=== PATIENT | male | born 1955 | race Caucasian/White ===

== ENCOUNTER → 2018-07-05 | Emergency (ER) | payer MEDICARE, OTHER ==
[~2018-07-05] MED LIST: D50W 50 ml Abboject IV ONE; Sodium Chloride 0.9% 1000 ML 1,000 ML IV SCH
--- NOTE | 2018-07-05 15:35 | ERPHSYRPT ---
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 pt last seen normally last pm. family checks on him. pt looking around confused but moving all ext. pt cannot answer questions. poor historian. pt can stand and walks slowly. Timing/Duration: today Severity: moderate Character of Deficits: unable to speak Baseline/Normal Cognition: alert but confused Current Cognition: alert but confused Baseline Gait: walks w/o assistance Associated Symptoms: confusion, other (does not follow commands), No nausea, No vomiting - Review of Systems Constitutional: No Symptoms Eyes: No Symptoms Ears, Nose, & Throat: No Symptoms Respiratory: No Symptoms Cardiac: No Symptoms Abdominal/Gastrointestinal: No Symptoms Genitourinary Symptoms: No Symptoms Musculoskeletal: No Symptoms Skin: No Symptoms Neurological: Speech Changes Psychological: No Symptoms Endocrine: No Symptoms Hematologic/Lymphatic: No Symptoms Immunological/Allergic: No Symptoms All Other Systems: Reviewed and Negative - Nursing Vital Signs Nursing Vital Signs: Initial Vital Signs O2 Sat by Pulse Oximetry 97 07/05/18 16:15 Pain Scale Pain Intensity 0 - Wallace Coma Scale Best Eye Response (Ciarra): (4) open spontaneously Best Verbal Response (Wallace): (3) inappropriate words Best Motor Response (Ciarra): (5) localizes to pain Ciarra Total: 12 - Physical Exam General Appearance: no apparent distress, alert, anxiety Eye Exam: bilateral eye: normal inspection, PERRL, EOMI Ears, Nose, Throat Exam: normal ENT inspection, moist mucous membranes Neck Exam: normal inspection, non-tender, supple, full range of motion Respiratory: normal breath sounds, lungs clear, airway intact, No chest tenderness, No respiratory distress, No accessory muscle use, No rhonchi, No wheezing, No stridor Cardiovascular: regular rate/rhythm, normal heart sounds, normal peripheral pulses Gastrointestinal: soft, normal bowel sounds Rectal Exam: not done Back Exam: normal inspection, normal range of motion, No CVA tenderness, No vertebral tenderness Extremity Exam: normal inspection, normal range of motion, pelvis stable Mental 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 Exam: normal hearing, PERRL, tongue midline, No facial asymmetry, No facial weakness Skin Exam: normal color, warm, dry SpO2 Interpretation: normal O2 Delivery: Room Air - Course Nursing assessment & vital signs reviewed: Yes EKG Interpreted by Me: RATE (68), Sinus Rhythm, NORMAL AXIS, 1st degree AV Block , Non-specific ST Changes, Other (no comparison) Ordered Tests: Active Orders 24 hr Category Date Time Status Accucheck STAT Care 07/05/18 15:35 Active Fleet Manager STAT Care 07/05/18 15:35 Active Clean Catch Urine Specimen STAT Care 07/05/18 15:35 Active EKG-ER Only STAT Care 07/05/18 15:35 Active Willams [Catheter-[place] Willams] STAT Care 07/05/18 17:18 Active IV Insertion STAT Care 07/05/18 15:35 Active NPO (ED) STAT Care 07/05/18 15:35 Active Pulse Oximetry (ED) STAT Care 07/05/18 15:35 Active HEAD WITHOUT CONTRAST [CT] Routine Exams 07/05/18 15:59 Taken CBC W DIFF Stat Lab 07/05/18 15:40 Completed CMP Stat Lab 07/05/18 15:40 Completed PROTIME WITH INR Stat Lab 07/05/18 15:40 Completed UA W/RFX UR CULTURE Stat Lab 07/05/18 17:24 Completed Urine Triage Profile Stat Lab 07/05/18 Received Medication Summary Generic Name Dose Route Start Last Admin Trade Name Freq PRN Reason Stop Dose Admin Sodium Chloride 1,000 mls @ 50 mls/hr 07/05/18 15:45 07/05/18 15:50 Sodium Chloride 0.9% 1000 Ml IV 08/04/18 15:44 50 mls/hr .Q20H ELIZABETH Administration Discontinued Medications Generic Name Dose Route Start Last Admin Trade Name Freq PRN Reason Stop Dose Admin Dextrose Confirm 07/05/18 17:13 D50w 50 Ml Abboject Administered 07/05/18 17:14 Dose 50 ml IV .STK-MED ONE Dextrose 25 ml 07/05/18 17:14 07/05/18 17:18 D50w 50 Ml Abboject IV 07/05/18 17:15 25 ml STAT ONE Administration Dextrose 25 ml 07/05/18 17:16 07/05/18 17:18 D50w 50 Ml Abboject IV 07/05/18 17:17 25 ml STAT ONE Administration Lab/Rad Data: Laboratory Result Diagrams 07/05/18 15:40 07/05/18 15:40 Laboratory Results 07/05/18 07/05/18 07/05/18 Range/Units 17:57 17:24 15:40 WBC (4.0-10.5) K/mm3 RBC (4.1-5.6) M/mm3 Hgb (12.5-18.0) gm/dl Hct (42-50) % MCV (78-100) fl MCH (26-32) pg MCHC (32-36) g/dl RDW (11.5-14.0) % Plt Count (150-450) K/mm3 MPV (6-9.5) fl Gran % (36.0-66.0) % Eos # (Auto) (0-0.5) Absolute Lymphs (auto) (1.0-4.6) Absolute Monos (auto) (0.0-1.3) Lymphocytes % (24.0-44.0) % Monocytes % (0.0-12.0) % Eosinophils % (0.00-5.0) % Basophils % (0.0-0.4) % Absolute Granulocytes (1.4-6.9) Basophils # (0-0.4) PT 16.3 H (8.83-12.87) SECONDS INR 1.40 (0.8-3.0) Sodium (137-145) mmol/L Potassium (3.5-5.1) mmol/L Chloride (98-107) mmol/L Carbon Dioxide (22-30) mmol/L Anion Gap (5-15) MEQ/L BUN (9-20) mg/dL Creatinine (0.66-1.25) mg/dL Estimated GFR ML/MIN Glucose (74-106) mg/dL Calcium (8.4-10.2) mg/dL Total Bilirubin (0.2-1.3) mg/dL AST (17-59) U/L ALT (0-50) U/L Alkaline Phosphatase (38-126) U/L Ammonia < 9 L (9-30) umol/L Serum Total Protein (6.3-8.2) g/dL Albumin (3.5-5.0) g/dL Urine Color YELLOW (YELLOW) Urine Appearance CLEAR (CLEAR) Urine pH 5.0 (5-6) Ur Specific [place] 1.008 (1.005-1.025) Urine Protein NEGATIVE (Negative) Urine Ketones NEGATIVE (NEGATIVE) Urine Blood NEGATIVE (0-5) Froylan/ul Urine Nitrite NEGATIVE (NEGATIVE) Urine Bilirubin NEGATIVE (NEGATIVE) Urine Urobilinogen NEGATIVE (0-1) mg/dL Ur Leukocyte Esterase NEGATIVE (NEGATIVE) Urine WBC (Auto) NONE (0-5) /HPF Urine RBC (Auto) NONE (0-2) /HPF U Epithel Cells (Auto) NONE (FEW) /HPF Urine Bacteria (Auto) NONE (NEGATIVE) /HPF Urine Mucus (Auto) SLIGHT (NEGATIVE) /HPF Urine Culture Reflexed NO (NO) Urine Glucose >=500 (NEGATIVE) mg/dL 07/05/18 07/05/18 Range/Units 15:40 15:40 WBC 10.0 (4.0-10.5) K/mm3 RBC 4.67 (4.1-5.6) M/mm3 Hgb 13.9 (12.5-18.0) gm/dl Hct 42.5 (42-50) % MCV 91.0 (78-100) fl MCH 29.8 (26-32) pg MCHC 32.7 (32-36) g/dl RDW 13.1 (11.5-14.0) % Plt Count 144 L (150-450) K/mm3 MPV 12.9 H (6-9.5) fl Gran % 80.6 H (36.0-66.0) % Eos # (Auto) 0.28 (0-0.5) Absolute Lymphs (auto) 0.83 L (1.0-4.6) Absolute Monos (auto) 0.81 (0.0-1.3) Lymphocytes % 8.3 L (24.0-44.0) % Monocytes % 8.1 (0.0-12.0) % Eosinophils % 2.8 (0.00-5.0) % Basophils % 0.2 (0.0-0.4) % Absolute Granulocytes 8.10 H (1.4-6.9) Basophils # 0.02 (0-0.4) PT (8.83-12.87) SECONDS INR (0.8-3.0) Sodium 136 L (137-145) mmol/L Potassium 4.2 (3.5-5.1) mmol/L Chloride 101 (98-107) mmol/L Carbon Dioxide 26 (22-30) mmol/L Anion Gap 13.0 (5-15) MEQ/L BUN 21 H (9-20) mg/dL Creatinine 1.02 (0.66-1.25) mg/dL Estimated GFR > 60.0 ML/MIN Glucose 92 (74-106) mg/dL Calcium 9.3 (8.4-10.2) mg/dL Total Bilirubin 1.00 (0.2-1.3) mg/dL AST 33 (17-59) U/L ALT 28 (0-50) U/L Alkaline Phosphatase 166 H (38-126) U/L Ammonia (9-30) umol/L Serum Total Protein 7.1 (6.3-8.2) g/dL Albumin 3.9 (3.5-5.0) g/dL Urine Color (YELLOW) Urine Appearance (CLEAR) Urine pH (5-6) Ur Specific [place] (1.005-1.025) Urine Protein (Negative) Urine Ketones (NEGATIVE) Urine Blood (0-5) Froylan/ul Urine Nitrite (NEGATIVE) Urine Bilirubin (NEGATIVE) Urine Urobilinogen (0-1) mg/dL Ur Leukocyte Esterase (NEGATIVE) Urine WBC (Auto) (0-5) /HPF Urine RBC (Auto) (0-2) /HPF U Epithel Cells (Auto) (FEW) /HPF Urine Bacteria (Auto) (NEGATIVE) /HPF Urine Mucus (Auto) (NEGATIVE) /HPF Urine Culture Reflexed (NO) Urine Glucose (NEGATIVE) mg/dL - Progress Progress: improved Progress Note: 07/05/18 15:54 pt went stat to ct scanner. upon his arrival, pt more conversant. answering questions and following commands. ct scan of head reveals no acute intracranial process. 07/05/18 17:13 pt more confused again. blood glucose checked now 52 07/05/18 17:43 still confused. repeat blood glucose after 50ml D50 is. I spoke with dr. Fry , who is covering for dr. Kyle, and i reviewed pt hx, condition, lab, ekg and ct head results. he and i agree pt should be evaluated by a neurologist. 07/05/18 18:08 [id number] called [facility]. spoke with dr. Gregg in the ED. he informed me no neurologist on staff. I called [facility] and spoke with transfer center. they are putting a call into dr. Diaz(neurologist). repeat blood glucose 134. 07/05/18 18:25 pt appears to be improving. spoke with dr. paz(hospitalist) at [facility]. i reviewed pt hx, condition, labs, ekg, ct scan results. he accepts pt in transfer Discussed with Dr.: Ang, Other Counseled pt/family regarding: lab results, diagnosis, rad results - Departure Time of Disposition: 18:27 Departure Disposition: Transfer Clinical Impression: Altered mental status Condition: Stable Critical Care Time: Yes Critical Care Time(excluding separately billable procedures): 30-74 minutes Referrals: ROSANNA KYLE MD [Primary Care Provider] -
[2018-07-05 15:53] LABS: BASOPHIL % 0.2 % (0.0-0.4); Basophil (Absolute #) 0.02 (0-0.4); Eosinophil % 2.8 % (0.00-5.0); Eosinophil (Absolute #) 0.28 (0-0.5); Granulocytes % 80.6 % (36.0-66.0); Hematocrit 42.5 % (42-50); Hemoglobin 13.9 gm/dl (12.5-18.0); INR 1.4 (0.8-3.0); Lymphocyte (Absolute #) 0.83 (1.0-4.6); Lymphocytes % 8.3 % (24.0-44.0); Mean Corpuscular Hemoglobin 29.8 pg (26-32); Mean Corpuscular Hgb Concent. 32.7 g/dl (32-36); Mean Platelet Volume 12.9 fl (6-9.5); Monocyte (Absolute #) 0.81 (0.0-1.3); Monocytes % 8.1 % (0.0-12.0); PROTIME 16.3 SECONDS (8.83-12.87); Platelet Count 144 K/mm3 (150-450); Red Blood Count 4.67 M/mm3 (4.1-5.6); Red Cell Distribution Width 13.1 % (11.5-14.0)
[2018-07-05 15:58] LABS: ALBUMIN 3.9 g/dL (3.5-5.0); ALKALINE PHOSPHATASE 166 U/L (38-126); BLOOD UREA NITROGEN 21 mg/dL (9-20); CHLORIDE 101 mmol/L (98-107); Calcium 9.3 mg/dL (8.4-10.2); Carbon Dioxide 26 mmol/L (22-30); Creatinine 1 1.02 mg/dL (0.66-1.25); Glucose 92 mg/dL (74-106); Potassium 4.2 mmol/L (3.5-5.1); SGOT/AST 33 U/L (17-59); SGPT/ALT 28 U/L (0-50); SODIUM 136 mmol/L (137-145); Total Protein 7.1 g/dL (6.3-8.2)
[2018-07-05 17:30] LABS: Appearance CLEAR (CLEAR); Bilirubin NEGATIVE (NEGATIVE); Blood NEGATIVE Ery/ul (0-5); Glucose >=500 mg/dL (NEGATIVE); Ketones NEGATIVE (NEGATIVE); Leukocyte Esterase NEGATIVE (NEGATIVE); Mucus SLIGHT /HPF (NEGATIVE); Nitrite NEGATIVE (NEGATIVE); Protein,Urine Dip NEGATIVE (Negative); Specific Gravity 1.008 (1.005-1.025); Urobilinogen NEGATIVE mg/dL (0-1)
[2018-07-05 18:40] LABS: Amphetamine,Urine NEGATIVE (NEGATIVE); Barbiturate,Urine NEGATIVE (NEGATIVE); Benzodiazepine,Urine NEGATIVE (NEGATIVE); Cocaine,Urine NEGATIVE (NEGATIVE); Methadone,Urine NEGATIVE (NEGATIVE); Opiate,Urine NEGATIVE (NEGATIVE); PCP,Urine NEGATIVE (NEGATIVE); THC,Urine NEGATIVE (NEGATIVE)
[2018-07-05 18:48] VITALS: O2SAT 96
[2018-07-05 19:44] VITALS: BP 133/67; PULSE 65
--- NOTE | 2018-07-05 19:53 | XRAY ---
Indication: Confusion and weakness. Multiple contiguous axial images obtained through the head without contrast. Comparison: March 01, 2014. Age-appropriate global atrophy and mild periventricular degenerative micro-ischemia. Tiny left basal ganglia remote lacunar infarct. No acute intracranial hemorrhage, abnormal extra-axial fluid collection, or mass effect. Fourth ventricle is midline without hydrocephalus. Bony calvarium intact. Mild mucosal thickening of both ethmoid and visualized both maxillary sinuses. Again partial opacification of the inferior left mastoid air cells. Impression: 1. Nonacute senile brain including remote left basal ganglia lacunar infarct. 2. Incidental paranasal sinus disease and partial opacification of left mastoid air cells. Comment: Preliminary interpretation was made by [facility] who does not report incidental paranasal sinus disease and opacification of the left mastoid air cells. CTDI 67.22
== END ==
LOC: ED 15:26
DX: R41.82 Altered mental status, unspecified (principal); R41.0 Disorientation, unspecified
CPT/HCPCS: 36415; 51702; 70450; 80053; 80307; 81001; 82140; 82962; 85025; 85610; 93005; 93041; 96374; 96375; 99285; 99291

== ENCOUNTER 2019-02-02 19:34 | Emergency (ER) | payer MEDICARE, OTHER ==
[2019-02-02 20:18] LABS: Absolute Neutrophil Ct (ANC) 8.58 (1.4-6.9); BASOPHIL % 0.4 % (0.0-0.4); Basophil (Absolute #) 0.04 (0-0.4); Eosinophil % 1.9 % (0.00-5.0); Eosinophil (Absolute #) 0.19 (0-0.5); Hematocrit 41.2 % (42-50); Hemoglobin 13.8 gm/dl (12.5-18.0); Lymphocyte (Absolute #) 0.63 (1.0-4.6); Lymphocytes % 6.1 % (24.0-44.0); Mean Cell Volume 91.6 fl (78-100); Mean Corpuscular Hemoglobin 30.7 pg (26-32); Mean Corpuscular Hgb Concent. 33.5 g/dl (32-36); Mean Platelet Volume 12.5 fl (6-9.5); Monocyte (Absolute #) 0.82 (0.0-1.3); Neutrophil % 83.6 % (36.0-66.0); Platelet Count 145 K/mm3 (150-450); Red Cell Distribution Width 12.6 % (11.5-14.0); White Blood Count 10.3 K/mm3 (4.0-10.5)
[2019-02-02 20:30] LABS: ALBUMIN 4.5 g/dL (3.5-5.0); ALKALINE PHOSPHATASE 138 U/L (38-126); ANION GAP 19.9 MEQ/L (5-15); BLOOD UREA NITROGEN 18 mg/dL (9-20); CHLORIDE 96 mmol/L (98-107); Calcium 10.1 mg/dL (8.4-10.2); Carbon Dioxide 27 mmol/L (22-30); Creatinine 1 1.02 mg/dL (0.66-1.25); Glucose 154 mg/dL (74-106); Potassium 4.3 mmol/L (3.5-5.1); SGOT/AST 23 U/L (17-59); SGPT/ALT 21 U/L (0-50); SODIUM 139 mmol/L (137-145); Total Protein 7.6 g/dL (6.3-8.2)
[2019-02-02 20:43] VITALS: BP 170/104; PULSE 72; O2SAT 97
[2019-02-02 21:40] LABS: Appearance CLEAR (CLEAR); Bilirubin NEGATIVE (NEGATIVE); Blood NEGATIVE Ery/ul (0-5); Glucose >=500 mg/dL (NEGATIVE); Ketones TRACE (NEGATIVE); Leukocyte Esterase NEGATIVE (NEGATIVE); Mucus SLIGHT /HPF (NEGATIVE); Nitrite NEGATIVE (NEGATIVE); Protein,Urine Dip NEGATIVE (Negative); Specific Gravity 1.015 (1.005-1.025); Urobilinogen NEGATIVE mg/dL (0-1); WBC 0-2 /HPF (0-5)
--- NOTE | 2019-02-02 21:51 | ERPHSYRPT ---
- History of Present Illness Time Seen by Provider: 02/02/19 19:50 Source: patient, family, EMS Exam Limitations: no limitations Patient Subjective Stated Complaint: Hypoglycemia Triage Nursing Assessment: Patient brought into ED per EMS and transferred self to bed. Patient A+O X3. Patient's skin pink, warm and dry. Patient complains of hypoglycemia. Patient's daughter called patient to talk to him and he was not making any sense. Patient's daughter called 911. Patient's grandson arrived to home before EMS and patient was not making any sense. EMS arrived blood sugar was 78. 1/2 amp of D50 was given Blood sugar became 151. Patient's blood sugar currently 137. Patient denies pain or discomfort. Physician History: Discussed events leading to ER eval; Pt states took Insulin about 9:30 - had a lot of things to do and "let it go" - too long referring to eating. Sister talked to him by phone and called his daughter - she called patient - he was not making sense - visited him / EMS found BS to be 78 - he was eating. Given Glucose enroute. On exam by me he is back to normal with no complaints. Allergies/Adverse Reactions: No Known Drug Allergies Allergy (Unverified 02/02/19 19:48) Hx Influenza Vaccination/Date Given: Yes Hx Pneumococcal Vaccination/Date Given: No Immunizations Up to Date: Yes - Review of Systems Constitutional: No Symptoms Ears, Nose, & Throat: No Symptoms Respiratory: No Symptoms Cardiac: No Symptoms Neurological: No Symptoms, No Dizziness, No Focal Weakness, No Gait Changes, No Headache Psychological: No Symptoms All Other Systems: Reviewed and Negative - Past Medical History Pertinent Past Medical History: Yes Neurological History: Stroke ENT History: Other Cardiac History: Coronary Artery Disease Respiratory History: No Pertinent History Endocrine Medical History: Diabetes Type II Musculoskeletal History: No Pertinent History GI Medical History: Crohns Disease History: No Pertinent History Psycho-Social History: No Pertinent History Male Reproductive Disorders: No Pertinent History Other Medical History: retinopathy - Past Surgical History Past Surgical History: Yes Neuro Surgical History: No Pertinent History Cardiac: CABG Respiratory: No Pertinent History Gastrointestinal: No Pertinent History Genitourinary: No Pertinent History Musculoskeletal: No Pertinent History Male Surgical History: No Pertinent History - Social History Smoking Status: Current every day smoker How long have you smoked: years Exposure to second hand smoke: Yes Drug Use: none Patient Lives Alone: Yes - Nursing Vital Signs Nursing Vital Signs: Initial Vital Signs Pulse Rate 74 02/02/19 19:37 Respiratory Rate 18 02/02/19 19:37 Blood Pressure 149/75 02/02/19 19:37 O2 Sat by Pulse Oximetry 98 02/02/19 19:37 Pain Scale Pain Intensity 0 - Physical Exam General Appearance: no apparent distress Eye Exam: PERRL/EOMI Ears, Nose, Throat Exam: normal ENT inspection, pharynx normal Neck Exam: normal inspection, non-tender Respiratory Exam: normal breath sounds, lungs clear, airway intact Cardiovascular Exam: regular rate/rhythm, normal heart sounds, normal peripheral pulses Extremity Exam: normal inspection, normal range of motion Neurologic Exam: alert, oriented x 3, cooperative, normal mood/affect Skin Exam: normal color, warm, dry SpO2 Interpretation: normal SpO2: 97 O2 Delivery: Room Air - Course Nursing assessment & vital signs reviewed: Yes Ordered Tests: Active Orders 24 hr Category Date Time Status ACCUCHECK [Accucheck] STAT Care 02/02/19 19:45 Active EKG-ER Only STAT Care 02/02/19 19:45 Active IV Insertion STAT Care 02/02/19 19:45 Active CBC W DIFF Stat Lab 02/02/19 20:16 Completed CMP Stat Lab 02/02/19 20:16 Completed UA W/RFX UR CULTURE Stat Lab 02/02/19 21:30 Completed Lab/Rad Data: Laboratory Result Diagrams 02/02/19 20:16 02/02/19 20:16 Laboratory Results 02/02/19 02/02/19 02/02/19 Range/Units 21:30 20:16 20:16 WBC 10.3 (4.0-10.5) K/mm3 RBC 4.50 (4.1-5.6) M/mm3 Hgb 13.8 (12.5-18.0) gm/dl Hct 41.2 L (42-50) % MCV 91.6 (78-100) fl MCH 30.7 (26-32) pg MCHC 33.5 (32-36) g/dl RDW 12.6 (11.5-14.0) % Plt Count 145 L (150-450) K/mm3 MPV 12.5 H (6-9.5) fl Gran % 83.6 H (36.0-66.0) % Eos # (Auto) 0.19 (0-0.5) Absolute Lymphs (auto) 0.63 L (1.0-4.6) Absolute Monos (auto) 0.82 (0.0-1.3) Lymphocytes % 6.1 L (24.0-44.0) % Monocytes % 8.0 (0.0-12.0) % Eosinophils % 1.9 (0.00-5.0) % Basophils % 0.4 (0.0-0.4) % Absolute Granulocytes 8.58 H (1.4-6.9) Basophils # 0.04 (0-0.4) Sodium 139 (137-145) mmol/L Potassium 4.3 (3.5-5.1) mmol/L Chloride 96 L (98-107) mmol/L Carbon Dioxide 27 (22-30) mmol/L Anion Gap 19.9 H (5-15) MEQ/L BUN 18 (9-20) mg/dL Creatinine 1.02 (0.66-1.25) mg/dL Estimated GFR > 60.0 ML/MIN Glucose 154 H (74-106) mg/dL Calcium 10.1 (8.4-10.2) mg/dL Total Bilirubin 0.70 (0.2-1.3) mg/dL AST 23 (17-59) U/L ALT 21 (0-50) U/L Alkaline Phosphatase 138 H (38-126) U/L Serum Total Protein 7.6 (6.3-8.2) g/dL Albumin 4.5 (3.5-5.0) g/dL Urine Color YELLOW (YELLOW) Urine Appearance CLEAR (CLEAR) Urine pH 5.0 (5-6) Ur Specific [place] 1.015 (1.005-1.025) Urine Protein NEGATIVE (Negative) Urine Ketones TRACE (NEGATIVE) Urine Blood NEGATIVE (0-5) Froylan/ul Urine Nitrite NEGATIVE (NEGATIVE) Urine Bilirubin NEGATIVE (NEGATIVE) Urine Urobilinogen NEGATIVE (0-1) mg/dL Ur Leukocyte Esterase NEGATIVE (NEGATIVE) Urine WBC (Auto) 0-2 (0-5) /HPF Urine RBC (Auto) NONE (0-2) /HPF U Epithel Cells (Auto) NONE (FEW) /HPF Urine Mucus (Auto) SLIGHT (NEGATIVE) /HPF Urine Culture Reflexed NO (NO) Urine Glucose >=500 (NEGATIVE) mg/dL - Progress Progress: improved Progress Note: 02/02/19 21:51 most recent BS reeported 185; patient is eating and wants to go home. Stable - daughter agrees. - Departure Departure Disposition: Home Clinical Impression: Hypoglycemia Condition: Good Critical Care Time: Yes Critical Care Time(excluding separately billable procedures): Critical 30-74 mins (Reiew of labs; clinical picture, hx from patient and daughter/family; following of BS in ER to determine safety of return to home) Referrals: ROSANNA KYLE MD [Primary Care Provider] - Instructions: Low Blood Sugar, Adult (DC), Low Blood Sugar in People With Diabetes Additional Instructions: Resume usual medications; follow blood sugar tomorrow; let primary care know of your ER visit and the events leading to ER visit.
== END 2019-02-02 22:09 | disposition home or self-care (01) ==
LOC: ED 19:34
DX: E11.649 Type 2 diabetes mellitus with hypoglycemia without coma (principal)
CPT/HCPCS: 36000; 36415; 80053; 81001; 82962; 85025; 93005; 99284; 99291

== ENCOUNTER 2019-07-08 21:25 | Emergency (ER) | payer MEDICARE, OTHER ==
--- NOTE | 2019-07-08 21:55 | ERPHSYRPT ---
- History of Present Illness Time Seen by Provider: 07/08/19 21:38 Source: patient, family Patient Subjective Stated Complaint: Patient states " I was at my daughters and was leaving and was trying to put the cat back in the house and fell down 2 concrete steps". Patient states " I have no idea how I fell". Patient states Triage Nursing Assessment: . Physician History: Is a 64-year-old male who presents with a chief complaint of left knee pain. He has secondary complaints of right shoulder pain and right-sided chest wall pain in addition to abrasions to both knees after a fall that took place this afternoon, specifically around 12 PM. He reportedly was on some steps when in a pad in the house when he fell. The patient does not remember exactly how he fell but he denies losing consciousness and from his description it does not sound like he had a syncopal event. Of note, the patient endorsed that he has been off balance and reportedly has had some fluid coming out of his left ear for some time now, a number of years. He denies fever, chills, headache, neck pain, shortness of breath. He is currently on dabigatran and appears to have some swelling and tenderness noted to the medial aspect of the left knee. The patient was able to get up on his own but able to ambulate and weight-bear on the left lower extremity although with some pain noted to his left knee. The daughter was at bedside and reportedly brought him to the emergency department because she is noticed that the patient has had a "tremor. The patient denies using a cane or walker at home. Allergies/Adverse Reactions: No Known Drug Allergies Allergy (Unverified 07/08/19 21:33) Hx Influenza Vaccination/Date Given: Yes Hx Pneumococcal Vaccination/Date Given: No - Review of Systems Constitutional: No Fever, No Chills Musculoskeletal: Fall - Past Medical History Pertinent Past Medical History: Yes Neurological History: Stroke ENT History: Other Cardiac History: Coronary Artery Disease Respiratory History: No Pertinent History Endocrine Medical History: Diabetes Type II Musculoskeletal History: No Pertinent History GI Medical History: Crohns Disease History: No Pertinent History Psycho-Social History: No Pertinent History Male Reproductive Disorders: No Pertinent History Other Medical History: retinopathy - Past Surgical History Past Surgical History: Yes Neuro Surgical History: No Pertinent History Cardiac: CABG Respiratory: No Pertinent History Gastrointestinal: No Pertinent History Genitourinary: No Pertinent History Musculoskeletal: No Pertinent History Male Surgical History: No Pertinent History - Social History Smoking Status: Former smoker How long have you smoked: years Exposure to second hand smoke: Yes Drug Use: none Patient Lives Alone: Yes - Nursing Vital Signs Nursing Vital Signs: Initial Vital Signs Temperature 99.0 F 07/08/19 21:40 Pulse Rate 92 H 07/08/19 21:40 Respiratory Rate 20 07/08/19 21:40 Blood Pressure 152/88 07/08/19 21:40 O2 Sat by Pulse Oximetry 95 07/08/19 21:40 Pain Scale Pain Intensity 6 - Physical Exam General Appearance: no apparent distress, thin Eye Exam: PERRL/EOMI, eyes nml inspection, No EOM palsy/anisocoria Ears, Nose, Throat Exam: normal ENT inspection, TMs normal, pharynx normal, No TM abnormal (L), No pharyngeal erythema, No tonsillar exudate Neck Exam: normal inspection, non-tender, supple, other (No midline spine tenderness, crepitus, or step-offs) Respiratory Exam: normal breath sounds, chest tenderness (Right-sided chest wall ), lungs clear, airway intact, No respiratory distress Cardiovascular Exam: regular rate/rhythm, normal heart sounds, normal peripheral pulses, capillary refill <2 sec, other (Radial and DP 2+ bilaterally) , No murmur, No pulse deficit Gastrointestinal/Abdomen Exam: soft, No tenderness, No distention, No mass, No guarding Rectal Exam: deferred Back Exam: normal inspection, other (No flank ecchymosis ), No vertebral tenderness, No rash Extremity Exam: pelvis stable, swelling, tenderness, other (Tenderness, swelling , and ecchymosis noted to the medial aspect of the L knee. The patient was able to extend the left knee and lift off the the bed. No joint laxity with valgus and varus stressing. Abrasions noted to both knees. No obvious deformity or crepitus noted both knees. The patient was able to weight bear on the L lower extremity although with some mild discomfort noted to the L knee and with no hip pain. The patient appears to have a chronic appearing deformity noted the R clavicle. No significant tenderness noted to the R shoulder and upper arm and clavicle. The R shoulder joint seemed stiff on exam. ), No normal range of motion, No calf tenderness, No deformities Neurologic Exam: alert, oriented x 3, other (Sensation to gross touch intact in feet bilaterally and both hands. Patient noted to have an intermittent full body tremor that may be chills), No motor deficits, No sensory deficit Skin Exam: normal color, warm, dry, No rash, No petechiae Lymphatic Exam: other (Abrasions noted to both knees with no active bleeding) SpO2 Interpretation: normal SpO2: 95 O2 Delivery: Room Air - Course Nursing assessment & vital signs reviewed: Yes EKG Interpreted by Me: RATE, Sinus Rhythm, Right [place] Deviation, Right Bundle Branch Block, Other (Sinus rhythm, Ventricular rate 79 bpm, MI interval 250 ms, QRS duration 135 ms, QT/QTc 396 2 453 msNo evidence of acute myocardial ischemia or injury) - Radiology Exams Shoulder X-ray Interpretation: Interpreted by me, Reviewed by me, Negative (No fracture or dislocation noted to the right shoulder joint, clavicle, and upper arm) Knee X-ray Interpretation: Interpreted by me, Reviewed by me, Negative Chest X-ray Interpretation: Reviewed by me (Moderate bilateral centrilobular emphysematous changes. No pleural effusion. No pneumothorax. Sternotomy wires consistent with previous sternotomy incision any evidence of prior CABG. Mild compression fracture to mid thoracic spine, age-indeterminate. Impression : No definitive acute abnormality. Additional findings as described.) - CT Exams Head CT Interpretation: Negative (CT without contrast: Generalized atrophy and chronic white matter ischemic changes. Normal ventricles. No acute fracture. There is scattered mucosal thickening in the para-sinuses. Visualized mastoid air cells are well aerated. Soft tissues are unremarkable.) Ordered Tests: Active Orders 24 hr Category Date Time Status EKG-ER Only STAT Care 07/08/19 21:52 Active Wound Care STAT Care 07/08/19 21:52 Active CHEST 2 VIEWS (PA AND LAT) Stat Exams 07/08/19 21:50 Completed HEAD WITHOUT CONTRAST [CT] Stat Exams 07/08/19 21:49 Taken KNEE (1 OR 2 VIEW) Stat Exams 07/08/19 21:50 Taken SHOULDER Stat Exams 07/08/19 21:50 Taken Medication Summary Discontinued Medications Generic Name Dose Route Start Last Admin Trade Name Freq PRN Reason Stop Dose Admin Hydrocodone Bitart/Acetaminophen 1 tab 07/08/19 21:52 07/08/19 22:03 [place] 5/325 Mg PO 07/08/19 21:53 1 tab STAT ONE Administration Hydrocodone Bitart/Acetaminophen Confirm 07/08/19 22:01 [place] 5/325 Mg Administered 07/08/19 22:02 Dose 1 tab .ROUTE .STK-MED ONE Bacitracin Zinc 0.9 gm 07/08/19 21:54 07/08/19 22:03 Baciguent Packet TP 07/08/19 21:55 0.9 gm STAT ONE Administration Bacitracin Zinc Confirm 07/08/19 22:01 Baciguent Packet Administered 07/08/19 22:02 Dose 1 gm .ROUTE .STK-MED ONE Tetanus/Diphtheria Toxoids Adsorbed 0.5 ml 07/08/19 21:53 07/08/19 22:00 Tenivac Vial IM 07/08/19 21:54 Not Given .ONCE ONE - Progress Progress: unchanged, improved, re-examined Progress Note: 07/08/19 23:05 I reviewed the patient's EMR it appears he had an EKG in January 2019 that was similar in appearance, specifically with a right bundle branch block 07/09/19 08:50 Non-toxic in appearance. Patient seems to have suffered a mechanical fall. XR and CT reviewed. No significant mastoid effusion noted on this CT and with evidence of mastoiditis on exam and no active drainage noted in the L ear. R shoulder seems stiff and patient reported hx of R clavicle fracture and prior injury to R shoulder joint with residual stiffness to this joint. No acute injuries noted on XR but waiting formal radiology review. CXR reviewed and appears to have evidence of old R rib fractures and with no evidence of PTX, PNA , pulmonary effusion and sternotomy wires appear intact. L Knee XR without obvious fracture and low suspicion for knee dislocation given his mechanism and waiting formal radiology review as well. Patient able to weight bear on L leg and knee and CT deferred given low suspicion for fx at this time. CT without evidence of ICH/traumatic SDH or SAH and with not evidence of skull fracture. Intermittent tremor may be chills but unsure but feel he'll be ok to f/u with PCP for this as OP. The patient was given a short course of [place] to take for pain. An attempt to send him home with a walker was made, but no walker was available to be given. Prescription for walker was hand written. The patient' s daughter was instructed to purchase a walker tomorrow at any medical supply store/drug store and to fill his [place] as well. They were informed that radiology will formally read XR in the morning and the patient will be contacted if any discrepancies are present. Otherwise, recommeneded PCP follow- up by end of this week if able and to inquire about the need for home health and PT. The patient and daughter agreed with and verbally understood the discharge plan 07/09/19 08:58 Counseled pt/family regarding: diagnosis, need for follow-up, rad results - Departure Departure Disposition: Home Clinical Impression: Fall (on) (from) other stairs and steps, initial encounter, Contusion of left knee, Contusion, chest wall, Contusion of right shoulder, Abrasion of both knees , Tremor Condition: Stable Critical Care Time: No Referrals: ROSANNA KYLE MD [Primary Care Provider] - Instructions: Tremor, Skin Abrasions, Wound Care (DC), Contusion (DC), Preventing Falls Prescriptions: Hydrocodone/APAP 5-325 Tab^^^ [[place] 5-325 Tablet^^^] 1 tab PO Q6HPRN PRN #10 tablet MDD 6 PRN Reason: Pain Bacitracin Packet [Baciguent Packet] 0.9 gm TP BID #10 pckt
[2019-07-08] MEDS: TENIVAC VIAL IM ONE (22:00)
[2019-07-08] MEDS ORDERED: BACIGUENT PACKET ONE (22:01)
[2019-07-08] MEDS ORDERED: NORCO 5/325 MG ONE (22:01)
[2019-07-08] MEDS: BACIGUENT PACKET TP ONE (22:03)
[2019-07-08] MEDS: NORCO 5/325 MG PO ONE (22:03)
[2019-07-08 23:36] VITALS: BP 151/91; PULSE 82
--- NOTE | 2019-07-09 08:36 | XRAY ---
Indication: Pain following fall. Comparison: February 18, 2007. PA/lateral chest remains hyperinflated and clear again with a few tiny calcified granulomas. Heart is not enlarged again with CABG surgery. Bony thorax intact again demonstrates mild osteopenia, degenerative changes, and old right clavicle fracture. New T8 superior endplate fracture with less than 25% height loss of uncertain chronicity. Impression: T8 fracture of uncertain chronicity. Otherwise nonacute hyperinflated chest with chronic features. Comment: Preliminary interpretation was made by [facility]. No critical discrepancy.
--- NOTE | 2019-07-09 08:40 | XRAY ---
Indication: Pain following fall. Comparison: None 3 views of the right shoulder demonstrates osteopenia, old distal clavicle fracture, minimal bilateral carotid calcifications, and CABG surgery. No other bony, articular, or soft tissue abnormalities.
--- NOTE | 2019-07-09 08:42 | XRAY ---
Indication: Pain following fall. Comparison: None AP/lateral left knee demonstrates mild osteopenia, minimal medial joint space narrowing, small nonspecific effusion, and scattered vascular calcifications. No other bony, articular, or soft tissue abnormalities.
[2019-07-09 08:47] VITALS: O2SAT 95
--- NOTE | 2019-07-09 08:48 | XRAY ---
Indication: Right head injury following fall. Multiple contiguous axial images obtained through the head without contrast. Comparison: July 05, 2018. Again there is age-appropriate global atrophy, mild periventricular degenerative micro-ischemia bilaterally, and remote left thalamus lacunar infarct. New tiny right basal ganglia remote appearing lacunar infarct. No acute intracranial hemorrhage, abnormal extra-axial fluid collection, or mass effect. Fourth ventricle is midline without hydrocephalus. Bony calvarium intact. There is continued mild mucosal thickening of both ethmoid and both maxillary sinuses without fluid leveling. Stable partial opacification of the inferior left mastoid air cells. Impression: 1. Again nonacute senile brain with incidental remote appearing lacunar infarcts as detailed. 2. Stable incidental paranasal sinus disease and partial opacification of the left mastoid air cells. Comment: Preliminary interpretation was made by [facility]. No critical discrepancy.
== END 2019-07-08 23:35 | disposition home or self-care (01) ==
LOC: ED 21:25
DX: S80.02XA Contusion of left knee, initial encounter (principal); S20.219A Contusion of unspecified front wall of thorax, initial encounter; S40.011A Contusion of right shoulder, initial encounter; S80.212A Abrasion, left knee, initial encounter; S80.211A Abrasion, right knee, initial encounter; W10.9XXA Fall (on) (from) unspecified stairs and steps, initial encounter; Y93.K9 Activity, other involving animal care; Y92.89 Other specified places as the place of occurrence of the external cause; M25.562 Pain in left knee; M25.511 Pain in right shoulder; R07.89 Other chest pain; R25.1 Tremor, unspecified; E11.9 Type 2 diabetes mellitus without complications; I25.10 Atherosclerotic heart disease of native coronary artery without angina pectoris; K50.90 Crohn's disease, unspecified, without complications
CPT/HCPCS: 70450; 71046; 73030; 73560; 93005; 99284; A9270-GY

== ENCOUNTER 2020-10-24 15:38 | Observation (INO) | payer MEDICARE ==
[2020-10-24] MEDS ORDERED: Sodium Chloride 0.9% 1000 ML 1,000 ML IV STA (16:08)
[2020-10-24] MEDS ORDERED: Sodium Chloride 0.9% 1000 ML 1,000 ML ONE (16:09)
--- NOTE | 2020-10-24 16:27 | ERPHSYRPT ---
- History of Present Illness Time Seen by Provider: 10/24/20 15:45 Source: patient, family Exam Limitations: no limitations Patient Subjective Stated Complaint: Patient states he has had dizziness for several weeks. States it is becoming more frequent. States he has been " lightheaded dizzy and his eyes are a little wonky" Triage Nursing Assessment: Patient wheeled into ED with c/o dizziness. States he is having no other s/s associated with dizziness Physician History: 65 years old male with history of coronary artery disease status post CABG, hypertension, hyperlipidemia on Pradaxa presented in the ER with worsening dizziness for the last few weeks. Patient reports he gets dizzy immediately after getting up from a sitting position and sometimes taking a quick turn, lightheaded feeling as if he is going to pass out but did not. It lasted for few seconds to a minute and improves. It used to happen once after few months for almost a year but lately is getting more frequent episodes. Denies any associated palpitations or shortness of breath. Denies any numbness tingling or focal weakness. Does have blurry vision momentarily which improves. Denies any chest pain before or after the episodes. No nausea or vomiting. Reports good oral intake. Denies any urinary symptoms. No recent sick contact. Timing/Duration: week(s), intermittent, worse Severity: moderate Baseline/Normal Cognition: alert oriented x 3 Current Cognition: alert oriented x 3 Allergies/Adverse Reactions: No Known Drug Allergies Allergy (Verified 10/24/20 15:54) Home Medications: Aspirin 81 gm Chew [Baby Aspirin 81 mg Chew] 81 mg PO DAILY 10/24/20 [History] Atorvastatin Calcium 40 mg PO DAILY 10/24/20 [History] Budesonide [Budesonide EC] 3 mg PO TID 10/24/20 [History] Dabigatran Etexilate Mesylate [Pradaxa] 75 mg PO DAILY 10/24/20 [History] Dronedarone HCl [Multaq] 400 mg PO BID 10/24/20 [History] Gabapentin 100 mg PO DAILY 10/24/20 [History] Hydrocodone/Acetaminophen [Hydrocodone-Acetamin 10-325 mg] 1 tab PO BID 10/24/20 [History] Insulin Aspart [Novolog] 10 units SQ TID 10/24/20 [History] Insulin Detemir [Levemir] 10 units SQ DAILY 10/24/20 [History] Linagliptin/Metformin HCl [Jentadueto Xr 2.5 mg-1,000 mg] 2.5 mg PO DAILY 10/24/20 [History] Losartan Potassium 25 mg PO DAILY 10/24/20 [History] PANTOPRAZOLE 40 mg Tablet [Protonix 40MG Tablet] 40 mg PO DAILY 10/24/20 [History] Hx Tetanus, Diphtheria Vaccination/Date Given: No (unknown) Hx Influenza Vaccination/Date Given: Yes Hx Pneumococcal Vaccination/Date Given: No Immunizations Up to Date: No (unknown) Travel Risk - International Travel Have you traveled outside of the country in past 3 weeks: No - Coronavirus Screening Are you exhibiting any of the following symptoms?: No Close contact with a COVID-19 positive Pt in past 14-21 Days: No - Vaccine Status Have you recieved a Covid-19 vaccination: Yes 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: [employer] - Vaccination Dates Date of 2cond Vaccination (if applicable): 07/04/20 - Review of Systems Constitutional: No Symptoms Eyes: No Symptoms Ears, Nose, & Throat: No Symptoms Respiratory: No Symptoms Cardiac: No Symptoms Abdominal/Gastrointestinal: No Symptoms Genitourinary Symptoms: No Symptoms Musculoskeletal: No Symptoms Skin: No Symptoms Neurological: Dizziness Psychological: No Symptoms Endocrine: No Symptoms Hematologic/Lymphatic: No Symptoms Immunological/Allergic: No Symptoms - Past Medical History Pertinent Past Medical History: Yes Neurological History: Stroke ENT History: Other Cardiac History: Coronary Artery Disease Respiratory History: No Pertinent History Endocrine Medical History: Diabetes Type II Musculoskeletal History: No Pertinent History GI Medical History: Crohns Disease History: No Pertinent History Psycho-Social History: No Pertinent History Male Reproductive Disorders: No Pertinent History Other Medical History: retinopathy - Past Surgical History Past Surgical History: Yes Neuro Surgical History: No Pertinent History Cardiac: CABG Respiratory: No Pertinent History Gastrointestinal: No Pertinent History Genitourinary: No Pertinent History Musculoskeletal: No Pertinent History Male Surgical History: No Pertinent History - Social History Smoking Status: Former smoker How long have you smoked: years Exposure to second hand smoke: Yes Drug Use: none Patient Lives Alone: Yes - Nursing Vital Signs Nursing Vital Signs: Initial Vital Signs O2 Sat by Pulse Oximetry 95 10/24/20 16:27 Pain Scale Pain Intensity 0 - [place] Coma Scale Best Eye Response ([place]): (4) open spontaneously Best Verbal Response ([place]): (5) oriented Best Motor Response ([place]): (6) obeys commands [place] Total: 15 - Physical Exam General Appearance: no apparent distress, alert Eye Exam: bilateral eye: normal inspection, PERRL, EOMI Ears, Nose, Throat Exam: normal ENT inspection, TMs normal, pharynx normal Neck Exam: normal inspection, non-tender, supple, full range of motion Respiratory: normal breath sounds, lungs clear Cardiovascular: regular rate/rhythm, normal heart sounds Gastrointestinal: soft, normal bowel sounds, No tenderness Back Exam: normal inspection, normal range of motion Extremity Exam: normal inspection, normal range of motion Mental Status: alert, oriented x 3, 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 Exam: normal hearing, normal speech, PERRL, No facial asymmetry, No facial droop Coordination/Gait: normal finger to nose, normal cerebellar function Motor/Sensory: no motor deficit, no sensory deficit, no pronator drift, negative Babinski's sign DTR: bicep (R): 2+, bicep (L): 2+, knee (R): 2+, knee (L): 2+ Skin Exam: normal color SpO2 Interpretation: normal SpO2: 95 O2 Delivery: Room Air - Course EKG Interpreted by Me: RATE (58), Sinus Mac, NORMAL AXIS, Right Bundle Branch Block, Non-specific ST Changes Ordered Tests: Active Orders 24 hr Category Date Time Status Auger Operator STAT Care 10/24/20 16:13 Active EKG-ER Only STAT Care 10/24/20 16:12 Active IV Insertion STAT Care 10/24/20 16:06 Active Orthostatic Vital Signs STAT Care 10/24/20 16:06 Active POCT Glucose Check STAT Care 10/24/20 16:12 Active CHEST 1 VIEW (PORTABLE) Stat Exams 10/24/20 16:13 Completed HEAD WITHOUT CONTRAST [CT] Stat Exams 10/24/20 16:13 Completed CBC W DIFF Stat Lab 10/24/20 16:00 Completed CMP Stat Lab 10/24/20 16:00 Completed Lactic Acid Stat Lab 10/24/20 16:19 Completed MAGNESIUM Stat Lab 10/24/20 16:00 Completed TROPONIN Q3H Lab 10/24/20 16:00 Completed TROPONIN Q3H Lab 10/24/20 19:15 Ordered TROPONIN Q3H Lab 10/24/20 22:15 Ordered TROPONIN Q3H Lab 10/25/20 01:15 Ordered TROPONIN Q3H Lab 10/25/20 04:15 Ordered UA W/RFX UR CULTURE Stat Lab 10/24/20 17:12 Ordered Medication Summary Discontinued Medications Generic Name Dose Route Start Last Admin Trade Name Daphne PRN Reason Stop Dose Admin Sodium Chloride 1,000 mls @ 999 mls/hr 10/24/20 16:08 10/24/20 16:11 Sodium Chloride 0.9% 1000 Ml IV 10/24/20 17:08 999 mls/hr .Q1H1M STA Administration Sodium Chloride Confirm 10/24/20 16:09 Sodium Chloride 0.9% 1000 Ml Administered 10/24/20 16:10 Dose 1,000 mls @ ud .ROUTE .STK-MED ONE Lab/Rad Data: Laboratory Result Diagrams 10/24/20 16:00 10/24/20 16:00 Laboratory Results 10/24/20 10/24/20 10/24/20 Range/Units 16:19 16:00 16:00 WBC (4.0-10.5) K/mm3 RBC (4.1-5.6) M/mm3 Hgb (12.5-18.0) gm/dl Hct (42-50) % MCV (78-100) fl MCH (26-32) pg MCHC (32-36) g/dl RDW (11.5-14.0) % Plt Count (150-450) K/mm3 MPV (7.5-11.0) fl Gran % (36.0-66.0) % Eos # (Auto) (0-0.5) Absolute Lymphs (auto) (1.0-4.6) Absolute Monos (auto) (0.0-1.3) Lymphocytes % (24.0-44.0) % Monocytes % (0.0-12.0) % Eosinophils % (0.00-5.0) % Basophils % (0.0-0.4) % Absolute Granulocytes (1.4-6.9) Basophils # (0-0.4) Sodium 133 L (137-145) mmol/L Potassium 4.6 (3.5-5.1) mmol/L Chloride 97 L (98-107) mmol/L Carbon Dioxide 28 (22-30) mmol/L Anion Gap 12.4 (5-15) MEQ/L BUN 19 (9-20) mg/dL Creatinine 0.84 (0.66-1.25) mg/dL Estimated GFR > 60.0 ML/MIN Glucose 306 H (74-106) mg/dL Lactic Acid 1.7 (0.4-2.0) Calcium 9.4 (8.4-10.2) mg/dL Magnesium 2.2 (1.6-2.3) mg/dL Total Bilirubin 0.70 (0.2-1.3) mg/dL AST 30 (17-59) U/L ALT 24 (0-50) U/L Alkaline Phosphatase 148 H (38-126) U/L Troponin I < 0.012 (0.000-0.034) ng/mL Serum Total Protein 7.2 (6.3-8.2) g/dL Albumin 4.3 (3.5-5.0) g/dL 10/24/20 Range/Units 16:00 WBC 6.4 (4.0-10.5) K/mm3 RBC 4.64 (4.1-5.6) M/mm3 Hgb 13.7 (12.5-18.0) gm/dl Hct 43.5 (42-50) % MCV 93.8 (78-100) fl MCH 29.5 (26-32) pg MCHC 31.5 L (32-36) g/dl RDW 12.8 (11.5-14.0) % Plt Count 143 L (150-450) K/mm3 MPV 13.8 H (7.5-11.0) fl Gran % 73.8 H (36.0-66.0) % Eos # (Auto) 0.56 H (0-0.5) Absolute Lymphs (auto) 0.64 L (1.0-4.6) Absolute Monos (auto) 0.45 (0.0-1.3) Lymphocytes % 10.0 L (24.0-44.0) % Monocytes % 7.0 (0.0-12.0) % Eosinophils % 8.7 H (0.00-5.0) % Basophils % 0.5 (0.0-0.4) % Absolute Granulocytes 4.74 (1.4-6.9) Basophils # 0.03 (0-0.4) Sodium (137-145) mmol/L Potassium (3.5-5.1) mmol/L Chloride (98-107) mmol/L Carbon Dioxide (22-30) mmol/L Anion Gap (5-15) MEQ/L BUN (9-20) mg/dL Creatinine (0.66-1.25) mg/dL Estimated GFR ML/MIN Glucose (74-106) mg/dL Lactic Acid (0.4-2.0) Calcium (8.4-10.2) mg/dL Magnesium (1.6-2.3) mg/dL Total Bilirubin (0.2-1.3) mg/dL AST (17-59) U/L ALT (0-50) U/L Alkaline Phosphatase (38-126) U/L Troponin I (0.000-0.034) ng/mL Serum Total Protein (6.3-8.2) g/dL Albumin (3.5-5.0) g/dL - Progress Progress: improved, re-examined Progress Note: 10/24/20 17:31 65 years old is evaluated for lightheadedness/dizziness. Nonfocal neuro exam on presentation and throughout stay in the ER. Patient was orthostatic positive with blood pressure dropping from 180s to 110s from lying to standing position. Given fluid bolus, reevaluation feeling better. Normal white count, chemistry profile grossly unremarkable except for elevated glucose 306. I have obtained CT head which showed old lacunar infarct and no new acute findings. Does have sinusitis and left mastoid air cell opacification. Discussed with , recommended starting on Levaquin, gentle hydration and patient would be admitted for observation. Plan discussed with patient and family who understand and agree with it. Discussed with : Shorty Will see patient in: hospital (observation) Counseled pt/family regarding: lab results, diagnosis, rad results - Departure Departure Disposition: Observation Clinical Impression: Orthostatic dizziness Sinusitis Qualifiers: Sinusitis location: unspecified location Chronicity: unspecified Qualified Code(s): J32.9 - Chronic sinusitis, unspecified Condition: Stable Critical Care Time: No Referrals: ROSANNA KYLE MD [Primary Care Provider] -
[2020-10-24 16:30] LABS: Absolute Neutrophil Ct (ANC) 4.74 (1.4-6.9); BASOPHIL % 0.5 % (0.0-0.4); Basophil (Absolute #) 0.03 (0-0.4); Eosinophil % 8.7 % (0.00-5.0); Eosinophil (Absolute #) 0.56 (0-0.5); Hematocrit 43.5 % (42-50); Hemoglobin 13.7 gm/dl (12.5-18.0); Lymphocyte (Absolute #) 0.64 (1.0-4.6); Mean Cell Volume 93.8 fl (78-100); Mean Corpuscular Hemoglobin 29.5 pg (26-32); Mean Corpuscular Hgb Concent. 31.5 g/dl (32-36); Mean Platelet Volume 13.8 fl (7.5-11.0); Monocyte (Absolute #) 0.45 (0.0-1.3); Neutrophil % 73.8 % (36.0-66.0); Platelet Count 143 K/mm3 (150-450); Red Blood Count 4.64 M/mm3 (4.1-5.6); Red Cell Distribution Width 12.8 % (11.5-14.0); White Blood Count 6.4 K/mm3 (4.0-10.5)
[2020-10-24 16:44] LABS: ALBUMIN 4.3 g/dL (3.5-5.0); ALKALINE PHOSPHATASE 148 U/L (38-126); ANION GAP 12.4 MEQ/L (5-15); BLOOD UREA NITROGEN 19 mg/dL (9-20); CHLORIDE 97 mmol/L (98-107); Calcium 9.4 mg/dL (8.4-10.2); Carbon Dioxide 28 mmol/L (22-30); Creatinine 1 0.84 mg/dL (0.66-1.25); EST GLOMERULAR FILTRATION RATE > 60.0 ML/MIN; Glucose 306 mg/dL (74-106); MAGNESIUM 2.2 mg/dL (1.6-2.3); Potassium 4.6 mmol/L (3.5-5.1); SGOT/AST 30 U/L (17-59); SGPT/ALT 24 U/L (0-50); SODIUM 133 mmol/L (137-145); Total Protein 7.2 g/dL (6.3-8.2)
--- NOTE | 2020-10-24 16:57 | XRAY ---
Indication: Dizziness for months. Multiple contiguous axial images obtained through the head without contrast. Comparison: July 08, 2019. There is again age-appropriate global atrophy, mild periventricular degenerative micro-ischemia bilaterally, and remote left thalamus/right basal ganglia lacunar infarcts. No acute intracranial hemorrhage, abnormal extra-axial fluid collection, or mass effect. Fourth ventricle is midline. Bony calvarium intact. There remains mild mucosal thickening of both ethmoid and both maxillary sinuses. Stable partial opacification inferior left mastoid air cells. Impression: 1. Continued nonacute senile brain with incidental remote bilateral lacunar infarcts as detailed. 2. Again incidental paranasal sinus disease and partial opacification left mastoid air cells.
--- NOTE | 2020-10-24 16:59 | XRAY ---
Indication: Dizziness for months. Comparison: July 08, 2019. Portable chest again demonstrates COPD with a few tiny calcified granulomas. No focal infiltrate, consolidation, or large effusion. 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 Bony thorax intact again with osteopenia, degenerative changes, and old right clavicle fracture. Impression: Continued nonacute chest with chronic features.
[2020-10-24] MEDS ORDERED: Levofloxacin 500MG/100ML D5W 500 MG/100 ML BAG IV STA (17:30)
[2020-10-24 17:39] LABS: Appearance CLEAR (CLEAR); Bilirubin NEGATIVE (NEGATIVE); Blood NEGATIVE Ery/ul (0-5); Epithelial Cells RARE /HPF (FEW); Glucose >=500 mg/dL (NEGATIVE); Ketones NEGATIVE (NEGATIVE); Leukocyte Esterase NEGATIVE (NEGATIVE); Nitrite NEGATIVE (NEGATIVE); Protein,Urine Dip NEGATIVE (Negative); RBC 0-2 /HPF (0-2); Specific Gravity 1.022 (1.005-1.025); Urobilinogen NEGATIVE mg/dL (0-1)
[2020-10-24] MEDS ORDERED: Levofloxacin 500MG/100ML D5W 500 MG/100 ML BAG IV ONE (18:15)
[2020-10-24] MEDS ORDERED: HUMALOG SQ PRN (20:26)
[2020-10-24] MEDS ORDERED: DUONEB 0.5-3 MG/3 ml Neb IH PRN (20:26)
[2020-10-24] MEDS ORDERED: TYLENOL 325 MG PO PRN (20:26)
[2020-10-24] MEDS: Neurontin 100 MG PO SCH (21:42)
[2020-10-24] MEDS: HYDROCODONE-ACETAMIN 10-325 MG PO PRN (21:42)
[2020-10-24] MEDS: Sodium Chloride 0.9% 1000 ML 1,000 ML IV SCH (21:43)
[2020-10-24] MEDS ORDERED: ZOCOR 20MG PO SCH (22:00)
[2020-10-24] MEDS ORDERED: Cozaar 50 MG PO SCH (22:00)
[2020-10-24] MEDS ORDERED: Lantus Insulin SQ SCH (22:00)
[2020-10-25 05:14] LABS: Absolute Neutrophil Ct (ANC) 3.48 (1.4-6.9); BASOPHIL % 0.4 % (0.0-0.4); Basophil (Absolute #) 0.02 (0-0.4); Eosinophil % 9.7 % (0.00-5.0); Eosinophil (Absolute #) 0.52 (0-0.5); Hematocrit 40.8 % (42-50); Hemoglobin 12.8 gm/dl (12.5-18.0); Lymphocyte (Absolute #) 0.91 (1.0-4.6); Mean Cell Volume 94.4 fl (78-100); Mean Corpuscular Hemoglobin 29.6 pg (26-32); Mean Corpuscular Hgb Concent. 31.4 g/dl (32-36); Mean Platelet Volume 13.5 fl (7.5-11.0); Monocyte (Absolute #) 0.41 (0.0-1.3); Monocytes % 7.7 % (0.0-12.0); Neutrophil % 65.2 % (36.0-66.0); Platelet Count 126 K/mm3 (150-450); Red Blood Count 4.32 M/mm3 (4.1-5.6); Red Cell Distribution Width 12.9 % (11.5-14.0); White Blood Count 5.3 K/mm3 (4.0-10.5)
[2020-10-25 05:34] LABS: ALBUMIN 3.6 g/dL (3.5-5.0); ALKALINE PHOSPHATASE 122 U/L (38-126); ANION GAP 10.7 MEQ/L (5-15); BLOOD UREA NITROGEN 18 mg/dL (9-20); CHLORIDE 105 mmol/L (98-107); Calcium 8.7 mg/dL (8.4-10.2); Carbon Dioxide 24 mmol/L (22-30); Creatinine 1 0.67 mg/dL (0.66-1.25); EST GLOMERULAR FILTRATION RATE > 60.0 ML/MIN; Glucose 168 mg/dL (74-106); Potassium 3.9 mmol/L (3.5-5.1); SGOT/AST 25 U/L (17-59); SGPT/ALT 21 U/L (0-50); SODIUM 136 mmol/L (137-145); Total Protein 6.3 g/dL (6.3-8.2)
[2020-10-25] MEDS ORDERED: MEDICATION INTERVENTION MC SCH ×2 (07:45)
[2020-10-25] MEDS: HYDROCODONE-ACETAMIN 10-325 MG PO PRN (07:59)
[2020-10-25] MEDS ORDERED: INSULIN LISPRO 18 UNIT SQ SCH (08:00)
[2020-10-25] MEDS ORDERED: HUMALOG SQ SCH ×3 (08:00→17:00)
[2020-10-25] MEDS: Sodium Chloride 0.9% 1000 ML 1,000 ML IV SCH (08:01)
[2020-10-25] MEDS ORDERED: LINAGLIPTIN PO SCH (10:00)
[2020-10-25] MEDS ORDERED: EMPAGLIFLOZIN PO SCH (10:00)
[2020-10-25] MEDS ORDERED: Ventolin Hfa MDI IH SCH (10:00)
[2020-10-25] MEDS ORDERED: PROTONIX 40 MG IV IV SCH (10:00)
[2020-10-25] MEDS ORDERED: BACIGUENT 30 GM TOP SCH (10:00)
[2020-10-25] MEDS ORDERED: Levofloxacin 500MG/100ML D5W 500 MG/100 ML BAG IV SCH (10:00)
[2020-10-25] MEDS ORDERED: PLAVIX 75 MG Tablet PO SCH (10:00)
[2020-10-25] MEDS ORDERED: BACIGUENT PACKET TP SCH (10:00)
[2020-10-25] MEDS ORDERED: BUDESONIDE 9 MG PO SCH (10:00)
[2020-10-25] MEDS ORDERED: Protonix 40MG Tablet PO SCH (10:00)
[2020-10-25] MEDS: Neurontin 100 MG PO SCH ×2 (10:54→14:31)
[2020-10-25] MEDS ORDERED: VENTOLIN COMMON CANISTER IH SCH (11:00)
[2020-10-25] MEDS ORDERED: INSULIN LISPRO 16 UNIT SQ SCH (12:00)
[2020-10-25 16:38] LABS: Hematocrit 38.5 % (42-50); Hemoglobin 12.1 gm/dl (12.5-18.0); Mean Cell Volume 94.6 fl (78-100); Mean Corpuscular Hemoglobin 29.7 pg (26-32); Mean Corpuscular Hgb Concent. 31.4 g/dl (32-36); Mean Platelet Volume 13.2 fl (7.5-11.0); Platelet Count 124 K/mm3 (150-450); Red Blood Count 4.07 M/mm3 (4.1-5.6); Red Cell Distribution Width 12.7 % (11.5-14.0); White Blood Count 5.4 K/mm3 (4.0-10.5)
[2020-10-25] MEDS ORDERED: INSULIN LISPRO 24 UNIT SQ SCH (17:00)
[2020-10-25 17:35] LABS: ALBUMIN 3.7 g/dL (3.5-5.0); ALKALINE PHOSPHATASE 130 U/L (38-126); BLOOD UREA NITROGEN 14 mg/dL (9-20); CHLORIDE 105 mmol/L (98-107); Calcium 8.6 mg/dL (8.4-10.2); Carbon Dioxide 25 mmol/L (22-30); Creatinine 1 0.81 mg/dL (0.66-1.25); EST GLOMERULAR FILTRATION RATE > 60.0 ML/MIN; Glucose 164 mg/dL (74-106); Potassium 3.7 mmol/L (3.5-5.1); SGOT/AST 32 U/L (17-59); SGPT/ALT 21 U/L (0-50); SODIUM 137 mmol/L (137-145); Total Protein 6.3 g/dL (6.3-8.2)
--- NOTE | 2020-10-25 18:51 | PCM.SSS ---
History of Present Illness - Chief Complaint Chief Complaint: ORTHOSTATIC DIZZINESS History of Present Illness: is a 65 year old male.with history of coronary artery disease status post CABG, hypertension, hyperlipidemia on Pradaxa presented in the ER with worsening dizziness for the last few weeks. Patient reports he gets dizzy immediately after getting up from a sitting position and sometimes taking a quick turn, lightheaded feeling as if he is going to pass out but did not. It lasted for few seconds to a minute and improves. It used to happen once after few months for almost a year but lately is getting more frequent episodes. Denies any associated palpitations or shortness of breath. Denies any numbness tingling or focal weakness. Does have blurry vision momentarily which improves. Denies any chest pain before or after the episodes. No nausea or vomiting. Reports good oral intake. Denies any urinary symptoms. No recent sick contact. Timing/Duration: week(s), intermittent, worse Severity: moderate - Review of Systems Constitutional: No Fever, No Chills Eyes: No Symptoms Ears, Nose, & Throat: No Symptoms Respiratory: No Cough, No Short Of Breath Cardiac: No Chest Pain, No Edema, No Syncope Abdominal/Gastrointestinal: No Abdominal Pain, No Nausea, No Vomiting, No Diarrhea Genitourinary Symptoms: No Dysuria Musculoskeletal: No Back Pain, No Neck Pain Skin: No Rash Neurological: No Dizziness, No Focal Weakness, No Sensory Changes Psychological: No Symptoms Endocrine: No Symptoms Hematologic/Lymphatic: No Symptoms Immunological/Allergic: No Symptoms Medications & Allergies Home Medications: Home Medication List Albuterol Sulfate [Albuterol Sulfate Hfa] 2 puff IH QID 10/24/20 [History Confi rmed 10/24/20] Atorvastatin Calcium [Lipitor] 20 mg PO HS 10/24/20 [History Confirmed 10/24/20] Bacitracin Packet [Baciguent Packet] 0.9 gm TP DAILY 10/24/20 [History Confirmed 10/24/20] Budesonide [Budesonide EC] 9 mg PO DAILY 10/24/20 [History Confirmed 10/24/20] Clopidogrel Bisulfate 75 mg [PLAVIX 75 MG Tablet] 75 mg PO DAILY 10/24/20 [History Confirmed 10/24/20] Empagliflozin/Linagliptin [Glyxambi 25 mg-5 mg Tablet] 1 each PO DAILY 10/24/20 [History Confirmed 10/24/20] Gabapentin 100 mg PO TID 10/24/20 [History Confirmed 10/24/20] Hydrocodone/Acetaminophen [Hydrocodone-Acetamin 10-325 mg] 1 tab PO BIDPRN PRN 10/24/20 [History Confirmed 10/24/20] Insulin Detemir [Levemir] 12 units SQ HS 10/24/20 [History Confirmed 10/24/20] Insulin Lispro [Humalog Kwikpen] 16 unit SQ LUNCH 10/24/20 [History Confirmed 10/24/20] Insulin Lispro [Humalog Kwikpen] 18 unit SQ BREAKFAST 10/24/20 [History Confirmed 10/24/20] Insulin Lispro [Humalog Kwikpen] 24 unit SQ DINNER 10/24/20 [History Confirmed 10/24/20] Losartan Potassium 25 mg PO HS 10/24/20 [History Confirmed 10/24/20] PANTOPRAZOLE 40 mg Tablet [Protonix 40MG Tablet] 40 mg PO DAILY 10/24/20 [History Confirmed 10/24/20] Allergies/Adverse Reactions: Allergies Allergy/AdvReac Type Severity Reaction Status Date / Time No Known Drug Allergies Allergy Verified 10/24/20 15:54 - Past Medical History Past Medical History: Yes Neurological History: Stroke ENT History: Other Cardiac History: Coronary Artery Disease Respiratory History: No Pertinent History Endocrine Medical History: Diabetes Type II Musculoskelatal History: Arthritis GI Medical History: Crohns Disease History: No Pertinent History Pyscho-Social History: No Pertinent History Male Reproductive Disorders: Prostate Problems Comment: retinopathy - Past Surgical History Past Surgical History: Yes Neuro Surgical History: No Pertinent History Cardiac History: CABG Respiratory Surgery: No Pertinent History GI Surgical History: No Pertinent History Genitourinary Surgical Hx: No Pertinent History Musculskeletal Surgical Hx: Orthopedic Surgery Male Surgical History: No Pertinent History - Social History Smoking Status: Former smoker How long have you smoked: years Exposure to second hand smoke: Yes Alcohol: Rarely Drug Use: none - Physical Exam Vital Signs: Vital Signs - 24 hr Temp Pulse Resp BP Pulse Ox 10/25/20 16:00 97.3 F 62 16 173/73 95 10/25/20 12:00 17 10/25/20 11:46 98.3 F 64 17 182/72 96 10/25/20 08:00 17 10/25/20 07:32 98.2 F 64 16 155/74 96 10/25/20 04:00 97.8 F 57 L 16 130/66 94 L 10/24/20 23:18 98.2 F 72 17 158/72 94 L 10/24/20 20:34 97.7 F 84 16 175/80 97 10/24/20 19:00 64 18 161/77 96 General Appearance: no apparent distress, alert Neurologic Exam: alert, oriented x 3, cooperative, normal mood/affect, nml cerebellar function, nml station & gait, sensation nml, No motor deficits Eye Exam: PERRL/EOMI, eyes nml inspection Ears, Nose, Throat Exam: normal ENT inspection, TMs normal, pharynx normal, moist mucous membranes Neck Exam: normal inspection, non-tender, supple, full range of motion Respiratory Exam: normal breath sounds, lungs clear, No respiratory distress Cardiovascular Exam: regular rate/rhythm, normal heart sounds, normal peripheral pulses Gastrointestinal/Abdomen Exam: soft, normal bowel sounds, No tenderness, No mass Back Exam: normal inspection, normal range of motion, No CVA tenderness, No vertebral tenderness Extremity Exam: normal inspection, normal range of motion, pelvis stable Skin Exam: normal color, warm, dry, No rash Lymphatic Exam: No adenopathy Results - Labs Lab/Micro Results: Lab Results-Last 24 Hours 10/24/20 10/24/20 10/24/20 Range/Units 18:56 20:42 22:08 WBC (4.0-10.5) K/mm3 RBC (4.1-5.6) M/mm3 Hgb (12.5-18.0) gm/dl Hct (42-50) % MCV (78-100) fl MCH (26-32) pg MCHC (32-36) g/dl RDW (11.5-14.0) % Plt Count (150-450) K/mm3 MPV (7.5-11.0) fl Gran % (36.0-66.0) % Eos # (Auto) (0-0.5) Absolute Lymphs (auto) (1.0-4.6) Absolute Monos (auto) (0.0-1.3) Lymphocytes % (24.0-44.0) % Monocytes % (0.0-12.0) % Eosinophils % (0.00-5.0) % Basophils % (0.0-0.4) % Absolute Granulocytes (1.4-6.9) Basophils # (0-0.4) Sodium (137-145) mmol/L Potassium (3.5-5.1) mmol/L Chloride (98-107) mmol/L Carbon Dioxide (22-30) mmol/L Anion Gap (5-15) MEQ/L BUN (9-20) mg/dL Creatinine (0.66-1.25) mg/dL Estimated GFR ML/MIN Glucose (74-106) mg/dL POC Glucometer 237 H (74 to 106) mg/dL Calcium (8.4-10.2) mg/dL Total Bilirubin (0.2-1.3) mg/dL AST (17-59) U/L ALT (0-50) U/L Alkaline Phosphatase (38-126) U/L Troponin I < 0.012 < 0.012 (0.000-0.034) ng/mL Serum Total Protein (6.3-8.2) g/dL Albumin (3.5-5.0) g/dL TSH 3rd Generation (0.47-4.68) mIU/L 10/25/20 10/25/20 10/25/20 Range/Units 01:15 04:00 04:47 WBC 5.3 (4.0-10.5) K/mm3 RBC 4.32 (4.1-5.6) M/mm3 Hgb 12.8 (12.5-18.0) gm/dl Hct 40.8 L (42-50) % MCV 94.4 (78-100) fl MCH 29.6 (26-32) pg MCHC 31.4 L (32-36) g/dl RDW 12.9 (11.5-14.0) % Plt Count 126 L (150-450) K/mm3 MPV 13.5 H (7.5-11.0) fl Gran % 65.2 (36.0-66.0) % Eos # (Auto) 0.52 H (0-0.5) Absolute Lymphs (auto) 0.91 L (1.0-4.6) Absolute Monos (auto) 0.41 (0.0-1.3) Lymphocytes % 17.0 L (24.0-44.0) % Monocytes % 7.7 (0.0-12.0) % Eosinophils % 9.7 H (0.00-5.0) % Basophils % 0.4 (0.0-0.4) % Absolute Granulocytes 3.48 (1.4-6.9) Basophils # 0.02 (0-0.4) Sodium (137-145) mmol/L Potassium (3.5-5.1) mmol/L Chloride (98-107) mmol/L Carbon Dioxide (22-30) mmol/L Anion Gap (5-15) MEQ/L BUN (9-20) mg/dL Creatinine (0.66-1.25) mg/dL Estimated GFR ML/MIN Glucose (74-106) mg/dL POC Glucometer (74 to 106) mg/dL Calcium (8.4-10.2) mg/dL Total Bilirubin (0.2-1.3) mg/dL AST (17-59) U/L ALT (0-50) U/L Alkaline Phosphatase (38-126) U/L Troponin I 0.013 0.016 (0.000-0.034) ng/mL Serum Total Protein (6.3-8.2) g/dL Albumin (3.5-5.0) g/dL TSH 3rd Generation (0.47-4.68) mIU/L 10/25/20 10/25/20 10/25/20 Range/Units 04:47 06:54 11:32 WBC (4.0-10.5) K/mm3 RBC (4.1-5.6) M/mm3 Hgb (12.5-18.0) gm/dl Hct (42-50) % MCV (78-100) fl MCH (26-32) pg MCHC (32-36) g/dl RDW (11.5-14.0) % Plt Count (150-450) K/mm3 MPV (7.5-11.0) fl Gran % (36.0-66.0) % Eos # (Auto) (0-0.5) Absolute Lymphs (auto) (1.0-4.6) Absolute Monos (auto) (0.0-1.3) Lymphocytes % (24.0-44.0) % Monocytes % (0.0-12.0) % Eosinophils % (0.00-5.0) % Basophils % (0.0-0.4) % Absolute Granulocytes (1.4-6.9) Basophils # (0-0.4) Sodium 136 L (137-145) mmol/L Potassium 3.9 (3.5-5.1) mmol/L Chloride 105 (98-107) mmol/L Carbon Dioxide 24 (22-30) mmol/L Anion Gap 10.7 (5-15) MEQ/L BUN 18 (9-20) mg/dL Creatinine 0.67 (0.66-1.25) mg/dL Estimated GFR > 60.0 ML/MIN Glucose 168 H (74-106) mg/dL POC Glucometer 140 H 91 (74 to 106) mg/dL Calcium 8.7 (8.4-10.2) mg/dL Total Bilirubin 0.40 (0.2-1.3) mg/dL AST 25 (17-59) U/L ALT 21 (0-50) U/L Alkaline Phosphatase 122 (38-126) U/L Troponin I (0.000-0.034) ng/mL Serum Total Protein 6.3 (6.3-8.2) g/dL Albumin 3.6 (3.5-5.0) g/dL TSH 3rd Generation (0.47-4.68) mIU/L 10/25/20 10/25/20 10/25/20 Range/Units 16:32 16:32 17:07 WBC 5.4 (4.0-10.5) K/mm3 RBC 4.07 L (4.1-5.6) M/mm3 Hgb 12.1 L (12.5-18.0) gm/dl Hct 38.5 L (42-50) % MCV 94.6 (78-100) fl MCH 29.7 (26-32) pg MCHC 31.4 L (32-36) g/dl RDW 12.7 (11.5-14.0) % Plt Count 124 L (150-450) K/mm3 MPV 13.2 H (7.5-11.0) fl Gran % (36.0-66.0) % Eos # (Auto) (0-0.5) Absolute Lymphs (auto) (1.0-4.6) Absolute Monos (auto) (0.0-1.3) Lymphocytes % (24.0-44.0) % Monocytes % (0.0-12.0) % Eosinophils % (0.00-5.0) % Basophils % (0.0-0.4) % Absolute Granulocytes (1.4-6.9) Basophils # (0-0.4) Sodium 137 (137-145) mmol/L Potassium 3.7 (3.5-5.1) mmol/L Chloride 105 (98-107) mmol/L Carbon Dioxide 25 (22-30) mmol/L Anion Gap 11.0 (5-15) MEQ/L BUN 14 (9-20) mg/dL Creatinine 0.81 (0.66-1.25) mg/dL Estimated GFR > 60.0 ML/MIN Glucose 164 H (74-106) mg/dL POC Glucometer 207 H (74 to 106) mg/dL Calcium 8.6 (8.4-10.2) mg/dL Total Bilirubin 0.30 (0.2-1.3) mg/dL AST 32 (17-59) U/L ALT 21 (0-50) U/L Alkaline Phosphatase 130 H (38-126) U/L Troponin I (0.000-0.034) ng/mL Serum Total Protein 6.3 (6.3-8.2) g/dL Albumin 3.7 (3.5-5.0) g/dL TSH 3rd Generation 3.200 (0.47-4.68) mIU/L Accuchecks Date 10/25/20 Date 10/25/20 Date 10/25/20 Date 10/24/20 Time 22:00 - Radiology Impressions Radiology Exams & Impressions: Radiology Procedures Category Date Time Status CHEST 1 VIEW (PORTABLE) Stat Exams 10/24/20 16:13 Completed HEAD WITHOUT CONTRAST [CT] Stat Exams 10/24/20 16:13 Completed Assessment/Plan (1) Orthostatic dizziness Current Visit: Yes Status: Acute Code(s): R42 - DIZZINESS AND GIDDINESS (2) Type 2 diabetes mellitus Current Visit: Yes Status: Acute Qualifiers: Diabetes mellitus shelter insulin use: with shelter use Diabetes mellitus complication status: with hyperglycemia Qualified Code(s): E11.65 - Type 2 diabetes mellitus with hyperglycemia; Z79.4 - supervisor intermediates (current) use of insulin (3) CAD (coronary artery disease) Current Visit: Yes Status: Chronic Qualifiers: Coronary Disease-Associated Artery/Lesion type: [place] artery [place] vs. transplanted heart: [place] heart Associated angina: without angina Qualified Code(s): I25.10 - Atherosclerotic heart disease of [place] coronary artery without angina pectoris Code(s): I25.10 - ATHSCL HEART DISEASE OF [place] CORONARY ARTERY W/O [facility] Summary - Hospital Course Hospital Course: Chief Complaint Diagnosis ORTHOSTATIC DIZZINESS Allergies Allergy/AdvReac Type Severity Reaction Status Date / Time No Known Drug Allergies Allergy Verified 10/24/20 15:54 Vital Signs (Last 24 hours) Temp Pulse Resp BP Pulse Ox 10/25/20 16:00 97.3 F 62 16 173/73 95 10/25/20 12:00 17 10/25/20 11:46 98.3 F 64 17 182/72 96 10/25/20 08:00 17 10/25/20 07:32 98.2 F 64 16 155/74 96 10/25/20 04:00 97.8 F 57 L 16 130/66 94 L 10/24/20 23:18 98.2 F 72 17 158/72 94 L 10/24/20 20:34 97.7 F 84 16 175/80 97 10/24/20 19:00 64 18 161/77 96 Home Medications Medication Instructions Recorded Confirmed Last Taken Type Albuterol Sulfate [Albuterol 2 puff IH QID 10/24/20 10/24/20 Unknown History Sulfate Hfa] Atorvastatin Calcium [Lipitor] 20 mg PO HS 10/24/20 10/24/20 10/23/20 History Bacitracin Packet [Baciguent 0.9 gm TP DAILY 10/24/20 10/24/20 10/24/20 History Packet] Budesonide [Budesonide EC] 9 mg PO DAILY 10/24/20 10/24/20 10/23/20 History Clopidogrel Bisulfate 75 mg 75 mg PO DAILY 10/24/20 10/24/20 10/24/20 History [PLAVIX 75 MG Tablet] Empagliflozin/Linagliptin 1 each PO DAILY 10/24/20 10/24/20 10/24/20 History [Glyxambi 25 mg-5 mg Tablet] Gabapentin 100 mg PO TID 10/24/20 10/24/20 10/24/20 History Hydrocodone/Acetaminophen 1 tab PO BIDPRN PRN 10/24/20 10/24/20 10/24/20 History [Hydrocodone-Acetamin 10-325 mg] Insulin Detemir [Levemir] 12 units SQ HS 10/24/20 10/24/20 10/23/20 History Insulin Lispro [Humalog Kwikpen] 16 unit SQ LUNCH 10/24/20 10/24/20 10/24/20 History Insulin Lispro [Humalog Kwikpen] 18 unit SQ BREAKFAST 10/24/20 10/24/20 10/24/20 History Insulin Lispro [Humalog Kwikpen] 24 unit SQ DINNER 10/24/20 10/24/20 10/24/20 History Losartan Potassium 25 mg PO HS 10/24/20 10/24/20 10/24/20 History PANTOPRAZOLE 40 mg Tablet 40 mg PO DAILY 10/24/20 10/24/20 10/24/20 History [Protonix 40MG Tablet] Current Medications Generic Name Dose Route Start Last Admin Trade Name Freq PRN Reason Stop Dose Admin Acetaminophen 650 mg 10/24/20 20:26 Tylenol 325 Mg PO 11/23/20 20:25 Q4H PRN PRN PAIN AND/OR FEVER Hydrocodone Bitart/Acetaminophen 1 tablet 10/24/20 21:31 10/25/20 07:59 Hydrocodone-Acetamin 10-325 Mg PO 10/29/20 21:30 1 tablet BID PRN PRN Administration PAIN Bacitracin Zinc 0 gm 10/25/20 10:00 10/25/20 10:58 Baciguent 30 Gm TOP 11/24/20 09:59 30 gm DAILY ELIZABETH Administration Clopidogrel Bisulfate 75 mg 10/25/20 10:00 10/25/20 10:54 Plavix 75 Mg Tablet PO 11/24/20 09:59 75 mg DAILY ELIZABETH Administration Gabapentin 100 mg 10/24/20 22:00 10/25/20 14:31 Neurontin 100 Mg PO 11/23/20 21:59 100 mg TID ELIZABETH Administration Sodium Chloride 1,000 mls @ 100 mls/hr 10/24/20 20:26 10/25/20 08:01 Sodium Chloride 0.9% 1000 Ml IV 11/23/20 20:25 100 mls/hr .Q10H ELIZABETH Administration Levofloxacin/Dextrose 500 mg in 100 mls @ 100 mls/hr 10/25/20 10:00 10/25/20 10:52 Levofloxacin 500mg/100ml D5w IV 11/24/20 09:59 100 mls/hr Q24H10 ELIZABETH Administration Insulin Glargine 12 unit 10/24/20 22:00 10/24/20 21:43 Lantus Insulin SQ 11/23/20 21:59 12 unit HS ELIZABETH Administration Insulin Human Lispro 0 unit 10/24/20 20:26 Humalog SQ 11/23/20 20:25 UD PRN HYPERGLYCEMIA Insulin Human Lispro 16 unit 10/25/20 12:00 10/25/20 12:48 Humalog SQ 11/24/20 11:59 16 unit LUNCH ELIZABETH Administration Insulin Human Lispro 18 unit 10/25/20 08:00 10/25/20 07:54 Humalog SQ 11/24/20 07:59 18 unit BREAKFAST ELIZABETH Administration Insulin Human Lispro 24 unit 10/25/20 17:00 Humalog SQ 11/24/20 16:59 DINNER ELIZABETH Losartan Potassium 25 mg 10/24/20 22:00 10/24/20 21:42 Cozaar 50 Mg PO 11/23/20 21:59 25 mg HS ELIZABETH Administration Miscellaneous Information 1 each 10/25/20 07:45 Medication Intervention 11/24/20 07:44 .RN TO CHECK WITH PT [facility] Miscellaneous Information 1 each 10/25/20 07:45 Medication Intervention 11/24/20 07:44 .RN TO CHECK WITH PT ELIZABETH Pantoprazole Sodium 40 mg 10/25/20 10:00 10/25/20 10:54 Protonix 40mg Tablet PO 11/24/20 09:59 40 mg DAILY ELIZABETH Administration Simvastatin 20 mg 10/24/20 22:00 10/24/20 21:42 Zocor 20mg PO 11/23/20 21:59 20 mg HS ELIZABETH Administration Discontinued Medications Generic Name Dose Route Start Last Admin Trade Name Freq PRN Reason Stop Dose Admin Albuterol Sulfate 2 puff 10/25/20 11:00 10/25/20 11:00 Ventolin Common Canister 11/24/20 10:59 Not Given QIDRT ELIZABETH Albuterol/Ipratropium 3 ml 10/24/20 20:26 Duoneb 0.5-3 Mg/3 Ml Neb 11/23/20 20:25 Q4HPRN PRN SHORTNESS OF BREATH/WHEEZING Sodium Chloride 1,000 mls @ 999 mls/hr 10/24/20 16:08 10/24/20 19:13 Sodium Chloride 0.9% 1000 Ml IV 10/24/20 17:08 Infused .Q1H1M STA Infusion Sodium Chloride Confirm 10/24/20 16:09 Sodium Chloride 0.9% 1000 Ml Administered 10/24/20 16:10 Dose 1,000 mls @ ud .ROUTE .STK-MED ONE Levofloxacin/Dextrose 500 mg in 100 mls @ 100 mls/hr 10/24/20 17:30 10/24/20 19:13 Levofloxacin 500mg/100ml D5w IV 10/24/20 18:29 Infused STAT STA Infusion Levofloxacin/Dextrose Confirm 10/24/20 18:15 Levofloxacin 500mg/100ml D5w Administered 10/24/20 18:16 Dose 500 mg in 100 mls @ ud IV .STK-MED ONE Pantoprazole Sodium 40 mg 10/25/20 10:00 Protonix 40 Mg Iv IV 11/24/20 09:59 Q24H10 ELIZABETH Intake & Output (Last 24 hours) 10/23/20 10/24/20 10/25/20 10/26/20 11:59 11:59 11:59 11:59 Intake Total 1208 600 Output Total 1375 600 Balance -167 0 Weight 56.8 kg Laboratory Results (Last 24 hours) 10/25/20 10/25/20 10/25/20 17:07 16:32 16:32 WBC 5.4 RBC 4.07 L Hgb 12.1 L Hct 38.5 L MCV 94.6 MCH 29.7 MCHC 31.4 L RDW 12.7 Plt Count 124 L MPV 13.2 H Gran % Eos # (Auto) Absolute Lymphs (auto) Absolute Monos (auto) Lymphocytes % Monocytes % Eosinophils % Basophils % Absolute Granulocytes Basophils # Sodium 137 Potassium 3.7 Chloride 105 Carbon Dioxide 25 Anion Gap 11.0 BUN 14 Creatinine 0.81 Estimated GFR > 60.0 Glucose 164 H POC Glucometer 207 H Calcium 8.6 Total Bilirubin 0.30 AST 32 ALT 21 Alkaline Phosphatase 130 H Troponin I Serum Total Protein 6.3 Albumin 3.7 TSH 3rd Generation 3.200 10/25/20 10/25/20 10/25/20 11:32 06:54 04:47 WBC RBC Hgb Hct MCV MCH MCHC RDW Plt Count MPV Gran % Eos # (Auto) Absolute Lymphs (auto) Absolute Monos (auto) Lymphocytes % Monocytes % Eosinophils % Basophils % Absolute Granulocytes Basophils # Sodium 136 L Potassium 3.9 Chloride 105 Carbon Dioxide 24 Anion Gap 10.7 BUN 18 Creatinine 0.67 Estimated GFR > 60.0 Glucose 168 H POC Glucometer 91 140 H Calcium 8.7 Total Bilirubin 0.40 AST 25 ALT 21 Alkaline Phosphatase 122 Troponin I Serum Total Protein 6.3 Albumin 3.6 TSH 3rd Generation 10/25/20 10/25/20 10/25/20 04:47 04:00 01:15 WBC 5.3 RBC 4.32 Hgb 12.8 Hct 40.8 L MCV 94.4 MCH 29.6 MCHC 31.4 L RDW 12.9 Plt Count 126 L MPV 13.5 H Gran % 65.2 Eos # (Auto) 0.52 H Absolute Lymphs (auto) 0.91 L Absolute Monos (auto) 0.41 Lymphocytes % 17.0 L Monocytes % 7.7 Eosinophils % 9.7 H Basophils % 0.4 Absolute Granulocytes 3.48 Basophils # 0.02 Sodium Potassium Chloride Carbon Dioxide Anion Gap BUN Creatinine Estimated GFR Glucose POC Glucometer Calcium Total Bilirubin AST ALT Alkaline Phosphatase Troponin I 0.016 0.013 Serum Total Protein Albumin TSH 3rd Generation 10/24/20 10/24/20 10/24/20 22:08 20:42 18:56 WBC RBC Hgb Hct MCV MCH MCHC RDW Plt Count MPV Gran % Eos # (Auto) Absolute Lymphs (auto) Absolute Monos (auto) Lymphocytes % Monocytes % Eosinophils % Basophils % Absolute Granulocytes Basophils # Sodium Potassium Chloride Carbon Dioxide Anion Gap BUN Creatinine Estimated GFR Glucose POC Glucometer 237 H Calcium Total Bilirubin AST ALT Alkaline Phosphatase Troponin I < 0.012 < 0.012 Serum Total Protein Albumin TSH 3rd Generation Orders (Last 24 hours) Category Date Time Status Bedrest ROUTINE Activity 10/24/20 20:26 Active Up With Assistance ROUTINE Activity 10/24/20 20:26 Active Code Status Order ROUTINE Care 10/24/20 20:26 Active Fall Protocol Q1H Care 10/24/20 20:26 Active IV Care Q6H Care 10/24/20 20:26 Active Neuro Checks Q4H Care 10/24/20 20:26 Active Orthostatic Vital Signs ONCE Care 10/25/20 19:00 Active POCT Glucose Check ACHS Care 10/24/20 20:[address] in Observation ROUTINE Care 10/24/20 20:26 Active Barry Chavarria, Apply ROUTINE Care 10/24/20 20:26 Active Metal Tube Cutter/Discharge Plan ROUTINE Cons 10/24/20 21:01 Active Nutritional Admission Screen ONCE Diet 10/24/20 21:01 Active CBC Urgent Lab 10/25/20 16:32 Completed CBC W DIFF AM.LAB Lab 10/25/20 04:00 Completed CMP AM.LAB Lab 10/25/20 04:47 Completed CMP Urgent Lab 10/25/20 16:32 Completed POCT GLUCOSE Stat Lab 10/24/20 20:42 Completed POCT GLUCOSE Stat Lab 10/25/20 06:54 Completed POCT GLUCOSE Stat Lab 10/25/20 11:32 Completed POCT GLUCOSE Stat Lab 10/25/20 17:07 Completed TROPONIN Q3H Lab 10/24/20 18:56 Completed TROPONIN Q3H Lab 10/24/20 22:08 Completed TROPONIN Q3H Lab 10/25/20 01:15 Completed TROPONIN Q3H Lab 10/25/20 04:47 Completed TSH, 3RD Generation Urgent Lab 10/25/20 16:32 Completed Acetaminophen 325 mg [Tylenol 325 mg] Med 10/24/20 20:26 Active 650 mg PO Q4H PRN PRN Albuterol Common Canister [Ventolin Common Canister* Med 10/25/20 11:00 Discontinued ] 2 puff IH QIDRT Albuterol/Ipratropium 3ml Neb* [DUONEB 0.5-3 MG/3 ml Med 10/24/20 20:26 Discontinued Neb] 3 ml IH Q4HPRN PRN Bacitracin Zinc [Baciguent 30 gm] Med 10/25/20 10:00 Active 0 gm TOP DAILY Clopidogrel Bisulfate 75 mg [PLAVIX 75 MG Tablet] Med 10/25/20 10:00 Active 75 mg PO DAILY Gabapentin 100 mg [Neurontin 100 MG] Med 10/24/20 22:00 Active 100 mg PO TID Hydrocodone/Acetaminophen [Hydrocodone-Acetamin 10-325 Med 10/24/20 21:31 Active mg] 1 tablet PO BID PRN PRN Insulin Glargine [Lantus Insulin] Med 10/24/20 22:00 Active 12 unit SQ HS Insulin Lispro [Humalog] Med 10/25/20 12:00 Active 16 unit SQ LUNCH Insulin Lispro [Humalog] Med 10/25/20 08:00 Active 18 unit SQ BREAKFAST Insulin Lispro [Humalog] Med 10/25/20 17:00 Active 24 unit SQ DINNER Insulin Lispro [Humalog] Med 10/24/20 20:26 Active See Dose Instructions SQ UD PRN Levofloxacin [Levofloxacin 500MG/100ML D5W] Med 10/25/20 10:00 Active 500 mg in 100 ml IV Q24H10 Levofloxacin [Levofloxacin 500MG/100ML D5W] Med 10/24/20 18:15 Discontinued 500 mg in 100 ml IV UD Losartan Potassium 50 mg [Cozaar 50 MG] Med 10/24/20 22:00 Active 25 mg PO HS Medication Intervention Med 10/25/20 07:45 Active 1 each MC .RN TO CHECK WITH PT Medication Intervention Med 10/25/20 07:45 Active 1 each MC .RN TO CHECK WITH PT NaCl 0.9% 1000 ml [Sodium Chloride 0.9% 1000 ML] 1,000 Med 10/24/20 20:26 Active ml IV 100 mls/hr PANTOPRAZOLE 40 mg Tablet [Protonix 40MG Tablet] Med 10/25/20 10:00 Active 40 mg PO DAILY Pantoprazole 40 mg [Protonix 40 mg IV] Med 10/25/20 10:00 Discontinued 40 mg IV Q24H10 Simvastatin 20Mg [Zocor 20Mg] Med 10/24/20 22:00 Active 20 mg PO HS - Vitals & Intake/Output Vital Signs: Vital Signs Temperature 97.3 F 10/25/20 16:00 Pulse Rate 62 10/25/20 16:00 Respiratory Rate 16 10/25/20 16:00 Blood Pressure 173/73 10/25/20 16:00 O2 Sat by Pulse Oximetry 95 10/25/20 16:00 Intake & Output: Intake & Output 10/23/20 10/24/20 10/25/20 10/26/20 11:59 11:59 11:59 11:59 Intake Total 1208 600 Output Total 1375 600 Balance -167 0 Weight 56.8 kg - Lab Result Diagrams: 10/25/20 16:32 10/25/20 16:32 Lab Results-Last 24 Hrs: Lab Results-Last 24 Hours 10/24/20 10/24/20 10/24/20 Range/Units 18:56 20:42 22:08 WBC (4.0-10.5) K/mm3 RBC (4.1-5.6) M/mm3 Hgb (12.5-18.0) gm/dl Hct (42-50) % MCV (78-100) fl MCH (26-32) pg MCHC (32-36) g/dl RDW (11.5-14.0) % Plt Count (150-450) K/mm3 MPV (7.5-11.0) fl Gran % (36.0-66.0) % Eos # (Auto) (0-0.5) Absolute Lymphs (auto) (1.0-4.6) Absolute Monos (auto) (0.0-1.3) Lymphocytes % (24.0-44.0) % Monocytes % (0.0-12.0) % Eosinophils % (0.00-5.0) % Basophils % (0.0-0.4) % Absolute Granulocytes (1.4-6.9) Basophils # (0-0.4) Sodium (137-145) mmol/L Potassium (3.5-5.1) mmol/L Chloride (98-107) mmol/L Carbon Dioxide (22-30) mmol/L Anion Gap (5-15) MEQ/L BUN (9-20) mg/dL Creatinine (0.66-1.25) mg/dL Estimated GFR ML/MIN Glucose (74-106) mg/dL POC Glucometer 237 H (74 to 106) mg/dL Calcium (8.4-10.2) mg/dL Total Bilirubin (0.2-1.3) mg/dL AST (17-59) U/L ALT (0-50) U/L Alkaline Phosphatase (38-126) U/L Troponin I < 0.012 < 0.012 (0.000-0.034) ng/mL Serum Total Protein (6.3-8.2) g/dL Albumin (3.5-5.0) g/dL TSH 3rd Generation (0.47-4.68) mIU/L 10/25/20 10/25/20 10/25/20 Range/Units 01:15 04:00 04:47 WBC 5.3 (4.0-10.5) K/mm3 RBC 4.32 (4.1-5.6) M/mm3 Hgb 12.8 (12.5-18.0) gm/dl Hct 40.8 L (42-50) % MCV 94.4 (78-100) fl MCH 29.6 (26-32) pg MCHC 31.4 L (32-36) g/dl RDW 12.9 (11.5-14.0) % Plt Count 126 L (150-450) K/mm3 MPV 13.5 H (7.5-11.0) fl Gran % 65.2 (36.0-66.0) % Eos # (Auto) 0.52 H (0-0.5) Absolute Lymphs (auto) 0.91 L (1.0-4.6) Absolute Monos (auto) 0.41 (0.0-1.3) Lymphocytes % 17.0 L (24.0-44.0) % Monocytes % 7.7 (0.0-12.0) % Eosinophils % 9.7 H (0.00-5.0) % Basophils % 0.4 (0.0-0.4) % Absolute Granulocytes 3.48 (1.4-6.9) Basophils # 0.02 (0-0.4) Sodium (137-145) mmol/L Potassium (3.5-5.1) mmol/L Chloride (98-107) mmol/L Carbon Dioxide (22-30) mmol/L Anion Gap (5-15) MEQ/L BUN (9-20) mg/dL Creatinine (0.66-1.25) mg/dL Estimated GFR ML/MIN Glucose (74-106) mg/dL POC Glucometer (74 to 106) mg/dL Calcium (8.4-10.2) mg/dL Total Bilirubin (0.2-1.3) mg/dL AST (17-59) U/L ALT (0-50) U/L Alkaline Phosphatase (38-126) U/L Troponin I 0.013 0.016 (0.000-0.034) ng/mL Serum Total Protein (6.3-8.2) g/dL Albumin (3.5-5.0) g/dL TSH 3rd Generation (0.47-4.68) mIU/L 10/25/20 10/25/20 10/25/20 Range/Units 04:47 06:54 11:32 WBC (4.0-10.5) K/mm3 RBC (4.1-5.6) M/mm3 Hgb (12.5-18.0) gm/dl Hct (42-50) % MCV (78-100) fl MCH (26-32) pg MCHC (32-36) g/dl RDW (11.5-14.0) % Plt Count (150-450) K/mm3 MPV (7.5-11.0) fl Gran % (36.0-66.0) % Eos # (Auto) (0-0.5) Absolute Lymphs (auto) (1.0-4.6) Absolute Monos (auto) (0.0-1.3) Lymphocytes % (24.0-44.0) % Monocytes % (0.0-12.0) % Eosinophils % (0.00-5.0) % Basophils % (0.0-0.4) % Absolute Granulocytes (1.4-6.9) Basophils # (0-0.4) Sodium 136 L (137-145) mmol/L Potassium 3.9 (3.5-5.1) mmol/L Chloride 105 (98-107) mmol/L Carbon Dioxide 24 (22-30) mmol/L Anion Gap 10.7 (5-15) MEQ/L BUN 18 (9-20) mg/dL Creatinine 0.67 (0.66-1.25) mg/dL Estimated GFR > 60.0 ML/MIN Glucose 168 H (74-106) mg/dL POC Glucometer 140 H 91 (74 to 106) mg/dL Calcium 8.7 (8.4-10.2) mg/dL Total Bilirubin 0.40 (0.2-1.3) mg/dL AST 25 (17-59) U/L ALT 21 (0-50) U/L Alkaline Phosphatase 122 (38-126) U/L Troponin I (0.000-0.034) ng/mL Serum Total Protein 6.3 (6.3-8.2) g/dL Albumin 3.6 (3.5-5.0) g/dL TSH 3rd Generation (0.47-4.68) mIU/L 10/25/20 10/25/20 10/25/20 Range/Units 16:32 16:32 17:07 WBC 5.4 (4.0-10.5) K/mm3 RBC 4.07 L (4.1-5.6) M/mm3 Hgb 12.1 L (12.5-18.0) gm/dl Hct 38.5 L (42-50) % MCV 94.6 (78-100) fl MCH 29.7 (26-32) pg MCHC 31.4 L (32-36) g/dl RDW 12.7 (11.5-14.0) % Plt Count 124 L (150-450) K/mm3 MPV 13.2 H (7.5-11.0) fl Gran % (36.0-66.0) % Eos # (Auto) (0-0.5) Absolute Lymphs (auto) (1.0-4.6) Absolute Monos (auto) (0.0-1.3) Lymphocytes % (24.0-44.0) % Monocytes % (0.0-12.0) % Eosinophils % (0.00-5.0) % Basophils % (0.0-0.4) % Absolute Granulocytes (1.4-6.9) Basophils # (0-0.4) Sodium 137 (137-145) mmol/L Potassium 3.7 (3.5-5.1) mmol/L Chloride 105 (98-107) mmol/L Carbon Dioxide 25 (22-30) mmol/L Anion Gap 11.0 (5-15) MEQ/L BUN 14 (9-20) mg/dL Creatinine 0.81 (0.66-1.25) mg/dL Estimated GFR > 60.0 ML/MIN Glucose 164 H (74-106) mg/dL POC Glucometer 207 H (74 to 106) mg/dL Calcium 8.6 (8.4-10.2) mg/dL Total Bilirubin 0.30 (0.2-1.3) mg/dL AST 32 (17-59) U/L ALT 21 (0-50) U/L Alkaline Phosphatase 130 H (38-126) U/L Troponin I (0.000-0.034) ng/mL Serum Total Protein 6.3 (6.3-8.2) g/dL Albumin 3.7 (3.5-5.0) g/dL TSH 3rd Generation 3.200 (0.47-4.68) mIU/L Micro Results-Entire Visit: Accuchecks Date 10/25/20 Date 10/25/20 Date 10/25/20 Date 10/24/20 Time 22:00 - Radiology Exams Ordered Rad Exams-Entire Visit: Radiology Procedures Category Date Time Status CHEST 1 VIEW (PORTABLE) Stat Exams 10/24/20 16:13 Completed HEAD WITHOUT CONTRAST [CT] Stat Exams 10/24/20 16:13 Completed - Discharge Discharge Date: 10/25/20 Disposition: Home, Self-Care Condition: Stable Prescriptions: No Action Budesonide [Budesonide EC] 9 mg PO DAILY Losartan Potassium 25 mg PO HS Hydrocodone/Acetaminophen [Hydrocodone-Acetamin 10-325 mg] 1 tab PO BIDPRN PRN PRN Reason: Pain PANTOPRAZOLE 40 mg Tablet [Protonix 40MG Tablet] 40 mg PO DAILY Insulin Detemir [Levemir] 12 units SQ HS Gabapentin 100 mg PO TID Insulin Lispro [Humalog Kwikpen] 16 unit SQ LUNCH Insulin Lispro [Humalog Kwikpen] 18 unit SQ BREAKFAST Bacitracin Packet [Baciguent Packet] 0.9 gm TP DAILY Atorvastatin Calcium [Lipitor] 20 mg PO HS Clopidogrel Bisulfate 75 mg [PLAVIX 75 MG Tablet] 75 mg PO DAILY Empagliflozin/Linagliptin [Glyxambi 25 mg-5 mg Tablet] 1 each PO DAILY Albuterol Sulfate [Albuterol Sulfate Hfa] 2 puff IH QID Insulin Lispro [Humalog Kwikpen] 24 unit SQ DINNER Follow up with: ROSANNA KYLE MD [Primary Care Provider] - 7 Days
[2020-10-25 19:57] VITALS: O2SAT 97
[2020-10-25 19:58] VITALS: BP 149/67; PULSE 63
== END 2020-10-25 20:20 | disposition home or self-care (01) ==
LOC: ED 15:38 → MED SURG 20:22
PROVIDERS: ADMIT General Practice; ATTEND General Practice
DX: R42 Dizziness and giddiness (principal); I10 Essential (primary) hypertension; E11.65 Type 2 diabetes mellitus with hyperglycemia; E78.5 Hyperlipidemia, unspecified; I25.10 Atherosclerotic heart disease of native coronary artery without angina pectoris; Z95.1 Presence of aortocoronary bypass graft; Z79.899 Other long term (current) drug therapy; Z79.01 Long term (current) use of anticoagulants; Z79.4 Long term (current) use of insulin; Z20.828 Contact with and (suspected) exposure to other viral communicable diseases
CPT/HCPCS: 36000; 36415; 70450; 71045; 80053; 81001; 82947; 83605; 83735; 84443; 84484; 85025; 85027; 93005; 93041; 93268; 96360; 96365; 99285; G0378; U0003; J1817; J1956; A9270-GY

== ENCOUNTER 2021-09-16 17:20 | Observation (INO) | payer MEDICARE ==
[2021-09-16] MEDS ORDERED: D50W 50 ml Abboject IV ONE (17:38)
[2021-09-16] MEDS ORDERED: Sodium Chloride 0.9% 1000 ML 1,000 ML ONE (17:38)
[2021-09-16] MEDS ORDERED: D50W 50ML Vial IV ONE (17:45)
[2021-09-16] MEDS: Sodium Chloride 0.9% 1000 ML 1,000 ML IV SCH (17:47)
[2021-09-16 17:52] LABS: Basophil (Absolute #) 0.06 (0-0.4); Eosinophil % 5.9 % (0.00-5.0); Eosinophil (Absolute #) 0.44 (0-0.5); Hemoglobin 12.5 gm/dl (12.5-18.0); Lymphocyte (Absolute #) 0.96 (1.0-4.6); Lymphocytes % 12.8 % (24.0-44.0); Mean Cell Volume 94.1 fl (78-100); Mean Corpuscular Hemoglobin 30.9 pg (26-32); Mean Corpuscular Hgb Concent. 32.9 g/dl (32-36); Mean Platelet Volume 12.3 fl (7.5-11.0); Monocyte (Absolute #) 0.62 (0.0-1.3); Monocytes % 8.3 % (0.0-12.0); Neutrophil % 72.2 % (36.0-66.0); Platelet Count 190 K/mm3 (150-450); Red Blood Count 4.04 M/mm3 (4.1-5.6); White Blood Count 7.5 K/mm3 (4.0-10.5)
[2021-09-16 17:59] LABS: INR 1.21 (0.8-3.0); PROTIME 14.3 SECONDS (9.4-12.5)
[2021-09-16 18:02] LABS: PTT 47.6 SECONDS (25.1-36.5)
[2021-09-16] MEDS: DEXTROSE 10% 250 ML 250 ML IV SCH (18:02)
[2021-09-16 18:18] LABS: ALBUMIN 3.8 g/dL (3.5-5.0); ALKALINE PHOSPHATASE 148 U/L (38-126); ANION GAP 12.2 MEQ/L (5-15); BLOOD UREA NITROGEN 20 mg/dL (9-20); CHLORIDE 100 mmol/L (98-107); Calcium 9.2 mg/dL (8.4-10.2); Carbon Dioxide 27 mmol/L (22-30); Creatinine 1 1.04 mg/dL (0.66-1.25); EST GLOMERULAR FILTRATION RATE > 60.0 ML/MIN; Glucose 55 mg/dL (74-106); SGOT/AST 24 U/L (17-59); SGPT/ALT 18 U/L (0-50); SODIUM 135 mmol/L (137-145); Total Protein 6.4 g/dL (6.3-8.2)
--- NOTE | 2021-09-16 18:21 | ERPHSYRPT ---
- History of Present Illness Time Seen by Provider: 09/16/21 17:26 Source: patient, family Exam Limitations: clinical condition Patient Subjective Stated Complaint: low bs Triage Nursing Assessment: pt here for altered mental status. pt daughter states that the pt was at a wedding and that the pt started acting "different", he became wobbly and she checked his BS and it was 53 and she gave him sprite and peanut butter crackers and a juice pouch and BS came up now to 93. however pt remained altered, pt is unable to complete sentences and is delayed in response to questions. pt PERRLA, no arm drift, facial drooping noted. pt is alert but is not oriented. pt speaking in word salad pattern. Physician History: 66 years old male with history of insulin-dependent diabetes mellitus, hypertension, hyperlipidemia, previous history of CVA without any residual weakness, coronary artery disease status post CABG presented in the ER with almost 1-1/2-hour ago when family noticed that their wedding libertarian that patient was not acting himself. They checked his blood sugar it was in upper 40s/low 50s. He was given peanut butter and blood sugar improved to 94 and on presentation to ER again it dropped down to 53. Patient per report was mumbling and was confused and he is given half ampule of D50 and blood sugar improved to 168 and patient is more awake alert and feeling better. Denies any chest pain palpitations or shortness of breath. Complaining of generalized weakness and no focal weakness. Not moving all 4 extremities. Timing/Duration: today, sudden Character of Deficits: impaired speech Deficits: no difficulties Baseline/Normal Cognition: alert oriented x 3 Current Cognition: alert oriented x 3 Baseline Gait: walks w/o assistance Associated Symptoms: fatigue, weakness, slurred speech Allergies/Adverse Reactions: No Known Drug Allergies Allergy (Verified 09/16/21 20:15) Home Medications: Albuterol Sulfate [Albuterol Sulfate Hfa] 2 puff IH QID 10/24/20 [History] Budesonide [Budesonide Dr] 3 mg PO DAILY 10/24/20 [History] Clopidogrel Bisulfate 75 mg [PLAVIX 75 MG Tablet] 75 mg PO DAILY 10/24/20 [History] Hydrocodone/Acetaminophen [Hydrocodone-Acetamin 10-325 mg] 10 tab PO BIDPRN PRN 10/24/20 [History] Insulin Detemir [Levemir] 11 units SQ HS 10/24/20 [History] Losartan Potassium 25 mg PO DAILY 10/24/20 [History] PANTOPRAZOLE 40 mg Tablet [Protonix 40MG Tablet] 40 mg PO DAILY 10/24/20 [History] Dabigatran Etexilate Mesylate [Pradaxa] 75 mg PO DAILY 09/16/21 [History] Dronedarone Hydrochloride 400* [Multaq 400 MG] 200 mg PO BID 09/16/21 [His tory] Insulin Aspart (Niacinamide) [Fiasp 100 Unit/ml Vial] 18 unit SQ BREAKFAST 09/16/21 [History] Insulin Aspart (Niacinamide) [Fiasp 100 Unit/ml Vial] 18 units SQ DAILY 09/16/21 [History] Insulin Aspart (Niacinamide) [Fiasp 100 Unit/ml Vial] 21 units SQ EVENING MEAL 09/16/21 [History] Hx Tetanus, Diphtheria Vaccination/Date Given: No (unknown) Hx Influenza Vaccination/Date Given: Yes Hx Pneumococcal Vaccination/Date Given: No Immunizations Up to Date: Yes Travel Risk - International Travel Have you traveled outside of the country in past 3 weeks: No - Coronavirus Screening Are you exhibiting any of the following symptoms?: No Close contact with a COVID-19 positive Pt in past 14-21 Days: No - Vaccine Status Have you recieved a Covid-19 vaccination: Yes Screw Remover: Yamli - Vaccination Dates Date of 2cond Vaccination (if applicable): 2019 Comment: plus boosters - Review of Systems Constitutional: Fatigue, Weakness Eyes: No Symptoms Ears, Nose, & Throat: No Symptoms Respiratory: No Symptoms Cardiac: No Symptoms Abdominal/Gastrointestinal: No Symptoms Genitourinary Symptoms: No Symptoms Musculoskeletal: No Symptoms Skin: No Symptoms Neurological: Lethargy Psychological: No Symptoms Endocrine: No Symptoms Hematologic/Lymphatic: No Symptoms Immunological/Allergic: No Symptoms - Past Medical History Pertinent Past Medical History: Yes Neurological History: Stroke ENT History: Other Cardiac History: Coronary Artery Disease Respiratory History: No Pertinent History Endocrine Medical History: Diabetes Type II Musculoskeletal History: Arthritis GI Medical History: Crohns Disease History: No Pertinent History Psycho-Social History: No Pertinent History Male Reproductive Disorders: Prostate Problems Other Medical History: retinopathy - Past Surgical History Past Surgical History: Yes Neuro Surgical History: No Pertinent History Cardiac: CABG Respiratory: No Pertinent History Gastrointestinal: No Pertinent History Genitourinary: No Pertinent History Musculoskeletal: Orthopedic Surgery Male Surgical History: No Pertinent History - Social History Smoking Status: Current every day smoker How long have you smoked: years Exposure to second hand smoke: Yes Drug Use: none Patient Lives Alone: Yes - Nursing Vital Signs Nursing Vital Signs: Initial Vital Signs Temperature 96.7 F 09/16/21 17:23 Pulse Rate 64 09/16/21 17:23 Respiratory Rate 18 09/16/21 17:23 Blood Pressure 120/62 09/16/21 17:23 O2 Sat by Pulse Oximetry 97 09/16/21 17:23 Pain Scale Pain Intensity 0 - Clif[place] Coma Scale Best Eye Response (Clifton): (4) open spontaneously Best Verbal Response (Clifton): (5) oriented Best Motor Response (Ciarra): (6) obeys commands Ciarra Total: 15 - Physical Exam General Appearance: no apparent distress, alert Eye Exam: bilateral eye: normal inspection, PERRL, EOMI Ears, Nose, Throat Exam: normal ENT inspection, TMs normal, pharynx normal, moist mucous membranes Neck Exam: normal inspection, non-tender, supple, full range of motion, No meningismus Respiratory: normal breath sounds, lungs clear Cardiovascular: regular rate/rhythm, normal heart sounds Gastrointestinal: soft, normal bowel sounds, No tenderness Back Exam: normal inspection, normal range of motion Extremity Exam: normal inspection, normal range of motion Mental Status: alert, oriented x 3, 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 Exam: normal hearing, normal speech, PERRL Coordination/Gait: normal finger to nose Motor/Sensory: no motor deficit, no sensory deficit, no pronator drift, negative Babinski's sign DTR: bicep (R): 2+, bicep (L): 2+, knee (R): 2+, knee (L): 2+ Skin Exam: normal color SpO2 Interpretation: normal SpO2: 97 O2 Delivery: Room Air - Course EKG Interpreted by Me: RATE (62), Sinus Rhythm, NORMAL AXIS, NORMAL INTERVALS, Right Bundle Branch Block, Non-specific ST Changes Ordered Tests: Active Orders 24 hr Category Date Time Status Bedrest ROUTINE Activity 09/16/21 20:02 Active Up With Assistance ROUTINE Activity 09/16/21 20:02 Active Code Status Order ROUTINE Care 09/16/21 20:02 Active EKG-ER Only STAT Care 09/16/21 17:34 Completed Fall Protocol Q1H Care 09/16/21 20:02 Active IV Care Q6H Care 09/16/21 20:02 Active IV Insertion STAT Care 09/16/21 17:34 Completed NPO (ED) STAT Care 09/16/21 17:34 Completed Neuro Checks Q1H Care 09/16/21 20:02 Active POCT Glucose Check ACHS Care 09/16/21 20:02 Active POCT Glucose Check STAT Care 09/16/21 17:48 Completed Barry Chavarria, Edwige ROUTINE Care 09/16/21 20:02 Active Weight,Daily 0600 Care 09/16/21 20:02 Active Consistent Carbohydrate Diet 1800 Calorie Diet 09/16/21 Breakfast Active CHEST 1 VIEW (PORTABLE) Stat Exams 09/16/21 17:34 Completed HEAD WITHOUT CONTRAST [CT] Stat Exams 09/16/21 17:21 Completed BLOOD CULTURE Stat Lab 09/16/21 18:31 Received BNP [NT PRO BNP] Stat Lab 09/16/21 18:31 Completed CBC W DIFF AM.LAB Lab 09/17/21 04:00 Ordered CBC W DIFF Stat Lab 09/16/21 17:49 Completed CMP AM.LAB Lab 09/17/21 04:00 Ordered CMP Stat Lab 09/16/21 17:49 Completed LIPASE Stat Lab 09/16/21 18:31 Completed Lactic Acid Stat Lab 09/16/21 18:20 Completed MAG [MAGNESIUM] Stat Lab 09/16/21 18:31 Completed POCT GLUCOSE Stat Lab 09/16/21 17:37 Completed POCT GLUCOSE Stat Lab 09/16/21 17:43 Completed POCT GLUCOSE Stat Lab 09/16/21 17:58 Completed POCT GLUCOSE Stat Lab 09/16/21 19:17 Completed PROTIME WITH INR Stat Lab 09/16/21 17:49 Completed PTT Stat Lab 09/16/21 17:49 Completed TROPONIN Q3H Lab 09/16/21 17:49 Completed TROPONIN Q3H Lab 09/16/21 21:26 Completed TROPONIN Q3H Lab 09/16/21 23:45 Ordered TROPONIN Q3H Lab 09/17/21 02:45 Ordered UA W/RFX CULTURE Stat Lab 09/16/21 Ordered Transfer Order Routine Transfer 09/16/21 Completed Medication Summary Generic Name Dose Route Start Last Admin Trade Name Freq PRN Reason Stop Dose Admin Albuterol/Ipratropium 3 ml 09/16/21 20:02 Ipratropium/Albuterol Sulfate 3 Ml Ampul.Neb IH 10/16/21 20:01 Q4HPRN PRN SHORTNESS OF BREATH/WHEEZING Enoxaparin Sodium 40 mg 09/17/21 10:00 Enoxaparin Sodium 40 Mg/0.4 Ml Syringe SQ 10/17/21 09:59 DAILY ELIZABETH Sodium Chloride 1,000 mls @ 100 mls/hr 09/16/21 17:45 09/16/21 17:47 Sodium Chloride 0.9% 1000 Ml IV 10/16/21 17:44 100 mls/hr .Q10H ELIZABETH Administration Dextrose 250 mls @ 30 mls/hr 09/16/21 18:00 09/16/21 19:25 Dextrose 10% 250 Ml IV 10/16/21 17:59 15 mls/hr .Q8H20M ELIZABETH Infusion Insulin Human Lispro 0 unit 09/16/21 20:02 Insulin Lispro 1 Unit SQ 10/16/21 20:01 UD PRN HYPERGLYCEMIA Pantoprazole Sodium 40 mg 09/17/21 10:00 Pantoprazole 40 Mg Vial IV 10/17/21 09:59 Q24H10 ELIZABETH Discontinued Medications Generic Name Dose Route Start Last Admin Trade Name Daphne PRN Reason Stop Dose Admin Dextrose Confirm 09/16/21 17:38 Dextrose 50%-Water 50 Ml Abboject Administered 09/16/21 17:39 Dose 50 ml IV .STK-MED ONE Dextrose 25 ml 09/16/21 17:45 09/16/21 17:40 Dextrose 50%-Water 50 Ml Vial IV 09/16/21 17:46 25 ml STAT ONE Administration Sodium Chloride Confirm 09/16/21 17:38 Sodium Chloride 0.9% 1000 Ml Administered 09/16/21 17:39 Dose 1,000 mls @ ud .ROUTE .STK-MED ONE Lab/Rad Data: Laboratory Result Diagrams 09/16/21 17:49 09/16/21 17:49 Laboratory Results 09/16/21 09/16/21 09/16/21 Range/Units 19:17 19:16 18:31 WBC (4.0-10.5) K/mm3 RBC (4.1-5.6) M/mm3 Hgb (12.5-18.0) gm/dl Hct (42-50) % MCV (78-100) fl MCH (26-32) pg MCHC (32-36) g/dl RDW (11.5-14.0) % Plt Count (150-450) K/mm3 MPV (7.5-11.0) fl Gran % (36.0-66.0) % Eos # (Auto) (0-0.5) Absolute Lymphs (auto) (1.0-4.6) Absolute Monos (auto) (0.0-1.3) Lymphocytes % (24.0-44.0) % Monocytes % (0.0-12.0) % Eosinophils % (0.00-5.0) % Basophils % (0.0-0.4) % Absolute Granulocytes (1.4-6.9) Basophils # (0-0.4) PT (9.4-12.5) SECONDS INR (0.8-3.0) APTT (25.1-36.5) SECONDS Sodium (137-145) mmol/L Potassium (3.5-5.1) mmol/L Chloride (98-107) mmol/L Carbon Dioxide (22-30) mmol/L Anion Gap (5-15) MEQ/L BUN (9-20) mg/dL Creatinine (0.66-1.25) mg/dL Estimated GFR ML/MIN Glucose (74-106) mg/dL POC Glucometer 183 H (74 to 106) mg/dL Lactic Acid (0.4-2.0) Calcium (8.4-10.2) mg/dL Magnesium 2.3 (1.6-2.3) mg/dL Total Bilirubin (0.2-1.3) mg/dL AST (17-59) U/L ALT (0-50) U/L Alkaline Phosphatase (38-126) U/L Troponin I (0.000-0.034) ng/mL NT-Pro-B Natriuret Pep 202 (0-900) pg/mL Serum Total Protein (6.3-8.2) g/dL Albumin (3.5-5.0) g/dL Lipase (23-300) U/L Influenza Type A Ag NEGATIVE (NEGATIVE) Influenza Type B Ag NEGATIVE (NEGATIVE) RSV (PCR) NEGATIVE (Negative) SARS-CoV-2 (PCR) NEGATIVE (NEGATIVE) 09/16/21 09/16/21 09/16/21 Range/Units 18:31 18:20 17:58 WBC (4.0-10.5) K/mm3 RBC (4.1-5.6) M/mm3 Hgb (12.5-18.0) gm/dl Hct (42-50) % MCV (78-100) fl MCH (26-32) pg MCHC (32-36) g/dl RDW (11.5-14.0) % Plt Count (150-450) K/mm3 MPV (7.5-11.0) fl Gran % (36.0-66.0) % Eos # (Auto) (0-0.5) Absolute Lymphs (auto) (1.0-4.6) Absolute Monos (auto) (0.0-1.3) Lymphocytes % (24.0-44.0) % Monocytes % (0.0-12.0) % Eosinophils % (0.00-5.0) % Basophils % (0.0-0.4) % Absolute Granulocytes (1.4-6.9) Basophils # (0-0.4) PT (9.4-12.5) SECONDS INR (0.8-3.0) APTT (25.1-36.5) SECONDS Sodium (137-145) mmol/L Potassium (3.5-5.1) mmol/L Chloride (98-107) mmol/L Carbon Dioxide (22-30) mmol/L Anion Gap (5-15) MEQ/L BUN (9-20) mg/dL Creatinine (0.66-1.25) mg/dL Estimated GFR ML/MIN Glucose (74-106) mg/dL POC Glucometer 122 H (74 to 106) mg/dL Lactic Acid 1.6 (0.4-2.0) Calcium (8.4-10.2) mg/dL Magnesium (1.6-2.3) mg/dL Total Bilirubin (0.2-1.3) mg/dL AST (17-59) U/L ALT (0-50) U/L Alkaline Phosphatase (38-126) U/L Troponin I (0.000-0.034) ng/mL NT-Pro-B Natriuret Pep (0-900) pg/mL Serum Total Protein (6.3-8.2) g/dL Albumin (3.5-5.0) g/dL Lipase 16 L (23-300) U/L Influenza Type A Ag (NEGATIVE) Influenza Type B Ag (NEGATIVE) RSV (PCR) (Negative) SARS-CoV-2 (PCR) (NEGATIVE) 09/16/21 09/16/21 09/16/21 Range/Units 17:49 17:49 17:49 WBC (4.0-10.5) K/mm3 RBC (4.1-5.6) M/mm3 Hgb (12.5-18.0) gm/dl Hct (42-50) % MCV (78-100) fl MCH (26-32) pg MCHC (32-36) g/dl RDW (11.5-14.0) % Plt Count (150-450) K/mm3 MPV (7.5-11.0) fl Gran % (36.0-66.0) % Eos # (Auto) (0-0.5) Absolute Lymphs (auto) (1.0-4.6) Absolute Monos (auto) (0.0-1.3) Lymphocytes % (24.0-44.0) % Monocytes % (0.0-12.0) % Eosinophils % (0.00-5.0) % Basophils % (0.0-0.4) % Absolute Granulocytes (1.4-6.9) Basophils # (0-0.4) PT 14.3 H (9.4-12.5) SECONDS INR 1.21 (0.8-3.0) APTT 47.6 H (25.1-36.5) SECONDS Sodium 135 L (137-145) mmol/L Potassium 4.0 (3.5-5.1) mmol/L Chloride 100 (98-107) mmol/L Carbon Dioxide 27 (22-30) mmol/L Anion Gap 12.2 (5-15) MEQ/L BUN 20 (9-20) mg/dL Creatinine 1.04 (0.66-1.25) mg/dL Estimated GFR > 60.0 ML/MIN Glucose 55 L (74-106) mg/dL POC Glucometer (74 to 106) mg/dL Lactic Acid (0.4-2.0) Calcium 9.2 (8.4-10.2) mg/dL Magnesium (1.6-2.3) mg/dL Total Bilirubin 0.70 (0.2-1.3) mg/dL AST 24 (17-59) U/L ALT 18 (0-50) U/L Alkaline Phosphatase 148 H (38-126) U/L Troponin I < 0.012 (0.000-0.034) ng/mL NT-Pro-B Natriuret Pep (0-900) pg/mL Serum Total Protein 6.4 (6.3-8.2) g/dL Albumin 3.8 (3.5-5.0) g/dL Lipase (23-300) U/L Influenza Type A Ag (NEGATIVE) Influenza Type B Ag (NEGATIVE) RSV (PCR) (Negative) SARS-CoV-2 (PCR) (NEGATIVE) 09/16/21 09/16/21 09/16/21 Range/Units 17:49 17:43 17:37 WBC 7.5 (4.0-10.5) K/mm3 RBC 4.04 L (4.1-5.6) M/mm3 Hgb 12.5 (12.5-18.0) gm/dl Hct 38.0 L (42-50) % MCV 94.1 (78-100) fl MCH 30.9 (26-32) pg MCHC 32.9 (32-36) g/dl RDW 13.0 (11.5-14.0) % Plt Count 190 (150-450) K/mm3 MPV 12.3 H (7.5-11.0) fl Gran % 72.2 H (36.0-66.0) % Eos # (Auto) 0.44 (0-0.5) Absolute Lymphs (auto) 0.96 L (1.0-4.6) Absolute Monos (auto) 0.62 (0.0-1.3) Lymphocytes % 12.8 L (24.0-44.0) % Monocytes % 8.3 (0.0-12.0) % Eosinophils % 5.9 H (0.00-5.0) % Basophils % 0.8 (0.0-0.4) % Absolute Granulocytes 5.40 (1.4-6.9) Basophils # 0.06 (0-0.4) PT (9.4-12.5) SECONDS INR (0.8-3.0) APTT (25.1-36.5) SECONDS Sodium (137-145) mmol/L Potassium (3.5-5.1) mmol/L Chloride (98-107) mmol/L Carbon Dioxide (22-30) mmol/L Anion Gap (5-15) MEQ/L BUN (9-20) mg/dL Creatinine (0.66-1.25) mg/dL Estimated GFR ML/MIN Glucose (74-106) mg/dL POC Glucometer 168 H 53 L (74 to 106) mg/dL Lactic Acid (0.4-2.0) Calcium (8.4-10.2) mg/dL Magnesium (1.6-2.3) mg/dL Total Bilirubin (0.2-1.3) mg/dL AST (17-59) U/L ALT (0-50) U/L Alkaline Phosphatase (38-126) U/L Troponin I (0.000-0.034) ng/mL NT-Pro-B Natriuret Pep (0-900) pg/mL Serum Total Protein (6.3-8.2) g/dL Albumin (3.5-5.0) g/dL Lipase (23-300) U/L Influenza Type A Ag (NEGATIVE) Influenza Type B Ag (NEGATIVE) RSV (PCR) (Negative) SARS-CoV-2 (PCR) (NEGATIVE) - Progress Progress: improved, re-examined Progress Note: 09/16/21 19:20 Patient was confused and hypoglycemic on presentation and blood sugar dropped again to 53. He is given half ampule of D50 and recheck is 168 and dropped again quickly to 120s. Started on daily 10 at a rate of 30 mL/h. CT head negative for any acute findings. Patient is improved and feeling much better. No obvious focal neurodeficit on reevaluation as well. Per family patient is at his baseline now. Work-up is grossly negative. I believe his altered mental status is secondary to hypoglycemia and is not secondary to neurologic event. Discussed with Dr. Fletcher and patient is admitted. Discussed with .: Yaya Will see patient in: hospital (observation) Counseled pt/family regarding: lab results, diagnosis, need for follow-up, rad results - Departure Departure Disposition: Observation Clinical Impression: Altered mental status, Hypoglycemia Condition: Stable Critical Care Time: Yes Critical Care Time(excluding separately billable procedures): Critical 30-74 mins
[2021-09-16 18:57] LABS: MAGNESIUM 2.3 mg/dL (1.6-2.3)
[2021-09-16 19:53] LABS: INFLUENZA A NEGATIVE (NEGATIVE); INFLUENZA B NEGATIVE (NEGATIVE); RESPIRATORY SYNCTIAL VIRUS NEGATIVE (Negative); SARS-CoV-2 Xpert Express NEGATIVE (NEGATIVE)
[2021-09-16] MEDS ORDERED: HUMALOG SQ PRN (20:02)
[2021-09-16] MEDS ORDERED: DUONEB 0.5-3 MG/3 ml Neb IH PRN (20:02)
--- NOTE | 2021-09-16 21:10 | XRAY ---
Indication: Acute mental status change. Stroke. Multiple contiguous axial images obtained through the head without contrast. Comparison: October 24, 2020 Again age-appropriate global atrophy, mild periventricular degenerative micro-ischemia, and remote lacunar infarcts left thalamus/right basal ganglia. No acute intracranial hemorrhage, abnormal extra-axial fluid collection, or mass effect. Fourth ventricle is midline. Bony calvarium intact. Mild mucosal thickening both maxillary sinuses, left greater than right. Mastoid air cells are clear. Impression: Continued nonacute senile brain with incidental remote lacunar infarcts and paranasal sinuses disease. Comment: Preliminary interpretation made by C. No critical discrepancy.
--- NOTE | 2021-09-16 21:12 | XRAY ---
Indication: Acute mental status change. Stroke. Comparison: October 24, 2020. Portable chest less inflated again demonstrating COPD with a few tiny calcified granulomas. Heart not enlarged again with CABG. Bony thorax intact with osteopenia, degenerative changes, and old right clavicle fracture. No new/acute findings.
[2021-09-17] MEDS: Sodium Chloride 0.9% 1000 ML 1,000 ML IV SCH (02:43)
[2021-09-17 02:49] LABS: Hyaline Casts 0-2 /LPF (0-2); Sperm PRESENT /HPF (NEGATIVE)
[2021-09-17 02:50] LABS: Appearance CLEAR (CLEAR); Bilirubin NEGATIVE (NEGATIVE); Dipstick done @ ? MAIN LAB; Glucose 250 mg/dL (NEGATIVE); Ketones NEGATIVE (NEGATIVE); Nitrite NEGATIVE (NEGATIVE); Ph 5.5 (5-6); Protein,Urine Dip NEGATIVE (Negative); RBC TRACE-INTACT Ery/ul (0-5); Specific Gravity 1.015 (1.005-1.025); Urobilinogen 0.2 mg/dL (0-1)
[2021-09-17 02:51] LABS: Bacteria NONE SEEN /HPF (NEGATIVE); Urine Cultured Indicated? NO
[2021-09-17] MEDS: DEXTROSE 10% 250 ML 250 ML IV SCH (05:45)
[2021-09-17 06:20] LABS: Absolute Neutrophil Ct (ANC) 4.17 (1.4-6.9); Basophil (Absolute #) 0.03 (0-0.4); Eosinophil % 7.5 % (0.00-5.0); Eosinophil (Absolute #) 0.44 (0-0.5); Hematocrit 42.2 % (42-50); Hemoglobin 13.7 gm/dl (12.5-18.0); Lymphocyte (Absolute #) 0.79 (1.0-4.6); Lymphocytes % 13.5 % (24.0-44.0); Mean Cell Volume 94.4 fl (78-100); Mean Corpuscular Hemoglobin 30.6 pg (26-32); Mean Corpuscular Hgb Concent. 32.5 g/dl (32-36); Monocyte (Absolute #) 0.44 (0.0-1.3); Monocytes % 7.5 % (0.0-12.0); Platelet Count 179 K/mm3 (150-450); Red Blood Count 4.47 M/mm3 (4.1-5.6); Red Cell Distribution Width 13.1 % (11.5-14.0); White Blood Count 5.9 K/mm3 (4.0-10.5)
[2021-09-17 06:25] LABS: ALKALINE PHOSPHATASE 171 U/L (38-126); BLOOD UREA NITROGEN 14 mg/dL (9-20); CHLORIDE 103 mmol/L (98-107); Calcium 9.1 mg/dL (8.4-10.2); Carbon Dioxide 24 mmol/L (22-30); Creatinine 1 0.91 mg/dL (0.66-1.25); EST GLOMERULAR FILTRATION RATE > 60.0 ML/MIN; Glucose 283 mg/dL (74-106); Potassium 4.6 mmol/L (3.5-5.1); SGOT/AST 24 U/L (17-59); SGPT/ALT 18 U/L (0-50); SODIUM 135 mmol/L (137-145); Total Protein 7.2 g/dL (6.3-8.2)
[2021-09-17 07:55] VITALS: O2SAT 93
[2021-09-17] MEDS ORDERED: HYDROCODONE-ACETAMIN 10-325 MG PO PRN (09:24)
--- NOTE | 2021-09-17 09:40 | PCM.SSS ---
History of Present Illness - Chief Complaint Chief Complaint: altered mkental status History of Present Illness: is a 66 year old male pt of Dr. Kyle with hx Crohn's dz, IDDM, HTN, hyperlipidemia, hx cva w/o residual effects, CAD (s/p CABG remotely) who was admitted through ER with hypoglycemia yesterday. He was at his granddaughter's wedding and started acting oddly. He doesn't remembr this. His BS initially was 53, then he ate and it was 93 but he was still altered. Had word salad in ER. after 1/2 amp D50, BS to 168 and he was better, but quickly dropped to the 120s. Had general (nonfocal) weakness. Started on D10 at 30mL/hr and admitted for observation. - Review of Systems Abdominal/Gastrointestinal: Abdominal Pain (chronic), Diarrhea (chronic), Constipation (chronic) All Other Systems: Reviewed and Negative Medications & Allergies Home Medications: Home Medication List Albuterol Sulfate [Albuterol Sulfate Hfa] 2 puff IH QID 10/24/20 [History Confirmed 09/16/21] Budesonide [Budesonide Dr] 3 mg PO DAILY 10/24/20 [History Confirmed 09/17/21] Clopidogrel Bisulfate 75 mg [PLAVIX 75 MG Tablet] 75 mg PO DAILY 10/24/20 [History Confirmed 09/16/21] Hydrocodone/Acetaminophen [Hydrocodone-Acetamin 10-325 mg] 10 tab PO BIDPRN PRN 10/24/20 [History Confirmed 09/16/21] Insulin Detemir [Levemir] 11 units SQ HS 10/24/20 [History Confirmed 09/16/21] Losartan Potassium 25 mg PO DAILY 10/24/20 [History Confirmed 09/16/21] PANTOPRAZOLE 40 mg Tablet [Protonix 40MG Tablet] 40 mg PO DAILY 10/24/20 [History Confirmed 09/16/21] Dabigatran Etexilate Mesylate [Pradaxa] 75 mg PO DAILY 09/16/21 [History Confirmed 09/16/21] Dronedarone Hydrochloride 400* [Multaq 400 MG] 200 mg PO BID 09/16/21 [History Confirmed 09/16/21] Insulin Aspart (Niacinamide) [Fiasp 100 Unit/ml Vial] 18 unit SQ BREAKFAST 09/16/21 [History Confirmed 09/16/21] Insulin Aspart (Niacinamide) [Fiasp 100 Unit/ml Vial] 18 units SQ DAILY 09/16/21 [History Confirmed 09/16/21] Insulin Aspart (Niacinamide) [Fiasp 100 Unit/ml Vial] 21 units SQ EVENING MEAL 09/16/21 [History Confirmed 09/16/21] Allergies/Adverse Reactions: Allergies Allergy/AdvReac Type Severity Reaction Status Date / Time No Known Drug Allergies Allergy Verified 09/16/21 20:15 - Past Medical History Past Medical History: Yes Neurological History: Stroke ENT History: Other Cardiac History: Coronary Artery Disease Respiratory History: No Pertinent History Endocrine Medical History: Diabetes Type II Musculoskelatal History: Arthritis GI Medical History: Crohns Disease History: No Pertinent History Pyscho-Social History: No Pertinent History Male Reproductive Disorders: Prostate Problems Comment: retinopathy no residual on stroke. - Past Surgical History Past Surgical History: Yes Neuro Surgical History: No Pertinent History Cardiac History: CABG Respiratory Surgery: No Pertinent History GI Surgical History: No Pertinent History Genitourinary Surgical Hx: No Pertinent History Musculskeletal Surgical Hx: Orthopedic Surgery Male Surgical History: No Pertinent History - Social History Smoking Status: Current every day smoker How long have you smoked: years Exposure to second hand smoke: Yes Alcohol: Rarely Drug Use: none - Physical Exam Vital Signs: Vital Signs - 24 hr Temp Pulse Resp BP Pulse Ox 09/17/21 07:54 98 F 61 18 151/67 93 L 09/17/21 05:10 20 94 L 09/17/21 04:00 99.5 F 72 20 149/67 90 L 09/16/21 23:58 99.8 F 66 20 148/65 90 L 09/16/21 22:07 97 09/16/21 21:23 72 16 94 L 09/16/21 20:27 97.7 F 63 20 160/72 97 09/16/21 20:03 76 17 147/72 97 09/16/21 19:00 72 16 149/88 98 09/16/21 18:20 64 16 159/72 99 09/16/21 17:23 96.7 F 64 18 120/62 97 General Appearance: no apparent distress, alert Neurologic Exam: alert, oriented x 3, cooperative, normal mood/affect Eye Exam: eyes nml inspection Ears, Nose, Throat Exam: moist mucous membranes Neck Exam: normal inspection, non-tender, No lymphadenopathy, No thyromegaly Respiratory Exam: normal breath sounds, lungs clear, No crackles/rales, No rhonc hi, No wheezing Cardiovascular Exam: regular rate/rhythm, normal heart sounds, No murmur Gastrointestinal/Abdomen Exam: soft, normal bowel sounds, No tenderness, No distention, No mass, No guarding, No rebound Back Exam: normal inspection, No CVA tenderness, No rash Extremity Exam: normal inspection, No pedal edema, No swelling, No tenderness Skin Exam: normal color, warm, dry, No rash Results - Labs Lab/Micro Results: Lab Results-Last 24 Hours 09/16/21 09/16/21 09/16/21 Range/Units 02:26 17:37 17:43 WBC (4.0-10.5) K/mm3 RBC (4.1-5.6) M/mm3 Hgb (12.5-18.0) gm/dl Hct (42-50) % MCV (78-100) fl MCH (26-32) pg MCHC (32-36) g/dl RDW (11.5-14.0) % Plt Count (150-450) K/mm3 MPV (7.5-11.0) fl Gran % (36.0-66.0) % Eos # (Auto) (0-0.5) Absolute Lymphs (auto) (1.0-4.6) Absolute Monos (auto) (0.0-1.3) Lymphocytes % (24.0-44.0) % Monocytes % (0.0-12.0) % Eosinophils % (0.00-5.0) % Basophils % (0.0-0.4) % Absolute Granulocytes (1.4-6.9) Basophils # (0-0.4) PT (9.4-12.5) SECONDS INR (0.8-3.0) APTT (25.1-36.5) SECONDS Sodium (137-145) mmol/L Potassium (3.5-5.1) mmol/L Chloride (98-107) mmol/L Carbon Dioxide (22-30) mmol/L Anion Gap (5-15) MEQ/L BUN (9-20) mg/dL Creatinine (0.66-1.25) mg/dL Estimated GFR ML/MIN Glucose (74-106) mg/dL POC Glucometer 53 L 168 H (74 to 106) mg/dL Lactic Acid (0.4-2.0) Calcium (8.4-10.2) mg/dL Magnesium (1.6-2.3) mg/dL Total Bilirubin (0.2-1.3) mg/dL AST (17-59) U/L ALT (0-50) U/L Alkaline Phosphatase (38-126) U/L Troponin I (0.000-0.034) ng/mL NT-Pro-B Natriuret Pep (0-900) pg/mL Serum Total Protein (6.3-8.2) g/dL Albumin (3.5-5.0) g/dL Lipase (23-300) U/L Urinalys Dipstick Clnc MAIN LAB Urine Color YELLOW (YELLOW) Urine Appearance CLEAR (CLEAR) Urine pH 5.5 (5-6) Ur Specific [place] 1.015 (1.005-1.025) POC Urine Protein Conf NEGATIVE (Negative) Urine Ketones NEGATIVE (NEGATIVE) Urine Nitrite NEGATIVE (NEGATIVE) Urine Bilirubin NEGATIVE (NEGATIVE) Urine Urobilinogen 0.2 (0-1) mg/dL Urine Leukocytes NEGATIVE (NEGATIVE) Urine WBC (Auto) NONE (0-5) /HPF Urine RBC (Auto) NONE (0-2) /HPF U Hyaline Cast (Auto) 0-2 (0-2) /LPF U Epithel Cells (Auto) NONE (FEW) /HPF Urine Bacteria (Auto) NONE SEEN (NEGATIVE) /HPF Urine RBC TRACE-INTACT (0-5) Froylan/ul Urine Sperm (Auto) PRESENT (NEGATIVE) /HPF Ur Culture Indicated? NO Urine Glucose 250 (NEGATIVE) mg/dL Influenza Type A Ag (NEGATIVE) Influenza Type B Ag (NEGATIVE) RSV (PCR) (Negative) SARS-CoV-2 (PCR) (NEGATIVE) 09/16/21 09/16/21 09/16/21 Range/Units 17:49 17:49 17:49 WBC 7.5 (4.0-10.5) K/mm3 RBC 4.04 L (4.1-5.6) M/mm3 Hgb 12.5 (12.5-18.0) gm/dl Hct 38.0 L (42-50) % MCV 94.1 (78-100) fl MCH 30.9 (26-32) pg MCHC 32.9 (32-36) g/dl RDW 13.0 (11.5-14.0) % Plt Count 190 (150-450) K/mm3 MPV 12.3 H (7.5-11.0) fl Gran % 72.2 H (36.0-66.0) % Eos # (Auto) 0.44 (0-0.5) Absolute Lymphs (auto) 0.96 L (1.0-4.6) Absolute Monos (auto) 0.62 (0.0-1.3) Lymphocytes % 12.8 L (24.0-44.0) % Monocytes % 8.3 (0.0-12.0) % Eosinophils % 5.9 H (0.00-5.0) % Basophils % 0.8 (0.0-0.4) % Absolute Granulocytes 5.40 (1.4-6.9) Basophils # 0.06 (0-0.4) PT 14.3 H (9.4-12.5) SECONDS INR 1.21 (0.8-3.0) APTT 47.6 H (25.1-36.5) SECONDS Sodium 135 L (137-145) mmol/L Potassium 4.0 (3.5-5.1) mmol/L Chloride 100 (98-107) mmol/L Carbon Dioxide 27 (22-30) mmol/L Anion Gap 12.2 (5-15) MEQ/L BUN 20 (9-20) mg/dL Creatinine 1.04 (0.66-1.25) mg/dL Estimated GFR > 60.0 ML/MIN Glucose 55 L (74-106) mg/dL POC Glucometer (74 to 106) mg/dL Lactic Acid (0.4-2.0) Calcium 9.2 (8.4-10.2) mg/dL Magnesium (1.6-2.3) mg/dL Total Bilirubin 0.70 (0.2-1.3) mg/dL AST 24 (17-59) U/L ALT 18 (0-50) U/L Alkaline Phosphatase 148 H (38-126) U/L Troponin I (0.000-0.034) ng/mL NT-Pro-B Natriuret Pep (0-900) pg/mL Serum Total Protein 6.4 (6.3-8.2) g/dL Albumin 3.8 (3.5-5.0) g/dL Lipase (23-300) U/L Urinalys Dipstick Clnc Urine Color (YELLOW) Urine Appearance (CLEAR) Urine pH (5-6) Ur Specific [place] (1.005-1.025) POC Urine Protein Conf (Negative) Urine Ketones (NEGATIVE) Urine Nitrite (NEGATIVE) Urine Bilirubin (NEGATIVE) Urine Urobilinogen (0-1) mg/dL Urine Leukocytes (NEGATIVE) Urine WBC (Auto) (0-5) /HPF Urine RBC (Auto) (0-2) /HPF U Hyaline Cast (Auto) (0-2) /LPF U Epithel Cells (Auto) (FEW) /HPF Urine Bacteria (Auto) (NEGATIVE) /HPF Urine RBC (0-5) Froylan/ul Urine Sperm (Auto) (NEGATIVE) /HPF Ur Culture Indicated? Urine Glucose (NEGATIVE) mg/dL Influenza Type A Ag (NEGATIVE) Influenza Type B Ag (NEGATIVE) RSV (PCR) (Negative) SARS-CoV-2 (PCR) (NEGATIVE) 09/16/21 09/16/21 09/16/21 Range/Units 17:49 17:58 18:20 WBC (4.0-10.5) K/mm3 RBC (4.1-5.6) M/mm3 Hgb (12.5-18.0) gm/dl Hct (42-50) % MCV (78-100) fl MCH (26-32) pg MCHC (32-36) g/dl RDW (11.5-14.0) % Plt Count (150-450) K/mm3 MPV (7.5-11.0) fl Gran % (36.0-66.0) % Eos # (Auto) (0-0.5) Absolute Lymphs (auto) (1.0-4.6) Absolute Monos (auto) (0.0-1.3) Lymphocytes % (24.0-44.0) % Monocytes % (0.0-12.0) % Eosinophils % (0.00-5.0) % Basophils % (0.0-0.4) % Absolute Granulocytes (1.4-6.9) Basophils # (0-0.4) PT (9.4-12.5) SECONDS INR (0.8-3.0) APTT (25.1-36.5) SECONDS Sodium (137-145) mmol/L Potassium (3.5-5.1) mmol/L Chloride (98-107) mmol/L Carbon Dioxide (22-30) mmol/L Anion Gap (5-15) MEQ/L BUN (9-20) mg/dL Creatinine (0.66-1.25) mg/dL Estimated GFR ML/MIN Glucose (74-106) mg/dL POC Glucometer 122 H (74 to 106) mg/dL Lactic Acid 1.6 (0.4-2.0) Calcium (8.4-10.2) mg/dL Magnesium (1.6-2.3) mg/dL Total Bilirubin (0.2-1.3) mg/dL AST (17-59) U/L ALT (0-50) U/L Alkaline Phosphatase (38-126) U/L Troponin I < 0.012 (0.000-0.034) ng/mL NT-Pro-B Natriuret Pep (0-900) pg/mL Serum Total Protein (6.3-8.2) g/dL Albumin (3.5-5.0) g/dL Lipase (23-300) U/L Urinalys Dipstick Clnc Urine Color (YELLOW) Urine Appearance (CLEAR) Urine pH (5-6) Ur Specific [place] (1.005-1.025) POC Urine Protein Conf (Negative) Urine Ketones (NEGATIVE) Urine Nitrite (NEGATIVE) Urine Bilirubin (NEGATIVE) Urine Urobilinogen (0-1) mg/dL Urine Leukocytes (NEGATIVE) Urine WBC (Auto) (0-5) /HPF Urine RBC (Auto) (0-2) /HPF U Hyaline Cast (Auto) (0-2) /LPF U Epithel Cells (Auto) (FEW) /HPF Urine Bacteria (Auto) (NEGATIVE) /HPF Urine RBC (0-5) Froylan/ul Urine Sperm (Auto) (NEGATIVE) /HPF Ur Culture Indicated? Urine Glucose (NEGATIVE) mg/dL Influenza Type A Ag (NEGATIVE) Influenza Type B Ag (NEGATIVE) RSV (PCR) (Negative) SARS-CoV-2 (PCR) (NEGATIVE) 09/16/21 09/16/21 09/16/21 Range/Units 18:31 18:31 19:16 WBC (4.0-10.5) K/mm3 RBC (4.1-5.6) M/mm3 Hgb (12.5-18.0) gm/dl Hct (42-50) % MCV (78-100) fl MCH (26-32) pg MCHC (32-36) g/dl RDW (11.5-14.0) % Plt Count (150-450) K/mm3 MPV (7.5-11.0) fl Gran % (36.0-66.0) % Eos # (Auto) (0-0.5) Absolute Lymphs (auto) (1.0-4.6) Absolute Monos (auto) (0.0-1.3) Lymphocytes % (24.0-44.0) % Monocytes % (0.0-12.0) % Eosinophils % (0.00-5.0) % Basophils % (0.0-0.4) % Absolute Granulocytes (1.4-6.9) Basophils # (0-0.4) PT (9.4-12.5) SECONDS INR (0.8-3.0) APTT (25.1-36.5) SECONDS Sodium (137-145) mmol/L Potassium (3.5-5.1) mmol/L Chloride (98-107) mmol/L Carbon Dioxide (22-30) mmol/L Anion Gap (5-15) MEQ/L BUN (9-20) mg/dL Creatinine (0.66-1.25) mg/dL Estimated GFR ML/MIN Glucose (74-106) mg/dL POC Glucometer (74 to 106) mg/dL Lactic Acid (0.4-2.0) Calcium (8.4-10.2) mg/dL Magnesium 2.3 (1.6-2.3) mg/dL Total Bilirubin (0.2-1.3) mg/dL AST (17-59) U/L ALT (0-50) U/L Alkaline Phosphatase (38-126) U/L Troponin I (0.000-0.034) ng/mL NT-Pro-B Natriuret Pep 202 (0-900) pg/mL Serum Total Protein (6.3-8.2) g/dL Albumin (3.5-5.0) g/dL Lipase 16 L (23-300) U/L Urinalys Dipstick Clnc Urine Color (YELLOW) Urine Appearance (CLEAR) Urine pH (5-6) Ur Specific [place] (1.005-1.025) POC Urine Protein Conf (Negative) Urine Ketones (NEGATIVE) Urine Nitrite (NEGATIVE) Urine Bilirubin (NEGATIVE) Urine Urobilinogen (0-1) mg/dL Urine Leukocytes (NEGATIVE) Urine WBC (Auto) (0-5) /HPF Urine RBC (Auto) (0-2) /HPF U Hyaline Cast (Auto) (0-2) /LPF U Epithel Cells (Auto) (FEW) /HPF Urine Bacteria (Auto) (NEGATIVE) /HPF Urine RBC (0-5) Froylan/ul Urine Sperm (Auto) (NEGATIVE) /HPF Ur Culture Indicated? Urine Glucose (NEGATIVE) mg/dL Influenza Type A Ag NEGATIVE (NEGATIVE) Influenza Type B Ag NEGATIVE (NEGATIVE) RSV (PCR) NEGATIVE (Negative) SARS-CoV-2 (PCR) NEGATIVE (NEGATIVE) 09/16/21 09/16/21 09/16/21 Range/Units 19:17 21:16 21:26 WBC (4.0-10.5) K/mm3 RBC (4.1-5.6) M/mm3 Hgb (12.5-18.0) gm/dl Hct (42-50) % MCV (78-100) fl MCH (26-32) pg MCHC (32-36) g/dl RDW (11.5-14.0) % Plt Count (150-450) K/mm3 MPV (7.5-11.0) fl Gran % (36.0-66.0) % Eos # (Auto) (0-0.5) Absolute Lymphs (auto) (1.0-4.6) Absolute Monos (auto) (0.0-1.3) Lymphocytes % (24.0-44.0) % Monocytes % (0.0-12.0) % Eosinophils % (0.00-5.0) % Basophils % (0.0-0.4) % Absolute Granulocytes (1.4-6.9) Basophils # (0-0.4) PT (9.4-12.5) SECONDS INR (0.8-3.0) APTT (25.1-36.5) SECONDS Sodium (137-145) mmol/L Potassium (3.5-5.1) mmol/L Chloride (98-107) mmol/L Carbon Dioxide (22-30) mmol/L Anion Gap (5-15) MEQ/L BUN (9-20) mg/dL Creatinine (0.66-1.25) mg/dL Estimated GFR ML/MIN Glucose (74-106) mg/dL POC Glucometer 183 H 201 H (74 to 106) mg/dL Lactic Acid (0.4-2.0) Calcium (8.4-10.2) mg/dL Magnesium (1.6-2.3) mg/dL Total Bilirubin (0.2-1.3) mg/dL AST (17-59) U/L ALT (0-50) U/L Alkaline Phosphatase (38-126) U/L Troponin I < 0.012 (0.000-0.034) ng/mL NT-Pro-B Natriuret Pep (0-900) pg/mL Serum Total Protein (6.3-8.2) g/dL Albumin (3.5-5.0) g/dL Lipase (23-300) U/L Urinalys Dipstick Clnc Urine Color (YELLOW) Urine Appearance (CLEAR) Urine pH (5-6) Ur Specific [place] (1.005-1.025) POC Urine Protein Conf (Negative) Urine Ketones (NEGATIVE) Urine Nitrite (NEGATIVE) Urine Bilirubin (NEGATIVE) Urine Urobilinogen (0-1) mg/dL Urine Leukocytes (NEGATIVE) Urine WBC (Auto) (0-5) /HPF Urine RBC (Auto) (0-2) /HPF U Hyaline Cast (Auto) (0-2) /LPF U Epithel Cells (Auto) (FEW) /HPF Urine Bacteria (Auto) (NEGATIVE) /HPF Urine RBC (0-5) Froylan/ul Urine Sperm (Auto) (NEGATIVE) /HPF Ur Culture Indicated? Urine Glucose (NEGATIVE) mg/dL Influenza Type A Ag (NEGATIVE) Influenza Type B Ag (NEGATIVE) RSV (PCR) (Negative) SARS-CoV-2 (PCR) (NEGATIVE) 05/14/22 05/15/22 05/15/22 Range/Units 23:49 03:02 05:37 WBC (4.0-10.5) K/mm3 RBC (4.1-5.6) M/mm3 Hgb (12.5-18.0) gm/dl Hct (42-50) % MCV (78-100) fl MCH (26-32) pg MCHC (32-36) g/dl RDW (11.5-14.0) % Plt Count (150-450) K/mm3 MPV (7.5-11.0) fl Gran % (36.0-66.0) % Eos # (Auto) (0-0.5) Absolute Lymphs (auto) (1.0-4.6) Absolute Monos (auto) (0.0-1.3) Lymphocytes % (24.0-44.0) % Monocytes % (0.0-12.0) % Eosinophils % (0.00-5.0) % Basophils % (0.0-0.4) % Absolute Granulocytes (1.4-6.9) Basophils # (0-0.4) PT (9.4-12.5) SECONDS INR (0.8-3.0) APTT (25.1-36.5) SECONDS Sodium (137-145) mmol/L Potassium (3.5-5.1) mmol/L Chloride (98-107) mmol/L Carbon Dioxide (22-30) mmol/L Anion Gap (5-15) MEQ/L BUN (9-20) mg/dL Creatinine (0.66-1.25) mg/dL Estimated GFR ML/MIN Glucose (74-106) mg/dL POC Glucometer 257 H (74 to 106) mg/dL Lactic Acid (0.4-2.0) Calcium (8.4-10.2) mg/dL Magnesium (1.6-2.3) mg/dL Total Bilirubin (0.2-1.3) mg/dL AST (17-59) U/L ALT (0-50) U/L Alkaline Phosphatase (38-126) U/L Troponin I < 0.012 < 0.012 (0.000-0.034) ng/mL NT-Pro-B Natriuret Pep (0-900) pg/mL Serum Total Protein (6.3-8.2) g/dL Albumin (3.5-5.0) g/dL Lipase (23-300) U/L Urinalys Dipstick Clnc Urine Color (YELLOW) Urine Appearance (CLEAR) Urine pH (5-6) Ur Specific [place] (1.005-1.025) POC Urine Protein Conf (Negative) Urine Ketones (NEGATIVE) Urine Nitrite (NEGATIVE) Urine Bilirubin (NEGATIVE) Urine Urobilinogen (0-1) mg/dL Urine Leukocytes (NEGATIVE) Urine WBC (Auto) (0-5) /HPF Urine RBC (Auto) (0-2) /HPF U Hyaline Cast (Auto) (0-2) /LPF U Epithel Cells (Auto) (FEW) /HPF Urine Bacteria (Auto) (NEGATIVE) /HPF Urine RBC (0-5) Froylan/ul Urine Sperm (Auto) (NEGATIVE) /HPF Ur Culture Indicated? Urine Glucose (NEGATIVE) mg/dL Influenza Type A Ag (NEGATIVE) Influenza Type B Ag (NEGATIVE) RSV (PCR) (Negative) SARS-CoV-2 (PCR) (NEGATIVE) 09/17/21 09/17/21 09/17/21 Range/Units 05:37 05:37 07:30 WBC 5.9 (4.0-10.5) K/mm3 RBC 4.47 (4.1-5.6) M/mm3 Hgb 13.7 (12.5-18.0) gm/dl Hct 42.2 (42-50) % MCV 94.4 (78-100) fl MCH 30.6 (26-32) pg MCHC 32.5 (32-36) g/dl RDW 13.1 (11.5-14.0) % Plt Count 179 (150-450) K/mm3 MPV 13.0 H (7.5-11.0) fl Gran % 71.0 H (36.0-66.0) % Eos # (Auto) 0.44 (0-0.5) Absolute Lymphs (auto) 0.79 L (1.0-4.6) Absolute Monos (auto) 0.44 (0.0-1.3) Lymphocytes % 13.5 L (24.0-44.0) % Monocytes % 7.5 (0.0-12.0) % Eosinophils % 7.5 H (0.00-5.0) % Basophils % 0.5 (0.0-0.4) % Absolute Granulocytes 4.17 (1.4-6.9) Basophils # 0.03 (0-0.4) PT (9.4-12.5) SECONDS INR (0.8-3.0) APTT (25.1-36.5) SECONDS Sodium 135 L (137-145) mmol/L Potassium 4.6 (3.5-5.1) mmol/L Chloride 103 (98-107) mmol/L Carbon Dioxide 24 (22-30) mmol/L Anion Gap 13.0 (5-15) MEQ/L BUN 14 (9-20) mg/dL Creatinine 0.91 (0.66-1.25) mg/dL Estimated GFR > 60.0 ML/MIN Glucose 283 H (74-106) mg/dL POC Glucometer 248 H (74 to 106) mg/dL Lactic Acid (0.4-2.0) Calcium 9.1 (8.4-10.2) mg/dL Magnesium (1.6-2.3) mg/dL Total Bilirubin 0.50 (0.2-1.3) mg/dL AST 24 (17-59) U/L ALT 18 (0-50) U/L Alkaline Phosphatase 171 H (38-126) U/L Troponin I (0.000-0.034) ng/mL NT-Pro-B Natriuret Pep (0-900) pg/mL Serum Total Protein 7.2 (6.3-8.2) g/dL Albumin 4.0 (3.5-5.0) g/dL Lipase (23-300) U/L Urinalys Dipstick Clnc Urine Color (YELLOW) Urine Appearance (CLEAR) Urine pH (5-6) Ur Specific [place] (1.005-1.025) POC Urine Protein Conf (Negative) Urine Ketones (NEGATIVE) Urine Nitrite (NEGATIVE) Urine Bilirubin (NEGATIVE) Urine Urobilinogen (0-1) mg/dL Urine Leukocytes (NEGATIVE) Urine WBC (Auto) (0-5) /HPF Urine RBC (Auto) (0-2) /HPF U Hyaline Cast (Auto) (0-2) /LPF U Epithel Cells (Auto) (FEW) /HPF Urine Bacteria (Auto) (NEGATIVE) /HPF Urine RBC (0-5) Froylan/ul Urine Sperm (Auto) (NEGATIVE) /HPF Ur Culture Indicated? Urine Glucose (NEGATIVE) mg/dL Influenza Type A Ag (NEGATIVE) Influenza Type B Ag (NEGATIVE) RSV (PCR) (Negative) SARS-CoV-2 (PCR) (NEGATIVE) 09/17/21 Range/Units 08:28 WBC (4.0-10.5) K/mm3 RBC (4.1-5.6) M/mm3 Hgb (12.5-18.0) gm/dl Hct (42-50) % MCV (78-100) fl MCH (26-32) pg MCHC (32-36) g/dl RDW (11.5-14.0) % Plt Count (150-450) K/mm3 MPV (7.5-11.0) fl Gran % (36.0-66.0) % Eos # (Auto) (0-0.5) Absolute Lymphs (auto) (1.0-4.6) Absolute Monos (auto) (0.0-1.3) Lymphocytes % (24.0-44.0) % Monocytes % (0.0-12.0) % Eosinophils % (0.00-5.0) % Basophils % (0.0-0.4) % Absolute Granulocytes (1.4-6.9) Basophils # (0-0.4) PT (9.4-12.5) SECONDS INR (0.8-3.0) APTT (25.1-36.5) SECONDS Sodium (137-145) mmol/L Potassium (3.5-5.1) mmol/L Chloride (98-107) mmol/L Carbon Dioxide (22-30) mmol/L Anion Gap (5-15) MEQ/L BUN (9-20) mg/dL Creatinine (0.66-1.25) mg/dL Estimated GFR ML/MIN Glucose (74-106) mg/dL POC Glucometer 272 H (74 to 106) mg/dL Lactic Acid (0.4-2.0) Calcium (8.4-10.2) mg/dL Magnesium (1.6-2.3) mg/dL Total Bilirubin (0.2-1.3) mg/dL AST (17-59) U/L ALT (0-50) U/L Alkaline Phosphatase (38-126) U/L Troponin I (0.000-0.034) ng/mL NT-Pro-B Natriuret Pep (0-900) pg/mL Serum Total Protein (6.3-8.2) g/dL Albumin (3.5-5.0) g/dL Lipase (23-300) U/L Urinalys Dipstick Clnc Urine Color (YELLOW) Urine Appearance (CLEAR) Urine pH (5-6) Ur Specific [place] (1.005-1.025) POC Urine Protein Conf (Negative) Urine Ketones (NEGATIVE) Urine Nitrite (NEGATIVE) Urine Bilirubin (NEGATIVE) Urine Urobilinogen (0-1) mg/dL Urine Leukocytes (NEGATIVE) Urine WBC (Auto) (0-5) /HPF Urine RBC (Auto) (0-2) /HPF U Hyaline Cast (Auto) (0-2) /LPF U Epithel Cells (Auto) (FEW) /HPF Urine Bacteria (Auto) (NEGATIVE) /HPF Urine RBC (0-5) Froylan/ul Urine Sperm (Auto) (NEGATIVE) /HPF Ur Culture Indicated? Urine Glucose (NEGATIVE) mg/dL Influenza Type A Ag (NEGATIVE) Influenza Type B Ag (NEGATIVE) RSV (PCR) (Negative) SARS-CoV-2 (PCR) (NEGATIVE) Accuchecks Date 09/17/21 Date 09/17/21 Date 09/16/21 Date 09/16/21 Date 09/16/21 Time 08:28 Time 07:30 Time 19:17 Time 18:00 Time 17:46 - Radiology Impressions Radiology Exams & Impressions: Radiology Procedures Category Date Time Status CHEST 1 VIEW (PORTABLE) Stat Exams 09/16/21 17:34 Completed HEAD WITHOUT CONTRAST [CT] Stat Exams 09/16/21 17:21 Completed - Other Procedures and Tests Respiratory Therapy 09/16/21 21:23 Respiratory Therapy Assessment DAILY Assessment/Plan (1) Hypoglycemia Current Visit: Yes Status: Resolved Assessment & Plan: He may have taken long acting insulin in the place of short acting by mistake - pt can't remember. Will keep him in hospital x 24h after the episode started. His BS are currently fine, in the 200s. Code(s): E16.2 - HYPOGLYCEMIA, UNSPECIFIED (2) Altered mental status Current Visit: Yes Status: Resolved Qualifiers: Altered mental status type: disorientation Qualified Code(s): R41.0 - Disorientation, unspecified Assessment & Plan: Likely due to low blood sugars. Labs including troponins, CT head all non- acute. Code(s): R41.82 - ALTERED MENTAL STATUS, UNSPECIFIED (3) IDDM (insulin dependent diabetes mellitus) Current Visit: Yes Status: Chronic Code(s): [id number] - Hospital Summary - Hospital Course Hospital Course: Pt wiht IDDM admitted with AMS and hypoglycemia, possiblyl after taking his insulin incorrectly, pt can't remember. This morning he is alert and oriented, feeling good. Will keep him x24h after the episode started in the event he took too much long acting insulin. Was on D10 until 6:30 am but doing well since. F/u with Dr. Kyle. - Vitals & Intake/Output Vital Signs: Vital Signs Temperature 98 F 09/17/21 07:54 Pulse Rate 61 09/17/21 07:54 Respiratory Rate 18 09/17/21 07:54 Blood Pressure 151/67 09/17/21 07:54 O2 Sat by Pulse Oximetry 93 L 09/17/21 07:54 Intake & Output: Intake & Output 09/14/21 09/15/21 09/16/21 09/17/21 11:59 11:59 11:59 11:59 Intake Total 1592 Output Total 850 Balance 742 Weight 58.8 kg - Lab Result Diagrams: 09/17/21 05:37 09/17/21 05:37 Lab Results-Last 24 Hrs: Lab Results-Last 24 Hours 09/16/21 09/16/21 09/16/21 Range/Units 02:26 17:37 17:43 WBC (4.0-10.5) K/mm3 RBC (4.1-5.6) M/mm3 Hgb (12.5-18.0) gm/dl Hct (42-50) % MCV (78-100) fl MCH (26-32) pg MCHC (32-36) g/dl RDW (11.5-14.0) % Plt Count (150-450) K/mm3 MPV (7.5-11.0) fl Gran % (36.0-66.0) % Eos # (Auto) (0-0.5) Absolute Lymphs (auto) (1.0-4.6) Absolute Monos (auto) (0.0-1.3) Lymphocytes % (24.0-44.0) % Monocytes % (0.0-12.0) % Eosinophils % (0.00-5.0) % Basophils % (0.0-0.4) % Absolute Granulocytes (1.4-6.9) Basophils # (0-0.4) PT (9.4-12.5) SECONDS INR (0.8-3.0) APTT (25.1-36.5) SECONDS Sodium (137-145) mmol/L Potassium (3.5-5.1) mmol/L Chloride (98-107) mmol/L Carbon Dioxide (22-30) mmol/L Anion Gap (5-15) MEQ/L BUN (9-20) mg/dL Creatinine (0.66-1.25) mg/dL Estimated GFR ML/MIN Glucose (74-106) mg/dL POC Glucometer 53 L 168 H (74 to 106) mg/dL Lactic Acid (0.4-2.0) Calcium (8.4-10.2) mg/dL Magnesium (1.6-2.3) mg/dL Total Bilirubin (0.2-1.3) mg/dL AST (17-59) U/L ALT (0-50) U/L Alkaline Phosphatase (38-126) U/L Troponin I (0.000-0.034) ng/mL NT-Pro-B Natriuret Pep (0-900) pg/mL Serum Total Protein (6.3-8.2) g/dL Albumin (3.5-5.0) g/dL Lipase (23-300) U/L Urinalys Dipstick Clnc MAIN LAB Urine Color YELLOW (YELLOW) Urine Appearance CLEAR (CLEAR) Urine pH 5.5 (5-6) Ur Specific [place] 1.015 (1.005-1.025) POC Urine Protein Conf NEGATIVE (Negative) Urine Ketones NEGATIVE (NEGATIVE) Urine Nitrite NEGATIVE (NEGATIVE) Urine Bilirubin NEGATIVE (NEGATIVE) Urine Urobilinogen 0.2 (0-1) mg/dL Urine Leukocytes NEGATIVE (NEGATIVE) Urine WBC (Auto) NONE (0-5) /HPF Urine RBC (Auto) NONE (0-2) /HPF U Hyaline Cast (Auto) 0-2 (0-2) /LPF U Epithel Cells (Auto) NONE (FEW) /HPF Urine Bacteria (Auto) NONE SEEN (NEGATIVE) /HPF Urine RBC TRACE-INTACT (0-5) Froylan/ul Urine Sperm (Auto) PRESENT (NEGATIVE) /HPF Ur Culture Indicated? NO Urine Glucose 250 (NEGATIVE) mg/dL Influenza Type A Ag (NEGATIVE) Influenza Type B Ag (NEGATIVE) RSV (PCR) (Negative) SARS-CoV-2 (PCR) (NEGATIVE) 09/16/21 09/16/21 09/16/21 Range/Units 17:49 17:49 17:49 WBC 7.5 (4.0-10.5) K/mm3 RBC 4.04 L (4.1-5.6) M/mm3 Hgb 12.5 (12.5-18.0) gm/dl Hct 38.0 L (42-50) % MCV 94.1 (78-100) fl MCH 30.9 (26-32) pg MCHC 32.9 (32-36) g/dl RDW 13.0 (11.5-14.0) % Plt Count 190 (150-450) K/mm3 MPV 12.3 H (7.5-11.0) fl Gran % 72.2 H (36.0-66.0) % Eos # (Auto) 0.44 (0-0.5) Absolute Lymphs (auto) 0.96 L (1.0-4.6) Absolute Monos (auto) 0.62 (0.0-1.3) Lymphocytes % 12.8 L (24.0-44.0) % Monocytes % 8.3 (0.0-12.0) % Eosinophils % 5.9 H (0.00-5.0) % Basophils % 0.8 (0.0-0.4) % Absolute Granulocytes 5.40 (1.4-6.9) Basophils # 0.06 (0-0.4) PT 14.3 H (9.4-12.5) SECONDS INR 1.21 (0.8-3.0) APTT 47.6 H (25.1-36.5) SECONDS Sodium 135 L (137-145) mmol/L Potassium 4.0 (3.5-5.1) mmol/L Chloride 100 (98-107) mmol/L Carbon Dioxide 27 (22-30) mmol/L Anion Gap 12.2 (5-15) MEQ/L BUN 20 (9-20) mg/dL Creatinine 1.04 (0.66-1.25) mg/dL Estimated GFR > 60.0 ML/MIN Glucose 55 L (74-106) mg/dL POC Glucometer (74 to 106) mg/dL Lactic Acid (0.4-2.0) Calcium 9.2 (8.4-10.2) mg/dL Magnesium (1.6-2.3) mg/dL Total Bilirubin 0.70 (0.2-1.3) mg/dL AST 24 (17-59) U/L ALT 18 (0-50) U/L Alkaline Phosphatase 148 H (38-126) U/L Troponin I (0.000-0.034) ng/mL NT-Pro-B Natriuret Pep (0-900) pg/mL Serum Total Protein 6.4 (6.3-8.2) g/dL Albumin 3.8 (3.5-5.0) g/dL Lipase (23-300) U/L Urinalys Dipstick Clnc Urine Color (YELLOW) Urine Appearance (CLEAR) Urine pH (5-6) Ur Specific [place] (1.005-1.025) POC Urine Protein Conf (Negative) Urine Ketones (NEGATIVE) Urine Nitrite (NEGATIVE) Urine Bilirubin (NEGATIVE) Urine Urobilinogen (0-1) mg/dL Urine Leukocytes (NEGATIVE) Urine WBC (Auto) (0-5) /HPF Urine RBC (Auto) (0-2) /HPF U Hyaline Cast (Auto) (0-2) /LPF U Epithel Cells (Auto) (FEW) /HPF Urine Bacteria (Auto) (NEGATIVE) /HPF Urine RBC (0-5) Froylan/ul Urine Sperm (Auto) (NEGATIVE) /HPF Ur Culture Indicated? Urine Glucose (NEGATIVE) mg/dL Influenza Type A Ag (NEGATIVE) Influenza Type B Ag (NEGATIVE) RSV (PCR) (Negative) SARS-CoV-2 (PCR) (NEGATIVE) 09/16/21 09/16/21 09/16/21 Range/Units 17:49 17:58 18:20 WBC (4.0-10.5) K/mm3 RBC (4.1-5.6) M/mm3 Hgb (12.5-18.0) gm/dl Hct (42-50) % MCV (78-100) fl MCH (26-32) pg MCHC (32-36) g/dl RDW (11.5-14.0) % Plt Count (150-450) K/mm3 MPV (7.5-11.0) fl Gran % (36.0-66.0) % Eos # (Auto) (0-0.5) Absolute Lymphs (auto) (1.0-4.6) Absolute Monos (auto) (0.0-1.3) Lymphocytes % (24.0-44.0) % Monocytes % (0.0-12.0) % Eosinophils % (0.00-5.0) % Basophils % (0.0-0.4) % Absolute Granulocytes (1.4-6.9) Basophils # (0-0.4) PT (9.4-12.5) SECONDS INR (0.8-3.0) APTT (25.1-36.5) SECONDS Sodium (137-145) mmol/L Potassium (3.5-5.1) mmol/L Chloride (98-107) mmol/L Carbon Dioxide (22-30) mmol/L Anion Gap (5-15) MEQ/L BUN (9-20) mg/dL Creatinine (0.66-1.25) mg/dL Estimated GFR ML/MIN Glucose (74-106) mg/dL POC Glucometer 122 H (74 to 106) mg/dL Lactic Acid 1.6 (0.4-2.0) Calcium (8.4-10.2) mg/dL Magnesium (1.6-2.3) mg/dL Total Bilirubin (0.2-1.3) mg/dL AST (17-59) U/L ALT (0-50) U/L Alkaline Phosphatase (38-126) U/L Troponin I < 0.012 (0.000-0.034) ng/mL NT-Pro-B Natriuret Pep (0-900) pg/mL Serum Total Protein (6.3-8.2) g/dL Albumin (3.5-5.0) g/dL Lipase (23-300) U/L Urinalys Dipstick Clnc Urine Color (YELLOW) Urine Appearance (CLEAR) Urine pH (5-6) Ur Specific [place] (1.005-1.025) POC Urine Protein Conf (Negative) Urine Ketones (NEGATIVE) Urine Nitrite (NEGATIVE) Urine Bilirubin (NEGATIVE) Urine Urobilinogen (0-1) mg/dL Urine Leukocytes (NEGATIVE) Urine WBC (Auto) (0-5) /HPF Urine RBC (Auto) (0-2) /HPF U Hyaline Cast (Auto) (0-2) /LPF U Epithel Cells (Auto) (FEW) /HPF Urine Bacteria (Auto) (NEGATIVE) /HPF Urine RBC (0-5) Froylan/ul Urine Sperm (Auto) (NEGATIVE) /HPF Ur Culture Indicated? Urine Glucose (NEGATIVE) mg/dL Influenza Type A Ag (NEGATIVE) Influenza Type B Ag (NEGATIVE) RSV (PCR) (Negative) SARS-CoV-2 (PCR) (NEGATIVE) 09/16/21 09/16/21 09/16/21 Range/Units 18:31 18:31 19:16 WBC (4.0-10.5) K/mm3 RBC (4.1-5.6) M/mm3 Hgb (12.5-18.0) gm/dl Hct (42-50) % MCV (78-100) fl MCH (26-32) pg MCHC (32-36) g/dl RDW (11.5-14.0) % Plt Count (150-450) K/mm3 MPV (7.5-11.0) fl Gran % (36.0-66.0) % Eos # (Auto) (0-0.5) Absolute Lymphs (auto) (1.0-4.6) Absolute Monos (auto) (0.0-1.3) Lymphocytes % (24.0-44.0) % Monocytes % (0.0-12.0) % Eosinophils % (0.00-5.0) % Basophils % (0.0-0.4) % Absolute Granulocytes (1.4-6.9) Basophils # (0-0.4) PT (9.4-12.5) SECONDS INR (0.8-3.0) APTT (25.1-36.5) SECONDS Sodium (137-145) mmol/L Potassium (3.5-5.1) mmol/L Chloride (98-107) mmol/L Carbon Dioxide (22-30) mmol/L Anion Gap (5-15) MEQ/L BUN (9-20) mg/dL Creatinine (0.66-1.25) mg/dL Estimated GFR ML/MIN Glucose (74-106) mg/dL POC Glucometer (74 to 106) mg/dL Lactic Acid (0.4-2.0) Calcium (8.4-10.2) mg/dL Magnesium 2.3 (1.6-2.3) mg/dL Total Bilirubin (0.2-1.3) mg/dL AST (17-59) U/L ALT (0-50) U/L Alkaline Phosphatase (38-126) U/L Troponin I (0.000-0.034) ng/mL NT-Pro-B Natriuret Pep 202 (0-900) pg/mL Serum Total Protein (6.3-8.2) g/dL Albumin (3.5-5.0) g/dL Lipase 16 L (23-300) U/L Urinalys Dipstick Clnc Urine Color (YELLOW) Urine Appearance (CLEAR) Urine pH (5-6) Ur Specific [place] (1.005-1.025) POC Urine Protein Conf (Negative) Urine Ketones (NEGATIVE) Urine Nitrite (NEGATIVE) Urine Bilirubin (NEGATIVE) Urine Urobilinogen (0-1) mg/dL Urine Leukocytes (NEGATIVE) Urine WBC (Auto) (0-5) /HPF Urine RBC (Auto) (0-2) /HPF U Hyaline Cast (Auto) (0-2) /LPF U Epithel Cells (Auto) (FEW) /HPF Urine Bacteria (Auto) (NEGATIVE) /HPF Urine RBC (0-5) Froylan/ul Urine Sperm (Auto) (NEGATIVE) /HPF Ur Culture Indicated? Urine Glucose (NEGATIVE) mg/dL Influenza Type A Ag NEGATIVE (NEGATIVE) Influenza Type B Ag NEGATIVE (NEGATIVE) RSV (PCR) NEGATIVE (Negative) SARS-CoV-2 (PCR) NEGATIVE (NEGATIVE) 09/16/21 09/16/21 09/16/21 Range/Units 19:17 21:16 21:26 WBC (4.0-10.5) K/mm3 RBC (4.1-5.6) M/mm3 Hgb (12.5-18.0) gm/dl Hct (42-50) % MCV (78-100) fl MCH (26-32) pg MCHC (32-36) g/dl RDW (11.5-14.0) % Plt Count (150-450) K/mm3 MPV (7.5-11.0) fl Gran % (36.0-66.0) % Eos # (Auto) (0-0.5) Absolute Lymphs (auto) (1.0-4.6) Absolute Monos (auto) (0.0-1.3) Lymphocytes % (24.0-44.0) % Monocytes % (0.0-12.0) % Eosinophils % (0.00-5.0) % Basophils % (0.0-0.4) % Absolute Granulocytes (1.4-6.9) Basophils # (0-0.4) PT (9.4-12.5) SECONDS INR (0.8-3.0) APTT (25.1-36.5) SECONDS Sodium (137-145) mmol/L Potassium (3.5-5.1) mmol/L Chloride (98-107) mmol/L Carbon Dioxide (22-30) mmol/L Anion Gap (5-15) MEQ/L BUN (9-20) mg/dL Creatinine (0.66-1.25) mg/dL Estimated GFR ML/MIN Glucose (74-106) mg/dL POC Glucometer 183 H 201 H (74 to 106) mg/dL Lactic Acid (0.4-2.0) Calcium (8.4-10.2) mg/dL Magnesium (1.6-2.3) mg/dL Total Bilirubin (0.2-1.3) mg/dL AST (17-59) U/L ALT (0-50) U/L Alkaline Phosphatase (38-126) U/L Troponin I < 0.012 (0.000-0.034) ng/mL NT-Pro-B Natriuret Pep (0-900) pg/mL Serum Total Protein (6.3-8.2) g/dL Albumin (3.5-5.0) g/dL Lipase (23-300) U/L Urinalys Dipstick Clnc Urine Color (YELLOW) Urine Appearance (CLEAR) Urine pH (5-6) Ur Specific [place] (1.005-1.025) POC Urine Protein Conf (Negative) Urine Ketones (NEGATIVE) Urine Nitrite (NEGATIVE) Urine Bilirubin (NEGATIVE) Urine Urobilinogen (0-1) mg/dL Urine Leukocytes (NEGATIVE) Urine WBC (Auto) (0-5) /HPF Urine RBC (Auto) (0-2) /HPF U Hyaline Cast (Auto) (0-2) /LPF U Epithel Cells (Auto) (FEW) /HPF Urine Bacteria (Auto) (NEGATIVE) /HPF Urine RBC (0-5) Froylan/ul Urine Sperm (Auto) (NEGATIVE) /HPF Ur Culture Indicated? Urine Glucose (NEGATIVE) mg/dL Influenza Type A Ag (NEGATIVE) Influenza Type B Ag (NEGATIVE) RSV (PCR) (Negative) SARS-CoV-2 (PCR) (NEGATIVE) 09/16/21 09/17/21 09/17/21 Range/Units 23:49 03:02 05:37 WBC (4.0-10.5) K/mm3 RBC (4.1-5.6) M/mm3 Hgb (12.5-18.0) gm/dl Hct (42-50) % MCV (78-100) fl MCH (26-32) pg MCHC (32-36) g/dl RDW (11.5-14.0) % Plt Count (150-450) K/mm3 MPV (7.5-11.0) fl Gran % (36.0-66.0) % Eos # (Auto) (0-0.5) Absolute Lymphs (auto) (1.0-4.6) Absolute Monos (auto) (0.0-1.3) Lymphocytes % (24.0-44.0) % Monocytes % (0.0-12.0) % Eosinophils % (0.00-5.0) % Basophils % (0.0-0.4) % Absolute Granulocytes (1.4-6.9) Basophils # (0-0.4) PT (9.4-12.5) SECONDS INR (0.8-3.0) APTT (25.1-36.5) SECONDS Sodium (137-145) mmol/L Potassium (3.5-5.1) mmol/L Chloride (98-107) mmol/L Carbon Dioxide (22-30) mmol/L Anion Gap (5-15) MEQ/L BUN (9-20) mg/dL Creatinine (0.66-1.25) mg/dL Estimated GFR ML/MIN Glucose (74-106) mg/dL POC Glucometer 257 H (74 to 106) mg/dL Lactic Acid (0.4-2.0) Calcium (8.4-10.2) mg/dL Magnesium (1.6-2.3) mg/dL Total Bilirubin (0.2-1.3) mg/dL AST (17-59) U/L ALT (0-50) U/L Alkaline Phosphatase (38-126) U/L Troponin I < 0.012 < 0.012 (0.000-0.034) ng/mL NT-Pro-B Natriuret Pep (0-900) pg/mL Serum Total Protein (6.3-8.2) g/dL Albumin (3.5-5.0) g/dL Lipase (23-300) U/L Urinalys Dipstick Clnc Urine Color (YELLOW) Urine Appearance (CLEAR) Urine pH (5-6) Ur Specific [place] (1.005-1.025) POC Urine Protein Conf (Negative) Urine Ketones (NEGATIVE) Urine Nitrite (NEGATIVE) Urine Bilirubin (NEGATIVE) Urine Urobilinogen (0-1) mg/dL Urine Leukocytes (NEGATIVE) Urine WBC (Auto) (0-5) /HPF Urine RBC (Auto) (0-2) /HPF U Hyaline Cast (Auto) (0-2) /LPF U Epithel Cells (Auto) (FEW) /HPF Urine Bacteria (Auto) (NEGATIVE) /HPF Urine RBC (0-5) Froylan/ul Urine Sperm (Auto) (NEGATIVE) /HPF Ur Culture Indicated? Urine Glucose (NEGATIVE) mg/dL Influenza Type A Ag (NEGATIVE) Influenza Type B Ag (NEGATIVE) RSV (PCR) (Negative) SARS-CoV-2 (PCR) (NEGATIVE) 09/17/21 09/17/21 09/17/21 Range/Units 05:37 05:37 07:30 WBC 5.9 (4.0-10.5) K/mm3 RBC 4.47 (4.1-5.6) M/mm3 Hgb 13.7 (12.5-18.0) gm/dl Hct 42.2 (42-50) % MCV 94.4 (78-100) fl MCH 30.6 (26-32) pg MCHC 32.5 (32-36) g/dl RDW 13.1 (11.5-14.0) % Plt Count 179 (150-450) K/mm3 MPV 13.0 H (7.5-11.0) fl Gran % 71.0 H (36.0-66.0) % Eos # (Auto) 0.44 (0-0.5) Absolute Lymphs (auto) 0.79 L (1.0-4.6) Absolute Monos (auto) 0.44 (0.0-1.3) Lymphocytes % 13.5 L (24.0-44.0) % Monocytes % 7.5 (0.0-12.0) % Eosinophils % 7.5 H (0.00-5.0) % Basophils % 0.5 (0.0-0.4) % Absolute Granulocytes 4.17 (1.4-6.9) Basophils # 0.03 (0-0.4) PT (9.4-12.5) SECONDS INR (0.8-3.0) APTT (25.1-36.5) SECONDS Sodium 135 L (137-145) mmol/L Potassium 4.6 (3.5-5.1) mmol/L Chloride 103 (98-107) mmol/L Carbon Dioxide 24 (22-30) mmol/L Anion Gap 13.0 (5-15) MEQ/L BUN 14 (9-20) mg/dL Creatinine 0.91 (0.66-1.25) mg/dL Estimated GFR > 60.0 ML/MIN Glucose 283 H (74-106) mg/dL POC Glucometer 248 H (74 to 106) mg/dL Lactic Acid (0.4-2.0) Calcium 9.1 (8.4-10.2) mg/dL Magnesium (1.6-2.3) mg/dL Total Bilirubin 0.50 (0.2-1.3) mg/dL AST 24 (17-59) U/L ALT 18 (0-50) U/L Alkaline Phosphatase 171 H (38-126) U/L Troponin I (0.000-0.034) ng/mL NT-Pro-B Natriuret Pep (0-900) pg/mL Serum Total Protein 7.2 (6.3-8.2) g/dL Albumin 4.0 (3.5-5.0) g/dL Lipase (23-300) U/L Urinalys Dipstick Clnc Urine Color (YELLOW) Urine Appearance (CLEAR) Urine pH (5-6) Ur Specific [place] (1.005-1.025) POC Urine Protein Conf (Negative) Urine Ketones (NEGATIVE) Urine Nitrite (NEGATIVE) Urine Bilirubin (NEGATIVE) Urine Urobilinogen (0-1) mg/dL Urine Leukocytes (NEGATIVE) Urine WBC (Auto) (0-5) /HPF Urine RBC (Auto) (0-2) /HPF U Hyaline Cast (Auto) (0-2) /LPF U Epithel Cells (Auto) (FEW) /HPF Urine Bacteria (Auto) (NEGATIVE) /HPF Urine RBC (0-5) Froylan/ul Urine Sperm (Auto) (NEGATIVE) /HPF Ur Culture Indicated? Urine Glucose (NEGATIVE) mg/dL Influenza Type A Ag (NEGATIVE) Influenza Type B Ag (NEGATIVE) RSV (PCR) (Negative) SARS-CoV-2 (PCR) (NEGATIVE) 09/17/21 Range/Units 08:28 WBC (4.0-10.5) K/mm3 RBC (4.1-5.6) M/mm3 Hgb (12.5-18.0) gm/dl Hct (42-50) % MCV (78-100) fl MCH (26-32) pg MCHC (32-36) g/dl RDW (11.5-14.0) % Plt Count (150-450) K/mm3 MPV (7.5-11.0) fl Gran % (36.0-66.0) % Eos # (Auto) (0-0.5) Absolute Lymphs (auto) (1.0-4.6) Absolute Monos (auto) (0.0-1.3) Lymphocytes % (24.0-44.0) % Monocytes % (0.0-12.0) % Eosinophils % (0.00-5.0) % Basophils % (0.0-0.4) % Absolute Granulocytes (1.4-6.9) Basophils # (0-0.4) PT (9.4-12.5) SECONDS INR (0.8-3.0) APTT (25.1-36.5) SECONDS Sodium (137-145) mmol/L Potassium (3.5-5.1) mmol/L Chloride (98-107) mmol/L Carbon Dioxide (22-30) mmol/L Anion Gap (5-15) MEQ/L BUN (9-20) mg/dL Creatinine (0.66-1.25) mg/dL Estimated GFR ML/MIN Glucose (74-106) mg/dL POC Glucometer 272 H (74 to 106) mg/dL Lactic Acid (0.4-2.0) Calcium (8.4-10.2) mg/dL Magnesium (1.6-2.3) mg/dL Total Bilirubin (0.2-1.3) mg/dL AST (17-59) U/L ALT (0-50) U/L Alkaline Phosphatase (38-126) U/L Troponin I (0.000-0.034) ng/mL NT-Pro-B Natriuret Pep (0-900) pg/mL Serum Total Protein (6.3-8.2) g/dL Albumin (3.5-5.0) g/dL Lipase (23-300) U/L Urinalys Dipstick Clnc Urine Color (YELLOW) Urine Appearance (CLEAR) Urine pH (5-6) Ur Specific [place] (1.005-1.025) POC Urine Protein Conf (Negative) Urine Ketones (NEGATIVE) Urine Nitrite (NEGATIVE) Urine Bilirubin (NEGATIVE) Urine Urobilinogen (0-1) mg/dL Urine Leukocytes (NEGATIVE) Urine WBC (Auto) (0-5) /HPF Urine RBC (Auto) (0-2) /HPF U Hyaline Cast (Auto) (0-2) /LPF U Epithel Cells (Auto) (FEW) /HPF Urine Bacteria (Auto) (NEGATIVE) /HPF Urine RBC (0-5) Froylan/ul Urine Sperm (Auto) (NEGATIVE) /HPF Ur Culture Indicated? Urine Glucose (NEGATIVE) mg/dL Influenza Type A Ag (NEGATIVE) Influenza Type B Ag (NEGATIVE) RSV (PCR) (Negative) SARS-CoV-2 (PCR) (NEGATIVE) Micro Results-Entire Visit: Accuchecks Date 09/17/21 Date 09/17/21 Date 09/16/21 Date 09/16/21 Date 09/16/21 Time 08:28 Time 07:30 Time 19:17 Time 18:00 Time 17:46 - Radiology Exams Ordered Rad Exams-Entire Visit: Radiology Procedures Category Date Time Status CHEST 1 VIEW (PORTABLE) Stat Exams 09/16/21 17:34 Completed HEAD WITHOUT CONTRAST [CT] Stat Exams 09/16/21 17:21 Completed - Procedures and Test Procedures and Tests throughout Hospitalization: Therapy Orders & Screens 09/16/21 21:23 Respiratory Therapy Assessment DAILY Comment: Diagnosis: altered mkental status - Discharge Disposition: Home, Self-Care Condition: Good Prescriptions: Continue Budesonide [Budesonide Dr] 3 mg PO DAILY Losartan Potassium 25 mg PO DAILY Hydrocodone/Acetaminophen [Hydrocodone-Acetamin 10-325 mg] 10 tab PO BIDPRN PRN PRN Reason: Pain PANTOPRAZOLE 40 mg Tablet [Protonix 40MG Tablet] 40 mg PO DAILY Insulin Detemir [Levemir] 11 units SQ HS Clopidogrel Bisulfate 75 mg [PLAVIX 75 MG Tablet] 75 mg PO DAILY Albuterol Sulfate [Albuterol Sulfate Hfa] 2 puff IH QID Insulin Aspart (Niacinamide) [Fiasp 100 Unit/ml Vial] 18 unit SQ BREAKFAST Dabigatran Etexilate Mesylate [Pradaxa] 75 mg PO DAILY Dronedarone Hydrochloride 400* [Multaq 400 MG] 200 mg PO BID Insulin Aspart (Niacinamide) [Fiasp 100 Unit/ml Vial] 18 units SQ DAILY Insulin Aspart (Niacinamide) [Fiasp 100 Unit/ml Vial] 21 units SQ EVENING MEAL Follow up with: ROSANNA KYLE MD [Primary Care Provider] -
[2021-09-17] MEDS ORDERED: NON-FORMULARY ITEM (Insulin Aspart (Niacinamide) [Fiasp 100 Unit/Ml Vial] 100 UNIT/ML Vial SQ SCH ×2 (10:00→18:00)
[2021-09-17] MEDS ORDERED: PRADAXA 75 MG PO SCH (10:00)
[2021-09-17] MEDS ORDERED: ENOXAPARIN SODIUM SQ SCH (10:00)
[2021-09-17] MEDS ORDERED: PROTONIX 40 MG IV IV SCH (10:00)
[2021-09-17] MEDS ORDERED: MEDICATION INTERVENTION MC SCH (10:00)
[2021-09-17] MEDS ORDERED: NON-FORMULARY ITEM (Budesonide [Budesonide Dr] 3 MG Capdr...Er) PO SCH (10:00)
[2021-09-17] MEDS ORDERED: Protonix 40MG Tablet PO SCH (10:00)
[2021-09-17] MEDS ORDERED: NON-FORMULARY ITEM (Losartan Potassium [Losartan Potassium] 25 MG Tablet) PO SCH (10:00)
[2021-09-17] MEDS ORDERED: PLAVIX Tablet PO SCH (10:00)
[2021-09-17] MEDS ORDERED: Cozaar 50 MG PO SCH (10:00)
[2021-09-17] MEDS ORDERED: Ventolin Hfa MDI IH SCH (10:00)
[2021-09-17] MEDS ORDERED: Multaq 400 MG PO SCH (10:00)
[2021-09-17] MEDS ORDERED: PATIENT OWN MEDICATION SQ PRN (10:41)
[2021-09-17] MEDS ORDERED: VENTOLIN COMMON CANISTER IH SCH (11:00)
[2021-09-17 11:13] VITALS: BP 152/72; PULSE 51
[2021-09-17] MEDS ORDERED: PATIENT OWN MEDICATION SQ SCH ×2 (12:00→18:00)
[2021-09-17] MEDS ORDERED: PATIENT OWN MEDICATION SQ ONE (12:00)
[2021-09-18] MEDS ORDERED: PATIENT OWN MEDICATION SQ SCH (08:00)
[2021-09-18] MEDS ORDERED: NON-FORMULARY ITEM (Insulin Aspart (Niacinamide) [Fiasp 100 Unit/Ml Vial] 100 UNIT/ML Vial SQ SCH (08:00)
== END 2021-09-17 15:25 | disposition home or self-care (01) ==
LOC: ED 17:20 → MED SURG 20:01
PROVIDERS: ADMIT Family Medicine; ATTEND General Practice
DX: E16.2 Hypoglycemia, unspecified (principal); R41.82 Altered mental status, unspecified; E11.9 Type 2 diabetes mellitus without complications; I25.10 Atherosclerotic heart disease of native coronary artery without angina pectoris; I10 Essential (primary) hypertension; E78.5 Hyperlipidemia, unspecified; Z79.899 Other long term (current) drug therapy; Z20.828 Contact with and (suspected) exposure to other viral communicable diseases; Z72.0 Tobacco use
CPT/HCPCS: 0241U; 36000; 36415; 70450; 71045; 80053; 81015; 82947; 83605; 83690; 83735; 83880; 84484; 85025; 85610; 85730; 87040; 93005; 96374; 99284; 99291; G0378; A9270-GY

== ENCOUNTER 2022-01-01 13:01 | Observation (INO) | payer MEDICARE ==
[2022-01-01] MEDS ORDERED: PROTONIX 40 MG IV IV ONE ×2 (13:05→13:12)
[2022-01-01] MEDS ORDERED: Sodium Chloride 0.9% 1000 ML 1,000 ML IV STA (13:05)
[2022-01-01] MEDS ORDERED: Zofran 4 MG/2 ML VIAL IV ONE (13:05)
[2022-01-01] MEDS ORDERED: Sodium Chloride 0.9% 1000 ML 1,000 ML ONE (13:12)
[2022-01-01] MEDS ORDERED: Zofran 4 MG/2 ML VIAL ONE (13:12)
[2022-01-01 13:27] LABS: Basophil (Absolute #) 0.07 x10^3/uL (0-0.4); Eosinophil (Absolute #) 0.19 x10^3/uL (0-0.5); Hematocrit 40.1 % (42-50); Hemoglobin 12.6 g/dL (12.5-18.0); Lymphocyte (Absolute #) 0.55 x10^3/uL (1.0-4.6); Lymphocytes % 8.8 % (24.0-44.0); Mean Cell Volume 97.1 fL (78-100); Mean Corpuscular Hemoglobin 30.5 pg (26-32); Mean Corpuscular Hgb Concent. 31.4 g/dL (32-36); Mean Platelet Volume 12.8 fL (7.5-11.0); Monocyte (Absolute #) 0.44 x10^3/uL (0.0-1.3); Neutrophil % 79.9 % (36.0-66.0); Platelet Count 128 x10^3/uL (150-450); Red Blood Count 4.13 x10^6/uL (4.1-5.6); Red Cell Distribution Width 12.8 % (11.5-14.0); White Blood Count 6.3 x10^3/uL (4.0-10.5)
[2022-01-01 13:53] LABS: ALBUMIN 4.1 g/dL (3.5-5.0); ALKALINE PHOSPHATASE 142 U/L (38-126); AMYLASE 52 U/L (30-110); ANION GAP 10.8 MEQ/L (5-15); BLOOD UREA NITROGEN 16 mg/dL (9-20); CHLORIDE 101 mmol/L (98-107); Calcium 9.1 mg/dL (8.4-10.2); Carbon Dioxide 28 mmol/L (22-30); EST GLOMERULAR FILTRATION RATE > 60.0 ML/MIN; Glucose 102 mg/dL (74-106); LIPASE 15 U/L (23-300); Potassium 4.1 mmol/L (3.5-5.1); SGOT/AST 26 U/L (17-59); SGPT/ALT 21 U/L (0-50); SODIUM 135 mmol/L (137-145); Total Protein 6.9 g/dL (6.3-8.2)
--- NOTE | 2022-01-01 14:42 | ERPHSYRPT ---
- History of Present Illness Time Seen by Provider: 01/01/22 13:15 Historian: patient Exam Limitations: no limitations Patient Subjective Stated Complaint: PT states "I do not feel well. I have belly pain and am having a crohn's flair up." Triage Nursing Assessment: PT presented alert and oriented X 3, skin pwd Pt able to speak in clear full sentences. PT has slow speech but clear. Physician History: This is a 66-year-old white male patient who is a insulin-dependent diabetic and has a history of hypertension as well as Crohn's disease and presents with 1 day history of generalized cramping abdominal pain and vomiting this morning. He also states that he has had some numbness in the right upper and right lower extremities yesterday. He currently has no shortness of breath and no chest pain. He does have a history of hyperlipidemia as well as coronary artery disease. He has a history of CVA without residual symptoms. Timing/Duration: yesterday Activities at Onset: none Quality: cramping Abdominal Pain Onset Location: generalized abdomen Pain Radiation: no radiation Severity of Pain-Max: moderate Severity of Pain-Current: mild (To moderate) Modifying Factors: Improves With: vomiting Associated Symptoms: denies symptoms, nausea, vomiting, weakness Previous symptoms: same symptoms as today, no recent treatment Allergies/Adverse Reactions: No Known Drug Allergies Allergy (Verified 09/16/21 20:15) Home Medications: Albuterol Sulfate [Albuterol Sulfate Hfa] 2 puff IH QID 10/24/20 [History] Budesonide [Budesonide Dr] 3 mg PO DAILY 10/24/20 [History] Clopidogrel Bisulfate [PLAVIX Tablet] 75 mg PO DAILY 10/24/20 [History] Hydrocodone/Acetaminophen [Hydrocodone-Acetamin 10-325 mg] 10 tab PO BIDPRN PRN 10/24/20 [History] Insulin Detemir [Levemir] 11 units SQ HS 10/24/20 [History] PANTOPRAZOLE 40 mg Tablet [Protonix 40MG Tablet] 40 mg PO DAILY 10/24/20 [History] Dabigatran Etexilate Mesylate [Pradaxa] 75 mg PO DAILY 09/16/21 [History] Dronedarone Hydrochloride 400* [Multaq 400 MG] 200 mg PO BID 09/16/21 [History] Insulin Aspart (Niacinamide) [Fiasp 100 Unit/ml Vial] 18 unit SQ BREAKFAST 09/16/21 [History] Insulin Aspart (Niacinamide) [Fiasp 100 Unit/ml Vial] 18 units SQ DAILY 09/16/21 [History] Insulin Aspart (Niacinamide) [Fiasp 100 Unit/ml Vial] 21 units SQ EVENING MEAL 09/16/21 [History] Hx Tetanus, Diphtheria Vaccination/Date Given: No (unknown) Hx Influenza Vaccination/Date Given: Yes Hx Pneumococcal Vaccination/Date Given: No Immunizations Up to Date: Yes Travel Risk - International Travel Have you traveled outside of the country in past 3 weeks: No - Coronavirus Screening Are you exhibiting any of the following symptoms?: Yes Symptoms: Vomiting/Diarrhea Close contact with a COVID-19 positive Pt in past 14-21 Days: No - Vaccine Status Have you recieved a Covid-19 vaccination: Yes 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 - Vaccination Dates Date of 2cond Vaccination (if applicable): 2019 Comment: plus boosters - Review of Systems Constitutional: No Symptoms Eyes: No Symptoms, Foreign Body Sensation Respiratory: No Symptoms Cardiac: No Symptoms Abdominal/Gastrointestinal: Abdominal Pain, Nausea, Vomiting, Diarrhea, No Constipation Genitourinary Symptoms: No Symptoms Musculoskeletal: No Symptoms Skin: No Symptoms Neurological: No Symptoms Psychological: No Symptoms Endocrine: No Symptoms Hematologic/Lymphatic: No Symptoms Immunological/Allergic: No Symptoms All Other Systems: Reviewed and Negative - Past Medical History Pertinent Past Medical History: Yes Neurological History: Stroke ENT History: Other Cardiac History: Coronary Artery Disease Respiratory History: No Pertinent History Endocrine Medical History: Diabetes Type II Musculoskeletal History: Arthritis GI Medical History: Crohns Disease History: No Pertinent History Psycho-Social History: No Pertinent History Male Reproductive Disorders: Prostate Problems Other Medical History: retinopathy no residual on stroke. - Past Surgical History Past Surgical History: Yes Neuro Surgical History: No Pertinent History Cardiac: CABG Respiratory: No Pertinent History Gastrointestinal: No Pertinent History Genitourinary: No Pertinent History Musculoskeletal: Orthopedic Surgery Male Surgical History: No Pertinent History Other Surgical History: 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. intestinal resection. appi - Social History Smoking Status: Former smoker How long have you smoked: years Exposure to second hand smoke: Yes Drug Use: none Patient Lives Alone: Yes - Nursing Vital Signs Nursing Vital Signs: Initial Vital Signs Temperature 98.6 F 01/01/22 13:02 Pulse Rate 60 01/01/22 13:02 Respiratory Rate 18 01/01/22 13:02 Blood Pressure 134/64 01/01/22 13:02 O2 Sat by Pulse Oximetry 98 01/01/22 13:02 Pain Scale Pain Intensity 4 - Physical Exam General Appearance: no apparent distress, alert, anxiety Eye Exam: PERRL/EOMI, eyes nml inspection Ears, Nose, Throat Exam: normal ENT inspection, moist mucous membranes Neck Exam: normal inspection, non-tender, supple, full range of motion Respiratory Exam: normal breath sounds, lungs clear, airway intact, No chest tenderness, No respiratory distress Cardiovascular Exam: regular rate/rhythm, normal heart sounds, normal peripheral pulses Gastrointestinal/Abdomen Exam: soft, normal bowel sounds, tenderness (Generalized diffuse), guarding, No rebound Rectal Exam: not done Back Exam: normal inspection, normal range of motion, No CVA tenderness, No vertebral tenderness Extremity Exam: normal inspection, normal range of motion, pelvis stable Neurologic Exam: alert, oriented x 3, cooperative, apartment manager II-XII nml as tested, normal mood/affect, nml cerebellar function, nml station & gait, sensation nml Skin Exam: normal color, warm, dry Lymphatic Exam: No adenopathy SpO2 Interpretation: normal SpO2: 98 O2 Delivery: Room Air - Course Nursing assessment & vital signs reviewed: Yes Ordered Tests: Active Orders 24 hr Category Date Time Status IV Insertion STAT Care 01/01/22 13:05 Active cath [Cath for Residual-In & Out] STAT Care 01/01/22 16:56 Active ABDOMEN AND PELVIS W/0 CONTRAS [CT] Stat Exams 01/01/22 14:30 Completed HEAD WITHOUT CONTRAST [CT] Stat Exams 01/01/22 14:30 Completed AMYLASE Stat Lab 01/01/22 13:25 Completed CBC W DIFF Stat Lab 01/01/22 13:25 Completed CMP Stat Lab 01/01/22 13:25 Completed LIPASE Stat Lab 01/01/22 13:25 Completed Lactic Acid Stat Lab 01/01/22 13:30 Completed UA W/RFX CULTURE Stat Lab 01/01/22 15:49 Completed Medication Summary Discontinued Medications Generic Name Dose Route Start Last Admin Trade Name Freq PRN Reason Stop Dose Admin Sodium Chloride 1,000 mls @ 999 mls/hr 01/01/22 13:05 01/01/22 14:16 Sodium Chloride 0.9% 1000 Ml IV 01/01/22 14:05 Infused .Q1H1M STA Infusion Sodium Chloride Confirm 01/01/22 13:12 Sodium Chloride 0.9% 1000 Ml Administered 01/01/22 13:13 Dose 1,000 mls @ ud .ROUTE .STK-MED ONE Ondansetron HCl 4 mg 01/01/22 13:05 01/01/22 13:15 Ondansetron Hcl 4 Mg/2 Ml Vial IV 01/01/22 13:06 4 mg STAT ONE Administration Ondansetron HCl Confirm 01/01/22 13:12 Ondansetron Hcl 4 Mg/2 Ml Vial Administered 01/01/22 13:13 Dose 4 mg .ROUTE .STK-MED ONE Pantoprazole Sodium 40 mg 01/01/22 13:05 01/01/22 13:15 Pantoprazole 40 Mg Vial IV 01/01/22 13:06 40 mg STAT ONE Administration Pantoprazole Sodium Confirm 01/01/22 13:12 Pantoprazole 40 Mg Vial Administered 01/01/22 13:13 Dose 40 mg IV .STK-MED ONE Lab/Rad Data: Laboratory Result Diagrams 01/01/22 13:25 01/01/22 13:25 Laboratory Results 01/01/22 01/01/22 01/01/22 Range/Units 15:49 13:30 13:25 WBC (4.0-10.5) x10^3/uL RBC (4.1-5.6) x10^6/uL Hgb (12.5-18.0) g/dL Hct (42-50) % MCV (78-100) fL MCH (26-32) pg MCHC (32-36) g/dL RDW (11.5-14.0) % Plt Count (150-450) x10^3/uL MPV (7.5-11.0) fL Gran % (36.0-66.0) % Immature Gran % (Auto) (0.00-0.4) % Nucleat RBC Rel Count (0.00-0.1) % Eos # (Auto) (0-0.5) x10^3/uL Immature Gran # (Auto) (0.00-0.03) x10^3u/L Absolute Lymphs (auto) (1.0-4.6) x10^3/uL Absolute Monos (auto) (0.0-1.3) x10^3/uL Absolute Nucleated RBC (0.00-0.01) x10^3u/L Lymphocytes % (24.0-44.0) % Monocytes % (0.0-12.0) % Eosinophils % (0.00-5.0) % Basophils % (0.0-0.4) % Absolute Granulocytes (1.4-6.9) x10^3/uL Basophils # (0-0.4) x10^3/uL Sodium 135 L (137-145) mmol/L Potassium 4.1 (3.5-5.1) mmol/L Chloride 101 (98-107) mmol/L Carbon Dioxide 28 (22-30) mmol/L Anion Gap 10.8 (5-15) MEQ/L BUN 16 (9-20) mg/dL Creatinine 0.80 (0.66-1.25) mg/dL Estimated GFR > 60.0 ML/MIN Glucose 102 (74-106) mg/dL Lactic Acid 1.2 (0.4-2.0) Calcium 9.1 (8.4-10.2) mg/dL Total Bilirubin 0.60 (0.2-1.3) mg/dL AST 26 (17-59) U/L ALT 21 (0-50) U/L Alkaline Phosphatase 142 H (38-126) U/L Serum Total Protein 6.9 (6.3-8.2) g/dL Albumin 4.1 (3.5-5.0) g/dL Amylase 52 (30-110) U/L Lipase 15 L (23-300) U/L Urinalys Dipstick Clnc MAIN LAB Urine Color YELLOW (YELLOW) Urine Appearance CLEAR (CLEAR) Urine pH 6.0 (5-6) Ur Specific [place] 1.015 (1.005-1.025) POC Urine Protein Conf NEGATIVE (Negative) Urine Ketones NEGATIVE (NEGATIVE) Urine Nitrite NEGATIVE (NEGATIVE) Urine Bilirubin NEGATIVE (NEGATIVE) Urine Urobilinogen 0.2 (0-1) mg/dL Urine Leukocytes NEGATIVE (NEGATIVE) Urine WBC (Auto) NONE (0-5) /HPF Urine RBC (Auto) NONE (0-2) /HPF U Epithel Cells (Auto) NONE (FEW) /HPF Urine Bacteria (Auto) NONE (NEGATIVE) /HPF Urine RBC NEGATIVE (0-5) Froylan/ul Urine Mucus (Auto) SLIGHT (NEGATIVE) /HPF Ur Culture Indicated? NO Urine Glucose NEGATIVE (NEGATIVE) mg/dL Slides for Path Review 01/01/22 Range/Units 13:25 WBC 6.3 (4.0-10.5) x10^3/uL RBC 4.13 (4.1-5.6) x10^6/uL Hgb 12.6 (12.5-18.0) g/dL Hct 40.1 L (42-50) % MCV 97.1 (78-100) fL MCH 30.5 (26-32) pg MCHC 31.4 L (32-36) g/dL RDW 12.8 (11.5-14.0) % Plt Count 128 L (150-450) x10^3/uL MPV 12.8 H (7.5-11.0) fL Gran % 79.9 H (36.0-66.0) % Immature Gran % (Auto) 0.2 (0.00-0.4) % Nucleat RBC Rel Count 0.0 (0.00-0.1) % Eos # (Auto) 0.19 (0-0.5) x10^3/uL Immature Gran # (Auto) 0.01 (0.00-0.03) x10^3u/L Absolute Lymphs (auto) 0.55 L (1.0-4.6) x10^3/uL Absolute Monos (auto) 0.44 (0.0-1.3) x10^3/uL Absolute Nucleated RBC 0.00 (0.00-0.01) x10^3u/L Lymphocytes % 8.8 L (24.0-44.0) % Monocytes % 7.0 (0.0-12.0) % Eosinophils % 3.0 (0.00-5.0) % Basophils % 1.1 (0.0-0.4) % Absolute Granulocytes 5.00 (1.4-6.9) x10^3/uL Basophils # 0.07 (0-0.4) x10^3/uL Sodium (137-145) mmol/L Potassium (3.5-5.1) mmol/L Chloride (98-107) mmol/L Carbon Dioxide (22-30) mmol/L Anion Gap (5-15) MEQ/L BUN (9-20) mg/dL Creatinine (0.66-1.25) mg/dL Estimated GFR ML/MIN Glucose (74-106) mg/dL Lactic Acid (0.4-2.0) Calcium (8.4-10.2) mg/dL Total Bilirubin (0.2-1.3) mg/dL AST (17-59) U/L ALT (0-50) U/L Alkaline Phosphatase (38-126) U/L Serum Total Protein (6.3-8.2) g/dL Albumin (3.5-5.0) g/dL Amylase (30-110) U/L Lipase (23-300) U/L Urinalys Dipstick Clnc Urine Color (YELLOW) Urine Appearance (CLEAR) Urine pH (5-6) Ur Specific [place] (1.005-1.025) POC Urine Protein Conf (Negative) Urine Ketones (NEGATIVE) Urine Nitrite (NEGATIVE) Urine Bilirubin (NEGATIVE) Urine Urobilinogen (0-1) mg/dL Urine Leukocytes (NEGATIVE) Urine WBC (Auto) (0-5) /HPF Urine RBC (Auto) (0-2) /HPF U Epithel Cells (Auto) (FEW) /HPF Urine Bacteria (Auto) (NEGATIVE) /HPF Urine RBC (0-5) Froylan/ul Urine Mucus (Auto) (NEGATIVE) /HPF Ur Culture Indicated? Urine Glucose (NEGATIVE) mg/dL Slides for Path Review YES - Progress Progress: pain not gone completely, re-examined Progress Note: 01/01/22 16:20 CAT scan of the head without contrast shows a nonacute senile brain with a remote lacunar infarct. There is no acute intracranial abnormality. CAT scan of the abdomen pelvis without contrast shows mild rectal fecal impaction. There is markedly distended urinary bladder otherwise there are chronic findings noted. 01/01/22 17:04 Medical decision making: The original plan was to discharge the patient to home because of work-up appears negative. However, the patient's daughter felt that he had another "spell" that is described as going limp. I did not see that while he was here and at the time we were going to discharge when I was reviewing the work-up results with him and his son, he he was neurologically intact. However, the daughter called and then was a little upset because she was concerned that she would not know what to do other than bring him back into the hospital if he had another spell. I called Dr. Kyle and we decided to place him in observation with neurochecks. Discussed with : Shorty Counseled pt/family regarding: lab results, diagnosis, need for follow-up, rad results - Departure Departure Disposition: Observation Clinical Impression: Vomiting, TIA (transient ischemic attack), Bladder distention Condition: Stable Critical Care Time: No Referrals: ROSANNA KYLE MD [Primary Care Provider] - Follow up/PCP as directed
--- NOTE | 2022-01-01 15:14 | XRAY ---
Indication: Weakness and loss of balance. History of Crohn's disease. Multiple contiguous axial images obtained through the head without contrast. Comparison: September 16, 2021 Again age-appropriate global atrophy, mild periventricular degenerative micro-ischemia, and remote lacunar infarcts left thalamus/right basal ganglia. No acute intracranial hemorrhage, abnormal extra-axial fluid collection, or mass effect. Fourth ventricle is midline without hydrocephalus. Bony calvarium intact. Again mild mucosal thickening both maxillary and lesser degree both ethmoid sinuses. Mastoid air cells are clear. Impression: Continued nonacute senile brain with incidental remote lacunar infarcts and paranasal sinus disease.
--- NOTE | 2022-01-01 15:19 | XRAY ---
Indication: Weakness and loss of balance. History Crohn's disease. Multiple contiguous axial images obtained through the abdomen and pelvis without contrast. Comparison: April 25, 2015 Lung bases again demonstrates pulmonary emphysema with scattered fibrosis/scarring and left base calcified granulomas. Heart not enlarged. Stomach distended with food/fluid. Noncontrasted stomach and bowel loops nonobstructed. Appendectomy reported. There is now mild diffuse scattered colonic fecal debris including mild rectal impaction. Urinary bladder is now markedly distended concerning for outlet obstruction versus neurogenic bladder. New 1 right renal and 2 left renal nonobstructing punctate calculi. No free fluid/air. Gallbladder contracted without gallstones. Remaining liver, pancreas, spleen, adrenal glands, kidneys, ureters, and bladder are unremarkable for noncontrast exam. There remains heavy scattered aortoiliac calcifications without AAA. Osseous structures intact again with osteopenia and progressive worsening mild/moderate degenerative changes throughout the spine. Also new remote-appearing superior T11/inferior L1 endplate fractures with approximately 25% height loss. No ventral or inguinal hernias. Impression: 1. New mild fecal stasis with mild rectal impaction. 2. New markedly distended urinary bladder. Rule out outlet obstruction versus neurogenic bladder. 3. New nonobstructing bilateral renal micro-calculi. 4. Chronic findings including pulmonary emphysema, pulmonary fibrosis/scarring, arteriosclerotic disease, chronic bony findings, and old granulomatous disease.
[2022-01-01 15:53] LABS: Slide Review 1 YES
[2022-01-01 16:12] LABS: Mucus SLIGHT /HPF (NEGATIVE)
[2022-01-01 16:13] LABS: Appearance CLEAR (CLEAR); Bilirubin NEGATIVE (NEGATIVE); Dipstick done @ ? MAIN LAB; Glucose NEGATIVE (NEGATIVE); Ketones NEGATIVE (NEGATIVE); Nitrite NEGATIVE (NEGATIVE); Protein,Urine Dip NEGATIVE (Negative); RBC NEGATIVE Ery/ul (0-5); Specific Gravity 1.015 (1.005-1.025); Urobilinogen 0.2 mg/dL (0-1)
[2022-01-01 16:57] LABS: Urine Cultured Indicated? NO
[2022-01-01 18:39] LABS: INFLUENZA A NEGATIVE (NEGATIVE); INFLUENZA B NEGATIVE (NEGATIVE); RESPIRATORY SYNCTIAL VIRUS NEGATIVE (Negative); SARS-CoV-2 Xpert Express NEGATIVE (NEGATIVE)
[2022-01-01] MEDS ORDERED: TYLENOL 325 MG PO PRN (18:49)
[2022-01-01] MEDS ORDERED: PROVENTIL 2.5 MG/3 ML NEB IH PRN (19:11)
[2022-01-01] MEDS: Sodium Chloride 0.9% 1000 ML 1,000 ML IV SCH (19:25)
--- NOTE | 2022-01-01 19:49 | PCM.HP ---
History of Present Illness - Chief Complaint Chief Complaint: Vomiting History of Present Illness: is a 66 year old male patient who is a insulin-dependent diabetic and has a history of hypertension as well as Crohn's disease and presents with 1 day history of generalized cramping abdominal pain and vomiting this morning. He also states that he has had some numbness in the right upper and right lower extremities yesterday. He currently has no shortness of breath and no chest pain. He does have a history of hyperlipidemia as well as coronary artery disease. He has a history of CVA without residual symptoms. Timing/Duration: yesterday Activities at Onset: none Quality: cramping Abdominal Pain Onset Location: generalized abdomen Pain Radiation: no radiation Severity of Pain-Max: moderate Severity of Pain-Current: mild (To moderate) Modifying Factors: Improves With: vomiting Associated Symptoms: denies symptoms, nausea, vomiting, weakness Previous symptoms: same symptoms as today, no recent treatment - Review of Systems Constitutional: No Fever, No Chills Eyes: No Symptoms Ears, Nose, & Throat: No Symptoms Respiratory: No Cough, No Short Of Breath Cardiac: No Chest Pain, No Edema, No Syncope Abdominal/Gastrointestinal: Abdominal Pain, Nausea, Vomiting, Diarrhea Genitourinary Symptoms: No Dysuria Musculoskeletal: No Back Pain, No Neck Pain Skin: No Rash Neurological: No Dizziness, No Focal Weakness, No Sensory Changes Psychological: No Symptoms Endocrine: No Symptoms Hematologic/Lymphatic: No Symptoms Immunological/Allergic: No Symptoms Medications & Allergies Home Medications: Home Medication List Albuterol Sulfate [Albuterol Sulfate Hfa] 2 puff IH QID 10/24/20 [History Confirmed 01/01/22] Budesonide [Budesonide Dr] 3 mg PO DAILY 10/24/20 [History Confirmed 01/01/22] Clopidogrel Bisulfate [PLAVIX Tablet] 75 mg PO DAILY 10/24/20 [History Confirmed 01/01/22] Hydrocodone/Acetaminophen [Hydrocodone-Acetamin 10-325 mg] 10 tab PO BIDPRN PRN 10/24/20 [History Confirmed 01/01/22] Insulin Detemir [Levemir] 11 units SQ HS 10/24/20 [History Confirmed 01/01/22] PANTOPRAZOLE 40 mg Tablet [Protonix 40MG Tablet] 40 mg PO DAILY 10/24/20 [History Confirmed 01/01/22] Dabigatran Etexilate Mesylate [Pradaxa] 75 mg PO DAILY 09/16/21 [History Confirmed 01/01/22] Dronedarone Hydrochloride 400* [Multaq 400 MG] 200 mg PO BID 09/16/21 [History Confirmed 01/01/22] Insulin Aspart (Niacinamide) [Fiasp 100 Unit/ml Vial] 18 unit SQ BREAKFAST 09/16/21 [History Confirmed 01/01/22] Insulin Aspart (Niacinamide) [Fiasp 100 Unit/ml Vial] 18 units SQ DAILY 09/16/21 [History Confirmed 01/01/22] Insulin Aspart (Niacinamide) [Fiasp 100 Unit/ml Vial] 21 units SQ EVENING MEAL 09/16/21 [History Confirmed 01/01/22] Allergies/Adverse Reactions: Allergies Allergy/AdvReac Type Severity Reaction Status Date / Time No Known Drug Allergies Allergy Verified 09/16/21 20:15 - Past Medical History Past Medical History: Yes Neurological History: Stroke ENT History: Other Cardiac History: Coronary Artery Disease Respiratory History: No Pertinent History Endocrine Medical History: Diabetes Type II Musculoskelatal History: Arthritis GI Medical History: Crohns Disease History: No Pertinent History Pyscho-Social History: No Pertinent History Male Reproductive Disorders: Prostate Problems Comment: retinopathy no residual on stroke. - Past Surgical History Past Surgical History: Yes Neuro Surgical History: No Pertinent History Cardiac History: CABG Respiratory Surgery: No Pertinent History GI Surgical History: No Pertinent History Genitourinary Surgical Hx: No Pertinent History Musculskeletal Surgical Hx: Orthopedic Surgery Male Surgical History: No Pertinent History Other Surgical History: 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. intestinal resection. appi - Social History Smoking Status: Former smoker How long have you smoked: years Exposure to second hand smoke: Yes Alcohol: Rarely Drug Use: none - Physical Exam Vital Signs: Vital Signs - 24 hr Temp Pulse Resp BP Pulse Ox 01/01/22 19:34 98 01/01/22 19:05 89 18 98 01/01/22 17:10 98 01/01/22 17:00 170/80 01/01/22 16:28 98.5 F 65 18 148/72 96 01/01/22 14:15 98.6 F 62 20 154/70 98 01/01/22 13:02 98.6 F 60 18 134/64 98 General Appearance: no apparent distress, alert Neurologic Exam: alert, oriented x 3, cooperative, normal mood/affect, nml cerebellar function, nml station & gait, sensation nml, No motor deficits Eye Exam: PERRL/EOMI, eyes nml inspection Ears, Nose, Throat Exam: normal ENT inspection, TMs normal, pharynx normal, moist mucous membranes Neck Exam: normal inspection, non-tender, supple, full range of motion Respiratory Exam: normal breath sounds, lungs clear, No respiratory distress Cardiovascular Exam: regular rate/rhythm, normal heart sounds, normal peripheral pulses Gastrointestinal/Abdomen Exam: soft, normal bowel sounds, No tenderness, No mass Back Exam: normal inspection, normal range of motion, No CVA tenderness, No vertebral tenderness Extremity Exam: normal inspection, normal range of motion, pelvis stable Skin Exam: normal color, warm, dry, No rash Lymphatic Exam: No adenopathy Results - Labs Lab/Micro Results: Lab Results-Last 24 Hours 01/01/22 01/01/22 01/01/22 Range/Units 13:25 13:25 13:30 WBC 6.3 (4.0-10.5) x10^3/uL RBC 4.13 (4.1-5.6) x10^6/uL Hgb 12.6 (12.5-18.0) g/dL Hct 40.1 L (42-50) % MCV 97.1 (78-100) fL MCH 30.5 (26-32) pg MCHC 31.4 L (32-36) g/dL RDW 12.8 (11.5-14.0) % Plt Count 128 L (150-450) x10^3/uL MPV 12.8 H (7.5-11.0) fL Gran % 79.9 H (36.0-66.0) % Immature Gran % (Auto) 0.2 (0.00-0.4) % Nucleat RBC Rel Count 0.0 (0.00-0.1) % Eos # (Auto) 0.19 (0-0.5) x10^3/uL Immature Gran # (Auto) 0.01 (0.00-0.03) x10^3u/L Absolute Lymphs (auto) 0.55 L (1.0-4.6) x10^3/uL Absolute Monos (auto) 0.44 (0.0-1.3) x10^3/uL Absolute Nucleated RBC 0.00 (0.00-0.01) x10^3u/L Lymphocytes % 8.8 L (24.0-44.0) % Monocytes % 7.0 (0.0-12.0) % Eosinophils % 3.0 (0.00-5.0) % Basophils % 1.1 (0.0-0.4) % Absolute Granulocytes 5.00 (1.4-6.9) x10^3/uL Basophils # 0.07 (0-0.4) x10^3/uL Sodium 135 L (137-145) mmol/L Potassium 4.1 (3.5-5.1) mmol/L Chloride 101 (98-107) mmol/L Carbon Dioxide 28 (22-30) mmol/L Anion Gap 10.8 (5-15) MEQ/L BUN 16 (9-20) mg/dL Creatinine 0.80 (0.66-1.25) mg/dL Estimated GFR > 60.0 ML/MIN Glucose 102 (74-106) mg/dL Lactic Acid 1.2 (0.4-2.0) Calcium 9.1 (8.4-10.2) mg/dL Total Bilirubin 0.60 (0.2-1.3) mg/dL AST 26 (17-59) U/L ALT 21 (0-50) U/L Alkaline Phosphatase 142 H (38-126) U/L Serum Total Protein 6.9 (6.3-8.2) g/dL Albumin 4.1 (3.5-5.0) g/dL Amylase 52 (30-110) U/L Lipase 15 L (23-300) U/L Urinalys Dipstick Clnc Urine Color (YELLOW) Urine Appearance (CLEAR) Urine pH (5-6) Ur Specific Orange (1.005-1.025) POC Urine Protein Conf (Negative) Urine Ketones (NEGATIVE) Urine Nitrite (NEGATIVE) Urine Bilirubin (NEGATIVE) Urine Urobilinogen (0-1) mg/dL Urine Leukocytes (NEGATIVE) Urine WBC (Auto) (0-5) /HPF Urine RBC (Auto) (0-2) /HPF U Epithel Cells (Auto) (FEW) /HPF Urine Bacteria (Auto) (NEGATIVE) /HPF Urine RBC (0-5) Froylan/ul Urine Mucus (Auto) (NEGATIVE) /HPF Ur Culture Indicated? Urine Glucose (NEGATIVE) mg/dL Influenza Type A Ag (NEGATIVE) Influenza Type B Ag (NEGATIVE) RSV (PCR) (Negative) SARS-CoV-2 (PCR) (NEGATIVE) Slides for Path Review YES 01/01/22 01/01/22 Range/Units 15:49 17:30 WBC (4.0-10.5) x10^3/uL RBC (4.1-5.6) x10^6/uL Hgb (12.5-18.0) g/dL Hct (42-50) % MCV (78-100) fL MCH (26-32) pg MCHC (32-36) g/dL RDW (11.5-14.0) % Plt Count (150-450) x10^3/uL MPV (7.5-11.0) fL Gran % (36.0-66.0) % Immature Gran % (Auto) (0.00-0.4) % Nucleat RBC Rel Count (0.00-0.1) % Eos # (Auto) (0-0.5) x10^3/uL Immature Gran # (Auto) (0.00-0.03) x10^3u/L Absolute Lymphs (auto) (1.0-4.6) x10^3/uL Absolute Monos (auto) (0.0-1.3) x10^3/uL Absolute Nucleated RBC (0.00-0.01) x10^3u/L Lymphocytes % (24.0-44.0) % Monocytes % (0.0-12.0) % Eosinophils % (0.00-5.0) % Basophils % (0.0-0.4) % Absolute Granulocytes (1.4-6.9) x10^3/uL Basophils # (0-0.4) x10^3/uL Sodium (137-145) mmol/L Potassium (3.5-5.1) mmol/L Chloride (98-107) mmol/L Carbon Dioxide (22-30) mmol/L Anion Gap (5-15) MEQ/L BUN (9-20) mg/dL Creatinine (0.66-1.25) mg/dL Estimated GFR ML/MIN Glucose (74-106) mg/dL Lactic Acid (0.4-2.0) Calcium (8.4-10.2) mg/dL Total Bilirubin (0.2-1.3) mg/dL AST (17-59) U/L ALT (0-50) U/L Alkaline Phosphatase (38-126) U/L Serum Total Protein (6.3-8.2) g/dL Albumin (3.5-5.0) g/dL Amylase (30-110) U/L Lipase (23-300) U/L Urinalys Dipstick Clnc MAIN LAB Urine Color YELLOW (YELLOW) Urine Appearance CLEAR (CLEAR) Urine pH 6.0 (5-6) Ur Specific Orange 1.015 (1.005-1.025) POC Urine Protein Conf NEGATIVE (Negative) Urine Ketones NEGATIVE (NEGATIVE) Urine Nitrite NEGATIVE (NEGATIVE) Urine Bilirubin NEGATIVE (NEGATIVE) Urine Urobilinogen 0.2 (0-1) mg/dL Urine Leukocytes NEGATIVE (NEGATIVE) Urine WBC (Auto) NONE (0-5) /HPF Urine RBC (Auto) NONE (0-2) /HPF U Epithel Cells (Auto) NONE (FEW) /HPF Urine Bacteria (Auto) NONE (NEGATIVE) /HPF Urine RBC NEGATIVE (0-5) Froylan/ul Urine Mucus (Auto) SLIGHT (NEGATIVE) /HPF Ur Culture Indicated? NO Urine Glucose NEGATIVE (NEGATIVE) mg/dL Influenza Type A Ag NEGATIVE (NEGATIVE) Influenza Type B Ag NEGATIVE (NEGATIVE) RSV (PCR) NEGATIVE (Negative) SARS-CoV-2 (PCR) NEGATIVE (NEGATIVE) Slides for Path Review - Radiology Impressions Radiology Exams & Impressions: Radiology Procedures Category Date Time Status ABDOMEN AND PELVIS W/0 CONTRAS [CT] Stat Exams 01/01/22 14:30 Completed HEAD WITHOUT CONTRAST [CT] Stat Exams 01/01/22 14:30 Completed - Other Procedures and Tests Respiratory Therapy 01/01/22 19:11 Respiratory Therapy Assessment DAILY Assessment/Plan (1) Nausea vomiting and diarrhea Current Visit: Yes Status: Acute Assessment & Plan: Chief Complaint Diagnosis Vomiting Allergies Allergy/AdvReac Type Severity Reaction Status Date / Time No Known Drug Allergies Allergy Verified 09/16/21 20:15 Vital Signs (Last 24 hours) Temp Pulse Resp BP Pulse Ox 01/01/22 19:34 98 08/29/22 19:05 89 18 98 01/01/22 17:10 98 01/01/22 17:00 170/80 01/01/22 16:28 98.5 F 65 18 148/72 96 01/01/22 14:15 98.6 F 62 20 154/70 98 01/01/22 13:02 98.6 F 60 18 134/64 98 Current Medications Generic Name Dose Route Start Last Admin Trade Name Daphne PRN Reason Stop Dose Admin Acetaminophen 650 mg 01/01/22 18:49 Acetaminophen 325 Mg Tablet PO 01/31/22 18:48 Q4H PRN PRN PAIN, FEVER, HEADACHE Albuterol Sulfate 2.5 mg 01/01/22 19:11 Albuterol Sulfate 2.5 Mg/3 Ml Neb IH 01/31/22 19:10 Q4H PRN PRN SHORTNESS OF BREATH/WHEEZING Sodium Chloride 1,000 mls @ 75 mls/hr 01/01/22 18:49 01/01/22 19:25 Sodium Chloride 0.9% 1000 Ml IV 01/31/22 18:48 75 mls/hr .[id number] ELIZABETH Administration Insulin Human Regular 0 unit 01/01/22 18:49 Insulin Regular, Human 1 Unit SQ 01/31/22 18:48 UD PRN HYPERGLYCEMIA Ondansetron HCl 4 mg 01/01/22 18:49 Ondansetron Hcl 4 Mg/2 Ml Vial IV 01/31/22 18:48 Q6H PRN PRN NAUSEA/VOMITING Discontinued Medications Generic Name Dose Route Start Last Admin Trade Name Daphne PRN Reason Stop Dose Admin Sodium Chloride 1,000 mls @ 999 mls/hr 01/01/22 13:05 01/01/22 14:16 Sodium Chloride 0.9% 1000 Ml IV 01/01/22 14:05 Infused .Q1H1M STA Infusion Sodium Chloride Confirm 01/01/22 13:12 Sodium Chloride 0.9% 1000 Ml Administered 01/01/22 13:13 Dose 1,000 mls @ ud .ROUTE .STK-MED ONE Ondansetron HCl 4 mg 01/01/22 13:05 01/01/22 13:15 Ondansetron Hcl 4 Mg/2 Ml Vial IV 01/01/22 13:06 4 mg STAT ONE Administration Ondansetron HCl Confirm 01/01/22 13:12 Ondansetron Hcl 4 Mg/2 Ml Vial Administered 01/01/22 13:13 Dose 4 mg .ROUTE .STK-MED ONE Pantoprazole Sodium 40 mg 01/01/22 13:05 01/01/22 13:15 Pantoprazole 40 Mg Vial IV 01/01/22 13:06 40 mg STAT ONE Administration Pantoprazole Sodium Confirm 01/01/22 13:12 Pantoprazole 40 Mg Vial Administered 01/01/22 13:13 Dose 40 mg IV .STK-MED ONE Intake & Output (Last 24 hours) 12/30/21 12/31/21 01/01/22 01/02/22 11:59 11:59 11:59 11:59 Output Total 600 Balance -600 Weight 60.5 kg Laboratory Results (Last 24 hours) 01/01/22 01/01/22 01/01/22 17:30 15:49 13:30 WBC RBC Hgb Hct MCV MCH MCHC RDW Plt Count MPV Gran % Immature Gran % (Auto) Nucleat RBC Rel Count Eos # (Auto) Immature Gran # (Auto) Absolute Lymphs (auto) Absolute Monos (auto) Absolute Nucleated RBC Lymphocytes % Monocytes % Eosinophils % Basophils % Absolute Granulocytes Basophils # Sodium Potassium Chloride Carbon Dioxide Anion Gap BUN Creatinine Estimated GFR Glucose Lactic Acid 1.2 Calcium Total Bilirubin AST ALT Alkaline Phosphatase Serum Total Protein Albumin Amylase Lipase Urinalys Dipstick Clnc MAIN LAB Urine Color YELLOW Urine Appearance CLEAR Urine pH 6.0 Ur Specific Orange 1.015 POC Urine Protein Conf NEGATIVE Urine Ketones NEGATIVE Urine Nitrite NEGATIVE Urine Bilirubin NEGATIVE Urine Urobilinogen 0.2 Urine Leukocytes NEGATIVE Urine WBC (Auto) NONE Urine RBC (Auto) NONE U Epithel Cells (Auto) NONE Urine Bacteria (Auto) NONE Urine RBC NEGATIVE Urine Mucus (Auto) SLIGHT Ur Culture Indicated? NO Urine Glucose NEGATIVE Influenza Type A Ag NEGATIVE Influenza Type B Ag NEGATIVE RSV (PCR) NEGATIVE SARS-CoV-2 (PCR) NEGATIVE Slides for Path Review 01/01/22 01/01/22 13:25 13:25 WBC 6.3 RBC 4.13 Hgb 12.6 Hct 40.1 L MCV 97.1 MCH 30.5 MCHC 31.4 L RDW 12.8 Plt Count 128 L MPV 12.8 H Gran % 79.9 H Immature Gran % (Auto) 0.2 Nucleat RBC Rel Count 0.0 Eos # (Auto) 0.19 Immature Gran # (Auto) 0.01 Absolute Lymphs (auto) 0.55 L Absolute Monos (auto) 0.44 Absolute Nucleated RBC 0.00 Lymphocytes % 8.8 L Monocytes % 7.0 Eosinophils % 3.0 Basophils % 1.1 Absolute Granulocytes 5.00 Basophils # 0.07 Sodium 135 L Potassium 4.1 Chloride 101 Carbon Dioxide 28 Anion Gap 10.8 BUN 16 Creatinine 0.80 Estimated GFR > 60.0 Glucose 102 Lactic Acid Calcium 9.1 Total Bilirubin 0.60 AST 26 ALT 21 Alkaline Phosphatase 142 H Serum Total Protein 6.9 Albumin 4.1 Amylase 52 Lipase 15 L Urinalys Dipstick Clnc Urine Color Urine Appearance Urine pH Ur Specific Orange POC Urine Protein Conf Urine Ketones Urine Nitrite Urine Bilirubin Urine Urobilinogen Urine Leukocytes Urine WBC (Auto) Urine RBC (Auto) U Epithel Cells (Auto) Urine Bacteria (Auto) Urine RBC Urine Mucus (Auto) Ur Culture Indicated? Urine Glucose Influenza Type A Ag Influenza Type B Ag RSV (PCR) SARS-CoV-2 (PCR) Slides for Path Review YES Orders (Last 24 hours) Category Date Time Status Bedrest TOLERATED Activity 01/01/22 18:49 Active Elevate HOB TOLERATED Care 01/01/22 18:49 Active IV Insertion STAT Care 01/01/22 13:05 Completed Neuro Checks STAT Care 01/01/22 18:[address] in Observation ROUTINE Care 01/01/22 18:49 Active Telemetry Q6H Care 01/01/22 18:49 Active Weight,Daily 0600 Care 01/01/22 18:49 Active cath [Cath for Residual-In & Out] STAT Care 01/01/22 16:56 Completed Consistent Carbohydrate Diet 2000 Calorie Diet 01/01/22 Dinner Active ABDOMEN AND PELVIS W/0 CONTRAS [CT] Stat Exams 01/01/22 14:30 Completed HEAD WITHOUT CONTRAST [CT] Stat Exams 01/01/22 14:30 Completed AMYLASE Stat Lab 01/01/22 13:25 Completed CBC W DIFF AM.LAB Lab 01/02/22 04:00 Ordered CBC W DIFF Stat Lab 01/01/22 13:25 Completed CMP AM.LAB Lab 01/02/22 04:00 Ordered CMP Stat Lab 01/01/22 13:25 Completed COVID/FLU/RSV Panel Stat Lab 01/01/22 17:30 Completed LIPASE Stat Lab 01/01/22 13:25 Completed Lactic Acid Stat Lab 01/01/22 13:30 Completed UA W/RFX CULTURE Stat Lab 01/01/22 15:49 Completed Acetaminophen 325 mg [Tylenol 325 mg] Med 01/01/22 18:49 Ordered 650 mg PO Q4H PRN PRN Albuterol 2.5 mg/3 ml Neb [Proventil 2.5 mg/3 ml Neb Med 01/01/22 19:11 Ordered ] 2.5 mg IH Q4H PRN PRN Insulin Regular, Human [Humulin R] Med 01/01/22 18:49 Ordered See Dose Instructions SQ UD PRN NaCl 0.9% 1000 ml [Sodium Chloride 0.9% 1000 ML] 1,000 Med 01/01/22 13:12 Discontinued ml .ROUTE UD NaCl 0.9% 1000 ml [Sodium Chloride 0.9% 1000 ML] 1,000 Med 01/01/22 18:49 Ordered ml IV 75 mls/hr NaCl 0.9% 1000 ml [Sodium Chloride 0.9% 1000 ML] 1,000 Med 01/01/22 13:05 Discontinued ml IV 999 mls/hr Ondansetron HCl 4 mg/2 ml [Zofran 4 MG/2 ML VIAL] Med 01/01/22 13:12 Discontinued 4 mg .ROUTE .STK-MED ONE Ondansetron HCl 4 mg/2 ml [Zofran 4 MG/2 ML VIAL] Med 01/01/22 18:49 Ordered 4 mg IV Q6H PRN PRN Ondansetron HCl 4 mg/2 ml [Zofran 4 MG/2 ML VIAL] Med 01/01/22 13:05 Discontinued 4 mg IV STAT ONE Pantoprazole 40 mg [Protonix 40 mg IV] Med 01/01/22 13:12 Discontinued 40 mg IV .STK-MED ONE Pantoprazole 40 mg [Protonix 40 mg IV] Med 01/01/22 13:05 Discontinued 40 mg IV STAT ONE Pulse Oximetry ROUTINE RT 01/01/22 18:49 Active Respiratory Therapy Assessment DAILY RT 01/01/22 19:11 Active Transfer Order Routine Transfer 01/01/22 Completed Code(s): R11.2 - NAUSEA WITH VOMITING, UNSPECIFIED; R19.7 - DIARRHEA, UNSPECIFIED (2) Abdominal pain Current Visit: Yes Status: Acute Qualifiers: Abdominal location: generalized Qualified Code(s): R10.84 - Generalized abdominal pain Code(s): R10.9 - UNSPECIFIED ABDOMINAL PAIN (3) IDDM (insulin dependent diabetes mellitus) Current Visit: Yes Status: Chronic Code(s): [id number] -
[2022-01-01] MEDS: HUMULIN R SQ PRN (21:30)
[2022-01-02] MEDS: Zofran 4 MG/2 ML VIAL IV PRN ×3 (03:26→19:33)
[2022-01-02 05:00] LABS: Absolute Neutrophil Ct (ANC) 3.61 x10^3/uL (1.4-6.9); Basophil (Absolute #) 0.06 x10^3/uL (0-0.4); Eosinophil % 5.4 % (0.00-5.0); Eosinophil (Absolute #) 0.28 x10^3/uL (0-0.5); Hematocrit 36.5 % (42-50); Hemoglobin 11.8 g/dL (12.5-18.0); Lymphocyte (Absolute #) 0.84 x10^3/uL (1.0-4.6); Lymphocytes % 16.1 % (24.0-44.0); Mean Cell Volume 93.6 fL (78-100); Mean Corpuscular Hemoglobin 30.3 pg (26-32); Mean Corpuscular Hgb Concent. 32.3 g/dL (32-36); Mean Platelet Volume 12.6 fL (7.5-11.0); Monocyte (Absolute #) 0.41 x10^3/uL (0.0-1.3); Monocytes % 7.9 % (0.0-12.0); Neutrophil % 69.1 % (36.0-66.0); Platelet Count 130 x10^3/uL (150-450); Red Cell Distribution Width 12.9 % (11.5-14.0); White Blood Count 5.2 x10^3/uL (4.0-10.5)
[2022-01-02 05:25] LABS: ALBUMIN 3.6 g/dL (3.5-5.0); ALKALINE PHOSPHATASE 127 U/L (38-126); ANION GAP 6.8 MEQ/L (5-15); BLOOD UREA NITROGEN 12 mg/dL (9-20); CHLORIDE 103 mmol/L (98-107); Calcium 8.8 mg/dL (8.4-10.2); Carbon Dioxide 29 mmol/L (22-30); Creatinine 1 0.71 mg/dL (0.66-1.25); EST GLOMERULAR FILTRATION RATE > 60.0 ML/MIN; Glucose 191 mg/dL (74-106); Potassium 3.8 mmol/L (3.5-5.1); SGOT/AST 23 U/L (17-59); SGPT/ALT 18 U/L (0-50); SODIUM 135 mmol/L (137-145); Total Protein 6.3 g/dL (6.3-8.2)
[2022-01-02] MEDS: Sodium Chloride 0.9% 1000 ML 1,000 ML IV SCH ×2 (06:17→19:23)
[2022-01-02] MEDS ORDERED: VENTOLIN COMMON CANISTER IH SCH (11:00)
[2022-01-02] MEDS ORDERED: HYDROCODONE-ACETAMIN 10-325 MG PO PRN (11:11)
[2022-01-02] MEDS ORDERED: MEDICATION INTERVENTION MC SCH (11:30)
[2022-01-02] MEDS ORDERED: NON-FORMULARY ITEM (Insulin Aspart (Niacinamide) [Fiasp 100 Unit/Ml Vial] 100 UNIT/ML Vial SQ SCH ×2 (12:00→18:00)
[2022-01-02] MEDS: Flomax 0.4 MG PO SCH (12:21)
[2022-01-02] MEDS: Multaq 400 MG PO SCH ×2 (12:21→18:23)
[2022-01-02] MEDS: Protonix 40MG Tablet PO SCH (12:21)
[2022-01-02] MEDS: PLAVIX Tablet PO SCH (12:21)
[2022-01-02] MEDS: PRADAXA 75 MG PO SCH (12:21)
[2022-01-02] MEDS: Vitamin B-12 500 MCG PO SCH (12:21)
[2022-01-02] MEDS: Cozaar 50 MG PO SCH (12:22)
[2022-01-02] MEDS: HUMALOG SQ SCH (12:23)
[2022-01-02] MEDS ORDERED: HUMALOG SQ SCH (18:00)
--- NOTE | 2022-01-02 18:29 | PCM.NOTE ---
Date and Time: 01/02/221825 Subjective Assessment: doing ok - Review of Systems Constitutional: No Fever, No Chills Eyes: No Symptoms Ears, Nose, & Throat: No Symptoms Respiratory: No Cough, No Short Of Breath Cardiac: No Chest Pain, No Edema, No Syncope Abdominal/Gastrointestinal: No Abdominal Pain, No Nausea, No Vomiting, No Diarrhea Genitourinary Symptoms: No Dysuria Musculoskeletal: No Back Pain, No Neck Pain Skin: No Rash Neurological: No Dizziness, No Focal Weakness, No Sensory Changes Psychological: No Symptoms Endocrine: No Symptoms Hematologic/Lymphatic: No Symptoms Immunological/Allergic: No Symptoms Objective Exam General Appearance: no apparent distress, alert Neurologic Exam: alert, oriented x 3, cooperative, normal mood/affect, nml cerebellar function, sensation nml, No motor deficits Skin Exam: normal color, warm, dry Eye Exam: PERRL, EOMI, eyes nml inspection Ears, Nose, Throat Exam: normal ENT inspection, pharynx normal, moist mucous membranes Neck Exam: normal inspection, non-tender, supple, full range of motion Respiratory Exam: normal breath sounds, lungs clear, No respiratory distress Cardiovascular Exam: regular rate/rhythm, normal heart sounds Gastrointestinal/Abdomen Exam: soft, No tenderness, No mass Extremity Exam: normal inspection, normal range of motion Back Exam: normal inspection, normal range of motion, No CVA tenderness, No vertebral tenderness Male Genitalia Exam: deferred Rectal Exam: deferred OBJECTIVE DATA Vital Signs: Vital Signs - 24 hr Temp Pulse Resp BP Pulse Ox 01/02/22 15:41 97.9 F 63 16 184/86 96 01/02/22 11:46 98.0 F 62 16 189/84 97 01/02/22 07:33 98.0 F 70 16 141/69 95 01/02/22 07:12 70 16 95 01/02/22 04:00 98.1 F 61 15 189/78 95 01/01/22 23:30 99.1 F 70 16 175/79 95 01/01/22 20:00 97.2 F 84 16 161/72 98 01/01/22 19:34 97.2 F 84 16 161/72 98 01/01/22 19:05 89 18 98 Pain Assessment - Last Documented Pain Intensity 0 Intake and Output: Intake & Output 12/31/21 01/01/22 01/02/22 01/03/22 11:59 11:59 11:59 11:59 Intake Total 760 720 Output Total 0360 601 Balance -1989 119 Weight 57.8 kg Lab Results: Lab Results-Last 24 Hours 01/01/22 01/01/22 01/02/22 Range/Units 17:30 21:14 04:20 WBC 5.2 (4.0-10.5) x10^3/uL RBC 3.90 L (4.1-5.6) x10^6/uL Hgb 11.8 L (12.5-18.0) g/dL Hct 36.5 L (42-50) % MCV 93.6 (78-100) fL MCH 30.3 (26-32) pg MCHC 32.3 (32-36) g/dL RDW 12.9 (11.5-14.0) % Plt Count 130 L (150-450) x10^3/uL MPV 12.6 H (7.5-11.0) fL Gran % 69.1 H (36.0-66.0) % Immature Gran % (Auto) 0.4 (0.00-0.4) % Nucleat RBC Rel Count 0.0 (0.00-0.1) % Eos # (Auto) 0.28 (0-0.5) x10^3/uL Immature Gran # (Auto) 0.02 (0.00-0.03) x10^3u/L Absolute Lymphs (auto) 0.84 L (1.0-4.6) x10^3/uL Absolute Monos (auto) 0.41 (0.0-1.3) x10^3/uL Absolute Nucleated RBC 0.00 (0.00-0.01) x10^3u/L Lymphocytes % 16.1 L (24.0-44.0) % Monocytes % 7.9 (0.0-12.0) % Eosinophils % 5.4 H (0.00-5.0) % Basophils % 1.1 (0.0-0.4) % Absolute Granulocytes 3.61 (1.4-6.9) x10^3/uL Basophils # 0.06 (0-0.4) x10^3/uL Sodium (137-145) mmol/L Potassium (3.5-5.1) mmol/L Chloride (98-107) mmol/L Carbon Dioxide (22-30) mmol/L Anion Gap (5-15) MEQ/L BUN (9-20) mg/dL Creatinine (0.66-1.25) mg/dL Estimated GFR ML/MIN Glucose (74-106) mg/dL POC Glucometer 291 H (74 to 106) mg/dL Calcium (8.4-10.2) mg/dL Total Bilirubin (0.2-1.3) mg/dL AST (17-59) U/L ALT (0-50) U/L Alkaline Phosphatase (38-126) U/L Serum Total Protein (6.3-8.2) g/dL Albumin (3.5-5.0) g/dL Influenza Type A Ag NEGATIVE (NEGATIVE) Influenza Type B Ag NEGATIVE (NEGATIVE) RSV (PCR) NEGATIVE (Negative) SARS-CoV-2 (PCR) NEGATIVE (NEGATIVE) 01/02/22 01/02/22 01/02/22 Range/Units 04:20 11:40 16:21 WBC (4.0-10.5) x10^3/uL RBC (4.1-5.6) x10^6/uL Hgb (12.5-18.0) g/dL Hct (42-50) % MCV (78-100) fL MCH (26-32) pg MCHC (32-36) g/dL RDW (11.5-14.0) % Plt Count (150-450) x10^3/uL MPV (7.5-11.0) fL Gran % (36.0-66.0) % Immature Gran % (Auto) (0.00-0.4) % Nucleat RBC Rel Count (0.00-0.1) % Eos # (Auto) (0-0.5) x10^3/uL Immature Gran # (Auto) (0.00-0.03) x10^3u/L Absolute Lymphs (auto) (1.0-4.6) x10^3/uL Absolute Monos (auto) (0.0-1.3) x10^3/uL Absolute Nucleated RBC (0.00-0.01) x10^3u/L Lymphocytes % (24.0-44.0) % Monocytes % (0.0-12.0) % Eosinophils % (0.00-5.0) % Basophils % (0.0-0.4) % Absolute Granulocytes (1.4-6.9) x10^3/uL Basophils # (0-0.4) x10^3/uL Sodium 135 L (137-145) mmol/L Potassium 3.8 (3.5-5.1) mmol/L Chloride 103 (98-107) mmol/L Carbon Dioxide 29 (22-30) mmol/L Anion Gap 6.8 (5-15) MEQ/L BUN 12 (9-20) mg/dL Creatinine 0.71 (0.66-1.25) mg/dL Estimated GFR > 60.0 ML/MIN Glucose 191 H (74-106) mg/dL POC Glucometer 346 H 169 H (74 to 106) mg/dL Calcium 8.8 (8.4-10.2) mg/dL Total Bilirubin 0.50 (0.2-1.3) mg/dL AST 23 (17-59) U/L ALT 18 (0-50) U/L Alkaline Phosphatase 127 H (38-126) U/L Serum Total Protein 6.3 (6.3-8.2) g/dL Albumin 3.6 (3.5-5.0) g/dL Influenza Type A Ag (NEGATIVE) Influenza Type B Ag (NEGATIVE) RSV (PCR) (Negative) SARS-CoV-2 (PCR) (NEGATIVE) Radiology Exams: Radiology Procedures Category Date Time Status ABDOMEN AND PELVIS W/0 CONTRAS [CT] Stat Exams 01/01/22 14:30 Completed HEAD WITHOUT CONTRAST [CT] Stat Exams 01/01/22 14:30 Completed Multi-Disciplinary Progress Notes: Multi-Disciplinary Progress Notes 01/02/22 13:37 Case Management Note by Danna Marquez OUT OF NETWORK- REFERRAL FAXED TO [facility] Initialized on 01/02/22 13:37 - END OF NOTE 01/02/22 13:06 Case Management Note by Danna Marquez S/W PATIENT AFTER HE WORKED WITH PHYSICAL THERAPY- HE WOULD LIKE TO GO TO REHAB AT TIME OF DC. HIS #1 CHOICE IS [facility], FOLLOWED BY [facility]. REFERRAL FAXED TO [facility] AT THIS TIME Initialized on 08/30/22 13:06 - END OF NOTE Assessment/Plan (1) Nausea vomiting and diarrhea Current Visit: Yes Status: Resolved Code(s): R11.2 - NAUSEA WITH VOMITING, UNSPECIFIED; R19.7 - DIARRHEA, UNSPECIFIED (2) Abdominal pain Current Visit: Yes Status: Resolved Qualifiers: Abdominal location: generalized Qualified Code(s): R10.84 - Generalized abdominal pain Code(s): R10.9 - UNSPECIFIED ABDOMINAL PAIN (3) IDDM (insulin dependent diabetes mellitus) Current Visit: Yes Status: Chronic Code(s): [id number] - (4) Crohn's disease in remission Current Visit: Yes Status: Acute Code(s): K50.90 - CROHN'S DISEASE, UNSPECIFIED, WITHOUT COMPLICATIONS (5) Chronic intestinal ischemic syndrome Current Visit: Yes Status: Chronic Code(s): K55.1 - CHRONIC VASCULAR DISORDERS OF INTESTINE (6) CAD (coronary artery disease) Current Visit: Yes Status: Chronic Qualifiers: Coronary Disease-Associated Artery/Lesion type: [place] artery [place] vs. transplanted heart: [place] heart Associated angina: without angina Qualified Code(s): I25.10 - Atherosclerotic heart disease of [place] coronary artery without angina pectoris Code(s): I25.10 - ATHSCL HEART DISEASE OF [place] CORONARY ARTERY W/O ANG PCTRS
[2022-01-02] MEDS ORDERED: NON-FORMULARY ITEM (Insulin Detemir [Levemir] 100 UNIT/ML Vial) SQ SCH (22:00)
[2022-01-02] MEDS ORDERED: Lantus Insulin SQ SCH (22:00)
[2022-01-02] MEDS ORDERED: Zocor 10MG PO SCH (22:00)
[2022-01-02] MEDS ORDERED: NON-FORMULARY ITEM (Atorvastatin Calcium [Atorvastatin Calcium] 20 MG Tablet) PO SCH (22:00)
[2022-01-02] MEDS: HUMULIN R SQ PRN (22:04)
[2022-01-03] MEDS: Zofran 4 MG/2 ML VIAL IV PRN ×2 (06:48→16:23)
[2022-01-03] MEDS: Sodium Chloride 0.9% 1000 ML 1,000 ML IV SCH (07:37)
[2022-01-03] MEDS ORDERED: HUMALOG SQ SCH (08:00)
[2022-01-03] MEDS ORDERED: NON-FORMULARY ITEM (Insulin Aspart (Niacinamide) [Fiasp 100 Unit/Ml Vial] 100 UNIT/ML Vial SQ SCH (08:00)
--- NOTE | 2022-01-03 08:04 | PCM.NOTE ---
Date and Time: 01/03/2204 Subjective Assessment: doing ok - Review of Systems Constitutional: No Fever, No Chills Eyes: No Symptoms Ears, Nose, & Throat: No Symptoms Respiratory: No Cough, No Short Of Breath Cardiac: No Chest Pain, No Edema, No Syncope Abdominal/Gastrointestinal: No Abdominal Pain, No Nausea, No Vomiting, No Diarrhea Genitourinary Symptoms: No Dysuria Musculoskeletal: No Back Pain, No Neck Pain Skin: No Rash Neurological: No Dizziness, No Focal Weakness, No Sensory Changes Psychological: No Symptoms Endocrine: No Symptoms Hematologic/Lymphatic: No Symptoms Immunological/Allergic: No Symptoms Objective Exam General Appearance: no apparent distress, alert Neurologic Exam: alert, oriented x 3, cooperative, normal mood/affect, nml cerebellar function, sensation nml, No motor deficits Skin Exam: normal color, warm, dry Eye Exam: PERRL, EOMI, eyes nml inspection Ears, Nose, Throat Exam: normal ENT inspection, pharynx normal, moist mucous membranes Neck Exam: normal inspection, non-tender, supple, full range of motion Respiratory Exam: normal breath sounds, lungs clear, No respiratory distress Cardiovascular Exam: regular rate/rhythm, normal heart sounds Gastrointestinal/Abdomen Exam: soft, No tenderness, No mass Extremity Exam: normal inspection, normal range of motion Back Exam: normal inspection, normal range of motion, No CVA tenderness, No vertebral tenderness Male Genitalia Exam: deferred Rectal Exam: deferred OBJECTIVE DATA Vital Signs: Vital Signs - 24 hr Temp Pulse Resp BP Pulse Ox 01/03/22 07:27 97.0 F 60 16 187/85 95 01/03/22 07:08 60 16 95 01/03/22 04:00 98.0 F 68 18 150/70 96 01/02/22 23:35 97.9 F 51 L 18 140/63 94 L 01/02/22 20:00 97.5 F 59 L 17 187/80 95 01/02/22 18:47 62 16 96 01/02/22 15:41 97.9 F 63 16 184/86 96 01/02/22 11:46 98.0 F 62 16 189/84 97 Pain Assessment - Last Documented Pain Intensity 0 Pain Scale Used 0-10 Pain Scale Intake and Output: Intake & Output 12/31/21 01/01/22 01/02/22 01/03/22 11:59 11:59 11:59 11:59 Intake Total 760 3341 Output Total 2750 1501 Balance -1989 1839 Weight 57.8 kg Lab Results: Lab Results-Last 24 Hours 01/02/22 01/02/22 01/02/22 Range/Units 11:40 16:21 21:34 POC Glucometer 346 H 169 H 173 H (74 to 106) mg/dL 01/03/22 Range/Units 07:10 POC Glucometer 178 H (74 to 106) mg/dL Radiology Exams: Radiology Procedures Category Date Time Status ABDOMEN AND PELVIS W/0 CONTRAS [CT] Stat Exams 01/01/22 14:30 Completed HEAD WITHOUT CONTRAST [CT] Stat Exams 01/01/22 14:[address]/HEAD WITHOUT CONTRAST Indication: Weakness and loss of balance. History of Crohn's disease. Multiple contiguous axial images obtained through the head without contrast. Comparison: September 16, 2021 Again age-appropriate global atrophy, mild periventricular degenerative micro-ischemia, and remote lacunar infarcts left thalamus/right basal ganglia. No acute intracranial hemorrhage, abnormal extra-axial fluid collection, or mass effect. Fourth ventricle is midline without hydrocephalus. Bony calvarium intact. Again mild mucosal thickening both maxillary and lesser degree both ethmoid sinuses. Mastoid air cells are clear. Impression: Continued nonacute senile brain with incidental remote lacunar infarcts and paranasal sinus disease. CT/ABDOMEN AND PELVIS W/0 CONTRAS Indication: Weakness and loss of balance. History Crohn's disease. Multiple contiguous axial images obtained through the abdomen and pelvis without contrast. Comparison: April 25, 2015 Lung bases again demonstrates pulmonary emphysema with scattered fibrosis/scarring and left base calcified granulomas. Heart not enlarged. Stomach distended with food/fluid. Noncontrasted stomach and bowel loops nonobstructed. Appendectomy reported. There is now mild diffuse scattered colonic fecal debris including mild rectal impaction. Urinary bladder is now markedly distended concerning for outlet obstruction versus neurogenic bladder. New 1 right renal and 2 left renal nonobstructing punctate calculi. No free fluid/air. Gallbladder contracted without gallstones. Remaining liver, pancreas, spleen, adrenal glands, kidneys, ureters, and bladder are unremarkable for noncontrast exam. There remains heavy scattered aortoiliac calcifications without AAA. Osseous structures intact again with osteopenia and progressive worsening mild/moderate degenerative changes throughout the spine. Also new remote-appearing superior T11/inferior L1 endplate fractures with approximately 25% height loss. No ventral or inguinal hernias. Impression: 1. New mild fecal stasis with mild rectal impaction. 2. New markedly distended urinary bladder. Rule out outlet obstruction versus neurogenic bladder. 3. New nonobstructing bilateral renal micro-calculi. 4. Chronic findings including pulmonary emphysema, pulmonary fibrosis/scarring, arteriosclerotic disease, chronic bony findings, and old granulomatous disease. Multi-Disciplinary Progress Notes: Multi-Disciplinary Progress Notes 01/02/22 13:37 Case Management Note by Danna Marquez OUT OF NETWORK- REFERRAL FAXED TO [facility] Initialized on 01/02/22 13:37 - END OF NOTE 01/02/22 13:06 Case Management Note by Danna Marquez S/W PATIENT AFTER HE WORKED WITH PHYSICAL THERAPY- HE WOULD LIKE TO GO TO REHAB AT TIME OF DC. HIS #1 CHOICE IS [facility], FOLLOWED BY [facility]. REFERRAL FAXED TO [facility] AT THIS TIME Initialized on 01/02/22 13:06 - END OF NOTE Assessment/Plan (1) Nausea vomiting and diarrhea Status: Resolved Code(s): R11.2 - NAUSEA WITH VOMITING, UNSPECIFIED; R19.7 - DIARRHEA, UNSPECIFIED (2) Abdominal pain Status: Resolved Qualifiers: Abdominal location: generalized Qualified Code(s): R10.84 - Generalized abdominal pain Code(s): R10.9 - UNSPECIFIED ABDOMINAL PAIN (3) IDDM (insulin dependent diabetes mellitus) Status: Chronic Code(s): [id number] - (4) Crohn's disease in remission Status: Acute Code(s): K50.90 - CROHN'S DISEASE, UNSPECIFIED, WITHOUT COMPLICATIONS (5) Chronic intestinal ischemic syndrome Status: Chronic Code(s): K55.1 - CHRONIC VASCULAR DISORDERS OF INTESTINE (6) CAD (coronary artery disease) Status: Chronic Qualifiers: Coronary Disease-Associated Artery/Lesion type: [place] artery [place] vs. transplanted heart: [place] heart Associated angina: without angina Qualified Code(s): I25.10 - Atherosclerotic heart disease of [place] coronary artery without angina pectoris Code(s): I25.10 - ATHSCL HEART DISEASE OF [place] CORONARY ARTERY W/O ANG PCTRS
[2022-01-03] MEDS: HUMULIN R SQ PRN (08:26)
[2022-01-03] MEDS: Multaq 400 MG PO SCH (08:27)
[2022-01-03] MEDS: PRADAXA 75 MG PO SCH (08:27)
[2022-01-03] MEDS: Cozaar 50 MG PO SCH (08:27)
[2022-01-03] MEDS: PLAVIX Tablet PO SCH ×2 (08:27→08:28)
[2022-01-03] MEDS: Vitamin B-12 500 MCG PO SCH (08:28)
[2022-01-03] MEDS: Protonix 40MG Tablet PO SCH (08:28)
[2022-01-03] MEDS: Flomax 0.4 MG PO SCH (08:28)
[2022-01-03] MEDS ORDERED: NON-FORMULARY ITEM (Cyanocobalamin (Vitamin B-12) [Vitamin B-12] 1,000 MCG Capsule) PO SCH (10:00)
[2022-01-03] MEDS ORDERED: NON-FORMULARY ITEM (Budesonide [Budesonide Dr] 3 MG Capdr...Er) PO SCH (10:00)
[2022-01-03] MEDS ORDERED: NON-FORMULARY ITEM (Losartan Potassium [Cozaar] 25 MG Tablet) PO SCH (10:00)
[2022-01-03] MEDS: HUMALOG SQ SCH (12:30)
[2022-01-03 16:24] VITALS: BP 166/77; PULSE 66; O2SAT 97
[2022-01-03 18:12] LABS: Absolute Neutrophil Ct (ANC) 5.91 x10^3/uL (1.4-6.9); Basophil (Absolute #) 0.05 x10^3/uL (0-0.4); Eosinophil % 1.8 % (0.00-5.0); Eosinophil (Absolute #) 0.13 x10^3/uL (0-0.5); Hemoglobin 13.3 g/dL (12.5-18.0); Lymphocyte (Absolute #) 0.53 x10^3/uL (1.0-4.6); Lymphocytes % 7.5 % (24.0-44.0); Mean Cell Volume 93.2 fL (78-100); Mean Corpuscular Hemoglobin 30.2 pg (26-32); Mean Corpuscular Hgb Concent. 32.4 g/dL (32-36); Mean Platelet Volume 12.6 fL (7.5-11.0); Monocyte (Absolute #) 0.38 x10^3/uL (0.0-1.3); Monocytes % 5.4 % (0.0-12.0); Neutrophil % 84.2 % (36.0-66.0); Platelet Count 156 x10^3/uL (150-450); Red Cell Distribution Width 12.4 % (11.5-14.0)
[2022-01-03 18:38] LABS: ALBUMIN 4.4 g/dL (3.5-5.0); ALKALINE PHOSPHATASE 156 U/L (38-126); ANION GAP 12.6 MEQ/L (5-15); BLOOD UREA NITROGEN 11 mg/dL (9-20); CHLORIDE 98 mmol/L (98-107); Calcium 9.2 mg/dL (8.4-10.2); Carbon Dioxide 26 mmol/L (22-30); Creatinine 1 0.63 mg/dL (0.66-1.25); EST GLOMERULAR FILTRATION RATE > 60.0 ML/MIN; Glucose 252 mg/dL (74-106); Potassium 4.1 mmol/L (3.5-5.1); SGOT/AST 29 U/L (17-59); SGPT/ALT 22 U/L (0-50); SODIUM 132 mmol/L (137-145); Total Protein 7.3 g/dL (6.3-8.2)
[2022-01-03 21:47] LABS: Slide Review 1 YES
--- NOTE | 2022-01-04 20:28 | PCM.DS ---
Discharge Summary Date of Admission: 01/01/22 18:35 Admitting Physician: ROSANNA KYLE Primary Care Provider: ROSANNA KYLE Allergies Allergies No Known Drug Allergies Allergy (Verified 09/16/21 20:15) Hospital Summary - Hospital Course Hospital Course: Chief Complaint Diagnosis Vomiting Allergies Allergy/AdvReac Type Severity Reaction Status Date / Time No Known Drug Allergies Allergy Verified 09/16/21 20:15 Home Medications Medication Instructions Recorded Confirmed Last Taken Type Atorvastatin Calcium 20 mg PO QHS 01/01/22 01/02/22 01/01/22 08:00 History Tamsulosin HCl 0.4 mg [Flomax 0.4 mg PO DAILY 01/01/22 01/01/22 01/01/22 08:00 History 0.4 MG] Cyanocobalamin (Vitamin B-12) 1,000 mcg PO DAILY 01/02/22 01/02/22 Unknown History [Vitamin B-12] Losartan Potassium [Cozaar] 12.5 mg PO DAILY 01/02/22 01/02/22 Unknown History Ondansetron ODT 4 MG [Zofran 4 mg PO Q6H PRN PRN 5 Days #20 01/03/22 Unknown Rx Odt 4 mg] tablet Current Medications Discontinued Medications Generic Name Dose Route Start Last Admin Trade Name Freq PRN Reason Stop Dose Admin Acetaminophen 650 mg 01/01/22 18:49 Acetaminophen 325 Mg Tablet PO 01/31/22 18:48 Q4H PRN PRN PAIN, FEVER, HEADACHE Hydrocodone Bitart/Acetaminophen 1 tablet 01/02/22 11:11 01/02/22 19:32 Hydrocodone/Acetamin 10-325 Mg Tablet PO 01/07/22 11:10 1 tablet BIDPRN PRN Administration PAIN Albuterol Sulfate 2.5 mg 01/01/22 19:11 Albuterol Sulfate 2.5 Mg/3 Ml Neb 01/31/22 19:10 Q4H PRN PRN SHORTNESS OF BREATH/WHEEZING Albuterol Sulfate 2 puff 01/02/22 11:00 Albuterol Common Canister Inhaler 02/01/22 10:59 QIDRT ELIZABETH Clopidogrel Bisulfate 75 mg 01/02/22 12:00 01/03/22 08:28 Clopidogrel Bisulfate 75 Mg Tablet PO 02/01/22 11:59 75 mg DAILY ELIZABETH Administration Cyanocobalamin 1,000 mcg 01/02/22 12:00 01/03/22 08:28 Cyanocobalamin 500 Mcg Tablet PO 02/01/22 11:59 1,000 mcg DAILY ELIZABETH Administration Dabigatran 75 mg 01/02/22 12:00 01/03/22 08:27 Dabigatran Etexilate Mesylate 75 Mg Capsule PO 02/01/22 11:59 75 mg DAILY ELIZABETH Administration Dronedarone 200 mg 01/02/22 12:00 01/03/22 08:27 Dronedarone Hydrochloride 400 Mg Tablet PO 02/01/22 11:59 200 mg BIDWM ELIZABETH Administration Sodium Chloride 1,000 mls @ 999 mls/hr 01/01/22 13:05 01/01/22 14:16 Sodium Chloride 0.9% 1000 Ml IV 01/01/22 14:05 Infused .Q1H1M STA Infusion Sodium Chloride Confirm 01/01/22 13:12 Sodium Chloride 0.9% 1000 Ml Administered 01/01/22 13:13 Dose 1,000 mls @ ud .ROUTE .STK-MED ONE Sodium Chloride 1,000 mls @ 75 mls/hr 01/01/22 18:49 01/03/22 07:37 Sodium Chloride 0.9% 1000 Ml IV 01/31/22 18:48 75 mls/hr .[id number] ELIZABETH Administration Insulin Glargine 11 unit 01/02/22 22:00 01/02/22 22:03 Insulin Glargine 1 Unit SQ 02/01/22 21:59 11 unit HS ELIZABETH Administration Insulin Human Lispro 16 unit 01/02/22 12:00 01/03/22 12:30 Insulin Lispro 1 Unit SQ 02/01/22 11:59 Not Given LUNCH ELIZABETH Insulin Human Lispro 21 unit 01/02/22 18:00 01/02/22 18:24 Insulin Lispro 1 Unit SQ 02/01/22 17:59 21 unit EVENING MEAL ELIZABETH Administration Insulin Human Lispro 18 unit 01/03/22 08:00 01/03/22 08:26 Insulin Lispro 1 Unit SQ 02/02/22 07:59 Not Given BREAKFAST [facility] Insulin Human Regular 0 unit 01/01/22 18:49 01/02/22 22:04 Insulin Regular, Human 1 Unit SQ 01/31/22 18:48 3 unit UD PRN Administration HYPERGLYCEMIA Losartan Potassium 12.5 mg 01/02/22 12:00 01/03/22 08:27 Losartan Potassium 50 Mg Tablet PO 02/01/22 11:59 12.5 mg DAILY ELIZ[facility]ETH Administration Miscellaneous Information 1 each 01/02/22 11:30 Medication Intervention 1 Each Each 02/01/22 11:29 .RN TO CHECK [facility]ABETH Ondansetron HCl 4 mg 01/01/22 13:05 01/01/22 13:15 Ondansetron Hcl 4 Mg/2 Ml Vial IV 01/01/22 13:06 4 mg STAT ONE Administration Ondansetron HCl Confirm 01/01/22 13:12 Ondansetron Hcl 4 Mg/2 Ml Vial Administered 01/01/22 13:13 Dose 4 mg .ROUTE .STK-MED ONE Ondansetron HCl 4 mg 01/01/22 18:49 01/03/22 16:23 Ondansetron Hcl 4 Mg/2 Ml Vial IV 01/31/22 18:48 4 mg Q6H PRN PRN Administration NAUSEA/VOMITING Pantoprazole Sodium 40 mg 01/01/22 13:05 01/01/22 13:15 Pantoprazole 40 Mg Vial IV 01/01/22 13:06 40 mg STAT ONE Administration Pantoprazole Sodium Confirm 01/01/22 13:12 Pantoprazole 40 Mg Vial Administered 01/01/22 13:13 Dose 40 mg IV .STK-MED ONE Pantoprazole Sodium 40 mg 01/02/22 12:00 01/03/22 08:28 Protonix (Pantoprazole) 40 Mg Tablet PO 02/01/22 11:59 40 mg DAILY ELIZABETH Administration Simvastatin 10 mg 01/02/22 22:00 01/02/22 22:04 Simvastatin 10 Mg Tablet PO 02/01/22 21:59 10 mg QHS ELIZ[facility]ETH Administration Tamsulosin HCl 0.4 mg 01/02/22 12:00 01/03/22 08:28 Tamsulosin Hcl 0.4 Mg Cap PO 02/01/22 11:59 0.4 mg DAILY ELIZABETH Administration Intake & Output (Last 24 hours) 01/02/22 01/03/22 01/04/22 01/05/22 11:59 11:59 11:59 11:59 Intake Total 760 3341 240 Output Total 2750 1501 Balance -1989 1840 240 Weight 57.8 kg Laboratory Results (Last 24 hours) 01/03/22 18:00 Slides for Path Review YES Patient Care Notes (Last 24 hours) 01/04/22 14:34 PT Outpatient POC Note by Sowmya(L#[id number])Grace I have reviewed this plan of care and certify that skilled therapy services identified above are required to meet the patient's needs. Initialized on 01/04/22 14:34 - END OF NOTE Patient and family were advised for Rehabilitation due to profound weakness, But daughter stats that he will have 24 hours care at home and insidted that she wants him to come home. Patient is still very weak and unable to get out by his own. Later on at time of discharge daughter noticed that patient is very weak and wanted to keep her in hospital. As patient weakness is due to his chronic multiple illnesses I advised daughter he may benefit more from rehab then hospital stay. She asked nurse to draw blood for ammonia level. Patient is not showing any active hepatic failure signs any NH# level will not suggest anything about patient profound weakness. - Vitals & Intake/Output Vital Signs: Vital Signs Temperature 98.2 F 01/03/22 16:00 Pulse Rate 66 01/03/22 16:00 Respiratory Rate 16 01/03/22 16:00 Blood Pressure 166/77 01/03/22 16:00 O2 Sat by Pulse Oximetry 97 01/03/22 16:00 Intake & Output: Intake & Output 01/02/22 01/03/22 01/04/22 01/05/22 11:59 11:59 11:59 11:59 Intake Total 760 3341 240 Output Total 2750 1501 Balance -19890 240 Weight 57.8 kg - Lab Result Diagrams: 01/03/22 18:00 01/03/22 18:02 Lab Results-Last 24 Hrs: Lab Results-Last 24 Hours 01/03/22 Range/Units 18:00 Slides for Path Review YES - Procedures and Test Procedures and Tests throughout Hospitalization: Therapy Orders & Screens 01/01/22 19:11 Respiratory Therapy Assessment DAILY Comment: Diagnosis: Vomiting 01/01/22 19:54 RT Screen per Nursing Assess ONCE Comment: Protocol Order Physician Instructions: Greater than 3 points order RT Admission Screen Reason For Exam: Triggered on Admission Diagnosis: Vomiting Diagnosis: Vomiting Pneumonia: No Home O2: No Asthma: No CHF: Yes Home CPAP/BIPAP: No Home Nebs/MDI: Yes Total Points: 8 01/02/22 09:33 PT Eval & Treat (MD Order) ONCE Reason for Eval:: WEAKNESS, DIZZINESS Diagnosis: Vomiting Discharge Exam General Appearance: no apparent distress, mild distress, alert, lethargy Neurologic Exam: alert, other (weakness), No motor deficits Eye Exam: PERRL, EOMI, eyes nml inspection Ears, Nose, Throat Exam: normal ENT inspection, pharynx normal, moist mucous membranes Neck Exam: normal inspection, non-tender, supple, full range of motion Respiratory Exam: normal breath sounds, lungs clear, No respiratory distress Cardiovascular Exam: irregular Gastrointestinal/Abdomen Exam: soft, No tenderness, No mass Male Genitalia Exam: deferred Rectal Exam: deferred Back Exam: normal inspection, No CVA tenderness, No vertebral tenderness Extremity Exam: normal inspection Skin Exam: normal color, warm, dry Final Diagnosis/Problem List - Final Discharge Diagnosis/Problem (1) TIA (transient ischemic attack) Status: Suspected Priority: High Code(s): G45.9 - TRANSIENT CEREBRAL ISCHEMIC ATTACK, UNSPECIFIED (2) Nausea vomiting and diarrhea Status: Resolved Code(s): R11.2 - NAUSEA WITH VOMITING, UNSPECIFIED; R19.7 - DIARRHEA, UNSPECIFIED (3) Abdominal pain Status: Resolved Code(s): R10.9 - UNSPECIFIED ABDOMINAL PAIN (4) IDDM (insulin dependent diabetes mellitus) Status: Chronic Code(s): [id number] - (5) Crohn's disease in remission Status: Acute Code(s): K50.90 - CROHN'S DISEASE, UNSPECIFIED, WITHOUT COMPLICATIONS (6) Chronic intestinal ischemic syndrome Status: Chronic Code(s): K55.1 - CHRONIC VASCULAR DISORDERS OF INTESTINE (7) CAD (coronary artery disease) Status: Chronic Code(s): I25.10 - ATHSCL HEART DISEASE OF [place] CORONARY ARTERY W/O ANG PCTRS (8) Physical debility Status: Chronic Assessment & Plan: 4-6 weeks of physical rehab advised but patient daughter refused and wants to take him home. Code(s): R53.81 - OTHER MALAISE (9) H/O TIA (transient ischemic attack) and stroke Status: Chronic Code(s): Z86.73 - PRSNL HX OF TIA (TIA), AND CEREB INFRC W/O RESID DEFICITS - Discharge Discharge Date: 01/03/22 Disposition: Home, Self-Care Condition: Stable Prescriptions: New Ondansetron ODT 4 MG [Zofran Odt 4 mg] 4 mg PO Q6H PRN PRN 5 Days #20 tablet PRN Reason: Nausea Continue Budesonide [Budesonide Dr] 3 mg PO DAILY Hydrocodone/Acetaminophen [Hydrocodone-Acetamin 10-325 mg] 10 tab PO BIDPRN PRN PRN Reason: Pain PANTOPRAZOLE 40 mg Tablet [Protonix 40MG Tablet] 40 mg PO DAILY Insulin Detemir [Levemir] 11 units SQ HS Clopidogrel Bisulfate [PLAVIX Tablet] 75 mg PO DAILY Albuterol Sulfate [Albuterol Sulfate Hfa] 2 puff IH QID Insulin Aspart (Niacinamide) [Fiasp 100 Unit/ml Vial] 18 unit SQ BREAKFAST Dabigatran Etexilate Mesylate [Pradaxa] 75 mg PO DAILY Dronedarone Hydrochloride 400* [Multaq 400 MG] 200 mg PO BID Insulin Aspart (Niacinamide) [Fiasp 100 Unit/ml Vial] 16 units SQ LUNCH Insulin Aspart (Niacinamide) [Fiasp 100 Unit/ml Vial] 21 units SQ EVENING MEAL Tamsulosin HCl 0.4 mg [Flomax 0.4 MG] 0.4 mg PO DAILY Atorvastatin Calcium 20 mg PO QHS Losartan Potassium [Cozaar] 12.5 mg PO DAILY Cyanocobalamin (Vitamin B-12) [Vitamin B-12] 1,000 mcg PO DAILY Instructions: Transient Ischemic Attack (DC), Nausea and Vomiting, Adult (DC) Additional Instructions: [facility] THEY WILL CONTACT YOU TO ARRANGE A VISIT. THEIR PHONE NUMBER IS [phone]. A SHOWER CHAIR WAS ORDERED THRU [facility]- THEY WILL CONTACT YOU TO DISCUSS THAT COST THEN WILL DELIVER IT IF NEEDED. THEIR PHONE NUMBER IS [phone] Follow up with: ROSANNA KYLE MD [Primary Care Provider] - 01/11/22 3:15 pm ([place] Office) Forms: Discharge Instructions
== END 2022-01-03 18:04 | disposition home health service (06) ==
LOC: ED 13:01 → MED SURG 18:35
PROVIDERS: ADMIT General Practice; ATTEND General Practice
DX: K50.90 Crohn's disease, unspecified, without complications (principal); K55.1 Chronic vascular disorders of intestine; I25.10 Atherosclerotic heart disease of native coronary artery without angina pectoris; E11.9 Type 2 diabetes mellitus without complications; Z79.899 Other long term (current) drug therapy; Z20.828 Contact with and (suspected) exposure to other viral communicable diseases
CPT/HCPCS: 0241U; 36000; 36415; 51701; 70450; 74176; 80053; 81015; 82140; 82150; 82947; 83605; 83690; 85025; 94760; 96374; 96375; 97110; 97161; 99285; 93268; J1815; J1817; J2405; A9270-GY; G0378

== ENCOUNTER 2022-02-16 15:46 | Emergency (ER) | payer MEDICARE ==
[2022-02-16] MEDS ORDERED: Sodium Chloride 0.9% 1000 ML 1,000 ML IV STA ×2 (16:46→18:00)
[2022-02-16] MEDS ORDERED: Sodium Chloride 0.9% 1000 ML 1,000 ML ONE ×2 (16:49→18:01)
--- NOTE | 2022-02-16 16:52 | ERPHSYRPT ---
- History of Present Illness Source: patient, other (Daughter) Exam Limitations: other (Very poor historian) Patient Subjective Stated Complaint: Patient was in cardiac therapy and they were checking his B/P and noted hypotension. B/P 68/43 while sitting in cardiac therapy. Patient states he is weak today. Triage Nursing Assessment: Patient alert and oriented. No SOB noted. Skin tone normal, warm, dry. Physician History: 67 yo wm w h/o UT/hyperlipidemia/Occipital CVA w balance problems/COPD/UT/Stents/CABG/1 ppd tobacco use until 2 months ago presents w decreased BP today. Pt went to cardiac rehab and was found to have systolic BP in the 60's. BP 96 systolic in ER. Pt denies new focal weakness/fever/chest pain/coryza/abdominal pain/N/V/D/Melena/hematochezia/dysuria/hematuria. Pt does have a chronic cough which might be a little worse. Timing/Duration: today Severity: mild Modifying Factors: Improves With: nothing Associated Symptoms: denies symptoms Allergies/Adverse Reactions: No Known Drug Allergies Allergy (Verified 02/16/22 16:05) Home Medications: Albuterol Sulfate [Albuterol Sulfate Hfa] 2 puff IH QID 10/24/20 [History] Budesonide [Budesonide Dr] 3 mg PO DAILY 10/24/20 [History] Hydrocodone/Acetaminophen [Hydrocodone-Acetamin 10-325 mg] 10 tab PO BIDPRN PRN 10/24/20 [History] Insulin Detemir [Levemir] 11 units SQ HS 10/24/20 [History] PANTOPRAZOLE 40 mg Tablet [Protonix 40MG Tablet] 40 mg PO DAILY 10/24/20 [History] Dronedarone Hydrochloride 400* [Multaq 400 MG] 200 mg PO BID 09/16/21 [History] Insulin Aspart (Niacinamide) [Fiasp 100 Unit/ml Vial] 16 units SQ LUNCH 09/16/21 [History] Insulin Aspart (Niacinamide) [Fiasp 100 Unit/ml Vial] 18 unit SQ BREAKFAST 09/16/21 [History] Insulin Aspart (Niacinamide) [Fiasp 100 Unit/ml Vial] 21 units SQ EVENING MEAL 09/16/21 [History] Atorvastatin Calcium 20 mg PO QHS 01/01/22 [History] Tamsulosin HCl 0.4 mg [Flomax 0.4 MG] 0.4 mg PO DAILY 01/01/22 [History] Cyanocobalamin (Vitamin B-12) [Vitamin B-12] 1,000 mcg PO DAILY 01/02/22 [History] Dronedarone Hydrochloride 400* [Multaq 400 MG] 1 tab PO BID 02/16/22 [History] Insulin Aspart (Niacinamide) [Fiasp 100 Unit/ml Vial] 02/16/22 [History] Hx Tetanus, Diphtheria Vaccination/Date Given: Yes Hx Influenza Vaccination/Date Given: Yes Hx Pneumococcal Vaccination/Date Given: No Immunizations Up to Date: Yes Travel Risk - International Travel Have you traveled outside of the country in past 3 weeks: No - Coronavirus Screening Are you exhibiting any of the following symptoms?: No Close contact with a COVID-19 positive Pt in past 14-21 Days: No - Vaccine Status Have you recieved a Covid-19 vaccination: Yes 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: [employer] - Vaccination Dates Date of 2cond Vaccination (if applicable): 2019 Comment: plus boosters - Review of Systems Constitutional: No Symptoms, Lethargy, Malaise, Weakness Eyes: No Symptoms Ears, Nose, & Throat: No Symptoms Respiratory: No Symptoms Cardiac: No Symptoms Abdominal/Gastrointestinal: No Symptoms Genitourinary Symptoms: No Symptoms Musculoskeletal: No Symptoms Skin: No Symptoms Neurological: No Symptoms Psychological: No Symptoms Endocrine: No Symptoms Hematologic/Lymphatic: No Symptoms Immunological/Allergic: No Symptoms - Past Medical History Pertinent Past Medical History: Yes Neurological History: Stroke ENT History: Other Cardiac History: Coronary Artery Disease Respiratory History: No Pertinent History Endocrine Medical History: Diabetes Type II Musculoskeletal History: Arthritis GI Medical History: Crohns Disease History: No Pertinent History Psycho-Social History: No Pertinent History Male Reproductive Disorders: Prostate Problems Other Medical History: retinopathy no residual on stroke, hypotension, - Past Surgical History Past Surgical History: Yes Neuro Surgical History: No Pertinent History Cardiac: CABG, Cardiac Catheterization, Cardiac Stent, Other Respiratory: No Pertinent History Gastrointestinal: Appendectomy, Other Genitourinary: No Pertinent History Musculoskeletal: Orthopedic Surgery Male Surgical History: No Pertinent History Other Surgical History: 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, intestinal resection, triple bypass - Social History Smoking Status: Former smoker How long have you smoked: years Exposure to second hand smoke: Yes Drug Use: none Patient Lives Alone: No (daughter) Significant Family History: no pertinent family hx - Nursing Vital Signs Nursing Vital Signs: Initial Vital Signs Temperature 98.2 F 02/16/22 16:14 Pulse Rate 71 02/16/22 16:14 Respiratory Rate 19 02/16/22 16:14 Blood Pressure 96/52 02/16/22 16:14 O2 Sat by Pulse Oximetry 100 02/16/22 16:14 Pain Scale Pain Intensity 0 Borderline BP - Physical Exam General Appearance: no apparent distress Eye Exam: PERRL/EOMI, eyes nml inspection Ears, Nose, Throat Exam: normal ENT inspection, TMs normal, pharynx normal, moist mucous membranes Neck Exam: normal inspection, non-tender, supple, full range of motion, No meningismus, No mass, No Brudzinski, No Kernig's, No carotid bruit Respiratory Exam: normal breath sounds, lungs clear, airway intact, No respiratory distress Cardiovascular Exam: regular rate/rhythm, murmur (2/6 AIDAN), capillary refill <2 sec Gastrointestinal/Abdomen Exam: soft, normal bowel sounds, No tenderness Back Exam: normal inspection, normal range of motion, No CVA tenderness, No vertebral tenderness Extremity Exam: normal inspection, normal range of motion, pelvis stable Neurologic Exam: alert, oriented x 3, cooperative, 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, normal mood/affect, sensation nml Skin Exam: normal color, warm, dry, No rash Lymphatic Exam: adenopathy SpO2 Interpretation: normal SpO2: 100 O2 Delivery: Room Air - Course Nursing assessment & vital signs reviewed: Yes EKG Interpreted by Me: RATE (NSR/Rate69/Prolonged QT-QTc/RBBB/No acute ST segment changes) - Radiology Exams Chest X-ray Interpretation: Interpreted by me (Post-surgical chest/Nothing acute) Ordered Tests: Active Orders 24 hr Category Date Time Status EKG-ER Only STAT Care 02/16/22 16:44 Active IV Insertion STAT Care 02/16/22 16:48 Active CHEST 1 VIEW (PORTABLE) Stat Exams 02/16/22 16:43 Taken CBC W DIFF Stat Lab 02/16/22 16:50 Completed CMP Stat Lab 02/16/22 16:50 Completed Lactic Acid Stat Lab 02/16/22 16:43 Completed MAGNESIUM Stat Lab 02/16/22 16:50 Completed NT PRO BNP Stat Lab 02/16/22 16:50 Completed PROTIME WITH INR Stat Lab 02/16/22 16:50 Completed PTT Stat Lab 02/16/22 16:50 Completed TROPONIN Q4H Lab 02/16/22 16:50 Completed TROPONIN Q4H Lab 02/16/22 19:35 Completed TROPONIN Q4H Lab 02/17/22 00:45 Ordered UA W/RFX CULTURE Stat Lab 02/16/22 18:43 Completed Medication Summary Discontinued Medications Generic Name Dose Route Start Last Admin Trade Name Daphne PRN Reason Stop Dose Admin Hydrocodone Bitart/Acetaminophen 1 tab 02/16/22 20:35 02/16/22 20:37 Hydrocodone/Apap 5/325 Mg Tablet PO 02/16/22 20:36 1 tab STAT ONE Administration Hydrocodone Bitart/Acetaminophen Confirm 02/16/22 20:36 Hydrocodone/Apap 5/325 Mg Tablet Administered 02/16/22 20:37 Dose 1 tab .ROUTE .STK-MED ONE Sodium Chloride 1,000 mls @ 999 mls/hr 02/16/22 16:46 02/16/22 17:50 Sodium Chloride 0.9% 1000 Ml IV 02/16/22 17:46 Infused .Q1H1M STA Infusion Sodium Chloride Confirm 02/16/22 16:49 Sodium Chloride 0.9% 1000 Ml Administered 02/16/22 16:50 Dose 1,000 mls @ ud .ROUTE .STK-MED ONE Sodium Chloride 1,000 mls @ 999 mls/hr 02/16/22 18:00 02/16/22 19:02 Sodium Chloride 0.9% 1000 Ml IV 02/16/22 19:00 Infused .Q1H1M STA Infusion Sodium Chloride Confirm 02/16/22 18:01 Sodium Chloride 0.9% 1000 Ml Administered 02/16/22 18:02 Dose 1,000 mls @ ud .ROUTE .STK-MED ONE Lab/Rad Data: Laboratory Result Diagrams 02/16/22 16:50 02/16/22 16:50 Laboratory Results 02/16/22 02/16/22 02/16/22 Range/Units 19:35 18:43 16:55 WBC (4.0-10.5) x10^3/uL RBC (4.1-5.6) x10^6/uL Hgb (12.5-18.0) g/dL Hct (42-50) % MCV (78-100) fL MCH (26-32) pg MCHC (32-36) g/dL RDW (11.5-14.0) % Plt Count (150-450) x10^3/uL MPV (7.5-11.0) fL Gran % (36.0-66.0) % Immature Gran % (Auto) (0.00-0.4) % Nucleat RBC Rel Count (0.00-0.1) % Eos # (Auto) (0-0.5) x10^3/uL Immature Gran # (Auto) (0.00-0.03) x10^3u/L Absolute Lymphs (auto) (1.0-4.6) x10^3/uL Absolute Monos (auto) (0.0-1.3) x10^3/uL Absolute Nucleated RBC (0.00-0.01) x10^3u/L Lymphocytes % (24.0-44.0) % Monocytes % (0.0-12.0) % Eosinophils % (0.00-5.0) % Basophils % (0.0-0.4) % Absolute Granulocytes (1.4-6.9) x10^3/uL Basophils # (0-0.4) x10^3/uL PT (9.4-12.5) SECONDS INR (0.8-3.0) APTT (25.1-36.5) SECONDS Sodium (137-145) mmol/L Potassium (3.5-5.1) mmol/L Chloride (98-107) mmol/L Carbon Dioxide (22-30) mmol/L Anion Gap (5-15) MEQ/L BUN (9-20) mg/dL Creatinine (0.66-1.25) mg/dL Estimated GFR ML/MIN Glucose (74-106) mg/dL Lactic Acid (0.4-2.0) Calcium (8.4-10.2) mg/dL Magnesium (1.6-2.3) mg/dL Total Bilirubin (0.2-1.3) mg/dL AST (17-59) U/L ALT (0-50) U/L Alkaline Phosphatase (38-126) U/L Troponin I < 0.012 (0.000-0.034) ng/mL NT-Pro-B Natriuret Pep (0-900) pg/mL Serum Total Protein (6.3-8.2) g/dL Albumin (3.5-5.0) g/dL Urinalys Dipstick Clnc MAIN LAB Urine Color YELLOW (YELLOW) Urine Appearance CLEAR (CLEAR) Urine pH 6.0 (5-6) Ur Specific [place] 1.010 (1.005-1.025) POC Urine Protein Conf NEGATIVE (Negative) Urine Ketones NEGATIVE (NEGATIVE) Urine Nitrite NEGATIVE (NEGATIVE) Urine Bilirubin NEGATIVE (NEGATIVE) Urine Urobilinogen 0.2 (0-1) mg/dL Urine Leukocytes NEGATIVE (NEGATIVE) Urine WBC (Auto) NONE (0-5) /HPF Urine RBC (Auto) 0-2 (0-2) /HPF U Hyaline Cast (Auto) 0-2 (0-2) /LPF U Epithel Cells (Auto) NONE (FEW) /HPF Urine Bacteria (Auto) NONE (NEGATIVE) /HPF Urine RBC NEGATIVE (0-5) Froylan/ul Amorphous Crystals FEW (NEGATIVE) /HPF Ur Culture Indicated? NO Urine Glucose 250 (NEGATIVE) mg/dL Influenza Type A Ag NEGATIVE (NEGATIVE) Influenza Type B Ag NEGATIVE (NEGATIVE) RSV (PCR) NEGATIVE (Negative) SARS-CoV-2 (PCR) NEGATIVE (NEGATIVE) 02/16/22 02/16/22 02/16/22 Range/Units 16:50 16:50 16:50 WBC (4.0-10.5) x10^3/uL RBC (4.1-5.6) x10^6/uL Hgb (12.5-18.0) g/dL Hct (42-50) % MCV (78-100) fL MCH (26-32) pg MCHC (32-36) g/dL RDW (11.5-14.0) % Plt Count (150-450) x10^3/uL MPV (7.5-11.0) fL Gran % (36.0-66.0) % Immature Gran % (Auto) (0.00-0.4) % Nucleat RBC Rel Count (0.00-0.1) % Eos # (Auto) (0-0.5) x10^3/uL Immature Gran # (Auto) (0.00-0.03) x10^3u/L Absolute Lymphs (auto) (1.0-4.6) x10^3/uL Absolute Monos (auto) (0.0-1.3) x10^3/uL Absolute Nucleated RBC (0.00-0.01) x10^3u/L Lymphocytes % (24.0-44.0) % Monocytes % (0.0-12.0) % Eosinophils % (0.00-5.0) % Basophils % (0.0-0.4) % Absolute Granulocytes (1.4-6.9) x10^3/uL Basophils # (0-0.4) x10^3/uL PT 20.9 H (9.4-12.5) SECONDS INR 2.11 (0.8-3.0) APTT 66.6 H (25.1-36.5) SECONDS Sodium 133 L (137-145) mmol/L Potassium 4.0 (3.5-5.1) mmol/L Chloride 97 L (98-107) mmol/L Carbon Dioxide 28 (22-30) mmol/L Anion Gap 11.7 (5-15) MEQ/L BUN 19 (9-20) mg/dL Creatinine 1.38 H (0.66-1.25) mg/dL Estimated GFR 54.3 ML/MIN Glucose 198 H (74-106) mg/dL Lactic Acid (0.4-2.0) Calcium 8.8 (8.4-10.2) mg/dL Magnesium 1.9 (1.6-2.3) mg/dL Total Bilirubin 1.00 (0.2-1.3) mg/dL AST 38 (17-59) U/L ALT 49 (0-50) U/L Alkaline Phosphatase 147 H (38-126) U/L Troponin I < 0.012 (0.000-0.034) ng/mL NT-Pro-B Natriuret Pep 358 (0-900) pg/mL Serum Total Protein 7.2 (6.3-8.2) g/dL Albumin 4.2 (3.5-5.0) g/dL Urinalys Dipstick Clnc Urine Color (YELLOW) Urine Appearance (CLEAR) Urine pH (5-6) Ur Specific [place] (1.005-1.025) POC Urine Protein Conf (Negative) Urine Ketones (NEGATIVE) Urine Nitrite (NEGATIVE) Urine Bilirubin (NEGATIVE) Urine Urobilinogen (0-1) mg/dL Urine Leukocytes (NEGATIVE) Urine WBC (Auto) (0-5) /HPF Urine RBC (Auto) (0-2) /HPF U Hyaline Cast (Auto) (0-2) /LPF U Epithel Cells (Auto) (FEW) /HPF Urine Bacteria (Auto) (NEGATIVE) /HPF Urine RBC (0-5) Froylan/ul Amorphous Crystals (NEGATIVE) /HPF Ur Culture Indicated? Urine Glucose (NEGATIVE) mg/dL Influenza Type A Ag (NEGATIVE) Influenza Type B Ag (NEGATIVE) RSV (PCR) (Negative) SARS-CoV-2 (PCR) (NEGATIVE) 02/16/22 02/16/22 Range/Units 16:50 16:43 WBC 10.8 H (4.0-10.5) x10^3/uL RBC 3.74 L (4.1-5.6) x10^6/uL Hgb 11.4 L (12.5-18.0) g/dL Hct 36.1 L (42-50) % MCV 96.5 (78-100) fL MCH 30.5 (26-32) pg MCHC 31.6 L (32-36) g/dL RDW 13.3 (11.5-14.0) % Plt Count 150 (150-450) x10^3/uL MPV 12.4 H (7.5-11.0) fL Gran % 87.0 H (36.0-66.0) % Immature Gran % (Auto) 0.8 H (0.00-0.4) % Nucleat RBC Rel Count 0.0 (0.00-0.1) % Eos # (Auto) 0.16 (0-0.5) x10^3/uL Immature Gran # (Auto) 0.09 H (0.00-0.03) x10^3u/L Absolute Lymphs (auto) 0.48 L (1.0-4.6) x10^3/uL Absolute Monos (auto) 0.62 (0.0-1.3) x10^3/uL Absolute Nucleated RBC 0.00 (0.00-0.01) x10^3u/L Lymphocytes % 4.4 L (24.0-44.0) % Monocytes % 5.7 (0.0-12.0) % Eosinophils % 1.5 (0.00-5.0) % Basophils % 0.6 (0.0-0.4) % Absolute Granulocytes 9.42 H (1.4-6.9) x10^3/uL Basophils # 0.07 (0-0.4) x10^3/uL PT (9.4-12.5) SECONDS INR (0.8-3.0) APTT (25.1-36.5) SECONDS Sodium (137-145) mmol/L Potassium (3.5-5.1) mmol/L Chloride (98-107) mmol/L Carbon Dioxide (22-30) mmol/L Anion Gap (5-15) MEQ/L BUN (9-20) mg/dL Creatinine (0.66-1.25) mg/dL Estimated GFR ML/MIN Glucose (74-106) mg/dL Lactic Acid 1.9 (0.4-2.0) Calcium (8.4-10.2) mg/dL Magnesium (1.6-2.3) mg/dL Total Bilirubin (0.2-1.3) mg/dL AST (17-59) U/L ALT (0-50) U/L Alkaline Phosphatase (38-126) U/L Troponin I (0.000-0.034) ng/mL NT-Pro-B Natriuret Pep (0-900) pg/mL Serum Total Protein (6.3-8.2) g/dL Albumin (3.5-5.0) g/dL Urinalys Dipstick Clnc Urine Color (YELLOW) Urine Appearance (CLEAR) Urine pH (5-6) Ur Specific [place] (1.005-1.025) POC Urine Protein Conf (Negative) Urine Ketones (NEGATIVE) Urine Nitrite (NEGATIVE) Urine Bilirubin (NEGATIVE) Urine Urobilinogen (0-1) mg/dL Urine Leukocytes (NEGATIVE) Urine WBC (Auto) (0-5) /HPF Urine RBC (Auto) (0-2) /HPF U Hyaline Cast (Auto) (0-2) /LPF U Epithel Cells (Auto) (FEW) /HPF Urine Bacteria (Auto) (NEGATIVE) /HPF Urine RBC (0-5) Froylan/ul Amorphous Crystals (NEGATIVE) /HPF Ur Culture Indicated? Urine Glucose (NEGATIVE) mg/dL Influenza Type A Ag (NEGATIVE) Influenza Type B Ag (NEGATIVE) RSV (PCR) (Negative) SARS-CoV-2 (PCR) (NEGATIVE) - Progress Progress: improved Progress Note: 02/16/22 19:48 2L NS bolus w systolic BP rising to >100 Pt states feeling much better No BP lower than 96 in ER No fever/focal weakness/chest pain/dyspnea in ER 02/16/22 20:35 Norco5 po x1 for back pain 02/16/22 20:49 BP elvated toward end of visit but decreasing Counseled pt/family regarding: lab results, diagnosis, rad results - Departure Departure Disposition: Home Clinical Impression: Hypotension Condition: Stable Critical Care Time: No Referrals: ROSANNA KYLE MD [Primary Care Provider] - Follow up/PCP as directed Instructions: Low Blood Pressure (DC) Additional Instructions: Follow up with your family MD Return to ER for persistent systolic blood pressure less than 90, focal weakness, shortness of breath, or chest pain
[2022-02-16 16:58] LABS: Absolute Neutrophil Ct (ANC) 9.42 x10^3/uL (1.4-6.9); Basophil (Absolute #) 0.07 x10^3/uL (0-0.4); Eosinophil % 1.5 % (0.00-5.0); Eosinophil (Absolute #) 0.16 x10^3/uL (0-0.5); Hematocrit 36.1 % (42-50); Hemoglobin 11.4 g/dL (12.5-18.0); Lymphocyte (Absolute #) 0.48 x10^3/uL (1.0-4.6); Lymphocytes % 4.4 % (24.0-44.0); Mean Cell Volume 96.5 fL (78-100); Mean Corpuscular Hemoglobin 30.5 pg (26-32); Mean Corpuscular Hgb Concent. 31.6 g/dL (32-36); Mean Platelet Volume 12.4 fL (7.5-11.0); Monocyte (Absolute #) 0.62 x10^3/uL (0.0-1.3); Monocytes % 5.7 % (0.0-12.0); Platelet Count 150 x10^3/uL (150-450); Red Blood Count 3.74 x10^6/uL (4.1-5.6); Red Cell Distribution Width 13.3 % (11.5-14.0); White Blood Count 10.8 x10^3/uL (4.0-10.5)
[2022-02-16 17:20] LABS: INR 2.11 (0.8-3.0); PROTIME 20.9 SECONDS (9.4-12.5); PTT 66.6 SECONDS (25.1-36.5)
[2022-02-16 17:27] LABS: ALBUMIN 4.2 g/dL (3.5-5.0); ANION GAP 11.7 MEQ/L (5-15); Calcium 8.8 mg/dL (8.4-10.2); Creatinine 1 1.38 mg/dL (0.66-1.25); EST GLOMERULAR FILTRATION RATE 54.3 ML/MIN; MAGNESIUM 1.9 mg/dL (1.6-2.3); Total Protein 7.2 g/dL (6.3-8.2)
[2022-02-16 17:34] LABS: INFLUENZA A NEGATIVE (NEGATIVE); INFLUENZA B NEGATIVE (NEGATIVE); RESPIRATORY SYNCTIAL VIRUS NEGATIVE (Negative); SARS-CoV-2 Xpert Express NEGATIVE (NEGATIVE)
[2022-02-16 19:03] LABS: Amourphous Crystal FEW /HPF (NEGATIVE); Hyaline Casts 0-2 /LPF (0-2); RBC 0-2 /HPF (0-2)
[2022-02-16 19:06] LABS: Appearance CLEAR (CLEAR); Glucose 250 mg/dL (NEGATIVE)
[2022-02-16 19:07] LABS: Bilirubin NEGATIVE (NEGATIVE); Dipstick done @ ? MAIN LAB; Ketones NEGATIVE (NEGATIVE); Nitrite NEGATIVE (NEGATIVE); Protein,Urine Dip NEGATIVE (Negative); RBC NEGATIVE Ery/ul (0-5); Urine Cultured Indicated? NO; Urobilinogen 0.2 mg/dL (0-1)
[2022-02-16 20:31] VITALS: O2SAT 100
[2022-02-16] MEDS ORDERED: NORCO 5/325 MG PO ONE (20:35)
[2022-02-16] MEDS ORDERED: NORCO 5/325 MG ONE (20:36)
[2022-02-16 20:55] VITALS: BP 149/85; PULSE 64
--- NOTE | 2022-02-16 23:13 | XRAY ---
Indication: Low blood pressure. Comparison: September 16, 2021 Portable chest unchanged again demonstrating COPD and a few tiny calcified granulomas. Heart not enlarged again with CABG. Bony thorax intact again with osteopenia, degenerative changes, and old right clavicle fracture. No new/acute findings.
== END 2022-02-16 20:51 | disposition home or self-care (01) ==
LOC: ED 15:46
DX: I95.9 Hypotension, unspecified (principal); I25.10 Atherosclerotic heart disease of native coronary artery without angina pectoris; E11.9 Type 2 diabetes mellitus without complications; I25.2 Old myocardial infarction; R53.1 Weakness; Z95.5 Presence of coronary angioplasty implant and graft; Z79.899 Other long term (current) drug therapy; Z20.828 Contact with and (suspected) exposure to other viral communicable diseases
CPT/HCPCS: 0241U; 36000; 36415; 71045; 80053; 81015; 83605; 83735; 83880; 84484; 85025; 85610; 85730; 93005; 99284; A9270-GY

== ENCOUNTER 2022-07-04 15:05 | Emergency (ER) | payer MEDICARE ==
[2022-07-04] MEDS ORDERED: Sodium Chloride 0.9% 1000 ML 1,000 ML IV STA (15:28)
[2022-07-04] MEDS ORDERED: Sodium Chloride 0.9% 1000 ML 1,000 ML ONE (15:31)
[2022-07-04 15:40] LABS: Absolute Neutrophil Ct (ANC) 6.79 x10^3/uL (1.4-6.9); BASOPHIL % 0.5 % (0.0-0.4); Basophil (Absolute #) 0.04 x10^3/uL (0-0.4); Eosinophil % 1.4 % (0.00-5.0); Eosinophil (Absolute #) 0.11 x10^3/uL (0-0.5); Hematocrit 34.5 % (42-50); Hemoglobin 11.3 g/dL (12.5-18.0); IMMATURE GRAN # 0.09 x10^3u/L (0.00-0.03); IMMATURE GRAN % 1.1 % (0.00-0.4); Lymphocyte (Absolute #) 0.59 x10^3/uL (1.0-4.6); Lymphocytes % 7.3 % (24.0-44.0); Mean Cell Volume 93.2 fL (78-100); Mean Corpuscular Hemoglobin 30.5 pg (26-32); Mean Corpuscular Hgb Concent. 32.8 g/dL (32-36); Mean Platelet Volume 11.9 fL (7.5-11.0); Monocyte (Absolute #) 0.46 x10^3/uL (0.0-1.3); Monocytes % 5.7 % (0.0-12.0); Platelet Count 205 x10^3/uL (150-450); Red Cell Distribution Width 13.5 % (11.5-14.0); White Blood Count 8.1 x10^3/uL (4.0-10.5)
--- NOTE | 2022-07-04 15:51 | ERPHSYRPT ---
- History of Present Illness Time Seen by Provider: 07/04/22 15:06 Source: patient Exam Limitations: no limitations Patient Subjective Stated Complaint: Hypotension Triage Nursing Assessment: Patient brought into ED per w/c and transferred to bed with assist of 1. Patient A+O X 3. Patient's skin pink, warm and dry. Patient complains of hypotension for the past few days. Patient complains of increased weakness. Patient denies pain or discomfort. Physician History: Patient is here with increased weakness over the past few days. No falls or trauma. Patient states that they have a history of chronic hypertension. Cesar veras is on blood pressure raising medication for this. No other fever or chills. Only symptoms is dizziness and weakness. No focal neurological deficits. No numbness, wheezing, chest pain, shortness of breath. Patient is alert and oriented. Patient is at baseline per the adult daughter. Allergies/Adverse Reactions: No Known Drug Allergies Allergy (Verified 07/04/22 15:14) Home Medications: Albuterol Sulfate [Albuterol Sulfate Hfa] 2 puff IH QID 10/24/20 [History] Budesonide [Budesonide Dr] 3 mg PO DAILY 10/24/20 [History] Hydrocodone/Acetaminophen [Hydrocodone-Acetamin 10-325 mg] 10 tab PO BIDPRN PRN 10/24/20 [History] Insulin Detemir [Levemir] 11 units SQ HS 10/24/20 [History] PANTOPRAZOLE 40 mg Tablet [Protonix 40MG Tablet] 40 mg PO DAILY 10/24/20 [History] Dronedarone Hydrochloride 400* [Multaq 400 MG] 200 mg PO BID 09/16/21 [History] Insulin Aspart (Niacinamide) [Fiasp 100 Unit/ml Vial] 16 units SQ LUNCH 09/16/21 [History] Insulin Aspart (Niacinamide) [Fiasp 100 Unit/ml Vial] 18 unit SQ BREAKFAST 09/16/21 [History] Insulin Aspart (Niacinamide) [Fiasp 100 Unit/ml Vial] 21 units SQ EVENING MEAL 09/16/21 [History] Atorvastatin Calcium 20 mg PO QHS 01/01/22 [History] Tamsulosin HCl 0.4 mg [Flomax 0.4 MG] 0.4 mg PO DAILY 01/01/22 [History] Cyanocobalamin (Vitamin B-12) [Vitamin B-12] 1,000 mcg PO DAILY 01/02/22 [History] Dronedarone Hydrochloride 400* [Multaq 400 MG] 1 tab PO BID 02/16/22 [His tory] Insulin Aspart (Niacinamide) [Fiasp 100 Unit/ml Vial] 02/16/22 [History] Hx Tetanus, Diphtheria Vaccination/Date Given: Yes Hx Influenza Vaccination/Date Given: Yes Hx Pneumococcal Vaccination/Date Given: No Immunizations Up to Date: Yes Travel Risk - International Travel Have you traveled outside of the country in past 3 weeks: No - Coronavirus Screening Are you exhibiting any of the following symptoms?: No Close contact with a COVID-19 positive Pt in past 14-21 Days: No - Vaccine Status Have you recieved a Covid-19 vaccination: Yes [employer]: [employer] - Vaccination Dates Date of 2cond Vaccination (if applicable): 2019 Comment: plus boosters - Review of Systems Constitutional: Other (Potential and dizziness), No Fever, No Chills Eyes: No Symptoms Ears, Nose, & Throat: No Symptoms Respiratory: No Cough, No Dyspnea Cardiac: No Chest Pain, No Edema, No Syncope Abdominal/Gastrointestinal: No Abdominal Pain, No Nausea, No Vomiting, No Diarrhea Genitourinary Symptoms: No Dysuria Musculoskeletal: No Back Pain, No Neck Pain Skin: No Rash Neurological: No Dizziness, No Focal Weakness, No Sensory Changes Psychological: No Symptoms Endocrine: No Symptoms All Other Systems: Reviewed and Negative - Past Medical History Pertinent Past Medical History: Yes Neurological History: Stroke ENT History: Other Cardiac History: Coronary Artery Disease Respiratory History: No Pertinent History Endocrine Medical History: Diabetes Type II Musculoskeletal History: Arthritis GI Medical History: Crohns Disease History: No Pertinent History Psycho-Social History: No Pertinent History Male Reproductive Disorders: Prostate Problems Other Medical History: retinopathy no residual on stroke, hypotension, - Past Surgical History Past Surgical History: Yes Neuro Surgical History: No Pertinent History Cardiac: CABG, Cardiac Catheterization, Cardiac Stent, Other Respiratory: No Pertinent History Gastrointestinal: Appendectomy, Other Genitourinary: No Pertinent History Musculoskeletal: Orthopedic Surgery Male Surgical History: No Pertinent History Other Surgical History: 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, intestinal resection, triple bypass - Social History Smoking Status: Former smoker How long have you smoked: years Exposure to second hand smoke: Yes Drug Use: none Patient Lives Alone: No (daughter) Significant Family History: no pertinent family hx - Nursing Vital Signs Nursing Vital Signs: Initial Vital Signs Temperature 98.2 F 07/04/22 15:15 Pulse Rate 68 07/04/22 15:15 Respiratory Rate 20 07/04/22 15:15 Blood Pressure 96/52 07/04/22 15:15 O2 Sat by Pulse Oximetry 96 07/04/22 15:15 Pain Scale Pain Intensity 0 - Physical Exam General Appearance: no apparent distress, alert Eye Exam: PERRL/EOMI, eyes nml inspection Ears, Nose, Throat Exam: normal ENT inspection, TMs normal, pharynx normal, moist mucous membranes Neck Exam: normal inspection, non-tender, supple, full range of motion Respiratory Exam: normal breath sounds, lungs clear, No respiratory distress Cardiovascular Exam: regular rate/rhythm, normal heart sounds, normal peripheral pulses Gastrointestinal/Abdomen Exam: soft, normal bowel sounds, No tenderness, No mass Back Exam: normal inspection, normal range of motion, No CVA tenderness, No vertebral tenderness Extremity Exam: normal inspection, normal range of motion, pelvis stable Neurologic Exam: alert, oriented x 3, cooperative, normal mood/affect, nml cerebellar function, nml station & gait, sensation nml, No motor deficits Skin Exam: normal color, warm, dry, No rash Lymphatic Exam: No adenopathy SpO2: 96 - Course Nursing assessment & vital signs reviewed: Yes EKG Interpreted by Me: Sinus Rhythm Ordered Tests: Active Orders 24 hr Category Date Time Status EKG-ER Only STAT Care 07/04/22 15:28 Active IV Insertion STAT Care 07/04/22 15:28 Active CHEST 1 VIEW (PORTABLE) Stat Exams 07/04/22 15:29 Completed CBC W DIFF Stat Lab 07/04/22 04:20 Completed CMP Stat Lab 07/04/22 04:20 Completed LIPASE Stat Lab 07/04/22 04:20 Completed TROPONIN Q4H Lab 07/04/22 04:20 Completed TROPONIN Q4H Lab 07/04/22 19:30 Ordered TROPONIN Q4H Lab 07/04/22 23:30 Ordered UA W/RFX UR CULTURE Stat Lab 07/04/22 16:50 Ordered Medication Summary Discontinued Medications Generic Name Dose Route Start Last Admin Trade Name Freq PRN Reason Stop Dose Admin Sodium Chloride 1,000 mls @ 999 mls/hr 07/04/22 15:28 07/04/22 16:48 Sodium Chloride 0.9% 1000 Ml IV 07/04/22 16:28 Infused .Q1H1M STA Infusion Sodium Chloride Confirm 07/04/22 15:31 Sodium Chloride 0.9% 1000 Ml Administered 07/04/22 15:32 Dose 1,000 mls @ ud .ROUTE .K-MED ONE Lab/Rad Data: Laboratory Result Diagrams 07/04/22 04:20 07/04/22 04:20 Laboratory Results 07/04/22 07/04/22 07/04/22 Range/Units 04:20 04:20 04:20 WBC 8.1 (4.0-10.5) x10^3/uL RBC 3.70 L (4.1-5.6) x10^6/uL Hgb 11.3 L (12.5-18.0) g/dL Hct 34.5 L (42-50) % MCV 93.2 (78-100) fL MCH 30.5 (26-32) pg MCHC 32.8 (32-36) g/dL RDW 13.5 (11.5-14.0) % Plt Count 205 (150-450) x10^3/uL MPV 11.9 H (7.5-11.0) fL Gran % 84.0 H (36.0-66.0) % Immature Gran % (Auto) 1.1 H (0.00-0.4) % Nucleat RBC Rel Count 0.0 (0.00-0.1) % Eos # (Auto) 0.11 (0-0.5) x10^3/uL Immature Gran # (Auto) 0.09 H (0.00-0.03) x10^3u/L Absolute Lymphs (auto) 0.59 L (1.0-4.6) x10^3/uL Absolute Monos (auto) 0.46 (0.0-1.3) x10^3/uL Absolute Nucleated RBC 0.00 (0.00-0.01) x10^3u/L Lymphocytes % 7.3 L (24.0-44.0) % Monocytes % 5.7 (0.0-12.0) % Eosinophils % 1.4 (0.00-5.0) % Basophils % 0.5 (0.0-0.4) % Absolute Granulocytes 6.79 (1.4-6.9) x10^3/uL Basophils # 0.04 (0-0.4) x10^3/uL Sodium 132 L (137-145) mmol/L Potassium 3.7 (3.5-5.1) mmol/L Chloride 96 L (98-107) mmol/L Carbon Dioxide 26 (22-30) mmol/L Anion Gap 14.6 (5-15) MEQ/L BUN 26 H (9-20) mg/dL Creatinine 1.24 (0.66-1.25) mg/dL Estimated GFR > 60.0 ML/MIN Glucose 135 H (74-106) mg/dL Calcium 9.0 (8.4-10.2) mg/dL Total Bilirubin 0.60 (0.2-1.3) mg/dL AST 24 (17-59) U/L ALT 29 (0-50) U/L Alkaline Phosphatase 113 (38-126) U/L Troponin I < 0.012 (0.000-0.034) ng/mL Serum Total Protein 6.3 (6.3-8.2) g/dL Albumin 3.7 (3.5-5.0) g/dL Lipase 23 (23-300) U/L - Progress Progress: improved Progress Note: 07/04/22 15:50 differential diagnosis includes: PNA, STEMI, NSTEMI, other infection, musculoskeletal pain, pneumothorax - We'll obtain basic labs, fluids, EKG, troponin, chest x-ray - I feel comfortable with one time negative troponin given symptoms have improved and started greater then 6 hours ago. - EKG shows no ST changes - my read. See full read below. - O2 saturations consistently greater than 95%. - CXR shows no pneumonia, pneumothorax - my read - no other obvious lab abnormalities 07/04/22 16:51 Blood pressure improved with fluids. Patient stable without difficulty ambulating. No longer dizzy. No signs of severe infection. No pneumonia, white blood cell count normal. Normal electrolytes. Plan for discharge home at this point time. Patient will need to return here sooner for new or changing symptoms. I did discuss all this with the family. Feel comfortable being discharged home. Counseled pt/family regarding: lab results, diagnosis, need for follow-up, rad results - Departure Departure Disposition: Home Clinical Impression: Chronic hypotension Condition: Stable Critical Care Time: No Referrals: JOSE ALBERTO GRAJEDA [Primary Care Provider] - Follow up/PCP as directed Instructions: Low Blood Pressure (DC)
[2022-07-04 16:05] LABS: ALBUMIN 3.7 g/dL (3.5-5.0); ALKALINE PHOSPHATASE 113 U/L (38-126); ANION GAP 14.6 MEQ/L (5-15); BLOOD UREA NITROGEN 26 mg/dL (9-20); CHLORIDE 96 mmol/L (98-107); Carbon Dioxide 26 mmol/L (22-30); Creatinine 1 1.24 mg/dL (0.66-1.25); EST GLOMERULAR FILTRATION RATE > 60.0 ML/MIN; Glucose 135 mg/dL (74-106); LIPASE 23 U/L (23-300); Potassium 3.7 mmol/L (3.5-5.1); SGOT/AST 24 U/L (17-59); SGPT/ALT 29 U/L (0-50); SODIUM 132 mmol/L (137-145); Total Protein 6.3 g/dL (6.3-8.2)
--- NOTE | 2022-07-04 16:33 | XRAY ---
Indication: Cough. Pneumonia. Comparison: February 16, 2022 Portable chest again demonstrates COPD and a few left lung calcified granulomas. No focal infiltrate, consolidation, or large effusion. Heart not enlarged again with CABG. Bony thorax intact again with osteopenia, degenerative changes, and old right clavicle fracture. Impression: Continued nonacute chest with chronic features.
[2022-07-04 16:55] VITALS: BP 129/63; PULSE 61; O2SAT 98
[2022-07-04 17:39] LABS: Slide Review 1 YES
== END 2022-07-04 17:17 | disposition home or self-care (01) ==
LOC: ED 15:05
DX: I95.89 Other hypotension (principal); R53.1 Weakness; R42 Dizziness and giddiness; E11.9 Type 2 diabetes mellitus without complications; Z79.4 Long term (current) use of insulin; Z79.899 Other long term (current) drug therapy
CPT/HCPCS: 36000; 36415; 71045; 80053; 83690; 84484; 85025; 93005; 96360; 99284

== ENCOUNTER 2022-08-05 20:21 | Emergency (ER) | payer MEDICARE ==
[2022-08-05] MEDS ORDERED: Sodium Chloride 0.9% 1000 ML 1,000 ML IV STA (20:53)
--- NOTE | 2022-08-05 20:53 | ERPHSYRPT ---
- History of Present Illness Time Seen by Provider: 08/05/22 20:53 Source: patient, family Exam Limitations: no limitations Patient Subjective Stated Complaint: pt states he has been increasingly weak over last 3-4 days. daughter told ems that he had some falls at home. pt states he slid from bed a few times. denies any falls with injury. Triage Nursing Assessment: pt alert and oriented, speech slow, pt states his normal after stroke. answers questions approp. pt arrive per ambulance and transfers to [facility] with assist of 3. pupils reactive. pt moves all extremities. Physician History: Patient BIBA for a 2-3 day hx of increased weakness. He lives at home w/ family. Daughter reports 2 episodes where he became so weak that he slid to the ground, no head injury, no LOC. He denies f/c/n/v, abd pain, cp, palpitations, sob, dysria, speech difficulty or focal weakness. Daughter reports decreased urination over the past few days as well. Timing/Duration: day(s) (3) Severity: mild Associated Symptoms: weakness, No nausea, No vomiting, No abdominal pain, No shortness of breath, No cough, No chest pain, No fever Allergies/Adverse Reactions: No Known Drug Allergies Allergy (Verified 08/05/22 20:49) Home Medications: Albuterol Sulfate [Albuterol Sulfate Hfa] 2 puff IH QID 10/24/20 [History] Budesonide [Budesonide Dr] 3 mg PO DAILY 10/24/20 [History] Hydrocodone/Acetaminophen [Hydrocodone-Acetamin 10-325 mg] 10 tab PO BIDPRN PRN 10/24/20 [History] Insulin Detemir [Levemir] 11 units SQ HS 10/24/20 [History] PANTOPRAZOLE 40 mg Tablet [Protonix 40MG Tablet] 40 mg PO DAILY 10/24/20 [History] Dronedarone Hydrochloride 400* [Multaq 400 MG] 200 mg PO BID 09/16/21 [His tory] Insulin Aspart (Niacinamide) [Fiasp 100 Unit/ml Vial] 16 units SQ LUNCH 09/16/21 [History] Insulin Aspart (Niacinamide) [Fiasp 100 Unit/ml Vial] 18 unit SQ BREAKFAST 09/16/21 [History] Insulin Aspart (Niacinamide) [Fiasp 100 Unit/ml Vial] 21 units SQ EVENING MEAL 09/16/21 [History] Atorvastatin Calcium 20 mg PO QHS 01/01/22 [History] Tamsulosin HCl 0.4 mg [Flomax 0.4 MG] 0.4 mg PO DAILY 01/01/22 [History] Cyanocobalamin (Vitamin B-12) [Vitamin B-12] 1,000 mcg PO DAILY 01/02/22 [Histo ry] Dronedarone Hydrochloride 400* [Multaq 400 MG] 1 tab PO BID 02/16/22 [History] Insulin Aspart (Niacinamide) [Fiasp 100 Unit/ml Vial] 02/16/22 [History] Hx Tetanus, Diphtheria Vaccination/Date Given: Yes Hx Influenza Vaccination/Date Given: Yes Hx Pneumococcal Vaccination/Date Given: Yes Immunizations Up to Date: Yes Travel Risk - International Travel Have you traveled outside of the country in past 3 weeks: No - Coronavirus Screening Are you exhibiting any of the following symptoms?: No Close contact with a COVID-19 positive Pt in past 14-21 Days: No - Vaccine Status Have you recieved a Covid-19 vaccination: 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: [employer] - Vaccination Dates Date of 2cond Vaccination (if applicable): 2019 - Review of Systems Constitutional: Weakness, No Fever, No Chills Eyes: No Symptoms Ears, Nose, & Throat: No Symptoms Respiratory: No Symptoms Cardiac: No Symptoms Abdominal/Gastrointestinal: No Symptoms Genitourinary Symptoms: No Symptoms Musculoskeletal: No Symptoms Skin: No Symptoms Neurological: No Focal Weakness, No Gait Changes, No Headache, No Paralysis, No Parasthesia, No Speech Changes Psychological: No Symptoms Endocrine: No Symptoms Hematologic/Lymphatic: No Symptoms Immunological/Allergic: No Symptoms All Other Systems: Reviewed and Negative - Past Medical History Pertinent Past Medical History: Yes Neurological History: Stroke ENT History: Other Cardiac History: Coronary Artery Disease Respiratory History: No Pertinent History Endocrine Medical History: Diabetes Type II Musculoskeletal History: Arthritis GI Medical History: Crohns Disease History: No Pertinent History Psycho-Social History: No Pertinent History Male Reproductive Disorders: Prostate Problems Other Medical History: retinopathy, hypotension, 2nd cva in march 2022 - Past Surgical History Past Surgical History: Yes Neuro Surgical History: No Pertinent History Cardiac: CABG, Cardiac Catheterization, Cardiac Stent, Other Respiratory: No Pertinent History Gastrointestinal: Appendectomy, Other Genitourinary: No Pertinent History Musculoskeletal: Orthopedic Surgery Male Surgical History: No Pertinent History Other Surgical History: 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, intestinal resection, triple bypass - Social History Smoking Status: Former smoker How long have you smoked: years Exposure to second hand smoke: Yes Drug Use: none Patient Lives Alone: No (daughter) Significant Family History: no pertinent family hx - Nursing Vital Signs Nursing Vital Signs: Initial Vital Signs Temperature 98.0 F 08/05/22 20:26 Pulse Rate 75 08/05/22 20:26 Respiratory Rate 16 08/05/22 20:26 Blood Pressure 127/66 08/05/22 20:26 O2 Sat by Pulse Oximetry 96 08/05/22 20:26 Pain Scale Pain Intensity 3 - Physical Exam General Appearance: no apparent distress, thin Eye Exam: PERRL/EOMI, eyes nml inspection Ears, Nose, Throat Exam: normal ENT inspection Neck Exam: normal inspection, non-tender, supple, full range of motion Respiratory Exam: normal breath sounds, lungs clear, airway intact, No respiratory distress Cardiovascular Exam: regular rate/rhythm, normal heart sounds, capillary refill <2 sec, No edema Gastrointestinal/Abdomen Exam: soft, normal bowel sounds, No tenderness, No distention, No mass, No guarding, No rebound Back Exam: other (abrasion left back), No CVA tenderness Extremity Exam: normal inspection, normal range of motion, No joint swelling, No swelling, No tenderness Neurologic Exam: alert, oriented x 3, cooperative, judge II-XII nml as tested, normal mood/affect, nml cerebellar function, sensation nml Skin Exam: normal color, warm, dry SpO2 Interpretation: normal SpO2: 96 O2 Delivery: Room Air - Course Nursing assessment & vital signs reviewed: Yes EKG Interpreted by Me: RATE (63), Sinus Rhythm, NORMAL AXIS, Right Bundle Branch Block, Non-specific ST Changes, Other ([place] 294) Ordered Tests: Active Orders 24 hr Category Date Time Status EKG-ER Only STAT Care 08/05/22 20:53 Active IV Insertion STAT Care 08/05/22 20:53 Active CBC W DIFF Stat Lab 08/05/22 20:59 Completed CK-Creatinine Phosphokinase Stat Lab 08/05/22 20:59 Completed CMP Stat Lab 08/05/22 20:59 Completed CULTURE,URINE Stat Lab 08/06/22 00:13 Ordered LIPASE Stat Lab 08/05/22 20:59 Completed Lactic Acid Stat Lab 08/05/22 21:00 Completed Lactic Acid Stat Lab 08/05/22 23:07 Completed MAGNESIUM Stat Lab 08/05/22 20:59 Completed NT PRO BNPII Stat Lab 08/05/22 20:59 Completed TROPONIN Q4H Lab 08/05/22 20:59 Completed TROPONIN Q4H Lab 08/06/22 01:00 Ordered TROPONIN Q4H Lab 08/06/22 05:00 Ordered UA W/RFX UR CULTURE Stat Lab 08/05/22 21:52 Received Medication Summary Discontinued Medications Generic Name Dose Route Start Last Admin Trade Name Freq PRN Reason Stop Dose Admin Sodium Chloride 1,000 mls @ 999 mls/hr 08/05/22 20:53 08/05/22 21:06 Sodium Chloride 0.9% 1000 Ml IV 08/05/22 21:53 999 mls/hr .Q1H1M STA Administration Sodium Chloride Confirm 08/05/22 21:03 Sodium Chloride 0.9% 1000 Ml Administered 08/05/22 21:04 Dose 1,000 mls @ ud .ROUTE .STK-MED ONE Lab/Rad Data: Laboratory Result Diagrams 08/05/22 20:59 08/05/22 20:59 Laboratory Results 08/05/22 08/05/22 08/05/22 Range/Units 23:07 21:52 21:00 WBC (4.0-10.5) x10^3/uL RBC (4.1-5.6) x10^6/uL Hgb (12.5-18.0) g/dL Hct (42-50) % MCV (78-100) fL MCH (26-32) pg MCHC (32-36) g/dL RDW (11.5-14.0) % Plt Count (150-450) x10^3/uL MPV (7.5-11.0) fL Gran % (36.0-66.0) % Immature Gran % (Auto) (0.00-0.4) % Nucleat RBC Rel Count (0.00-0.1) % Eos # (Auto) (0-0.5) x10^3/uL Immature Gran # (Auto) (0.00-0.03) x10^3u/L Absolute Lymphs (auto) (1.0-4.6) x10^3/uL Absolute Monos (auto) (0.0-1.3) x10^3/uL Absolute Nucleated RBC (0.00-0.01) x10^3u/L Lymphocytes % (24.0-44.0) % Monocytes % (0.0-12.0) % Eosinophils % (0.00-5.0) % Basophils % (0.0-0.4) % Absolute Granulocytes (1.4-6.9) x10^3/uL Basophils # (0-0.4) x10^3/uL Sodium (137-145) mmol/L Potassium (3.5-5.1) mmol/L Chloride (98-107) mmol/L Carbon Dioxide (22-30) mmol/L Anion Gap (5-15) MEQ/L BUN (9-20) mg/dL Creatinine (0.66-1.25) mg/dL Estimated GFR ML/MIN Glucose (74-106) mg/dL Lactic Acid 1.1 3.3 H (0.4-2.0) Calcium (8.4-10.2) mg/dL Magnesium (1.6-2.3) mg/dL Total Bilirubin (0.2-1.3) mg/dL AST (17-59) U/L ALT (0-50) U/L Alkaline Phosphatase (38-126) U/L Creatine Kinase (55-170) U/L Troponin I (0.000-0.034) ng/mL NT-Pro-B Natriuret Pep (<300) pg/mL Serum Total Protein (6.3-8.2) g/dL Albumin (3.5-5.0) g/dL Lipase (23-300) U/L Urine Color Yellow (Yellow) Urine Appearance Clear (Clear) Urine pH 5.5 (4.6-8.0) Ur Specific [place] 1.015 (1.005-1.030) Urine Protein Negative (Negative) Urine Glucose (UA) 500 A (Negative) mg/dL Urine Ketones Negative (Negative) Urine Blood Negative (Negative) Urine Nitrite Negative (Negative) Urine Bilirubin Negative (Negative) Urine Urobilinogen 0.2 (0.2) mg/dL Ur Leukocyte Esterase Negative (Negative) U Hyaline Cast (Auto) NONE SEEN (0-2) /LPF Urine Microscopic RBC 0-2 (0-5) /HPF Urine Microscopic WBC 0-2 (0-5) /HPF Ur Epithelial Cells None Seen (None Seen) /HPF Urine Bacteria None Seen (None Seen) /HPF Urine Culture Reflexed ORDERED SEPARATELY (NO) 08/05/22 08/05/22 08/05/22 Range/Units 20:59 20:59 20:59 WBC 10.2 (4.0-10.5) x10^3/uL RBC 4.07 L (4.1-5.6) x10^6/uL Hgb 12.8 (12.5-18.0) g/dL Hct 38.6 L (42-50) % MCV 94.8 (78-100) fL MCH 31.4 (26-32) pg MCHC 33.2 (32-36) g/dL RDW 12.6 (11.5-14.0) % Plt Count 179 (150-450) x10^3/uL MPV 12.5 H (7.5-11.0) fL Gran % 87.6 H (36.0-66.0) % Immature Gran % (Auto) 0.6 H (0.00-0.4) % Nucleat RBC Rel Count 0.0 (0.00-0.1) % Eos # (Auto) 0.11 (0-0.5) x10^3/uL Immature Gran # (Auto) 0.06 H (0.00-0.03) x10^3u/L Absolute Lymphs (auto) 0.54 L (1.0-4.6) x10^3/uL Absolute Monos (auto) 0.49 (0.0-1.3) x10^3/uL Absolute Nucleated RBC 0.00 (0.00-0.01) x10^3u/L Lymphocytes % 5.3 L (24.0-44.0) % Monocytes % 4.8 (0.0-12.0) % Eosinophils % 1.1 (0.00-5.0) % Basophils % 0.6 (0.0-0.4) % Absolute Granulocytes 8.96 H (1.4-6.9) x10^3/uL Basophils # 0.06 (0-0.4) x10^3/uL Sodium 133 L (137-145) mmol/L Potassium 4.2 (3.5-5.1) mmol/L Chloride 94 L (98-107) mmol/L Carbon Dioxide 28 (22-30) mmol/L Anion Gap 15.3 H (5-15) MEQ/L BUN 22 H (9-20) mg/dL Creatinine 1.15 (0.66-1.25) mg/dL Estimated GFR > 60.0 ML/MIN Glucose 188 H (74-106) mg/dL Lactic Acid (0.4-2.0) Calcium 9.6 (8.4-10.2) mg/dL Magnesium 1.8 (1.6-2.3) mg/dL Total Bilirubin 1.00 (0.2-1.3) mg/dL AST 42 (17-59) U/L ALT 44 (0-50) U/L Alkaline Phosphatase 162 H (38-126) U/L Creatine Kinase 250 H (55-170) U/L Troponin I < 0.012 (0.000-0.034) ng/mL NT-Pro-B Natriuret Pep 588 (<300) pg/mL Serum Total Protein 7.3 (6.3-8.2) g/dL Albumin 4.3 (3.5-5.0) g/dL Lipase 21 L (23-300) U/L Urine Color (Yellow) Urine Appearance (Clear) Urine pH (4.6-8.0) Ur Specific Champion (1.005-1.030) Urine Protein (Negative) Urine Glucose (UA) (Negative) mg/dL Urine Ketones (Negative) Urine Blood (Negative) Urine Nitrite (Negative) Urine Bilirubin (Negative) Urine Urobilinogen (0.2) mg/dL Ur Leukocyte Esterase (Negative) U Hyaline Cast (Auto) (0-2) /LPF Urine Microscopic RBC (0-5) /HPF Urine Microscopic WBC (0-5) /HPF Ur Epithelial Cells (None Seen) /HPF Urine Bacteria (None Seen) /HPF Urine Culture Reflexed (NO) - Progress Progress: improved Progress Note: 08/06/22 00 Notable lab results Na 133, BUN 22, Cr 1.15, Glu 188, Mg 1.8 Lactate 3.3, down to 1.1 after 2L NS Troponin neg, EKG unremarkable CK 250 BNP 588, no PE findings of fluid overload UA pending Patient had to be straight cathed and 600cc was removed, will increase Flomax to 0.8mg QD and encourage patient to f/u w/ Urology. Counseled pt/family regarding: lab results, diagnosis, need for follow-up, rad results Medical Desision Making - Diagnostic Testing Diagnostic test were ordered, analyzed, and reviewed by me: Yes Radiological Interpretation: Interpreted by me - Risk of complications The pt has a mod risk of morbidity or mortality based on: Need for prescription drug management - Departure Clinical Impression: Weakness, Dehydration, Urinary hesitancy Condition: Good Critical Care Time: No Referrals: JOSE ALBERTO GRAJEDA [Primary Care Provider] - Follow up/PCP as directed JEFF RAYA DO [NON-STAFF PHY W/O PRIVILEGES] - Follow up/PCP as directed Instructions: Benign Prostatic Hyperplasia (Enlarged Prostate) (DC), Generalized Weakness (DC) Prescriptions: Tamsulosin HCl 0.4 mg [Flomax 0.4 MG] 0.8 mg PO DAILY #30 cap
[2022-08-05 21:03] LABS: Absolute Neutrophil Ct (ANC) 8.96 x10^3/uL (1.4-6.9); BASOPHIL % 0.6 % (0.0-0.4); Basophil (Absolute #) 0.06 x10^3/uL (0-0.4); Eosinophil % 1.1 % (0.00-5.0); Eosinophil (Absolute #) 0.11 x10^3/uL (0-0.5); Hematocrit 38.6 % (42-50); Hemoglobin 12.8 g/dL (12.5-18.0); IMMATURE GRAN # 0.06 x10^3u/L (0.00-0.03); IMMATURE GRAN % 0.6 % (0.00-0.4); Lymphocyte (Absolute #) 0.54 x10^3/uL (1.0-4.6); Lymphocytes % 5.3 % (24.0-44.0); Mean Cell Volume 94.8 fL (78-100); Mean Corpuscular Hemoglobin 31.4 pg (26-32); Mean Corpuscular Hgb Concent. 33.2 g/dL (32-36); Mean Platelet Volume 12.5 fL (7.5-11.0); Monocyte (Absolute #) 0.49 x10^3/uL (0.0-1.3); Monocytes % 4.8 % (0.0-12.0); Neutrophil % 87.6 % (36.0-66.0); Platelet Count 179 x10^3/uL (150-450); Red Blood Count 4.07 x10^6/uL (4.1-5.6); Red Cell Distribution Width 12.6 % (11.5-14.0); White Blood Count 10.2 x10^3/uL (4.0-10.5)
[2022-08-05] MEDS ORDERED: Sodium Chloride 0.9% 1000 ML 1,000 ML ONE (21:03)
[2022-08-05 21:12] LABS: ALBUMIN 4.3 g/dL (3.5-5.0); ALKALINE PHOSPHATASE 162 U/L (38-126); ANION GAP 15.3 MEQ/L (5-15); BLOOD UREA NITROGEN 22 mg/dL (9-20); CHLORIDE 94 mmol/L (98-107); Calcium 9.6 mg/dL (8.4-10.2); Carbon Dioxide 28 mmol/L (22-30); Creatinine 1 1.15 mg/dL (0.66-1.25); EST GLOMERULAR FILTRATION RATE > 60.0 ML/MIN; Glucose 188 mg/dL (74-106); LIPASE 21 U/L (23-300); MAGNESIUM 1.8 mg/dL (1.6-2.3); Potassium 4.2 mmol/L (3.5-5.1); SGOT/AST 42 U/L (17-59); SGPT/ALT 44 U/L (0-50); SODIUM 133 mmol/L (137-145); Total Protein 7.3 g/dL (6.3-8.2)
[2022-08-05 21:25] LABS: CK-Creatinine Phosphokinase 250 U/L (55-170); NT PRO BNPII 588 pg/mL (<300); TROPONIN < 0.012 ng/mL (0.000-0.034)
[2022-08-06 00:21] VITALS: BP 175/102; PULSE 63
[2022-08-06 00:30] VITALS: O2SAT 96
[2022-08-06 00:36] LABS: Bacteria None Seen /HPF (None Seen); Bilirubin Negative (Negative); Blood Negative (Negative); Epithelial Cells None Seen /HPF (None Seen); Glucose, Urine 500 mg/dL (Negative); Hyaline Casts NONE SEEN /LPF (0-2); Ketones Negative (Negative); Leukocyte Esterase Negative (Negative); Nitrite Negative (Negative); Ph 5.5 (4.6-8.0); Protein,Urine Dip Negative (Negative); RBC 0-2 /HPF (0-5); Specific Gravity 1.015 (1.005-1.030); Urobilinogen 0.2 mg/dL (0.2); WBC 0-2 /HPF (0-5)
[2022-08-06 00:37] LABS: ADD URINE CULTURE? ORDERED SEPARATELY (NO); Appearance Clear (Clear)
== END 2022-08-06 01:15 | disposition home or self-care (01) ==
LOC: ED 20:21
DX: R53.1 Weakness (principal); E86.0 Dehydration; R39.11 Hesitancy of micturition; E11.9 Type 2 diabetes mellitus without complications; Z79.4 Long term (current) use of insulin; Z79.899 Other long term (current) drug therapy; Z86.73 Personal history of transient ischemic attack (TIA), and cerebral infarction without residual deficits
CPT/HCPCS: 36000; 36415; 80053; 81001; 82550; 83605; 83690; 83735; 83880; 84484; 85025; 87086; 93005; 96360; 99284

== ENCOUNTER 2022-09-26 16:36 | Emergency (ER) | payer MEDICARE ==
[2022-09-26] MEDS ORDERED: Sodium Chloride 0.9% 1000 ML 1,000 ML IV STA ×2 (16:43→17:50)
[2022-09-26] MEDS ORDERED: Sodium Chloride 0.9% 1000 ML 1,000 ML ONE ×2 (16:58→17:52)
--- NOTE | 2022-09-26 16:58 | XRAY ---
Indication: Lethargy and dizziness. Comparison: July 04, 2022 Portable chest unchanged again demonstrating COPD, a few tiny calcified granulomas, and CABG surgery. Bony thorax intact again with osteopenia, degenerative changes, and old right clavicle fracture. No new/acute findings.
--- NOTE | 2022-09-26 17:06 | ERPHSYRPT ---
- History of Present Illness Source: patient Exam Limitations: other (Poor historian) Patient Subjective Stated Complaint: pt here for weakness for about an hour now, he thinks he is not drinking enough. Triage Nursing Assessment: pt alert, resp easy, skin w/d/p. able to get from wc to bed, no edema noted, abd flat, Physician History: 67 yo WM w multiple medical problems complains of hypotension and lethargy before ER arrival. Pt denies fever/N/V/D/chest pain/abdominal pain/focal weakness/cough/coryza/dyspnea/dysuria/hematuria/headache. Timing/Duration: other (1 hours before arrival) Modifying Factors: Improves With: nothing Associated Symptoms: denies symptoms, weakness Allergies/Adverse Reactions: No Known Drug Allergies Allergy (Verified 09/26/22 16:45) Home Medications: Albuterol Sulfate [Albuterol Sulfate Hfa] 2 puff IH QID 10/24/20 [History] Budesonide [Budesonide Dr] 3 mg PO DAILY 10/24/20 [History] Hydrocodone/Acetaminophen [Hydrocodone-Acetamin 10-325 mg] 10 tab PO BIDPRN PRN 10/24/20 [History] Insulin Detemir [Levemir] 11 units SQ HS 10/24/20 [History] PANTOPRAZOLE 40 mg Tablet [Protonix 40MG Tablet] 40 mg PO DAILY 10/24/20 [History] Dronedarone Hydrochloride 400* [Multaq 400 MG] 200 mg PO BID 09/16/21 [History] Insulin Aspart (Niacinamide) [Fiasp 100 Unit/ml Vial] 16 units SQ LUNCH 09/16/21 [History] Insulin Aspart (Niacinamide) [Fiasp 100 Unit/ml Vial] 18 unit SQ BREAKFAST 09/16/21 [History] Insulin Aspart (Niacinamide) [Fiasp 100 Unit/ml Vial] 21 units SQ EVENING MEAL 09/16/21 [History] Atorvastatin Calcium 20 mg PO QHS 01/01/22 [History] Tamsulosin HCl 0.4 mg [Flomax 0.4 MG] 0.4 mg PO DAILY 01/01/22 [History] Cyanocobalamin (Vitamin B-12) [Vitamin B-12] 1,000 mcg PO DAILY 01/02/22 [History] Dronedarone Hydrochloride 400* [Multaq 400 MG] 1 tab PO BID 02/16/22 [History] Insulin Aspart (Niacinamide) [Fiasp 100 Unit/ml Vial] 02/16/22 [History] Hx Tetanus, Diphtheria Vaccination/Date Given: Yes Hx Influenza Vaccination/Date Given: Yes Hx Pneumococcal Vaccination/Date Given: Yes Immunizations Up to Date: Yes Travel Risk - International Travel Have you traveled outside of the country in past 3 weeks: No - Coronavirus Screening Are you exhibiting any of the following symptoms?: No Close contact with a COVID-19 positive Pt in past 14-21 Days: No - Vaccine Status Have you recieved a Covid-19 vaccination: Yes 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: [employer] - Vaccination Dates Date of 2cond Vaccination (if applicable): 2019 - Review of Systems Constitutional: No Symptoms, Fatigue, Lethargy, Malaise Eyes: No Symptoms Ears, Nose, & Throat: No Symptoms Respiratory: No Symptoms Cardiac: No Symptoms Abdominal/Gastrointestinal: No Symptoms Genitourinary Symptoms: No Symptoms Musculoskeletal: No Symptoms Skin: No Symptoms Neurological: No Symptoms Psychological: No Symptoms Endocrine: No Symptoms Hematologic/Lymphatic: No Symptoms Immunological/Allergic: No Symptoms - Past Medical History Pertinent Past Medical History: Yes Neurological History: Peripheral Neuropathy, Stroke, TIA ENT History: Other Cardiac History: Coronary Artery Disease, Myocardial Infarction ([place]) Respiratory History: No Pertinent History Endocrine Medical History: Diabetes Type II Musculoskeletal History: Arthritis GI Medical History: Crohns Disease History: No Pertinent History Psycho-Social History: No Pertinent History Male Reproductive Disorders: Prostate Problems Other Medical History: CABG X 3 (2008), CROHNS DISEASE, 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 - Past Surgical History Past Surgical History: Yes Neuro Surgical History: No Pertinent History Cardiac: CABG, Cardiac Catheterization, Cardiac Stent, Other Respiratory: No Pertinent History Gastrointestinal: Appendectomy, Other Genitourinary: No Pertinent History Musculoskeletal: Orthopedic Surgery Male Surgical History: No Pertinent History Other Surgical History: 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, intestinal resection, triple bypass - Social History Smoking Status: Former smoker How long have you smoked: years Exposure to second hand smoke: Yes Drug Use: none Patient Lives Alone: No (daughter) Significant Family History: no pertinent family hx - Nursing Vital Signs Nursing Vital Signs: Initial Vital Signs Temperature 98.2 F 09/26/22 16:50 Pulse Rate 72 09/26/22 16:50 Respiratory Rate 16 09/26/22 16:50 Blood Pressure 111/61 09/26/22 16:50 O2 Sat by Pulse Oximetry 98 09/26/22 16:50 Pain Scale Pain Intensity 0 WNL - Physical Exam General Appearance: no apparent distress, cachetic Eye Exam: PERRL/EOMI, eyes nml inspection Ears, Nose, Throat Exam: normal ENT inspection, TMs normal, pharynx normal, moist mucous membranes Neck Exam: normal inspection, non-tender, supple, full range of motion, No meningismus, No mass, No Brudzinski, No Kernig's, No carotid bruit Respiratory Exam: normal breath sounds, lungs clear, airway intact, No respiratory distress Cardiovascular Exam: regular rate/rhythm, normal heart sounds, normal peripheral pulses, murmur, capillary refill <2 sec Gastrointestinal/Abdomen Exam: soft, normal bowel sounds, No tenderness Back Exam: normal inspection, normal range of motion, No CVA tenderness Extremity Exam: normal inspection, normal range of motion Neurologic Exam: alert, oriented x 3, cooperative, conductor freight II-XII nml as tested, sensation nml, No motor deficits, No sensory deficit Lymphatic Exam: No adenopathy SpO2 Interpretation: normal SpO2: 98 O2 Delivery: Room Air - Course Nursing assessment & vital signs reviewed: Yes EKG Interpreted by Me: RATE (NSR/rate 72/Prolonged QTc/RBBB/non-specific ST changes) - Radiology Exams Chest X-ray Interpretation: Reviewed by me, Discussed w/ radiologist (CXR NAD) Ordered Tests: Active Orders 24 hr Category Date Time Status EKG-ER Only STAT Care 09/26/22 16:43 Active IV Insertion STAT Care 09/26/22 16:43 Active cath [Cath for Specimen-Straight] STAT Care 09/26/22 18:23 Active CHEST 1 VIEW (PORTABLE) Stat Exams 09/26/22 16:44 Completed CBC W DIFF Stat Lab 09/26/22 16:55 Completed CMP Stat Lab 09/26/22 16:55 Completed CULTURE,URINE Stat Lab 09/26/22 18:24 Received Lactic Acid Stat Lab 09/26/22 17:00 Completed NT PRO BNPII Stat Lab 09/26/22 16:55 Completed PROTIME WITH INR Stat Lab 09/26/22 16:55 Completed PTT Stat Lab 09/26/22 16:55 Completed TROPONIN Q4H Lab 09/26/22 16:55 Completed TROPONIN Q4H Lab 09/26/22 18:40 Received TROPONIN Q4H Lab 09/27/22 00:45 Ordered UA W/RFX UR CULTURE Stat Lab 09/26/22 18:22 Completed Medication Summary Discontinued Medications Generic Name Dose Route Start Last Admin Trade Name Daphne PRN Reason Stop Dose Admin Sodium Chloride 1,000 mls @ 999 mls/hr 09/26/22 16:43 09/26/22 18:01 Sodium Chloride 0.9% 1000 Ml IV 09/26/22 17:43 Infused .Q1H1M STA Infusion Sodium Chloride Confirm 09/26/22 16:58 Sodium Chloride 0.9% 1000 Ml Administered 09/26/22 16:59 Dose 1,000 mls @ ud .ROUTE .STK-MED ONE Sodium Chloride 1,000 mls @ 999 mls/hr 09/26/22 17:50 09/26/22 17:54 Sodium Chloride 0.9% 1000 Ml IV 09/26/22 18:50 999 mls/hr .Q1H1M STA Administration Sodium Chloride Confirm 09/26/22 17:52 Sodium Chloride 0.9% 1000 Ml Administered 09/26/22 17:53 Dose 1,000 mls @ ud .ROUTE .STK-MED ONE Lab/Rad Data: Laboratory Result Diagrams 09/26/22 16:55 09/26/22 16:55 Laboratory Results 09/26/22 09/26/22 09/26/22 Range/Units 18:22 17:00 17:00 WBC (4.0-10.5) x10^3/uL RBC (4.1-5.6) x10^6/uL Hgb (12.5-18.0) g/dL Hct (42-50) % MCV (78-100) fL MCH (26-32) pg MCHC (32-36) g/dL RDW (11.5-14.0) % Plt Count (150-450) x10^3/uL MPV (7.5-11.0) fL Gran % (36.0-66.0) % Immature Gran % (Auto) (0.00-0.4) % Nucleat RBC Rel Count (0.00-0.1) % Eos # (Auto) (0-0.5) x10^3/uL Immature Gran # (Auto) (0.00-0.03) x10^3u/L Absolute Lymphs (auto) (1.0-4.6) x10^3/uL Absolute Monos (auto) (0.0-1.3) x10^3/uL Absolute Nucleated RBC (0.00-0.01) x10^3u/L Lymphocytes % (24.0-44.0) % Monocytes % (0.0-12.0) % Eosinophils % (0.00-5.0) % Basophils % (0.0-0.4) % Absolute Granulocytes (1.4-6.9) x10^3/uL Basophils # (0-0.4) x10^3/uL PT (9.4-12.5) SECONDS INR (0.8-3.0) APTT (25.1-36.5) SECONDS Sodium (137-145) mmol/L Potassium (3.5-5.1) mmol/L Chloride (98-107) mmol/L Carbon Dioxide (22-30) mmol/L Anion Gap (5-15) MEQ/L BUN (9-20) mg/dL Creatinine (0.66-1.25) mg/dL Estimated GFR ML/MIN Glucose (74-106) mg/dL Lactic Acid 2.0 (0.4-2.0) Calcium (8.4-10.2) mg/dL Total Bilirubin (0.2-1.3) mg/dL AST (17-59) U/L ALT (0-50) U/L Alkaline Phosphatase (38-126) U/L Troponin I (0.000-0.034) ng/mL NT-Pro-B Natriuret Pep (<300) pg/mL Serum Total Protein (6.3-8.2) g/dL Albumin (3.5-5.0) g/dL Urine Color Yellow (Yellow) Urine Appearance Clear (Clear) Urine pH 5.5 (4.6-8.0) Ur Specific [place] 1.010 (1.005-1.030) Urine Protein Negative (Negative) Urine Glucose (UA) Negative (Negative) mg/dL Urine Ketones Negative (Negative) Urine Blood Negative (Negative) Urine Nitrite Negative (Negative) Urine Bilirubin Negative (Negative) Urine Urobilinogen 0.2 (0.2) mg/dL Ur Leukocyte Esterase Negative (Negative) U Hyaline Cast (Auto) NONE SEEN (0-2) /LPF Urine Microscopic RBC 0-2 (0-5) /HPF Urine Microscopic WBC 0-2 (0-5) /HPF Ur Epithelial Cells None Seen (None Seen) /HPF Urine Bacteria None Seen (None Seen) /HPF Urine Culture Reflexed ORDERED SEPARATELY (NO) Influenza Type A Ag NEGATIVE (NEGATIVE) Influenza Type B Ag NEGATIVE (NEGATIVE) RSV (PCR) NEGATIVE (NEGATIVE) SARS-CoV-2 (PCR) NEGATIVE (NEGATIVE) 09/26/22 09/26/22 09/26/22 Range/Units 16:55 16:55 16:55 WBC (4.0-10.5) x10^3/uL RBC (4.1-5.6) x10^6/uL Hgb (12.5-18.0) g/dL Hct (42-50) % MCV (78-100) fL MCH (26-32) pg MCHC (32-36) g/dL RDW (11.5-14.0) % Plt Count (150-450) x10^3/uL MPV (7.5-11.0) fL Gran % (36.0-66.0) % Immature Gran % (Auto) (0.00-0.4) % Nucleat RBC Rel Count (0.00-0.1) % Eos # (Auto) (0-0.5) x10^3/uL Immature Gran # (Auto) (0.00-0.03) x10^3u/L Absolute Lymphs (auto) (1.0-4.6) x10^3/uL Absolute Monos (auto) (0.0-1.3) x10^3/uL Absolute Nucleated RBC (0.00-0.01) x10^3u/L Lymphocytes % (24.0-44.0) % Monocytes % (0.0-12.0) % Eosinophils % (0.00-5.0) % Basophils % (0.0-0.4) % Absolute Granulocytes (1.4-6.9) x10^3/uL Basophils # (0-0.4) x10^3/uL PT 11.4 (9.4-12.5) SECONDS INR 1.05 (0.8-3.0) APTT 27.5 (25.1-36.5) SECONDS Sodium 135 L (137-145) mmol/L Potassium 3.7 (3.5-5.1) mmol/L Chloride 98 (98-107) mmol/L Carbon Dioxide 28 (22-30) mmol/L Anion Gap 12.9 (5-15) MEQ/L BUN 28 H (9-20) mg/dL Creatinine 1.60 H (0.66-1.25) mg/dL Estimated GFR 45.8 ML/MIN Glucose 73 L (74-106) mg/dL Lactic Acid (0.4-2.0) Calcium 8.9 (8.4-10.2) mg/dL Total Bilirubin 0.50 (0.2-1.3) mg/dL AST 29 (17-59) U/L ALT 30 (0-50) U/L Alkaline Phosphatase 118 (38-126) U/L Troponin I < 0.012 (0.000-0.034) ng/mL NT-Pro-B Natriuret Pep 363 (<300) pg/mL Serum Total Protein 7.0 (6.3-8.2) g/dL Albumin 3.9 (3.5-5.0) g/dL Urine Color (Yellow) Urine Appearance (Clear) Urine pH (4.6-8.0) Ur Specific [place] (1.005-1.030) Urine Protein (Negative) Urine Glucose (UA) (Negative) mg/dL Urine Ketones (Negative) Urine Blood (Negative) Urine Nitrite (Negative) Urine Bilirubin (Negative) Urine Urobilinogen (0.2) mg/dL Ur Leukocyte Esterase (Negative) U Hyaline Cast (Auto) (0-2) /LPF Urine Microscopic RBC (0-5) /HPF Urine Microscopic WBC (0-5) /HPF Ur Epithelial Cells (None Seen) /HPF Urine Bacteria (None Seen) /HPF Urine Culture Reflexed (NO) Influenza Type A Ag (NEGATIVE) Influenza Type B Ag (NEGATIVE) RSV (PCR) (NEGATIVE) SARS-CoV-2 (PCR) (NEGATIVE) 09/26/22 Range/Units 16:55 WBC 8.2 (4.0-10.5) x10^3/uL RBC 3.67 L (4.1-5.6) x10^6/uL Hgb 11.2 L (12.5-18.0) g/dL Hct 34.8 L (42-50) % MCV 94.8 (78-100) fL MCH 30.5 (26-32) pg MCHC 32.2 (32-36) g/dL RDW 12.3 (11.5-14.0) % Plt Count 186 (150-450) x10^3/uL MPV 11.6 H (7.5-11.0) fL Gran % 80.1 H (36.0-66.0) % Immature Gran % (Auto) 0.7 H (0.00-0.4) % Nucleat RBC Rel Count 0.0 (0.00-0.1) % Eos # (Auto) 0.15 (0-0.5) x10^3/uL Immature Gran # (Auto) 0.06 H (0.00-0.03) x10^3u/L Absolute Lymphs (auto) 0.78 L (1.0-4.6) x10^3/uL Absolute Monos (auto) 0.59 (0.0-1.3) x10^3/uL Absolute Nucleated RBC 0.00 (0.00-0.01) x10^3u/L Lymphocytes % 9.5 L (24.0-44.0) % Monocytes % 7.2 (0.0-12.0) % Eosinophils % 1.8 (0.00-5.0) % Basophils % 0.7 (0.0-0.4) % Absolute Granulocytes 6.58 (1.4-6.9) x10^3/uL Basophils # 0.06 (0-0.4) x10^3/uL PT (9.4-12.5) SECONDS INR (0.8-3.0) APTT (25.1-36.5) SECONDS Sodium (137-145) mmol/L Potassium (3.5-5.1) mmol/L Chloride (98-107) mmol/L Carbon Dioxide (22-30) mmol/L Anion Gap (5-15) MEQ/L BUN (9-20) mg/dL Creatinine (0.66-1.25) mg/dL Estimated GFR ML/MIN Glucose (74-106) mg/dL Lactic Acid (0.4-2.0) Calcium (8.4-10.2) mg/dL Total Bilirubin (0.2-1.3) mg/dL AST (17-59) U/L ALT (0-50) U/L Alkaline Phosphatase (38-126) U/L Troponin I (0.000-0.034) ng/mL NT-Pro-B Natriuret Pep (<300) pg/mL Serum Total Protein (6.3-8.2) g/dL Albumin (3.5-5.0) g/dL Urine Color (Yellow) Urine Appearance (Clear) Urine pH (4.6-8.0) Ur Specific [place] (1.005-1.030) Urine Protein (Negative) Urine Glucose (UA) (Negative) mg/dL Urine Ketones (Negative) Urine Blood (Negative) Urine Nitrite (Negative) Urine Bilirubin (Negative) Urine Urobilinogen (0.2) mg/dL Ur Leukocyte Esterase (Negative) U Hyaline Cast (Auto) (0-2) /LPF Urine Microscopic RBC (0-5) /HPF Urine Microscopic WBC (0-5) /HPF Ur Epithelial Cells (None Seen) /HPF Urine Bacteria (None Seen) /HPF Urine Culture Reflexed (NO) Influenza Type A Ag (NEGATIVE) Influenza Type B Ag (NEGATIVE) RSV (PCR) (NEGATIVE) SARS-CoV-2 (PCR) (NEGATIVE) - Progress Progress Note: 09/26/22 18:56 Nursing note and vital signs reviewed No food or housing insecurities noted Additional history per daughter All lab results reviewed and share w pt CXR result reviewed and shared w pt Counseled pt/family regarding: lab results, diagnosis, rad results Medical Desision Making - Independent Historian Additional History obtained from: Child - Diagnostic Testing Radiological Interpretation: Reviewed by me, Discussed w/ radiologist - Risk of complications Low Risk: Low risk of morbidity from additional dx testing or treatment - Departure Departure Disposition: Home Clinical Impression: Lethargy, Dehydration, mild Condition: Stable Critical Care Time: No Referrals: JOSE ALBERTO GRAJEDA [Primary Care Provider] - Follow up/PCP as directed Instructions: Dehydration, Adult (DC), Generalized Weakness (DC) Additional Instructions: Follow up with your family MD Return to ER as needed
[2022-09-26 17:17] LABS: Absolute Neutrophil Ct (ANC) 6.58 x10^3/uL (1.4-6.9); BASOPHIL % 0.7 % (0.0-0.4); Basophil (Absolute #) 0.06 x10^3/uL (0-0.4); Eosinophil % 1.8 % (0.00-5.0); Eosinophil (Absolute #) 0.15 x10^3/uL (0-0.5); Hematocrit 34.8 % (42-50); Hemoglobin 11.2 g/dL (12.5-18.0); IMMATURE GRAN # 0.06 x10^3u/L (0.00-0.03); IMMATURE GRAN % 0.7 % (0.00-0.4); Lymphocyte (Absolute #) 0.78 x10^3/uL (1.0-4.6); Lymphocytes % 9.5 % (24.0-44.0); Mean Cell Volume 94.8 fL (78-100); Mean Corpuscular Hemoglobin 30.5 pg (26-32); Mean Corpuscular Hgb Concent. 32.2 g/dL (32-36); Mean Platelet Volume 11.6 fL (7.5-11.0); Monocyte (Absolute #) 0.59 x10^3/uL (0.0-1.3); Monocytes % 7.2 % (0.0-12.0); Neutrophil % 80.1 % (36.0-66.0); Platelet Count 186 x10^3/uL (150-450); Red Blood Count 3.67 x10^6/uL (4.1-5.6); Red Cell Distribution Width 12.3 % (11.5-14.0); White Blood Count 8.2 x10^3/uL (4.0-10.5)
[2022-09-26 17:32] LABS: INR 1.05 (0.8-3.0); PROTIME 11.4 SECONDS (9.4-12.5); PTT 27.5 SECONDS (25.1-36.5)
[2022-09-26 17:41] LABS: ALBUMIN 3.9 g/dL (3.5-5.0); ANION GAP 12.9 MEQ/L (5-15); BILIRUBIN,TOTAL 0.5 mg/dL (0.2-1.3); Calcium 8.9 mg/dL (8.4-10.2); Creatinine 1 1.6 mg/dL (0.66-1.25); EST GLOMERULAR FILTRATION RATE 45.8 ML/MIN; Potassium 3.7 mmol/L (3.5-5.1)
[2022-09-26 17:47] LABS: INFLUENZA A NEGATIVE (NEGATIVE); INFLUENZA B NEGATIVE (NEGATIVE); RESPIRATORY SYNCTIAL VIRUS NEGATIVE (NEGATIVE); SARS-CoV-2 Xpert Express NEGATIVE (NEGATIVE)
[2022-09-26 18:53] LABS: ADD URINE CULTURE? ORDERED SEPARATELY (NO); Appearance Clear (Clear); Bacteria None Seen /HPF (None Seen); Bilirubin Negative (Negative); Blood Negative (Negative); Epithelial Cells None Seen /HPF (None Seen); Glucose, Urine Negative (Negative); Hyaline Casts NONE SEEN /LPF (0-2); Ketones Negative (Negative); Leukocyte Esterase Negative (Negative); Nitrite Negative (Negative); Ph 5.5 (4.6-8.0); Protein,Urine Dip Negative (Negative); RBC 0-2 /HPF (0-5); Urobilinogen 0.2 mg/dL (0.2); WBC 0-2 /HPF (0-5)
[2022-09-26 19:36] VITALS: BP 162/87; PULSE 64; O2SAT 96
== END 2022-09-26 19:38 | disposition home or self-care (01) ==
LOC: ED 16:36
DX: R53.83 Other fatigue (principal); E86.0 Dehydration; E11.42 Type 2 diabetes mellitus with diabetic polyneuropathy; Z79.4 Long term (current) use of insulin; Z79.899 Other long term (current) drug therapy; Z86.73 Personal history of transient ischemic attack (TIA), and cerebral infarction without residual deficits; I25.2 Old myocardial infarction
CPT/HCPCS: 0241U; 36000; 36415; 71045; 80053; 81001; 82947; 83605; 83880; 84484; 85025; 85610; 85730; 87086; 93005; 96360; 96361; 99284; P9612

== ENCOUNTER 2022-10-12 14:56 | Inpatient (IN) | payer MEDICARE ==
--- NOTE | 2022-10-12 15:01 | ERPHSYRPT ---
- History of Present Illness Time Seen by Provider: 10/12/22 15:01 Source: patient, EMS, old records Exam Limitations: no limitations Physician History: This is a 67-year-old white male patient of Dr. Grajeda who has been seen in our emergency department in the past because of low blood pressure, weakness and lethargy issues. Patient was brought to the emergency department by ambulance service today. Independent history and additional information was obtained from the paramedics and the daughter. Patient was seen most recently on 09/26/2022 in our emergency department. Apparently, he was discharged home from [facility] for similar symptoms 2 days ago. Patient has a history of coronary artery disease and has had a CABG in 2008. It was a three-vessel repair. He also has a history of cardiac stents. Patient has a history of a CVA, TIA, peripheral neuropathy, diabetes, arthritis and Crohn's disease. Patient currently denies chest pain. He denies shortness of breath. Within the last few weeks patient fell and did have some fractured ribs present. He does not have cough. He has no significant abdominal pain. He has had no vomiting or diarrhea symptoms. Timing/Duration: today Severity: mild (To moderate) Associated Symptoms: malaise, weakness Allergies/Adverse Reactions: No Known Drug Allergies Allergy (Verified 10/12/22 15:19) Home Medications: Albuterol Sulfate [Albuterol Sulfate Hfa] 2 puff IH QID 10/24/20 [History] Budesonide [Budesonide Dr] 3 mg PO DAILY 10/24/20 [History] Insulin Detemir [Levemir] 9 units SQ HS 10/24/20 [History] PANTOPRAZOLE 40 mg Tablet [Protonix 40MG Tablet] 40 mg PO DAILY 10/24/20 [History] Dronedarone Hydrochloride 400* [Multaq 400 MG] 200 mg PO BID 09/16/21 [Hi story] Insulin Aspart (Niacinamide) [Fiasp 100 Unit/ml Vial] 8 unit SQ BREAKFAST 09/16/21 [History] Insulin Aspart (Niacinamide) [Fiasp 100 Unit/ml Vial] 8 units SQ EVENING MEAL 09/16/21 [History] Insulin Aspart (Niacinamide) [Fiasp 100 Unit/ml Vial] 8 units SQ LUNCH 09/16/21 [History] Atorvastatin Calcium 40 mg PO QHS 01/01/22 [History] Tamsulosin HCl 0.4 mg [Flomax 0.4 MG] 0.4 mg PO DAILY 01/01/22 [History] Cyanocobalamin (Vitamin B-12) [Vitamin B-12] 1,000 mcg PO DAILY 01/02/22 [History] Alpha Lipoic Acid 300 mg PO BID 10/12/22 [History] Apixaban [Eliquis] 1 tab PO BID 10/12/22 [History] Cholecalciferol (Vitamin D3) [Vitamin D3] 1 tab PO WEEKLY 10/12/22 [History] Midodrine HCl [Proamatine] 1 tab PO TID 10/12/22 [History] [place]-3 Fatty Acids [[place]-3] 1 tab PO DAILY 10/12/22 [History] Psyllium Packet [Metamucil PACKET] 1 packet PO DAILY 10/12/22 [History] Hx Tetanus, Diphtheria Vaccination/Date Given: Yes Hx Influenza Vaccination/Date Given: Yes Hx Pneumococcal Vaccination/Date Given: Yes Travel Risk - International Travel Have you traveled outside of the country in past 3 weeks: No - Coronavirus Screening Are you exhibiting any of the following symptoms?: No Close contact with a COVID-19 positive Pt in past 14-21 Days: No - Vaccine Status Have you recieved a Covid-19 vaccination: Yes [employer] - Vaccination Dates Date of 2cond Vaccination (if applicable): 2019 - Review of Systems Constitutional: Weakness Eyes: No Symptoms Ears, Nose, & Throat: No Symptoms Respiratory: No Symptoms Cardiac: No Symptoms Abdominal/Gastrointestinal: No Symptoms Genitourinary Symptoms: No Symptoms Musculoskeletal: No Symptoms Skin: No Symptoms Neurological: No Symptoms Psychological: No Symptoms Endocrine: No Symptoms Hematologic/Lymphatic: No Symptoms Immunological/Allergic: No Symptoms All Other Systems: Reviewed and Negative - Past Medical History Pertinent Past Medical History: Yes Neurological History: Peripheral Neuropathy, Stroke, TIA ENT History: Other Cardiac History: Coronary Artery Disease, Myocardial Infarction ([place]) Respiratory History: No Pertinent History Endocrine Medical History: Diabetes Type II Musculoskeletal History: Arthritis GI Medical History: Crohns Disease History: No Pertinent History Psycho-Social History: No Pertinent History Male Reproductive Disorders: Prostate Problems Other Medical History: CABG X 3 (2008), CROHNS DISEASE, 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 - Past Surgical History Past Surgical History: Yes Neuro Surgical History: No Pertinent History Cardiac: CABG, Cardiac Catheterization, Cardiac Stent, Other Respiratory: No Pertinent History Gastrointestinal: Appendectomy, Other Genitourinary: No Pertinent History Musculoskeletal: Orthopedic Surgery Male Surgical History: No Pertinent History Other Surgical History: 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, intestinal resection, triple bypass - Social History Smoking Status: Former smoker How long have you smoked: years Exposure to second hand smoke: Yes Drug Use: none Patient Lives Alone: No (daughter) Significant Family History: no pertinent family hx - Nursing Vital Signs Nursing Vital Signs: Initial Vital Signs Temperature 98.1 F 10/12/22 15:20 Pulse Rate 74 10/12/22 15:20 Respiratory Rate 18 10/12/22 15:20 Blood Pressure 118/58 10/12/22 15:20 O2 Sat by Pulse Oximetry 95 10/12/22 15:20 Pain Scale Pain Intensity 0 - Physical Exam General Appearance: no apparent distress, alert, thin Eye Exam: PERRL/EOMI, eyes nml inspection Ears, Nose, Throat Exam: normal ENT inspection, dry mucous membranes Neck Exam: normal inspection, non-tender, supple, full range of motion Respiratory Exam: normal breath sounds, lungs clear, airway intact, No chest tenderness, No respiratory distress Cardiovascular Exam: regular rate/rhythm, normal heart sounds, normal peripheral pulses Gastrointestinal/Abdomen Exam: soft, normal bowel sounds, No tenderness Rectal Exam: not done Back Exam: normal inspection, normal range of motion, No CVA tenderness, No vertebral tenderness Extremity Exam: normal inspection, normal range of motion, pelvis stable Neurologic Exam: alert, oriented x 3, cooperative, 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 There is no evidence of any acute ischemic changes on today's twelve-lead EKG. There is no change on today's twelve-lead EKG when compared to the twelve-lead EKG that was performed here in this emergency department on 09/26/2022.) Ordered Tests: Active Orders 24 hr Category Date Time Status EKG-ER Only STAT Care 10/12/22 15:16 Active IV Insertion STAT Care 10/12/22 15:16 Active ABDOMEN AND PELVIS W/0 CONTRAS [CT] Stat Exams 10/12/22 18:01 Completed CHEST 1 VIEW (PORTABLE) Stat Exams 10/12/22 16:33 Completed HEAD WITHOUT CONTRAST [CT] Stat Exams 10/12/22 18:05 Completed CBC W DIFF Stat Lab 10/12/22 15:20 Completed CMP Stat Lab 10/12/22 15:20 Completed Lactic Acid Stat Lab 10/12/22 15:16 Completed Lactic Acid Stat Lab 10/12/22 17:42 Received MONO SCREEN Stat Lab 10/12/22 15:20 Completed TROPONIN Q4H Lab 10/12/22 15:20 Completed TROPONIN Q4H Lab 10/12/22 19:30 Ordered TROPONIN Q4H Lab 10/12/22 23:30 Ordered UA W/RFX UR CULTURE Stat Lab 10/12/22 15:45 Completed Transfer Order Routine Transfer 10/12/22 Ordered Medication Summary Discontinued Medications Generic Name Dose Route Start Last Admin Trade Name Freq PRN Reason Stop Dose Admin Sodium Chloride 1,000 mls @ 999 mls/hr 10/12/22 15:16 10/12/22 16:52 Sodium Chloride 0.9% 1000 Ml IV 10/12/22 16:16 Infused .Q1H1M STA Infusion Sodium Chloride Confirm 10/12/22 15:48 Sodium Chloride 0.9% 1000 Ml Administered 10/12/22 15:49 Dose 1,000 mls @ ud .ROUTE .STK-MED ONE Sodium Chloride 1,000 mls @ 999 mls/hr 10/12/22 16:31 10/12/22 18:05 Sodium Chloride 0.9% 1000 Ml IV 10/12/22 17:31 Infused .Q1H1M STA Infusion Sodium Chloride Confirm 10/12/22 16:53 Sodium Chloride 0.9% 1000 Ml Administered 10/12/22 16:54 Dose 1,000 mls @ ud .ROUTE .STK-MED ONE Levofloxacin/Dextrose 500 mg in 100 mls @ 100 mls/hr 10/12/22 17:39 10/12/22 18:58 Levofloxacin 500mg/100ml D5w IV 10/12/22 18:38 Infused STAT STA Infusion Levofloxacin/Dextrose Confirm 10/12/22 17:47 Levofloxacin 500mg/100ml D5w Administered 10/12/22 17:48 Dose 500 mg in 100 mls @ ud IV .[facility] Lab/Rad Data: Laboratory Result Diagrams 10/12/22 15:20 10/12/22 15:20 Laboratory Results 10/12/22 10/12/22 10/12/22 Range/Units 15:45 15:20 15:20 WBC (4.0-10.5) x10^3/uL RBC (4.1-5.6) x10^6/uL Hgb (12.5-18.0) g/dL Hct (42-50) % MCV (78-100) fL MCH (26-32) pg MCHC (32-36) g/dL RDW (11.5-14.0) % Plt Count (150-450) x10^3/uL MPV (7.5-11.0) fL Gran % (36.0-66.0) % Immature Gran % (Auto) (0.00-0.4) % Nucleat RBC Rel Count (0.00-0.1) % Eos # (Auto) (0-0.5) x10^3/uL Immature Gran # (Auto) (0.00-0.03) x10^3u/L Absolute Lymphs (auto) (1.0-4.6) x10^3/uL Absolute Monos (auto) (0.0-1.3) x10^3/uL Absolute Nucleated RBC (0.00-0.01) x10^3u/L Lymphocytes % (24.0-44.0) % Monocytes % (0.0-12.0) % Eosinophils % (0.00-5.0) % Basophils % (0.0-0.4) % Absolute Granulocytes (1.4-6.9) x10^3/uL Basophils # (0-0.4) x10^3/uL Sodium (137-145) mmol/L Potassium (3.5-5.1) mmol/L Chloride (98-107) mmol/L Carbon Dioxide (22-30) mmol/L Anion Gap (5-15) MEQ/L BUN (9-20) mg/dL Creatinine (0.66-1.25) mg/dL Estimated GFR ML/MIN Glucose (74-106) mg/dL Lactic Acid (0.4-2.0) Calcium (8.4-10.2) mg/dL Total Bilirubin (0.2-1.3) mg/dL AST (17-59) U/L ALT (0-50) U/L Alkaline Phosphatase (38-126) U/L Troponin I (0.000-0.034) ng/mL Serum Total Protein (6.3-8.2) g/dL Albumin (3.5-5.0) g/dL Urine Color Dark Yellow (Yellow) Urine Appearance Clear (Clear) Urine pH 6.5 (4.6-8.0) Ur Specific [place] 1.010 (1.005-1.030) Urine Protein Negative (Negative) Urine Glucose (UA) Negative (Negative) mg/dL Urine Ketones Negative (Negative) Urine Blood Negative (Negative) Urine Nitrite Negative (Negative) Urine Bilirubin Negative (Negative) Urine Urobilinogen 1.0 A (0.2) mg/dL Ur Leukocyte Esterase Negative (Negative) U Hyaline Cast (Auto) None Seen (0-2) /LPF Urine Microscopic RBC 0-2 (0-5) /HPF Urine Microscopic WBC 0-2 (0-5) /HPF Ur Epithelial Cells Rare (None Seen) /HPF Urine Bacteria Rare A (None Seen) /HPF Urine Culture Reflexed NO (NO) Monoscreen NEGATIVE (NEGATIVE) Influenza Type A Ag NEGATIVE (NEGATIVE) Influenza Type B Ag NEGATIVE (NEGATIVE) RSV (PCR) NEGATIVE (NEGATIVE) SARS-CoV-2 (PCR) NEGATIVE (NEGATIVE) Slides for Path Review 10/12/22 10/12/22 10/12/22 Range/Units 15:20 15:20 15:20 WBC 9.7 (4.0-10.5) x10^3/uL RBC 3.39 L (4.1-5.6) x10^6/uL Hgb 10.2 L (12.5-18.0) g/dL Hct 31.6 L (42-50) % MCV 93.2 (78-100) fL MCH 30.1 (26-32) pg MCHC 32.3 (32-36) g/dL RDW 13.3 (11.5-14.0) % Plt Count 333 (150-450) x10^3/uL MPV 10.3 (7.5-11.0) fL Gran % 88.6 H (36.0-66.0) % Immature Gran % (Auto) 2.4 H (0.00-0.4) % Nucleat RBC Rel Count 0.0 (0.00-0.1) % Eos # (Auto) 0.07 (0-0.5) x10^3/uL Immature Gran # (Auto) 0.23 H (0.00-0.03) x10^3u/L Absolute Lymphs (auto) 0.37 L (1.0-4.6) x10^3/uL Absolute Monos (auto) 0.40 (0.0-1.3) x10^3/uL Absolute Nucleated RBC 0.00 (0.00-0.01) x10^3u/L Lymphocytes % 3.8 L (24.0-44.0) % Monocytes % 4.1 (0.0-12.0) % Eosinophils % 0.7 (0.00-5.0) % Basophils % 0.4 (0.0-0.4) % Absolute Granulocytes 8.59 H (1.4-6.9) x10^3/uL Basophils # 0.04 (0-0.4) x10^3/uL Sodium 132 L (137-145) mmol/L Potassium 3.9 (3.5-5.1) mmol/L Chloride 98 (98-107) mmol/L Carbon Dioxide 28 (22-30) mmol/L Anion Gap 10.6 (5-15) MEQ/L BUN 15 (9-20) mg/dL Creatinine 0.70 (0.66-1.25) mg/dL Estimated GFR > 60.0 ML/MIN Glucose 124 H (74-106) mg/dL Lactic Acid (0.4-2.0) Calcium 8.5 (8.4-10.2) mg/dL Total Bilirubin 1.70 H (0.2-1.3) mg/dL AST 239 H (17-59) U/L ALT 263 H (0-50) U/L Alkaline Phosphatase 978 H (38-126) U/L Troponin I < 0.012 (0.000-0.034) ng/mL Serum Total Protein 6.3 (6.3-8.2) g/dL Albumin 3.0 L (3.5-5.0) g/dL Urine Color (Yellow) Urine Appearance (Clear) Urine pH (4.6-8.0) Ur Specific [place] (1.005-1.030) Urine Protein (Negative) Urine Glucose (UA) (Negative) mg/dL Urine Ketones (Negative) Urine Blood (Negative) Urine Nitrite (Negative) Urine Bilirubin (Negative) Urine Urobilinogen (0.2) mg/dL Ur Leukocyte Esterase (Negative) U Hyaline Cast (Auto) (0-2) /LPF Urine Microscopic RBC (0-5) /HPF Urine Microscopic WBC (0-5) /HPF Ur Epithelial Cells (None Seen) /HPF Urine Bacteria (None Seen) /HPF Urine Culture Reflexed (NO) Monoscreen (NEGATIVE) Influenza Type A Ag (NEGATIVE) Influenza Type B Ag (NEGATIVE) RSV (PCR) (NEGATIVE) SARS-CoV-2 (PCR) (NEGATIVE) Slides for Path Review YES 10/12/22 Range/Units 15:16 WBC (4.0-10.5) x10^3/uL RBC (4.1-5.6) x10^6/uL Hgb (12.5-18.0) g/dL Hct (42-50) % MCV (78-100) fL MCH (26-32) pg MCHC (32-36) g/dL RDW (11.5-14.0) % Plt Count (150-450) x10^3/uL MPV (7.5-11.0) fL Gran % (36.0-66.0) % Immature Gran % (Auto) (0.00-0.4) % Nucleat RBC Rel Count (0.00-0.1) % Eos # (Auto) (0-0.5) x10^3/uL Immature Gran # (Auto) (0.00-0.03) x10^3u/L Absolute Lymphs (auto) (1.0-4.6) x10^3/uL Absolute Monos (auto) (0.0-1.3) x10^3/uL Absolute Nucleated RBC (0.00-0.01) x10^3u/L Lymphocytes % (24.0-44.0) % Monocytes % (0.0-12.0) % Eosinophils % (0.00-5.0) % Basophils % (0.0-0.4) % Absolute Granulocytes (1.4-6.9) x10^3/uL Basophils # (0-0.4) x10^3/uL Sodium (137-145) mmol/L Potassium (3.5-5.1) mmol/L Chloride (98-107) mmol/L Carbon Dioxide (22-30) mmol/L Anion Gap (5-15) MEQ/L BUN (9-20) mg/dL Creatinine (0.66-1.25) mg/dL Estimated GFR ML/MIN Glucose (74-106) mg/dL Lactic Acid 2.3 H (0.4-2.0) Calcium (8.4-10.2) mg/dL Total Bilirubin (0.2-1.3) mg/dL AST (17-59) U/L ALT (0-50) U/L Alkaline Phosphatase (38-126) U/L Troponin I (0.000-0.034) ng/mL Serum Total Protein (6.3-8.2) g/dL Albumin (3.5-5.0) g/dL Urine Color (Yellow) Urine Appearance (Clear) Urine pH (4.6-8.0) Ur Specific [place] (1.005-1.030) Urine Protein (Negative) Urine Glucose (UA) (Negative) mg/dL Urine Ketones (Negative) Urine Blood (Negative) Urine Nitrite (Negative) Urine Bilirubin (Negative) Urine Urobilinogen (0.2) mg/dL Ur Leukocyte Esterase (Negative) U Hyaline Cast (Auto) (0-2) /LPF Urine Microscopic RBC (0-5) /HPF Urine Microscopic WBC (0-5) /HPF Ur Epithelial Cells (None Seen) /HPF Urine Bacteria (None Seen) /HPF Urine Culture Reflexed (NO) Monoscreen (NEGATIVE) Influenza Type A Ag (NEGATIVE) Influenza Type B Ag (NEGATIVE) RSV (PCR) (NEGATIVE) SARS-CoV-2 (PCR) (NEGATIVE) Slides for Path Review - Progress Progress: improved, re-examined Progress Note: 10/12/22 18:02 This patient's medical issue is 1 of high complexity. The level of complexity and the work-up performed is based on review of the patient's past medical history, review of the patient's medication list, review of the patient's drug allergy list, history of present illness and physical findings on examination. The work-up includes chest x-ray, CBC, twelve-lead EKG, troponin, lactic acid, CMP. Patient has bilateral pneumonia's and a review of the remainder of the work-up shows increased liver enzymes which is new for him. I did speak with Dr. Phan, the telehospitalist and I reviewed the above patient history and work-up results. We discussed performing a CAT scan of the abdomen pelvis and I will order this before patient is admitted into the hospital. Patient was given a dose of Levaquin intravenous antibiotic. The nurse just informed me, after I spoke with the telehospitalist, that the daughter feels that maybe the patient has facial drooping and I will add a CT scan of the head as well. 10/12/22 19:12 CAT scan of the head without contrast was interpreted by the radiologist and the impression was reviewed by me. Is a nonacute senile brain with multifocal remote lacunar infarcts. There is incidental paranasal sinus disease. CAT scan of the abdomen pelvis shows new mildly distended gallbladder with pericholecystic fluid. There is no evidence of gallstones and no evidence of ductal or biliary dilation or distention 10/12/22 19:[address] Alvarez who is now the telehospitalist and reported the findings of the CT scan of the head without contrast and the CT scan of the abdomen. I reviewed the patient's work-up. Dr. Phan also spoke with Dr. Alvarez about this patient. Dr. Alvarez states that as long as we obtain a general surgical consultation for this patient he is okay to admit the patient here. We have put a call into general surgeon on-call. Dr. Alvarez also wants to place the patient on Zosyn and azithromycin while in the hospital. 10/12/22 19:48 10/12/22 19:[address] Dashawn Rodriguez, the general surgeon on-call. I reviewed the patient history and the laboratory results including his old laboratory results and the findings on the CT scan. He stated that he would be available for consultation. We will admit this patient in the hospital and obtain a consultation. Discussed with Dr.: Other (Dashawn Rodriguez) Counseled pt/family regarding: lab results, diagnosis, rad results Medical Desision Making - Discussion of managment Care discussed with:: specialist (Originally was discussed with Dr. Phan. He wanted the CAT scan of the abdomen pelvis performed before excepting for admission. I placed a call into Dr. Dean spoke with him we will place the patient inpatient as long as we have a general surgery consultation) Reviewed:: Test results, Need for additional workup Agreed on:: Treatment plan, decision to admit Will see patient: in hospital - Diagnostic Testing Diagnostic test were ordered, analyzed, and reviewed by me: Yes Radiological Interpretation: Reviewed by me, Teleradiologist Report - Risk of complications The pt has a high risk of morbidity or mortality based on: Decision regarding hospitilization or escalation of hosp level of care - Departure Departure Disposition: In-patient Admission Clinical Impression: Elevated liver enzymes, Cholecystitis, Bilateral pneumonia Condition: Fair Critical Care Time: No Referrals: JOSE ALBERTO GRAJEDA [Primary Care Provider] - Follow up/PCP as directed
[2022-10-12] MEDS ORDERED: Sodium Chloride 0.9% 1000 ML 1,000 ML IV STA ×2 (15:16→16:31)
[2022-10-12] MEDS ORDERED: Sodium Chloride 0.9% 1000 ML 1,000 ML ONE ×2 (15:48→16:53)
[2022-10-12 16:01] LABS: Absolute Neutrophil Ct (ANC) 8.59 x10^3/uL (1.4-6.9); BASOPHIL % 0.4 % (0.0-0.4); Basophil (Absolute #) 0.04 x10^3/uL (0-0.4); Eosinophil % 0.7 % (0.00-5.0); Eosinophil (Absolute #) 0.07 x10^3/uL (0-0.5); Hematocrit 31.6 % (42-50); Hemoglobin 10.2 g/dL (12.5-18.0); IMMATURE GRAN # 0.23 x10^3u/L (0.00-0.03); IMMATURE GRAN % 2.4 % (0.00-0.4); Lymphocyte (Absolute #) 0.37 x10^3/uL (1.0-4.6); Lymphocytes % 3.8 % (24.0-44.0); Mean Cell Volume 93.2 fL (78-100); Mean Corpuscular Hemoglobin 30.1 pg (26-32); Mean Corpuscular Hgb Concent. 32.3 g/dL (32-36); Mean Platelet Volume 10.3 fL (7.5-11.0); Monocytes % 4.1 % (0.0-12.0); Neutrophil % 88.6 % (36.0-66.0); Platelet Count 333 x10^3/uL (150-450); Red Blood Count 3.39 x10^6/uL (4.1-5.6); Red Cell Distribution Width 13.3 % (11.5-14.0); White Blood Count 9.7 x10^3/uL (4.0-10.5)
[2022-10-12 16:28] LABS: ALKALINE PHOSPHATASE 978 U/L (38-126); ANION GAP 10.6 MEQ/L (5-15); BLOOD UREA NITROGEN 15 mg/dL (9-20); CHLORIDE 98 mmol/L (98-107); Calcium 8.5 mg/dL (8.4-10.2); Carbon Dioxide 28 mmol/L (22-30); EST GLOMERULAR FILTRATION RATE > 60.0 ML/MIN; Glucose 124 mg/dL (74-106); Potassium 3.9 mmol/L (3.5-5.1); SGOT/AST 239 U/L (17-59); SGPT/ALT 263 U/L (0-50); SODIUM 132 mmol/L (137-145); Total Protein 6.3 g/dL (6.3-8.2)
[2022-10-12 16:35] LABS: ADD URINE CULTURE? NO (NO); Appearance Clear (Clear); Bacteria Rare /HPF (None Seen); Bilirubin Negative (Negative); Blood Negative (Negative); Epithelial Cells Rare /HPF (None Seen); Glucose, Urine Negative (Negative); Hyaline Casts None Seen /LPF (0-2); Ketones Negative (Negative); Leukocyte Esterase Negative (Negative); Nitrite Negative (Negative); Ph 6.5 (4.6-8.0); Protein,Urine Dip Negative (Negative); RBC 0-2 /HPF (0-5); WBC 0-2 /HPF (0-5)
[2022-10-12 16:45] LABS: INFLUENZA A NEGATIVE (NEGATIVE); INFLUENZA B NEGATIVE (NEGATIVE); RESPIRATORY SYNCTIAL VIRUS NEGATIVE (NEGATIVE); SARS-CoV-2 Xpert Express NEGATIVE (NEGATIVE)
--- NOTE | 2022-10-12 16:51 | XRAY ---
Indication: Chest wall pain. Comparison: September 26, 2022 Portable chest demonstrates new bilateral infrahilar interstitial alveolar opacities without consolidation/effusion. Stable COPD and a few tiny calcified granulomas. Heart not enlarged again with CABG.
[2022-10-12 17:07] LABS: Slide Review 1 YES
[2022-10-12] MEDS ORDERED: Levofloxacin 500MG/100ML D5W 500 MG/100 ML BAG IV STA (17:39)
[2022-10-12] MEDS ORDERED: Levofloxacin 500MG/100ML D5W 500 MG/100 ML BAG IV ONE (17:47)
--- NOTE | 2022-10-12 18:41 | XRAY ---
Indication: Facial drooping. Multiple contiguous axial images obtained through the head without contrast. Comparison: January 01, 2022 Again age-appropriate global atrophy, moderate periventricular degenerative micro-ischemia, and remote lacunar infarcts left thalamus/right basal ganglia/right mid mares radiata. No acute intracranial hemorrhage, abnormal extra-axial fluid collection, or mass effect. Fourth ventricle is midline without hydrocephalus. Bony calvarium intact. Again mild mucosal thickening left maxillary and lesser degree both ethmoid sinuses without fluid leveling. Mastoid air cells are clear. Impression: Continued nonacute senile brain with multifocal remote lacunar infarcts. Again incidental paranasal sinus disease.
--- NOTE | 2022-10-12 18:47 | XRAY ---
Indication: Abdomen pain. Elevated liver enzymes. Multiple contiguous axial images obtained through the abdomen and pelvis without contrast. Comparison: January 01, 2022 Study is slightly degraded by respiration artifact throughout. Lung bases again demonstrates pulmonary emphysema and small left base calcified granuloma. New moderate bilateral lower lobe consolidating airspace disease posteriorly without effusion. Heart not enlarged. Noncontrasted stomach and bowel loops nonobstructed. Again appendectomy. Mild distended gallbladder with tiny pericholecystic fluid. No obvious gallstones or biliary distention. There remains a few nonobstructing bilateral renal punctate calculi. Again moderately distended urinary bladder concerning for outlet obstruction versus neurogenic bladder. No free air. Remaining liver, gallbladder, pancreas, spleen, adrenal glands, kidneys, ureters, and bladder are unremarkable for noncontrast exam. Again heavy scattered arteriosclerotic calcifications without AAA. Osseous structures intact again with osteopenia, mild/moderate multilevel degenerative changes throughout spine, and remote T11/L1 endplate fractures. New remote-appearing T12 superior endplate fracture with approximately 25% height loss. Impression: 1. Respiration artifact. 2. New bilateral lower lobe consolidating airspace disease. Rule out aspiration pneumonia. 3. New mildly distended gallbladder with pericholecystic fluid better evaluated with sonogram if clinically warranted. 4. Again distended urinary bladder. Rule out outlet obstruction versus neurogenic bladder. 5. Again chronic findings including pulmonary emphysema, nonobstructing bilateral renal micro-calculi, arteriosclerotic disease, and chronic bony findings.
[2022-10-12] MEDS ORDERED: Zofran 4 MG/2 ML VIAL IV PRN (20:14)
[2022-10-12] MEDS ORDERED: HUMULIN R SQ PRN (20:14)
[2022-10-12] MEDS ORDERED: ZOCOR 20MG ONE (21:14)
[2022-10-12] MEDS ORDERED: LIPITOR 40MG PO SCH (22:00)
[2022-10-12] MEDS ORDERED: VENTOLIN COMMON CANISTER IH PRN (23:00)
--- NOTE | 2022-10-12 23:09 | PCM.HP ---
History of Present Illness - Chief Complaint Date: 10/12/22 History of Present Illness: Mr. Kruger is a 67 year-old male with DM2, HTN, HLD, CAD s/p CABG, prior CVA, Crohn's Disease, and on eliquis for unclear reasons who presents with weakness and lethargy. He was recently discharged from an OSH after an admission for a fall with subsequent broken ribs. Upon arrival to [facility], laboratory data revealed hyponatremia, anemia, and elevated LFTs, while imaging revealed airspace disease in the lungs and possible cholecystitis on the abdominal images. On my examination, he is resting comfortably complaining of chest pain from his broken ribs. He is a poor historian, thus a proper ROS is unattainable. - Review of Systems Constitutional: Other (UNABLE TO OBTAIN) Medications & Allergies Home Medications: Home Medication List Albuterol Sulfate [Albuterol Sulfate Hfa] 2 puff IH QID 10/24/20 [History Confirmed 10/12/22] Budesonide [Budesonide Dr] 3 mg PO DAILY 10/24/20 [History Confirmed 10/12/22] Insulin Detemir [Levemir] 9 units SQ HS 10/24/20 [History Confirmed 10/12/22] PANTOPRAZOLE 40 mg Tablet [Protonix 40MG Tablet] 40 mg PO DAILY 10/24/20 [History Confirmed 10/12/22] Dronedarone Hydrochloride 400* [Multaq 400 MG] 200 mg PO BID 09/16/21 [History Confirmed 02/16/22] Insulin Aspart (Niacinamide) [Fiasp 100 Unit/ml Vial] 8 unit SQ BREAKFAST 09/16/21 [History Confirmed 10/12/22] Insulin Aspart (Niacinamide) [Fiasp 100 Unit/ml Vial] 8 units SQ EVENING MEAL 09/16/21 [History Confirmed 10/12/22] Insulin Aspart (Niacinamide) [Fiasp 100 Unit/ml Vial] 8 units SQ LUNCH 09/16/21 [History Confirmed 10/12/22] Atorvastatin Calcium 40 mg PO QHS 01/01/22 [History Confirmed 10/12/22] Tamsulosin HCl 0.4 mg [Flomax 0.4 MG] 0.4 mg PO DAILY 01/01/22 [History Confirmed 10/12/22] Cyanocobalamin (Vitamin B-12) [Vitamin B-12] 1,000 mcg PO DAILY 01/02/22 [History Confirmed 10/12/22] Alpha Lipoic Acid 300 mg PO BID 10/12/22 [History Confirmed 10/12/22] Apixaban [Eliquis] 1 tab PO BID 10/12/22 [History Confirmed 10/12/22] Cholecalciferol (Vitamin D3) [Vitamin D3] 1 tab PO WEEKLY 10/12/22 [History Confirmed 10/12/22] Midodrine HCl [Proamatine] 1 tab PO TID 10/12/22 [History Confirmed 10/12/22] [place]-3 Fatty Acids [Greenwich-3] 1 tab PO DAILY 10/12/22 [History Confirmed 10/12/22] Psyllium Packet [Metamucil PACKET] 1 packet PO DAILY 10/12/22 [History Confirmed 10/12/22] Allergies/Adverse Reactions: Allergies Allergy/AdvReac Type Severity Reaction Status Date / Time No Known Drug Allergies Allergy Verified 10/12/22 15:19 - Past Medical History Past Medical History: Yes Neurological History: Peripheral Neuropathy, Stroke, TIA ENT History: Other Cardiac History: Coronary Artery Disease, Myocardial Infarction ([place]) Respiratory History: No Pertinent History Endocrine Medical History: Diabetes Type II Musculoskelatal History: Arthritis GI Medical History: Crohns Disease History: No Pertinent History Pyscho-Social History: No Pertinent History Male Reproductive Disorders: Prostate Problems Comment: CABG X 3 (2008), CROHNS DISEASE, 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 - Past Surgical History Past Surgical History: Yes Neuro Surgical History: No Pertinent History Cardiac History: CABG, Cardiac Catheterization, Cardiac Stent, Other Respiratory Surgery: No Pertinent History GI Surgical History: Appendectomy, Other Genitourinary Surgical Hx: No Pertinent History Musculskeletal Surgical Hx: Orthopedic Surgery Male Surgical History: No Pertinent History Other Surgical History: 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, intestinal resection, triple bypass - Social History Smoking Status: Former smoker How long have you smoked: years Exposure to second hand smoke: Yes Alcohol: Rarely Drug Use: none Significant Family History: no pertinent family hx - Physical Exam Vital Signs: Vital Signs - 24 hr Temp Pulse Resp BP BP Pulse Ox 10/12/22 21:10 61 18 97 10/12/22 20:14 97 10/12/22 20:00 59 L 20 154/68 97 10/12/22 18:15 149/67 10/12/22 18:01 66 19 131/56 96 10/12/22 17:45 72 18 137/68 97 10/12/22 17:30 68 17 138/75 97 10/12/22 17:15 70 19 139/74 98 10/12/22 17:00 72 20 138/65 97 10/12/22 16:45 72 20 144/71 97 10/12/22 16:30 73 22 133/63 98 10/12/22 16:15 70 18 141/66 97 10/12/22 16:10 73 21 138/62 97 10/12/22 16:07 73 22 116/62 98 10/12/22 16:00 73 21 116/62 98 10/12/22 15:20 98.1 F 74 18 118/58 95 General Appearance: no apparent distress Neurologic Exam: alert, abnormal metal inspector II-XII Ears, Nose, Throat Exam: normal ENT inspection Neck Exam: normal inspection Respiratory Exam: normal breath sounds Cardiovascular Exam: normal heart sounds Gastrointestinal/Abdomen Exam: soft, normal bowel sounds Back Exam: normal inspection Extremity Exam: normal inspection Skin Exam: normal color Results - Labs Lab/Micro Results: Lab Results-Last 24 Hours 10/12/22 10/12/22 10/12/22 Range/Units 15:16 15:20 15:20 WBC 9.7 (4.0-10.5) x10^3/uL RBC 3.39 L (4.1-5.6) x10^6/uL Hgb 10.2 L (12.5-18.0) g/dL Hct 31.6 L (42-50) % MCV 93.2 (78-100) fL MCH 30.1 (26-32) pg MCHC 32.3 (32-36) g/dL RDW 13.3 (11.5-14.0) % Plt Count 333 (150-450) x10^3/uL MPV 10.3 (7.5-11.0) fL Gran % 88.6 H (36.0-66.0) % Immature Gran % (Auto) 2.4 H (0.00-0.4) % Nucleat RBC Rel Count 0.0 (0.00-0.1) % Eos # (Auto) 0.07 (0-0.5) x10^3/uL Immature Gran # (Auto) 0.23 H (0.00-0.03) x10^3u/L Absolute Lymphs (auto) 0.37 L (1.0-4.6) x10^3/uL Absolute Monos (auto) 0.40 (0.0-1.3) x10^3/uL Absolute Nucleated RBC 0.00 (0.00-0.01) x10^3u/L Lymphocytes % 3.8 L (24.0-44.0) % Monocytes % 4.1 (0.0-12.0) % Eosinophils % 0.7 (0.00-5.0) % Basophils % 0.4 (0.0-0.4) % Absolute Granulocytes 8.59 H (1.4-6.9) x10^3/uL Basophils # 0.04 (0-0.4) x10^3/uL Sodium 132 L (137-145) mmol/L Potassium 3.9 (3.5-5.1) mmol/L Chloride 98 (98-107) mmol/L Carbon Dioxide 28 (22-30) mmol/L Anion Gap 10.6 (5-15) MEQ/L BUN 15 (9-20) mg/dL Creatinine 0.70 (0.66-1.25) mg/dL Estimated GFR > 60.0 ML/MIN Glucose 124 H (74-106) mg/dL POC Glucometer (74 to 106) mg/dL Lactic Acid 2.3 H (0.4-2.0) Calcium 8.5 (8.4-10.2) mg/dL Total Bilirubin 1.70 H (0.2-1.3) mg/dL AST 239 H (17-59) U/L ALT 263 H (0-50) U/L Alkaline Phosphatase 978 H (38-126) U/L Troponin I (0.000-0.034) ng/mL Serum Total Protein 6.3 (6.3-8.2) g/dL Albumin 3.0 L (3.5-5.0) g/dL Urine Color (Yellow) Urine Appearance (Clear) Urine pH (4.6-8.0) Ur Specific [place] (1.005-1.030) Urine Protein (Negative) Urine Glucose (UA) (Negative) mg/dL Urine Ketones (Negative) Urine Blood (Negative) Urine Nitrite (Negative) Urine Bilirubin (Negative) Urine Urobilinogen (0.2) mg/dL Ur Leukocyte Esterase (Negative) U Hyaline Cast (Auto) (0-2) /LPF Urine Microscopic RBC (0-5) /HPF Urine Microscopic WBC (0-5) /HPF Ur Epithelial Cells (None Seen) /HPF Urine Bacteria (None Seen) /HPF Urine Culture Reflexed (NO) Monoscreen (NEGATIVE) Influenza Type A Ag (NEGATIVE) Influenza Type B Ag (NEGATIVE) RSV (PCR) (NEGATIVE) SARS-CoV-2 (PCR) (NEGATIVE) Slides for Path Review YES 10/12/22 10/12/22 10/12/22 Range/Units 15:20 15:20 15:20 WBC (4.0-10.5) x10^3/uL RBC (4.1-5.6) x10^6/uL Hgb (12.5-18.0) g/dL Hct (42-50) % MCV (78-100) fL MCH (26-32) pg MCHC (32-36) g/dL RDW (11.5-14.0) % Plt Count (150-450) x10^3/uL MPV (7.5-11.0) fL Gran % (36.0-66.0) % Immature Gran % (Auto) (0.00-0.4) % Nucleat RBC Rel Count (0.00-0.1) % Eos # (Auto) (0-0.5) x10^3/uL Immature Gran # (Auto) (0.00-0.03) x10^3u/L Absolute Lymphs (auto) (1.0-4.6) x10^3/uL Absolute Monos (auto) (0.0-1.3) x10^3/uL Absolute Nucleated RBC (0.00-0.01) x10^3u/L Lymphocytes % (24.0-44.0) % Monocytes % (0.0-12.0) % Eosinophils % (0.00-5.0) % Basophils % (0.0-0.4) % Absolute Granulocytes (1.4-6.9) x10^3/uL Basophils # (0-0.4) x10^3/uL Sodium (137-145) mmol/L Potassium (3.5-5.1) mmol/L Chloride (98-107) mmol/L Carbon Dioxide (22-30) mmol/L Anion Gap (5-15) MEQ/L BUN (9-20) mg/dL Creatinine (0.66-1.25) mg/dL Estimated GFR ML/MIN Glucose (74-106) mg/dL POC Glucometer (74 to 106) mg/dL Lactic Acid (0.4-2.0) Calcium (8.4-10.2) mg/dL Total Bilirubin (0.2-1.3) mg/dL AST (17-59) U/L ALT (0-50) U/L Alkaline Phosphatase (38-126) U/L Troponin I < 0.012 (0.000-0.034) ng/mL Serum Total Protein (6.3-8.2) g/dL Albumin (3.5-5.0) g/dL Urine Color (Yellow) Urine Appearance (Clear) Urine pH (4.6-8.0) Ur Specific [place] (1.005-1.030) Urine Protein (Negative) Urine Glucose (UA) (Negative) mg/dL Urine Ketones (Negative) Urine Blood (Negative) Urine Nitrite (Negative) Urine Bilirubin (Negative) Urine Urobilinogen (0.2) mg/dL Ur Leukocyte Esterase (Negative) U Hyaline Cast (Auto) (0-2) /LPF Urine Microscopic RBC (0-5) /HPF Urine Microscopic WBC (0-5) /HPF Ur Epithelial Cells (None Seen) /HPF Urine Bacteria (None Seen) /HPF Urine Culture Reflexed (NO) Monoscreen NEGATIVE (NEGATIVE) Influenza Type A Ag NEGATIVE (NEGATIVE) Influenza Type B Ag NEGATIVE (NEGATIVE) RSV (PCR) NEGATIVE (NEGATIVE) SARS-CoV-2 (PCR) NEGATIVE (NEGATIVE) Slides for Path Review 10/12/22 10/12/22 10/12/22 Range/Units 15:45 17:42 20:07 WBC (4.0-10.5) x10^3/uL RBC (4.1-5.6) x10^6/uL Hgb (12.5-18.0) g/dL Hct (42-50) % MCV (78-100) fL MCH (26-32) pg MCHC (32-36) g/dL RDW (11.5-14.0) % Plt Count (150-450) x10^3/uL MPV (7.5-11.0) fL Gran % (36.0-66.0) % Immature Gran % (Auto) (0.00-0.4) % Nucleat RBC Rel Count (0.00-0.1) % Eos # (Auto) (0-0.5) x10^3/uL Immature Gran # (Auto) (0.00-0.03) x10^3u/L Absolute Lymphs (auto) (1.0-4.6) x10^3/uL Absolute Monos (auto) (0.0-1.3) x10^3/uL Absolute Nucleated RBC (0.00-0.01) x10^3u/L Lymphocytes % (24.0-44.0) % Monocytes % (0.0-12.0) % Eosinophils % (0.00-5.0) % Basophils % (0.0-0.4) % Absolute Granulocytes (1.4-6.9) x10^3/uL Basophils # (0-0.4) x10^3/uL Sodium (137-145) mmol/L Potassium (3.5-5.1) mmol/L Chloride (98-107) mmol/L Carbon Dioxide (22-30) mmol/L Anion Gap (5-15) MEQ/L BUN (9-20) mg/dL Creatinine (0.66-1.25) mg/dL Estimated GFR ML/MIN Glucose (74-106) mg/dL POC Glucometer (74 to 106) mg/dL Lactic Acid 0.9 (0.4-2.0) Calcium (8.4-10.2) mg/dL Total Bilirubin (0.2-1.3) mg/dL AST (17-59) U/L ALT (0-50) U/L Alkaline Phosphatase (38-126) U/L Troponin I < 0.012 (0.000-0.034) ng/mL Serum Total Protein (6.3-8.2) g/dL Albumin (3.5-5.0) g/dL Urine Color Dark Yellow (Yellow) Urine Appearance Clear (Clear) Urine pH 6.5 (4.6-8.0) Ur Specific [place] 1.010 (1.005-1.030) Urine Protein Negative (Negative) Urine Glucose (UA) Negative (Negative) mg/dL Urine Ketones Negative (Negative) Urine Blood Negative (Negative) Urine Nitrite Negative (Negative) Urine Bilirubin Negative (Negative) Urine Urobilinogen 1.0 A (0.2) mg/dL Ur Leukocyte Esterase Negative (Negative) U Hyaline Cast (Auto) None Seen (0-2) /LPF Urine Microscopic RBC 0-2 (0-5) /HPF Urine Microscopic WBC 0-2 (0-5) /HPF Ur Epithelial Cells Rare (None Seen) /HPF Urine Bacteria Rare A (None Seen) /HPF Urine Culture Reflexed NO (NO) Monoscreen (NEGATIVE) Influenza Type A Ag (NEGATIVE) Influenza Type B Ag (NEGATIVE) RSV (PCR) (NEGATIVE) SARS-CoV-2 (PCR) (NEGATIVE) Slides for Path Review 10/12/22 Range/Units 20:52 WBC (4.0-10.5) x10^3/uL RBC (4.1-5.6) x10^6/uL Hgb (12.5-18.0) g/dL Hct (42-50) % MCV (78-100) fL MCH (26-32) pg MCHC (32-36) g/dL RDW (11.5-14.0) % Plt Count (150-450) x10^3/uL MPV (7.5-11.0) fL Gran % (36.0-66.0) % Immature Gran % (Auto) (0.00-0.4) % Nucleat RBC Rel Count (0.00-0.1) % Eos # (Auto) (0-0.5) x10^3/uL Immature Gran # (Auto) (0.00-0.03) x10^3u/L Absolute Lymphs (auto) (1.0-4.6) x10^3/uL Absolute Monos (auto) (0.0-1.3) x10^3/uL Absolute Nucleated RBC (0.00-0.01) x10^3u/L Lymphocytes % (24.0-44.0) % Monocytes % (0.0-12.0) % Eosinophils % (0.00-5.0) % Basophils % (0.0-0.4) % Absolute Granulocytes (1.4-6.9) x10^3/uL Basophils # (0-0.4) x10^3/uL Sodium (137-145) mmol/L Potassium (3.5-5.1) mmol/L Chloride (98-107) mmol/L Carbon Dioxide (22-30) mmol/L Anion Gap (5-15) MEQ/L BUN (9-20) mg/dL Creatinine (0.66-1.25) mg/dL Estimated GFR ML/MIN Glucose (74-106) mg/dL POC Glucometer 148 H (74 to 106) mg/dL Lactic Acid (0.4-2.0) Calcium (8.4-10.2) mg/dL Total Bilirubin (0.2-1.3) mg/dL AST (17-59) U/L ALT (0-50) U/L Alkaline Phosphatase (38-126) U/L Troponin I (0.000-0.034) ng/mL Serum Total Protein (6.3-8.2) g/dL Albumin (3.5-5.0) g/dL Urine Color (Yellow) Urine Appearance (Clear) Urine pH (4.6-8.0) Ur Specific [place] (1.005-1.030) Urine Protein (Negative) Urine Glucose (UA) (Negative) mg/dL Urine Ketones (Negative) Urine Blood (Negative) Urine Nitrite (Negative) Urine Bilirubin (Negative) Urine Urobilinogen (0.2) mg/dL Ur Leukocyte Esterase (Negative) U Hyaline Cast (Auto) (0-2) /LPF Urine Microscopic RBC (0-5) /HPF Urine Microscopic WBC (0-5) /HPF Ur Epithelial Cells (None Seen) /HPF Urine Bacteria (None Seen) /HPF Urine Culture Reflexed (NO) Monoscreen (NEGATIVE) Influenza Type A Ag (NEGATIVE) Influenza Type B Ag (NEGATIVE) RSV (PCR) (NEGATIVE) SARS-CoV-2 (PCR) (NEGATIVE) Slides for Path Review - Radiology Impressions Radiology Exams & Impressions: Radiology Procedures Category Date Time Status ABDOMEN AND PELVIS W/0 CONTRAS [CT] Stat Exams 10/12/22 18:01 Completed CHEST 1 VIEW (PORTABLE) Stat Exams 10/12/22 16:33 Completed HEAD WITHOUT CONTRAST [CT] Stat Exams 10/12/22 18:05 Completed - Other Procedures and Tests Respiratory Therapy 10/12/22 20:14 EKG REPEAT IN AM 10/12/22 21:48 Respiratory Therapy Assessment DAILY Assessment/Plan (1) Cholecystitis Current Visit: Yes Status: Acute Assessment & Plan: ASSESSMENT 1. Pneumonia 2. Possible Acute Cholecystitis 3. Hyponatremia 4. Elevated Liver Enzymes 5. Hypertension 6. Hyperlipidemia 7. Type II Diabetes Mellitus 8. Coronary Artery Disease s/p CABG 9. Failure to Thrive PLAN 1. Azithromycin and zosyn to cover PNA and biliary tree 2. Surgery consult; may need HIDA - abdominal exam not correlating with imaging 3. Gentle fluids 4. ISS; NPO except meds in case he is a surgical candidate - hold insulin regimen 5. Hold eliquis - unclear why he is on it 6. Monitor LFTs 7. Ibuprofen for pain 8. Will need SW consult for placement SCDs/PPI The entirety of this encounter was done via telemedicine Omar Alvarez MD Pulmonary and Critical Care Medicine Code(s): K81.9 - CHOLECYSTITIS, UNSPECIFIED Telemedicine Encounter - Telemedicine Encounter Telemedicine Encounter: The entirety of this encounter was performed via Telemedicine"
[2022-10-12] MEDS ORDERED: MOTRIN 600 MG PO PRN (23:12)
[2022-10-12] MEDS ORDERED: MOTRIN 400 MG ONE (23:21)
[2022-10-12] MEDS ORDERED: Sodium Chloride 0.9% 100 ML ONE (23:23)
[2022-10-12] MEDS ORDERED: PIPERACILLIN/TAZOBACTAM IV ONE (23:24)
[2022-10-12] MEDS ORDERED: Sodium Chloride 100ML MINI-BAG PLUS 100 ML IV ONE (23:25)
[2022-10-12] MEDS: Sodium Chloride 0.9% 1000 ML 1,000 ML IV SCH (23:55)
[2022-10-12] MEDS: PIPERACILLIN/TAZOBACTAM 3.375 GM in Sodium Chloride 100ML MINI-BAG PLUS 100 ML IV SCH (23:55)
[2022-10-13] MEDS: APRESOLINE 20 MG/ML INJ IV PRN (04:07)
[2022-10-13] MEDS ORDERED: Sodium Chloride 100ML MINI-BAG PLUS 100 ML IV ONE (05:26)
[2022-10-13] MEDS ORDERED: PIPERACILLIN/TAZOBACTAM IV ONE (05:26)
[2022-10-13] MEDS: PIPERACILLIN/TAZOBACTAM 3.375 GM in Sodium Chloride 100ML MINI-BAG PLUS 100 ML IV SCH ×3 (05:29→17:12)
[2022-10-13 05:57] LABS: BASOPHIL % 1.1 % (0.0-0.4); Basophil (Absolute #) 0.09 x10^3/uL (0-0.4); Eosinophil % 1.5 % (0.00-5.0); Eosinophil (Absolute #) 0.12 x10^3/uL (0-0.5); Hemoglobin 10.5 g/dL (12.5-18.0); IMMATURE GRAN % 3.8 % (0.00-0.4); Lymphocyte (Absolute #) 0.72 x10^3/uL (1.0-4.6); Mean Cell Volume 95.7 fL (78-100); Mean Corpuscular Hemoglobin 30.4 pg (26-32); Mean Corpuscular Hgb Concent. 31.8 g/dL (32-36); Mean Platelet Volume 10.6 fL (7.5-11.0); Monocyte (Absolute #) 0.45 x10^3/uL (0.0-1.3); Monocytes % 5.6 % (0.0-12.0); Platelet Count 345 x10^3/uL (150-450); Red Blood Count 3.45 x10^6/uL (4.1-5.6); Red Cell Distribution Width 13.7 % (11.5-14.0)
[2022-10-13 06:14] LABS: ALBUMIN 2.9 g/dL (3.5-5.0); ALKALINE PHOSPHATASE 933 U/L (38-126); ANION GAP 11.5 MEQ/L (5-15); BLOOD UREA NITROGEN 13 mg/dL (9-20); CHLORIDE 98 mmol/L (98-107); Calcium 8.2 mg/dL (8.4-10.2); Carbon Dioxide 26 mmol/L (22-30); Creatinine 1 0.56 mg/dL (0.66-1.25); EST GLOMERULAR FILTRATION RATE > 60.0 ML/MIN; Glucose 265 mg/dL (74-106); NT PRO BNPII 791 pg/mL (<300); Potassium 3.8 mmol/L (3.5-5.1); SGOT/AST 129 U/L (17-59); SGPT/ALT 213 U/L (0-50); SODIUM 131 mmol/L (137-145)
[2022-10-13 06:47] LABS: AMYLASE < 30 U/L (30-110); LIPASE 16 U/L (23-300)
[2022-10-13] MEDS ORDERED: MOTRIN 400 MG PO PRN (07:21)
[2022-10-13] MEDS: Protonix 40MG Tablet PO SCH (09:58)
[2022-10-13] MEDS: Zithromax 500 MG/ 250 ML NaCl Premix 500 MG/250 ML IVPB IV SCH (09:58)
[2022-10-13] MEDS: Flomax 0.4 MG PO SCH (09:58)
[2022-10-13] MEDS: TYLENOL 325 MG PO PRN ×2 (10:02→14:23)
[2022-10-13] MEDS: PROAMATINE PO SCH ×3 (11:31→21:13)
[2022-10-13] MEDS: HUMALOG SQ PRN (11:54)
[2022-10-13] MEDS: NORCO 5/325 MG PO PRN (18:05)
--- NOTE | 2022-10-13 20:18 | XRAY ---
Indication: Right upper quadrant pain. Two-dimensional right upper quadrant abdominal sonogram performed. Comparison: None Visualized liver and pancreas appear homogeneous in echogenicity. No organomegaly or free fluid. Gallbladder partially contracted, reasonably explaining prominent wall thickening up to 2.4 mm. Minimal gallbladder sludge. No gallstones or pericholecystic fluid. Common bile duct measures 3.2 mm. No intrahepatic biliary distention. Right kidney measures 10.7 cm in length and sonographically unremarkable. Impression: Partially contracted gallbladder with sludge. Negative for cholelithiasis, acute cholecystitis, or biliary distention. Comment: Preliminary report was given.
--- NOTE | 2022-10-13 20:20 | PCM.CONS ---
History of Present Illness - Reason for Consult Chief Complaint: pna Requesting Provider: KATIE MASON Consulting Provider: MAEGAN COOK MD hx per chart review, d/w RN and ED. pt is a very poor historian. is able to say he ended up in hospital after a fal l. this was at [facility] where apparently he was treated for rib fx. presents with weakness. cxr/ct with likely pna. gallbladder with distended on the ct scan and mildly elevated transaminases so surg was consulted. US pending from today with some sludge. pt denies ruq pain. does say he has pain and points to his lower chestwall/upper abdomen. History of Present Illness: is a 67 year old male. Medications & Allergies Home Medications: Home Medication List Albuterol Sulfate [Albuterol Sulfate Hfa] 2 puff IH QID 10/24/20 [History Confirmed 10/12/22] Budesonide [Budesonide Dr] 3 mg PO DAILY 10/24/20 [History Confirmed 10/12/22] Insulin Detemir [Levemir] 9 units SQ HS 10/24/20 [History Confirmed 10/12/22] PANTOPRAZOLE 40 mg Tablet [Protonix 40MG Tablet] 40 mg PO DAILY 10/24/20 [History Confirmed 10/12/22] Dronedarone Hydrochloride 400* [Multaq 400 MG] 200 mg PO BID 09/16/21 [History Confirmed 02/16/22] Insulin Aspart (Niacinamide) [Fiasp 100 Unit/ml Vial] 8 unit SQ BREAKFAST 09/16/21 [History Confirmed 10/12/22] Insulin Aspart (Niacinamide) [Fiasp 100 Unit/ml Vial] 8 units SQ EVENING MEAL [History Confirmed 10/12/22] Insulin Aspart (Niacinamide) [Fiasp 100 Unit/ml Vial] 8 units SQ LUNCH 09/16/21 [History Confirmed 10/12/22] Atorvastatin Calcium 40 mg PO QHS 01/01/22 [History Confirmed 10/12/22] Tamsulosin HCl 0.4 mg [Flomax 0.4 MG] 0.4 mg PO DAILY 01/01/22 [History Confirmed 10/12/22] Cyanocobalamin (Vitamin B-12) [Vitamin B-12] 1,000 mcg PO DAILY 01/02/22 [History Confirmed 10/12/22] Alpha Lipoic Acid 300 mg PO BID 10/12/22 [History Confirmed 10/12/22] Apixaban [Eliquis] 1 tab PO BID 10/12/22 [History Confirmed 10/12/22] Cholecalciferol (Vitamin D3) [Vitamin D3] 1 tab PO WEEKLY 10/12/22 [History Confirmed 10/12/22] Midodrine HCl [Proamatine] 1 tab PO TID 10/12/22 [History Confirmed 10/12/22] Hayward-3 Fatty Acids [Hayward-3] 1 tab PO DAILY 10/12/22 [History Confirmed 10/12/22] Psyllium Packet [Metamucil PACKET] 1 packet PO DAILY 10/12/22 [History Confirmed 10/12/22] Allergies/Adverse Reactions: Allergies Allergy/AdvReac Type Severity Reaction Status Date / Time No Known Drug Allergies Allergy Verified 10/12/22 15:19 - Past Medical History Past Medical History: Yes Neurological History: Peripheral Neuropathy, Stroke, TIA ENT History: Other Cardiac History: Coronary Artery Disease, Myocardial Infarction ([place]) Respiratory History: No Pertinent History Endocrine Medical History: Diabetes Type II Musculoskelatal History: Arthritis GI Medical History: Crohns Disease History: No Pertinent History Pyscho-Social History: No Pertinent History Male Reproductive Disorders: Prostate Problems Comment: CABG X 3 (2008), CROHNS DISEASE, 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 - Past Surgical History Past Surgical History: Yes Neuro Surgical History: No Pertinent History Cardiac History: CABG, Cardiac Catheterization, Cardiac Stent, Other Respiratory Surgery: No Pertinent History GI Surgical History: Appendectomy, Other Genitourinary Surgical Hx: No Pertinent History Musculskeletal Surgical Hx: Orthopedic Surgery Male Surgical History: No Pertinent History Other Surgical History: 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, intestinal resection, triple bypass - Social History Smoking Status: Former smoker How long have you smoked: years Exposure to second hand smoke: Yes Alcohol: Rarely Drug Use: none Significant Family History: no pertinent family hx - Physical Exam Vital Signs: Vital Signs - 24 hr Temp Pulse Resp BP Pulse Ox 10/13/22 18:20 70 16 94 L 10/13/22 16:26 98.4 F 70 18 153/68 93 L 10/13/22 13:00 97.7 F 71 17 154/70 95 10/13/22 09:00 97.5 F 87 18 95/65 92 L 10/13/22 07:27 76 16 92 L 10/13/22 05:56 80 151/69 10/13/22 05:54 97.9 F 71 17 189/86 95 10/13/22 03:59 97.9 F 71 17 189/86 95 10/13/22 00:15 98.5 F 68 16 173/79 94 L 10/13/22 00:00 98.1 F 61 18 154/68 97 10/12/22 21:10 61 18 97 Additional Findings: 10/13/22 20:16 nad no scleral icterus thin nonlabord repss reg rate right chest mild ttp abd nd, soft, nttp no hernandez. no r/g. no edema left gemur nail scar. moving all extrem warm dry. gcs 14 v4. Results - Labs Lab/Micro Results: Lab Results-Last 24 Hours 10/12/22 10/12/22 10/12/22 Range/Units 20:07 20:52 23:56 WBC (4.0-10.5) x10^3/uL RBC (4.1-5.6) x10^6/uL Hgb (12.5-18.0) g/dL Hct (42-50) % MCV (78-100) fL MCH (26-32) pg MCHC (32-36) g/dL RDW (11.5-14.0) % Plt Count (150-450) x10^3/uL MPV (7.5-11.0) fL Gran % (36.0-66.0) % Immature Gran % (Auto) (0.00-0.4) % Nucleat RBC Rel Count (0.00-0.1) % Eos # (Auto) (0-0.5) x10^3/uL Immature Gran # (Auto) (0.00-0.03) x10^3u/L Absolute Lymphs (auto) (1.0-4.6) x10^3/uL Absolute Monos (auto) (0.0-1.3) x10^3/uL Absolute Nucleated RBC (0.00-0.01) x10^3u/L Lymphocytes % (24.0-44.0) % Monocytes % (0.0-12.0) % Eosinophils % (0.00-5.0) % Basophils % (0.0-0.4) % Absolute Granulocytes (1.4-6.9) x10^3/uL Basophils # (0-0.4) x10^3/uL Sodium (137-145) mmol/L Potassium (3.5-5.1) mmol/L Chloride (98-107) mmol/L Carbon Dioxide (22-30) mmol/L Anion Gap (5-15) MEQ/L BUN (9-20) mg/dL Creatinine (0.66-1.25) mg/dL Estimated GFR ML/MIN Glucose (74-106) mg/dL POC Glucometer 148 H (74 to 106) mg/dL Calcium (8.4-10.2) mg/dL Total Bilirubin (0.2-1.3) mg/dL AST (17-59) U/L ALT (0-50) U/L Alkaline Phosphatase (38-126) U/L Troponin I < 0.012 < 0.012 (0.000-0.034) ng/mL NT-Pro-B Natriuret Pep (<300) pg/mL Serum Total Protein (6.3-8.2) g/dL Albumin (3.5-5.0) g/dL Amylase (30-110) U/L Lipase (23-300) U/L 10/13/22 10/13/22 10/13/22 Range/Units 05:29 05:30 05:30 WBC 8.0 (4.0-10.5) x10^3/uL RBC 3.45 L (4.1-5.6) x10^6/uL Hgb 10.5 L (12.5-18.0) g/dL Hct 33.0 L (42-50) % MCV 95.7 (78-100) fL MCH 30.4 (26-32) pg MCHC 31.8 L (32-36) g/dL RDW 13.7 (11.5-14.0) % Plt Count 345 (150-450) x10^3/uL MPV 10.6 (7.5-11.0) fL Gran % 79.0 H (36.0-66.0) % Immature Gran % (Auto) 3.8 H (0.00-0.4) % Nucleat RBC Rel Count 0.0 (0.00-0.1) % Eos # (Auto) 0.12 (0-0.5) x10^3/uL Immature Gran # (Auto) 0.30 H (0.00-0.03) x10^3u/L Absolute Lymphs (auto) 0.72 L (1.0-4.6) x10^3/uL Absolute Monos (auto) 0.45 (0.0-1.3) x10^3/uL Absolute Nucleated RBC 0.00 (0.00-0.01) x10^3u/L Lymphocytes % 9.0 L (24.0-44.0) % Monocytes % 5.6 (0.0-12.0) % Eosinophils % 1.5 (0.00-5.0) % Basophils % 1.1 (0.0-0.4) % Absolute Granulocytes 6.30 (1.4-6.9) x10^3/uL Basophils # 0.09 (0-0.4) x10^3/uL Sodium 131 L (137-145) mmol/L Potassium 3.8 (3.5-5.1) mmol/L Chloride 98 (98-107) mmol/L Carbon Dioxide 26 (22-30) mmol/L Anion Gap 11.5 (5-15) MEQ/L BUN 13 (9-20) mg/dL Creatinine 0.56 L (0.66-1.25) mg/dL Estimated GFR > 60.0 ML/MIN Glucose 265 H (74-106) mg/dL POC Glucometer 256 H (74 to 106) mg/dL Calcium 8.2 L (8.4-10.2) mg/dL Total Bilirubin 1.40 H (0.2-1.3) mg/dL AST 129 H (17-59) U/L ALT 213 H (0-50) U/L Alkaline Phosphatase 933 H (38-126) U/L Troponin I (0.000-0.034) ng/mL NT-Pro-B Natriuret Pep 791 (<300) pg/mL Serum Total Protein 6.0 L (6.3-8.2) g/dL Albumin 2.9 L (3.5-5.0) g/dL Amylase (30-110) U/L Lipase (23-300) U/L 10/13/22 10/13/22 10/13/22 Range/Units 05:30 06:59 11:37 WBC (4.0-10.5) x10^3/uL RBC (4.1-5.6) x10^6/uL Hgb (12.5-18.0) g/dL Hct (42-50) % MCV (78-100) fL MCH (26-32) pg MCHC (32-36) g/dL RDW (11.5-14.0) % Plt Count (150-450) x10^3/uL MPV (7.5-11.0) fL Gran % (36.0-66.0) % Immature Gran % (Auto) (0.00-0.4) % Nucleat RBC Rel Count (0.00-0.1) % Eos # (Auto) (0-0.5) x10^3/uL Immature Gran # (Auto) (0.00-0.03) x10^3u/L Absolute Lymphs (auto) (1.0-4.6) x10^3/uL Absolute Monos (auto) (0.0-1.3) x10^3/uL Absolute Nucleated RBC (0.00-0.01) x10^3u/L Lymphocytes % (24.0-44.0) % Monocytes % (0.0-12.0) % Eosinophils % (0.00-5.0) % Basophils % (0.0-0.4) % Absolute Granulocytes (1.4-6.9) x10^3/uL Basophils # (0-0.4) x10^3/uL Sodium (137-145) mmol/L Potassium (3.5-5.1) mmol/L Chloride (98-107) mmol/L Carbon Dioxide (22-30) mmol/L Anion Gap (5-15) MEQ/L BUN (9-20) mg/dL Creatinine (0.66-1.25) mg/dL Estimated GFR ML/MIN Glucose (74-106) mg/dL POC Glucometer 254 H 247 H (74 to 106) mg/dL Calcium (8.4-10.2) mg/dL Total Bilirubin (0.2-1.3) mg/dL AST (17-59) U/L ALT (0-50) U/L Alkaline Phosphatase (38-126) U/L Troponin I (0.000-0.034) ng/mL NT-Pro-B Natriuret Pep (<300) pg/mL Serum Total Protein (6.3-8.2) g/dL Albumin (3.5-5.0) g/dL Amylase < 30 L (30-110) U/L Lipase 16 L (23-300) U/L 10/13/22 10/13/22 Range/Units 16:13 20:00 WBC (4.0-10.5) x10^3/uL RBC (4.1-5.6) x10^6/uL Hgb (12.5-18.0) g/dL Hct (42-50) % MCV (78-100) fL MCH (26-32) pg MCHC (32-36) g/dL RDW (11.5-14.0) % Plt Count (150-450) x10^3/uL MPV (7.5-11.0) fL Gran % (36.0-66.0) % Immature Gran % (Auto) (0.00-0.4) % Nucleat RBC Rel Count (0.00-0.1) % Eos # (Auto) (0-0.5) x10^3/uL Immature Gran # (Auto) (0.00-0.03) x10^3u/L Absolute Lymphs (auto) (1.0-4.6) x10^3/uL Absolute Monos (auto) (0.0-1.3) x10^3/uL Absolute Nucleated RBC (0.00-0.01) x10^3u/L Lymphocytes % (24.0-44.0) % Monocytes % (0.0-12.0) % Eosinophils % (0.00-5.0) % Basophils % (0.0-0.4) % Absolute Granulocytes (1.4-6.9) x10^3/uL Basophils # (0-0.4) x10^3/uL Sodium (137-145) mmol/L Potassium (3.5-5.1) mmol/L Chloride (98-107) mmol/L Carbon Dioxide (22-30) mmol/L Anion Gap (5-15) MEQ/L BUN (9-20) mg/dL Creatinine (0.66-1.25) mg/dL Estimated GFR ML/MIN Glucose (74-106) mg/dL POC Glucometer 238 H 220 H (74 to 106) mg/dL Calcium (8.4-10.2) mg/dL Total Bilirubin (0.2-1.3) mg/dL AST (17-59) U/L ALT (0-50) U/L Alkaline Phosphatase (38-126) U/L Troponin I (0.000-0.034) ng/mL NT-Pro-B Natriuret Pep (<300) pg/mL Serum Total Protein (6.3-8.2) g/dL Albumin (3.5-5.0) g/dL Amylase (30-110) U/L Lipase (23-300) U/L - Radiology Impressions Radiology Exams & Impressions: Radiology Procedures Category Date Time Status ABDOMEN AND PELVIS W/0 CONTRAS [CT] Stat Exams 10/12/22 18:01 Completed ABDOMINAL-LIMITED [US] Stat Exams 10/13/22 16:04 Taken CHEST 1 VIEW (PORTABLE) Stat Exams 10/12/22 16:33 Completed HEAD WITHOUT CONTRAST [CT] Stat Exams 10/12/22 18:05 Completed - Other Procedures and Tests Respiratory Therapy 10/12/22 21:48 Respiratory Therapy Assessment DAILY Assessment/Plan (1) Elevated liver enzymes Current Visit: Yes Status: Acute Assessment & Plan: 67yo male mainly presents due to pna with recent rib fractures. he doesn't really have any specific upper abdominal pain that lines up with cholecystitis. the transaminases are somewhat elevated. bilirubin ok. US prelim results with maybe sludge. wall 2mm, no perichole fluid. no hernandez sign. cbd normal. -i would not do anything about his gallbladder at this point. we could reasses if he were to develop symptoms from it. even at that point we would probably consider hida scan as i would not operate on this gentleman for mildly symptomatic cholecystitis. i would probably only operate for acute hida scan confirmed cholecystitis. all imaging reviewed. there does appear to be right rib fx on the upper aspect of the abdominal ct. Code(s): R74.8 - ABNORMAL LEVELS OF OTHER SERUM ENZYMES
[2022-10-13] MEDS: Sodium Chloride 0.9% 1000 ML 1,000 ML IV SCH (21:13)
[2022-10-13] MEDS: ZOCOR 20MG PO SCH (21:14)
[2022-10-14] MEDS: PIPERACILLIN/TAZOBACTAM 3.375 GM in Sodium Chloride 100ML MINI-BAG PLUS 100 ML IV SCH ×4 (00:38→17:33)
[2022-10-14] MEDS: APRESOLINE 20 MG/ML INJ IV PRN (03:48)
[2022-10-14] MEDS: VENTOLIN COMMON CANISTER IH SCH ×2 (07:48→07:49)
[2022-10-14 08:09] LABS: HBsAg Screen Negative (Negative); HCV Ab Non Reactive (Non Reactive); Hep A Ab, IgM Negative (Negative); Hep B Core Ab, IgM Negative (Negative)
[2022-10-14] MEDS: HUMALOG SQ PRN ×4 (08:45→20:34)
[2022-10-14] MEDS: NORCO 5/325 MG PO PRN ×4 (08:45→23:27)
[2022-10-14] MEDS: Zithromax 500 MG/ 250 ML NaCl Premix 500 MG/250 ML IVPB IV SCH (08:45)
[2022-10-14] MEDS: Flomax 0.4 MG PO SCH (08:45)
[2022-10-14] MEDS: Protonix 40MG Tablet PO SCH (08:46)
[2022-10-14] MEDS: PROAMATINE PO SCH ×3 (08:46→20:31)
[2022-10-14 10:55] LABS: Absolute Neutrophil Ct (ANC) 7.26 x10^3/uL (1.4-6.9); BASOPHIL % 0.9 % (0.0-0.4); Basophil (Absolute #) 0.08 x10^3/uL (0-0.4); Eosinophil % 1.7 % (0.00-5.0); Eosinophil (Absolute #) 0.15 x10^3/uL (0-0.5); Hematocrit 30.3 % (42-50); Hemoglobin 9.9 g/dL (12.5-18.0); IMMATURE GRAN # 0.15 x10^3u/L (0.00-0.03); IMMATURE GRAN % 1.7 % (0.00-0.4); Lymphocyte (Absolute #) 0.51 x10^3/uL (1.0-4.6); Lymphocytes % 5.9 % (24.0-44.0); Mean Cell Volume 94.1 fL (78-100); Mean Corpuscular Hemoglobin 30.7 pg (26-32); Mean Corpuscular Hgb Concent. 32.7 g/dL (32-36); Mean Platelet Volume 10.6 fL (7.5-11.0); Monocyte (Absolute #) 0.43 x10^3/uL (0.0-1.3); Neutrophil % 84.8 % (36.0-66.0); Platelet Count 324 x10^3/uL (150-450); Red Blood Count 3.22 x10^6/uL (4.1-5.6); Red Cell Distribution Width 13.5 % (11.5-14.0); White Blood Count 8.6 x10^3/uL (4.0-10.5)
[2022-10-14 11:27] LABS: ALBUMIN 2.7 g/dL (3.5-5.0); ALKALINE PHOSPHATASE 774 U/L (38-126); BLOOD UREA NITROGEN 11 mg/dL (9-20); CHLORIDE 95 mmol/L (98-107); Calcium 8.2 mg/dL (8.4-10.2); Carbon Dioxide 30 mmol/L (22-30); Creatinine 1 0.53 mg/dL (0.66-1.25); EST GLOMERULAR FILTRATION RATE > 60.0 ML/MIN; Glucose 385 mg/dL (74-106); Potassium 3.7 mmol/L (3.5-5.1); SGOT/AST 50 U/L (17-59); SGPT/ALT 125 U/L (0-50); SODIUM 131 mmol/L (137-145); Total Protein 5.7 g/dL (6.3-8.2)
[2022-10-14 13:42] LABS: Slide Review 1 YES
[2022-10-14] MEDS ORDERED: Mucinex 600MG ER Tabs PO PRN (20:06)
[2022-10-14] MEDS: ZOCOR 20MG PO SCH (20:34)
[2022-10-15] MEDS: PIPERACILLIN/TAZOBACTAM 3.375 GM in Sodium Chloride 100ML MINI-BAG PLUS 100 ML IV SCH ×4 (00:32→18:03)
[2022-10-15 05:05] LABS: ALBUMIN 2.9 g/dL (3.5-5.0); ALKALINE PHOSPHATASE 715 U/L (38-126); ANION GAP 9.5 MEQ/L (5-15); BLOOD UREA NITROGEN 9 mg/dL (9-20); CHLORIDE 98 mmol/L (98-107); Calcium 8.6 mg/dL (8.4-10.2); Carbon Dioxide 31 mmol/L (22-30); Creatinine 1 0.56 mg/dL (0.66-1.25); EST GLOMERULAR FILTRATION RATE > 60.0 ML/MIN; Glucose 162 mg/dL (74-106); Potassium 3.6 mmol/L (3.5-5.1); SGOT/AST 42 U/L (17-59); SGPT/ALT 111 U/L (0-50); SODIUM 136 mmol/L (137-145); Total Protein 6.1 g/dL (6.3-8.2)
[2022-10-15 05:13] LABS: Absolute Neutrophil Ct (ANC) 7.01 x10^3/uL (1.4-6.9); BASOPHIL % 1.2 % (0.0-0.4); Basophil (Absolute #) 0.11 x10^3/uL (0-0.4); Eosinophil % 3.1 % (0.00-5.0); Eosinophil (Absolute #) 0.27 x10^3/uL (0-0.5); Hematocrit 31.8 % (42-50); IMMATURE GRAN # 0.17 x10^3u/L (0.00-0.03); IMMATURE GRAN % 1.9 % (0.00-0.4); Lymphocyte (Absolute #) 0.77 x10^3/uL (1.0-4.6); Lymphocytes % 8.7 % (24.0-44.0); Mean Cell Volume 94.4 fL (78-100); Mean Corpuscular Hemoglobin 29.7 pg (26-32); Mean Corpuscular Hgb Concent. 31.4 g/dL (32-36); Mean Platelet Volume 10.9 fL (7.5-11.0); Monocytes % 5.7 % (0.0-12.0); Neutrophil % 79.4 % (36.0-66.0); Platelet Count 363 x10^3/uL (150-450); Red Blood Count 3.37 x10^6/uL (4.1-5.6); Red Cell Distribution Width 13.8 % (11.5-14.0); White Blood Count 8.8 x10^3/uL (4.0-10.5)
[2022-10-15] MEDS ORDERED: Mucinex 600MG ER Tabs PO PRN (07:00)
--- NOTE | 2022-10-15 08:40 | XRAY ---
Indication: Follow-up pneumonia. Comparison: October 12, 2022 Portable chest again demonstrates bilateral infrahilar interstitial alveolar opacities, worsened on the left. No large effusion. Stable COPD and tiny calcified granulomas. Heart not enlarged again with CABG.
[2022-10-15] MEDS: Protonix 40MG Tablet PO SCH (09:10)
[2022-10-15] MEDS: Zithromax 500 MG/ 250 ML NaCl Premix 500 MG/250 ML IVPB IV SCH (09:10)
[2022-10-15] MEDS: PROAMATINE PO SCH ×3 (09:10→18:05)
[2022-10-15] MEDS: Flomax 0.4 MG PO SCH (09:11)
[2022-10-15] MEDS: HUMALOG SQ PRN ×4 (09:11→22:01)
[2022-10-15] MEDS: NORCO 5/325 MG PO PRN (09:12)
[2022-10-15] MEDS ORDERED: Cyclobenzaprine 10 MG PO PRN (11:27)
[2022-10-15] MEDS: PERCOCET TABLET 5/325MG PO PRN ×2 (12:51→19:20)
--- NOTE | 2022-10-15 14:33 | XRAY ---
Indication: Pain. Comparison: None 2 view right ribs demonstrates minimally displaced anterolateral 8-10 rib fractures without pneumothorax/hemothorax. Elsewhere osteopenia, CABG surgery, and scattered arteriosclerotic calcifications. No other bony, articular, or soft tissue abnormalities.
--- NOTE | 2022-10-15 19:50 | PCM.NOTE ---
Date and Time: 10/15/221948 Subjective Assessment: c/o pain right side points to right lateral rib cage ,states Hx fall OBJECTIVE DATA Vital Signs: Vital Signs - 24 hr Temp Pulse Resp BP Pulse Ox 10/15/22 19:22 97.3 F 70 16 100/49 91 L 10/15/22 19:21 63 16 95 10/15/22 16:00 97.5 F 61 17 143/66 94 L 10/15/22 11:36 97.8 F 67 18 171/74 93 L 10/15/22 07:27 64 18 94 L 10/15/22 07:22 97.5 F 63 18 175/75 92 L 10/15/22 04:00 97.5 F 61 18 180/77 97 10/14/22 23:53 97.7 F 67 20 154/69 92 L 10/14/22 19:58 98.2 F 61 20 145/68 92 L Pain Assessment - Last Documented Pain Intensity 7 Pain Scale Used 0-10 Pain Scale Intake and Output: Intake & Output 10/13/22 10/14/22 10/15/22 10/16/22 11:59 11:59 11:59 11:59 Intake Total 251 1823 1830 240 Output Total 800 2970 8680 048 Balance -025 -088 -2469 -329 Weight 55.5 kg 55.2 kg 52.7 kg Lab Results: Lab Results-Last 24 Hours 10/14/22 10/15/22 10/15/22 Range/Units 20:12 04:22 04:22 WBC 8.8 (4.0-10.5) x10^3/uL RBC 3.37 L (4.1-5.6) x10^6/uL Hgb 10.0 L (12.5-18.0) g/dL Hct 31.8 L (42-50) % MCV 94.4 (78-100) fL MCH 29.7 (26-32) pg MCHC 31.4 L (32-36) g/dL RDW 13.8 (11.5-14.0) % Plt Count 363 (150-450) x10^3/uL MPV 10.9 (7.5-11.0) fL Gran % 79.4 H (36.0-66.0) % Immature Gran % (Auto) 1.9 H (0.00-0.4) % Nucleat RBC Rel Count 0.0 (0.00-0.1) % Eos # (Auto) 0.27 (0-0.5) x10^3/uL Immature Gran # (Auto) 0.17 H (0.00-0.03) x10^3u/L Absolute Lymphs (auto) 0.77 L (1.0-4.6) x10^3/uL Absolute Monos (auto) 0.50 (0.0-1.3) x10^3/uL Absolute Nucleated RBC 0.00 (0.00-0.01) x10^3u/L Lymphocytes % 8.7 L (24.0-44.0) % Monocytes % 5.7 (0.0-12.0) % Eosinophils % 3.1 (0.00-5.0) % Basophils % 1.2 (0.0-0.4) % Absolute Granulocytes 7.01 H (1.4-6.9) x10^3/uL Basophils # 0.11 (0-0.4) x10^3/uL Sodium 136 L (137-145) mmol/L Potassium 3.6 (3.5-5.1) mmol/L Chloride 98 (98-107) mmol/L Carbon Dioxide 31 H (22-30) mmol/L Anion Gap 9.5 (5-15) MEQ/L BUN 9 (9-20) mg/dL Creatinine 0.56 L (0.66-1.25) mg/dL Estimated GFR > 60.0 ML/MIN Glucose 162 H (74-106) mg/dL POC Glucometer 282 H (74 to 106) mg/dL Calcium 8.6 (8.4-10.2) mg/dL Total Bilirubin 1.20 (0.2-1.3) mg/dL AST 42 (17-59) U/L ALT 111 H (0-50) U/L Alkaline Phosphatase 715 H (38-126) U/L Serum Total Protein 6.1 L (6.3-8.2) g/dL Albumin 2.9 L (3.5-5.0) g/dL 10/15/22 10/15/22 10/15/22 Range/Units 07:08 11:25 16:19 WBC (4.0-10.5) x10^3/uL RBC (4.1-5.6) x10^6/uL Hgb (12.5-18.0) g/dL Hct (42-50) % MCV (78-100) fL MCH (26-32) pg MCHC (32-36) g/dL RDW (11.5-14.0) % Plt Count (150-450) x10^3/uL MPV (7.5-11.0) fL Gran % (36.0-66.0) % Immature Gran % (Auto) (0.00-0.4) % Nucleat RBC Rel Count (0.00-0.1) % Eos # (Auto) (0-0.5) x10^3/uL Immature Gran # (Auto) (0.00-0.03) x10^3u/L Absolute Lymphs (auto) (1.0-4.6) x10^3/uL Absolute Monos (auto) (0.0-1.3) x10^3/uL Absolute Nucleated RBC (0.00-0.01) x10^3u/L Lymphocytes % (24.0-44.0) % Monocytes % (0.0-12.0) % Eosinophils % (0.00-5.0) % Basophils % (0.0-0.4) % Absolute Granulocytes (1.4-6.9) x10^3/uL Basophils # (0-0.4) x10^3/uL Sodium (137-145) mmol/L Potassium (3.5-5.1) mmol/L Chloride (98-107) mmol/L Carbon Dioxide (22-30) mmol/L Anion Gap (5-15) MEQ/L BUN (9-20) mg/dL Creatinine (0.66-1.25) mg/dL Estimated GFR ML/MIN Glucose (74-106) mg/dL POC Glucometer 222 H 283 H 231 H (74 to 106) mg/dL Calcium (8.4-10.2) mg/dL Total Bilirubin (0.2-1.3) mg/dL AST (17-59) U/L ALT (0-50) U/L Alkaline Phosphatase (38-126) U/L Serum Total Protein (6.3-8.2) g/dL Albumin (3.5-5.0) g/dL Radiology Exams: Radiology Procedures Category Date Time Status CHEST 1 VIEW (PORTABLE) Routine Exams 10/15/22 08:00 Completed RIBS UNILATERAL Routine Exams 10/15/22 11:25 Completed Multi-Disciplinary Progress Notes: Multi-Disciplinary Progress Notes 10/15/22 16:01 OT Plan of Care Note by Jinny Luong OT Eval OT Inpatient Eval and POC Start: 10/15/22 13:25 Freq: ONCE Status: Complete Protocol: Created 10/15/22 13:26 AW (Rec: 10/15/22 13:26 AW [id number]) Document 10/15/22 15:50 KA (Rec: 10/15/22 15:59 KA [id number]) OT Evaluation Subjective RAKAN REPORTS THAT HE HAS HAD "A TOUGH GO" THE PAST SEVERAL WEEKS, RECENTLY IN [facility] S/P FALL WITH PNEUMONIA. HE REPORTS INCREASED FATIGUE TODAY DUE TO NOT SLEEPING WELL LAST NIGHT AND SITTING UP IN THE CHAIR. Pertinent Past Medical History DM2, HTN, HLD, CAD, S/P CABG, CVA, CROHN'S DISEASE, RIGHT SIDE BROKEN RIBS, HIP FRACTURE Prior Level of Function LIVED AT DAUGHTER'S HOME WITH 24/7 CARE (PRIVATE CAREGIVERS DURING THE DAY) REQUIRING INTERMITTENT MIN ASSIST WITH ADLS, SBA DURING FUNCTIONAL TRANSFERS, AND FREQUENT FALLS AND INFECTIONS. Equipment at Home Prior to Admission Walker,Commode,Shower Chair Home Setup [id number]-[id number] Date 10/15/22 Feeding Impaired Comment SET UP ASSIST DUE TO UE FATIGUE AND ATAXIC MOVEMENT WITH LEFT HAND. Grooming Impaired Comment MIN ASSIST Bathing Impaired Comment MAX ASSIST Dressing Impaired Comment UB: MIN ASSIST LB: MAX ASSIST Toileting Impaired Comment PARMAR CATHETER PRESENT MIN ASSIST IADLS (If indicated) Homemaking,etc Impaired Bed Mobility Impaired Comment SUPINE<>SIT: SET UP ASSIST SIT<>SUPINE: MIN ASSIST Toilet Transfers Impaired Comment MIN ASSIST Shower Transfers Impaired Functional Transfers Impaired Comment MIN ASSIST FOR SIT<>STAND Range of Motion WFL Comment WFL COMPARED TO BASELINE BUT SIGNIFICANT WEAKNESS PRESENT Coordination MIN ASSIST DUE TO INCREASED ATAXIC MOVEMENT WITH LEFT HAND DURING ADLS. Functional Strength 4-/5 FOR BUE STRENGTH Functional Endurance POOR (-) LEFT LATERAL LEAN AND SIGNIFICANT KYPHOTIC POSTURE WHILE SITTING ON EDGE OF BED FOR APPROXIMATELY 5 MINUTES. Cognition ALERT AND ORIENTED TO NAME, DATE, AND LOCATION; DELAYED COGNITIVIE PROCESSING REQUIRING MORE VERBAL CUES FOR CHOICES. Pain 5/10 IN RIGHT MIDDLE RIB REGION Objective Data/Standardized Assessment(s 0/6 ON SAX[place] INDEX OF ) INDEPENDENCE (PATIENT IS VERY DEPENDENT FOR ADLS). OT Plan Of Care Date of Evaluation 10/15/22 Treatment Diagnosis WEAKNESS Precaution/Orders as written EVAL AND TREAT Teaching Recipient Patient Patient is Aware of Diagnosis and Yes Prognosis Patient is receptive to Plan of Care and Yes contributory towards OT goals Functional Problem List RAKAN DEMONSTRATES SIGNIFICANT WEAKNESS, DECREASED ACTIVITY TOLERANCE, LEFT LATERAL LEAN WHILE SITTING, POOR ACTIVITY TOLEARNCE, AND INCREASED ATAXIC MOVEMENT IN LEFT UE DURING ADLS LIMITING INDEPENDENCE FOR SAFE RETURN HOME. Therapuetic Interventions ADLS, THERAPEUTIC ACTIVITY, THERAPEUTIC EXERCISE, TRANSFERS Functional Goals of Treatment 1. PATIENT WILL COMPLETE FUNCTIONAL TRANSFERS WITH CGA. 2. PATIENT WILL ENGAGE IN LIGHT ADLS IN SEATED POSITION WITH APPROPRIATE POSTURE AND SET UP ASSIST. Frequency/Duration 5X/WEEK Rehabilitation Potential for Goals/ Good Barriers to Progress Discharge Recommendations/Plan OT RECOMMENDS FURTHER SKILLED THERAPY PRIOR TO RETURN HOME, SUCH SNF DUE TO CURRENT LIMITATIONS. Initialized on 10/15/22 16:01 - END OF NOTE
[2022-10-15] MEDS: ZOCOR 20MG PO SCH (22:01)
[2022-10-16] MEDS: PIPERACILLIN/TAZOBACTAM 3.375 GM in Sodium Chloride 100ML MINI-BAG PLUS 100 ML IV SCH ×4 (00:40→17:36)
[2022-10-16] MEDS: APRESOLINE 20 MG/ML INJ IV PRN (04:48)
[2022-10-16 05:04] LABS: Absolute Neutrophil Ct (ANC) 5.85 x10^3/uL (1.4-6.9); Basophil (Absolute #) 0.15 x10^3/uL (0-0.4); Eosinophil % 2.9 % (0.00-5.0); Eosinophil (Absolute #) 0.22 x10^3/uL (0-0.5); Hemoglobin 10.1 g/dL (12.5-18.0); IMMATURE GRAN # 0.11 x10^3u/L (0.00-0.03); IMMATURE GRAN % 1.5 % (0.00-0.4); Lymphocyte (Absolute #) 0.77 x10^3/uL (1.0-4.6); Lymphocytes % 10.2 % (24.0-44.0); Mean Cell Volume 93.9 fL (78-100); Mean Corpuscular Hemoglobin 30.6 pg (26-32); Mean Corpuscular Hgb Concent. 32.6 g/dL (32-36); Mean Platelet Volume 10.8 fL (7.5-11.0); Monocyte (Absolute #) 0.46 x10^3/uL (0.0-1.3); Monocytes % 6.1 % (0.0-12.0); Neutrophil % 77.3 % (36.0-66.0); Platelet Count 339 x10^3/uL (150-450); Red Cell Distribution Width 14.1 % (11.5-14.0); White Blood Count 7.6 x10^3/uL (4.0-10.5)
[2022-10-16 05:28] LABS: ALBUMIN 2.8 g/dL (3.5-5.0); ALKALINE PHOSPHATASE 690 U/L (38-126); ANION GAP 8.4 MEQ/L (5-15); BLOOD UREA NITROGEN 10 mg/dL (9-20); CHLORIDE 95 mmol/L (98-107); Calcium 8.6 mg/dL (8.4-10.2); Carbon Dioxide 33 mmol/L (22-30); Creatinine 1 0.56 mg/dL (0.66-1.25); EST GLOMERULAR FILTRATION RATE > 60.0 ML/MIN; Glucose 279 mg/dL (74-106); Potassium 3.9 mmol/L (3.5-5.1); SGOT/AST 36 U/L (17-59); SGPT/ALT 80 U/L (0-50); SODIUM 132 mmol/L (137-145); Total Protein 5.9 g/dL (6.3-8.2)
[2022-10-16] MEDS: PERCOCET TABLET 5/325MG PO PRN ×3 (07:57→20:00)
[2022-10-16] MEDS: PROAMATINE PO SCH ×3 (08:03→17:36)
[2022-10-16] MEDS: Zithromax 500 MG/ 250 ML NaCl Premix 500 MG/250 ML IVPB IV SCH (10:55)
[2022-10-16] MEDS: Flomax 0.4 MG PO SCH (10:55)
[2022-10-16] MEDS: Protonix 40MG Tablet PO SCH (10:55)
[2022-10-16] MEDS: HUMALOG SQ PRN ×3 (12:24→22:46)
[2022-10-16] MEDS: FEOSOL 325 MG PO SCH (14:09)
[2022-10-16] MEDS: ZOCOR 20MG PO SCH (20:00)
[2022-10-17] MEDS: PIPERACILLIN/TAZOBACTAM 3.375 GM in Sodium Chloride 100ML MINI-BAG PLUS 100 ML IV SCH ×5 (00:29→23:37)
[2022-10-17] MEDS: APRESOLINE 20 MG/ML INJ IV PRN ×2 (04:33→16:33)
[2022-10-17] MEDS: PERCOCET TABLET 5/325MG PO PRN (04:37)
[2022-10-17] MEDS: HUMALOG SQ PRN ×3 (08:06→21:00)
[2022-10-17] MEDS: PROAMATINE PO SCH ×3 (08:06→17:17)
[2022-10-17] MEDS ORDERED: OXYCODONE-ACETAMINOPHEN 10-325 PO PRN (09:02)
[2022-10-17] MEDS: FEOSOL 325 MG PO SCH (09:41)
[2022-10-17] MEDS: Flomax 0.4 MG PO SCH (09:41)
[2022-10-17] MEDS: Zithromax 500 MG/ 250 ML NaCl Premix 500 MG/250 ML IVPB IV SCH (09:41)
[2022-10-17] MEDS: Protonix 40MG Tablet PO SCH (09:41)
[2022-10-17] MEDS: Lantus Insulin SQ SCH ×2 (09:48→21:00)
[2022-10-17 13:12] LABS: Hematocrit 35.4 % (42-50); Hemoglobin 11.1 g/dL (12.5-18.0); Mean Cell Volume 95.7 fL (78-100); Mean Corpuscular Hgb Concent. 31.4 g/dL (32-36); Mean Platelet Volume 10.7 fL (7.5-11.0); Platelet Count 371 x10^3/uL (150-450); Red Cell Distribution Width 14.4 % (11.5-14.0); White Blood Count 7.9 x10^3/uL (4.0-10.5)
[2022-10-17 13:31] LABS: ALBUMIN 3.1 g/dL (3.5-5.0); ALKALINE PHOSPHATASE 654 U/L (38-126); ANION GAP 13.2 MEQ/L (5-15); BLOOD UREA NITROGEN 10 mg/dL (9-20); CHLORIDE 96 mmol/L (98-107); Calcium 8.5 mg/dL (8.4-10.2); Carbon Dioxide 28 mmol/L (22-30); Creatinine 1 0.65 mg/dL (0.66-1.25); EST GLOMERULAR FILTRATION RATE > 60.0 ML/MIN; Glucose 282 mg/dL (74-106); Potassium 3.8 mmol/L (3.5-5.1); SGOT/AST 29 U/L (17-59); SGPT/ALT 63 U/L (0-50); SODIUM 134 mmol/L (137-145); Total Protein 6.3 g/dL (6.3-8.2)
[2022-10-17 14:51] LABS: A-aADO2 23; ABG POTASSIUM 3.9 (3.5-5.1); ARTERIAL BLOOD GAS BASE EXCESS 7.7 (-2.0-2.0); ARTERIAL BLOOD GAS FIO2 21 %; ARTERIAL BLOOD GAS PCO2 43 mmHg (35-45); ARTERIAL BLOOD GAS PO2 73 mmHg (75-100); ARTERIAL BLOOD GAS pH 7.48 (7.35-7.45); CARBOXYHEMOGLOBIN 0.8 % THgb (0.0-6.9); HGB O2 SAT 95.1 g/dF (94-100); Methhemoglobin 0.1 % (1.4-1.5); paO2 pAO1 0.76
[2022-10-17 14:52] LABS: ABG SITE RIGHT BRACHIAL; ALLEN TEST OK? YES
[2022-10-17 15:46] LABS: Appearance Clear (Clear); Bacteria None Seen /HPF (None Seen); Bilirubin Negative (Negative); Blood Negative (Negative); Epithelial Cells None Seen /HPF (None Seen); Glucose, Urine 500 mg/dL (Negative); Hyaline Casts NONE SEEN /LPF (0-2); Ketones 40 (Negative); Leukocyte Esterase Negative (Negative); Nitrite Negative (Negative); Ph 7.5 (4.6-8.0); Protein,Urine Dip Trace (Negative); RBC 0-2 /HPF (0-5); Specific Gravity 1.015 (1.005-1.030); WBC 0-2 /HPF (0-5)
[2022-10-17 15:48] LABS: ADD URINE CULTURE? NO (NO)
--- NOTE | 2022-10-17 17:13 | XRAY ---
Indication: Increased lethargy. Multiple contiguous axial images obtained through the head without contrast. Comparison: October 12, 2022 Stable age-appropriate global atrophy, moderate periventricular degenerative micro-ischemia, and remote lacunar infarcts left basal ganglia/right basilar ganglia/right mid mares radiata. Again no acute intracranial hemorrhage, abnormal extra-axial fluid collection, or mass effect. Fourth ventricle is midline without hydrocephalus. Bony calvarium intact. Again mild mucosal thickening left maxillary sinus. Mastoid air cells are clear. Impression: No change compared to CT 5 days ago. Continued nonacute senile brain with multifocal remote lacunar infarcts and incidental paranasal sinus disease. Consider MRI if there remains further clinical concern.
[2022-10-17] MEDS: ZOCOR 20MG PO SCH (21:01)
[2022-10-17] MEDS ORDERED: Docusate Sodium 100 MG PO SCH (22:00)
[2022-10-18 04:43] VITALS: O2SAT 95
[2022-10-18] MEDS: PIPERACILLIN/TAZOBACTAM 3.375 GM in Sodium Chloride 100ML MINI-BAG PLUS 100 ML IV SCH (05:00)
[2022-10-18 06:49] VITALS: BP 170/76
[2022-10-18 07:39] VITALS: PULSE 76
--- NOTE | 2022-10-18 08:33 | XRAY ---
Indication: Follow-up rib fracture. Comparison: October 15, 2022 Portable chest again demonstrates COPD. Again minimal bilateral infrahilar interstitial alveolar opacities less than before. Remaining heart and lungs unremarkable again with CABG. Bony thorax intact again with osteopenia and mild degenerative changes. No new/acute findings.
[2022-10-18] MEDS: Lantus Insulin SQ SCH (10:03)
[2022-10-18] MEDS: FEOSOL 325 MG PO SCH (10:04)
[2022-10-18] MEDS: Flomax 0.4 MG PO SCH (10:04)
[2022-10-18] MEDS: Protonix 40MG Tablet PO SCH (10:04)
[2022-10-18] MEDS: Zithromax 500 MG/ 250 ML NaCl Premix 500 MG/250 ML IVPB IV SCH (10:05)
[2022-10-18] MEDS: PROAMATINE PO SCH (10:17)
--- NOTE | 2022-10-18 14:16 | PCM.DS ---
Discharge Summary Date of Admission: 10/12/22 20:09 Date of Discharge: 10/18/2022 Admitting Physician: YOUNG OSCAR MD Consults: Consults on Case 10/12/22 20:14 Consult Surgery ROUTINE Primary Care Provider: JOSE ALBERTO GRAJEDA Allergies Allergies No Known Drug Allergies Allergy (Verified 10/12/22 15:19) Hospital Summary - Hospital Course Hospital Course: Mr. Kruger is a 67 year-old gentleman with DM2, HTN, HLD, CAD s/p CAGG, prior CVA, Crohn's Disease, and on eliquis who presented on 10/17 with weakness and lethargy. Upon arrival to [facility] laboratory data revealed anemia, hyponatremia, and elevated liver enzymes, while imaging revealed air space disease (viral panel negative) in the lungs an possible acute cholecystitis - RUQ US did not confirm acute cholecystitis. He was started in intravenous zosyn and azithromycin, and during the course of his stay he started feel better while laboratory data improved. He will be discharged to follow-up with his primary care doctor. - Vitals & Intake/Output Vital Signs: Vital Signs Temperature 98.2 F 10/18/22 04:00 Pulse Rate 76 10/18/22 07:36 Respiratory Rate 16 10/18/22 07:36 Blood Pressure 170/76 10/18/22 06:48 O2 Sat by Pulse Oximetry 95 10/18/22 07:36 Intake & Output: Intake & Output 10/16/22 10/17/22 10/18/22 10/19/22 11:59 11:59 11:59 11:59 Intake Total 940 1200 1572 Output Total 450 2450 1300 Balance 490 -1250 272 Weight 52.9 kg 55.7 kg - Lab Result Diagrams: 10/17/22 13:14 10/17/22 13:14 Lab Results-Last 24 Hrs: Lab Results-Last 24 Hours 10/17/22 10/17/22 10/17/22 Range/Units 14:48 15:37 16:31 Puncture Site RIGHT BRACHIAL pCO2 43 (35-45) mmHg pO2 73 L (75-100) mmHg Base Excess 7.7 H (-2.0-2.0) O2 Saturation 95.1 (94-100) g/dF ABG pH 7.48 H (7.35-7.45) ABG HCO3 32.0 H* (22-28) ABG O2 Sat (Measured) 96.0 (95-100) % Andrew Test YES A-a Gradient 23 a/A Ratio 0.76 Hemoglobin 11.0 Carboxyhemoglobin 0.8 (0.0-6.9) % THgb Methemoglobin 0.1 L (1.4-1.5) % Potassium 3.9 (3.5-5.1) Temperature 37.0 C POC O2 Flow Rate 21 % POC Glucometer 278 H (74 to 106) mg/dL Urine Color Yellow (Yellow) Urine Appearance Clear (Clear) Urine pH 7.5 (4.6-8.0) Ur Specific [place] 1.015 (1.005-1.030) Urine Protein Trace A (Negative) Urine Glucose (UA) 500 A (Negative) mg/dL Urine Ketones 40 A (Negative) Urine Blood Negative (Negative) Urine Nitrite Negative (Negative) Urine Bilirubin Negative (Negative) Urine Urobilinogen 1.0 A (0.2) mg/dL Ur Leukocyte Esterase Negative (Negative) U Hyaline Cast (Auto) NONE SEEN (0-2) /LPF Urine Microscopic RBC 0-2 (0-5) /HPF Urine Microscopic WBC 0-2 (0-5) /HPF Ur Epithelial Cells None Seen (None Seen) /HPF Urine Bacteria None Seen (None Seen) /HPF Urine Culture Reflexed NO (NO) 10/17/22 10/18/22 Range/Units 20:36 07:19 Puncture Site pCO2 (35-45) mmHg pO2 (75-100) mmHg Base Excess (-2.0-2.0) O2 Saturation (94-100) g/dF ABG pH (7.35-7.45) ABG HCO3 (22-28) ABG O2 Sat (Measured) (95-100) % Andrew Test A-a Gradient a/A Ratio Hemoglobin Carboxyhemoglobin (0.0-6.9) % THgb Methemoglobin (1.4-1.5) % Potassium (3.5-5.1) Temperature C POC O2 Flow Rate % POC Glucometer 375 H 221 H (74 to 106) mg/dL Urine Color (Yellow) Urine Appearance (Clear) Urine pH (4.6-8.0) Ur Specific [place] (1.005-1.030) Urine Protein (Negative) Urine Glucose (UA) (Negative) mg/dL Urine Ketones (Negative) Urine Blood (Negative) Urine Nitrite (Negative) Urine Bilirubin (Negative) Urine Urobilinogen (0.2) mg/dL Ur Leukocyte Esterase (Negative) U Hyaline Cast (Auto) (0-2) /LPF Urine Microscopic RBC (0-5) /HPF Urine Microscopic WBC (0-5) /HPF Ur Epithelial Cells (None Seen) /HPF Urine Bacteria (None Seen) /HPF Urine Culture Reflexed (NO) Micro Results-Entire Visit: Microbiology 10/14/22 11:10 Urine Culture - Final Urine, Indwelling Catheter NO GROWTH Accuchecks Date 10/18/22 Date 10/17/22 Time 07:22 Time 17:04 - Radiology Exams Ordered Rad Exams-Entire Visit: Radiology Procedures Category Date Time Status CHEST 1 VIEW (PORTABLE) Routine Exams 10/18/22 04:00 Completed HEAD WITHOUT CONTRAST [CT] Stat Exams 10/17/22 16:57 Completed - Procedures and Test Procedures and Tests throughout Hospitalization: Therapy Orders & Screens 10/12/22 20:14 EKG REPEAT IN AM Comment: 10/12/22 21:48 Respiratory Therapy Assessment DAILY Comment: 10/14/22 19:23 Incentive Spirometry TID Comment: Diagnosis: pna 10/15/22 13:25 PT Eval & Treat (MD Order) ONCE Reason for Eval:: weakness Diagnosis: pna OT Eval and Treat (MD Order) ONCE Comment: Physician Instructions: Reason For Exam: weakness 10/15/22 16:37 ST Eval & Treat (MD Order) .as ordered Comment: Physician Instructions: Reason For Exam: Evaluate: Yes Treat: Yes Reason for Eval: possible aspiration Diagnosis: pna Discharge Exam General Appearance: no apparent distress Neurologic Exam: alert, oriented x 3 Eye Exam: PERRL, EOMI Ears, Nose, Throat Exam: moist mucous membranes Neck Exam: normal inspection Respiratory Exam: normal breath sounds Cardiovascular Exam: regular rate/rhythm Gastrointestinal/Abdomen Exam: soft, normal bowel sounds Male Genitalia Exam: deferred Rectal Exam: deferred Back Exam: normal inspection Extremity Exam: normal inspection Skin Exam: normal color Final Diagnosis/Problem List - Final Discharge Diagnosis/Problem (1) Cholecystitis Current Visit: Yes Status: Acute Code(s): K81.9 - CHOLECYSTITIS, UNSPECIFIED - Discharge Disposition: Skilled Care @ [facility] Condition: Fair Prescriptions: Continue Budesonide [Budesonide Dr] 3 mg PO DAILY PANTOPRAZOLE 40 mg Tablet [Protonix 40MG Tablet] 40 mg PO DAILY Insulin Detemir [Levemir] 9 units SQ HS Albuterol Sulfate [Albuterol Sulfate Hfa] 2 puff IH QID Insulin Aspart (Niacinamide) [Fiasp 100 Unit/ml Vial] 8 unit SQ BREAKFAST Dronedarone Hydrochloride 400* [Multaq 400 MG] 200 mg PO BID Insulin Aspart (Niacinamide) [Fiasp 100 Unit/ml Vial] 8 units SQ LUNCH Insulin Aspart (Niacinamide) [Fiasp 100 Unit/ml Vial] 8 units SQ EVENING MEAL Tamsulosin HCl 0.4 mg [Flomax 0.4 MG] 0.4 mg PO DAILY Atorvastatin Calcium 40 mg PO QHS Cyanocobalamin (Vitamin B-12) [Vitamin B-12] 1,000 mcg PO DAILY Apixaban [Eliquis] 1 tab PO BID Psyllium Packet [Metamucil PACKET] 1 packet PO DAILY Midodrine HCl [Proamatine] 1 tab PO TID [place]-3 Fatty Acids [[place]-3] 1 tab PO DAILY Cholecalciferol (Vitamin D3) [Vitamin D3] 1 tab PO WEEKLY Alpha Lipoic Acid 300 mg PO BID Additional Instructions: THE [facility] ORDERS: SEE ATTACHED MED LIST FOR CURRENT MED ORDERS PT/OT/ST EVAL AND TREAT REGULAR DIET ACCU CHECK AC/HS Follow up with: JOSE ALBERTO GRAJEDA [Primary Care Provider] - Forms: Transfer Record [employer]
== END 2022-10-18 11:20 | DRG 445 ==
LOC: ED 14:56 → MED SURG 20:09
PROVIDERS: ADMIT Internal Medicine Critical Care Medicine; ATTEND Family Medicine
DX: K81.9 Cholecystitis, unspecified (principal); E87.1 Hypo-osmolality and hyponatremia; K50.90 Crohn's disease, unspecified, without complications; E11.9 Type 2 diabetes mellitus without complications; I10 Essential (primary) hypertension; E78.5 Hyperlipidemia, unspecified; I25.10 Atherosclerotic heart disease of native coronary artery without angina pectoris; S22.39XS Fracture of one rib, unspecified side, sequela; W19.XXXD Unspecified fall, subsequent encounter; R74.8 Abnormal levels of other serum enzymes; Z95.1 Presence of aortocoronary bypass graft; Z79.01 Long term (current) use of anticoagulants; Z79.899 Other long term (current) drug therapy; Z86.73 Personal history of transient ischemic attack (TIA), and cerebral infarction without residual deficits; Z87.891 Personal history of nicotine dependence
CPT/HCPCS: 0241U; 36000; 36415; 36600; 70450; 71045; 71100; 74176; 76705; 80053; 80074; 81001; 82140; 82150; 82375; 82803; 82947; 83605; 83690; 83880; 84484; 85025; 85027; 86308; 87086; 93005; 94760; 96360; 96361; 96365; 97110; 97161; 97165; 97530; 99285; Q3014; J0360; J0456; J1817; J1956; A9270-GY

== ENCOUNTER 2022-12-01 16:10 | Emergency (ER) | payer MEDICARE ==
--- NOTE | 2022-12-01 16:23 | ERPHSYRPT ---
- History of Present Illness Time Seen by Provider: 12/01/22 16:23 Source: patient, family (Independent history obtained from the family, old medical records and paramedics), EMS, old records Exam Limitations: no limitations Physician History: This is a 67-year-old white male patient of Dr. Cameron who was brought into the emergency department via ambulance/paramedics. I obtained independent information from the patient, the patient's daughter, old inpatient medical records and paramedics. The patient, per daughter report, had an excellent day yesterday having gone to physical therapy and was very active. Today, she states that he has been more fatigued and weak today. When you asked the patient the patient states that he feels pretty good. He denies chest pain. He denies shortness of breath. He has no abdominal pain. Patient has a history of recurrent pneumonias and recurrent urinary tract infections. He has known rib fractures from relatively recent fall. He has a history of type 2 diabetes, hypertension, coronary artery disease/CABG on Eliquis, CVA/TIAs, Crohn's disease, peripheral neuropathy and chronic orthostatic hypotension on midodrine. Patient was admitted here into [facility] on 10/12/2022 because of same complaint and symptoms. He was discharged from the hospital on 10/18/2022. I reviewed those records. Timing/Duration: today Severity: mild Associated Symptoms: cough, weakness (Per patient daughter but patient does not complain of weakness per his report), No nausea, No vomiting, No abdominal pain, No shortness of breath, No chest pain, No syncope Allergies/Adverse Reactions: No Known Drug Allergies Allergy (Verified 12/01/22 16:17) Home Medications: Albuterol Sulfate [Albuterol Sulfate Hfa] 2 puff IH QID 10/24/20 [History] Budesonide [Budesonide Dr] 3 mg PO DAILY 10/24/20 [History] Insulin Detemir [Levemir] 9 units SQ DAILY 10/24/20 [History] Dronedarone Hydrochloride 400* [Multaq 400 MG] 200 mg PO BID 09/16/21 [History] Insulin Aspart (Niacinamide) [Fiasp 100 Unit/ml Vial] 8 unit SQ BREAKFAST 09/16/21 [History] Insulin Aspart (Niacinamide) [Fiasp 100 Unit/ml Vial] 8 units SQ EVENING MEAL 09/16/21 [History] Insulin Aspart (Niacinamide) [Fiasp 100 Unit/ml Vial] 8 units SQ LUNCH 09/16/21 [History] Atorvastatin Calcium 40 mg PO QHS 01/01/22 [History] Tamsulosin HCl 0.4 mg [Flomax 0.4 MG] 2 cap PO HS 01/01/22 [History] Cyanocobalamin (Vitamin B-12) [Vitamin B-12] 1,000 mcg PO DAILY 01/02/22 [History] Alpha Lipoic Acid 300 mg PO DAILY 10/12/22 [History] Apixaban [Eliquis] 1 tab PO BID 10/12/22 [History] Cholecalciferol (Vitamin D3) [Vitamin D3] 1 tab PO WEEKLY 10/12/22 [History] Midodrine HCl [Proamatine] 1 tab PO TID 10/12/22 [History] [place]-3 Fatty Acids [[place]-3] 1 tab PO DAILY 10/12/22 [History] Psyllium Packet [Metamucil PACKET] 1 packet PO DAILY 10/12/22 [History] Aspirin EC 81 mg [Ecotrin 81 mg] 1 tab PO DAILY 12/01/22 [History] Ferrous Sulfate 325 mg [Feosol 325 mg] 1 tab PO DAILY 12/01/22 [History] Magnesium Oxide 400 mg [Mag-Ox 400] 1 tab PO DAILY 12/01/22 [History] Omeprazole 1 cap PO DAILY 12/01/22 [History] Hx Tetanus, Diphtheria Vaccination/Date Given: Yes Hx Influenza Vaccination/Date Given: Yes Hx Pneumococcal Vaccination/Date Given: Yes Travel Risk - International Travel Have you traveled outside of the country in past 3 weeks: No - Coronavirus Screening Are you exhibiting any of the following symptoms?: No Close contact with a COVID-19 positive Pt in past 14-21 Days: No - Vaccine Status Have you recieved a Covid-19 vaccination: Yes Set Up Person: [employer] - Vaccination Dates Date of 2cond Vaccination (if applicable): 2019 - Review of Systems Constitutional: Weakness Eyes: No Symptoms Ears, Nose, & Throat: No Symptoms Respiratory: Cough, No Dyspnea Cardiac: No Symptoms, No Chest Pain Abdominal/Gastrointestinal: No Symptoms Genitourinary Symptoms: No Symptoms Musculoskeletal: No Symptoms Skin: No Symptoms Neurological: No Symptoms Psychological: No Symptoms Endocrine: No Symptoms Hematologic/Lymphatic: No Symptoms Immunological/Allergic: No Symptoms All Other Systems: Reviewed and Negative - Past Medical History Pertinent Past Medical History: Yes Neurological History: Stroke ENT History: Other Cardiac History: Coronary Artery Disease, Myocardial Infarction ([place]) Respiratory History: No Pertinent History Endocrine Medical History: Diabetes Type II Musculoskeletal History: Arthritis GI Medical History: Crohns Disease History: No Pertinent History Psycho-Social History: No Pertinent History Male Reproductive Disorders: Prostate Problems Other Medical History: PMHX: ANEMIA, ATAXIA, A-FIB, ATROPHY OF PANCREAS, CAD, CEREBELLAR STROKE, CEREBRAL INFARCT, CHRONIC GERD, 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, DM, CHROHN'S DISEASE, HX OF FALLS, HTN, LUNG NODULES, MALNOURISHED, ORTHOSTATIC HYPOTENSION, SENSORY NEUROPATHY, TIA, VASCULAR INSUFFICIENCY OF EXTREMITIY,. SX PMHX: L HIP NAILING 03/07/2022, CABG, - Past Surgical History Past Surgical History: Yes Neuro Surgical History: No Pertinent History Cardiac: CABG, Cardiac Catheterization, Cardiac Stent, Other Respiratory: No Pertinent History Gastrointestinal: Appendectomy, Other Genitourinary: No Pertinent History Musculoskeletal: Orthopedic Surgery Male Surgical History: No Pertinent History Other Surgical History: 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, intestinal resection, triple bypass - Social History Smoking Status: Former smoker How long have you smoked: years Exposure to second hand smoke: Yes Drug Use: none Patient Lives Alone: No (daughter) Significant Family History: no pertinent family hx - Nursing Vital Signs Nursing Vital Signs: Initial Vital Signs Temperature 97.5 F 12/01/22 16:18 Pulse Rate 63 12/01/22 16:18 Respiratory Rate 21 12/01/22 16:18 Blood Pressure 123/61 12/01/22 16:18 O2 Sat by Pulse Oximetry 98 12/01/22 16:18 Pain Scale Pain Intensity 0 - Physical Exam General Appearance: no apparent distress, alert, thin Eye Exam: PERRL/EOMI, eyes nml inspection Ears, Nose, Throat Exam: normal ENT inspection, moist mucous membranes Neck Exam: normal inspection, non-tender, supple, full range of motion Respiratory Exam: normal breath sounds, lungs clear, airway intact, No chest tenderness, No respiratory distress Cardiovascular Exam: regular rate/rhythm, normal heart sounds, normal peripheral pulses Gastrointestinal/Abdomen Exam: soft, normal bowel sounds, No tenderness Rectal Exam: not done Extremity Exam: normal inspection, normal range of motion, pelvis stable Neurologic Exam: alert, oriented x 3, cooperative, grinder gear II-XII nml as tested, normal mood/affect, sensation nml Skin Exam: normal color, warm, dry Lymphatic Exam: No adenopathy SpO2 Interpretation: normal O2 Delivery: Room Air - Course Nursing assessment & vital signs reviewed: Yes Ordered Tests: Active Orders 24 hr Category Date Time Status EKG-ER Only STAT Care 12/01/22 16:46 Active IV Insertion STAT Care 12/01/22 16:45 Active cath [Cath for Specimen-Straight] STAT Care 12/01/22 16:48 Active CHEST 1 VIEW (PORTABLE) Stat Exams 12/01/22 16:46 Taken CBC W DIFF Stat Lab 12/01/22 16:22 Completed CMP Stat Lab 12/01/22 16:22 Completed CULTURE,URINE Stat Lab 12/01/22 16:49 Received TROPONIN Q4H Lab 12/01/22 16:22 Completed TROPONIN Q4H Lab 12/01/22 20:45 Ordered TROPONIN Q4H Lab 12/02/22 00:45 Ordered UA W/RFX UR CULTURE Stat Lab 12/01/22 16:49 Completed Medication Summary Generic Name Dose Route Start Last Admin Trade Name Freq PRN Reason Stop Dose Admin Sodium Chloride 1,000 mls @ 500 mls/hr 12/01/22 16:45 12/01/22 16:59 Sodium Chloride 0.9% 1000 Ml IV 12/31/22 16:44 500 mls/hr .Q2H ELIZABETH Administration Lab/Rad Data: Laboratory Result Diagrams 12/01/22 16:22 12/01/22 16:22 Laboratory Results 12/01/22 12/01/22 12/01/22 Range/Units 16:49 16:22 16:22 WBC 8.7 (4.0-10.5) x10^3/uL RBC 3.30 L (4.1-5.6) x10^6/uL Hgb 10.0 L (12.5-18.0) g/dL Hct 32.4 L (42-50) % MCV 98.2 (78-100) fL MCH 30.3 (26-32) pg MCHC 30.9 L (32-36) g/dL RDW 14.0 (11.5-14.0) % Plt Count 137 L (150-450) x10^3/uL MPV 13.0 H (7.5-11.0) fL Gran % 82.0 H (36.0-66.0) % Immature Gran % (Auto) 0.5 H (0.00-0.4) % Nucleat RBC Rel Count 0.0 (0.00-0.1) % Eos # (Auto) 0.22 (0-0.5) x10^3/uL Immature Gran # (Auto) 0.04 H (0.00-0.03) x10^3u/L Absolute Lymphs (auto) 0.68 L (1.0-4.6) x10^3/uL Absolute Monos (auto) 0.56 (0.0-1.3) x10^3/uL Absolute Nucleated RBC 0.00 (0.00-0.01) x10^3u/L Lymphocytes % 7.8 L (24.0-44.0) % Monocytes % 6.5 (0.0-12.0) % Eosinophils % 2.5 (0.00-5.0) % Basophils % 0.7 (0.0-0.4) % Absolute Granulocytes 7.12 H (1.4-6.9) x10^3/uL Basophils # 0.06 (0-0.4) x10^3/uL Sodium 136 L (137-145) mmol/L Potassium 3.7 (3.5-5.1) mmol/L Chloride 103 (98-107) mmol/L Carbon Dioxide 29 (22-30) mmol/L Anion Gap 8.6 (5-15) MEQ/L BUN 24 H (9-20) mg/dL Creatinine 0.89 (0.66-1.25) mg/dL Estimated GFR > 60.0 ML/MIN Glucose 84 (74-106) mg/dL Calcium 8.3 L (8.4-10.2) mg/dL Total Bilirubin 0.50 (0.2-1.3) mg/dL AST 36 (17-59) U/L ALT 41 (0-50) U/L Alkaline Phosphatase 117 (38-126) U/L Troponin I < 0.012 (0.000-0.034) ng/mL Serum Total Protein 5.6 L (6.3-8.2) g/dL Albumin 3.0 L (3.5-5.0) g/dL Urine Color Yellow (Yellow) Urine Appearance Clear (Clear) Urine pH 5.5 (4.6-8.0) Ur Specific [place] 1.015 (1.005-1.030) Urine Protein Negative (Negative) Urine Glucose (UA) 250 A (Negative) mg/dL Urine Ketones Negative (Negative) Urine Blood NHT (Negative) Urine Nitrite Negative (Negative) Urine Bilirubin Negative (Negative) Urine Urobilinogen 1.0 A (0.2) mg/dL Ur Leukocyte Esterase Negative (Negative) U Hyaline Cast (Auto) NONE SEEN (0-2) /LPF Urine Microscopic RBC 6-10 A (0-5) /HPF Urine Microscopic WBC 0-2 (0-5) /HPF Ur Epithelial Cells None Seen (None Seen) /HPF Urine Bacteria None Seen (None Seen) /HPF Urine Culture Reflexed NO (NO) - Progress Progress: improved, re-examined Progress Note: 12/01/22 18:58 This patient's medical issue is 1 of moderate complexity. Level complexity in the work-up performed is based on review of the patient's past medical history, review of the patient's medication list, review of the patient's drug allergy list, history of present illness, physical findings on examination. The work-up in this patient includes placement of an intravenous line, infusion of 1 L normal saline solution, troponin level, urinalysis, CBC and CMP. We also performed a chest x-ray. I reviewed the chest x-ray and interpreted myself. There is no evidence of any acute cardiopulmonary process. There is no significant difference on today's chest x-ray when compared to that chest x-ray that was performed on 10/18/2022. The patient does not have an acute, emergent medical issue today. Admittedly, the patient's daughter, who cares for him chronically, feels he looks a lot better after infusion of the fluid. Patient states that he feels much better after the infusion of normal saline solution. We will discharge him to home with instructions for him to follow-up with his primary care provider on 12/03/2022 for further evaluation management. Counseled pt/family regarding: lab results, diagnosis, need for follow-up, rad results Medical Desision Making - Independent Historian Additional History obtained from: Child - Diagnostic Testing Diagnostic test were ordered, analyzed, and reviewed by me: Yes - Risk of complications Low Risk: Low risk of morbidity from additional dx testing or treatment - Departure Departure Disposition: Home Clinical Impression: Weakness Condition: Stable Critical Care Time: No Referrals: JOSE ALBERTO CAMERON [Primary Care Provider] - Follow up/PCP as directed Additional Instructions: Drink plenty of fluids. Take your medication as prescribed. Return to the emergency department if symptoms worsen. Call your primary care provider on 12/03/2022 to make arrangements for further evaluation and management.
[2022-12-01 16:29] VITALS: TEMP 97.5
[2022-12-01] MEDS ORDERED: Sodium Chloride 0.9% 1000 ML 1,000 ML IV SCH (16:45)
[2022-12-01] MEDS ORDERED: Sodium Chloride 0.9% 1000 ML 1,000 ML ONE (16:58)
[2022-12-01 17:07] LABS: Absolute Neutrophil Ct (ANC) 7.12 x10^3/uL (1.4-6.9); BASOPHIL % 0.7 % (0.0-0.4); Basophil (Absolute #) 0.06 x10^3/uL (0-0.4); Eosinophil % 2.5 % (0.00-5.0); Eosinophil (Absolute #) 0.22 x10^3/uL (0-0.5); Hematocrit 32.4 % (42-50); IMMATURE GRAN # 0.04 x10^3u/L (0.00-0.03); IMMATURE GRAN % 0.5 % (0.00-0.4); Lymphocyte (Absolute #) 0.68 x10^3/uL (1.0-4.6); Lymphocytes % 7.8 % (24.0-44.0); Mean Cell Volume 98.2 fL (78-100); Mean Corpuscular Hemoglobin 30.3 pg (26-32); Mean Corpuscular Hgb Concent. 30.9 g/dL (32-36); Monocyte (Absolute #) 0.56 x10^3/uL (0.0-1.3); Monocytes % 6.5 % (0.0-12.0); Platelet Count 137 x10^3/uL (150-450); White Blood Count 8.7 x10^3/uL (4.0-10.5)
[2022-12-01 17:25] LABS: ALKALINE PHOSPHATASE 117 U/L (38-126); ANION GAP 8.6 MEQ/L (5-15); BLOOD UREA NITROGEN 24 mg/dL (9-20); CHLORIDE 103 mmol/L (98-107); Calcium 8.3 mg/dL (8.4-10.2); Carbon Dioxide 29 mmol/L (22-30); Creatinine 1 0.89 mg/dL (0.66-1.25); EST GLOMERULAR FILTRATION RATE > 60.0 ML/MIN; Glucose 84 mg/dL (74-106); Potassium 3.7 mmol/L (3.5-5.1); SGOT/AST 36 U/L (17-59); SGPT/ALT 41 U/L (0-50); SODIUM 136 mmol/L (137-145); TROPONIN < 0.012 ng/mL (0.000-0.034); Total Protein 5.6 g/dL (6.3-8.2)
[2022-12-01 18:29] LABS: Appearance Clear (Clear); Bacteria None Seen /HPF (None Seen); Bilirubin Negative (Negative); Blood NHT (Negative); Epithelial Cells None Seen /HPF (None Seen); Glucose, Urine 250 mg/dL (Negative); Hyaline Casts NONE SEEN /LPF (0-2); Ketones Negative (Negative); Leukocyte Esterase Negative (Negative); Nitrite Negative (Negative); Ph 5.5 (4.6-8.0); Protein,Urine Dip Negative (Negative); Specific Gravity 1.015 (1.005-1.030); WBC 0-2 /HPF (0-5)
[2022-12-01 18:36] LABS: ADD URINE CULTURE? NO (NO)
[2022-12-01 19:15] VITALS: BP 139/53; PULSE 59; RESP 16; O2SAT 99
--- NOTE | 2022-12-01 23:20 | XRAY ---
Indication: Weakness and cough. Comparison: October 18, 2022 Portable chest demonstrates clearing previous bilateral infrahilar interstitial alveolar opacities with mild residual on the right. Remaining lungs clear again with COPD and left base calcified granuloma. Heart not enlarged again with CABG. No new cardiopulmonary abnormalities.
== END 2022-12-01 19:16 | disposition home or self-care (01) ==
LOC: ED 16:10
DX: R53.1 Weakness (principal); R53.83 Other fatigue; E11.42 Type 2 diabetes mellitus with diabetic polyneuropathy; I10 Essential (primary) hypertension; Z79.4 Long term (current) use of insulin; Z79.01 Long term (current) use of anticoagulants; Z79.899 Other long term (current) drug therapy
CPT/HCPCS: 36000; 36415; 71045; 80053; 81001; 84484; 85025; 87086; 93005; 96360; 96361; 99284; P9612

== ENCOUNTER 2022-12-09 16:16 | Emergency (ER) | payer MEDICARE ==
--- NOTE | 2022-12-09 16:40 | ERPHSYRPT ---
- History of Present Illness Time Seen by Provider: 12/09/22 16:40 Source: patient, family Exam Limitations: no limitations Physician History: This is a 67-year-old white male patient of Dr. Cameron who was brought into the emergency department by his daughter who provided us with independent medical history. Patient has a history of prostate issues as well as recurrent urinary tract infections. He has been having some urinary retention over the last day or 2. Patient's daughter wants to be sure that we culture the urine because many times the initial urinalysis is negative for infection and then subsequent culture shows Enterococcus growth. She is checking the list of medications/antibiotics that has helped him when he does have a urinary tract infection. Patient has a history of type 2 diabetes, hypertension, coronary disease on Eliquis, prostate issues, CVA/TIAs, peripheral neuropathy, chronic orthostatic hypotension, hyperlipidemia and gastroesophageal reflux disease. Patient states "I feel pretty good". He does not have abdominal pain. He den ies chest pain and he denies shortness of breath. Timing/Duration: day(s) (1 to 2 days) Activites at Onset: none Quality: cramping, pressure Pain Radiation: none Severity of Pain-Max: mild (Suprapubic pressure) Severity of Pain-Current: mild (Suprapubic pressure) Modifying Factors: Improves With: nothing Associated Symptoms: other (Urine is dribbling out) Prior abdominal problems: none Sexual intercourse history: non-contributory Allergies/Adverse Reactions: No Known Drug Allergies Allergy (Verified 12/09/22 16:44) Home Medications: Albuterol Sulfate [Albuterol Sulfate Hfa] 2 puff IH QID 10/24/20 [History] Budesonide [Budesonide Dr] 3 mg PO DAILY 10/24/20 [History] Insulin Detemir [Levemir] 9 units SQ DAILY 10/24/20 [History] Dronedarone Hydrochloride 400* [Multaq 400 MG] 200 mg PO BID 09/16/21 [History] Insulin Aspart (Niacinamide) [Fiasp 100 Unit/ml Vial] 8 unit SQ BREAKFAST 09/16/21 [History] Insulin Aspart (Niacinamide) [Fiasp 100 Unit/ml Vial] 8 units SQ EVENING MEAL 09/16/21 [History] Insulin Aspart (Niacinamide) [Fiasp 100 Unit/ml Vial] 8 units SQ LUNCH 09/16/21 [History] Atorvastatin Calcium 40 mg PO QHS 01/01/22 [History] Tamsulosin HCl 0.4 mg [Flomax 0.4 MG] 2 cap PO HS 01/01/22 [History] Cyanocobalamin (Vitamin B-12) [Vitamin B-12] 1,000 mcg PO DAILY 01/02/22 [History] Alpha Lipoic Acid 300 mg PO DAILY 10/12/22 [History] Apixaban [Eliquis] 1 tab PO BID 10/12/22 [History] Cholecalciferol (Vitamin D3) [Vitamin D3] 1 tab PO WEEKLY 10/12/22 [History] Midodrine HCl [Proamatine] 1 tab PO TID 10/12/22 [History] [place]-3 Fatty Acids [[place]-3] 1 tab PO DAILY 10/12/22 [History] Psyllium Packet [Metamucil PACKET] 1 packet PO DAILY 10/12/22 [History] Aspirin EC 81 mg [Ecotrin 81 mg] 1 tab PO DAILY 12/01/22 [History] Ferrous Sulfate 325 mg [Feosol 325 mg] 1 tab PO DAILY 12/01/22 [History] Magnesium Oxide 400 mg [Mag-Ox 400] 1 tab PO DAILY 12/01/22 [History] Omeprazole 1 cap PO DAILY 12/01/22 [History] Hx Tetanus, Diphtheria Vaccination/Date Given: Yes Hx Influenza Vaccination/Date Given: Yes Hx Pneumococcal Vaccination/Date Given: Yes Travel Risk - International Travel Have you traveled outside of the country in past 3 weeks: No - Coronavirus Screening Are you exhibiting any of the following symptoms?: No Close contact with a COVID-19 positive Pt in past 14-21 Days: No - Vaccine Status Have you recieved a Covid-19 vaccination: Yes [employer]: [employer] - Vaccination Dates Date of 2cond Vaccination (if applicable): 2019 - Past Medical History Pertinent Past Medical History: Yes Neurological History: Stroke ENT History: Other Cardiac History: Coronary Artery Disease, Myocardial Infarction (ID) Respiratory History: No Pertinent History Endocrine Medical History: Diabetes Type II Musculoskeletal History: Arthritis GI Medical History: Crohns Disease History: No Pertinent History Psycho-Social History: No Pertinent History Male Reproductive Disorders: Prostate Problems Other Medical History: PMHX: ANEMIA, ATAXIA, A-FIB, ATROPHY OF PANCREAS, CAD, CEREBELLAR STROKE, CEREBRAL INFARCT, CHRONIC GERD, 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, DM, CHROHN'S DISEASE, HX OF FALLS, HTN, LUNG NODULES, MALNOURISHED, ORTHOSTATIC HYPOTENSION, SENSORY NEUROPATHY, TIA, VASCULAR INSUFFICIENCY OF EXTREMITIY,. SX PMHX: L HIP NAILING 03/07/2022, CABG, - Past Surgical History Past Surgical History: Yes Neuro Surgical History: No Pertinent History Cardiac: CABG, Cardiac Catheterization, Cardiac Stent, Other Respiratory: No Pertinent History Gastrointestinal: Appendectomy, Other Genitourinary: No Pertinent History Musculoskeletal: Orthopedic Surgery Male Surgical History: No Pertinent History Other Surgical History: 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, intestinal resection, triple bypass - Social History Smoking Status: Former smoker How long have you smoked: years Exposure to second hand smoke: Yes Drug Use: none Patient Lives Alone: No (daughter) Significant Family History: no pertinent family hx - Review of Systems Constitutional: No Symptoms Eyes: No Symptoms Ears, Nose, & Throat: No Symptoms Respiratory: No Symptoms Cardiac: No Symptoms Abdominal/Gastrointestinal: No Symptoms Genitourinary Symptoms: Urinary Retention, Other ("Dribbling" out of urine intermittently) Musculoskeletal: No Symptoms Skin: No Symptoms Neurological: No Symptoms Psychological: No Symptoms Endocrine: No Symptoms Hematologic/Lymphatic: No Symptoms Immunological/Allergic: No Symptoms All Other Systems: Reviewed and Negative - Nursing Vital Signs Nursing Vital Signs: Initial Vital Signs Pulse Rate 70 12/09/22 17:00 Respiratory Rate 18 12/09/22 17:00 Blood Pressure 106/60 12/09/22 17:00 O2 Sat by Pulse Oximetry 96 12/09/22 17:00 Pain Scale Pain Intensity 2 - Physical Exam General Appearance: no apparent distress, alert Eye Exam: PERRL/EOMI, eyes nml inspection Ears, Nose, Throat Exam: normal ENT inspection, moist mucous membranes Neck Exam: normal inspection, non-tender, supple, full range of motion Respiratory Exam: airway intact, No chest tenderness, No respiratory distress Gastrointestinal/Abdomen Exam: soft, normal bowel sounds, other (Suprapubic pressure) Rectal Exam: not done Back Exam: normal inspection, normal range of motion, No CVA tenderness, No vertebral tenderness Extremity Exam: normal inspection, normal range of motion, pelvis stable Neurologic Exam: alert, oriented x 3, cooperative, senior resident care director II-XII nml as tested, normal mood/affect, nml cerebellar function, nml station & gait, sensation nml Skin Exam: normal color, warm, dry Lymphatic Exam: No adenopathy SpO2 Interpretation: normal O2 Delivery: Room Air - Course Nursing assessment & vital signs reviewed: Yes Ordered Tests: Active Orders 24 hr Category Date Time Status Catheter-[place] Willams STAT Care 12/09/22 16:40 Active CULTURE,URINE Stat Lab 12/09/22 17:14 Received UA W/RFX UR CULTURE Stat Lab 12/09/22 17:14 Completed Medication Summary Generic Name Dose Route Start Last Admin Trade Name Italoq PRN Reason Stop Dose Admin Amoxicillin 500 mg 12/09/22 17:50 Amoxicillin Trihydrate 500 Mg Capsule PO 12/09/22 17:51 STAT ONE Levofloxacin 500 mg 12/09/22 17:50 Levofloxacin 500 Mg Tablet PO 12/09/22 17:51 STAT ONE Lab/Rad Data: Laboratory Results 12/09/22 Range/Units 17:14 Urine Color Yellow (Yellow) Urine Appearance Turbid A (Clear) Urine pH 6.5 (4.6-8.0) Ur Specific [place] 1.010 (1.005-1.030) Urine Protein Trace A (Negative) Urine Glucose (UA) 250 A (Negative) mg/dL Urine Ketones Negative (Negative) Urine Blood Small A (Negative) Urine Nitrite Positive A (Negative) Urine Bilirubin Negative (Negative) Urine Urobilinogen 1.0 A (0.2) mg/dL Ur Leukocyte Esterase Large A (Negative) U Hyaline Cast (Auto) 3-5 A (0-2) /LPF Urine Microscopic RBC 0-2 (0-5) /HPF Urine Microscopic WBC >100 A (0-5) /HPF Ur Epithelial Cells None Seen (None Seen) /HPF Urine Bacteria Moderate A (None Seen) /HPF Urine Culture Reflexed ORDERED SEPARATELY (NO) - Progress Progress: unchanged Progress Note: 12/09/22 17:57 This patient's medical issue is 1 of low complexity. What the patient, the patient's daughter and I agreed to was to place a Willams catheter and to keep that in place. He will be discharged to home with the Willams catheter in place and given instructions. He has urinary retention. The urinalysis was performed as the work-up. No other studies were necessary. Per patient's daughter, if the nitrite is positive patient typically grows Enterococcus and is placed on amoxicillin. I feel uncomfortable just putting him on the amoxicillin so I also provided Levaquin p.o. to today and then I did send a prescription for amoxicillin and Levaquin remotely to the patient's pharmacy. Patient's daughter will follow-up with the primary care provider to determine what the culture and sensitivity reveals Counseled pt/family regarding: lab results, diagnosis, need for follow-up Medical Desision Making - Independent Historian Additional History obtained from: Child (Daughter) - Social Determinants of Health Limited access to: transportation - Diagnostic Testing Diagnostic test were ordered, analyzed, and reviewed by me: Yes - Risk of complications The pt has a mod risk of morbidity or mortality based on: Need for prescription drug management - Departure Departure Disposition: Home Clinical Impression: UTI (urinary tract infection), Urinary retention Condition: Stable Critical Care Time: No Referrals: JOSE ALBERTO CAMERON [Primary Care Provider] - Follow up/PCP as directed Additional Instructions: Plenty of fluids. Take antibiotics as prescribed. Follow-up with Dr. Cameron in approximately 48 hours to find out the culture growth. Prescriptions: Amoxicillin 500 mg Cap [Amoxil 500 mg] 500 mg PO TID #30 cap Levofloxacin [Levaquin 500 MG Tablet] 500 mg PO DAILY #7 tablet
[2022-12-09 17:23] LABS: ADD URINE CULTURE? ORDERED SEPARATELY (NO); Appearance Turbid (Clear); Bacteria Moderate /HPF (None Seen); Bilirubin Negative (Negative); Blood Small (Negative); Epithelial Cells None Seen /HPF (None Seen); Glucose, Urine 250 mg/dL (Negative); Ketones Negative (Negative); Leukocyte Esterase Large (Negative); Nitrite Positive (Negative); Ph 6.5 (4.6-8.0); Protein,Urine Dip Trace (Negative); RBC 0-2 /HPF (0-5); WBC >100 /HPF (0-5)
[2022-12-09 17:45] VITALS: PULSE 65; RESP 18
[2022-12-09] MEDS ORDERED: Levofloxacin 500 MG Tablet PO ONE (17:50)
[2022-12-09] MEDS ORDERED: AMOXIL 500 MG PO ONE (17:50)
[2022-12-09] MEDS ORDERED: AMOXIL 500 MG ONE (18:04)
[2022-12-09] MEDS ORDERED: Levofloxacin 500 MG Tablet ONE (18:04)
[2022-12-09 18:07] VITALS: BP 131/75; O2SAT 97
== END 2022-12-09 18:20 | disposition home or self-care (01) ==
LOC: ED 16:16
DX: N39.0 Urinary tract infection, site not specified (principal); R33.9 Retention of urine, unspecified; E11.42 Type 2 diabetes mellitus with diabetic polyneuropathy; I10 Essential (primary) hypertension; E78.5 Hyperlipidemia, unspecified; Z79.01 Long term (current) use of anticoagulants; Z79.4 Long term (current) use of insulin; Z79.899 Other long term (current) drug therapy
CPT/HCPCS: 51702; 81001; 87086; 99283; A9270-GY

== ENCOUNTER 2022-12-19 14:58 | Emergency (ER) | payer MEDICARE ==
--- NOTE | 2022-12-19 15:03 | ERPHSYRPT ---
- History of Present Illness Time Seen by Provider: 12/19/22 15:02 Source: patient, family, old records Exam Limitations: clinical condition Physician History: This is a 67-year-old frail white male patient of Dr. Cameron has multiple medical problems. The multiple medical problems include diabetes, coronary disease on Eliquis, CVAs, TIAs, peripheral neuropathy, chronic orthostatic hypotension (midodrine) hyperlipidemia and gastroesophageal reflux disease. Yesterday, per family member who provided independent medical history, stated that he had a good day and his blood pressure seem to be fine but his blood sugar increased unexpectedly. Today, the patient's blood pressure was very low and he was at physical therapy and was a bit confused. Patient had a Willams catheter in place until yesterday where it was removed and he has been urinating fine. Patient has no complaints of pain at this time. Patient chronically has prostate issues as well as recurrent UTIs (often grows out Enterococcus). I spoke with the patient's daughter who is the primary care provider for him. She is pleased with the patient's response to our management. The patient does have mild hyperglycemia today but it was improved over the earlier level. His current systolic blood pressure is 127. Patient states, in the presence of the patient's daughter, that he is feeling much better. He has no chest pain. He has no shortness of breath. We will discharge him to home with instructions for him to follow-up with his primary care provider by phone, 12/20/2022, to make an appointment for further evaluation management. Timing/Duration: yesterday, worse Severity: mild (Moderate) Associated Symptoms: malaise, weakness, No shortness of breath, No chest pain Allergies/Adverse Reactions: No Known Drug Allergies Allergy (Verified 12/19/22 15:00) Home Medications: Albuterol Sulfate [Albuterol Sulfate Hfa] 2 puff IH QID 10/24/20 [History] Budesonide [Budesonide Dr] 3 mg PO DAILY 10/24/20 [History] Insulin Detemir [Levemir] 9 units SQ DAILY 10/24/20 [History] Dronedarone Hydrochloride 400* [Multaq 400 MG] 200 mg PO BID 09/16/21 [History] Insulin Aspart (Niacinamide) [Fiasp 100 Unit/ml Vial] 8 unit SQ BREAKFAST 09/16/21 [History] Insulin Aspart (Niacinamide) [Fiasp 100 Unit/ml Vial] 8 units SQ EVENING MEAL 09/16/21 [History] Insulin Aspart (Niacinamide) [Fiasp 100 Unit/ml Vial] 8 units SQ LUNCH 09/16/21 [History] Atorvastatin Calcium 40 mg PO QHS 01/01/22 [History] Tamsulosin HCl 0.4 mg [Flomax 0.4 MG] 2 cap PO HS 01/01/22 [History] Cyanocobalamin (Vitamin B-12) [Vitamin B-12] 1,000 mcg PO DAILY 01/02/22 [History] Alpha Lipoic Acid 300 mg PO DAILY 10/12/22 [History] Apixaban [Eliquis] 1 tab PO BID 10/12/22 [History] Cholecalciferol (Vitamin D3) [Vitamin D3] 1 tab PO WEEKLY 10/12/22 [History] Midodrine HCl [Proamatine] 1 tab PO TID 10/12/22 [History] [place]-3 Fatty Acids [[place]-3] 1 tab PO DAILY 10/12/22 [History] Psyllium Packet [Metamucil PACKET] 1 packet PO DAILY 10/12/22 [History] Aspirin EC 81 mg [Ecotrin 81 mg] 1 tab PO DAILY 12/01/22 [History] Ferrous Sulfate 325 mg [Feosol 325 mg] 1 tab PO DAILY 12/01/22 [History] Magnesium Oxide 400 mg [Mag-Ox 400] 1 tab PO DAILY 12/01/22 [History] Omeprazole 1 cap PO DAILY 12/01/22 [History] Doxycycline Hyclate 100 mg [Vibramycin 100 MG] 1 tab PO BID 12/19/22 [History] Hx Tetanus, Diphtheria Vaccination/Date Given: Yes Hx Influenza Vaccination/Date Given: Yes Hx Pneumococcal Vaccination/Date Given: Yes Travel Risk - International Travel Have you traveled outside of the country in past 3 weeks: No - Coronavirus Screening Are you exhibiting any of the following symptoms?: No Close contact with a COVID-19 positive Pt in past 14-21 Days: No - Vaccine Status Have you recieved a Covid-19 vaccination: Yes [employer]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[employer]: [employer] - Vaccination Dates Date of 2cond Vaccination (if applicable): 2019 - Review of Systems Constitutional: Weakness Eyes: No Symptoms Ears, Nose, & Throat: No Symptoms Respiratory: No Symptoms Cardiac: No Symptoms Abdominal/Gastrointestinal: No Symptoms Genitourinary Symptoms: No Symptoms Musculoskeletal: No Symptoms Skin: No Symptoms Neurological: Lethargy (Mild) Psychological: No Symptoms Endocrine: No Symptoms Hematologic/Lymphatic: No Symptoms Immunological/Allergic: No Symptoms All Other Systems: Reviewed and Negative - Past Medical History Pertinent Past Medical History: Yes Neurological History: Stroke ENT History: Other Cardiac History: Coronary Artery Disease, Myocardial Infarction ([place]) Respiratory History: No Pertinent History Endocrine Medical History: Diabetes Type II Musculoskeletal History: Arthritis GI Medical History: Crohns Disease History: No Pertinent History Psycho-Social History: No Pertinent History Male Reproductive Disorders: Prostate Problems Other Medical History: PMHX: ANEMIA, ATAXIA, A-FIB, ATROPHY OF PANCREAS, CAD, CEREBELLAR STROKE, CEREBRAL INFARCT, CHRONIC GERD, 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, DM, CHROHN'S DISEASE, HX OF FALLS, HTN, LUNG NODULES, MALNOURISHED, ORTHOSTATIC HYPOTENSION, SENSORY NEUROPATHY, TIA, VASCULAR INSUFF ICIENCY OF EXTREMITIY,. SX PMHX: L HIP NAILING 03/07/2022, CABG, - Past Surgical History Past Surgical History: Yes Neuro Surgical History: No Pertinent History Cardiac: CABG, Cardiac Catheterization, Cardiac Stent, Other Respiratory: No Pertinent History Gastrointestinal: Appendectomy, Other Genitourinary: No Pertinent History Musculoskeletal: Orthopedic Surgery Male Surgical History: No Pertinent History Other Surgical History: 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, intestinal resection, triple bypass - Social History Smoking Status: Former smoker How long have you smoked: years Exposure to second hand smoke: Yes Drug Use: none Patient Lives Alone: No (daughter) Significant Family History: no pertinent family hx - Nursing Vital Signs Nursing Vital Signs: Initial Vital Signs Temperature 97.9 F 12/19/22 15:01 Pulse Rate 70 12/19/22 15:01 Respiratory Rate 17 12/19/22 15:01 Blood Pressure 117/68 12/19/22 15:01 O2 Sat by Pulse Oximetry 96 12/19/22 15:01 Pain Scale Pain Intensity 0 - Physical Exam General Appearance: no apparent distress, alert, cachetic Eye Exam: PERRL/EOMI, eyes nml inspection Ears, Nose, Throat Exam: normal ENT inspection, moist mucous membranes Neck Exam: normal inspection, non-tender, supple, full range of motion Respiratory Exam: normal breath sounds, lungs clear, airway intact, No chest tenderness, No respiratory distress Cardiovascular Exam: regular rate/rhythm, normal heart sounds, normal peripheral pulses Gastrointestinal/Abdomen Exam: soft, normal bowel sounds, No tenderness Rectal Exam: not done Back Exam: normal inspection, normal range of motion, No CVA tenderness, No vertebral tenderness Extremity Exam: normal inspection, normal range of motion, pelvis stable Neurologic Exam: alert, oriented x 3, cooperative, hybrid corn breeder II-XII nml as tested, normal mood/affect, sensation nml Skin Exam: normal color, warm, dry Lymphatic Exam: No adenopathy SpO2 Interpretation: normal O2 Delivery: Room Air - Course Nursing assessment & vital signs reviewed: Yes EKG Interpreted by Me: RATE (72), Sinus Rhythm, NORMAL AXIS, Right Bundle Branch Block, NORMAL ST-T, Other (Atrial premature complexes and prolonged CT interval. This twelve-lead EKG is no different when compared to the twelve-lead EKG that was performed on 12/01/2022. There are no acute ischemic changes on to day's twelve-lead EKG) Ordered Tests: Active Orders 24 hr Category Date Time Status Academic Affairs Director STAT Care 12/19/22 15:11 Active EKG-ER Only STAT Care 12/19/22 15:10 Active IV Insertion STAT Care 12/19/22 15:10 Active Pulse Oximetry (ED) STAT Care 12/19/22 15:10 Active cath [Cath for Specimen-Straight] STAT Care 12/19/22 15:26 Active HEAD WITHOUT CONTRAST [CT] Stat Exams 12/19/22 15:12 Completed BLOOD CULTURE Stat Lab 12/19/22 15:50 Received CBC W DIFF Stat Lab 12/19/22 15:10 Completed CMP Stat Lab 12/19/22 15:10 Completed CULTURE,URINE Stat Lab 12/19/22 15:27 Ordered MAGNESIUM Stat Lab 12/19/22 15:10 Completed NT PRO BNPII Stat Lab 12/19/22 15:10 Completed POCT GLUCOSE Stat Lab 12/19/22 15:10 Completed TROPONIN Q4H Lab 12/19/22 15:10 Completed TROPONIN Q4H Lab 12/19/22 19:15 Ordered TROPONIN Q4H Lab 12/19/22 23:15 Ordered UA W/RFX UR CULTURE Stat Lab 12/19/22 15:27 Completed Medication Summary Generic Name Dose Route Start Last Admin Trade Name Daphne PRN Reason Stop Dose Admin Sodium Chloride 1,000 mls @ 100 mls/hr 12/19/22 15:15 12/19/22 17:18 Sodium Chloride 0.9% 1000 Ml IV 01/18/23 15:14 999 mls/hr .Q10H [facility] Infusion Lab/Rad Data: Laboratory Result Diagrams 12/19/22 15:10 12/19/22 15:10 Laboratory Results 12/19/22 12/19/22 12/19/22 Range/Units 15:50 15:27 15:10 WBC (4.0-10.5) x10^3/uL RBC (4.1-5.6) x10^6/uL Hgb (12.5-18.0) g/dL Hct (42-50) % MCV (78-100) fL MCH (26-32) pg MCHC (32-36) g/dL RDW (11.5-14.0) % Plt Count (150-450) x10^3/uL MPV (7.5-11.0) fL Gran % (36.0-66.0) % Immature Gran % (Auto) (0.00-0.4) % Nucleat RBC Rel Count (0.00-0.1) % Eos # (Auto) (0-0.5) x10^3/uL Immature Gran # (Auto) (0.00-0.03) x10^3u/L Absolute Lymphs (auto) (1.0-4.6) x10^3/uL Absolute Monos (auto) (0.0-1.3) x10^3/uL Absolute Nucleated RBC (0.00-0.01) x10^3u/L Lymphocytes % (24.0-44.0) % Monocytes % (0.0-12.0) % Eosinophils % (0.00-5.0) % Basophils % (0.0-0.4) % Absolute Granulocytes (1.4-6.9) x10^3/uL Basophils # (0-0.4) x10^3/uL Sodium (137-145) mmol/L Potassium (3.5-5.1) mmol/L Chloride (98-107) mmol/L Carbon Dioxide (22-30) mmol/L Anion Gap (5-15) MEQ/L BUN (9-20) mg/dL Creatinine (0.66-1.25) mg/dL Estimated GFR ML/MIN Glucose (74-106) mg/dL POC Glucometer (74 to 106) mg/dL Calcium (8.4-10.2) mg/dL Magnesium (1.6-2.3) mg/dL Total Bilirubin (0.2-1.3) mg/dL AST (17-59) U/L ALT (0-50) U/L Alkaline Phosphatase (38-126) U/L Ammonia < 9 L (9-30) umol/L Troponin I < 0.012 (0.000-0.034) ng/mL NT-Pro-B Natriuret Pep (<300) pg/mL Serum Total Protein (6.3-8.2) g/dL Albumin (3.5-5.0) g/dL Urine Color Yellow (Yellow) Urine Appearance Clear (Clear) Urine pH 5.5 (4.6-8.0) Ur Specific Eure 1.010 (1.005-1.030) Urine Protein Negative (Negative) Urine Glucose (UA) 100 A (Negative) mg/dL Urine Ketones Negative (Negative) Urine Blood Negative (Negative) Urine Nitrite Negative (Negative) Urine Bilirubin Negative (Negative) Urine Urobilinogen 0.2 (0.2) mg/dL Ur Leukocyte Esterase Negative (Negative) U Hyaline Cast (Auto) NONE SEEN (0-2) /LPF Urine Microscopic RBC 0-2 (0-5) /HPF Urine Microscopic WBC 0-2 (0-5) /HPF Ur Epithelial Cells None Seen (None Seen) /HPF Urine Bacteria None Seen (None Seen) /HPF Urine Culture Reflexed NO (NO) 12/19/22 12/19/22 12/19/22 Range/Units 15:10 15:10 15:10 WBC 9.1 (4.0-10.5) x10^3/uL RBC 3.81 L (4.1-5.6) x10^6/uL Hgb 11.6 L (12.5-18.0) g/dL Hct 36.2 L (42-50) % MCV 95.0 (78-100) fL MCH 30.4 (26-32) pg MCHC 32.0 (32-36) g/dL RDW 13.9 (11.5-14.0) % Plt Count 174 (150-450) x10^3/uL MPV 12.8 H (7.5-11.0) fL Gran % 75.6 H (36.0-66.0) % Immature Gran % (Auto) 1.2 H (0.00-0.4) % Nucleat RBC Rel Count 0.0 (0.00-0.1) % Eos # (Auto) 0.19 (0-0.5) x10^3/uL Immature Gran # (Auto) 0.11 H (0.00-0.03) x10^3u/L Absolute Lymphs (auto) 1.16 (1.0-4.6) x10^3/uL Absolute Monos (auto) 0.66 (0.0-1.3) x10^3/uL Absolute Nucleated RBC 0.00 (0.00-0.01) x10^3u/L Lymphocytes % 12.8 L (24.0-44.0) % Monocytes % 7.3 (0.0-12.0) % Eosinophils % 2.1 (0.00-5.0) % Basophils % 1.0 (0.0-0.4) % Absolute Granulocytes 6.84 (1.4-6.9) x10^3/uL Basophils # 0.09 (0-0.4) x10^3/uL Sodium 133 L (137-145) mmol/L Potassium 4.0 (3.5-5.1) mmol/L Chloride 97 L (98-107) mmol/L Carbon Dioxide 28 (22-30) mmol/L Anion Gap 11.8 (5-15) MEQ/L BUN 31 H (9-20) mg/dL Creatinine 1.23 (0.66-1.25) mg/dL Estimated GFR > 60.0 ML/MIN Glucose 263 H (74-106) mg/dL POC Glucometer 259 H (74 to 106) mg/dL Calcium 9.0 (8.4-10.2) mg/dL Magnesium 1.6 (1.6-2.3) mg/dL Total Bilirubin 0.50 (0.2-1.3) mg/dL AST 34 (17-59) U/L ALT 39 (0-50) U/L Alkaline Phosphatase 128 H (38-126) U/L Ammonia (9-30) umol/L Troponin I (0.000-0.034) ng/mL NT-Pro-B Natriuret Pep 748 (<300) pg/mL Serum Total Protein 6.2 L (6.3-8.2) g/dL Albumin 3.5 (3.5-5.0) g/dL Urine Color (Yellow) Urine Appearance (Clear) Urine pH (4.6-8.0) Ur Specific Eure (1.005-1.030) Urine Protein (Negative) Urine Glucose (UA) (Negative) mg/dL Urine Ketones (Negative) Urine Blood (Negative) Urine Nitrite (Negative) Urine Bilirubin (Negative) Urine Urobilinogen (0.2) mg/dL Ur Leukocyte Esterase (Negative) U Hyaline Cast (Auto) (0-2) /LPF Urine Microscopic RBC (0-5) /HPF Urine Microscopic WBC (0-5) /HPF Ur Epithelial Cells (None Seen) /HPF Urine Bacteria (None Seen) /HPF Urine Culture Reflexed (NO) - Progress Progress: improved, re-examined Progress Note: 12/19/22 17:17 This patient's medical issue is 1 of moderate complexity. Level complexity and the work-up performed is based on review of the patient's past medical history, review of the patient's medication list, review the patient's drug allergy list, history of present illness and physical findings on examination. The work-up in this patient includes ammonia level, urinalysis, CBC, CMP, twelve-lead EKG, troponin level, and CT scan of the head. I have reviewed the results of all of the studies. The CT scan of the head without contrast was interpreted by the radiologist and the findings show a nonacute senile brain with multifocal remote lacunar infarcts and incidental paranasal sinus disease. We will bolus this patient a liter of fluid and then discuss the work-up results with the patient and his family. I do not appreciate any acute, emergent medical issue at this time. 12/19/22 17:19 Counseled pt/family regarding: lab results, diagnosis, need for follow-up, rad results Medical Desision Making - Independent Historian Additional History obtained from: Child (Daughter), Divider Operator (Home health) - External Record(s) Reviewed Records reviewed as a part of evaluation & management: Inpatient - Diagnostic Testing Diagnostic test were ordered, analyzed, and reviewed by me: Yes Radiological Interpretation: Reviewed by me, Teleradiologist Report - Risk of complications Low Risk: Low risk of morbidity from additional dx testing or treatment - Departure Departure Disposition: Home Clinical Impression: Hypotension, Dehydration, mild, Hyperglycemia Condition: Stable Critical Care Time: No Referrals: JOSE ALBERTO CAMERON [Primary Care Provider] - Follow up/PCP as directed Additional Instructions: Take your medications as prescribed. Follow-up with your primary care provider tomorrow, 12/20/2022, by phone to make an appointment for further evaluation management.
[2022-12-19] MEDS ORDERED: Sodium Chloride 0.9% 1000 ML 1,000 ML ONE (15:14)
[2022-12-19] MEDS ORDERED: Sodium Chloride 0.9% 1000 ML 1,000 ML IV SCH (15:15)
[2022-12-19 15:23] VITALS: TEMP 97.9
[2022-12-19 15:24] LABS: Absolute Neutrophil Ct (ANC) 6.84 x10^3/uL (1.4-6.9); Basophil (Absolute #) 0.09 x10^3/uL (0-0.4); Eosinophil % 2.1 % (0.00-5.0); Eosinophil (Absolute #) 0.19 x10^3/uL (0-0.5); Hematocrit 36.2 % (42-50); Hemoglobin 11.6 g/dL (12.5-18.0); IMMATURE GRAN # 0.11 x10^3u/L (0.00-0.03); IMMATURE GRAN % 1.2 % (0.00-0.4); Lymphocyte (Absolute #) 1.16 x10^3/uL (1.0-4.6); Lymphocytes % 12.8 % (24.0-44.0); Mean Corpuscular Hemoglobin 30.4 pg (26-32); Mean Platelet Volume 12.8 fL (7.5-11.0); Monocyte (Absolute #) 0.66 x10^3/uL (0.0-1.3); Monocytes % 7.3 % (0.0-12.0); Neutrophil % 75.6 % (36.0-66.0); Platelet Count 174 x10^3/uL (150-450); Red Blood Count 3.81 x10^6/uL (4.1-5.6); Red Cell Distribution Width 13.9 % (11.5-14.0); White Blood Count 9.1 x10^3/uL (4.0-10.5)
[2022-12-19 15:38] LABS: Appearance Clear (Clear); Bacteria None Seen /HPF (None Seen); Bilirubin Negative (Negative); Blood Negative (Negative); Epithelial Cells None Seen /HPF (None Seen); Glucose, Urine 100 mg/dL (Negative); Hyaline Casts NONE SEEN /LPF (0-2); Ketones Negative (Negative); Leukocyte Esterase Negative (Negative); Nitrite Negative (Negative); Ph 5.5 (4.6-8.0); Protein,Urine Dip Negative (Negative); RBC 0-2 /HPF (0-5); Urobilinogen 0.2 mg/dL (0.2); WBC 0-2 /HPF (0-5)
[2022-12-19 15:39] LABS: ADD URINE CULTURE? NO (NO)
[2022-12-19 15:54] LABS: ALBUMIN 3.5 g/dL (3.5-5.0); ALKALINE PHOSPHATASE 128 U/L (38-126); ANION GAP 11.8 MEQ/L (5-15); BLOOD UREA NITROGEN 31 mg/dL (9-20); CHLORIDE 97 mmol/L (98-107); Carbon Dioxide 28 mmol/L (22-30); Creatinine 1 1.23 mg/dL (0.66-1.25); EST GLOMERULAR FILTRATION RATE > 60.0 ML/MIN; Glucose 263 mg/dL (74-106); MAGNESIUM 1.6 mg/dL (1.6-2.3); NT PRO BNPII 748 pg/mL (<300); SGOT/AST 34 U/L (17-59); SGPT/ALT 39 U/L (0-50); SODIUM 133 mmol/L (137-145); Total Protein 6.2 g/dL (6.3-8.2)
--- NOTE | 2022-12-19 16:29 | XRAY ---
Indication: Confusion. Altered mental status. Multiple contiguous axial images obtained head without contrast. Comparison: October 17, 2022 Again age-appropriate global atrophy, moderate periventricular degenerative micro-ischemia bilaterally, and remote lacunar infarcts left basal ganglia/right basal ganglia/right mid mares radiata/brainstem. No acute intracranial hemorrhage, abnormal extra-axial fluid collection, or mass effect. Fourth ventricle is midline without hydrocephalus. Bony calvarium intact. Stable mild mucosal thickening left maxillary sinus. Mastoid air cells are clear. Impression: Continued nonacute senile brain with again multifocal remote lacunar infarcts and incidental paranasal sinus disease.
[2022-12-19 17:00] VITALS: O2SAT 99
[2022-12-19 18:11] VITALS: BP 148/84; PULSE 66; RESP 20
== END 2022-12-19 18:20 | disposition home or self-care (01) ==
LOC: ED 14:58
DX: I95.9 Hypotension, unspecified (principal); E86.0 Dehydration; E11.65 Type 2 diabetes mellitus with hyperglycemia; E11.42 Type 2 diabetes mellitus with diabetic polyneuropathy; E78.5 Hyperlipidemia, unspecified; Z79.01 Long term (current) use of anticoagulants; Z79.4 Long term (current) use of insulin; Z79.899 Other long term (current) drug therapy
CPT/HCPCS: 36000; 36415; 70450; 80053; 81001; 82140; 82947; 83735; 83880; 84484; 85025; 87040; 87086; 93005; 93041; 94760; 99284; P9612

== ENCOUNTER 2022-12-28 11:13 | Emergency (ER) | payer MEDICARE ==
[2022-12-28 11:36] VITALS: TEMP 97.7
[2022-12-28 11:37] LABS: Absolute Neutrophil Ct (ANC) 4.42 x10^3/uL (1.4-6.9); BASOPHIL % 0.9 % (0.0-0.4); Basophil (Absolute #) 0.05 x10^3/uL (0-0.4); Eosinophil % 2.1 % (0.00-5.0); Eosinophil (Absolute #) 0.12 x10^3/uL (0-0.5); Hematocrit 32.3 % (42-50); Hemoglobin 10.4 g/dL (12.5-18.0); IMMATURE GRAN # 0.04 x10^3u/L (0.00-0.03); IMMATURE GRAN % 0.7 % (0.00-0.4); Lymphocyte (Absolute #) 0.73 x10^3/uL (1.0-4.6); Lymphocytes % 12.7 % (24.0-44.0); Mean Cell Volume 94.2 fL (78-100); Mean Corpuscular Hemoglobin 30.3 pg (26-32); Mean Corpuscular Hgb Concent. 32.2 g/dL (32-36); Mean Platelet Volume 12.8 fL (7.5-11.0); Monocyte (Absolute #) 0.41 x10^3/uL (0.0-1.3); Monocytes % 7.1 % (0.0-12.0); Neutrophil % 76.5 % (36.0-66.0); Platelet Count 137 x10^3/uL (150-450); Red Blood Count 3.43 x10^6/uL (4.1-5.6); White Blood Count 5.8 x10^3/uL (4.0-10.5)
[2022-12-28 11:53] LABS: PROTIME 10.9 SECONDS (9.4-12.5); PTT 26.8 SECONDS (25.1-36.5)
[2022-12-28 12:03] LABS: ALBUMIN 3.4 g/dL (3.5-5.0); ALKALINE PHOSPHATASE 127 U/L (38-126); ANION GAP 10.4 MEQ/L (5-15); BLOOD UREA NITROGEN 19 mg/dL (9-20); CHLORIDE 96 mmol/L (98-107); Calcium 8.6 mg/dL (8.4-10.2); Carbon Dioxide 28 mmol/L (22-30); Creatinine 1 0.69 mg/dL (0.66-1.25); EST GLOMERULAR FILTRATION RATE > 60.0 ML/MIN; Glucose 315 mg/dL (74-106); NT PRO BNPII 520 pg/mL (<300); Potassium 4.2 mmol/L (3.5-5.1); SGOT/AST 33 U/L (17-59); SGPT/ALT 37 U/L (0-50); SODIUM 130 mmol/L (137-145); TROPONIN < 0.012 ng/mL (0.000-0.034); Total Protein 5.9 g/dL (6.3-8.2)
--- NOTE | 2022-12-28 12:21 | ERPHSYRPT ---
- History of Present Illness Source: patient, other (Caregiver) Patient Subjective Stated Complaint: C/O cough that started around Saturday. States SOB today. Triage Nursing Assessment: Patient brought back to ER in a W/C. No cough and no SOB noted at this time. He is alert and oriented. Pale, Bruising noted to BUE. Patient able to transfer from w/c to bed with assist of 1 staff. Lungs clear. Patient does c/o some chest pain when taking deep breaths for nurse. 1+ pitting edema to RLE and 2+ pitting edema to LLE. Physician History: 67 yo WM w cough c 5 days. He denies coryza/ST/dyspnea/fever/chest pain/N/V/D/melena/hematochezia. Pt smoked 1ppd until 2 yrs ago. Timing/Duration: other (5 days) Cough Quality/Degree: dry cough Possible Cause: occasional episodes Modifying Factors: Improves With: coughing Associated Symptoms: denies symptoms, cough Allergies/Adverse Reactions: No Known Drug Allergies Allergy (Verified 12/28/22 11:16) Home Medications: Albuterol Sulfate [Albuterol Sulfate Hfa] 2 puff IH QID 10/24/20 [History] Budesonide [Budesonide Dr] 3 mg PO DAILY 10/24/20 [History] Insulin Detemir [Levemir] 9 units SQ DAILY 10/24/20 [History] Dronedarone Hydrochloride 400* [Multaq 400 MG] 200 mg PO BID 09/16/21 [History] Insulin Aspart (Niacinamide) [Fiasp 100 Unit/ml Vial] 8 unit SQ BREAKFAST 09/16/21 [History] Insulin Aspart (Niacinamide) [Fiasp 100 Unit/ml Vial] 8 units SQ EVENING MEAL 09/16/21 [History] Insulin Aspart (Niacinamide) [Fiasp 100 Unit/ml Vial] 8 units SQ LUNCH 09/16/21 [History] Atorvastatin Calcium 40 mg PO QHS 01/01/22 [History] Tamsulosin HCl 0.4 mg [Flomax 0.4 MG] 2 cap PO HS 01/01/22 [History] Cyanocobalamin (Vitamin B-12) [Vitamin B-12] 1,000 mcg PO DAILY 01/02/22 [History] Alpha Lipoic Acid 300 mg PO DAILY 10/12/22 [History] Apixaban [Eliquis] 1 tab PO BID 10/12/22 [History] Cholecalciferol (Vitamin D3) [Vitamin D3] 1 tab PO WEEKLY 10/12/22 [History] Midodrine HCl [Proamatine] 1 tab PO TID 10/12/22 [History] Ottosen-3 Fatty Acids [Ottosen-3] 1 tab PO DAILY 10/12/22 [History] Psyllium Packet [Metamucil PACKET] 1 packet PO DAILY 10/12/22 [History] Aspirin EC 81 mg [Ecotrin 81 mg] 1 tab PO DAILY 12/01/22 [History] Ferrous Sulfate 325 mg [Feosol 325 mg] 1 tab PO DAILY 12/01/22 [History] Magnesium Oxide 400 mg [Mag-Ox 400] 1 tab PO DAILY 12/01/22 [History] Omeprazole 1 cap PO DAILY 12/01/22 [History] Finasteride 5 mg [Proscar 5 MG] 1 tab PO DAILY 12/28/22 [History] Nitrofurantoin Macro 100 mg [Macrobid 100MG Capsule] 1 cap PO BID 12/28/22 [History] Hx Tetanus, Diphtheria Vaccination/Date Given: Yes Hx Influenza Vaccination/Date Given: Yes Hx Pneumococcal Vaccination/Date Given: Yes Immunizations Up to Date: Yes Travel Risk - International Travel Have you traveled outside of the country in past 3 weeks: No - Coronavirus Screening Are you exhibiting any of the following symptoms?: Yes Symptoms: Cough: New Onset, Shortness of Breath Close contact with a COVID-19 positive Pt in past 14-21 Days: No - Vaccine Status Have you recieved a Covid-19 vaccination: Yes Dope Worker: CYBRA - Vaccination Dates Date of 2cond Vaccination (if applicable): 2019 - Review of Systems Constitutional: No Symptoms Eyes: No Symptoms Ears, Nose, & Throat: No Symptoms Respiratory: No Symptoms, Cough Cardiac: No Symptoms Abdominal/Gastrointestinal: No Symptoms Genitourinary Symptoms: No Symptoms Musculoskeletal: No Symptoms Skin: No Symptoms Neurological: No Symptoms Psychological: No Symptoms Endocrine: No Symptoms Hematologic/Lymphatic: No Symptoms Immunological/Allergic: No Symptoms - Past Medical History Pertinent Past Medical History: Yes Neurological History: Stroke, TIA ENT History: Other Cardiac History: Coronary Artery Disease, Hypertension, Myocardial Infarction ([place]) Respiratory History: No Pertinent History Endocrine Medical History: Diabetes Type II Musculoskeletal History: Arthritis, Fractures GI Medical History: Crohns Disease, GERD History: No Pertinent History Psycho-Social History: No Pertinent History Male Reproductive Disorders: Prostate Problems Other Medical History: ANEMIA, ATAXIA, A-FIB, ATROPHY OF PANCREAS, 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, LUNG NODULES, MALNOURISHED, ORTHOSTATIC HYPOTENSION, SENSORY NEUROPATHY, VASCULAR INSUFFICIENCY OF EXTREMITIY - Past Surgical History Past Surgical History: Yes Neuro Surgical History: No Pertinent History Cardiac: CABG, Cardiac Catheterization, Cardiac Stent, Other Respiratory: No Pertinent History Gastrointestinal: Appendectomy, Other Genitourinary: No Pertinent History Musculoskeletal: Orthopedic Surgery Male Surgical History: No Pertinent History Other Surgical History: 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, intestinal resection, triple bypass - Social History Smoking Status: Former smoker How long have you smoked: years Exposure to second hand smoke: Yes Drug Use: none Patient Lives Alone: No (daughter) Significant Family History: no pertinent family hx - Nursing Vital Signs Nursing Vital Signs: Initial Vital Signs Temperature 97.7 F 12/28/22 11:14 Pulse Rate 63 12/28/22 11:14 Respiratory Rate 17 12/28/22 11:14 Blood Pressure 154/77 12/28/22 11:14 O2 Sat by Pulse Oximetry 95 12/28/22 11:14 Pain Scale Pain Intensity 0 - Physical Exam General Appearance: no apparent distress (Frail/Chronically ill appearing) Eye Exam: PERRL/EOMI, eyes nml inspection Ears, Nose, Throat Exam: normal ENT inspection, TMs normal, pharynx normal, moist mucous membranes Neck Exam: normal inspection, non-tender, supple, full range of motion, No meningismus, No mass, No Brudzinski, No Kernig's, No carotid bruit Respiratory Exam: normal breath sounds, lungs clear, airway intact, No chest tenderness, No respiratory distress Cardiovascular Exam: regular rate/rhythm, normal heart sounds, normal peripheral pulses, capillary refill <2 sec, No murmur Gastrointestinal/Abdomen Exam: soft, normal bowel sounds, No tenderness Back Exam: normal inspection, normal range of motion, No CVA tenderness, No vertebral tenderness Extremity Exam: normal inspection, normal range of motion Neurologic Exam: alert, cooperative, 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 II-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 nml as tested, sensation nml, No motor deficits Skin Exam: normal color, warm, dry Lymphatic Exam: No adenopathy SpO2 Interpretation: normal SpO2: 95 O2 Delivery: Room Air - Course Nursing assessment & vital signs reviewed: Yes EKG Interpreted by Me: RATE (NSR/Rate 66/Prolonged QTc/PVC/1st degree AV block/RBBB/No acute ST segment changes) - CT Exams Chest CT Interpretation: Discussed w/radiologist (CT chest wo contrast/COPD/R lung nodule/Atelectasis/No infiltrate) Ordered Tests: Active Orders 24 hr Category Date Time Status Classics Professor STAT Care 12/28/22 11:34 Completed EKG-ER Only STAT Care 12/28/22 11:30 Completed IV Insertion STAT Care 12/28/22 11:28 Completed CHEST WITHOUT CONTRAST [CT] Stat Exams 12/28/22 11:32 Completed CBC W DIFF Stat Lab 12/28/22 11:25 Completed CMP Stat Lab 12/28/22 11:25 Completed NT PRO BNPII Stat Lab 12/28/22 11:25 Completed PROTIME WITH INR Stat Lab 12/28/22 11:25 Completed PTT Stat Lab 12/28/22 11:25 Completed TROPONIN Q4H Lab 12/28/22 11:25 Completed TROPONIN Q4H Lab 12/28/22 11:25 Completed Lab/Rad Data: Laboratory Result Diagrams 12/28/22 11:25 12/28/22 11:25 Laboratory Results 12/28/22 12/28/22 12/28/22 Range/Units 11:45 11:25 11:25 WBC (4.0-10.5) x10^3/uL RBC (4.1-5.6) x10^6/uL Hgb (12.5-18.0) g/dL Hct (42-50) % MCV (78-100) fL MCH (26-32) pg MCHC (32-36) g/dL RDW (11.5-14.0) % Plt Count (150-450) x10^3/uL MPV (7.5-11.0) fL Gran % (36.0-66.0) % Immature Gran % (Auto) (0.00-0.4) % Nucleat RBC Rel Count (0.00-0.1) % Eos # (Auto) (0-0.5) x10^3/uL Immature Gran # (Auto) (0.00-0.03) x10^3u/L Absolute Lymphs (auto) (1.0-4.6) x10^3/uL Absolute Monos (auto) (0.0-1.3) x10^3/uL Absolute Nucleated RBC (0.00-0.01) x10^3u/L Lymphocytes % (24.0-44.0) % Monocytes % (0.0-12.0) % Eosinophils % (0.00-5.0) % Basophils % (0.0-0.4) % Absolute Granulocytes (1.4-6.9) x10^3/uL Basophils # (0-0.4) x10^3/uL PT 10.9 (9.4-12.5) SECONDS INR 1.00 (0.8-3.0) APTT 26.8 (25.1-36.5) SECONDS Sodium (137-145) mmol/L Potassium (3.5-5.1) mmol/L Chloride (98-107) mmol/L Carbon Dioxide (22-30) mmol/L Anion Gap (5-15) MEQ/L BUN (9-20) mg/dL Creatinine (0.66-1.25) mg/dL Estimated GFR ML/MIN Glucose (74-106) mg/dL Calcium (8.4-10.2) mg/dL Total Bilirubin (0.2-1.3) mg/dL AST (17-59) U/L ALT (0-50) U/L Alkaline Phosphatase (38-126) U/L Troponin I < 0.012 (0.000-0.034) ng/mL NT-Pro-B Natriuret Pep (<300) pg/mL Serum Total Protein (6.3-8.2) g/dL Albumin (3.5-5.0) g/dL Influenza Type A Ag NEGATIVE (NEGATIVE) Influenza Type B Ag NEGATIVE (NEGATIVE) RSV (PCR) NEGATIVE (NEGATIVE) SARS-CoV-2 (PCR) NEGATIVE (NEGATIVE) 12/28/22 12/28/22 Range/Units 11:25 11:25 WBC 5.8 (4.0-10.5) x10^3/uL RBC 3.43 L (4.1-5.6) x10^6/uL Hgb 10.4 L (12.5-18.0) g/dL Hct 32.3 L (42-50) % MCV 94.2 (78-100) fL MCH 30.3 (26-32) pg MCHC 32.2 (32-36) g/dL RDW 14.0 (11.5-14.0) % Plt Count 137 L (150-450) x10^3/uL MPV 12.8 H (7.5-11.0) fL Gran % 76.5 H (36.0-66.0) % Immature Gran % (Auto) 0.7 H (0.00-0.4) % Nucleat RBC Rel Count 0.0 (0.00-0.1) % Eos # (Auto) 0.12 (0-0.5) x10^3/uL Immature Gran # (Auto) 0.04 H (0.00-0.03) x10^3u/L Absolute Lymphs (auto) 0.73 L (1.0-4.6) x10^3/uL Absolute Monos (auto) 0.41 (0.0-1.3) x10^3/uL Absolute Nucleated RBC 0.00 (0.00-0.01) x10^3u/L Lymphocytes % 12.7 L (24.0-44.0) % Monocytes % 7.1 (0.0-12.0) % Eosinophils % 2.1 (0.00-5.0) % Basophils % 0.9 (0.0-0.4) % Absolute Granulocytes 4.42 (1.4-6.9) x10^3/uL Basophils # 0.05 (0-0.4) x10^3/uL PT (9.4-12.5) SECONDS INR (0.8-3.0) APTT (25.1-36.5) SECONDS Sodium 130 L (137-145) mmol/L Potassium 4.2 (3.5-5.1) mmol/L Chloride 96 L (98-107) mmol/L Carbon Dioxide 28 (22-30) mmol/L Anion Gap 10.4 (5-15) MEQ/L BUN 19 (9-20) mg/dL Creatinine 0.69 (0.66-1.25) mg/dL Estimated GFR > 60.0 ML/MIN Glucose 315 H (74-106) mg/dL Calcium 8.6 (8.4-10.2) mg/dL Total Bilirubin 0.50 (0.2-1.3) mg/dL AST 33 (17-59) U/L ALT 37 (0-50) U/L Alkaline Phosphatase 127 H (38-126) U/L Troponin I < 0.012 (0.000-0.034) ng/mL NT-Pro-B Natriuret Pep 520 (<300) pg/mL Serum Total Protein 5.9 L (6.3-8.2) g/dL Albumin 3.4 L (3.5-5.0) g/dL Influenza Type A Ag (NEGATIVE) Influenza Type B Ag (NEGATIVE) RSV (PCR) (NEGATIVE) SARS-CoV-2 (PCR) (NEGATIVE) - Progress Air Movement: fair Progress Note: 12/28/22 15:40 Nursing note and vital signs reviewed No food or housing insecurities noted Additional history per family day care worker All lab results reviewed and shared w pt/caregiver CT chest result reviewed and shared w pt/caregiver Pt stable throughout stay w good sats Counseled pt/family regarding: lab results, diagnosis, need for follow-up, rad results Medical Desision Making - Independent Historian Additional History obtained from: Environmental Health Nurse - Diagnostic Testing Radiological Interpretation: Reviewed by me, Discussed w/ radiologist - Risk of complications The pt has a mod risk of morbidity or mortality based on: Need for prescription drug management - Departure Departure Disposition: Home Clinical Impression: URI (upper respiratory infection) Condition: Stable Critical Care Time: No Referrals: JOSE ALBERTO GRAJEDA [Primary Care Provider] - Follow up/PCP as directed Instructions: Cough, Adult (DC) Additional Instructions: Start Doxycycline twice a day for 7 days Follow up with your family MD on Saturday Return to ER for worsening cough, shortness of breath, or temperature greater than 100.5 Prescriptions: Doxycycline Monohydrate 100 mg PO BID 7 Days #14 cap
[2022-12-28 12:36] LABS: INFLUENZA A NEGATIVE (NEGATIVE); INFLUENZA B NEGATIVE (NEGATIVE); RESPIRATORY SYNCTIAL VIRUS NEGATIVE (NEGATIVE); SARS-CoV-2 Xpert Express NEGATIVE (NEGATIVE)
--- NOTE | 2022-12-28 12:51 | XRAY ---
Indication: Chest pain and cough. Multiple contiguous axial images obtained through the chest without contrast. Comparison: April 25, 2015 Progressive worsening diffuse paraseptal emphysema. Again a few bilateral calcified granulomas. New mild bibasilar subsegmental atelectasis/scarring. Right posterior gutter demonstrates new 1.1 x 1.5 cm noncalcified nodule contiguous with atelectasis/scarring. No infiltrates, effusion, or pneumothorax. Heart not enlarged again with CABG surgery and scattered coronary calcifications. Aorta again mildly arteriosclerotic without aneurysm. New tiny right hilar/subcarinal calcified nodes. No pathologic mediastinal lymphadenopathy. Bony thorax again demonstrates osteopenia and sternotomy wires. Stable remote endplate fracture superior segment T8. Remote T11-L1 endplate fractures with 25-50% height loss. Limited upper abdomen now demonstrates a few bilateral renal punctate calculi not included on previous exam. Impression: 1. Worsening diffuse pulmonary emphysema. New bibasilar atelectasis/scarring and new small indeterminate right posterior gutter noncalcified nodule. 2. Incidental chronic bony findings, bilateral renal micro-calculi, and old granulomatous disease. 3. No acute cardiopulmonary abnormalities on this noncontrast exam.
[2022-12-28 13:05] VITALS: BP 151/69; PULSE 67; RESP 13
[2022-12-28 13:10] VITALS: O2SAT 95
== END 2022-12-28 13:34 | disposition home or self-care (01) ==
LOC: ED 11:13
DX: J06.9 Acute upper respiratory infection, unspecified (principal); R05.1 Acute cough; I10 Essential (primary) hypertension; E11.9 Type 2 diabetes mellitus without complications; Z79.4 Long term (current) use of insulin; Z79.01 Long term (current) use of anticoagulants; Z79.899 Other long term (current) drug therapy
CPT/HCPCS: 0241U; 36000; 36415; 71250; 80053; 83880; 84484; 85025; 85610; 85730; 93005; 93041; 99284

== ENCOUNTER 2023-02-09 20:11 | Observation (INO) | payer MEDICARE ==
--- NOTE | 2023-02-09 20:33 | ERPHSYRPT ---
- History of Present Illness Time Seen by Provider: 02/09/23 20:30 Source: patient, EMS Exam Limitations: no limitations Patient Subjective Stated Complaint: EMS states pt was just released from a hospital. 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 EMS states daughter wants pt placed in rehab for weakness. Patient was admitted at [facility] for 5 days for urinary tract infection and afterwards she was just discharged yesterday. Patient has multiple hospital admission in the last 1 year with his multiple medical problem include diabetes cerebrovascular disease hypertension history of alcohol abuse osteoarthritis history of colitis. Associated Symptoms: denies symptoms Allergies/Adverse Reactions: acetaminophen [From Percocet] Adverse Reaction (Verified 02/09/23 20:12) confusion hydromorphone [From Dilaudid] Adverse Reaction (Verified 02/09/23 20:12) confusion morphine Adverse Reaction (Verified 02/09/23 20:12) confusion oxycodone [From Percocet] Adverse Reaction (Verified 02/09/23 20:12) confusion Home Medications: Albuterol Sulfate [Albuterol Sulfate Hfa] 2 puff IH QID 10/24/20 [History] Budesonide [Budesonide Dr] 9 mg PO DAILY 10/24/20 [History] Insulin Detemir [Levemir] 9 units SQ BID 10/24/20 [History] Dronedarone Hydrochloride 400* [Multaq 400 MG] 200 mg PO BID 09/16/21 [History] Atorvastatin Calcium 40 mg PO QHS 01/01/22 [History] Tamsulosin HCl 0.4 mg [Flomax 0.4 MG] 0.8 mg PO HS 01/01/22 [History] Alpha Lipoic Acid 300 mg PO BID 10/12/22 [History] Apixaban [Eliquis] 5 mg PO BID 10/12/22 [History] Cholecalciferol (Vitamin D3) [Vitamin D3] 1 each PO WEEKLY 10/12/22 [History] Midodrine HCl [Proamatine] 10 mg PO TID 10/12/22 [History] [place]-3 Fatty Acids [[place]-3] 1 cap PO DAILY 10/12/22 [History] Psyllium Packet [Metamucil PACKET] 1 packet PO DAILY 10/12/22 [History] Aspirin EC 81 mg [Ecotrin 81 mg] 81 mg PO DAILY 12/01/22 [History] Ferrous Sulfate 325 mg [Feosol 325 mg] 1 tab PO DAILY 12/01/22 [History] Magnesium Oxide 400 mg [Mag-Ox 400] 400 mg PO DAILY 12/01/22 [History] Finasteride 5 mg [Proscar 5 MG] 5 mg PO DAILY 12/28/22 [History] Lisinopril 10 mg [Zestril 10 MG] 10 mg PO DAILY 02/09/23 [History] PANTOPRAZOLE 40 mg Tablet [Protonix 40MG Tablet] 40 mg PO DAILY 02/09/23 [History] Insulin Aspart (Niacinamide) [Fiasp 100 Unit/ml Flextouch] 1 unit SQ UD PRN 02/10/23 [History] Hx Tetanus, Diphtheria Vaccination/Date Given: Yes Hx Influenza Vaccination/Date Given: Yes Hx Pneumococcal Vaccination/Date Given: Yes Travel Risk - International Travel Have you traveled outside of the country in past 3 weeks: No - Coronavirus Screening Are you exhibiting any of the following symptoms?: No Close contact with a COVID-19 positive Pt in past 14-21 Days: No - Vaccine Status Have you recieved a Covid-19 vaccination: Yes 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 - Vaccination Dates Date of 2cond Vaccination (if applicable): 2019 - Review of Systems Constitutional: Weakness, No Fever, No Chills Eyes: No Symptoms Ears, Nose, & Throat: No Symptoms Respiratory: No Cough, No Dyspnea Cardiac: No Chest Pain, No Edema, No Syncope Abdominal/Gastrointestinal: No Abdominal Pain, No Nausea, No Vomiting, No Diarrhea Genitourinary Symptoms: No Dysuria Musculoskeletal: No Back Pain, No Neck Pain Skin: No Rash Neurological: No Dizziness, No Focal Weakness, No Sensory Changes Psychological: No Symptoms Endocrine: No Symptoms All Other Systems: Reviewed and Negative - Past Medical History Pertinent Past Medical History: Yes Neurological History: Stroke, TIA ENT History: Other Cardiac History: Coronary Artery Disease, Hypertension, Myocardial Infarction ([place]) Respiratory History: No Pertinent History Endocrine Medical History: Diabetes Type II Musculoskeletal History: Arthritis, Fractures GI Medical History: Crohns Disease, GERD History: No Pertinent History Psycho-Social History: No Pertinent History Male Reproductive Disorders: Prostate Problems Other Medical History: ANEMIA, ATAXIA, A-FIB, ATROPHY OF PANCREAS, 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, LUNG NODULES, MALNOURISHED, ORTHOSTATIC HYPOTENSION, SENSORY NEUROPATHY, VASCULAR INSUFFICIENCY OF EXTREMITIY - Past Surgical History Past Surgical History: Yes Neuro Surgical History: No Pertinent History Cardiac: CABG, Cardiac Catheterization, Cardiac Stent, Other Respiratory: No Pertinent History Gastrointestinal: Appendectomy, Other Genitourinary: No Pertinent History Musculoskeletal: Orthopedic Surgery Male Surgical History: No Pertinent History Other Surgical History: 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, intestinal resection, triple bypass - Social History Smoking Status: Former smoker How long have you smoked: years Exposure to second hand smoke: Yes Drug Use: none Patient Lives Alone: No (daughter) Significant Family History: no pertinent family hx - Nursing Vital Signs Nursing Vital Signs: Initial Vital Signs Temperature 98 F 02/09/23 20:12 Pulse Rate 75 02/09/23 20:12 Respiratory Rate 18 02/09/23 20:12 Blood Pressure 158/72 02/09/23 20:12 O2 Sat by Pulse Oximetry 96 02/09/23 20:12 Pain Scale Pain Intensity 0 - Physical Exam General Appearance: no apparent distress, alert Eye Exam: PERRL/EOMI, eyes nml inspection Ears, Nose, Throat Exam: normal ENT inspection, TMs normal, pharynx normal, moist mucous membranes Neck Exam: normal inspection, non-tender, supple, full range of motion Respiratory Exam: normal breath sounds, lungs clear, No respiratory distress Cardiovascular Exam: regular rate/rhythm, normal heart sounds, normal peripheral pulses Gastrointestinal/Abdomen Exam: soft, normal bowel sounds, No tenderness, No mass Back Exam: normal inspection, normal range of motion, No CVA tenderness, No vertebral tenderness Extremity Exam: normal inspection, normal range of motion, pelvis stable Neurologic Exam: alert, oriented x 3, cooperative, normal mood/affect, nml cerebellar function, nml station & gait, sensation nml, No motor deficits Skin Exam: normal color, warm, dry, No rash Lymphatic Exam: No adenopathy SpO2: 96 - Course Nursing assessment & vital signs reviewed: Yes Ordered Tests: Medication Summary Discontinued Medications Generic Name Dose Route Start Last Admin Trade Name Freq PRN Reason Stop Dose Admin Acetaminophen 650 mg 02/10/23 17:22 02/10/23 17:26 Acetaminophen 325 Mg Tablet PO 03/12/23 17:21 650 mg Q4H PRN PRN Administration PAIN AND/OR FEVER Albuterol Sulfate 2 puff 02/10/23 10:00 Albuterol Common Canister Inhaler IH 03/12/23 09:59 QID ELIZABETH Apixaban 5 mg 02/10/23 10:00 02/12/23 11:01 Apixaban 2.5 Mg Tablet PO 03/12/23 09:59 5 mg BID ELIZABETH Administration Aspirin 81 mg 02/10/23 10:00 02/12/23 11:01 Aspirin 81 Mg Tablet.Ec PO 03/12/23 09:59 81 mg DAILY ELIZABETH Administration Atorvastatin Calcium 40 mg 02/10/23 22:00 02/11/23 21:48 Atorvastatin Calcium 40 Mg Tablet PO 03/12/23 21:59 Not Given QHS ELIZABETH Cyanocobalamin 1,000 mcg 02/10/23 10:00 02/10/23 10:45 Cyanocobalamin 500 Mcg Tablet PO 03/12/23 09:59 Not Given DAILY ELIZABETH Dronedarone 200 mg 02/10/23 10:00 02/12/23 09:12 Dronedarone Hydrochloride 400 Mg Tablet PO 03/12/23 09:59 Not Given BID ELIZABETH Ergocalciferol 50,000 unit 02/11/23 10:00 02/11/23 10:48 Ergocalciferol (Vitamin D2) 50,000 Unit Capsule PO 03/13/23 09:59 50,000 unit Mo ELIZABETH Administration Ferrous Sulfate 325 mg 02/10/23 10:00 02/12/23 09:12 Ferrous Sulfate 325 Mg Tablet PO 03/12/23 09:59 Not Given DAILY ELIZABETH Finasteride 5 mg 02/10/23 10:00 02/12/23 09:12 Finasteride 5 Mg Tablet PO 03/12/23 09:59 Not Given DAILY ELIZABETH Fish Oil 1,000 mg 02/10/23 10:00 02/12/23 09:12 [place]-3 Fatty Acids/Fish Oil 1000 Mg Capsule PO 03/12/23 09:59 Not Given DAILY [facility] Hydralazine HCl 20 mg 02/12/23 07:43 Hydralazine Hcl 20 Mg/Ml Vial IV 03/14/23 07:42 Q4H PRN PRN HYPERTENSION Dextrose/Sodium Chloride 1,000 mls @ 60 mls/hr 02/11/23 22:00 02/11/23 21:41 Dextrose 5%-Ns Iv Solution 1000 Ml IV 03/13/23 21:59 60 mls/hr .[id number] ELIZABETH Administration Insulin Glargine 9 unit 02/10/23 10:00 02/10/23 10:10 Insulin Glargine 1 Unit SQ 03/12/23 09:59 Not Given DAILY [facility] Insulin Glargine 9 unit 02/10/23 22:00 02/12/23 11:02 Insulin Glargine 1 Unit SQ 03/12/23 21:59 9 unit BID ELIZABETH Administration Insulin Human Lispro 8 unit 02/10/23 08:00 02/12/23 09:13 Insulin Lispro 1 Unit SQ 03/12/23 07:59 Not Given BREAKFAST [facility] Insulin Human Lispro 8 unit 02/10/23 18:00 02/11/23 18:02 Insulin Lispro 1 Unit SQ 03/12/23 17:59 8 unit EVENING MEAL [facility] Administration Insulin Human Lispro 8 unit 02/10/23 12:00 02/12/23 13:36 Insulin Lispro 1 Unit SQ 03/12/23 11:59 8 unit LUNCH ELIZABETH Administration Lisinopril 10 mg 02/10/23 10:00 02/12/23 09:12 Lisinopril 10 Mg Tablet PO 03/12/23 09:59 Not Given DAILY [facility] Magnesium Oxide 400 mg 02/10/23 10:00 02/12/23 09:12 Magnesium Oxide 400 Mg Tablet PO 03/12/23 09:59 Not Given DAILY [facility] Melatonin 3 mg 02/09/23 22:28 Melatonin 3 Mg Tablet PO 03/11/23 22:27 HS PRN PRN INSOMNIA Midodrine 10 mg 02/10/23 10:00 02/12/23 09:12 Midodrine Hcl 5 Mg Tablet PO 03/12/23 09:59 Not Given TID ELIZABETH Miscellaneous Information 0 each 02/10/23 07:45 Medication Intervention 1 Each Each 03/12/23 07:44 .RN TO CHECK WITH PT [facility] Non-Formulary Medication 1 tab 02/10/23 10:00 [place]-3 Fatty Acids [[place]-3] PO 03/12/23 09:59 DAILY ELIZABETH Pantoprazole Sodium 40 mg 02/10/23 10:00 02/12/23 09:12 Protonix (Pantoprazole) 40 Mg Tablet PO 03/12/23 09:59 Not Given DAILY ELIZABETH Psyllium Hydrophilic Mucilloid 1 pkt 02/10/23 10:00 02/12/23 09:12 Psyllium 1 Pkt Packet PO 03/12/23 09:59 Not Given DAILY ELIZABETH Tamsulosin HCl 0.8 mg 02/10/23 22:00 02/11/23 21:48 Tamsulosin Hcl 0.4 Mg Cap PO 03/12/23 21:59 Not Given HS ELIZABETH Trimethoprim/Sulfamethoxazole 1 tab 02/10/23 10:00 02/12/23 09:13 Smz/Tmp Ds Tablet 1 Tablet PO 02/13/23 22:01 Not Given BID [facility] Lab/Rad Data: Laboratory Result Diagrams 02/09/23 21:15 02/09/23 21:15 Laboratory Results 02/09/23 02/09/23 02/09/23 Range/Units 21:15 21:15 21:15 WBC 7.9 (4.0-10.5) x10^3/uL RBC 3.56 L (4.1-5.6) x10^6/uL Hgb 10.7 L (12.5-18.0) g/dL Hct 32.5 L (42-50) % MCV 91.3 (78-100) fL MCH 30.1 (26-32) pg MCHC 32.9 (32-36) g/dL RDW 12.6 (11.5-14.0) % Plt Count 166 (150-450) x10^3/uL MPV 10.7 (7.5-11.0) fL Gran % 81.8 H (36.0-66.0) % Immature Gran % (Auto) 1.9 H (0.00-0.4) % Nucleat RBC Rel Count 0.0 (0.00-0.1) % Eos # (Auto) 0.10 (0-0.5) x10^3/uL Immature Gran # (Auto) 0.15 H (0.00-0.03) x10^3u/L Absolute Lymphs (auto) 0.66 L (1.0-4.6) x10^3/uL Absolute Monos (auto) 0.49 (0.0-1.3) x10^3/uL Absolute Nucleated RBC 0.00 (0.00-0.01) x10^3u/L Lymphocytes % 8.3 L (24.0-44.0) % Monocytes % 6.2 (0.0-12.0) % Eosinophils % 1.3 (0.00-5.0) % Basophils % 0.5 (0.0-0.4) % Absolute Granulocytes 6.50 (1.4-6.9) x10^3/uL Basophils # 0.04 (0-0.4) x10^3/uL Sodium 134 L (137-145) mmol/L Potassium 3.7 (3.5-5.1) mmol/L Chloride 98 (98-107) mmol/L Carbon Dioxide 31 H (22-30) mmol/L Anion Gap 8.2 (5-15) MEQ/L BUN 14 (9-20) mg/dL Creatinine 0.64 L (0.66-1.25) mg/dL Estimated GFR > 60.0 ML/MIN Glucose 202 H (74-106) mg/dL Calcium 8.6 (8.4-10.2) mg/dL Total Bilirubin 0.60 (0.2-1.3) mg/dL AST 29 (17-59) U/L ALT 33 (0-50) U/L Alkaline Phosphatase 160 H (38-126) U/L Serum Total Protein 6.0 L (6.3-8.2) g/dL Albumin 3.3 L (3.5-5.0) g/dL Urine Color Yellow (Yellow) Urine Appearance Clear (Clear) Urine pH 7.0 (4.6-8.0) Ur Specific [place] <=1.005 (1.005-1.030) Urine Protein Negative (Negative) Urine Glucose (UA) 250 A (Negative) mg/dL Urine Ketones Negative (Negative) Urine Blood Small A (Negative) Urine Nitrite Negative (Negative) Urine Bilirubin Negative (Negative) Urine Urobilinogen 0.2 (0.2) mg/dL Ur Leukocyte Esterase Negative (Negative) U Hyaline Cast (Auto) NONE SEEN (0-2) /LPF Urine Microscopic RBC 6-10 A (0-5) /HPF Urine Microscopic WBC 3-5 (0-5) /HPF Ur Epithelial Cells None Seen (None Seen) /HPF Urine Bacteria None Seen (None Seen) /HPF Urine Culture Reflexed ORDERED SEPARATELY (NO) - Progress Progress: unchanged - Departure Departure Disposition: Observation Clinical Impression: Physical debility, Weakness, IDDM (insulin dependent diabetes mellitus) Condition: Fair Critical Care Time: Yes Critical Care Time(excluding separately billable procedures): Critical 30-74 mins
[2023-02-09 21:18] LABS: BASOPHIL % 0.5 % (0.0-0.4); Basophil (Absolute #) 0.04 x10^3/uL (0-0.4); Eosinophil % 1.3 % (0.00-5.0); Hematocrit 32.5 % (42-50); Hemoglobin 10.7 g/dL (12.5-18.0); IMMATURE GRAN # 0.15 x10^3u/L (0.00-0.03); IMMATURE GRAN % 1.9 % (0.00-0.4); Lymphocyte (Absolute #) 0.66 x10^3/uL (1.0-4.6); Lymphocytes % 8.3 % (24.0-44.0); Mean Cell Volume 91.3 fL (78-100); Mean Corpuscular Hemoglobin 30.1 pg (26-32); Mean Corpuscular Hgb Concent. 32.9 g/dL (32-36); Mean Platelet Volume 10.7 fL (7.5-11.0); Monocyte (Absolute #) 0.49 x10^3/uL (0.0-1.3); Monocytes % 6.2 % (0.0-12.0); Neutrophil % 81.8 % (36.0-66.0); Platelet Count 166 x10^3/uL (150-450); Red Blood Count 3.56 x10^6/uL (4.1-5.6); Red Cell Distribution Width 12.6 % (11.5-14.0); White Blood Count 7.9 x10^3/uL (4.0-10.5)
[2023-02-09 21:26] LABS: Appearance Clear (Clear); Bacteria None Seen /HPF (None Seen); Bilirubin Negative (Negative); Blood Small (Negative); Epithelial Cells None Seen /HPF (None Seen); Glucose, Urine 250 mg/dL (Negative); Hyaline Casts NONE SEEN /LPF (0-2); Ketones Negative (Negative); Leukocyte Esterase Negative (Negative); Nitrite Negative (Negative); Protein,Urine Dip Negative (Negative); Specific Gravity <=1.005 (1.005-1.030); Urobilinogen 0.2 mg/dL (0.2)
[2023-02-09 21:29] LABS: ADD URINE CULTURE? ORDERED SEPARATELY (NO)
[2023-02-09 21:31] LABS: ALBUMIN 3.3 g/dL (3.5-5.0); ALKALINE PHOSPHATASE 160 U/L (38-126); ANION GAP 8.2 MEQ/L (5-15); BLOOD UREA NITROGEN 14 mg/dL (9-20); CHLORIDE 98 mmol/L (98-107); Calcium 8.6 mg/dL (8.4-10.2); Carbon Dioxide 31 mmol/L (22-30); Creatinine 1 0.64 mg/dL (0.66-1.25); EST GLOMERULAR FILTRATION RATE > 60.0 ML/MIN; Glucose 202 mg/dL (74-106); Potassium 3.7 mmol/L (3.5-5.1); SGOT/AST 29 U/L (17-59); SGPT/ALT 33 U/L (0-50); SODIUM 134 mmol/L (137-145)
[2023-02-09] MEDS ORDERED: MELATONIN PO PRN (22:28)
[2023-02-09] MEDS ORDERED: NON-FORMULARY ITEM (Cholecalciferol (Vitamin D3) [Vitamin D3] 1,250 MCG Capsule) PO SCH (23:30)
--- NOTE | 2023-02-09 23:33 | PCM.HP ---
History of Present Illness - Chief Complaint Chief Complaint: weakness, debility, History of Present Illness: is a 67 year old male. He is being admitted for placement to rehab. He was recently admitted for a UTI at [facility] and discharged home with his daughter, though at that time a rehab was recommended. The patient and daughter now changed their mind and wish to pursue rehab, and the option is to have this done on Saturday. The rehab is for continued deconditioning due to several medical issues including recent admissions. Has a medical history of alcohol abuse, OA, Type 2 diabetes. - Review of Systems Constitutional: Weakness Eyes: No Symptoms Ears, Nose, & Throat: No Symptoms Respiratory: No Cough, No Short Of Breath Cardiac: No Chest Pain, No Edema, No Syncope Abdominal/Gastrointestinal: No Abdominal Pain, No Nausea, No Vomiting, No Diarrhea Genitourinary Symptoms: No Dysuria Musculoskeletal: No Back Pain, No Neck Pain Skin: No Rash Neurological: No Dizziness, No Focal Weakness, No Sensory Changes Psychological: No Symptoms Endocrine: No Symptoms Hematologic/Lymphatic: No Symptoms Immunological/Allergic: No Symptoms Medications & Allergies Home Medications: Home Medication List Albuterol Sulfate [Albuterol Sulfate Hfa] 2 puff IH QID 10/24/20 [History Confirmed 02/09/23] Budesonide [Budesonide Dr] 3 mg PO DAILY 10/24/20 [History Confirmed 02/09/23] Insulin Detemir [Levemir] 9 units SQ DAILY 10/24/20 [History Confirmed 02/09/23] Dronedarone Hydrochloride 400* [Multaq 400 MG] 200 mg PO BID 09/16/21 [History Confirmed 02/09/23] Insulin Aspart (Niacinamide) [Fiasp 100 Unit/ml Vial] 8 unit SQ BREAKFAST 09/16/21 [History Confirmed 02/09/23] Insulin Aspart (Niacinamide) [Fiasp 100 Unit/ml Vial] 8 units SQ EVENING MEAL 09/16/21 [History Confirmed 02/09/23] Insulin Aspart (Niacinamide) [Fiasp 100 Unit/ml Vial] 8 units SQ LUNCH 09/16/21 [History Confirmed 02/09/23] Atorvastatin Calcium 40 mg PO QHS 01/01/22 [History Confirmed 02/09/23] Tamsulosin HCl 0.4 mg [Flomax 0.4 MG] 2 cap PO HS 01/01/22 [History Confirmed 02/09/23] Cyanocobalamin (Vitamin B-12) [Vitamin B-12] 1,000 mcg PO DAILY 01/02/22 [History Confirmed 02/09/23] Alpha Lipoic Acid 300 mg PO DAILY 10/12/22 [History Confirmed 02/09/23] Apixaban [Eliquis] 1 tab PO BID 10/12/22 [History Confirmed 02/09/23] Cholecalciferol (Vitamin D3) [Vitamin D3] 1 tab PO WEEKLY 10/12/22 [History Confirmed 02/09/23] Midodrine HCl [Proamatine] 2 tab PO TID 10/12/22 [History Confirmed 02/09/23] [place]-3 Fatty Acids [[place]-3] 1 tab PO DAILY 10/12/22 [History Confirmed 02/09/23] Psyllium Packet [Metamucil PACKET] 1 packet PO DAILY 10/12/22 [History Confirmed 02/09/23] Aspirin EC 81 mg [Ecotrin 81 mg] 1 tab PO DAILY 12/01/22 [History Confirmed 02/09/23] Ferrous Sulfate 325 mg [Feosol 325 mg] 1 tab PO DAILY 12/01/22 [History Confirmed 02/09/23] Magnesium Oxide 400 mg [Mag-Ox 400] 1 tab PO DAILY 12/01/22 [History Confirmed 02/09/23] Finasteride 5 mg [Proscar 5 MG] 1 tab PO DAILY 12/28/22 [History Confirmed 02/09/23] Lisinopril 10 mg [Zestril 10 MG] 10 mg PO DAILY 02/09/23 [History Confirmed 02/09/23] PANTOPRAZOLE 40 mg Tablet [Protonix 40MG Tablet] 40 mg PO DAILY 02/09/23 [History Confirmed 02/09/23] Sulfamethoxazole/Trimethoprim [Sulfamethoxazole-Tmp Ds Tablet] 1 each PO BID 02/09/23 [History Confirmed 02/09/23] Allergies/Adverse Reactions: Allergies Allergy/AdvReac Type Severity Reaction Status Date / Time acetaminophen [From Percocet] AdvReac Verified 02/09/23 20:12 hydromorphone [From Dilaudid] AdvReac Verified 02/09/23 20:12 morphine AdvReac Verified 02/09/23 20:12 oxycodone [From Percocet] AdvReac Verified 02/09/23 20:12 - Past Medical History Past Medical History: Yes Neurological History: Stroke, TIA ENT History: Other Cardiac History: Coronary Artery Disease, Hypertension, Myocardial Infarction ([place]) Respiratory History: No Pertinent History Endocrine Medical History: Diabetes Type II Musculoskelatal History: Arthritis, Fractures GI Medical History: Crohns Disease, GERD History: No Pertinent History Pyscho-Social History: No Pertinent History Male Reproductive Disorders: Prostate Problems Comment: ANEMIA, ATAXIA, A-FIB, ATROPHY OF PANCREAS, 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, LUNG NODULES, MALNOURISHED, ORTHOSTATIC HYPOTENSION, SENSORY NEUROPATHY, VASCULAR INSUFFICIENCY OF EXTREMITIY - Past Surgical History Past Surgical History: Yes Neuro Surgical History: No Pertinent History Cardiac History: CABG, Cardiac Catheterization, Cardiac Stent, Other Respiratory Surgery: No Pertinent History GI Surgical History: Appendectomy, Other Genitourinary Surgical Hx: No Pertinent History Musculskeletal Surgical Hx: Orthopedic Surgery Male Surgical History: No Pertinent History Other Surgical History: 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, intestinal resection, triple bypass - Social History Smoking Status: Former smoker How long have you smoked: years Exposure to second hand smoke: Yes Alcohol: None Drug Use: none Significant Family History: no pertinent family hx - Physical Exam Vital Signs: Vital Signs - 24 hr Temp Pulse Resp BP BP Pulse Ox 02/09/23 22:55 98.8 F 88 16 169/78 91 L 02/09/23 22:00 69 13 130/86 97 02/09/23 21:24 68 19 150/79 98 02/09/23 21:00 71 19 150/79 98 02/09/23 20:32 96 02/09/23 20:16 70 17 158/72 97 02/09/23 20:12 98 F 75 18 158/72 96 General Appearance: no apparent distress, alert Neurologic Exam: alert, oriented x 3, cooperative, normal mood/affect, nml cerebellar function, nml station & gait, sensation nml, No motor deficits Eye Exam: PERRL/EOMI, eyes nml inspection Ears, Nose, Throat Exam: normal ENT inspection, TMs normal, pharynx normal, moist mucous membranes Neck Exam: normal inspection, non-tender, supple, full range of motion Respiratory Exam: normal breath sounds, lungs clear, No respiratory distress Cardiovascular Exam: regular rate/rhythm, normal heart sounds, normal peripheral pulses Gastrointestinal/Abdomen Exam: soft, normal bowel sounds, No tenderness, No mass Back Exam: normal inspection, normal range of motion, No CVA tenderness, No vertebral tenderness Extremity Exam: normal inspection, normal range of motion, pelvis stable Skin Exam: normal color, warm, dry, No rash Lymphatic Exam: No adenopathy Results - Labs Lab/Micro Results: Lab Results-Last 24 Hours 02/09/23 02/09/23 02/09/23 Range/Units 21:15 21:15 21:15 WBC 7.9 (4.0-10.5) x10^3/uL RBC 3.56 L (4.1-5.6) x10^6/uL Hgb 10.7 L (12.5-18.0) g/dL Hct 32.5 L (42-50) % MCV 91.3 (78-100) fL MCH 30.1 (26-32) pg MCHC 32.9 (32-36) g/dL RDW 12.6 (11.5-14.0) % Plt Count 166 (150-450) x10^3/uL MPV 10.7 (7.5-11.0) fL Gran % 81.8 H (36.0-66.0) % Immature Gran % (Auto) 1.9 H (0.00-0.4) % Nucleat RBC Rel Count 0.0 (0.00-0.1) % Eos # (Auto) 0.10 (0-0.5) x10^3/uL Immature Gran # (Auto) 0.15 H (0.00-0.03) x10^3u/L Absolute Lymphs (auto) 0.66 L (1.0-4.6) x10^3/uL Absolute Monos (auto) 0.49 (0.0-1.3) x10^3/uL Absolute Nucleated RBC 0.00 (0.00-0.01) x10^3u/L Lymphocytes % 8.3 L (24.0-44.0) % Monocytes % 6.2 (0.0-12.0) % Eosinophils % 1.3 (0.00-5.0) % Basophils % 0.5 (0.0-0.4) % Absolute Granulocytes 6.50 (1.4-6.9) x10^3/uL Basophils # 0.04 (0-0.4) x10^3/uL Sodium 134 L (137-145) mmol/L Potassium 3.7 (3.5-5.1) mmol/L Chloride 98 (98-107) mmol/L Carbon Dioxide 31 H (22-30) mmol/L Anion Gap 8.2 (5-15) MEQ/L BUN 14 (9-20) mg/dL Creatinine 0.64 L (0.66-1.25) mg/dL Estimated GFR > 60.0 ML/MIN Glucose 202 H (74-106) mg/dL Calcium 8.6 (8.4-10.2) mg/dL Total Bilirubin 0.60 (0.2-1.3) mg/dL AST 29 (17-59) U/L ALT 33 (0-50) U/L Alkaline Phosphatase 160 H (38-126) U/L Serum Total Protein 6.0 L (6.3-8.2) g/dL Albumin 3.3 L (3.5-5.0) g/dL Urine Color Yellow (Yellow) Urine Appearance Clear (Clear) Urine pH 7.0 (4.6-8.0) Ur Specific [place] <=1.005 (1.005-1.030) Urine Protein Negative (Negative) Urine Glucose (UA) 250 A (Negative) mg/dL Urine Ketones Negative (Negative) Urine Blood Small A (Negative) Urine Nitrite Negative (Negative) Urine Bilirubin Negative (Negative) Urine Urobilinogen 0.2 (0.2) mg/dL Ur Leukocyte Esterase Negative (Negative) U Hyaline Cast (Auto) NONE SEEN (0-2) /LPF Urine Microscopic RBC 6-10 A (0-5) /HPF Urine Microscopic WBC 3-5 (0-5) /HPF Ur Epithelial Cells None Seen (None Seen) /HPF Urine Bacteria None Seen (None Seen) /HPF Urine Culture Reflexed ORDERED SEPARATELY (NO) Assessment/Plan (1) Physical debility Current Visit: No Status: Chronic Assessment & Plan: Plan for rehab admission on Saturday Continue home meds Code(s): R53.81 - OTHER MALAISE Telemedicine Encounter - Telemedicine Encounter Telemedicine Encounter: The entirety of this encounter was performed via Telemedicine"
--- NOTE | 2023-02-10 07:18 | PCM.NOTE ---
Date and Time: 02/10/23712 Subjective Assessment: is a 67 year old male with a pmhx of DM, CVA, ETOH abuse, OA, colitis, CABG, cardiac stents, [place], Crohns, anemia, and afib. Patient was brought in by daughter wishing to pursue rehab due to deconditioning r/t several medical issues and multiple hospital admissions. Most recent hospitalization was a [facility] where he was treated for a UTI, at that time placement was suggest and they had declined. They have since changed their minds and patient is being admitted for placement to rehab. Hospital records from most recent stay at [facility] have been reviewed. Patient was discharged 02/09/23 with rcs for close follow up with urology as well as PCP. Urology had suggested QID straight cath which the family was unable to maintain at home so patient now has a chronic F/C. Bactrim was initiated on discharge and prescribed for 4 days duration from 02/09/23, we will continue this here. He was also started on lisinopril during that admission. Patient is poor historian during interview. He states he is here for an operation and not sure of where he is. He denies any specific complaints, mainly states he is weak. Denies fever,cough, sob, cp, abdominal pain, JEFFERSON, dizziness, N/V/D. - Review of Systems Constitutional: Fatigue, Weakness Eyes: No Symptoms Ears, Nose, & Throat: No Symptoms Respiratory: Cough Cardiac: No Symptoms Abdominal/Gastrointestinal: No Symptoms Genitourinary Symptoms: No Symptoms Musculoskeletal: No Symptoms Neurological: No Symptoms Psychological: No Symptoms Endocrine: No Symptoms Hematologic/Lymphatic: No Symptoms Immunological/Allergic: No Symptoms Objective Exam General Appearance: no apparent distress Neurologic Exam: alert, confusion Skin Exam: pale Wound Assessment: Skin/Wound Assessment Wound/Incision Assessment Start: 02/09/23 23:02 Text: Status: Active Freq: Q6H Protocol: Document 02/10/23 05:02 AB (Rec: 02/10/23 05:45 AB [id number]) Wound Photo Photo Taken No Eye Exam: PERRL Ears, Nose, Throat Exam: normal ENT inspection, dry mucous membranes Neck Exam: normal inspection Respiratory Exam: diminished breath sounds Cardiovascular Exam: regular rate/rhythm, normal heart sounds Gastrointestinal/Abdomen Exam: soft, normal bowel sounds Extremity Exam: normal inspection Back Exam: normal inspection OBJECTIVE DATA Vital Signs: Vital Signs - 24 hr Temp Pulse Resp BP BP Pulse Ox 02/10/23 04:00 97.8 F 59 L 18 149/68 95 02/10/23 00:15 91 L 02/09/23 22:55 98.8 F 88 16 169/78 91 L 02/09/23 22:00 69 13 130/86 97 02/09/23 21:24 68 19 150/79 98 02/09/23 21:00 71 19 150/79 98 02/09/23 20:32 96 02/09/23 20:16 70 17 158/72 97 02/09/23 20:12 98 F 75 18 158/72 96 Pain Assessment - Last Documented Pain Intensity 0 Intake and Output: Intake & Output 02/07/23 02/08/23 02/09/23 02/10/23 11:59 11:59 11:59 11:59 Intake Total 100 Output Total 550 Balance -450 Weight 51.2 kg Lab Results: Lab Results-Last 24 Hours 02/09/23 02/09/23 02/09/23 Range/Units 21:15 21:15 21:15 WBC 7.9 (4.0-10.5) x10^3/uL RBC 3.56 L (4.1-5.6) x10^6/uL Hgb 10.7 L (12.5-18.0) g/dL Hct 32.5 L (42-50) % MCV 91.3 (78-100) fL MCH 30.1 (26-32) pg MCHC 32.9 (32-36) g/dL RDW 12.6 (11.5-14.0) % Plt Count 166 (150-450) x10^3/uL MPV 10.7 (7.5-11.0) fL Gran % 81.8 H (36.0-66.0) % Immature Gran % (Auto) 1.9 H (0.00-0.4) % Nucleat RBC Rel Count 0.0 (0.00-0.1) % Eos # (Auto) 0.10 (0-0.5) x10^3/uL Immature Gran # (Auto) 0.15 H (0.00-0.03) x10^3u/L Absolute Lymphs (auto) 0.66 L (1.0-4.6) x10^3/uL Absolute Monos (auto) 0.49 (0.0-1.3) x10^3/uL Absolute Nucleated RBC 0.00 (0.00-0.01) x10^3u/L Lymphocytes % 8.3 L (24.0-44.0) % Monocytes % 6.2 (0.0-12.0) % Eosinophils % 1.3 (0.00-5.0) % Basophils % 0.5 (0.0-0.4) % Absolute Granulocytes 6.50 (1.4-6.9) x10^3/uL Basophils # 0.04 (0-0.4) x10^3/uL Sodium 134 L (137-145) mmol/L Potassium 3.7 (3.5-5.1) mmol/L Chloride 98 (98-107) mmol/L Carbon Dioxide 31 H (22-30) mmol/L Anion Gap 8.2 (5-15) MEQ/L BUN 14 (9-20) mg/dL Creatinine 0.64 L (0.66-1.25) mg/dL Estimated GFR > 60.0 ML/MIN Glucose 202 H (74-106) mg/dL POC Glucometer (74 to 106) mg/dL Calcium 8.6 (8.4-10.2) mg/dL Total Bilirubin 0.60 (0.2-1.3) mg/dL AST 29 (17-59) U/L ALT 33 (0-50) U/L Alkaline Phosphatase 160 H (38-126) U/L Serum Total Protein 6.0 L (6.3-8.2) g/dL Albumin 3.3 L (3.5-5.0) g/dL Urine Color Yellow (Yellow) Urine Appearance Clear (Clear) Urine pH 7.0 (4.6-8.0) Ur Specific [place] <=1.005 (1.005-1.030) Urine Protein Negative (Negative) Urine Glucose (UA) 250 A (Negative) mg/dL Urine Ketones Negative (Negative) Urine Blood Small A (Negative) Urine Nitrite Negative (Negative) Urine Bilirubin Negative (Negative) Urine Urobilinogen 0.2 (0.2) mg/dL Ur Leukocyte Esterase Negative (Negative) U Hyaline Cast (Auto) NONE SEEN (0-2) /LPF Urine Microscopic RBC 6-10 A (0-5) /HPF Urine Microscopic WBC 3-5 (0-5) /HPF Ur Epithelial Cells None Seen (None Seen) /HPF Urine Bacteria None Seen (None Seen) /HPF Urine Culture Reflexed ORDERED SEPARATELY (NO) 02/10/23 Range/Units 04:10 WBC (4.0-10.5) x10^3/uL RBC (4.1-5.6) x10^6/uL Hgb (12.5-18.0) g/dL Hct (42-50) % MCV (78-100) fL MCH (26-32) pg MCHC (32-36) g/dL RDW (11.5-14.0) % Plt Count (150-450) x10^3/uL MPV (7.5-11.0) fL Gran % (36.0-66.0) % Immature Gran % (Auto) (0.00-0.4) % Nucleat RBC Rel Count (0.00-0.1) % Eos # (Auto) (0-0.5) x10^3/uL Immature Gran # (Auto) (0.00-0.03) x10^3u/L Absolute Lymphs (auto) (1.0-4.6) x10^3/uL Absolute Monos (auto) (0.0-1.3) x10^3/uL Absolute Nucleated RBC (0.00-0.01) x10^3u/L Lymphocytes % (24.0-44.0) % Monocytes % (0.0-12.0) % Eosinophils % (0.00-5.0) % Basophils % (0.0-0.4) % Absolute Granulocytes (1.4-6.9) x10^3/uL Basophils # (0-0.4) x10^3/uL Sodium (137-145) mmol/L Potassium (3.5-5.1) mmol/L Chloride (98-107) mmol/L Carbon Dioxide (22-30) mmol/L Anion Gap (5-15) MEQ/L BUN (9-20) mg/dL Creatinine (0.66-1.25) mg/dL Estimated GFR ML/MIN Glucose (74-106) mg/dL POC Glucometer 238 H (74 to 106) mg/dL Calcium (8.4-10.2) mg/dL Total Bilirubin (0.2-1.3) mg/dL AST (17-59) U/L ALT (0-50) U/L Alkaline Phosphatase (38-126) U/L Serum Total Protein (6.3-8.2) g/dL Albumin (3.5-5.0) g/dL Urine Color (Yellow) Urine Appearance (Clear) Urine pH (4.6-8.0) Ur Specific [place] (1.005-1.030) Urine Protein (Negative) Urine Glucose (UA) (Negative) mg/dL Urine Ketones (Negative) Urine Blood (Negative) Urine Nitrite (Negative) Urine Bilirubin (Negative) Urine Urobilinogen (0.2) mg/dL Ur Leukocyte Esterase (Negative) U Hyaline Cast (Auto) (0-2) /LPF Urine Microscopic RBC (0-5) /HPF Urine Microscopic WBC (0-5) /HPF Ur Epithelial Cells (None Seen) /HPF Urine Bacteria (None Seen) /HPF Urine Culture Reflexed (NO) Assessment/Plan (1) UTI (urinary tract infection) Current Visit: Yes Status: Acute Assessment & Plan: -Will continue Bacterim x 4 days, urine culture pending from yesterday Code(s): N39.0 - URINARY TRACT INFECTION, SITE NOT SPECIFIED (2) Physical deconditioning Current Visit: Yes Status: Acute Assessment & Plan: -Patient appears malnourished, will order nutritional consult, add ensure -PT/OT -CM/Social consult for rehab placement Code(s): R53.81 - OTHER MALAISE (3) History of alcohol abuse Current Visit: Yes Status: Acute Assessment & Plan: -noted Code(s): F10.11 - ALCOHOL ABUSE, IN REMISSION (4) Crohn's disease in remission Current Visit: No Status: Chronic Assessment & Plan: -noted Code(s): K50.90 - CROHN'S DISEASE, UNSPECIFIED, WITHOUT COMPLICATIONS (5) TIA (transient ischemic attack) Current Visit: No Status: Chronic Assessment & Plan: -noted, will continue home meds Code(s): G45.9 - TRANSIENT CEREBRAL ISCHEMIC ATTACK, UNSPECIFIED (6) Tremor Current Visit: No Status: Chronic Assessment & Plan: -resume home meds Code(s): R25.1 - TREMOR, UNSPECIFIED (7) Type 2 diabetes mellitus Current Visit: No Status: Chronic Qualifiers: Diabetes mellitus care home insulin use: with care home use Diabetes mellit complication status: with hyperglycemia Qualified Code(s): E11.65 - Type 2 diabetes mellitus with hyperglycemia; Z79.4 - residential (current) use of insulin Assessment & Plan: A1c at 8.29 -ADA diet -Continue glargine/lispro Telemedicine Encounter - Telemedicine Encounter Telemedicine Encounter: The entirety of this encounter was performed via Telemedicine"
[2023-02-10] MEDS ORDERED: MEDICATION INTERVENTION MC SCH (07:45)
[2023-02-10] MEDS ORDERED: NON-FORMULARY ITEM (Insulin Aspart (Niacinamide) [Fiasp 100 Unit/Ml Vial] 100 UNIT/ML Vial SQ SCH ×3 (08:00→18:00)
[2023-02-10 08:02] LABS: Hematocrit 35.1 % (42-50); Hemoglobin 11.3 g/dL (12.5-18.0); Mean Cell Volume 94.1 fL (78-100); Mean Corpuscular Hemoglobin 30.3 pg (26-32); Mean Corpuscular Hgb Concent. 32.2 g/dL (32-36); Mean Platelet Volume 11.9 fL (7.5-11.0); Platelet Count 145 x10^3/uL (150-450); Red Blood Count 3.73 x10^6/uL (4.1-5.6); Red Cell Distribution Width 12.7 % (11.5-14.0); White Blood Count 6.7 x10^3/uL (4.0-10.5)
[2023-02-10 08:15] LABS: ALBUMIN 3.3 g/dL (3.5-5.0); ALKALINE PHOSPHATASE 162 U/L (38-126); ANION GAP 8.5 MEQ/L (5-15); BLOOD UREA NITROGEN 12 mg/dL (9-20); CHLORIDE 100 mmol/L (98-107); Calcium 8.8 mg/dL (8.4-10.2); Carbon Dioxide 30 mmol/L (22-30); Creatinine 1 0.55 mg/dL (0.66-1.25); EST GLOMERULAR FILTRATION RATE > 60.0 ML/MIN; Glucose 178 mg/dL (74-106); Potassium 3.9 mmol/L (3.5-5.1); SGOT/AST 25 U/L (17-59); SGPT/ALT 31 U/L (0-50); SODIUM 135 mmol/L (137-145)
[2023-02-10] MEDS ORDERED: OMEGA PO SCH (10:00)
[2023-02-10] MEDS ORDERED: NON-FORMULARY ITEM (Cyanocobalamin (Vitamin B-12) [Vitamin B-12] 1,000 MCG Capsule) PO SCH (10:00)
[2023-02-10] MEDS ORDERED: FATTY ACIDS PO SCH (10:00)
[2023-02-10] MEDS ORDERED: NON-FORMULARY ITEM (Insulin Detemir [Levemir] 100 UNIT/ML Vial) SQ SCH (10:00)
[2023-02-10] MEDS ORDERED: Vitamin B-12 500 MCG PO SCH (10:00)
[2023-02-10] MEDS ORDERED: NON-FORMULARY ITEM (Budesonide [Budesonide Dr] 3 MG Capdr...Er) PO SCH (10:00)
[2023-02-10] MEDS ORDERED: NON-FORMULARY ITEM (Apixaban [Eliquis] 5 MG Tablet) PO SCH (10:00)
[2023-02-10] MEDS ORDERED: SULFAMETHOXAZOLE PO SCH (10:00)
[2023-02-10] MEDS ORDERED: ALPHA LIPOIC ACID 300 MG PO SCH (10:00)
[2023-02-10] MEDS ORDERED: NON-FORMULARY ITEM (Psyllium Packet*** [Metamucil Packet***] 1 PKT Packet) PO SCH (10:00)
[2023-02-10] MEDS ORDERED: Lantus Insulin SQ SCH (10:00)
[2023-02-10] MEDS ORDERED: VENTOLIN COMMON CANISTER IH SCH (10:00)
[2023-02-10] MEDS ORDERED: TRIMETHOPRIM PO SCH (10:00)
[2023-02-10] MEDS: ELIQUIS 2.5 MG TABLET PO SCH ×2 (10:11→21:40)
[2023-02-10] MEDS: FISH OIL 1,000 MG CAPSULE PO SCH (10:11)
[2023-02-10] MEDS: ECOTRIN 81 MG PO SCH (10:11)
[2023-02-10] MEDS: Protonix 40MG Tablet PO SCH (10:12)
[2023-02-10] MEDS: Multaq 400 MG PO SCH ×2 (10:12→21:41)
[2023-02-10] MEDS: BACTRIM DS TABLET PO SCH ×2 (10:12→21:40)
[2023-02-10] MEDS: FEOSOL 325 MG PO SCH (10:12)
[2023-02-10] MEDS: Zestril 10 MG PO SCH (10:12)
[2023-02-10] MEDS: MAG-OX 400 PO SCH (10:12)
[2023-02-10] MEDS: HUMALOG SQ SCH ×3 (10:13→17:26)
[2023-02-10] MEDS: PROAMATINE PO SCH ×3 (10:13→21:53)
[2023-02-10] MEDS: Metamucil PACKET PO SCH (10:22)
[2023-02-10] MEDS: Proscar 5 MG PO SCH (10:22)
[2023-02-10] MEDS ORDERED: TYLENOL 325 MG PO PRN (17:22)
[2023-02-10] MEDS: Flomax 0.4 MG PO SCH (21:40)
[2023-02-10] MEDS: LIPITOR 40MG PO SCH (21:40)
[2023-02-10] MEDS: Lantus Insulin SQ SCH (21:52)
[2023-02-10] MEDS ORDERED: NON-FORMULARY ITEM (Atorvastatin Calcium [Atorvastatin Calcium] 20 MG Tablet) PO SCH (22:00)
[2023-02-11 04:14] LABS: Hematocrit 33.6 % (42-50); Hemoglobin 10.8 g/dL (12.5-18.0); Mean Cell Volume 94.4 fL (78-100); Mean Corpuscular Hemoglobin 30.3 pg (26-32); Mean Corpuscular Hgb Concent. 32.1 g/dL (32-36); Mean Platelet Volume 11.7 fL (7.5-11.0); Platelet Count 150 x10^3/uL (150-450); Red Blood Count 3.56 x10^6/uL (4.1-5.6); White Blood Count 7.2 x10^3/uL (4.0-10.5)
[2023-02-11 04:29] LABS: ALBUMIN 3.1 g/dL (3.5-5.0); ALKALINE PHOSPHATASE 152 U/L (38-126); ANION GAP 9.4 MEQ/L (5-15); BLOOD UREA NITROGEN 15 mg/dL (9-20); CHLORIDE 103 mmol/L (98-107); Calcium 8.7 mg/dL (8.4-10.2); Carbon Dioxide 28 mmol/L (22-30); Creatinine 1 0.65 mg/dL (0.66-1.25); EST GLOMERULAR FILTRATION RATE > 60.0 ML/MIN; Glucose 137 mg/dL (74-106); Potassium 3.8 mmol/L (3.5-5.1); SGOT/AST 23 U/L (17-59); SGPT/ALT 27 U/L (0-50); SODIUM 137 mmol/L (137-145); Total Protein 5.7 g/dL (6.3-8.2)
[2023-02-11] MEDS: HUMALOG SQ SCH ×3 (07:34→18:02)
[2023-02-11] MEDS ORDERED: VITAMIN D2 PO SCH (10:00)
[2023-02-11] MEDS: MAG-OX 400 PO SCH (10:43)
[2023-02-11] MEDS: ECOTRIN 81 MG PO SCH (10:43)
[2023-02-11] MEDS: Multaq 400 MG PO SCH ×2 (10:43→21:49)
[2023-02-11] MEDS: Protonix 40MG Tablet PO SCH (10:43)
[2023-02-11] MEDS: FEOSOL 325 MG PO SCH (10:45)
[2023-02-11] MEDS: BACTRIM DS TABLET PO SCH ×2 (10:45→21:48)
[2023-02-11] MEDS: ELIQUIS 2.5 MG TABLET PO SCH ×2 (10:45→21:48)
[2023-02-11] MEDS: FISH OIL 1,000 MG CAPSULE PO SCH (10:46)
[2023-02-11] MEDS: Zestril 10 MG PO SCH (10:47)
[2023-02-11] MEDS: Proscar 5 MG PO SCH (10:48)
[2023-02-11] MEDS: PROAMATINE PO SCH ×3 (10:48→21:49)
[2023-02-11] MEDS: Metamucil PACKET PO SCH (11:02)
[2023-02-11] MEDS: Lantus Insulin SQ SCH ×2 (11:02→21:40)
--- NOTE | 2023-02-11 11:05 | PCM.NOTE ---
Date and Time: 02/11/23 1059 Subjective Assessment: is a 67 year old male with a pmhx of DM, CVA, ETOH abuse, OA, colitis, CABG, cardiac stents, [place], Crohns, anemia, and afib. Patient was brought in by daughter wishing to pursue rehab due to deconditioning r/t several medical issues and multiple hospital admissions. Most recent hospitalization was a [facility] where he was treated for a UTI, at that time placement was suggested and family had declined. They have since changed their minds and patient is being admitted for placement to rehab. Hospital records from most recent stay at [facility] have been reviewed. Patient was discharged 02/09/23 with rcs for close follow up with urology as well as PCP. Urology had suggested QID straight cath which the family was unable to maintain at home so patient now has a chronic F/C. Bactrim was initiated on discharge and prescribed for 4 days duration from 02/09/23, we will continue this here. He was also started on lisinopril during that admission. Patient is poor historian. He is aware he is weak and is even needing help to eat. Urine culture is negative. Pt states he is coughing. PEr pt and daughter he was on nectar thickened liquids and his PCP did not want him to continue this as he may become dehydrated from not wanting to drink as much. Did not witness any coughing with eating food this morning. Will reevaluate today with ST and barium swallow eval. Case management working on placement. He denies any other concerns at this time. - Review of Systems Constitutional: Weakness, No Fever, No Chills Eyes: No Symptoms Ears, Nose, & Throat: No Symptoms Respiratory: Cough, No Short Of Breath Cardiac: No Chest Pain, No Edema, No Syncope Abdominal/Gastrointestinal: No Abdominal Pain, No Nausea, No Vomiting, No Diar rabia Genitourinary Symptoms: No Dysuria Musculoskeletal: No Back Pain, No Neck Pain Skin: No Rash Neurological: No Dizziness, No Focal Weakness, No Sensory Changes Psychological: No Symptoms Endocrine: No Symptoms Hematologic/Lymphatic: No Symptoms Immunological/Allergic: No Symptoms Objective Exam General Appearance: no apparent distress, alert, cachetic Neurologic Exam: alert, oriented x 3, cooperative, normal mood/affect, nml cerebellar function, sensation nml, No motor deficits Skin Exam: normal color, warm, dry Eye Exam: PERRL, EOMI, eyes nml inspection Ears, Nose, Throat Exam: normal ENT inspection, pharynx normal, moist mucous membranes Neck Exam: normal inspection, non-tender, supple, full range of motion Respiratory Exam: normal breath sounds, lungs clear, No respiratory distress Cardiovascular Exam: regular rate/rhythm, normal heart sounds Gastrointestinal/Abdomen Exam: soft, No tenderness, No mass Extremity Exam: normal inspection, normal range of motion Back Exam: normal inspection, normal range of motion, No CVA tenderness, No vertebral tenderness Male Genitalia Exam: deferred Rectal Exam: deferred OBJECTIVE DATA Vital Signs: Vital Signs - 24 hr Temp Pulse Resp BP Pulse Ox 02/11/23 10:22 97.8 F 68 17 115/66 90 L 02/11/23 06:54 97.7 F 62 17 143/65 93 L 02/11/23 04:00 97.7 F 65 16 125/67 90 L 02/10/23 23:33 97.7 F 62 18 123/60 93 L 02/10/23 19:43 98.9 F 64 18 113/57 92 L 02/10/23 16:00 98.0 F 89 18 125/65 92 L 02/10/23 12:00 97.3 F 73 17 113/60 94 L Pain Assessment - Last Documented Pain Intensity 0 Intake and Output: Intake & Output 02/08/23 02/09/23 02/10/23 02/11/23 11:59 11:59 11:59 11:59 Intake Total 160 1160 Output Total 550 750 Balance -390 410 Weight 51.2 kg 49.9 kg Lab Results: Lab Results-Last 24 Hours 02/10/23 02/10/23 02/10/23 Range/Units 12:07 16:35 21:39 WBC (4.0-10.5) x10^3/uL RBC (4.1-5.6) x10^6/uL Hgb (12.5-18.0) g/dL Hct (42-50) % MCV (78-100) fL MCH (26-32) pg MCHC (32-36) g/dL RDW (11.5-14.0) % Plt Count (150-450) x10^3/uL MPV (7.5-11.0) fL Sodium (137-145) mmol/L Potassium (3.5-5.1) mmol/L Chloride (98-107) mmol/L Carbon Dioxide (22-30) mmol/L Anion Gap (5-15) MEQ/L BUN (9-20) mg/dL Creatinine (0.66-1.25) mg/dL Estimated GFR ML/MIN Glucose (74-106) mg/dL POC Glucometer 179 H 268 H 116 H (74 to 106) mg/dL Calcium (8.4-10.2) mg/dL Total Bilirubin (0.2-1.3) mg/dL AST (17-59) U/L ALT (0-50) U/L Alkaline Phosphatase (38-126) U/L Serum Total Protein (6.3-8.2) g/dL Albumin (3.5-5.0) g/dL 02/11/23 02/11/23 02/11/23 Range/Units 04:07 04:07 06:50 WBC 7.2 (4.0-10.5) x10^3/uL RBC 3.56 L (4.1-5.6) x10^6/uL Hgb 10.8 L (12.5-18.0) g/dL Hct 33.6 L (42-50) % MCV 94.4 (78-100) fL MCH 30.3 (26-32) pg MCHC 32.1 (32-36) g/dL RDW 13.0 (11.5-14.0) % Plt Count 150 (150-450) x10^3/uL MPV 11.7 H (7.5-11.0) fL Sodium 137 (137-145) mmol/L Potassium 3.8 (3.5-5.1) mmol/L Chloride 103 (98-107) mmol/L Carbon Dioxide 28 (22-30) mmol/L Anion Gap 9.4 (5-15) MEQ/L BUN 15 (9-20) mg/dL Creatinine 0.65 L (0.66-1.25) mg/dL Estimated GFR > 60.0 ML/MIN Glucose 137 H (74-106) mg/dL POC Glucometer 202 H (74 to 106) mg/dL Calcium 8.7 (8.4-10.2) mg/dL Total Bilirubin 0.60 (0.2-1.3) mg/dL AST 23 (17-59) U/L ALT 27 (0-50) U/L Alkaline Phosphatase 152 H (38-126) U/L Serum Total Protein 5.7 L (6.3-8.2) g/dL Albumin 3.1 L (3.5-5.0) g/dL Multi-Disciplinary Progress Notes: Multi-Disciplinary Progress Notes 02/11/23 10:15 Case Management Note by Renate Haines S/W PATIENT AND HE IS REQUESTING PLACEMENT FOR SHORT TERM REHAB STAY. FIRST CHOICE IS [facility] AND 2ND IS [facility]. OBTAINING PT/OT EVAL. SPOKE WITH [facility] AND WILL BE SENDING REFERRAL SOON PT/OT REFERRAL IS COMPLETE. THEY ARE AWARE THAT PATIENT RECENTLY DISCHARGED FOR[facility]. Initialized on 02/11/23 10:15 - END OF NOTE Assessment/Plan (1) UTI (urinary tract infection) Current Visit: Yes Status: Acute Assessment & Plan: -Will continue Bactrim x 4 days, - urine culture negative this visit- continue bactrim - Willams in place Code(s): N39.0 - URINARY TRACT INFECTION, SITE NOT SPECIFIED (2) Cough Current Visit: Yes Status: Acute Assessment & Plan: - modified barium swallow - ST evaluation - Lungs sounds clear - Previous evals per ST pt was on nectar thick liquids. - Daughter does not feel he does not need to be on thickend liquids any longer. Code(s): R05.9 - COUGH, UNSPECIFIED (3) History of alcohol abuse Current Visit: Yes Status: Acute Assessment & Plan: - noted Code(s): F10.11 - ALCOHOL ABUSE, IN REMISSION (4) Malnutrition of mild degree Current Visit: Yes Status: Acute Assessment & Plan: - 2:2 hx of ETOH abuse, physical deconditioning - Nutritional consult Code(s): E44.1 - MILD PROTEIN-CALORIE MALNUTRITION (5) Physical deconditioning Current Visit: Yes Status: Acute Assessment & Plan: -Patient appears malnourished, will order nutritional consult, add ensure -PT/OT -CM/Social consult for rehab placement Code(s): R53.81 - OTHER MALAISE (6) Crohn's disease in remission Current Visit: No Status: Chronic Assessment & Plan: -noted Code(s): K50.90 - CROHN'S DISEASE, UNSPECIFIED, WITHOUT COMPLICATIONS (7) H/O TIA (transient ischemic attack) and stroke Current Visit: No Status: Chronic Assessment & Plan: -noted, will continue home meds Code(s): Z86.73 - PRSNL HX OF TIA (TIA), AND CEREB INFRC W/O RESID DEFICITS (8) Tremor Current Visit: No Status: Chronic Assessment & Plan: -resume home meds Code(s): R25.1 - TREMOR, UNSPECIFIED (9) Type 2 diabetes mellitus Current Visit: No Status: Chronic Qualifiers: Diabetes mellitus terminal press operator insulin use: with terminal press operator use Diabetes mellitus complication status: with hyperglycemia Qualified Code(s): E11.65 - Type 2 diabetes mellitus with hyperglycemia; Z79.4 - oil heaterman (current) use of insulin Assessment & Plan: A1c at 8.29 - Uncontrolled -ADA diet -Continue glargine/lispro VTE: Eliquis PPI: Pantoprazole Code status: Full D/C plan 1-2 days- when placement ready Next of kin: Grace Kaplan [phone]
--- NOTE | 2023-02-11 13:42 | XRAY ---
Indication: Coughing when drinking. Modified barium swallow study was performed by the Department of speech therapy with fluoroscopic assistance provided. Patient ingested multiple consistencies of liquids. Full report and recommendations will be reported separately. 57 seconds fluoroscopy used.
[2023-02-11] MEDS: Flomax 0.4 MG PO SCH (21:48)
[2023-02-11] MEDS: LIPITOR 40MG PO SCH (21:48)
[2023-02-11] MEDS ORDERED: Dextrose 5%-NS IV Solution 1000 ML 1,000 ML IV SCH (22:00)
[2023-02-12 04:53] LABS: Hematocrit 32.5 % (42-50); Hemoglobin 10.6 g/dL (12.5-18.0); Mean Cell Volume 92.6 fL (78-100); Mean Corpuscular Hemoglobin 30.2 pg (26-32); Mean Corpuscular Hgb Concent. 32.6 g/dL (32-36); Mean Platelet Volume 11.9 fL (7.5-11.0); Platelet Count 158 x10^3/uL (150-450); Red Blood Count 3.51 x10^6/uL (4.1-5.6); White Blood Count 6.9 x10^3/uL (4.0-10.5)
[2023-02-12 05:11] LABS: ALKALINE PHOSPHATASE 150 U/L (38-126); ANION GAP 7.6 MEQ/L (5-15); BLOOD UREA NITROGEN 12 mg/dL (9-20); CHLORIDE 103 mmol/L (98-107); Calcium 8.5 mg/dL (8.4-10.2); Carbon Dioxide 29 mmol/L (22-30); Creatinine 1 0.62 mg/dL (0.66-1.25); EST GLOMERULAR FILTRATION RATE > 60.0 ML/MIN; Glucose 193 mg/dL (74-106); Potassium 3.8 mmol/L (3.5-5.1); SGOT/AST 21 U/L (17-59); SGPT/ALT 24 U/L (0-50); SODIUM 135 mmol/L (137-145); Total Protein 5.5 g/dL (6.3-8.2)
[2023-02-12 05:13] VITALS: O2SAT 96
[2023-02-12] MEDS ORDERED: APRESOLINE 20 MG/ML INJ IV PRN (07:43)
[2023-02-12 07:53] VITALS: PULSE 65; RESP 17
[2023-02-12] MEDS: MAG-OX 400 PO SCH (09:12)
[2023-02-12] MEDS: Protonix 40MG Tablet PO SCH (09:12)
[2023-02-12] MEDS: PROAMATINE PO SCH (09:12)
[2023-02-12] MEDS: Multaq 400 MG PO SCH (09:12)
[2023-02-12] MEDS: Metamucil PACKET PO SCH (09:12)
[2023-02-12] MEDS: Proscar 5 MG PO SCH (09:12)
[2023-02-12] MEDS: FISH OIL 1,000 MG CAPSULE PO SCH (09:12)
[2023-02-12] MEDS: FEOSOL 325 MG PO SCH (09:12)
[2023-02-12] MEDS: Zestril 10 MG PO SCH (09:12)
[2023-02-12] MEDS: HUMALOG SQ SCH ×2 (09:13→13:36)
[2023-02-12] MEDS: BACTRIM DS TABLET PO SCH (09:13)
--- NOTE | 2023-02-12 10:08 | PCM.DS ---
Discharge Summary Date of Admission: 02/09/23 22:25 Date of Discharge: 02/12/23 Admitting Physician: CHRISTINA JOSE MD Consults: Consults on Case 02/11/23 11:19 Nutritional Consult ROUTINE Primary Care Provider: JOSE ALBERTO GRAJEDA Allergies Allergies acetaminophen [From Percocet] Adverse Reaction (Verified 02/09/23 20:12) confusion hydromorphone [From Dilaudid] Adverse Reaction (Verified 02/09/23 20:12) confusion morphine Adverse Reaction (Verified 02/09/23 20:12) confusion oxycodone [From Percocet] Adverse Reaction (Verified 02/09/23 20:12) confusion Hospital Summary - Hospital Course Hospital Course: is a 67 year old male with a pmhx of DM, CVA, ETOH abuse, OA, colitis, CABG, cardiac stents, NM, Crohns, anemia, and afib. Patient was brought in by daughter wishing to pursue rehab due to deconditioning r/t several medical issues and multiple hospital admissions. Most recent hospitalization was a [facility] where he was treated for a UTI, at that time placement was suggested and family had declined. They have since changed their minds and patient is being admitted for placement to rehab. Hospital records from most recent stay at [facility] have been reviewed. Patient was discharged 02/09/23 with rcs for close follow up with urology as well as PCP. Urology had suggested QID straight cath which the family was unable to maintain at home so patient now has a chronic F/C. Bactrim was initiated on discharge and prescribed for 4 days duration from 02/09/23, we will continue this here. He was also started on lisinopril during that admission. Patient is poor historian. He is aware he is weak and is even needing help to eat. Urine culture is negative. Pt states he is coughing. Per pt and daughter he was on nectar thickened liquids and his PCP did not want him to continue this as he may become dehydrated from not wanting to drink as much. Did not witness any coughing with eating food this morning. Barium swallow eval completed and pt is aspirating with all foods and liquids. Discussed with pt and family. After explaining findings with son yesterday he brought in friend yary and jiane knowing pt was npo. Discussed options such as peg tube and daughter refused as she does not want pt off blood thinner. Daughter explained it was up to pt as to what he wants to do and he has decided he wants to eat regular food. He explained, " If I tomorrow then I do, I just want to eat regular food." Pt and family made aware of risk including pneumonia and from aspiration. Pt has been accepted at [facility]. Pt denies any further concerns at this time. - Vitals & Intake/Output Vital Signs: Vital Signs Temperature 97.1 F 02/12/23 07:53 Pulse Rate 65 02/12/23 07:53 Respiratory Rate 17 02/12/23 07:53 Blood Pressure 190/81 02/12/23 07:53 O2 Sat by Pulse Oximetry 96 02/12/23 07:53 Intake & Output: Intake & Output 02/09/23 02/10/23 02/11/23 02/12/23 11:59 11:59 11:59 11:59 Intake Total 160 1160 433 Output Total 550 750 400 Balance -390 410 33 Weight 51.2 kg 49.9 kg - Lab Result Diagrams: 02/12/23 04:24 02/12/23 04:24 Lab Results-Last 24 Hrs: Lab Results-Last 24 Hours 02/11/23 02/11/23 02/11/23 Range/Units 11:25 16:14 17:54 WBC (4.0-10.5) x10^3/uL RBC (4.1-5.6) x10^6/uL Hgb (12.5-18.0) g/dL Hct (42-50) % MCV (78-100) fL MCH (26-32) pg MCHC (32-36) g/dL RDW (11.5-14.0) % Plt Count (150-450) x10^3/uL MPV (7.5-11.0) fL Sodium (137-145) mmol/L Potassium (3.5-5.1) mmol/L Chloride (98-107) mmol/L Carbon Dioxide (22-30) mmol/L Anion Gap (5-15) MEQ/L BUN (9-20) mg/dL Creatinine (0.66-1.25) mg/dL Estimated GFR ML/MIN Glucose (74-106) mg/dL POC Glucometer 242 H 299 H 307 H (74 to 106) mg/dL Calcium (8.4-10.2) mg/dL Total Bilirubin (0.2-1.3) mg/dL AST (17-59) U/L ALT (0-50) U/L Alkaline Phosphatase (38-126) U/L Serum Total Protein (6.3-8.2) g/dL Albumin (3.5-5.0) g/dL 02/11/23 02/12/23 02/12/23 Range/Units 21:10 04:24 04:24 WBC 6.9 (4.0-10.5) x10^3/uL RBC 3.51 L (4.1-5.6) x10^6/uL Hgb 10.6 L (12.5-18.0) g/dL Hct 32.5 L (42-50) % MCV 92.6 (78-100) fL MCH 30.2 (26-32) pg MCHC 32.6 (32-36) g/dL RDW 13.0 (11.5-14.0) % Plt Count 158 (150-450) x10^3/uL MPV 11.9 H (7.5-11.0) fL Sodium 135 L (137-145) mmol/L Potassium 3.8 (3.5-5.1) mmol/L Chloride 103 (98-107) mmol/L Carbon Dioxide 29 (22-30) mmol/L Anion Gap 7.6 (5-15) MEQ/L BUN 12 (9-20) mg/dL Creatinine 0.62 L (0.66-1.25) mg/dL Estimated GFR > 60.0 ML/MIN Glucose 193 H (74-106) mg/dL POC Glucometer 205 H (74 to 106) mg/dL Calcium 8.5 (8.4-10.2) mg/dL Total Bilirubin 0.50 (0.2-1.3) mg/dL AST 21 (17-59) U/L ALT 24 (0-50) U/L Alkaline Phosphatase 150 H (38-126) U/L Serum Total Protein 5.5 L (6.3-8.2) g/dL Albumin 3.0 L (3.5-5.0) g/dL 10/10/23 Range/Units 07:48 WBC (4.0-10.5) x10^3/uL RBC (4.1-5.6) x10^6/uL Hgb (12.5-18.0) g/dL Hct (42-50) % MCV (78-100) fL MCH (26-32) pg MCHC (32-36) g/dL RDW (11.5-14.0) % Plt Count (150-450) x10^3/uL MPV (7.5-11.0) fL Sodium (137-145) mmol/L Potassium (3.5-5.1) mmol/L Chloride (98-107) mmol/L Carbon Dioxide (22-30) mmol/L Anion Gap (5-15) MEQ/L BUN (9-20) mg/dL Creatinine (0.66-1.25) mg/dL Estimated GFR ML/MIN Glucose (74-106) mg/dL POC Glucometer 200 H (74 to 106) mg/dL Calcium (8.4-10.2) mg/dL Total Bilirubin (0.2-1.3) mg/dL AST (17-59) U/L ALT (0-50) U/L Alkaline Phosphatase (38-126) U/L Serum Total Protein (6.3-8.2) g/dL Albumin (3.5-5.0) g/dL Micro Results-Entire Visit: Microbiology 02/09/23 21:15 Urine Culture - Final Catherized NO GROWTH Accuchecks Date 02/12/23 Date 02/11/23 Date 02/11/23 Date 02/11/23 Time 07:52 Time 16:19 Time 11:46 - Radiology Exams Ordered Rad Exams-Entire Visit: Radiology Procedures Category Date Time Status MODIFIED BARIUM SWALLOW EXAM Routine Exams 02/11/23 11:04 Completed - Procedures and Test Procedures and Tests throughout Hospitalization: Therapy Orders & Screens 02/09/23 23:02 OT Screen per Nursing Assess ONCE Comment: Protocol Order Physician Instructions: Greater than 3 points order OT Admission Screening Reason For Exam: Triggered on Admission Diagnosis: weakness, debility, Open Wound/Cellutlitis/Pressure Ulcers: Yes Acute Fx/ORIF/Change in wt bearing status: No Severe MUSCULOSKELETAL pain: No ADL Dysfunction: Yes Acute CVA w/Hemiparesis/Hemiplegia: No Decreased Functional Mobility/Strength: Yes Sprain/Strain: No Acute Post-op Mobility Dysfunction: No Total Points: 9 PT Screen per Nursing Assess ONCE Comment: Protocol Order Physician Instructions: Greater than 3 points order PT Admission Screenin Reason For Exam: Triggered on Admission Diagnosis: weakness, debility, Open Wound/Cellutlitis/Pressure Ulcers: Yes Acute Fx/ORIF/Change in wt bearing status: No Severe MUSCULOSKELETAL pain: No ADL Dysfunction: Yes Acute CVA w/Hemiparesis/Hemiplegia: No Decreased Functional Mobility/Strength: Yes Sprain/Strain: No Acute Post-op Mobility Dysfunction: No Total Points: 9 02/10/23 00:15 Respiratory Therapy Assessment DAILY Comment: Diagnosis: weakness, debility, 02/11/23 08:00 Speech Therapy Eval & Treat [ST Eval & Treat (MD Order)] .as ordered Comment: Physician Instructions: Reason For Exam: Evaluate: Yes Treat: Yes Reason for Eval: coughing with oral intake Diagnosis: weakness, debility, 02/11/23 09:04 PT Eval & Treat ( Order) ONCE Reason for Eval:: WEAKNESS- DEBILITY Diagnosis: weakness, debility, 02/11/23 09:28 OT Eval and Treat (MD Order) ONCE Comment: Physician Instructions: Reason For Exam: WEAKNESS Evaluate: Yes Treat: Yes Diagnosis: weakness, debility, Discharge Exam General Appearance: no apparent distress, alert, cachetic Neurologic Exam: alert, oriented x 3, cooperative, normal mood/affect, nml cerebellar function, sensation nml, No motor deficits Eye Exam: PERRL, EOMI, eyes nml inspection Ears, Nose, Throat Exam: normal ENT inspection, pharynx normal, moist mucous membranes Neck Exam: normal inspection, non-tender, supple, full range of motion Respiratory Exam: normal breath sounds, lungs clear, No respiratory distress Cardiovascular Exam: regular rate/rhythm, normal heart sounds Gastrointestinal/Abdomen Exam: soft, No tenderness, No mass Male Genitalia Exam: deferred Rectal Exam: deferred Back Exam: normal inspection, normal range of motion, No CVA tenderness, No vertebral tenderness Extremity Exam: normal inspection, normal range of motion Skin Exam: normal color, warm, dry, other (multiple brusies in various stages of healing of BL arms) Final Diagnosis/Problem List - Final Discharge Diagnosis/Problem (1) UTI (urinary tract infection) Current Visit: Yes Status: Acute Code(s): N39.0 - URINARY TRACT INFECTION, SITE NOT SPECIFIED (2) Cough Current Visit: Yes Status: Acute Code(s): R05.9 - COUGH, UNSPECIFIED (3) History of alcohol abuse Current Visit: Yes Status: Acute Code(s): F10.11 - ALCOHOL ABUSE, IN REMISSION (4) Malnutrition of mild degree Current Visit: Yes Status: Acute Code(s): E44.1 - MILD PROTEIN-CALORIE MALNUTRITION (5) Physical deconditioning Current Visit: Yes Status: Acute Code(s): R53.81 - OTHER MALAISE (6) Crohn's disease in remission Current Visit: No Status: Chronic Code(s): K50.90 - CROHN'S DISEASE, UNSPECIFIED, WITHOUT COMPLICATIONS (7) H/O TIA (transient ischemic attack) and stroke Current Visit: No Status: Chronic Code(s): Z86.73 - PRSNL HX OF TIA (TIA), AND CEREB INFRC W/O RESID DEFICITS (8) Tremor Current Visit: No Status: Chronic Code(s): R25.1 - TREMOR, UNSPECIFIED (9) Type 2 diabetes mellitus Current Visit: No Status: Chronic Assessment & Plan: (1) UTI (urinary tract infection) Current Visit: Yes Status: Acute Assessment & Plan: -Will continue Bactrim x 4 days, - urine culture negative this visit- continue bactrim - Willams in place Code(s): N39.0 - URINARY TRACT INFECTION, SITE NOT SPECIFIED (2) Cough Current Visit: Yes Status: Acute Assessment & Plan: - modified barium swallow - ST evaluation - Lungs sounds clear - Previous evals per ST pt was on nectar thick liquids. - Daughter does not feel he does not need to be on thickend liquids any longer. Code(s): R05.9 - COUGH, UNSPECIFIED (3) History of alcohol abuse Current Visit: Yes Status: Acute Assessment & Plan: - noted Code(s): F10.11 - ALCOHOL ABUSE, IN REMISSION (4) Malnutrition of mild degree Current Visit: Yes Status: Acute Assessment & Plan: - 2:2 hx of ETOH abuse, physical deconditioning - Nutritional consult Code(s): E44.1 - MILD PROTEIN-CALORIE MALNUTRITION (5) Physical deconditioning Current Visit: Yes Status: Acute Assessment & Plan: -Patient appears malnourished, will order nutritional consult, add ensure -PT/OT -CM/Social consult for rehab placement Code(s): R53.81 - OTHER MALAISE (6) Crohn's disease in remission Current Visit: No Status: Chronic Assessment & Plan: -noted Code(s): K50.90 - CROHN'S DISEASE, UNSPECIFIED, WITHOUT COMPLICATIONS (7) H/O TIA (transient ischemic attack) and stroke Current Visit: No Status: Chronic Assessment & Plan: -noted, will continue home meds Code(s): Z86.73 - PRSNL HX OF TIA (TIA), AND CEREB INFRC W/O RESID DEFICITS (8) Tremor Current Visit: No Status: Chronic Assessment & Plan: -resume home meds Code(s): R25.1 - TREMOR, UNSPECIFIED (9) Type 2 diabetes mellitus Current Visit: No Status: Chronic Qualifiers: 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4 MG] 0.8 mg PO HS Atorvastatin Calcium 40 mg PO QHS Apixaban [Eliquis] 5 mg PO BID Psyllium Packet [Metamucil PACKET] 1 packet PO DAILY Midodrine HCl [Proamatine] 10 mg PO TID Mineral-3 Fatty Acids [Mineral-3] 1 cap PO DAILY Cholecalciferol (Vitamin D3) [Vitamin D3] 1 each PO WEEKLY Alpha Lipoic Acid 300 mg PO BID Magnesium Oxide 400 mg [Mag-Ox 400] 400 mg PO DAILY Ferrous Sulfate 325 mg [Feosol 325 mg] 1 tab PO DAILY Aspirin EC 81 mg [Ecotrin 81 mg] 81 mg PO DAILY Finasteride 5 mg [Proscar 5 MG] 5 mg PO DAILY Lisinopril 10 mg [Zestril 10 MG] 10 mg PO DAILY PANTOPRAZOLE 40 mg Tablet [Protonix 40MG Tablet] 40 mg PO DAILY Insulin Aspart (Niacinamide) [Fiasp 100 Unit/ml Flextouch] 1 unit SQ UD PRN PRN Reason: dm Sulfamethoxazole/Trimethoprim [Sulfamethoxazole-Tmp Ds Tablet] 1 each PO BID #0 Follow up with: JOSE ALBERTO GRAJEDA [Primary Care Provider] -
[2023-02-12] MEDS: ELIQUIS 2.5 MG TABLET PO SCH (11:01)
[2023-02-12] MEDS: ECOTRIN 81 MG PO SCH (11:01)
[2023-02-12] MEDS: Lantus Insulin SQ SCH (11:02)
[2023-02-12 11:49] VITALS: BP 154/69; TEMP 97.2
== END 2023-02-12 14:18 ==
LOC: ED 20:11 → MED SURG 22:25
PROVIDERS: ADMIT Student in an Organized Health Care Education/Training Program; ATTEND Student in an Organized Health Care Education/Training Program
DX: N39.0 Urinary tract infection, site not specified (principal); R05.9 Cough, unspecified; F10.11 Alcohol abuse, in remission; E44.1 Mild protein-calorie malnutrition; R53.81 Other malaise; K50.90 Crohn's disease, unspecified, without complications; Z86.73 Personal history of transient ischemic attack (TIA), and cerebral infarction without residual deficits; R25.1 Tremor, unspecified; E11.9 Type 2 diabetes mellitus without complications; I48.91 Unspecified atrial fibrillation; I25.10 Atherosclerotic heart disease of native coronary artery without angina pectoris; I10 Essential (primary) hypertension; I25.2 Old myocardial infarction; D64.9 Anemia, unspecified; Z79.4 Long term (current) use of insulin; Z79.01 Long term (current) use of anticoagulants; Z79.899 Other long term (current) drug therapy; Z20.828 Contact with and (suspected) exposure to other viral communicable diseases; Z95.1 Presence of aortocoronary bypass graft
CPT/HCPCS: 36415; 51702; 74230; 80053; 81001; 82947; 83036; 85025; 85027; 87086; 92611; 94760; 97110; 97163; 97165; 99284; Q3014; G0378; J1817; A9270-GY

== ENCOUNTER 2023-02-23 17:50 | Observation (INO) | payer MEDICARE ==
[2023-02-23] MEDS ORDERED: Sodium Chloride 0.9% 1000 ML 1,000 ML IV STA (17:55)
[2023-02-23] MEDS ORDERED: D50W 50 ml Abboject IV ONE ×2 (17:57→18:02)
[2023-02-23] MEDS ORDERED: BACIGUENT PACKET ONE (18:25)
[2023-02-23 18:35] LABS: Absolute Neutrophil Ct (ANC) 7.78 x10^3/uL (1.4-6.9); BASOPHIL % 0.8 % (0.0-0.4); Basophil (Absolute #) 0.08 x10^3/uL (0-0.4); Eosinophil % 4.3 % (0.00-5.0); Eosinophil (Absolute #) 0.42 x10^3/uL (0-0.5); Hematocrit 35.7 % (42-50); Hemoglobin 11.4 g/dL (12.5-18.0); IMMATURE GRAN # 0.08 x10^3u/L (0.00-0.03); IMMATURE GRAN % 0.8 % (0.00-0.4); Lymphocyte (Absolute #) 0.83 x10^3/uL (1.0-4.6); Lymphocytes % 8.5 % (24.0-44.0); Mean Cell Volume 95.2 fL (78-100); Mean Corpuscular Hemoglobin 30.4 pg (26-32); Mean Corpuscular Hgb Concent. 31.9 g/dL (32-36); Monocyte (Absolute #) 0.58 x10^3/uL (0.0-1.3); Monocytes % 5.9 % (0.0-12.0); Neutrophil % 79.7 % (36.0-66.0); Platelet Count 262 x10^3/uL (150-450); Red Blood Count 3.75 x10^6/uL (4.1-5.6); White Blood Count 9.8 x10^3/uL (4.0-10.5)
--- NOTE | 2023-02-23 18:36 | ERPHSYRPT ---
- History of Present Illness Source: family, EMS Exam Limitations: clinical condition Timing/Duration: today Associated Symptoms: weakness Hx Tetanus, Diphtheria Vaccination/Date Given: Yes Hx Influenza Vaccination/Date Given: Yes Hx Pneumococcal Vaccination/Date Given: Yes <ROSANNA KYLE - Last Filed: 02/23/23 18:37> <Simone Roe - Last Filed: 02/23/23 22:36> - History of Present Illness Time Seen by Provider: 02/23/23 18:34 Physician History: Patient is 68-year-old male with significant past medical history of insulin- dependent diabetes mellitus coronary artery disease history of cerebrovascular stroke history of alcohol abuse and alcohol liver disease history of chronic kidney disease due to diabetes and recurrent urinary tract infection was recently at [facility] from where patient was discharged home with home health service but afterward patient was admitted at [facility] [place] for further rehab. Patient was doing okay suddenly patient felt weak and at [facility] his sugar was found to be around 50. Patient had a fall yesterday. According to patient's daughter patient has a multiple episode of hypoglycemia whenever he has a urinary tract infection. (ROSANNA KYLE) I took over care for pt at 19:00 after discussing pt case w/ Dr Kyle. pt stable, condition improving, glucose stable. (Simone Roe) Allergies/Adverse Reactions: acetaminophen [From Percocet] Adverse Reaction (Verified 02/09/23 20:12) confusion hydromorphone [From Dilaudid] Adverse Reaction (Verified 02/09/23 20:12) confusion morphine Adverse Reaction (Verified 02/09/23 20:12) confusion oxycodone [From Percocet] Adverse Reaction (Verified 02/09/23 20:12) confusion Home Medications: Albuterol Sulfate [Albuterol Sulfate Hfa] 2 puff IH QID 10/24/20 [History] Budesonide [Budesonide Dr] 9 mg PO DAILY 10/24/20 [History] Insulin Detemir [Levemir] 24 units SQ DAILY 10/24/20 [History] Dronedarone Hydrochloride 400* [Multaq 400 MG] 200 mg PO BID 09/16/21 [History] Atorvastatin Calcium 40 mg PO QHS 01/01/22 [History] Tamsulosin HCl 0.4 mg [Flomax 0.4 MG] 0.8 mg PO HS 01/01/22 [History] Alpha Lipoic Acid 300 mg PO BID 10/12/22 [History] Apixaban [Eliquis] 5 mg PO BID 10/12/22 [History] Cholecalciferol (Vitamin D3) [Vitamin D3] 1 each PO WEEKLY 10/12/22 [History] Midodrine HCl [Proamatine] 10 mg PO TID 10/12/22 [History] Dugspur-3 Fatty Acids [Dugspur-3] 1 cap PO DAILY 10/12/22 [History] Psyllium Packet [Metamucil PACKET] 1 packet PO DAILY 10/12/22 [History] Aspirin EC 81 mg [Ecotrin 81 mg] 81 mg PO DAILY 12/01/22 [History] Ferrous Sulfate 325 mg [Feosol 325 mg] 1 tab PO DAILY 12/01/22 [History] Magnesium Oxide 400 mg [Mag-Ox 400] 400 mg PO DAILY 12/01/22 [History] Finasteride 5 mg [Proscar 5 MG] 5 mg PO DAILY 12/28/22 [History] PANTOPRAZOLE 40 mg Tablet [Protonix 40MG Tablet] 40 mg PO DAILY 02/09/23 [History] Insulin Aspart (Niacinamide) [Fiasp 100 Unit/ml Flextouch] 1 unit SQ UD PRN 12/26 [History] Acetaminophen 325 mg [Tylenol 325 mg] 2 tab PO Q4H PRN 02/23/23 [History] Tramadol HCl 50 mg [Ultram 50 mg] 50 mg PO Q6H PRN 02/23/23 [History] Travel Risk - Vaccine Status Have you recieved a Covid-19 vaccination: Yes [employer]: [employer] - Vaccination Dates Date of 2cond Vaccination (if applicable): 2019 <ROSANNA KYLE - Last Filed: 02/23/23 18:37> - Review of Systems Constitutional: Weakness, No Fever, No Chills Eyes: No Symptoms Ears, Nose, & Throat: No Symptoms Respiratory: No Cough, No Dyspnea Cardiac: No Chest Pain, No Edema, No Syncope Abdominal/Gastrointestinal: No Abdominal Pain, No Nausea, No Vomiting, No Diarrhea Genitourinary Symptoms: No Dysuria Musculoskeletal: Fall, No Back Pain, No Neck Pain Skin: No Rash Neurological: No Dizziness, No Focal Weakness, No Sensory Changes Psychological: No Symptoms Endocrine: No Symptoms All Other Systems: Reviewed and Negative <ANABELLA - Last Filed: 02/23/23 18:37> - Past Medical History Pertinent Past Medical History: Yes Neurological History: Stroke, TIA ENT History: Other Cardiac History: Coronary Artery Disease, Hypertension, Myocardial Infarction ([place]) Respiratory History: No Pertinent History Endocrine Medical History: Diabetes Type II Musculoskeletal History: Arthritis, Fractures GI Medical History: Crohns Disease, GERD History: No Pertinent History Psycho-Social History: No Pertinent History Male Reproductive Disorders: Prostate Problems Other Medical History: ANEMIA, ATAXIA, A-FIB, ATROPHY OF PANCREAS, 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, LUNG NODULES, MALNOURISHED, ORTHOSTATIC HYPOTENSION, SENSORY NEUROPATHY, VASCULAR INSUFFICIENCY OF EXTREMITIY - Past Surgical History Past Surgical History: Yes Neuro Surgical History: No Pertinent History Cardiac: CABG, Cardiac Catheterization, Cardiac Stent, Other Respiratory: No Pertinent History Gastrointestinal: Appendectomy, Other Genitourinary: No Pertinent History Musculoskeletal: Orthopedic Surgery Male Surgical History: No Pertinent History Other Surgical History: 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, intestinal resection, triple bypass - Social History Smoking Status: Former smoker How long have you smoked: years Exposure to second hand smoke: Yes Drug Use: none Patient Lives Alone: No (daughter) Significant Family History: no pertinent family hx <ANABELLA - Last Filed: 02/23/23 18:37> - Physical Exam General Appearance: no apparent distress, alert Eye Exam: PERRL/EOMI, eyes nml inspection Ears, Nose, Throat Exam: normal ENT inspection, TMs normal, pharynx normal, moist mucous membranes Neck Exam: normal inspection, non-tender, supple, full range of motion Respiratory Exam: normal breath sounds, lungs clear, No respiratory distress Cardiovascular Exam: regular rate/rhythm, capillary refill >3 sec Gastrointestinal/Abdomen Exam: soft, normal bowel sounds, No tenderness, No mass Back Exam: normal inspection, normal range of motion, No CVA tenderness, No vertebral tenderness Extremity Exam: normal inspection, normal range of motion, pelvis stable, lacerations (on left forearm) Neurologic Exam: alert, oriented x 3, cooperative, normal mood/affect, nml cerebellar function, nml station & gait, sensation nml, No motor deficits Skin Exam: normal color, warm, dry, No rash Lymphatic Exam: No adenopathy SpO2 Interpretation: normal O2 Delivery: Room Air <ANABELLA,ROSANNA - Last Filed: 02/23/23 18:37> - Nursing Vital Signs Nursing Vital Signs: Initial Vital Signs Temperature 98 F 02/23/23 17:51 Pain Scale Pain Intensity 0 - Course Nursing assessment & vital signs reviewed: Yes EKG Interpreted by Me: Sinus Rhythm <ANABELLA, - Last Filed: 02/23/23 18:37> - CT Exams Head CT Interpretation: Tele-radiologist Report, No/Intracranial Hemorrhag, Old Stroke, Other <Simone Roe - Last Filed: 02/23/23 22:36> Ordered Tests: Active Orders 24 hr Category Date Time Status IV Insertion STAT Care 02/23/23 18:39 Active HEAD WITHOUT CONTRAST [CT] Stat Exams 02/23/23 20:33 Completed CBC W DIFF Stat Lab 02/23/23 18:10 Completed CMP Stat Lab 02/23/23 18:10 Completed CULTURE,URINE Stat Lab 02/23/23 21:25 Received POCT GLUCOSE Stat Lab 02/23/23 17:56 Completed POCT GLUCOSE Stat Lab 02/23/23 18:36 Completed POCT GLUCOSE Stat Lab 02/23/23 20:03 Completed POCT GLUCOSE Stat Lab 02/23/23 21:46 Completed UA W/RFX UR CULTURE Stat Lab 02/23/23 21:25 Completed Transfer Order Routine Transfer 02/23/23 Ordered Medication Summary Generic Name Dose Route Start Last Admin Trade Name Freq PRN Reason Stop Dose Admin Dextrose/Sodium Chloride 1,000 mls @ 100 mls/hr 02/23/23 22:00 02/23/23 21:51 Dextrose 5%-Ns Iv Solution 1000 Ml IV 03/25/23 21:59 100 mls/hr .Q10H ELIZABETH Administration Discontinued Medications Generic Name Dose Route Start Last Admin Trade Name Freq PRN Reason Stop Dose Admin Bacitracin Zinc Confirm 02/23/23 18:25 Bacitracin Packet 1 Each Pckt Administered 02/23/23 18:26 Dose 1 each .ROUTE .STK-MED ONE Bacitracin Zinc 0.9 each 02/23/23 19:01 02/23/23 19:02 Bacitracin Packet 1 Each Pckt TP 02/23/23 19:02 0.9 each STAT ONE Administration Dextrose 50 ml 02/23/23 17:57 02/23/23 18:02 Dextrose 50%-Water 50 Ml Abboject IV 02/23/23 17:58 50 ml STAT ONE Administration Dextrose Confirm 02/23/23 18:02 Dextrose 50%-Water 50 Ml Abboject Administered 02/23/23 18:03 Dose 50 ml IV .STK-MED ONE Sodium Chloride 1,000 mls @ 999 mls/hr 02/23/23 17:55 02/23/23 19:53 Sodium Chloride 0.9% 1000 Ml IV 02/23/23 18:55 Infused .Q1H1M STA Infusion Sodium Chloride Confirm 02/23/23 18:41 Sodium Chloride 0.9% 1000 Ml Administered 02/23/23 18:42 Dose 1,000 mls @ ud .ROUTE .STK-MED ONE Lab/Rad Data: Laboratory Result Diagrams 02/23/23 18:10 02/23/23 18:10 Laboratory Results 02/23/23 02/23/23 02/23/23 Range/Units 21:46 21:25 20:03 WBC (4.0-10.5) x10^3/uL RBC (4.1-5.6) x10^6/uL Hgb (12.5-18.0) g/dL Hct (42-50) % MCV (78-100) fL MCH (26-32) pg MCHC (32-36) g/dL RDW (11.5-14.0) % Plt Count (150-450) x10^3/uL MPV (7.5-11.0) fL Gran % (36.0-66.0) % Immature Gran % (Auto) (0.00-0.4) % Nucleat RBC Rel Count (0.00-0.1) % Eos # (Auto) (0-0.5) x10^3/uL Immature Gran # (Auto) (0.00-0.03) x10^3u/L Absolute Lymphs (auto) (1.0-4.6) x10^3/uL Absolute Monos (auto) (0.0-1.3) x10^3/uL Absolute Nucleated RBC (0.00-0.01) x10^3u/L Lymphocytes % (24.0-44.0) % Monocytes % (0.0-12.0) % Eosinophils % (0.00-5.0) % Basophils % (0.0-0.4) % Absolute Granulocytes (1.4-6.9) x10^3/uL Basophils # (0-0.4) x10^3/uL Sodium (137-145) mmol/L Potassium (3.5-5.1) mmol/L Chloride (98-107) mmol/L Carbon Dioxide (22-30) mmol/L Anion Gap (5-15) MEQ/L BUN (9-20) mg/dL Creatinine (0.66-1.25) mg/dL Estimated GFR ML/MIN Glucose (74-106) mg/dL POC Glucometer 62 L 130 H (74 to 106) mg/dL Calcium (8.4-10.2) mg/dL Total Bilirubin (0.2-1.3) mg/dL AST (17-59) U/L ALT (0-50) U/L Alkaline Phosphatase (38-126) U/L Serum Total Protein (6.3-8.2) g/dL Albumin (3.5-5.0) g/dL Urine Color Yellow (Yellow) Urine Appearance Clear (Clear) Urine pH 7.5 (4.6-8.0) Ur Specific [place] 1.015 (1.005-1.030) Urine Protein 30 (Negative) Urine Glucose (UA) Negative (Negative) mg/dL Urine Ketones Negative (Negative) Urine Blood NHT (Negative) Urine Nitrite Negative (Negative) Urine Bilirubin Negative (Negative) Urine Urobilinogen 1.0 A (0.2) mg/dL Ur Leukocyte Esterase Trace A (Negative) U Hyaline Cast (Auto) NONE SEEN (0-2) /LPF Urine Microscopic RBC 3-5 (0-5) /HPF Urine Microscopic WBC 3-5 (0-5) /HPF Ur Epithelial Cells Rare (None Seen) /HPF Urine Bacteria Rare A (None Seen) /HPF Urine Culture Reflexed YES (NO) 02/23/23 02/23/23 02/23/23 Range/Units 18:36 18:10 18:10 WBC 9.8 (4.0-10.5) x10^3/uL RBC 3.75 L (4.1-5.6) x10^6/uL Hgb 11.4 L (12.5-18.0) g/dL Hct 35.7 L (42-50) % MCV 95.2 (78-100) fL MCH 30.4 (26-32) pg MCHC 31.9 L (32-36) g/dL RDW 13.0 (11.5-14.0) % Plt Count 262 (150-450) x10^3/uL MPV 12.0 H (7.5-11.0) fL Gran % 79.7 H (36.0-66.0) % Immature Gran % (Auto) 0.8 H (0.00-0.4) % Nucleat RBC Rel Count 0.0 (0.00-0.1) % Eos # (Auto) 0.42 (0-0.5) x10^3/uL Immature Gran # (Auto) 0.08 H (0.00-0.03) x10^3u/L Absolute Lymphs (auto) 0.83 L (1.0-4.6) x10^3/uL Absolute Monos (auto) 0.58 (0.0-1.3) x10^3/uL Absolute Nucleated RBC 0.00 (0.00-0.01) x10^3u/L Lymphocytes % 8.5 L (24.0-44.0) % Monocytes % 5.9 (0.0-12.0) % Eosinophils % 4.3 (0.00-5.0) % Basophils % 0.8 (0.0-0.4) % Absolute Granulocytes 7.78 H (1.4-6.9) x10^3/uL Basophils # 0.08 (0-0.4) x10^3/uL Sodium 136 L (137-145) mmol/L Potassium 4.4 (3.5-5.1) mmol/L Chloride 100 (98-107) mmol/L Carbon Dioxide 29 (22-30) mmol/L Anion Gap 12.1 (5-15) MEQ/L BUN 24 H (9-20) mg/dL Creatinine 0.81 (0.66-1.25) mg/dL Estimated GFR > 60.0 ML/MIN Glucose 35 L* (74-106) mg/dL POC Glucometer 135 H (74 to 106) mg/dL Calcium 9.5 (8.4-10.2) mg/dL Total Bilirubin 0.60 (0.2-1.3) mg/dL AST 35 (17-59) U/L ALT 31 (0-50) U/L Alkaline Phosphatase 162 H (38-126) U/L Serum Total Protein 7.1 (6.3-8.2) g/dL Albumin 4.2 (3.5-5.0) g/dL Urine Color (Yellow) Urine Appearance (Clear) Urine pH (4.6-8.0) Ur Specific [place] (1.005-1.030) Urine Protein (Negative) Urine Glucose (UA) (Negative) mg/dL Urine Ketones (Negative) Urine Blood (Negative) Urine Nitrite (Negative) Urine Bilirubin (Negative) Urine Urobilinogen (0.2) mg/dL Ur Leukocyte Esterase (Negative) U Hyaline Cast (Auto) (0-2) /LPF Urine Microscopic RBC (0-5) /HPF Urine Microscopic WBC (0-5) /HPF Ur Epithelial Cells (None Seen) /HPF Urine Bacteria (None Seen) /HPF Urine Culture Reflexed (NO) 02/23/23 Range/Units 17:56 WBC (4.0-10.5) x10^3/uL RBC (4.1-5.6) x10^6/uL Hgb (12.5-18.0) g/dL Hct (42-50) % MCV (78-100) fL MCH (26-32) pg MCHC (32-36) g/dL RDW (11.5-14.0) % Plt Count (150-450) x10^3/uL MPV (7.5-11.0) fL Gran % (36.0-66.0) % Immature Gran % (Auto) (0.00-0.4) % Nucleat RBC Rel Count (0.00-0.1) % Eos # (Auto) (0-0.5) x10^3/uL Immature Gran # (Auto) (0.00-0.03) x10^3u/L Absolute Lymphs (auto) (1.0-4.6) x10^3/uL Absolute Monos (auto) (0.0-1.3) x10^3/uL Absolute Nucleated RBC (0.00-0.01) x10^3u/L Lymphocytes % (24.0-44.0) % Monocytes % (0.0-12.0) % Eosinophils % (0.00-5.0) % Basophils % (0.0-0.4) % Absolute Granulocytes (1.4-6.9) x10^3/uL Basophils # (0-0.4) x10^3/uL Sodium (137-145) mmol/L Potassium (3.5-5.1) mmol/L Chloride (98-107) mmol/L Carbon Dioxide (22-30) mmol/L Anion Gap (5-15) MEQ/L BUN (9-20) mg/dL Creatinine (0.66-1.25) mg/dL Estimated GFR ML/MIN Glucose (74-106) mg/dL POC Glucometer 55 L (74 to 106) mg/dL Calcium (8.4-10.2) mg/dL Total Bilirubin (0.2-1.3) mg/dL AST (17-59) U/L ALT (0-50) U/L Alkaline Phosphatase (38-126) U/L Serum Total Protein (6.3-8.2) g/dL Albumin (3.5-5.0) g/dL Urine Color (Yellow) Urine Appearance (Clear) Urine pH (4.6-8.0) Ur Specific [place] (1.005-1.030) Urine Protein (Negative) Urine Glucose (UA) (Negative) mg/dL Urine Ketones (Negative) Urine Blood (Negative) Urine Nitrite (Negative) Urine Bilirubin (Negative) Urine Urobilinogen (0.2) mg/dL Ur Leukocyte Esterase (Negative) U Hyaline Cast (Auto) (0-2) /LPF Urine Microscopic RBC (0-5) /HPF Urine Microscopic WBC (0-5) /HPF Ur Epithelial Cells (None Seen) /HPF Urine Bacteria (None Seen) /HPF Urine Culture Reflexed (NO) - Progress Progress: unchanged Discussed with : Radha Will see patient in: hospital (observation) Counseled pt/family regarding: lab results, diagnosis, rad results <Simone Roe - Last Filed: 02/23/23 22:36> - Progress Progress Note: 02/23/23 19:54 Blood glucose improving, pt received 1 amp d50 - glucose increased to 135. 02/23/23 22:16 Blood glucose decreased down to 65. Started pt on d5NS @ 100ml/h. Decision made to admit for observation for persistent hypoglycemia and AMS. I discussed pt case w/ Dr Kendall who agreed to admit. head CT showed 1. Continued nonacute senile brain atrophic changes with renoted multifocal remote lacunar infarcts and incidental paranasal sinus disease. 2. If clinically suspicious, MRI with diffusion-weighted imaging is recommended for further evaluation. UA negative (Simone Roe) Medical Desision Making - Independent Historian Additional History obtained from: Child (daughter) - External Record(s) Reviewed Records reviewed as a part of evaluation & management: Inpatient - Discussion of managment Care discussed with:: hospitalist (Dr Kendall) Reviewed:: Test results Agreed on:: place in obs Will see patient: in hospital - Diagnostic Testing Diagnostic test were ordered, analyzed, and reviewed by me: Yes Radiological Interpretation: Reviewed by me, Teleradiologist Report - Risk of complications The pt has a mod risk of morbidity or mortality based on: Need for prescription drug management (needs close monitoring of blood glucose) <Simone Roe - Last Filed: 02/23/23 22:36> <ROSANNA KYLE - Last Filed: 02/23/23 18:37> - Departure Departure Disposition: Observation Critical Care Time: No <Simone Roe - Last Filed: 02/23/23 22:36> - Departure Clinical Impression: Hypoglycemia associated with diabetes Altered mental status Qualifiers: Altered mental status type: unspecified Qualified Code(s): R41.82 - Altered mental status, unspecified Condition: Stable
[2023-02-23] MEDS ORDERED: Sodium Chloride 0.9% 1000 ML 1,000 ML ONE (18:41)
[2023-02-23 18:48] LABS: ALBUMIN 4.2 g/dL (3.5-5.0); ALKALINE PHOSPHATASE 162 U/L (38-126); ANION GAP 12.1 MEQ/L (5-15); BLOOD UREA NITROGEN 24 mg/dL (9-20); CHLORIDE 100 mmol/L (98-107); Calcium 9.5 mg/dL (8.4-10.2); Carbon Dioxide 29 mmol/L (22-30); Creatinine 1 0.81 mg/dL (0.66-1.25); EST GLOMERULAR FILTRATION RATE > 60.0 ML/MIN; Potassium 4.4 mmol/L (3.5-5.1); SGOT/AST 35 U/L (17-59); SGPT/ALT 31 U/L (0-50); SODIUM 136 mmol/L (137-145); Total Protein 7.1 g/dL (6.3-8.2)
[2023-02-23 18:55] LABS: Glucose 35 mg/dL (74-106)
[2023-02-23] MEDS ORDERED: BACIGUENT PACKET TP ONE (19:01)
[2023-02-23 21:49] LABS: Appearance Clear (Clear); Bilirubin Negative (Negative); Blood NHT (Negative); Glucose, Urine Negative (Negative); Hyaline Casts NONE SEEN /LPF (0-2); Ketones Negative (Negative); Leukocyte Esterase Trace (Negative); Nitrite Negative (Negative); Ph 7.5 (4.6-8.0); Protein,Urine Dip 30 (Negative); Specific Gravity 1.015 (1.005-1.030)
[2023-02-23 21:50] LABS: ADD URINE CULTURE? YES (NO); Bacteria Rare /HPF (None Seen); Epithelial Cells Rare /HPF (None Seen)
--- NOTE | 2023-02-23 21:50 | XRAY ---
CLINICAL HISTORY:altered mental status COMPARISON:12/19/2022. TECHNIQUE:An axial non-contrast CT scan of the brain was performed from the skull base to the high parietal region. FINDINGS: Redemonstration of age-appropriate global atrophy, moderate periventricular degenerative micro-ischemia bilaterally, and remote lacunar infarcts left basal ganglia/right basal ganglia/right mid mares radiata/brainstem. No acute intracranial hemorrhage, abnormal extra-axial fluid collection, or mass effect. The fourth ventricle is midline without hydrocephalus. The bony calvarium is intact. Stable mild mucosal thickening in the left maxillary sinus. Mastoid air cells are clear. IMPRESSION: 1. Continued nonacute senile brain atrophic changes with renoted multifocal remote lacunar infarcts and incidental paranasal sinus disease. 2. If clinically suspicious, MRI with diffusion-weighted imaging is recommended for further evaluation. Electronically Signed by: Brad Mccurdy MD. (02/23/2023 20:49:47 CAD DETAILER)
[2023-02-23] MEDS ORDERED: Dextrose 5%-NS IV Solution 1000 ML 1,000 ML IV SCH (22:00)
[2023-02-23] MEDS ORDERED: HUMALOG SQ PRN (23:06)
[2023-02-23] MEDS ORDERED: TYLENOL 325 MG PO PRN (23:06)
[2023-02-23] MEDS ORDERED: Zofran 4 MG/2 ML VIAL IV PRN (23:06)
[2023-02-23] MEDS ORDERED: ULTRAM 50 MG PO PRN (23:10)
[2023-02-23] MEDS ORDERED: NON-FORMULARY ITEM (Cholecalciferol (Vitamin D3) [Vitamin D3] 1,250 MCG Capsule) PO SCH (23:15)
--- NOTE | 2023-02-23 23:18 | PCM.HP ---
History of Present Illness - Chief Complaint Chief Complaint: hypoglycemia History of Present Illness: Mr. SOTO is a 68 year old male with hx of Afib, orthostatic hypotension, DMII, CAD, CVA here with AMS and low BS - 30s. He has recurrent UTIs and was here last week for complicated UTI, MO'ed to nursing facility but came back today with AMS and low BS. Daughter says he is much more altered than he normally is. Has not been eating well. No fever, chills, dysuria, hematuria, flank pain, nausea, vomiting, diarrhea. No SOB nor chest pain Admitted for refractory hypoglycemia. I am seeing pt in his room via telemedicine. He is confused, sluggish, and last BS was 68. - Review of Systems All Other Systems: Unable due to condition (AMS) Medications & Allergies Home Medications: Home Medication List Albuterol Sulfate [Albuterol Sulfate Hfa] 2 puff IH QID 10/24/20 [History Confirmed 02/23/23] Budesonide [Budesonide Dr] 9 mg PO DAILY 10/24/20 [History Confirmed 02/23/23] Insulin Detemir [Levemir] 24 units SQ DAILY 10/24/20 [History Confirmed 02/23/23] Dronedarone Hydrochloride 400* [Multaq 400 MG] 200 mg PO BID 09/16/21 [History Confirmed 02/23/23] Atorvastatin Calcium 40 mg PO QHS 01/01/22 [History Confirmed 02/23/23] Tamsulosin HCl 0.4 mg [Flomax 0.4 MG] 0.8 mg PO HS 01/01/22 [History Confirmed 02/23/23] Alpha Lipoic Acid 300 mg PO BID 10/12/22 [History Confirmed 02/23/23] Apixaban [Eliquis] 5 mg PO BID 10/12/22 [History Confirmed 02/23/23] Cholecalciferol (Vitamin D3) [Vitamin D3] 1 each PO WEEKLY 10/12/22 [History Confirmed 02/23/23] Midodrine HCl [Proamatine] 10 mg PO TID 10/12/22 [History Confirmed 02/23/23] [place]-3 Fatty Acids [[place]-3] 1 cap PO DAILY 10/12/22 [History Confirmed 02/23/23] Psyllium Packet [Metamucil PACKET] 1 packet PO DAILY 10/12/22 [History Confirmed 02/23/23] Aspirin EC 81 mg [Ecotrin 81 mg] 81 mg PO DAILY 12/01/22 [History Confirmed 02/23/23] Ferrous Sulfate 325 mg [Feosol 325 mg] 1 tab PO DAILY 12/01/22 [History Confirmed 02/23/23] Magnesium Oxide 400 mg [Mag-Ox 400] 400 mg PO DAILY 12/01/22 [History Confirmed 02/23/23] Finasteride 5 mg [Proscar 5 MG] 5 mg PO DAILY 12/28/22 [History Confirmed 02/23/23] PANTOPRAZOLE 40 mg Tablet [Protonix 40MG Tablet] 40 mg PO DAILY 02/09/23 [History Confirmed 02/23/23] Insulin Aspart (Niacinamide) [Fiasp 100 Unit/ml Flextouch] 1 unit SQ UD PRN 02/10/23 [History Confirmed 02/23/23] Acetaminophen 325 mg [Tylenol 325 mg] 2 tab PO Q4H PRN 02/23/23 [History Confirmed 02/23/23] Tramadol HCl 50 mg [Ultram 50 mg] 50 mg PO Q6H PRN 02/23/23 [History Confirmed 02/23/23] Allergies/Adverse Reactions: Allergies Allergy/AdvReac Type Severity Reaction Status Date / Time acetaminophen [From Percocet] AdvReac Verified 02/09/23 20:12 hydromorphone [From Dilaudid] AdvReac Verified 02/09/23 20:12 morphine AdvReac Verified 02/09/23 20:12 oxycodone [From Percocet] AdvReac Verified 02/09/23 20:12 - Past Medical History Past Medical History: Yes Neurological History: Stroke, TIA ENT History: Other Cardiac History: Coronary Artery Disease, Hypertension, Myocardial Infarction ([place]) Respiratory History: No Pertinent History Endocrine Medical History: Diabetes Type II Musculoskelatal History: Arthritis, Fractures GI Medical History: Crohns Disease, GERD History: No Pertinent History Pyscho-Social History: No Pertinent History Male Reproductive Disorders: Prostate Problems Comment: ANEMIA, ATAXIA, A-FIB, ATROPHY OF PANCREAS, 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, LUNG NODULES, MALNOURISHED, ORTHOSTATIC HYPOTENSION, SENSORY NEUROPATHY, VASCULAR INSUFFICIENCY OF EXTREMITIY - Past Surgical History Past Surgical History: Yes Neuro Surgical History: No Pertinent History Cardiac History: CABG, Cardiac Catheterization, Cardiac Stent, Other Respiratory Surgery: No Pertinent History GI Surgical History: Appendectomy, Other Genitourinary Surgical Hx: No Pertinent History Musculskeletal Surgical Hx: Orthopedic Surgery Male Surgical History: No Pertinent History Other Surgical History: 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, intestinal resection, triple bypass - Social History Smoking Status: Former smoker How long have you smoked: years Exposure to second hand smoke: Yes Alcohol: None Drug Use: none Significant Family History: no pertinent family hx - Physical Exam Vital Signs: Vital Signs - 24 hr Temp Pulse Resp BP BP Pulse Ox 02/23/23 22:00 82 18 182/78 96 02/23/23 21:31 80 18 164/65 96 02/23/23 21:00 76 166/80 96 02/23/23 20:30 159/74 02/23/23 20:00 84 142/71 97 02/23/23 19:30 91 H 123/60 95 02/23/23 19:00 124/64 97 02/23/23 18:31 82 21 144/64 98 02/23/23 18:18 86 20 126/72 98 02/23/23 17:51 98 F General Appearance: no apparent distress Neurologic Exam: disoriented Ears, Nose, Throat Exam: normal ENT inspection Neck Exam: normal inspection, non-tender, supple, full range of motion Respiratory Exam: normal breath sounds, chest tenderness, lungs clear Cardiovascular Exam: normal heart sounds, normal peripheral pulses, irregular Gastrointestinal/Abdomen Exam: soft, normal bowel sounds Rectal Exam: deferred Back Exam: normal inspection Skin Exam: normal color, warm, dry Results - Labs Lab/Micro Results: Lab Results-Last 24 Hours 02/23/23 02/23/23 02/23/23 Range/Units 17:56 18:10 18:10 WBC 9.8 (4.0-10.5) x10^3/uL RBC 3.75 L (4.1-5.6) x10^6/uL Hgb 11.4 L (12.5-18.0) g/dL Hct 35.7 L (42-50) % MCV 95.2 (78-100) fL MCH 30.4 (26-32) pg MCHC 31.9 L (32-36) g/dL RDW 13.0 (11.5-14.0) % Plt Count 262 (150-450) x10^3/uL MPV 12.0 H (7.5-11.0) fL Gran % 79.7 H (36.0-66.0) % Immature Gran % (Auto) 0.8 H (0.00-0.4) % Nucleat RBC Rel Count 0.0 (0.00-0.1) % Eos # (Auto) 0.42 (0-0.5) x10^3/uL Immature Gran # (Auto) 0.08 H (0.00-0.03) x10^3u/L Absolute Lymphs (auto) 0.83 L (1.0-4.6) x10^3/uL Absolute Monos (auto) 0.58 (0.0-1.3) x10^3/uL Absolute Nucleated RBC 0.00 (0.00-0.01) x10^3u/L Lymphocytes % 8.5 L (24.0-44.0) % Monocytes % 5.9 (0.0-12.0) % Eosinophils % 4.3 (0.00-5.0) % Basophils % 0.8 (0.0-0.4) % Absolute Granulocytes 7.78 H (1.4-6.9) x10^3/uL Basophils # 0.08 (0-0.4) x10^3/uL Sodium 136 L (137-145) mmol/L Potassium 4.4 (3.5-5.1) mmol/L Chloride 100 (98-107) mmol/L Carbon Dioxide 29 (22-30) mmol/L Anion Gap 12.1 (5-15) MEQ/L BUN 24 H (9-20) mg/dL Creatinine 0.81 (0.66-1.25) mg/dL Estimated GFR > 60.0 ML/MIN Glucose 35 L* (74-106) mg/dL POC Glucometer 55 L (74 to 106) mg/dL Calcium 9.5 (8.4-10.2) mg/dL Total Bilirubin 0.60 (0.2-1.3) mg/dL AST 35 (17-59) U/L ALT 31 (0-50) U/L Alkaline Phosphatase 162 H (38-126) U/L Serum Total Protein 7.1 (6.3-8.2) g/dL Albumin 4.2 (3.5-5.0) g/dL Urine Color (Yellow) Urine Appearance (Clear) Urine pH (4.6-8.0) Ur Specific [place] (1.005-1.030) Urine Protein (Negative) Urine Glucose (UA) (Negative) mg/dL Urine Ketones (Negative) Urine Blood (Negative) Urine Nitrite (Negative) Urine Bilirubin (Negative) Urine Urobilinogen (0.2) mg/dL Ur Leukocyte Esterase (Negative) U Hyaline Cast (Auto) (0-2) /LPF Urine Microscopic RBC (0-5) /HPF Urine Microscopic WBC (0-5) /HPF Ur Epithelial Cells (None Seen) /HPF Urine Bacteria (None Seen) /HPF Urine Culture Reflexed (NO) 02/23/23 02/23/23 02/23/23 Range/Units 18:36 20:03 21:25 WBC (4.0-10.5) x10^3/uL RBC (4.1-5.6) x10^6/uL Hgb (12.5-18.0) g/dL Hct (42-50) % MCV (78-100) fL MCH (26-32) pg MCHC (32-36) g/dL RDW (11.5-14.0) % Plt Count (150-450) x10^3/uL MPV (7.5-11.0) fL Gran % (36.0-66.0) % Immature Gran % (Auto) (0.00-0.4) % Nucleat RBC Rel Count (0.00-0.1) % Eos # (Auto) (0-0.5) x10^3/uL Immature Gran # (Auto) (0.00-0.03) x10^3u/L Absolute Lymphs (auto) (1.0-4.6) x10^3/uL Absolute Monos (auto) (0.0-1.3) x10^3/uL Absolute Nucleated RBC (0.00-0.01) x10^3u/L Lymphocytes % (24.0-44.0) % Monocytes % (0.0-12.0) % Eosinophils % (0.00-5.0) % Basophils % (0.0-0.4) % Absolute Granulocytes (1.4-6.9) x10^3/uL Basophils # (0-0.4) x10^3/uL Sodium (137-145) mmol/L Potassium (3.5-5.1) mmol/L Chloride (98-107) mmol/L Carbon Dioxide (22-30) mmol/L Anion Gap (5-15) MEQ/L BUN (9-20) mg/dL Creatinine (0.66-1.25) mg/dL Estimated GFR ML/MIN Glucose (74-106) mg/dL POC Glucometer 135 H 130 H (74 to 106) mg/dL Calcium (8.4-10.2) mg/dL Total Bilirubin (0.2-1.3) mg/dL AST (17-59) U/L ALT (0-50) U/L Alkaline Phosphatase (38-126) U/L Serum Total Protein (6.3-8.2) g/dL Albumin (3.5-5.0) g/dL Urine Color Yellow (Yellow) Urine Appearance Clear (Clear) Urine pH 7.5 (4.6-8.0) Ur Specific [place] 1.015 (1.005-1.030) Urine Protein 30 (Negative) Urine Glucose (UA) Negative (Negative) mg/dL Urine Ketones Negative (Negative) Urine Blood NHT (Negative) Urine Nitrite Negative (Negative) Urine Bilirubin Negative (Negative) Urine Urobilinogen 1.0 A (0.2) mg/dL Ur Leukocyte Esterase Trace A (Negative) U Hyaline Cast (Auto) NONE SEEN (0-2) /LPF Urine Microscopic RBC 3-5 (0-5) /HPF Urine Microscopic WBC 3-5 (0-5) /HPF Ur Epithelial Cells Rare (None Seen) /HPF Urine Bacteria Rare A (None Seen) /HPF Urine Culture Reflexed YES (NO) 02/23/23 Range/Units 21:46 WBC (4.0-10.5) x10^3/uL RBC (4.1-5.6) x10^6/uL Hgb (12.5-18.0) g/dL Hct (42-50) % MCV (78-100) fL MCH (26-32) pg MCHC (32-36) g/dL RDW (11.5-14.0) % Plt Count (150-450) x10^3/uL MPV (7.5-11.0) fL Gran % (36.0-66.0) % Immature Gran % (Auto) (0.00-0.4) % Nucleat RBC Rel Count (0.00-0.1) % Eos # (Auto) (0-0.5) x10^3/uL Immature Gran # (Auto) (0.00-0.03) x10^3u/L Absolute Lymphs (auto) (1.0-4.6) x10^3/uL Absolute Monos (auto) (0.0-1.3) x10^3/uL Absolute Nucleated RBC (0.00-0.01) x10^3u/L Lymphocytes % (24.0-44.0) % Monocytes % (0.0-12.0) % Eosinophils % (0.00-5.0) % Basophils % (0.0-0.4) % Absolute Granulocytes (1.4-6.9) x10^3/uL Basophils # (0-0.4) x10^3/uL Sodium (137-145) mmol/L Potassium (3.5-5.1) mmol/L Chloride (98-107) mmol/L Carbon Dioxide (22-30) mmol/L Anion Gap (5-15) MEQ/L BUN (9-20) mg/dL Creatinine (0.66-1.25) mg/dL Estimated GFR ML/MIN Glucose (74-106) mg/dL POC Glucometer 62 L (74 to 106) mg/dL Calcium (8.4-10.2) mg/dL Total Bilirubin (0.2-1.3) mg/dL AST (17-59) U/L ALT (0-50) U/L Alkaline Phosphatase (38-126) U/L Serum Total Protein (6.3-8.2) g/dL Albumin (3.5-5.0) g/dL Urine Color (Yellow) Urine Appearance (Clear) Urine pH (4.6-8.0) Ur Specific [place] (1.005-1.030) Urine Protein (Negative) Urine Glucose (UA) (Negative) mg/dL Urine Ketones (Negative) Urine Blood (Negative) Urine Nitrite (Negative) Urine Bilirubin (Negative) Urine Urobilinogen (0.2) mg/dL Ur Leukocyte Esterase (Negative) U Hyaline Cast (Auto) (0-2) /LPF Urine Microscopic RBC (0-5) /HPF Urine Microscopic WBC (0-5) /HPF Ur Epithelial Cells (None Seen) /HPF Urine Bacteria (None Seen) /HPF Urine Culture Reflexed (NO) Accuchecks Date 02/23/23 Date 02/23/23 Date 02/23/23 Date 02/23/23 Time 21:46 Time 20:03 Time 18:37 Time 17:57 - Radiology Impressions Radiology Exams & Impressions: Radiology Procedures Category Date Time Status HEAD WITHOUT CONTRAST [CT] Stat Exams 02/23/23 20:33 Completed Assessment/Plan (1) Hypoglycemia associated with diabetes Current Visit: Yes Status: Acute Assessment & Plan: He is confused, came from [place] from his last hospital stay for failure to thrive and UTIs. Has not been eating well. BS 30s on admission. On D5WNS now at 100ml/hr, last BS check was 68. He is awake, but very slow in response and confused (I am unsure what his baseline is like, but reportedly daughter told ER physician he is much better than he is now). Continue supportive measures. CT head unremarkable. UA was also unremarkable Code(s): E11.649 - TYPE 2 DIABETES MELLITUS WITH HYPOGLYCEMIA WITHOUT COMA (2) Altered mental status Current Visit: Yes Status: Acute Qualifiers: Altered mental status type: unspecified Qualified Code(s): R41.82 - Altered mental status, unspecified Assessment & Plan: Metabolic encephalopathy due to hypoglycemia: On D5W + NS at 100ml/hr. Monitor BS. CT head and UA unremarkable. Rest of blood work fairly benign. He is waking up some, but remains confused on my exam - he thinks he is at the rehab, his response is very slow, and he falls asleep easily Code(s): R41.82 - ALTERED MENTAL STATUS, UNSPECIFIED (3) Failure to thrive Current Visit: Yes Status: Acute Assessment & Plan: Apparently this is an on-going issue. This was his diagnosis on his last admission (a week ago). It appears to be the case now as well, not able to take of himself, not eating enough to maintain adequate sugar level. Nursing facility seems to be the best option for him at this point. Family support will be crucial as well. Code(s): HZF9073 - (4) Chronic hypotension Current Visit: No Status: Acute Assessment & Plan: He is on midodrine 10mg TID. Monitor BP and react accordingly Code(s): I95.89 - OTHER HYPOTENSION (5) Anemia Current Visit: Yes Status: Acute Assessment & Plan: Hgb 11.4, he is on oral iron. Continue same and monitor Code(s): D64.9 - ANEMIA, UNSPECIFIED (6) Chronic a-fib Current Visit: Yes Status: Acute Assessment & Plan: HR is controlled. On Amiodarone and Eliquis 5mg BID Code(s): I48.20 - CHRONIC ATRIAL FIBRILLATION, UNSPECIFIED Telemedicine Encounter - Telemedicine Encounter Telemedicine Encounter: The entirety of this encounter was performed via Telemedicine" The pt cannot give me verbal consent to have this telemedicine visit due to confusion
--- NOTE | 2023-02-24 05:26 | PCM.NOTE ---
Date and Time: 02/24/23521 Subjective Assessment: Mr. SOTO is a 68 year old male with hx of Afib, orthostatic hypotension, DMII, CAD, CVA here with AMS and low BS - 30s. He has recurrent UTIs and was here last week for complicated UTI, DC'ed to nursing facility but came back today with AMS and low BS. Patient admitted for hypoglycemia and AMS Objective Exam Wound Assessment: Skin/Wound Assessment Wound/Incision Assessment Start: 02/24/23 00:48 Text: Status: Active Freq: Q6H Protocol: Document 02/24/23 02:00 AB (Rec: 02/24/23 02:57 AB [id number]) Wound/Incision Assessment Left Toe Wound Assessment Shift Assessment Wound Type Scab Drainage Amount None General Appearance Open to air,Clean/Dry Surrounding Tissue Bright Red Primary Dressing BELINDA Comment Top of second toe Right Elbow Wound Assessment Shift Assessment Wound Type scabs Wound Stage Non Pressure Wound Drainage Amount None General Appearance Well Approximated,Open to air, Clean/Dry Surrounding Tissue Dark Red,Purple Primary Dressing BELINDA Comment Multiple scabs on R elbow Left Lower Arm Wound Assessment Shift Assessment Wound Type Skin Tear Wound Stage Non Pressure Wound Dressing Status Changed Drainage Amount Minimal Drainage Description Sanguineous General Appearance Bleeding,Unapproximated Wound Bed Greatest Portion Shiny Wound Bed Lesser Portion Red (Granulation),Shiny Surrounding Tissue Purple Topical Solution/Irrigant Saline Irrigant Primary Dressing Non-Adherent Gauze Pads Secondary Dressing Gauze Roll/Wrap Right Hand Wound Assessment Shift Assessment Wound Type Scab Drainage Amount None Drainage Odor None/Absent General Appearance Open to air,Clean/Dry Surrounding Tissue [place] Primary Dressing BELINDA Comment R knuckle on third finger Right Lower Other Wound Assessment Shift Assessment Wound Type Scab Wound Stage Non Pressure Wound Drainage Amount None General Appearance Open to air,Clean/Dry Surrounding Tissue [place] Primary Dressing [facility] [employer] Left Posterior Hand Wound Assessment Shift Assessment Wound Type scabs Wound Stage Non Pressure Wound Drainage Amount None Drainage Odor None/Absent General Appearance Well Approximated,Open to air, Clean/Dry Surrounding Tissue Purple Primary Dressing BELINDA Wound Photo Photo Taken Yes OBJECTIVE DATA Vital Signs: Vital Signs - 24 hr Temp Pulse Resp BP BP Pulse Ox 02/24/23 00:00 97.5 F 84 18 180/87 94 L 02/23/23 23:30 84 18 94 L 02/23/23 22:30 97.5 F 78 16 180/87 96 02/23/23 22:00 82 18 182/78 96 02/23/23 21:31 80 18 164/65 96 02/23/23 21:00 76 166/80 96 02/23/23 20:30 159/74 02/23/23 20:00 84 142/71 97 02/23/23 19:30 91 H 123/60 95 02/23/23 19:00 124/64 97 02/23/23 18:31 82 21 144/64 98 02/23/23 18:18 86 20 126/72 98 02/23/23 17:51 98 F Pain Assessment - Last Documented Pain Intensity 0 Intake and Output: Intake & Output 02/21/23 02/22/23 02/23/23 02/24/23 11:59 11:59 11:59 11:59 Output Total 650 Balance -650 Weight 51.7 kg Lab Results: Lab Results-Last 24 Hours 02/23/23 02/23/23 02/23/23 Range/Units 17:56 18:10 18:10 WBC 9.8 (4.0-10.5) x10^3/uL RBC 3.75 L (4.1-5.6) x10^6/uL Hgb 11.4 L (12.5-18.0) g/dL Hct 35.7 L (42-50) % MCV 95.2 (78-100) fL MCH 30.4 (26-32) pg MCHC 31.9 L (32-36) g/dL RDW 13.0 (11.5-14.0) % Plt Count 262 (150-450) x10^3/uL MPV 12.0 H (7.5-11.0) fL Gran % 79.7 H (36.0-66.0) % Immature Gran % (Auto) 0.8 H (0.00-0.4) % Nucleat RBC Rel Count 0.0 (0.00-0.1) % Eos # (Auto) 0.42 (0-0.5) x10^3/uL Immature Gran # (Auto) 0.08 H (0.00-0.03) x10^3u/L Absolute Lymphs (auto) 0.83 L (1.0-4.6) x10^3/uL Absolute Monos (auto) 0.58 (0.0-1.3) x10^3/uL Absolute Nucleated RBC 0.00 (0.00-0.01) x10^3u/L Lymphocytes % 8.5 L (24.0-44.0) % Monocytes % 5.9 (0.0-12.0) % Eosinophils % 4.3 (0.00-5.0) % Basophils % 0.8 (0.0-0.4) % Absolute Granulocytes 7.78 H (1.4-6.9) x10^3/uL Basophils # 0.08 (0-0.4) x10^3/uL Sodium 136 L (137-145) mmol/L Potassium 4.4 (3.5-5.1) mmol/L Chloride 100 (98-107) mmol/L Carbon Dioxide 29 (22-30) mmol/L Anion Gap 12.1 (5-15) MEQ/L BUN 24 H (9-20) mg/dL Creatinine 0.81 (0.66-1.25) mg/dL Estimated GFR > 60.0 ML/MIN Glucose 35 L* (74-106) mg/dL POC Glucometer 55 L (74 to 106) mg/dL Calcium 9.5 (8.4-10.2) mg/dL Total Bilirubin 0.60 (0.2-1.3) mg/dL AST 35 (17-59) U/L ALT 31 (0-50) U/L Alkaline Phosphatase 162 H (38-126) U/L Serum Total Protein 7.1 (6.3-8.2) g/dL Albumin 4.2 (3.5-5.0) g/dL Urine Color (Yellow) Urine Appearance (Clear) Urine pH (4.6-8.0) Ur Specific [place] (1.005-1.030) Urine Protein (Negative) Urine Glucose (UA) (Negative) mg/dL Urine Ketones (Negative) Urine Blood (Negative) Urine Nitrite (Negative) Urine Bilirubin (Negative) Urine Urobilinogen (0.2) mg/dL Ur Leukocyte Esterase (Negative) U Hyaline Cast (Auto) (0-2) /LPF Urine Microscopic RBC (0-5) /HPF Urine Microscopic WBC (0-5) /HPF Ur Epithelial Cells (None Seen) /HPF Urine Bacteria (None Seen) /HPF Urine Culture Reflexed (NO) 02/23/23 02/23/23 02/23/23 Range/Units 18:36 20:03 21:25 WBC (4.0-10.5) x10^3/uL RBC (4.1-5.6) x10^6/uL Hgb (12.5-18.0) g/dL Hct (42-50) % MCV (78-100) fL MCH (26-32) pg MCHC (32-36) g/dL RDW (11.5-14.0) % Plt Count (150-450) x10^3/uL MPV (7.5-11.0) fL Gran % (36.0-66.0) % Immature Gran % (Auto) (0.00-0.4) % Nucleat RBC Rel Count (0.00-0.1) % Eos # (Auto) (0-0.5) x10^3/uL Immature Gran # (Auto) (0.00-0.03) x10^3u/L Absolute Lymphs (auto) (1.0-4.6) x10^3/uL Absolute Monos (auto) (0.0-1.3) x10^3/uL Absolute Nucleated RBC (0.00-0.01) x10^3u/L Lymphocytes % (24.0-44.0) % Monocytes % (0.0-12.0) % Eosinophils % (0.00-5.0) % Basophils % (0.0-0.4) % Absolute Granulocytes (1.4-6.9) x10^3/uL Basophils # (0-0.4) x10^3/uL Sodium (137-145) mmol/L Potassium (3.5-5.1) mmol/L Chloride (98-107) mmol/L Carbon Dioxide (22-30) mmol/L Anion Gap (5-15) MEQ/L BUN (9-20) mg/dL Creatinine (0.66-1.25) mg/dL Estimated GFR ML/MIN Glucose (74-106) mg/dL POC Glucometer 135 H 130 H (74 to 106) mg/dL Calcium (8.4-10.2) mg/dL Total Bilirubin (0.2-1.3) mg/dL AST (17-59) U/L ALT (0-50) U/L Alkaline Phosphatase (38-126) U/L Serum Total Protein (6.3-8.2) g/dL Albumin (3.5-5.0) g/dL Urine Color Yellow (Yellow) Urine Appearance Clear (Clear) Urine pH 7.5 (4.6-8.0) Ur Specific [place] 1.015 (1.005-1.030) Urine Protein 30 (Negative) Urine Glucose (UA) Negative (Negative) mg/dL Urine Ketones Negative (Negative) Urine Blood NHT (Negative) Urine Nitrite Negative (Negative) Urine Bilirubin Negative (Negative) Urine Urobilinogen 1.0 A (0.2) mg/dL Ur Leukocyte Esterase Trace A (Negative) U Hyaline Cast (Auto) NONE SEEN (0-2) /LPF Urine Microscopic RBC 3-5 (0-5) /HPF Urine Microscopic WBC 3-5 (0-5) /HPF Ur Epithelial Cells Rare (None Seen) /HPF Urine Bacteria Rare A (None Seen) /HPF Urine Culture Reflexed YES (NO) 02/23/23 02/23/23 02/24/23 Range/Units 21:46 23:13 04:05 WBC (4.0-10.5) x10^3/uL RBC (4.1-5.6) x10^6/uL Hgb (12.5-18.0) g/dL Hct (42-50) % MCV (78-100) fL MCH (26-32) pg MCHC (32-36) g/dL RDW (11.5-14.0) % Plt Count (150-450) x10^3/uL MPV (7.5-11.0) fL Gran % (36.0-66.0) % Immature Gran % (Auto) (0.00-0.4) % Nucleat RBC Rel Count (0.00-0.1) % Eos # (Auto) (0-0.5) x10^3/uL Immature Gran # (Auto) (0.00-0.03) x10^3u/L Absolute Lymphs (auto) (1.0-4.6) x10^3/uL Absolute Monos (auto) (0.0-1.3) x10^3/uL Absolute Nucleated RBC (0.00-0.01) x10^3u/L Lymphocytes % (24.0-44.0) % Monocytes % (0.0-12.0) % Eosinophils % (0.00-5.0) % Basophils % (0.0-0.4) % Absolute Granulocytes (1.4-6.9) x10^3/uL Basophils # (0-0.4) x10^3/uL Sodium (137-145) mmol/L Potassium (3.5-5.1) mmol/L Chloride (98-107) mmol/L Carbon Dioxide (22-30) mmol/L Anion Gap (5-15) MEQ/L BUN (9-20) mg/dL Creatinine (0.66-1.25) mg/dL Estimated GFR ML/MIN Glucose (74-106) mg/dL POC Glucometer 62 L 68 L 149 H (74 to 106) mg/dL Calcium (8.4-10.2) mg/dL Total Bilirubin (0.2-1.3) mg/dL AST (17-59) U/L ALT (0-50) U/L Alkaline Phosphatase (38-126) U/L Serum Total Protein (6.3-8.2) g/dL Albumin (3.5-5.0) g/dL Urine Color (Yellow) Urine Appearance (Clear) Urine pH (4.6-8.0) Ur Specific [place] (1.005-1.030) Urine Protein (Negative) Urine Glucose (UA) (Negative) mg/dL Urine Ketones (Negative) Urine Blood (Negative) Urine Nitrite (Negative) Urine Bilirubin (Negative) Urine Urobilinogen (0.2) mg/dL Ur Leukocyte Esterase (Negative) U Hyaline Cast (Auto) (0-2) /LPF Urine Microscopic RBC (0-5) /HPF Urine Microscopic WBC (0-5) /HPF Ur Epithelial Cells (None Seen) /HPF Urine Bacteria (None Seen) /HPF Urine Culture Reflexed (NO) Radiology Exams: Radiology Procedures Category Date Time Status HEAD WITHOUT CONTRAST [CT] Stat Exams 02/23/23 20:33 Completed Assessment/Plan (1) Hypoglycemia associated with diabetes Current Visit: Yes Status: Acute Assessment & Plan: He is confused, came from [place] from his last hospital stay for failure to thrive and UTIs. Has not been eating well. BS 30s on admission. On D5WNS now at 100ml/hr, last BS check was 68. He is awake, but very slow in response and confused (I am unsure what his baseline is like, but reportedly daughter told ER physician he is much better than he is now). Continue supportive measures. CT head unremarkable. UA was also unremarkable Code(s): E11.649 - TYPE 2 DIABETES MELLITUS WITH HYPOGLYCEMIA WITHOUT COMA (2) Altered mental status Current Visit: Yes Status: Acute Qualifiers: Altered mental status type: unspecified Qualified Code(s): R41.82 - Altered mental status, unspecified Assessment & Plan: Metabolic encephalopathy due to hypoglycemia: On D5W + NS at 100ml/hr. Monitor BS. CT head and UA unremarkable. Rest of blood work fairly benign. He is waking up some, but remains confused on my exam - he thinks he is at the rehab, his response is very slow, and he falls asleep easily Code(s): R41.82 - ALTERED MENTAL STATUS, UNSPECIFIED (3) Anemia Current Visit: Yes Status: Acute Assessment & Plan: Hgb 11.4, he is on oral iron. Continue same and monitor Code(s): D64.9 - ANEMIA, UNSPECIFIED (4) Chronic a-fib Current Visit: Yes Status: Acute Assessment & Plan: HR is controlled. On Amiodarone and Eliquis 5mg BID Code(s): I48.20 - CHRONIC ATRIAL FIBRILLATION, UNSPECIFIED (5) Failure to thrive Current Visit: Yes Status: Acute Assessment & Plan: Apparently this is an on-going issue. This was his diagnosis on his last admission (a week ago). It appears to be the case now as well, not able to take of himself, not eating enough to maintain adequate sugar level. Nursing facility seems to be the best option for him at this point. Family support will be crucial as well. Code(s): [id number] -
[2023-02-24 05:43] LABS: Hematocrit 29.5 % (42-50); Hemoglobin 9.6 g/dL (12.5-18.0); Mean Cell Volume 92.8 fL (78-100); Mean Corpuscular Hemoglobin 30.2 pg (26-32); Mean Corpuscular Hgb Concent. 32.5 g/dL (32-36); Mean Platelet Volume 11.8 fL (7.5-11.0); Platelet Count 199 x10^3/uL (150-450); Red Blood Count 3.18 x10^6/uL (4.1-5.6); Red Cell Distribution Width 13.1 % (11.5-14.0); White Blood Count 6.8 x10^3/uL (4.0-10.5)
[2023-02-24 06:17] LABS: ANION GAP 7.2 MEQ/L (5-15); BLOOD UREA NITROGEN 13 mg/dL (9-20); CHLORIDE 105 mmol/L (98-107); Calcium 8.5 mg/dL (8.4-10.2); Carbon Dioxide 26 mmol/L (22-30); Creatinine 1 0.52 mg/dL (0.66-1.25); EST GLOMERULAR FILTRATION RATE > 60.0 ML/MIN; Glucose 183 mg/dL (74-106); PREALBUMIN 16.35 mg/dL (17.6-36.0); Potassium 4.3 mmol/L (3.5-5.1); SODIUM 134 mmol/L (137-145)
[2023-02-24] MEDS: VENTOLIN COMMON CANISTER IH SCH ×2 (07:40→10:30)
[2023-02-24] MEDS ORDERED: MEDICATION INTERVENTION MC SCH ×3 (07:45)
[2023-02-24] MEDS ORDERED: MAG-OX 400 PO SCH (10:00)
[2023-02-24] MEDS ORDERED: Multaq 400 MG PO SCH (10:00)
[2023-02-24] MEDS ORDERED: NON-FORMULARY ITEM (Budesonide [Budesonide Dr] 3 MG Capdr...Er) PO SCH (10:00)
[2023-02-24] MEDS ORDERED: ELIQUIS 2.5 MG TABLET PO SCH (10:00)
[2023-02-24] MEDS ORDERED: ECOTRIN 81 MG PO SCH (10:00)
[2023-02-24] MEDS ORDERED: Proscar 5 MG PO SCH (10:00)
[2023-02-24] MEDS ORDERED: Protonix 40MG Tablet PO SCH (10:00)
[2023-02-24] MEDS ORDERED: FATTY ACIDS PO SCH (10:00)
[2023-02-24] MEDS ORDERED: ALPHA LIPOIC ACID 300 MG PO SCH (10:00)
[2023-02-24] MEDS ORDERED: NON-FORMULARY ITEM (Apixaban [Eliquis] 5 MG Tablet) PO SCH (10:00)
[2023-02-24] MEDS ORDERED: ENOXAPARIN SODIUM SQ SCH (10:00)
[2023-02-24] MEDS ORDERED: FEOSOL 325 MG PO SCH (10:00)
[2023-02-24] MEDS ORDERED: FISH OIL 1,000 MG CAPSULE PO SCH (10:00)
[2023-02-24] MEDS ORDERED: PROAMATINE PO SCH (10:00)
[2023-02-24] MEDS ORDERED: OMEGA PO SCH (10:00)
--- NOTE | 2023-02-24 10:28 | PCM.DS ---
Discharge Summary Date of Admission: 02/23/23 22:30 Date of Discharge: 02/24/23 Admitting Physician: SIRENA BRINK DO Primary Care Provider: JOSE ALBERTO GRAJEDA Allergies Allergies acetaminophen [From Percocet] Adverse Reaction (Verified 02/09/23 20:12) confusion hydromorphone [From Dilaudid] Adverse Reaction (Verified 02/09/23 20:12) confusion morphine Adverse Reaction (Verified 02/09/23 20:12) confusion oxycodone [From Percocet] Adverse Reaction (Verified 02/09/23 20:12) confusion Hospital Summary - Hospital Course Hospital Course: Mr. SOTO is a 68 year old male with hx of Afib, orthostatic hypotension, DMII, CAD, CVA here with AMS and low BS - 30s. He has recurrent UTIs and was here last week for complicated UTI, DC'ed to nursing facility but came back today with AMS and low BS. CT head negative for acute findings. Patient admitted for hypoglycemia and AMS. I believe the increase of AMS was due to his low blood sugar. During hospital course hypoglycemia corrected. Mentation at baseline. Patient will discharge back to nursing facility. Discharge Note New Diagnosis: Hypoglycemia New Medications: Levemier dose decrease Follow Up: PCP Latest Assessment & Plan (1) Hypoglycemia associated with diabetes Current Visit: Yes Status: Acute Assessment & Plan: He is confused, [facility] for failure to thrive and UTIs. Has not been eating well. BS 30s on admission. On D5WNS now at 100ml/hr, last BS check was 68. He is awake, but very slow in response and confused (I am unsure what his baseline is like, but reportedly daughter told ER physician he is much better than he is now). Continue supportive measures. CT head unremarkable. UA was also unremarkable Code(s): E11.649 - TYPE 2 DIABETES MELLITUS WITH HYPOGLYCEMIA WITHOUT COMA (2) Altered mental status Current Visit: Yes Status: Acute Qualifiers: Altered mental status type: unspecified Qualified Code(s): R41.82 - Altered mental status, unspecified Assessment & Plan: Metabolic encephalopathy due to hypoglycemia: On D5W + NS at 100ml/hr. Monitor BS. CT head and UA unremarkable. Rest of blood work fairly benign. He is waking up some, but remains confused on my exam - he thinks he is at the rehab, his response is very slow, and he falls asleep easily Code(s): R41.82 - ALTERED MENTAL STATUS, UNSPECIFIED (3) Failure to thrive Current Visit: Yes Status: Acute Assessment & Plan: Apparently this is an on-going issue. This was his diagnosis on his last admission (a week ago). It appears to be the case now as well, not able to take of himself, not eating enough to maintain adequate sugar level. Nursing facility seems to be the best option for him at this point. Family support will be crucial as well. Code(s): [id number] - (4) Chronic hypotension Current Visit: No Status: Acute Assessment & Plan: He is on midodrine 10mg TID. Monitor BP and react accordingly Code(s): I95.89 - OTHER HYPOTENSION (5) Anemia Current Visit: Yes Status: Acute Assessment & Plan: Hgb 11.4, he is on oral iron. Continue same and monitor Code(s): D64.9 - ANEMIA, UNSPECIFIED (6) Chronic a-fib Current Visit: Yes Status: Acute Assessment & Plan: HR is controlled. On Amiodarone and Eliquis 5mg BID Code(s): I48.20 - CHRONIC ATRIAL FIBRILLATION, UNSPECIFIED I spent 35 minutes [id number] with the patient on the day of discharge performing discharge exam, discussing hospital stay and discharge instructions with patient and caregivers, preparation of discharge records, prescriptions & referral forms and addressing any questions/concerns the patient had as documented above. - Vitals & Intake/Output Vital Signs: Vital Signs Temperature 97.7 F 02/24/23 06:48 Pulse Rate 88 02/24/23 06:48 Respiratory Rate 15 02/24/23 06:48 Blood Pressure 149/66 02/24/23 06:48 O2 Sat by Pulse Oximetry 94 L 02/24/23 06:48 Intake & Output: Intake & Output 02/21/23 02/22/23 02/23/23 02/24/23 11:59 11:59 11:59 11:59 Output Total 1924 Balance -1924 Weight 54.7 kg - Lab Result Diagrams: 02/24/23 05:27 02/24/23 05:27 Lab Results-Last 24 Hrs: Lab Results-Last 24 Hours 02/23/23 02/23/23 02/23/23 Range/Units 17:56 18:10 18:10 WBC 9.8 (4.0-10.5) x10^3/uL RBC 3.75 L (4.1-5.6) x10^6/uL Hgb 11.4 L (12.5-18.0) g/dL Hct 35.7 L (42-50) % MCV 95.2 (78-100) fL MCH 30.4 (26-32) pg MCHC 31.9 L (32-36) g/dL RDW 13.0 (11.5-14.0) % Plt Count 262 (150-450) x10^3/uL MPV 12.0 H (7.5-11.0) fL Gran % 79.7 H (36.0-66.0) % Immature Gran % (Auto) 0.8 H (0.00-0.4) % Nucleat RBC Rel Count 0.0 (0.00-0.1) % Eos # (Auto) 0.42 (0-0.5) x10^3/uL Immature Gran # (Auto) 0.08 H (0.00-0.03) x10^3u/L Absolute Lymphs (auto) 0.83 L (1.0-4.6) x10^3/uL Absolute Monos (auto) 0.58 (0.0-1.3) x10^3/uL Absolute Nucleated RBC 0.00 (0.00-0.01) x10^3u/L Lymphocytes % 8.5 L (24.0-44.0) % Monocytes % 5.9 (0.0-12.0) % Eosinophils % 4.3 (0.00-5.0) % Basophils % 0.8 (0.0-0.4) % Absolute Granulocytes 7.78 H (1.4-6.9) x10^3/uL Basophils # 0.08 (0-0.4) x10^3/uL Sodium 136 L (137-145) mmol/L Potassium 4.4 (3.5-5.1) mmol/L Chloride 100 (98-107) mmol/L Carbon Dioxide 29 (22-30) mmol/L Anion Gap 12.1 (5-15) MEQ/L BUN 24 H (9-20) mg/dL Creatinine 0.81 (0.66-1.25) mg/dL Estimated GFR > 60.0 ML/MIN Glucose 35 L* (74-106) mg/dL POC Glucometer 55 L (74 to 106) mg/dL Calcium 9.5 (8.4-10.2) mg/dL Total Bilirubin 0.60 (0.2-1.3) mg/dL AST 35 (17-59) U/L ALT 31 (0-50) U/L Alkaline Phosphatase 162 H (38-126) U/L Serum Total Protein 7.1 (6.3-8.2) g/dL Albumin 4.2 (3.5-5.0) g/dL Prealbumin (17.6-36.0) mg/dL Urine Color (Yellow) Urine Appearance (Clear) Urine pH (4.6-8.0) Ur Specific [place] (1.005-1.030) Urine Protein (Negative) Urine Glucose (UA) (Negative) mg/dL Urine Ketones (Negative) Urine Blood (Negative) Urine Nitrite (Negative) Urine Bilirubin (Negative) Urine Urobilinogen (0.2) mg/dL Ur Leukocyte Esterase (Negative) U Hyaline Cast (Auto) (0-2) /LPF Urine Microscopic RBC (0-5) /HPF Urine Microscopic WBC (0-5) /HPF Ur Epithelial Cells (None Seen) /HPF Urine Bacteria (None Seen) /HPF Urine Culture Reflexed (NO) 02/23/23 02/23/23 02/23/23 Range/Units 18:36 20:03 21:25 WBC (4.0-10.5) x10^3/uL RBC (4.1-5.6) x10^6/uL Hgb (12.5-18.0) g/dL Hct (42-50) % MCV (78-100) fL MCH (26-32) pg MCHC (32-36) g/dL RDW (11.5-14.0) % Plt Count (150-450) x10^3/uL MPV (7.5-11.0) fL Gran % (36.0-66.0) % Immature Gran % (Auto) (0.00-0.4) % Nucleat RBC Rel Count (0.00-0.1) % Eos # (Auto) (0-0.5) x10^3/uL Immature Gran # (Auto) (0.00-0.03) x10^3u/L Absolute Lymphs (auto) (1.0-4.6) x10^3/uL Absolute Monos (auto) (0.0-1.3) x10^3/uL Absolute Nucleated RBC (0.00-0.01) x10^3u/L Lymphocytes % (24.0-44.0) % Monocytes % (0.0-12.0) % Eosinophils % (0.00-5.0) % Basophils % (0.0-0.4) % Absolute Granulocytes (1.4-6.9) x10^3/uL Basophils # (0-0.4) x10^3/uL Sodium (137-145) mmol/L Potassium (3.5-5.1) mmol/L Chloride (98-107) mmol/L Carbon Dioxide (22-30) mmol/L Anion Gap (5-15) MEQ/L BUN (9-20) mg/dL Creatinine (0.66-1.25) mg/dL Estimated GFR ML/MIN Glucose (74-106) mg/dL POC Glucometer 135 H 130 H (74 to 106) mg/dL Calcium (8.4-10.2) mg/dL Total Bilirubin (0.2-1.3) mg/dL AST (17-59) U/L ALT (0-50) U/L Alkaline Phosphatase (38-126) U/L Serum Total Protein (6.3-8.2) g/dL Albumin (3.5-5.0) g/dL Prealbumin (17.6-36.0) mg/dL Urine Color Yellow (Yellow) Urine Appearance Clear (Clear) Urine pH 7.5 (4.6-8.0) Ur Specific [place] 1.015 (1.005-1.030) Urine Protein 30 (Negative) Urine Glucose (UA) Negative (Negative) mg/dL Urine Ketones Negative (Negative) Urine Blood NHT (Negative) Urine Nitrite Negative (Negative) Urine Bilirubin Negative (Negative) Urine Urobilinogen 1.0 A (0.2) mg/dL Ur Leukocyte Esterase Trace A (Negative) U Hyaline Cast (Auto) NONE SEEN (0-2) /LPF Urine Microscopic RBC 3-5 (0-5) /HPF Urine Microscopic WBC 3-5 (0-5) /HPF Ur Epithelial Cells Rare (None Seen) /HPF Urine Bacteria Rare A (None Seen) /HPF Urine Culture Reflexed YES (NO) 02/23/23 02/23/23 02/24/23 Range/Units 21:46 23:13 04:05 WBC (4.0-10.5) x10^3/uL RBC (4.1-5.6) x10^6/uL Hgb (12.5-18.0) g/dL Hct (42-50) % MCV (78-100) fL MCH (26-32) pg MCHC (32-36) g/dL RDW (11.5-14.0) % Plt Count (150-450) x10^3/uL MPV (7.5-11.0) fL Gran % (36.0-66.0) % Immature Gran % (Auto) (0.00-0.4) % Nucleat RBC Rel Count (0.00-0.1) % Eos # (Auto) (0-0.5) x10^3/uL Immature Gran # (Auto) (0.00-0.03) x10^3u/L Absolute Lymphs (auto) (1.0-4.6) x10^3/uL Absolute Monos (auto) (0.0-1.3) x10^3/uL Absolute Nucleated RBC (0.00-0.01) x10^3u/L Lymphocytes % (24.0-44.0) % Monocytes % (0.0-12.0) % Eosinophils % (0.00-5.0) % Basophils % (0.0-0.4) % Absolute Granulocytes (1.4-6.9) x10^3/uL Basophils # (0-0.4) x10^3/uL Sodium (137-145) mmol/L Potassium (3.5-5.1) mmol/L Chloride (98-107) mmol/L Carbon Dioxide (22-30) mmol/L Anion Gap (5-15) MEQ/L BUN (9-20) mg/dL Creatinine (0.66-1.25) mg/dL Estimated GFR ML/MIN Glucose (74-106) mg/dL POC Glucometer 62 L 68 L 149 H (74 to 106) mg/dL Calcium (8.4-10.2) mg/dL Total Bilirubin (0.2-1.3) mg/dL AST (17-59) U/L ALT (0-50) U/L Alkaline Phosphatase (38-126) U/L Serum Total Protein (6.3-8.2) g/dL Albumin (3.5-5.0) g/dL Prealbumin (17.6-36.0) mg/dL Urine Color (Yellow) Urine Appearance (Clear) Urine pH (4.6-8.0) Ur Specific [place] (1.005-1.030) Urine Protein (Negative) Urine Glucose (UA) (Negative) mg/dL Urine Ketones (Negative) Urine Blood (Negative) Urine Nitrite (Negative) Urine Bilirubin (Negative) Urine Urobilinogen (0.2) mg/dL Ur Leukocyte Esterase (Negative) U Hyaline Cast (Auto) (0-2) /LPF Urine Microscopic RBC (0-5) /HPF Urine Microscopic WBC (0-5) /HPF Ur Epithelial Cells (None Seen) /HPF Urine Bacteria (None Seen) /HPF Urine Culture Reflexed (NO) 02/24/23 02/24/23 Range/Units 05:27 05:27 WBC 6.8 (4.0-10.5) x10^3/uL RBC 3.18 L (4.1-5.6) x10^6/uL Hgb 9.6 L (12.5-18.0) g/dL Hct 29.5 L (42-50) % MCV 92.8 (78-100) fL MCH 30.2 (26-32) pg MCHC 32.5 (32-36) g/dL RDW 13.1 (11.5-14.0) % Plt Count 199 (150-450) x10^3/uL MPV 11.8 H (7.5-11.0) fL Gran % (36.0-66.0) % Immature Gran % (Auto) (0.00-0.4) % Nucleat RBC Rel Count (0.00-0.1) % Eos # (Auto) (0-0.5) x10^3/uL Immature Gran # (Auto) (0.00-0.03) x10^3u/L Absolute Lymphs (auto) (1.0-4.6) x10^3/uL Absolute Monos (auto) (0.0-1.3) x10^3/uL Absolute Nucleated RBC (0.00-0.01) x10^3u/L Lymphocytes % (24.0-44.0) % Monocytes % (0.0-12.0) % Eosinophils % (0.00-5.0) % Basophils % (0.0-0.4) % Absolute Granulocytes (1.4-6.9) x10^3/uL Basophils # (0-0.4) x10^3/uL Sodium 134 L (137-145) mmol/L Potassium 4.3 (3.5-5.1) mmol/L Chloride 105 (98-107) mmol/L Carbon Dioxide 26 (22-30) mmol/L Anion Gap 7.2 (5-15) MEQ/L BUN 13 (9-20) mg/dL Creatinine 0.52 L (0.66-1.25) mg/dL Estimated GFR > 60.0 ML/MIN Glucose 183 H (74-106) mg/dL POC Glucometer (74 to 106) mg/dL Calcium 8.5 (8.4-10.2) mg/dL Total Bilirubin (0.2-1.3) mg/dL AST (17-59) U/L ALT (0-50) U/L Alkaline Phosphatase (38-126) U/L Serum Total Protein (6.3-8.2) g/dL Albumin (3.5-5.0) g/dL Prealbumin 16.35 L (17.6-36.0) mg/dL Urine Color (Yellow) Urine Appearance (Clear) Urine pH (4.6-8.0) Ur Specific [place] (1.005-1.030) Urine Protein (Negative) Urine Glucose (UA) (Negative) mg/dL Urine Ketones (Negative) Urine Blood (Negative) Urine Nitrite (Negative) Urine Bilirubin (Negative) Urine Urobilinogen (0.2) mg/dL Ur Leukocyte Esterase (Negative) U Hyaline Cast (Auto) (0-2) /LPF Urine Microscopic RBC (0-5) /HPF Urine Microscopic WBC (0-5) /HPF Ur Epithelial Cells (None Seen) /HPF Urine Bacteria (None Seen) /HPF Urine Culture Reflexed (NO) Micro Results-Entire Visit: Accuchecks Date 02/24/23 Date 02/23/23 Date 02/23/23 Date 02/23/23 Date 02/23/23 Time 06:53 Time 21:46 Time 20:03 Time 18:37 Time 17:57 - Radiology Exams Ordered Rad Exams-Entire Visit: Radiology Procedures Category Date Time Status HEAD WITHOUT CONTRAST [CT] Stat Exams 02/23/23 20:33 Completed - Procedures and Test Procedures and Tests throughout Hospitalization: Therapy Orders & Screens 02/23/23 23:40 Respiratory Therapy Assessment DAILY Comment: Diagnosis: hypoglycemia Discharge Exam General Appearance: no apparent distress Neurologic Exam: alert, confusion, other (Orientated to self/president, slow to respond) Eye Exam: PERRL Ears, Nose, Throat Exam: normal ENT inspection Respiratory Exam: normal breath sounds, lungs clear Cardiovascular Exam: regular rate/rhythm, normal heart sounds Gastrointestinal/Abdomen Exam: soft, normal bowel sounds Male Genitalia Exam: deferred Rectal Exam: deferred Back Exam: normal inspection Extremity Exam: normal inspection Skin Exam: normal color Wound Assessment: Skin/Wound Assessment Wound/Incision Assessment Start: 02/24/23 00:48 Text: Status: Active Freq: Q6H Protocol: Document 02/24/23 02:00 AB (Rec: 02/24/23 02:57 AB [id number]) Wound/Incision Assessment Left Toe Wound Assessment Shift Assessment Wound Type Scab Drainage Amount None General Appearance Open to air,Clean/Dry Surrounding Tissue Bright Red Primary Dressing BELINDA Comment Top of second toe Right Elbow Wound Assessment Shift Assessment Wound Type scabs Wound Stage Non Pressure Wound Drainage Amount None General Appearance Well Approximated,Open to air, Clean/Dry Surrounding Tissue Dark Red,Purple Primary Dressing BELINDA Comment Multiple scabs on R elbow Left Lower Arm Wound Assessment Shift Assessment Wound Type Skin Tear Wound Stage Non Pressure Wound Dressing Status Changed Drainage Amount Minimal Drainage Description Sanguineous General Appearance Bleeding,Unapproximated Wound Bed Greatest Portion Shiny Wound Bed Lesser Portion Red (Granulation),Shiny Surrounding Tissue Purple Topical Solution/Irrigant Saline Irrigant Primary Dressing Non-Adherent Gauze Pads Secondary Dressing Gauze Roll/Wrap Right Hand Wound Assessment Shift Assessment Wound Type Scab Drainage Amount None Drainage Odor None/Absent General Appearance Open to air,Clean/Dry Surrounding Tissue [place] Primary Dressing BELINDA Comment R knuckle on third finger Right Lower Other Wound Assessment Shift Assessment Wound Type Scab Wound Stage Non Pressure Wound Drainage Amount None General Appearance Open to air,Clean/Dry Surrounding Tissue [place] Primary Dressing BELINDA Left Posterior Hand Wound Assessment Shift Assessment Wound Type scabs Wound Stage Non Pressure Wound Drainage Amount None Drainage Odor None/Absent General Appearance Well Approximated,Open to air, Clean/Dry Surrounding Tissue Purple Primary Dressing [employer] Wound Photo Photo Taken Yes Final Diagnosis/Problem List - Final Discharge Diagnosis/Problem (1) Hypoglycemia associated with diabetes Current Visit: Yes Status: Resolved Code(s): E11.649 - TYPE 2 DIABETES MELLITUS WITH HYPOGLYCEMIA WITHOUT COMA (2) Altered mental status Current Visit: Yes Status: Chronic Code(s): R41.82 - ALTERED MENTAL STATUS, UNSPECIFIED (3) Anemia Current Visit: Yes Status: Chronic Code(s): D64.9 - ANEMIA, UNSPECIFIED (4) Chronic a-fib Current Visit: Yes Status: Chronic Code(s): I48.20 - CHRONIC ATRIAL FIBRILLATION, UNSPECIFIED (5) Failure to thrive Current Visit: Yes Status: Chronic Code(s): [id number] - - Discharge Disposition: Home, Self-Care Condition: Stable Prescriptions: No Action Budesonide [Budesonide Dr] 9 mg PO DAILY Insulin Detemir [Levemir] 24 units SQ DAILY Albuterol Sulfate [Albuterol Sulfate Hfa] 2 puff IH QID Dronedarone Hydrochloride 400* [Multaq 400 MG] 200 mg PO BID Tamsulosin HCl 0.4 mg [Flomax 0.4 MG] 0.8 mg PO HS Atorvastatin Calcium 40 mg PO QHS Apixaban [Eliquis] 5 mg PO BID Psyllium Packet [Metamucil PACKET] 1 packet PO DAILY Midodrine HCl [Proamatine] 10 mg PO TID Arg[place]-3 Fatty Acids [Argyle-3] 1 cap PO DAILY Cholecalciferol (Vitamin D3) [Vitamin D3] 1 each PO WEEKLY Alpha Lipoic Acid 300 mg PO BID Magnesium Oxide 400 mg [Mag-Ox 400] 400 mg PO DAILY Ferrous Sulfate 325 mg [Feosol 325 mg] 1 tab PO DAILY Aspirin EC 81 mg [Ecotrin 81 mg] 81 mg PO DAILY Finasteride 5 mg [Proscar 5 MG] 5 mg PO DAILY PANTOPRAZOLE 40 mg Tablet [Protonix 40MG Tablet] 40 mg PO DAILY Insulin Aspart (Niacinamide) [Fiasp 100 Unit/ml Flextouch] 1 unit SQ UD PRN PRN Reason: dm Acetaminophen 325 mg [Tylenol 325 mg] 2 tab PO Q4H PRN PRN Reason: pain/fever Tramadol HCl 50 mg [Ultram 50 mg] 50 mg PO Q6H PRN PRN Reason: Pain Follow up with: JOSE ALBERTO GRAJEDA [Primary Care Provider] -
--- NOTE | 2023-02-24 10:33 | PCM.DS ---
Discharge Summary Date of Admission: 02/23/23 22:30 Admitting Physician: SIRENA BRINK DO Primary Care Provider: JOSE ALBERTO GRAJEDA Allergies Allergies acetaminophen [From Percocet] Adverse Reaction (Verified 02/09/23 20:12) confusion hydromorphone [From Dilaudid] Adverse Reaction (Verified 02/09/23 20:12) confusion morphine Adverse Reaction (Verified 02/09/23 20:12) confusion oxycodone [From Percocet] Adverse Reaction (Verified 02/09/23 20:12) confusion Hospital Summary - Vitals & Intake/Output Vital Signs: Vital Signs Temperature 97.7 F 02/24/23 06:48 Pulse Rate 88 02/24/23 06:48 Respiratory Rate 15 02/24/23 06:48 Blood Pressure 149/66 02/24/23 06:48 O2 Sat by Pulse Oximetry 94 L 02/24/23 06:48 Intake & Output: Intake & Output 02/21/23 02/22/23 02/23/23 02/24/23 11:59 11:59 11:59 11:59 Intake Total 120 Output Total 1925 Balance -1805 Weight 54.7 kg - Lab Result Diagrams: 02/24/23 05:27 02/24/23 05:27 Lab Results-Last 24 Hrs: Lab Results-Last 24 Hours 02/23/23 02/23/23 02/23/23 Range/Units 17:56 18:10 18:10 WBC 9.8 (4.0-10.5) x10^3/uL RBC 3.75 L (4.1-5.6) x10^6/uL Hgb 11.4 L (12.5-18.0) g/dL Hct 35.7 L (42-50) % MCV 95.2 (78-100) fL MCH 30.4 (26-32) pg MCHC 31.9 L (32-36) g/dL RDW 13.0 (11.5-14.0) % Plt Count 262 (150-450) x10^3/uL MPV 12.0 H (7.5-11.0) fL Gran % 79.7 H (36.0-66.0) % Immature Gran % (Auto) 0.8 H (0.00-0.4) % Nucleat RBC Rel Count 0.0 (0.00-0.1) % Eos # (Auto) 0.42 (0-0.5) x10^3/uL Immature Gran # (Auto) 0.08 H (0.00-0.03) x10^3u/L Absolute Lymphs (auto) 0.83 L (1.0-4.6) x10^3/uL Absolute Monos (auto) 0.58 (0.0-1.3) x10^3/uL Absolute Nucleated RBC 0.00 (0.00-0.01) x10^3u/L Lymphocytes % 8.5 L (24.0-44.0) % Monocytes % 5.9 (0.0-12.0) % Eosinophils % 4.3 (0.00-5.0) % Basophils % 0.8 (0.0-0.4) % Absolute Granulocytes 7.78 H (1.4-6.9) x10^3/uL Basophils # 0.08 (0-0.4) x10^3/uL Sodium 136 L (137-145) mmol/L Potassium 4.4 (3.5-5.1) mmol/L Chloride 100 (98-107) mmol/L Carbon Dioxide 29 (22-30) mmol/L Anion Gap 12.1 (5-15) MEQ/L BUN 24 H (9-20) mg/dL Creatinine 0.81 (0.66-1.25) mg/dL Estimated GFR > 60.0 ML/MIN Glucose 35 L* (74-106) mg/dL POC Glucometer 55 L (74 to 106) mg/dL Calcium 9.5 (8.4-10.2) mg/dL Total Bilirubin 0.60 (0.2-1.3) mg/dL AST 35 (17-59) U/L ALT 31 (0-50) U/L Alkaline Phosphatase 162 H (38-126) U/L Serum Total Protein 7.1 (6.3-8.2) g/dL Albumin 4.2 (3.5-5.0) g/dL Prealbumin (17.6-36.0) mg/dL Urine Color (Yellow) Urine Appearance (Clear) Urine pH (4.6-8.0) Ur Specific Sheldon (1.005-1.030) Urine Protein (Negative) Urine Glucose (UA) (Negative) mg/dL Urine Ketones (Negative) Urine Blood (Negative) Urine Nitrite (Negative) Urine Bilirubin (Negative) Urine Urobilinogen (0.2) mg/dL Ur Leukocyte Esterase (Negative) U Hyaline Cast (Auto) (0-2) /LPF Urine Microscopic RBC (0-5) /HPF Urine Microscopic WBC (0-5) /HPF Ur Epithelial Cells (None Seen) /HPF Urine Bacteria (None Seen) /HPF Urine Culture Reflexed (NO) 02/23/23 02/23/23 02/23/23 Range/Units 18:36 20:03 21:25 WBC (4.0-10.5) x10^3/uL RBC (4.1-5.6) x10^6/uL Hgb (12.5-18.0) g/dL Hct (42-50) % MCV (78-100) fL MCH (26-32) pg MCHC (32-36) g/dL RDW (11.5-14.0) % Plt Count (150-450) x10^3/uL MPV (7.5-11.0) fL Gran % (36.0-66.0) % Immature Gran % (Auto) (0.00-0.4) % Nucleat RBC Rel Count (0.00-0.1) % Eos # (Auto) (0-0.5) x10^3/uL Immature Gran # (Auto) (0.00-0.03) x10^3u/L Absolute Lymphs (auto) (1.0-4.6) x10^3/uL Absolute Monos (auto) (0.0-1.3) x10^3/uL Absolute Nucleated RBC (0.00-0.01) x10^3u/L Lymphocytes % (24.0-44.0) % Monocytes % (0.0-12.0) % Eosinophils % (0.00-5.0) % Basophils % (0.0-0.4) % Absolute Granulocytes (1.4-6.9) x10^3/uL Basophils # (0-0.4) x10^3/uL Sodium (137-145) mmol/L Potassium (3.5-5.1) mmol/L Chloride (98-107) mmol/L Carbon Dioxide (22-30) mmol/L Anion Gap (5-15) MEQ/L BUN (9-20) mg/dL Creatinine (0.66-1.25) mg/dL Estimated GFR ML/MIN Glucose (74-106) mg/dL POC Glucometer 135 H 130 H (74 to 106) mg/dL Calcium (8.4-10.2) mg/dL Total Bilirubin (0.2-1.3) mg/dL AST (17-59) U/L ALT (0-50) U/L Alkaline Phosphatase (38-126) U/L Serum Total Protein (6.3-8.2) g/dL Albumin (3.5-5.0) g/dL Prealbumin (17.6-36.0) mg/dL Urine Color Yellow (Yellow) Urine Appearance Clear (Clear) Urine pH 7.5 (4.6-8.0) Ur Specific Sheldon 1.015 (1.005-1.030) Urine Protein 30 (Negative) Urine Glucose (UA) Negative (Negative) mg/dL Urine Ketones Negative (Negative) Urine Blood NHT (Negative) Urine Nitrite Negative (Negative) Urine Bilirubin Negative (Negative) Urine Urobilinogen 1.0 A (0.2) mg/dL Ur Leukocyte Esterase Trace A (Negative) U Hyaline Cast (Auto) NONE SEEN (0-2) /LPF Urine Microscopic RBC 3-5 (0-5) /HPF Urine Microscopic WBC 3-5 (0-5) /HPF Ur Epithelial Cells Rare (None Seen) /HPF Urine Bacteria Rare A (None Seen) /HPF Urine Culture Reflexed YES (NO) 02/23/23 02/23/23 02/24/23 Range/Units 21:46 23:13 04:05 WBC (4.0-10.5) x10^3/uL RBC (4.1-5.6) x10^6/uL Hgb (12.5-18.0) g/dL Hct (42-50) % MCV (78-100) fL MCH (26-32) pg MCHC (32-36) g/dL RDW (11.5-14.0) % Plt Count (150-450) x10^3/uL MPV (7.5-11.0) fL Gran % (36.0-66.0) % Immature Gran % (Auto) (0.00-0.4) % Nucleat RBC Rel Count (0.00-0.1) % Eos # (Auto) (0-0.5) x10^3/uL Immature Gran # (Auto) (0.00-0.03) x10^3u/L Absolute Lymphs (auto) (1.0-4.6) x10^3/uL Absolute Monos (auto) (0.0-1.3) x10^3/uL Absolute Nucleated RBC (0.00-0.01) x10^3u/L Lymphocytes % (24.0-44.0) % Monocytes % (0.0-12.0) % Eosinophils % (0.00-5.0) % Basophils % (0.0-0.4) % Absolute Granulocytes (1.4-6.9) x10^3/uL Basophils # (0-0.4) x10^3/uL Sodium (137-145) mmol/L Potassium (3.5-5.1) mmol/L Chloride (98-107) mmol/L Carbon Dioxide (22-30) mmol/L Anion Gap (5-15) MEQ/L BUN (9-20) mg/dL Creatinine (0.66-1.25) mg/dL Estimated GFR ML/MIN Glucose (74-106) mg/dL POC Glucometer 62 L 68 L 149 H (74 to 106) mg/dL Calcium (8.4-10.2) mg/dL Total Bilirubin (0.2-1.3) mg/dL AST (17-59) U/L ALT (0-50) U/L Alkaline Phosphatase (38-126) U/L Serum Total Protein (6.3-8.2) g/dL Albumin (3.5-5.0) g/dL Prealbumin (17.6-36.0) mg/dL Urine Color (Yellow) Urine Appearance (Clear) Urine pH (4.6-8.0) Ur Specific Sheldon (1.005-1.030) Urine Protein (Negative) Urine Glucose (UA) (Negative) mg/dL Urine Ketones (Negative) Urine Blood (Negative) Urine Nitrite (Negative) Urine Bilirubin (Negative) Urine Urobilinogen (0.2) mg/dL Ur Leukocyte Esterase (Negative) U Hyaline Cast (Auto) (0-2) /LPF Urine Microscopic RBC (0-5) /HPF Urine Microscopic WBC (0-5) /HPF Ur Epithelial Cells (None Seen) /HPF Urine Bacteria (None Seen) /HPF Urine Culture Reflexed (NO) 02/24/23 02/24/23 Range/Units 05:27 05:27 WBC 6.8 (4.0-10.5) x10^3/uL RBC 3.18 L (4.1-5.6) x10^6/uL Hgb 9.6 L (12.5-18.0) g/dL Hct 29.5 L (42-50) % MCV 92.8 (78-100) fL MCH 30.2 (26-32) pg MCHC 32.5 (32-36) g/dL RDW 13.1 (11.5-14.0) % Plt Count 199 (150-450) x10^3/uL MPV 11.8 H (7.5-11.0) fL Gran % (36.0-66.0) % Immature Gran % (Auto) (0.00-0.4) % Nucleat RBC Rel Count (0.00-0.1) % Eos # (Auto) (0-0.5) x10^3/uL Immature Gran # (Auto) (0.00-0.03) x10^3u/L Absolute Lymphs (auto) (1.0-4.6) x10^3/uL Absolute Monos (auto) (0.0-1.3) x10^3/uL Absolute Nucleated RBC (0.00-0.01) x10^3u/L Lymphocytes % (24.0-44.0) % Monocytes % (0.0-12.0) % Eosinophils % (0.00-5.0) % Basophils % (0.0-0.4) % Absolute Granulocytes (1.4-6.9) x10^3/uL Basophils # (0-0.4) x10^3/uL Sodium 134 L (137-145) mmol/L Potassium 4.3 (3.5-5.1) mmol/L Chloride 105 (98-107) mmol/L Carbon Dioxide 26 (22-30) mmol/L Anion Gap 7.2 (5-15) MEQ/L BUN 13 (9-20) mg/dL Creatinine 0.52 L (0.66-1.25) mg/dL Estimated GFR > 60.0 ML/MIN Glucose 183 H (74-106) mg/dL POC Glucometer (74 to 106) mg/dL Calcium 8.5 (8.4-10.2) mg/dL Total Bilirubin (0.2-1.3) mg/dL AST (17-59) U/L ALT (0-50) U/L Alkaline Phosphatase (38-126) U/L Serum Total Protein (6.3-8.2) g/dL Albumin (3.5-5.0) g/dL Prealbumin 16.35 L (17.6-36.0) mg/dL Urine Color (Yellow) Urine Appearance (Clear) Urine pH (4.6-8.0) Ur Specific Sheldon (1.005-1.030) Urine Protein (Negative) Urine Glucose (UA) (Negative) mg/dL Urine Ketones (Negative) Urine Blood (Negative) Urine Nitrite (Negative) Urine Bilirubin (Negative) Urine Urobilinogen (0.2) mg/dL Ur Leukocyte Esterase (Negative) U Hyaline Cast (Auto) (0-2) /LPF Urine Microscopic RBC (0-5) /HPF Urine Microscopic WBC (0-5) /HPF Ur Epithelial Cells (None Seen) /HPF Urine Bacteria (None Seen) /HPF Urine Culture Reflexed (NO) Micro Results-Entire Visit: Accuchecks Date 02/24/23 Date 02/23/23 Date 02/23/23 Date 02/23/23 Date 02/23/23 Time 06:53 Time 21:46 Time 20:03 Time 18:37 Time 17:57 - Radiology Exams Ordered Rad Exams-Entire Visit: Radiology Procedures Category Date Time Status HEAD WITHOUT CONTRAST [CT] Stat Exams 02/23/23 20:33 Completed - Procedures and Test Procedures and Tests throughout Hospitalization: Therapy Orders & Screens 02/23/23 23:40 Respiratory Therapy Assessment DAILY Comment: Diagnosis: hypoglycemia Discharge Exam Wound Assessment: Skin/Wound Assessment Wound/Incision Assessment Start: 02/24/23 00:48 Text: Status: Active Freq: Q6H Protocol: Document 02/24/23 02:00 AB (Rec: 02/24/23 02:57 AB [id number]) Wound/Incision Assessment Left Toe Wound Assessment Shift Assessment Wound Type Scab Drainage Amount None General Appearance Open to air,Clean/Dry Surrounding Tissue Bright Red Primary Dressing ORDER PROCESSOR Comment Top of second toe Right Elbow Wound Assessment Shift Assessment Wound Type scabs Wound Stage Non Pressure Wound Drainage Amount None General Appearance Well Approximated,Open to air, Clean/Dry Surrounding Tissue Dark Red,Purple Primary Dressing ORDER PROCESSOR Comment Multiple scabs on R elbow Left Lower Arm Wound Assessment Shift Assessment Wound Type Skin Tear Wound Stage Non Pressure Wound Dressing Status Changed Drainage Amount Minimal Drainage Description Sanguineous General Appearance Bleeding,Unapproximated Wound Bed Greatest Portion Shiny Wound Bed Lesser Portion Red (Granulation),Shiny Surrounding Tissue Purple Topical Solution/Irrigant Saline Irrigant Primary Dressing Non-Adherent Gauze Pads Secondary Dressing Gauze Roll/Wrap Right Hand Wound Assessment Shift Assessment Wound Type Scab Drainage Amount None Drainage Odor None/Absent General Appearance Open to air,Clean/Dry Surrounding Tissue [place] Primary Dressing BELINDA Comment R knuckle on third finger Right Lower Other Wound Assessment Shift Assessment Wound Type Scab Wound Stage Non Pressure Wound Drainage Amount None General Appearance Open to air,Clean/Dry Surrounding Tissue [place] Primary Dressing BELINDA Left Posterior Hand Wound Assessment Shift Assessment Wound Type scabs Wound Stage Non Pressure Wound Drainage Amount None Drainage Odor None/Absent General Appearance Well Approximated,Open to air, Clean/Dry Surrounding Tissue Purple Primary Dressing BELINDA Wound Photo Photo Taken Yes Final Diagnosis/Problem List - Final Discharge Diagnosis/Problem (1) Hypoglycemia associated with diabetes Current Visit: Yes Status: Resolved Code(s): E11.649 - TYPE 2 DIABETES MELLITUS WITH HYPOGLYCEMIA WITHOUT COMA (2) Altered mental status Current Visit: Yes Status: Chronic Code(s): R41.82 - ALTERED MENTAL STATUS, UNSPECIFIED (3) Anemia Current Visit: Yes Status: Chronic Code(s): D64.9 - ANEMIA, UNSPECIFIED (4) Chronic a-fib Current Visit: Yes Status: Chronic Code(s): I48.20 - CHRONIC ATRIAL FIBRILLATION, UNSPECIFIED (5) Failure to thrive Current Visit: Yes Status: Chronic Code(s): QYO8829 - - Discharge Disposition: DC TO ANY "OTHER" CORRECTION Condition: Stable Prescriptions: Continue Budesonide [Budesonide Dr] 9 mg PO DAILY Albuterol Sulfate [Albuterol Sulfate Hfa] 2 puff IH QID Dronedarone Hydrochloride 400* [Multaq 400 MG] 200 mg PO BID Tamsulosin HCl 0.4 mg [Flomax 0.4 MG] 0.8 mg PO HS Atorvastatin Calcium 40 mg PO QHS Apixaban [Eliquis] 5 mg PO BID Psyllium Packet [Metamucil PACKET] 1 packet PO DAILY Midodrine HCl [Proamatine] 10 mg PO TID Harrah-3 Fatty Acids [Harrah-3] 1 cap PO DAILY Cholecalciferol (Vitamin D3) [Vitamin D3] 1 each PO WEEKLY Alpha Lipoic Acid 300 mg PO BID Magnesium Oxide 400 mg [Mag-Ox 400] 400 mg PO DAILY Ferrous Sulfate 325 mg [Feosol 325 mg] 1 tab PO DAILY Aspirin EC 81 mg [Ecotrin 81 mg] 81 mg PO DAILY Finasteride 5 mg [Proscar 5 MG] 5 mg PO DAILY PANTOPRAZOLE 40 mg Tablet [Protonix 40MG Tablet] 40 mg PO DAILY Insulin Aspart (Niacinamide) [Fiasp 100 Unit/ml Flextouch] 1 unit SQ UD PRN PRN Reason: dm Acetaminophen 325 mg [Tylenol 325 mg] 2 tab PO Q4H PRN PRN Reason: pain/fever Tramadol HCl 50 mg [Ultram 50 mg] 50 mg PO Q6H PRN PRN Reason: Pain Changed Insulin Detemir [Levemir] 10 units SQ DAILY #0 Follow up with: JOSE ALBERTO GRAJEDA [Primary Care Provider] -
[2023-02-24 12:45] VITALS: BP 167/74; PULSE 69; RESP 16; TEMP 97.2; O2SAT 99
[2023-02-24] MEDS ORDERED: NON-FORMULARY ITEM (Atorvastatin Calcium [Atorvastatin Calcium] 20 MG Tablet) PO SCH (22:00)
[2023-02-24] MEDS ORDERED: ZOCOR 20MG PO SCH (22:00)
[2023-02-24] MEDS ORDERED: Flomax 0.4 MG PO SCH (22:00)
== END 2023-02-24 12:41 ==
LOC: ED 17:50 → MED SURG 22:30
PROVIDERS: ADMIT Internal Medicine; ATTEND Internal Medicine
DX: E11.649 Type 2 diabetes mellitus with hypoglycemia without coma (principal); R41.82 Altered mental status, unspecified; R62.7 Adult failure to thrive; I95.89 Other hypotension; D64.9 Anemia, unspecified; I48.20 Chronic atrial fibrillation, unspecified; Z79.899 Other long term (current) drug therapy; Z79.01 Long term (current) use of anticoagulants; Z86.79 Personal history of other diseases of the circulatory system
CPT/HCPCS: 36000; 36415; 51702; 70450; 80048; 80053; 81001; 82947; 84134; 85025; 85027; 87086; 93268; 94640; 94760; 96360; 96374; 99285; G0378; Q3014; A9270-GY

== ENCOUNTER 2023-03-18 10:09 | Observation (INO) | payer MEDICARE ==
[2023-03-18] MEDS ORDERED: ROCEPHIN 1 Gm-D5w 50 ml Bag** 1 G/50 ML IVPB IV STA (10:30)
[2023-03-18] MEDS ORDERED: Dextrose 5%-NS IV Solution 1000 ML 1,000 ML IV ONE (10:34)
[2023-03-18 10:51] LABS: Absolute Neutrophil Ct (ANC) 8.48 x10^3/uL (1.4-6.9); BASOPHIL % 0.8 % (0.0-0.4); Basophil (Absolute #) 0.08 x10^3/uL (0-0.4); Eosinophil % 2.7 % (0.00-5.0); Eosinophil (Absolute #) 0.28 x10^3/uL (0-0.5); Hematocrit 35.6 % (42-50); Hemoglobin 11.4 g/dL (12.5-18.0); IMMATURE GRAN # 0.11 x10^3u/L (0.00-0.03); IMMATURE GRAN % 1.1 % (0.00-0.4); Lymphocyte (Absolute #) 0.74 x10^3/uL (1.0-4.6); Lymphocytes % 7.2 % (24.0-44.0); Mean Cell Volume 95.4 fL (78-100); Mean Corpuscular Hemoglobin 30.6 pg (26-32); Mean Platelet Volume 11.2 fL (7.5-11.0); Monocyte (Absolute #) 0.64 x10^3/uL (0.0-1.3); Monocytes % 6.2 % (0.0-12.0); Platelet Count 216 x10^3/uL (150-450); Red Blood Count 3.73 x10^6/uL (4.1-5.6); Red Cell Distribution Width 13.2 % (11.5-14.0); White Blood Count 10.3 x10^3/uL (4.0-10.5)
--- NOTE | 2023-03-18 10:52 | XRAY ---
Indication: Altered mental status. Comparison: January 31, 2023 Portable chest less inflated with now minimal bibasilar infiltrates versus atelectasis. Stable COPD and tiny left lung calcified granulomas. Heart not enlarged again with CABG. Bony thorax intact again with osteopenia and degenerative changes.
[2023-03-18] MEDS ORDERED: Dextrose 5%-NS IV Solution 1000 ML 1,000 ML IV SCH ×2 (11:00→15:30)
[2023-03-18] MEDS ORDERED: ROCEPHIN 1 Gm-D5w 50 ml Bag** 1 G/50 ML IVPB IV ONE (11:06)
--- NOTE | 2023-03-18 11:06 | XRAY ---
Indication: Cerebrovascular accident. Multiple contiguous axial images obtained through the head without contrast. Comparison: February 23, 2023 Again age-appropriate global atrophy, moderate/advanced periventricular degenerative micro-ischemia bilaterally, and remote lacunar infarct right basal ganglia/left thalamus. No acute intracranial hemorrhage, abnormal extra-axial fluid collection, or mass effect. Fourth ventricle is midline without hydrocephalus. Bony calvarium intact. Stable 1 cm left maxillary sinus polyp/retention cyst. Remaining visualized paranasal sinuses and mastoid air cells are clear. Impression: No change compared to ER CT exam 3 weeks ago. Continued nonacute senile brain with multifocal remote lacunar infarcts and incidental left maxillary sinus polyp/retention cyst.
[2023-03-18 11:12] LABS: ALBUMIN 3.6 g/dL (3.5-5.0); ALKALINE PHOSPHATASE 186 U/L (38-126); ANION GAP 11.3 MEQ/L (5-15); BLOOD UREA NITROGEN 20 mg/dL (9-20); CHLORIDE 98 mmol/L (98-107); Calcium 9.5 mg/dL (8.4-10.2); Carbon Dioxide 31 mmol/L (22-30); Creatinine 1 0.78 mg/dL (0.66-1.25); EST GLOMERULAR FILTRATION RATE 95.9 ML/MIN; ETHYL ALCOHOL < 10 mg/dL (0-10); Glucose 64 mg/dL (74-106); Potassium 3.9 mmol/L (3.5-5.1); SGOT/AST 26 U/L (17-59); SGPT/ALT 29 U/L (0-50); SODIUM 136 mmol/L (137-145); Total Protein 6.5 g/dL (6.3-8.2)
[2023-03-18] MEDS ORDERED: Merrem 1 GM in Sodium Chloride 100ML MINI-BAG PLUS 100 ML IV ONE (11:44)
--- NOTE | 2023-03-18 11:47 | ERPHSYRPT ---
- History of Present Illness Time Seen by Provider: 03/18/23 10:20 Source: patient, family, EMS, senior living records (Urine culture reports) Exam Limitations: clinical condition Patient Subjective Stated Complaint: EMS states "The nurse was not very helpful, she said he had hypertension but his blood pressure was low, they said he had blood sugar of over 200 so they gave him his insulin and we got 126. they said he was talking to them before breakfast but would not eat and now he will not respons well.". assisted RN stated "He was last normal last night." Triage Nursing Assessment: Pt presented alert and oriented X3, skin pwd. Pt loo ks at person speaking his name but will not respond. PT moving his head and arms but is weak. pt has bandage on left arm, unsure what happened. Physician History: Patient is a 68-year-old male who is a resident of an [facility] who according to the family has been undergoing a deterioration in his mental status. They have asked the senior living on several occasions to check his urine for urinary tract infection and apparently this was not done in an expeditious way. He is not eating or speaking today in spite of that he was given his full dose of insulin. And his blood sugar did drop into the 60s I believe. He has a history of urinary tract infections causing mental status alteration. Other chronic health problems include insulin-dependent diabetes mellitus coronary artery disease TIA inflammatory bowel disease Crohn's and a history of chronic atrial fibs. Timing/Duration: day(s) (5-6Days) Severity: severe Allergies/Adverse Reactions: acetaminophen [From Percocet] Adverse Reaction (Verified 02/09/23 20:12) confusion hydromorphone [From Dilaudid] Adverse Reaction (Verified 02/09/23 20:12) confusion morphine Adverse Reaction (Verified 02/09/23 20:12) confusion oxycodone [From Percocet] Adverse Reaction (Verified 02/09/23 20:12) confusion Home Medications: Albuterol Sulfate [Albuterol Sulfate Hfa] 2 puff IH QID 10/24/20 [History] Budesonide [Budesonide Dr] 9 mg PO DAILY 10/24/20 [History] Dronedarone Hydrochloride 400* [Multaq 400 MG] 200 mg PO BID 09/16/21 [History] Atorvastatin Calcium 40 mg PO QHS 01/01/22 [History] Tamsulosin HCl 0.4 mg [Flomax 0.4 MG] 0.8 mg PO HS 01/01/22 [History] Alpha Lipoic Acid 300 mg PO BID 10/12/22 [History] Apixaban [Eliquis] 5 mg PO BID 10/12/22 [History] Cholecalciferol (Vitamin D3) [Vitamin D3] 1 each PO WEEKLY 10/12/22 [History] Midodrine HCl [Proamatine] 10 mg PO TID 10/12/22 [History] Turlock-3 Fatty Acids [Turlock-3] 1 cap PO DAILY 10/12/22 [History] Psyllium Packet [Metamucil PACKET] 1 packet PO DAILY 10/12/22 [History] Aspirin EC 81 mg [Ecotrin 81 mg] 81 mg PO DAILY 12/01/22 [History] Ferrous Sulfate 325 mg [Feosol 325 mg] 1 tab PO DAILY 12/01/22 [History] Magnesium Oxide 400 mg [Mag-Ox 400] 400 mg PO DAILY 12/01/22 [History] Finasteride 5 mg [Proscar 5 MG] 5 mg PO DAILY 12/28/22 [History] PANTOPRAZOLE 40 mg Tablet [Protonix 40MG Tablet] 40 mg PO DAILY 02/09/23 [History] Insulin Aspart (Niacinamide) [Fiasp 100 Unit/ml Flextouch] 1 unit SQ UD PRN 02/10/23 [History] Acetaminophen 325 mg [Tylenol 325 mg] 2 tab PO Q4H PRN 02/23/23 [History] Tramadol HCl 50 mg [Ultram 50 mg] 50 mg PO Q6H PRN 02/23/23 [History] Mirabegron [Myrbetriq] 25 mg PO HS 03/18/23 [History] Hx Tetanus, Diphtheria Vaccination/Date Given: No Hx Influenza Vaccination/Date Given: No Hx Pneumococcal Vaccination/Date Given: No Immunizations Up to Date: No Travel Risk - International Travel Have you traveled outside of the country in past 3 weeks: No - Coronavirus Screening Are you exhibiting any of the following symptoms?: No Close contact with a COVID-19 positive Pt in past 14-21 Days: No - Vaccine Status Have you recieved a Covid-19 vaccination: Yes Counter 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: Pfizer - Vaccination Dates Date of 2cond Vaccination (if applicable): 2019 if Unknown: unknown - Review of Systems All Other Systems: Unable due to condition - Past Medical History Pertinent Past Medical History: Yes Neurological History: Stroke, TIA ENT History: Other Cardiac History: Coronary Artery Disease, Hypertension, Myocardial Infarction ([place]) Respiratory History: No Pertinent History Endocrine Medical History: Diabetes Type II Musculoskeletal History: Arthritis, Fractures GI Medical History: Crohns Disease, GERD History: No Pertinent History Psycho-Social History: No Pertinent History Male Reproductive Disorders: Prostate Problems Other Medical History: ANEMIA, ATAXIA, A-FIB, ATROPHY OF PANCREAS, 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, LUNG NODULES, MALNOURISHED, ORTHOSTATIC HYPOTENSION, SENSORY NEUROPATHY, VASCULAR INSUFFICIENCY OF EXTREMITIY - Past Surgical History Past Surgical History: Yes Neuro Surgical History: No Pertinent History Cardiac: CABG, Cardiac Catheterization, Cardiac Stent, Other Respiratory: No Pertinent History Gastrointestinal: Appendectomy, Other Genitourinary: No Pertinent History Musculoskeletal: Orthopedic Surgery Male Surgical History: No Pertinent History Other Surgical History: 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, intestinal resection, triple bypass - Social History Smoking Status: Former smoker How long have you smoked: years Exposure to second hand smoke: Yes Drug Use: none Patient Lives Alone: No Significant Family History: no pertinent family hx - Nursing Vital Signs Nursing Vital Signs: Initial Vital Signs Temperature 97.2 F 03/18/23 10:11 Pulse Rate 76 03/18/23 10:11 Respiratory Rate 20 03/18/23 10:11 Blood Pressure 104/58 03/18/23 10:11 O2 Sat by Pulse Oximetry 96 03/18/23 10:11 Pain Scale Pain Intensity 0 - Physical Exam General Appearance: moderate distress, lethargy, cachetic, thin Eye Exam: PERRL/EOMI, eyes nml inspection Ears, Nose, Throat Exam: normal ENT inspection, TMs normal, pharynx normal, moist mucous membranes Neck Exam: normal inspection, non-tender, supple, full range of motion Respiratory Exam: normal breath sounds, lungs clear, No respiratory distress Cardiovascular Exam: regular rate/rhythm (Patient has regular rate and rhythm despite reports of chronic atrial fib.), normal heart sounds, normal peripheral pulses Gastrointestinal/Abdomen Exam: soft, normal bowel sounds Male Genitalia Exam: other (Catheter draining his bladder shows a milky purulent material in the tube.) Back Exam: normal inspection Extremity Exam: normal inspection Neurologic Exam: depressed mood/affect, aphasia Skin Exam: normal color, warm, dry SpO2 Interpretation: normal SpO2: 99 O2 Delivery: Room Air - Course Nursing assessment & vital signs reviewed: Yes EKG Interpreted by Me: RATE (72), Sinus Rhythm, Right Bundle Branch Block, Non- specific ST Changes, Other (Prolonged VT interval) - Radiology Exams Chest X-ray Interpretation: Reviewed by me - CT Exams Head CT Interpretation: Other (CT of the head is stable for acute findings) Ordered Tests: Active Orders 24 hr Category Date Time Status Catheter-Apex Willams STAT Care 03/18/23 10:27 Active EKG-ER Only STAT Care 03/18/23 10:27 Active IV Insertion STAT Care 03/18/23 10:27 Active NPO (ED) STAT Care 03/18/23 10:27 Active CHEST 1 VIEW (PORTABLE) Stat Exams 03/18/23 10:27 Completed HEAD WITHOUT CONTRAST [CT] Stat Exams 03/18/23 10:27 Completed CBC W DIFF Stat Lab 03/18/23 10:49 Completed CMP Stat Lab 03/18/23 10:49 Completed CULTURE,URINE Stat Lab 03/18/23 11:37 Received ETHYL ALCOHOL Stat Lab 03/18/23 10:49 Completed POCT GLUCOSE Stat Lab 03/18/23 13:03 Completed PTT Stat Lab 03/18/23 10:49 Completed TROPONIN Q4H Lab 03/18/23 10:49 Completed TROPONIN Q4H Lab 03/18/23 14:30 Ordered TROPONIN Q4H Lab 03/18/23 18:30 Ordered UA W/RFX UR CULTURE Stat Lab 03/18/23 11:27 Completed Urine Triage Profile Stat Lab 03/18/23 11:27 Completed Medication Summary Generic Name Dose Route Start Last Admin Trade Name Freq PRN Reason Stop Dose Admin Dextrose/Sodium Chloride 1,000 mls @ 125 mls/hr 03/18/23 11:00 03/18/23 11:08 Dextrose 5%-Ns Iv Solution 1000 Ml IV 04/17/23 10:59 125 mls/hr .Q8H ELIZABETH Administration Discontinued Medications Generic Name Dose Route Start Last Admin Trade Name Daphne PRN Reason Stop Dose Admin Ceftriaxone Sodium/Dextrose 1 g in 50 mls @ 100 mls/hr 03/18/23 10:30 03/18/23 11:42 Rocephin 1 Gm-D5w 50 Ml Bag IV 03/18/23 10:59 Infused STAT STA Infusion Dextrose/Sodium Chloride Confirm 03/18/23 10:34 Dextrose 5%-Ns Iv Solution 1000 Ml Administered 03/18/23 10:35 Dose 1,000 mls @ ud IV .STK-MED ONE Ceftriaxone Sodium/Dextrose Confirm 03/18/23 11:06 Rocephin 1 Gm-D5w 50 Ml Bag Administered 03/18/23 11:07 Dose 1 g in 50 mls @ ud IV .STK-MED ONE Meropenem 1 gm/ Sodium 100 mls @ 200 mls/hr 03/18/23 11:44 03/18/23 11:59 Chloride IV 03/18/23 12:13 200 mls/hr STAT ONE Administration Sodium Chloride Confirm 03/18/23 11:56 Sodium Chloride 100ml Mini-Bag Plus Administered 03/18/23 11:57 Dose 100 mls @ ud IV .STK-MED ONE Meropenem Confirm 03/18/23 11:56 Meropenem 1 Gm Vial Administered 03/18/23 11:57 Dose 1 gm IV .STK-MED ONE Lab/Rad Data: Laboratory Result Diagrams 03/18/23 10:49 03/18/23 10:49 Laboratory Results 03/18/23 03/18/23 03/18/23 Range/Units 13:03 11:27 11:27 WBC (4.0-10.5) x10^3/uL RBC (4.1-5.6) x10^6/uL Hgb (12.5-18.0) g/dL Hct (42-50) % MCV (78-100) fL MCH (26-32) pg MCHC (32-36) g/dL RDW (11.5-14.0) % Plt Count (150-450) x10^3/uL MPV (7.5-11.0) fL Gran % (36.0-66.0) % Immature Gran % (Auto) (0.00-0.4) % Nucleat RBC Rel Count (0.00-0.1) % Eos # (Auto) (0-0.5) x10^3/uL Immature Gran # (Auto) (0.00-0.03) x10^3u/L Absolute Lymphs (auto) (1.0-4.6) x10^3/uL Absolute Monos (auto) (0.0-1.3) x10^3/uL Absolute Nucleated RBC (0.00-0.01) x10^3u/L Lymphocytes % (24.0-44.0) % Monocytes % (0.0-12.0) % Eosinophils % (0.00-5.0) % Basophils % (0.0-0.4) % Absolute Granulocytes (1.4-6.9) x10^3/uL Basophils # (0-0.4) x10^3/uL APTT (25.1-36.5) SECONDS Sodium (137-145) mmol/L Potassium (3.5-5.1) mmol/L Chloride (98-107) mmol/L Carbon Dioxide (22-30) mmol/L Anion Gap (5-15) MEQ/L BUN (9-20) mg/dL Creatinine (0.66-1.25) mg/dL Estimated GFR ML/MIN Glucose (74-106) mg/dL POC Glucometer 95 (74 to 106) mg/dL Calcium (8.4-10.2) mg/dL Total Bilirubin (0.2-1.3) mg/dL AST (17-59) U/L ALT (0-50) U/L Alkaline Phosphatase (38-126) U/L Troponin I (0.000-0.034) ng/mL Serum Total Protein (6.3-8.2) g/dL Albumin (3.5-5.0) g/dL Urine Color Dark Yellow (Yellow) Urine Appearance Turbid A (Clear) Urine pH 5.5 (4.6-8.0) Ur Specific [place] 1.025 (1.005-1.030) Urine Protein 300 A (Negative) Urine Glucose (UA) Negative (Negative) mg/dL Urine Ketones 15 A (Negative) Urine Blood Moderate A (Negative) Urine Nitrite Positive A (Negative) Urine Bilirubin Small A (Negative) Urine Urobilinogen 1.0 A (0.2) mg/dL Ur Leukocyte Esterase Large A (Negative) U Hyaline Cast (Auto) 3-5 A (0-2) /LPF Urine Microscopic RBC 11-20 A (0-5) /HPF Urine Microscopic WBC >100 A (0-5) /HPF Ur Epithelial Cells Many A (None Seen) /HPF Urine Bacteria Many A (None Seen) /HPF Urine Culture Reflexed ORDERED SEPARATELY (NO) Urine Opiates Level NEGATIVE (NEGATIVE) Ur Methadone NEGATIVE (NEGATIVE) Urine Barbiturates NEGATIVE (NEGATIVE) Ur Phencyclidine (PCP) NEGATIVE (NEGATIVE) Urine Amphetamine NEGATIVE (NEGATIVE) U Benzodiazepine Level NEGATIVE (NEGATIVE) Urine Cocaine NEGATIVE (NEGATIVE) Urine Marijuana (THC) NEGATIVE (NEGATIVE) Ethyl Alcohol (0-10) mg/dL 03/18/23 03/18/23 03/18/23 Range/Units 10:49 10:49 10:49 WBC (4.0-10.5) x10^3/uL RBC (4.1-5.6) x10^6/uL Hgb (12.5-18.0) g/dL Hct (42-50) % MCV (78-100) fL MCH (26-32) pg MCHC (32-36) g/dL RDW (11.5-14.0) % Plt Count (150-450) x10^3/uL MPV (7.5-11.0) fL Gran % (36.0-66.0) % Immature Gran % (Auto) (0.00-0.4) % Nucleat RBC Rel Count (0.00-0.1) % Eos # (Auto) (0-0.5) x10^3/uL Immature Gran # (Auto) (0.00-0.03) x10^3u/L Absolute Lymphs (auto) (1.0-4.6) x10^3/uL Absolute Monos (auto) (0.0-1.3) x10^3/uL Absolute Nucleated RBC (0.00-0.01) x10^3u/L Lymphocytes % (24.0-44.0) % Monocytes % (0.0-12.0) % Eosinophils % (0.00-5.0) % Basophils % (0.0-0.4) % Absolute Granulocytes (1.4-6.9) x10^3/uL Basophils # (0-0.4) x10^3/uL APTT 29.8 (25.1-36.5) SECONDS Sodium 136 L (137-145) mmol/L Potassium 3.9 (3.5-5.1) mmol/L Chloride 98 (98-107) mmol/L Carbon Dioxide 31 H (22-30) mmol/L Anion Gap 11.3 (5-15) MEQ/L BUN 20 (9-20) mg/dL Creatinine 0.78 (0.66-1.25) mg/dL Estimated GFR 95.9 ML/MIN Glucose 64 L (74-106) mg/dL POC Glucometer (74 to 106) mg/dL Calcium 9.5 (8.4-10.2) mg/dL Total Bilirubin 0.70 (0.2-1.3) mg/dL AST 26 (17-59) U/L ALT 29 (0-50) U/L Alkaline Phosphatase 186 H (38-126) U/L Troponin I < 0.012 (0.000-0.034) ng/mL Serum Total Protein 6.5 (6.3-8.2) g/dL Albumin 3.6 (3.5-5.0) g/dL Urine Color (Yellow) Urine Appearance (Clear) Urine pH (4.6-8.0) Ur Specific [place] (1.005-1.030) Urine Protein (Negative) Urine Glucose (UA) (Negative) mg/dL Urine Ketones (Negative) Urine Blood (Negative) Urine Nitrite (Negative) Urine Bilirubin (Negative) Urine Urobilinogen (0.2) mg/dL Ur Leukocyte Esterase (Negative) U Hyaline Cast (Auto) (0-2) /LPF Urine Microscopic RBC (0-5) /HPF Urine Microscopic WBC (0-5) /HPF Ur Epithelial Cells (None Seen) /HPF Urine Bacteria (None Seen) /HPF Urine Culture Reflexed (NO) Urine Opiates Level (NEGATIVE) Ur Methadone (NEGATIVE) Urine Barbiturates (NEGATIVE) Ur Phencyclidine (PCP) (NEGATIVE) Urine Amphetamine (NEGATIVE) U Benzodiazepine Level (NEGATIVE) Urine Cocaine (NEGATIVE) Urine Marijuana (THC) (NEGATIVE) Ethyl Alcohol < 10 (0-10) mg/dL 03/18/23 Range/Units 10:49 WBC 10.3 (4.0-10.5) x10^3/uL RBC 3.73 L (4.1-5.6) x10^6/uL Hgb 11.4 L (12.5-18.0) g/dL Hct 35.6 L (42-50) % MCV 95.4 (78-100) fL MCH 30.6 (26-32) pg MCHC 32.0 (32-36) g/dL RDW 13.2 (11.5-14.0) % Plt Count 216 (150-450) x10^3/uL MPV 11.2 H (7.5-11.0) fL Gran % 82.0 H (36.0-66.0) % Immature Gran % (Auto) 1.1 H (0.00-0.4) % Nucleat RBC Rel Count 0.0 (0.00-0.1) % Eos # (Auto) 0.28 (0-0.5) x10^3/uL Immature Gran # (Auto) 0.11 H (0.00-0.03) x10^3u/L Absolute Lymphs (auto) 0.74 L (1.0-4.6) x10^3/uL Absolute Monos (auto) 0.64 (0.0-1.3) x10^3/uL Absolute Nucleated RBC 0.00 (0.00-0.01) x10^3u/L Lymphocytes % 7.2 L (24.0-44.0) % Monocytes % 6.2 (0.0-12.0) % Eosinophils % 2.7 (0.00-5.0) % Basophils % 0.8 (0.0-0.4) % Absolute Granulocytes 8.48 H (1.4-6.9) x10^3/uL Basophils # 0.08 (0-0.4) x10^3/uL APTT (25.1-36.5) SECONDS Sodium (137-145) mmol/L Potassium (3.5-5.1) mmol/L Chloride (98-107) mmol/L Carbon Dioxide (22-30) mmol/L Anion Gap (5-15) MEQ/L BUN (9-20) mg/dL Creatinine (0.66-1.25) mg/dL Estimated GFR ML/MIN Glucose (74-106) mg/dL POC Glucometer (74 to 106) mg/dL Calcium (8.4-10.2) mg/dL Total Bilirubin (0.2-1.3) mg/dL AST (17-59) U/L ALT (0-50) U/L Alkaline Phosphatase (38-126) U/L Troponin I (0.000-0.034) ng/mL Serum Total Protein (6.3-8.2) g/dL Albumin (3.5-5.0) g/dL Urine Color (Yellow) Urine Appearance (Clear) Urine pH (4.6-8.0) Ur Specific [place] (1.005-1.030) Urine Protein (Negative) Urine Glucose (UA) (Negative) mg/dL Urine Ketones (Negative) Urine Blood (Negative) Urine Nitrite (Negative) Urine Bilirubin (Negative) Urine Urobilinogen (0.2) mg/dL Ur Leukocyte Esterase (Negative) U Hyaline Cast (Auto) (0-2) /LPF Urine Microscopic RBC (0-5) /HPF Urine Microscopic WBC (0-5) /HPF Ur Epithelial Cells (None Seen) /HPF Urine Bacteria (None Seen) /HPF Urine Culture Reflexed (NO) Urine Opiates Level (NEGATIVE) Ur Methadone (NEGATIVE) Urine Barbiturates (NEGATIVE) Ur Phencyclidine (PCP) (NEGATIVE) Urine Amphetamine (NEGATIVE) U Benzodiazepine Level (NEGATIVE) Urine Cocaine (NEGATIVE) Urine Marijuana (THC) (NEGATIVE) Ethyl Alcohol (0-10) mg/dL - Departure Departure Disposition: Observation Clinical Impression: Urinary tract infection, Altered mental status Condition: Serious Critical Care Time: No Referrals: JOSE ALBERTO [id number] [Primary Care Provider] - Follow up/PCP as directed
[2023-03-18] MEDS ORDERED: Merrem IV ONE (11:56)
[2023-03-18] MEDS ORDERED: Sodium Chloride 100ML MINI-BAG PLUS 100 ML IV ONE (11:56)
[2023-03-18 12:01] LABS: ADD URINE CULTURE? ORDERED SEPARATELY (NO); Appearance Turbid (Clear); Bacteria Many /HPF (None Seen); Bilirubin Small (Negative); Blood Moderate (Negative); Epithelial Cells Many /HPF (None Seen); Glucose, Urine Negative (Negative); Ketones 15 (Negative); Leukocyte Esterase Large (Negative); Nitrite Positive (Negative); Ph 5.5 (4.6-8.0); Protein,Urine Dip 300 (Negative); Specific Gravity 1.025 (1.005-1.030); WBC >100 /HPF (0-5)
[2023-03-18 12:08] LABS: Amphetamine,Urine NEGATIVE (NEGATIVE); Barbiturate,Urine NEGATIVE (NEGATIVE); Benzodiazepine,Urine NEGATIVE (NEGATIVE); Cocaine,Urine NEGATIVE (NEGATIVE); Methadone,Urine NEGATIVE (NEGATIVE); Opiate,Urine NEGATIVE (NEGATIVE); PCP,Urine NEGATIVE (NEGATIVE); THC,Urine NEGATIVE (NEGATIVE)
--- NOTE | 2023-03-18 15:12 | PCM.HP ---
History of Present Illness - Chief Complaint Chief Complaint: Urinary tract infection Date: 03/18/23 History of Present Illness: is a 68 year old male with a pmhx of DM, CAD, AR (s/p CABG/stent) , TIA, Crohns, AFIB (eliquis), GERD, and HTN who presents from the [place] with confusion. No family present at time of interview, patient poor historian but from ED documentation it appears patient's mental status has been deteriorating, and he has not been eating drinking. Family reported to ED that they requested several times for urine to be checked. He has been receiving full dose of insulin despite poor appetite. In ED vitals unremarkable. CT of head demonstrating non-acute senile brain with mulitfocal remote lucunar infarct. CXR with bibasilar infiltrates vs atelectasis. EKG NS RBBB. Labs unremarkable with the exception of his urinalysis which shows positive nitrites and leuks suspicious for infection. Patient also had a low blood glucose level on arrival of 64. He was given a dose of Merrem, ceftriaxone, and dextrose. - Review of Systems All Other Systems: Unable due to condition Medications & Allergies Home Medications: Home Medication List Albuterol Sulfate [Albuterol Sulfate Hfa] 2 puff IH QID 10/24/20 [History Confirmed 03/18/23] Budesonide [Budesonide Dr] 9 mg PO DAILY 10/24/20 [History Confirmed 03/18/23] Dronedarone Hydrochloride 400* [Multaq 400 MG] 200 mg PO BID 09/16/21 [History Confirmed 03/18/23] Atorvastatin Calcium 40 mg PO QHS 01/01/22 [History Confirmed 03/18/23] Tamsulosin HCl 0.4 mg [Flomax 0.4 MG] 0.8 mg PO HS 01/01/22 [History Confirmed 03/18/23] Alpha Lipoic Acid 300 mg PO BID 10/12/22 [History Confirmed 03/18/23] Apixaban [Eliquis] 5 mg PO BID 10/12/22 [History Confirmed 03/18/23] Cholecalciferol (Vitamin D3) [Vitamin D3] 1 each PO WEEKLY 10/12/22 [History Confirmed 03/18/23] Midodrine HCl [Proamatine] 10 mg PO TID 10/12/22 [History Confirmed 03/18/23] [place]-3 Fatty Acids [[place]-3] 1 cap PO DAILY 10/12/22 [History Confirmed 03/18/23] Psyllium Packet [Metamucil PACKET] 1 packet PO DAILY 10/12/22 [History Confirmed 03/18/23] Aspirin EC 81 mg [Ecotrin 81 mg] 81 mg PO DAILY 12/01/22 [History Confirm ed 03/18/23] Ferrous Sulfate 325 mg [Feosol 325 mg] 1 tab PO DAILY 12/01/22 [History Confirmed 03/18/23] Magnesium Oxide 400 mg [Mag-Ox 400] 400 mg PO DAILY 12/01/22 [History Confirmed 03/18/23] Finasteride 5 mg [Proscar 5 MG] 5 mg PO DAILY 12/28/22 [History Confirmed 03/18/23] PANTOPRAZOLE 40 mg Tablet [Protonix 40MG Tablet] 40 mg PO DAILY 02/09/23 [History Confirmed 03/18/23] Insulin Aspart (Niacinamide) [Fiasp 100 Unit/ml Flextouch] 1 unit SQ UD PRN 02/10/23 [History Confirmed 03/18/23] Acetaminophen 325 mg [Tylenol 325 mg] 2 tab PO Q4H PRN 02/23/23 [History Confirmed 03/18/23] Tramadol HCl 50 mg [Ultram 50 mg] 50 mg PO Q6H PRN 02/23/23 [History Confirmed 03/18/23] Insulin Detemir [Levemir] 10 units SQ DAILY #0 02/24/23 [Rx Confirmed 03/18/23] Mirabegron [Myrbetriq] 25 mg PO HS 03/18/23 [History Confirmed 03/18/23] Allergies/Adverse Reactions: Allergies Allergy/AdvReac Type Severity Reaction Status Date / Time acetaminophen [From Percocet] AdvReac Verified 02/09/23 20:12 hydromorphone [From Dilaudid] AdvReac Verified 02/09/23 20:12 morphine AdvReac Verified 02/09/23 20:12 oxycodone [From Percocet] AdvReac Verified 02/09/23 20:12 - Past Medical History Past Medical History: Yes Neurological History: Stroke, TIA ENT History: Other Cardiac History: Coronary Artery Disease, Hypertension, Myocardial Infarction (AR) Respiratory History: No Pertinent History Endocrine Medical History: Diabetes Type II Musculoskelatal History: Arthritis, Fractures GI Medical History: Crohns Disease, GERD History: No Pertinent History Pyscho-Social History: No Pertinent History Male Reproductive Disorders: Prostate Problems Comment: ANEMIA, ATAXIA, A-FIB, ATROPHY OF PANCREAS, 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, LUNG NODULES, MALNOURISHED, ORTHOSTATIC HYPOTENSION, SENSORY NEUROPATHY, VASCULAR INSUFFICIENCY OF EXTREMITIY - Past Surgical History Past Surgical History: Yes Neuro Surgical History: No Pertinent History Cardiac History: CABG, Cardiac Catheterization, Cardiac Stent, Other Respiratory Surgery: No Pertinent History GI Surgical History: Appendectomy, Other Genitourinary Surgical Hx: No Pertinent History Musculskeletal Surgical Hx: Orthopedic Surgery Male Surgical History: No Pertinent History Other Surgical History: 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, intestinal resection, triple bypass - Social History Smoking Status: Former smoker How long have you smoked: years Exposure to second hand smoke: Yes Alcohol: None Drug Use: none Significant Family History: no pertinent family hx - Physical Exam Vital Signs: Vital Signs - 24 hr Temp Pulse Resp BP BP Pulse Ox 03/18/23 14:30 108/64 03/18/23 14:20 99 03/18/23 14:15 71 14 116/62 03/18/23 14:00 74 17 122/71 03/18/23 13:45 74 20 116/85 03/18/23 13:30 77 26 H 90/60 03/18/23 13:15 76 17 114/78 03/18/23 13:00 76 16 113/64 03/18/23 12:45 76 11 L 121/65 03/18/23 12:35 76 14 115/61 03/18/23 12:30 74 13 120/62 03/18/23 12:15 73 20 119/60 03/18/23 12:00 74 19 111/60 96 03/18/23 11:45 73 15 108/56 94 L 03/18/23 11:30 71 17 123/68 97 03/18/23 11:15 71 14 126/68 99 03/18/23 10:11 97.2 F 76 20 104/58 96 General Appearance: no apparent distress Neurologic Exam: disoriented, confusion Eye Exam: PERRL/EOMI Ears, Nose, Throat Exam: normal ENT inspection Neck Exam: normal inspection Respiratory Exam: crackles/rales Cardiovascular Exam: regular rate/rhythm, normal heart sounds Gastrointestinal/Abdomen Exam: soft, normal bowel sounds, other Back Exam: normal inspection Extremity Exam: normal inspection Skin Exam: pale Results - Labs Lab/Micro Results: Lab Results-Last 24 Hours 03/18/23 03/18/23 03/18/23 Range/Units 10:49 10:49 10:49 WBC 10.3 (4.0-10.5) x10^3/uL RBC 3.73 L (4.1-5.6) x10^6/uL Hgb 11.4 L (12.5-18.0) g/dL Hct 35.6 L (42-50) % MCV 95.4 (78-100) fL MCH 30.6 (26-32) pg MCHC 32.0 (32-36) g/dL RDW 13.2 (11.5-14.0) % Plt Count 216 (150-450) x10^3/uL MPV 11.2 H (7.5-11.0) fL Gran % 82.0 H (36.0-66.0) % Immature Gran % (Auto) 1.1 H (0.00-0.4) % Nucleat RBC Rel Count 0.0 (0.00-0.1) % Eos # (Auto) 0.28 (0-0.5) x10^3/uL Immature Gran # (Auto) 0.11 H (0.00-0.03) x10^3u/L Absolute Lymphs (auto) 0.74 L (1.0-4.6) x10^3/uL Absolute Monos (auto) 0.64 (0.0-1.3) x10^3/uL Absolute Nucleated RBC 0.00 (0.00-0.01) x10^3u/L Lymphocytes % 7.2 L (24.0-44.0) % Monocytes % 6.2 (0.0-12.0) % Eosinophils % 2.7 (0.00-5.0) % Basophils % 0.8 (0.0-0.4) % Absolute Granulocytes 8.48 H (1.4-6.9) x10^3/uL Basophils # 0.08 (0-0.4) x10^3/uL APTT 29.8 (25.1-36.5) SECONDS Sodium 136 L (137-145) mmol/L Potassium 3.9 (3.5-5.1) mmol/L Chloride 98 (98-107) mmol/L Carbon Dioxide 31 H (22-30) mmol/L Anion Gap 11.3 (5-15) MEQ/L BUN 20 (9-20) mg/dL Creatinine 0.78 (0.66-1.25) mg/dL Estimated GFR 95.9 ML/MIN Glucose 64 L (74-106) mg/dL POC Glucometer (74 to 106) mg/dL Calcium 9.5 (8.4-10.2) mg/dL Total Bilirubin 0.70 (0.2-1.3) mg/dL AST 26 (17-59) U/L ALT 29 (0-50) U/L Alkaline Phosphatase 186 H (38-126) U/L Troponin I (0.000-0.034) ng/mL Serum Total Protein 6.5 (6.3-8.2) g/dL Albumin 3.6 (3.5-5.0) g/dL Urine Color (Yellow) Urine Appearance (Clear) Urine pH (4.6-8.0) Ur Specific [place] (1.005-1.030) Urine Protein (Negative) Urine Glucose (UA) (Negative) mg/dL Urine Ketones (Negative) Urine Blood (Negative) Urine Nitrite (Negative) Urine Bilirubin (Negative) Urine Urobilinogen (0.2) mg/dL Ur Leukocyte Esterase (Negative) U Hyaline Cast (Auto) (0-2) /LPF Urine Microscopic RBC (0-5) /HPF Urine Microscopic WBC (0-5) /HPF Ur Epithelial Cells (None Seen) /HPF Urine Bacteria (None Seen) /HPF Urine Culture Reflexed (NO) Urine Opiates Level (NEGATIVE) Ur Methadone (NEGATIVE) Urine Barbiturates (NEGATIVE) Ur Phencyclidine (PCP) (NEGATIVE) Urine Amphetamine (NEGATIVE) U Benzodiazepine Level (NEGATIVE) Urine Cocaine (NEGATIVE) Urine Marijuana (THC) (NEGATIVE) Ethyl Alcohol < 10 (0-10) mg/dL 03/18/23 03/18/23 03/18/23 Range/Units 10:49 11:27 11:27 WBC (4.0-10.5) x10^3/uL RBC (4.1-5.6) x10^6/uL Hgb (12.5-18.0) g/dL Hct (42-50) % MCV (78-100) fL MCH (26-32) pg MCHC (32-36) g/dL RDW (11.5-14.0) % Plt Count (150-450) x10^3/uL MPV (7.5-11.0) fL Gran % (36.0-66.0) % Immature Gran % (Auto) (0.00-0.4) % Nucleat RBC Rel Count (0.00-0.1) % Eos # (Auto) (0-0.5) x10^3/uL Immature Gran # (Auto) (0.00-0.03) x10^3u/L Absolute Lymphs (auto) (1.0-4.6) x10^3/uL Absolute Monos (auto) (0.0-1.3) x10^3/uL Absolute Nucleated RBC (0.00-0.01) x10^3u/L Lymphocytes % (24.0-44.0) % Monocytes % (0.0-12.0) % Eosinophils % (0.00-5.0) % Basophils % (0.0-0.4) % Absolute Granulocytes (1.4-6.9) x10^3/uL Basophils # (0-0.4) x10^3/uL APTT (25.1-36.5) SECONDS Sodium (137-145) mmol/L Potassium (3.5-5.1) mmol/L Chloride (98-107) mmol/L Carbon Dioxide (22-30) mmol/L Anion Gap (5-15) MEQ/L BUN (9-20) mg/dL Creatinine (0.66-1.25) mg/dL Estimated GFR ML/MIN Glucose (74-106) mg/dL POC Glucometer (74 to 106) mg/dL Calcium (8.4-10.2) mg/dL Total Bilirubin (0.2-1.3) mg/dL AST (17-59) U/L ALT (0-50) U/L Alkaline Phosphatase (38-126) U/L Troponin I < 0.012 (0.000-0.034) ng/mL Serum Total Protein (6.3-8.2) g/dL Albumin (3.5-5.0) g/dL Urine Color Dark Yellow (Yellow) Urine Appearance Turbid A (Clear) Urine pH 5.5 (4.6-8.0) Ur Specific [place] 1.025 (1.005-1.030) Urine Protein 300 A (Negative) Urine Glucose (UA) Negative (Negative) mg/dL Urine Ketones 15 A (Negative) Urine Blood Moderate A (Negative) Urine Nitrite Positive A (Negative) Urine Bilirubin Small A (Negative) Urine Urobilinogen 1.0 A (0.2) mg/dL Ur Leukocyte Esterase Large A (Negative) U Hyaline Cast (Auto) 3-5 A (0-2) /LPF Urine Microscopic RBC 11-20 A (0-5) /HPF Urine Microscopic WBC >100 A (0-5) /HPF Ur Epithelial Cells Many A (None Seen) /HPF Urine Bacteria Many A (None Seen) /HPF Urine Culture Reflexed ORDERED SEPARATELY (NO) Urine Opiates Level NEGATIVE (NEGATIVE) Ur Methadone NEGATIVE (NEGATIVE) Urine Barbiturates NEGATIVE (NEGATIVE) Ur Phencyclidine (PCP) NEGATIVE (NEGATIVE) Urine Amphetamine NEGATIVE (NEGATIVE) U Benzodiazepine Level NEGATIVE (NEGATIVE) Urine Cocaine NEGATIVE (NEGATIVE) Urine Marijuana (THC) NEGATIVE (NEGATIVE) Ethyl Alcohol (0-10) mg/dL 03/18/23 03/18/23 03/18/23 Range/Units 13:03 14:25 14:55 WBC (4.0-10.5) x10^3/uL RBC (4.1-5.6) x10^6/uL Hgb (12.5-18.0) g/dL Hct (42-50) % MCV (78-100) fL MCH (26-32) pg MCHC (32-36) g/dL RDW (11.5-14.0) % Plt Count (150-450) x10^3/uL MPV (7.5-11.0) fL Gran % (36.0-66.0) % Immature Gran % (Auto) (0.00-0.4) % Nucleat RBC Rel Count (0.00-0.1) % Eos # (Auto) (0-0.5) x10^3/uL Immature Gran # (Auto) (0.00-0.03) x10^3u/L Absolute Lymphs (auto) (1.0-4.6) x10^3/uL Absolute Monos (auto) (0.0-1.3) x10^3/uL Absolute Nucleated RBC (0.00-0.01) x10^3u/L Lymphocytes % (24.0-44.0) % Monocytes % (0.0-12.0) % Eosinophils % (0.00-5.0) % Basophils % (0.0-0.4) % Absolute Granulocytes (1.4-6.9) x10^3/uL Basophils # (0-0.4) x10^3/uL APTT (25.1-36.5) SECONDS Sodium (137-145) mmol/L Potassium (3.5-5.1) mmol/L Chloride (98-107) mmol/L Carbon Dioxide (22-30) mmol/L Anion Gap (5-15) MEQ/L BUN (9-20) mg/dL Creatinine (0.66-1.25) mg/dL Estimated GFR ML/MIN Glucose (74-106) mg/dL POC Glucometer 95 92 (74 to 106) mg/dL Calcium (8.4-10.2) mg/dL Total Bilirubin (0.2-1.3) mg/dL AST (17-59) U/L ALT (0-50) U/L Alkaline Phosphatase (38-126) U/L Troponin I < 0.012 (0.000-0.034) ng/mL Serum Total Protein (6.3-8.2) g/dL Albumin (3.5-5.0) g/dL Urine Color (Yellow) Urine Appearance (Clear) Urine pH (4.6-8.0) Ur Specific [place] (1.005-1.030) Urine Protein (Negative) Urine Glucose (UA) (Negative) mg/dL Urine Ketones (Negative) Urine Blood (Negative) Urine Nitrite (Negative) Urine Bilirubin (Negative) Urine Urobilinogen (0.2) mg/dL Ur Leukocyte Esterase (Negative) U Hyaline Cast (Auto) (0-2) /LPF Urine Microscopic RBC (0-5) /HPF Urine Microscopic WBC (0-5) /HPF Ur Epithelial Cells (None Seen) /HPF Urine Bacteria (None Seen) /HPF Urine Culture Reflexed (NO) Urine Opiates Level (NEGATIVE) Ur Methadone (NEGATIVE) Urine Barbiturates (NEGATIVE) Ur Phencyclidine (PCP) (NEGATIVE) Urine Amphetamine (NEGATIVE) U Benzodiazepine Level (NEGATIVE) Urine Cocaine (NEGATIVE) Urine Marijuana (THC) (NEGATIVE) Ethyl Alcohol (0-10) mg/dL Accuchecks Date 03/18/23 Time 15:01 - Radiology Impressions Radiology Exams & Impressions: Radiology Procedures Category Date Time Status CHEST 1 VIEW (PORTABLE) Stat Exams 03/18/23 10:27 Completed HEAD WITHOUT CONTRAST [CT] Stat Exams 03/18/23 10:27 Completed Assessment/Plan (1) UTI (urinary tract infection) Current Visit: Yes Status: Acute Assessment & Plan: -UA suspicious of UTI, will treat empirically with Ceftriaxone, follow culture Code(s): N39.0 - URINARY TRACT INFECTION, SITE NOT SPECIFIED (2) Altered mental status Current Visit: Yes Status: Chronic Assessment & Plan: -multifocal cause, UTI/hypoglycemia, will treat underlying cause, CT negative for acute etiology, will continue to monitor, consider MRI if worsening Code(s): R41.82 - ALTERED MENTAL STATUS, UNSPECIFIED (3) Infiltrate noted on imaging study Current Visit: Yes Status: Acute Assessment & Plan: -infiltrate vs atelectasis, on ceftriaxone for UTI, will add azithromycin -crackles noted on auscultation -on RA, supplemental oxygen as needed to maintain spo2>92% -RT consult Code(s): R93.89 - ABNORMAL FINDINGS ON DX IMAGING OF OTH BODY STRUCTURES (4) History of stroke Current Visit: Yes Status: Acute Assessment & Plan: -noted, continue home meds Code(s): Z86.73 - PRSNL HX OF TIA (TIA), AND CEREB INFRC W/O RESID DEFICITS (5) CAD (coronary artery disease) Current Visit: No Status: Chronic Qualifiers: Coronary Disease-Associated Artery/Lesion type: [place] artery [place] vs. transplanted heart: [place] heart Associated angina: without angina Qualified Code(s): I25.10 - Atherosclerotic heart disease of [place] coronary artery without angina pectoris Assessment & Plan: -continue home meds Code(s): I25.10 - ATHSCL HEART DISEASE OF [place] CORONARY ARTERY W/O ANG PCTRS (6) Chronic a-fib Current Visit: No Status: Chronic Assessment & Plan: -continue eliquis -EKG with NS Code(s): I48.20 - CHRONIC ATRIAL FIBRILLATION, UNSPECIFIED (7) Failure to thrive Current Visit: No Status: Chronic Assessment & Plan: -Nutrition consult, patient refused peg placement on previous admission, will discuss again with family Code(s): MCS6421 - (8) Type 2 diabetes mellitus Current Visit: No Status: Chronic Qualifiers: Diabetes mellitus adjunct faculty for medical terminology insulin use: with adjunct faculty for medical terminology use Diabetes mellitus complication status: with hyperglycemia Qualified Code(s): E11.65 - Type 2 diabetes mellitus with hyperglycemia; 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
[2023-03-18] MEDS ORDERED: DUONEB 0.5-3 MG/3 ml Neb IH PRN (15:22)
[2023-03-18] MEDS ORDERED: TYLENOL 325 MG PO PRN (15:22)
[2023-03-18] MEDS ORDERED: Zofran 4 MG/2 ML VIAL IV PRN (15:22)
[2023-03-18] MEDS ORDERED: ULTRAM 50 MG PO PRN (16:15)
[2023-03-18] MEDS: Sodium Chloride 0.9% 1000 ML 1,000 ML IV SCH (16:17)
[2023-03-18] MEDS: Zithromax 500 MG/ 250 ML NaCl Premix 500 MG/250 ML IVPB IV SCH (16:18)
[2023-03-18] MEDS ORDERED: MEDICATION INTERVENTION MC SCH ×2 (17:00)
[2023-03-18] MEDS: PROAMATINE PO SCH (18:04)
[2023-03-18] MEDS: VENTOLIN COMMON CANISTER IH SCH (19:06)
[2023-03-18] MEDS ORDERED: D50W 50 ml Abboject IV ONE (20:08)
[2023-03-18] MEDS ORDERED: D50W 50 ml Abboject IV PRN (20:14)
[2023-03-18] MEDS ORDERED: Dextrose 5%/Water IV Soln. 1000 ML 1,000 ML IV ONE (20:21)
[2023-03-18] MEDS: Dextrose 5%-NS IV Solution 1000 ML 1,000 ML IV SCH (20:22)
[2023-03-18] MEDS: ELIQUIS 2.5 MG TABLET PO SCH (20:48)
[2023-03-18] MEDS: Flomax 0.4 MG PO SCH (20:48)
[2023-03-18] MEDS: MYRBETRIQ PO SCH (20:49)
[2023-03-18] MEDS: Zocor 10MG PO SCH (20:49)
[2023-03-18] MEDS ORDERED: Multaq 400 MG PO SCH (22:00)
[2023-03-18] MEDS ORDERED: ALPHA LIPOIC ACID 300 MG PO SCH (22:00)
[2023-03-19] MEDS: Sodium Chloride 0.9% 1000 ML 1,000 ML IV SCH (03:39)
--- NOTE | 2023-03-19 05:15 | PCM.NOTE ---
Date and Time: 03/19/23 0514 Subjective Assessment: HPI: 03/18 is a 68 year old male with a pmhx of DM, CAD, ME (s/p CABG/stent) , TIA, Crohns, AFIB (eliquis), GERD, and HTN who presents from the NH with confusion. No family present at time of interview, patient poor historian but from ED documentation it appears patient's mental status has been deteriorating, and he has not been eating drinking. Family reported to ED that they requested several times for urine to be checked. He has been receiving full dose of insulin despite poor appetite. In ED vitals unremarkable. CT of head demonstrating non-acute senile brain with mulitfocal remote lucunar infarct. CXR with bibasilar infiltrates vs atelectasis. EKG NS RBBB. Labs unremarkable with the exception of his urinalysis which shows positive nitrites and leuks suspicious for infection. Patient also had a low blood glucose level on arrival of 64. He was given a dose of Merrem, ceftriaxone, and dextrose. 03/19: Met with patient bedside. Patient more alert, orientated to self/place/president, unsure of year. RN reported that patient was complaining of CP this morning. EKG did not show acute ischemic changes. Trops are uptrending, patient refusing additional labs. Cardiology has been consulted Patient currently at NPO status due to risk of aspiration. Spoke with Janice Phillip regarding swallow status. Patient did have MBS 35 days ago as IP with recs for NPO and w/alternative feedings. Discussed with patient as well as dual POA David Hall/Grace Kaplan (witness Shyla Moe RN) concerns aspiration with a regular diet leading to more severe issues such as pneumonia, chronic lung scaring, and potentially . Options for alternative nutrition were provided including TPN, NG, and PEG. Patient as well as family states patient consumes normal diet at his nursing facility which has been confirmed and they would like patient to have diet. Additionally, they have decline any alternative methods of nutrition and they do not wish to change code status to DNR at this time. - Review of Systems All Other Systems: Unable due to condition Objective Exam General Appearance: no apparent distress Neurologic Exam: alert, manager software development II-XII nml as tested, disoriented, confusion, agita tion Skin Exam: normal color Eye Exam: PERRL Ears, Nose, Throat Exam: normal ENT inspection Neck Exam: normal inspection Respiratory Exam: crackles/rales Cardiovascular Exam: regular rate/rhythm, normal heart sounds Gastrointestinal/Abdomen Exam: soft, normal bowel sounds Extremity Exam: normal inspection Back Exam: normal inspection Male Genitalia Exam: deferred Rectal Exam: deferred OBJECTIVE DATA Vital Signs: Vital Signs - 24 hr Temp Pulse Resp BP BP Pulse Ox 03/19/23 03:00 97.1 F 73 16 112/50 93 L 03/18/23 23:00 97.7 F 70 16 119/51 92 L 03/18/23 18:56 97.3 F 74 16 133/60 95 03/18/23 15:25 97.3 F 75 18 121/58 94 L 03/18/23 15:11 97.3 F 75 18 121/58 94 L 03/18/23 14:30 108/64 03/18/23 14:20 99 03/18/23 14:15 71 14 116/62 03/18/23 14:00 74 17 122/71 03/18/23 13:45 74 20 116/85 03/18/23 13:30 77 26 H 90/60 03/18/23 13:15 76 17 114/78 03/18/23 13:00 76 16 113/64 03/18/23 12:45 76 11 L 121/65 03/18/23 12:35 76 14 115/61 03/18/23 12:30 74 13 120/62 03/18/23 12:15 73 20 119/60 03/18/23 12:00 74 19 111/60 96 03/18/23 11:45 73 15 108/56 94 L 03/18/23 11:30 71 17 123/68 97 03/18/23 11:15 71 14 126/68 99 03/18/23 10:11 97.2 F 76 20 104/58 96 Pain Assessment - Last Documented Pain Intensity 0 Intake and Output: Intake & Output 03/16/23 03/17/23 03/18/23 03/19/23 11:59 11:59 11:59 11:59 Intake Total 0 Output Total 50 Balance -50 Weight 49 kg 50.4 kg Lab Results: Lab Results-Last 24 Hours 03/18/23 03/18/23 03/18/23 Range/Units 10:49 10:49 10:49 WBC 10.3 (4.0-10.5) x10^3/uL RBC 3.73 L (4.1-5.6) x10^6/uL Hgb 11.4 L (12.5-18.0) g/dL Hct 35.6 L (42-50) % MCV 95.4 (78-100) fL MCH 30.6 (26-32) pg MCHC 32.0 (32-36) g/dL RDW 13.2 (11.5-14.0) % Plt Count 216 (150-450) x10^3/uL MPV 11.2 H (7.5-11.0) fL Gran % 82.0 H (36.0-66.0) % Immature Gran % (Auto) 1.1 H (0.00-0.4) % Nucleat RBC Rel Count 0.0 (0.00-0.1) % Eos # (Auto) 0.28 (0-0.5) x10^3/uL Immature Gran # (Auto) 0.11 H (0.00-0.03) x10^3u/L Absolute Lymphs (auto) 0.74 L (1.0-4.6) x10^3/uL Absolute Monos (auto) 0.64 (0.0-1.3) x10^3/uL Absolute Nucleated RBC 0.00 (0.00-0.01) x10^3u/L Lymphocytes % 7.2 L (24.0-44.0) % Monocytes % 6.2 (0.0-12.0) % Eosinophils % 2.7 (0.00-5.0) % Basophils % 0.8 (0.0-0.4) % Absolute Granulocytes 8.48 H (1.4-6.9) x10^3/uL Basophils # 0.08 (0-0.4) x10^3/uL APTT 29.8 (25.1-36.5) SECONDS Sodium 136 L (137-145) mmol/L Potassium 3.9 (3.5-5.1) mmol/L Chloride 98 (98-107) mmol/L Carbon Dioxide 31 H (22-30) mmol/L Anion Gap 11.3 (5-15) MEQ/L BUN 20 (9-20) mg/dL Creatinine 0.78 (0.66-1.25) mg/dL Estimated GFR 95.9 ML/MIN Glucose 64 L (74-106) mg/dL POC Glucometer (74 to 106) mg/dL Calcium 9.5 (8.4-10.2) mg/dL Total Bilirubin 0.70 (0.2-1.3) mg/dL AST 26 (17-59) U/L ALT 29 (0-50) U/L Alkaline Phosphatase 186 H (38-126) U/L Troponin I (0.000-0.034) ng/mL Serum Total Protein 6.5 (6.3-8.2) g/dL Albumin 3.6 (3.5-5.0) g/dL Urine Color (Yellow) Urine Appearance (Clear) Urine pH (4.6-8.0) Ur Specific [place] (1.005-1.030) Urine Protein (Negative) Urine Glucose (UA) (Negative) mg/dL Urine Ketones (Negative) Urine Blood (Negative) Urine Nitrite (Negative) Urine Bilirubin (Negative) Urine Urobilinogen (0.2) mg/dL Ur Leukocyte Esterase (Negative) U Hyaline Cast (Auto) (0-2) /LPF Urine Microscopic RBC (0-5) /HPF Urine Microscopic WBC (0-5) /HPF Ur Epithelial Cells (None Seen) /HPF Urine Bacteria (None Seen) /HPF Urine Culture Reflexed (NO) Urine Opiates Level (NEGATIVE) Ur Methadone (NEGATIVE) Urine Barbiturates (NEGATIVE) Ur Phencyclidine (PCP) (NEGATIVE) Urine Amphetamine (NEGATIVE) U Benzodiazepine Level (NEGATIVE) Urine Cocaine (NEGATIVE) Urine Marijuana (THC) (NEGATIVE) Ethyl Alcohol < 10 (0-10) mg/dL 03/18/23 03/18/23 03/18/23 Range/Units 10:49 11:27 11:27 WBC (4.0-10.5) x10^3/uL RBC (4.1-5.6) x10^6/uL Hgb (12.5-18.0) g/dL Hct (42-50) % MCV (78-100) fL MCH (26-32) pg MCHC (32-36) g/dL RDW (11.5-14.0) % Plt Count (150-450) x10^3/uL MPV (7.5-11.0) fL Gran % (36.0-66.0) % Immature Gran % (Auto) (0.00-0.4) % Nucleat RBC Rel Count (0.00-0.1) % Eos # (Auto) (0-0.5) x10^3/uL Immature Gran # (Auto) (0.00-0.03) x10^3u/L Absolute Lymphs (auto) (1.0-4.6) x10^3/uL Absolute Monos (auto) (0.0-1.3) x10^3/uL Absolute Nucleated RBC (0.00-0.01) x10^3u/L Lymphocytes % (24.0-44.0) % Monocytes % (0.0-12.0) % Eosinophils % (0.00-5.0) % Basophils % (0.0-0.4) % Absolute Granulocytes (1.4-6.9) x10^3/uL Basophils # (0-0.4) x10^3/uL APTT (25.1-36.5) SECONDS Sodium (137-145) mmol/L Potassium (3.5-5.1) mmol/L Chloride (98-107) mmol/L Carbon Dioxide (22-30) mmol/L Anion Gap (5-15) MEQ/L BUN (9-20) mg/dL Creatinine (0.66-1.25) mg/dL Estimated GFR ML/MIN Glucose (74-106) mg/dL POC Glucometer (74 to 106) mg/dL Calcium (8.4-10.2) mg/dL Total Bilirubin (0.2-1.3) mg/dL AST (17-59) U/L ALT (0-50) U/L Alkaline Phosphatase (38-126) U/L Troponin I < 0.012 (0.000-0.034) ng/mL Serum Total Protein (6.3-8.2) g/dL Albumin (3.5-5.0) g/dL Urine Color Dark Yellow (Yellow) Urine Appearance Turbid A (Clear) Urine pH 5.5 (4.6-8.0) Ur Specific [place] 1.025 (1.005-1.030) Urine Protein 300 A (Negative) Urine Glucose (UA) Negative (Negative) mg/dL Urine Ketones 15 A (Negative) Urine Blood Moderate A (Negative) Urine Nitrite Positive A (Negative) Urine Bilirubin Small A (Negative) Urine Urobilinogen 1.0 A (0.2) mg/dL Ur Leukocyte Esterase Large A (Negative) U Hyaline Cast (Auto) 3-5 A (0-2) /LPF Urine Microscopic RBC 11-20 A (0-5) /HPF Urine Microscopic WBC >100 A (0-5) /HPF Ur Epithelial Cells Many A (None Seen) /HPF Urine Bacteria Many A (None Seen) /HPF Urine Culture Reflexed ORDERED SEPARATELY (NO) Urine Opiates Level NEGATIVE (NEGATIVE) Ur Methadone NEGATIVE (NEGATIVE) Urine Barbiturates NEGATIVE (NEGATIVE) Ur Phencyclidine (PCP) NEGATIVE (NEGATIVE) Urine Amphetamine NEGATIVE (NEGATIVE) U Benzodiazepine Level NEGATIVE (NEGATIVE) Urine Cocaine NEGATIVE (NEGATIVE) Urine Marijuana (THC) NEGATIVE (NEGATIVE) Ethyl Alcohol (0-10) mg/dL 03/18/23 03/18/23 03/18/23 Range/Units 13:03 14:25 14:55 WBC (4.0-10.5) x10^3/uL RBC (4.1-5.6) x10^6/uL Hgb (12.5-18.0) g/dL Hct (42-50) % MCV (78-100) fL MCH (26-32) pg MCHC (32-36) g/dL RDW (11.5-14.0) % Plt Count (150-450) x10^3/uL MPV (7.5-11.0) fL Gran % (36.0-66.0) % Immature Gran % (Auto) (0.00-0.4) % Nucleat RBC Rel Count (0.00-0.1) % Eos # (Auto) (0-0.5) x10^3/uL Immature Gran # (Auto) (0.00-0.03) x10^3u/L Absolute Lymphs (auto) (1.0-4.6) x10^3/uL Absolute Monos (auto) (0.0-1.3) x10^3/uL Absolute Nucleated RBC (0.00-0.01) x10^3u/L Lymphocytes % (24.0-44.0) % Monocytes % (0.0-12.0) % Eosinophils % (0.00-5.0) % Basophils % (0.0-0.4) % Absolute Granulocytes (1.4-6.9) x10^3/uL Basophils # (0-0.4) x10^3/uL APTT (25.1-36.5) SECONDS Sodium (137-145) mmol/L Potassium (3.5-5.1) mmol/L Chloride (98-107) mmol/L Carbon Dioxide (22-30) mmol/L Anion Gap (5-15) MEQ/L BUN (9-20) mg/dL Creatinine (0.66-1.25) mg/dL Estimated GFR ML/MIN Glucose (74-106) mg/dL POC Glucometer 95 92 (74 to 106) mg/dL Calcium (8.4-10.2) mg/dL Total Bilirubin (0.2-1.3) mg/dL AST (17-59) U/L ALT (0-50) U/L Alkaline Phosphatase (38-126) U/L Troponin I < 0.012 (0.000-0.034) ng/mL Serum Total Protein (6.3-8.2) g/dL Albumin (3.5-5.0) g/dL Urine Color (Yellow) Urine Appearance (Clear) Urine pH (4.6-8.0) Ur Specific [place] (1.005-1.030) Urine Protein (Negative) Urine Glucose (UA) (Negative) mg/dL Urine Ketones (Negative) Urine Blood (Negative) Urine Nitrite (Negative) Urine Bilirubin (Negative) Urine Urobilinogen (0.2) mg/dL Ur Leukocyte Esterase (Negative) U Hyaline Cast (Auto) (0-2) /LPF Urine Microscopic RBC (0-5) /HPF Urine Microscopic WBC (0-5) /HPF Ur Epithelial Cells (None Seen) /HPF Urine Bacteria (None Seen) /HPF Urine Culture Reflexed (NO) Urine Opiates Level (NEGATIVE) Ur Methadone (NEGATIVE) Urine Barbiturates (NEGATIVE) Ur Phencyclidine (PCP) (NEGATIVE) Urine Amphetamine (NEGATIVE) U Benzodiazepine Level (NEGATIVE) Urine Cocaine (NEGATIVE) Urine Marijuana (THC) (NEGATIVE) Ethyl Alcohol (0-10) mg/dL 03/18/23 03/18/23 03/18/23 Range/Units 18:15 20:03 20:26 WBC (4.0-10.5) x10^3/uL RBC (4.1-5.6) x10^6/uL Hgb (12.5-18.0) g/dL Hct (42-50) % MCV (78-100) fL MCH (26-32) pg MCHC (32-36) g/dL RDW (11.5-14.0) % Plt Count (150-450) x10^3/uL MPV (7.5-11.0) fL Gran % (36.0-66.0) % Immature Gran % (Auto) (0.00-0.4) % Nucleat RBC Rel Count (0.00-0.1) % Eos # (Auto) (0-0.5) x10^3/uL Immature Gran # (Auto) (0.00-0.03) x10^3u/L Absolute Lymphs (auto) (1.0-4.6) x10^3/uL Absolute Monos (auto) (0.0-1.3) x10^3/uL Absolute Nucleated RBC (0.00-0.01) x10^3u/L Lymphocytes % (24.0-44.0) % Monocytes % (0.0-12.0) % Eosinophils % (0.00-5.0) % Basophils % (0.0-0.4) % Absolute Granulocytes (1.4-6.9) x10^3/uL Basophils # (0-0.4) x10^3/uL APTT (25.1-36.5) SECONDS Sodium (137-145) mmol/L Potassium (3.5-5.1) mmol/L Chloride (98-107) mmol/L Carbon Dioxide (22-30) mmol/L Anion Gap (5-15) MEQ/L BUN (9-20) mg/dL Creatinine (0.66-1.25) mg/dL Estimated GFR ML/MIN Glucose (74-106) mg/dL POC Glucometer 54 L 153 H (74 to 106) mg/dL Calcium (8.4-10.2) mg/dL Total Bilirubin (0.2-1.3) mg/dL AST (17-59) U/L ALT (0-50) U/L Alkaline Phosphatase (38-126) U/L Troponin I 0.065 H* (0.000-0.034) ng/mL Serum Total Protein (6.3-8.2) g/dL Albumin (3.5-5.0) g/dL Urine Color (Yellow) Urine Appearance (Clear) Urine pH (4.6-8.0) Ur Specific [place] (1.005-1.030) Urine Protein (Negative) Urine Glucose (UA) (Negative) mg/dL Urine Ketones (Negative) Urine Blood (Negative) Urine Nitrite (Negative) Urine Bilirubin (Negative) Urine Urobilinogen (0.2) mg/dL Ur Leukocyte Esterase (Negative) U Hyaline Cast (Auto) (0-2) /LPF Urine Microscopic RBC (0-5) /HPF Urine Microscopic WBC (0-5) /HPF Ur Epithelial Cells (None Seen) /HPF Urine Bacteria (None Seen) /HPF Urine Culture Reflexed (NO) Urine Opiates Level (NEGATIVE) Ur Methadone (NEGATIVE) Urine Barbiturates (NEGATIVE) Ur Phencyclidine (PCP) (NEGATIVE) Urine Amphetamine (NEGATIVE) U Benzodiazepine Level (NEGATIVE) Urine Cocaine (NEGATIVE) Urine Marijuana (THC) (NEGATIVE) Ethyl Alcohol (0-10) mg/dL 03/19/23 03/19/23 Range/Units 00:03 04:22 WBC (4.0-10.5) x10^3/uL RBC (4.1-5.6) x10^6/uL Hgb (12.5-18.0) g/dL Hct (42-50) % MCV (78-100) fL MCH (26-32) pg MCHC (32-36) g/dL RDW (11.5-14.0) % Plt Count (150-450) x10^3/uL MPV (7.5-11.0) fL Gran % (36.0-66.0) % Immature Gran % (Auto) (0.00-0.4) % Nucleat RBC Rel Count (0.00-0.1) % Eos # (Auto) (0-0.5) x10^3/uL Immature Gran # (Auto) (0.00-0.03) x10^3u/L Absolute Lymphs (auto) (1.0-4.6) x10^3/uL Absolute Monos (auto) (0.0-1.3) x10^3/uL Absolute Nucleated RBC (0.00-0.01) x10^3u/L Lymphocytes % (24.0-44.0) % Monocytes % (0.0-12.0) % Eosinophils % (0.00-5.0) % Basophils % (0.0-0.4) % Absolute Granulocytes (1.4-6.9) x10^3/uL Basophils # (0-0.4) x10^3/uL APTT (25.1-36.5) SECONDS Sodium (137-145) mmol/L Potassium (3.5-5.1) mmol/L Chloride (98-107) mmol/L Carbon Dioxide (22-30) mmol/L Anion Gap (5-15) MEQ/L BUN (9-20) mg/dL Creatinine (0.66-1.25) mg/dL Estimated GFR ML/MIN Glucose (74-106) mg/dL POC Glucometer 172 H 154 H (74 to 106) mg/dL Calcium (8.4-10.2) mg/dL Total Bilirubin (0.2-1.3) mg/dL AST (17-59) U/L ALT (0-50) U/L Alkaline Phosphatase (38-126) U/L Troponin I (0.000-0.034) ng/mL Serum Total Protein (6.3-8.2) g/dL Albumin (3.5-5.0) g/dL Urine Color (Yellow) Urine Appearance (Clear) Urine pH (4.6-8.0) Ur Specific [place] (1.005-1.030) Urine Protein (Negative) Urine Glucose (UA) (Negative) mg/dL Urine Ketones (Negative) Urine Blood (Negative) Urine Nitrite (Negative) Urine Bilirubin (Negative) Urine Urobilinogen (0.2) mg/dL Ur Leukocyte Esterase (Negative) U Hyaline Cast (Auto) (0-2) /LPF Urine Microscopic RBC (0-5) /HPF Urine Microscopic WBC (0-5) /HPF Ur Epithelial Cells (None Seen) /HPF Urine Bacteria (None Seen) /HPF Urine Culture Reflexed (NO) Urine Opiates Level (NEGATIVE) Ur Methadone (NEGATIVE) Urine Barbiturates (NEGATIVE) Ur Phencyclidine (PCP) (NEGATIVE) Urine Amphetamine (NEGATIVE) U Benzodiazepine Level (NEGATIVE) Urine Cocaine (NEGATIVE) Urine Marijuana (THC) (NEGATIVE) Ethyl Alcohol (0-10) mg/dL Radiology Exams: Radiology Procedures Category Date Time Status CHEST 1 VIEW (PORTABLE) Stat Exams 03/18/23 10:27 Completed HEAD WITHOUT CONTRAST [CT] Stat Exams 03/18/23 10:27 Completed Multi-Disciplinary Progress Notes: Multi-Disciplinary Progress Notes 03/18/23 16:43 Pharmacy Note by Cody Keith Please be aware of possible drug interaction with Multaq and Zithromax. May prolong QT interval. Initialized on 03/18/23 16:43 - END OF NOTE Assessment/Plan (1) UTI (urinary tract infection) Current Visit: Yes Status: Acute Assessment & Plan: -UA suspicious of UTI, will treat empirically with Ceftriaxone, follow culture 03/19: -Ucult with gram negative rods, continue ceftriaxone for now Code(s): N39.0 - URINARY TRACT INFECTION, SITE NOT SPECIFIED (2) Altered mental status Current Visit: Yes Status: Chronic Assessment & Plan: -multifocal cause, UTI/hypoglycemia, will treat underlying cause, CT negative for acute etiology, will continue to monitor, consider MRI if worsening 03/19: -Has improved some, A&O to self/place/president Code(s): R41.82 - ALTERED MENTAL STATUS, UNSPECIFIED (3) Infiltrate noted on imaging study Current Visit: Yes Status: Acute Assessment & Plan: -infiltrate vs atelectasis, on ceftriaxone for UTI, will add azithromycin -crackles noted on auscultation -on RA, supplemental oxygen as needed to maintain spo2>92% -RT consult 03/19: -Crackles noted on exam -On RA -Continue azith/ceftriax Code(s): R93.89 - ABNORMAL FINDINGS ON DX IMAGING OF OTH BODY STRUCTURES (4) History of stroke Current Visit: Yes Status: Acute Assessment & Plan: -noted, continue home meds 03/19: -Concern for aspiration/ previous MBS with recs for NPO/alternative feeding, patient/family refusing Code(s): Z86.73 - PRSNL HX OF TIA (TIA), AND CEREB INFRC W/O RESID DEFICITS (5) CAD (coronary artery disease) Current Visit: No Status: Chronic Qualifiers: Coronary Disease-Associated Artery/Lesion type: [place] artery [place] vs. transplanted heart: [place] heart Associated angina: without angina Qualified Code(s): I25.10 - Atherosclerotic heart disease of [place] coronary artery without angina pectoris Assessment & Plan: -continue home meds Code(s): I25.10 - ATHSCL HEART DISEASE OF [place] CORONARY ARTERY W/O ANG PCTRS (6) Chronic a-fib Current Visit: No Status: Chronic Assessment & Plan: -continue eliquis -EKG with NS Code(s): I48.20 - CHRONIC ATRIAL FIBRILLATION, UNSPECIFIED (7) Failure to thrive Current Visit: No Status: Chronic Assessment & Plan: -Nutrition consult, patient refused peg placement on previous admission, will discuss again with family Code(s): XNV0446 - (8) Type 2 diabetes mellitus Current Visit: No Status: Chronic Qualifiers: Diabetes mellitus long term care phlebotomist insulin use: with long term care phlebotomist use Diabetes mellitus complication status: with hyperglycemia Qualified Code(s): E11.65 - Type 2 diabetes mellitus with hyperglycemia; Z79.4 - terminal carman (current) use of insulin Assessment & Plan: -will add ssi, low dose, patient has not been eating/drinking, will hold all other meds (9) Hypoglycemia Current Visit: No Status: Resolved Assessment & Plan: -see above 03/19: -IVF changed to D5 to maintain glucose levels #Chest pain -EKG with no acute ischemic changes -trops elevated, will consults cards --echo Code(s): N39.0 - URINARY TRACT INFECTION, SITE NOT SPECIFIED (2) Altered mental status Current Visit: Yes Status: Chronic Code(s): R41.82 - ALTERED MENTAL STATUS, UNSPECIFIED (3) Infiltrate noted on imaging study Current Visit: Yes Status: Acute Code(s): R93.89 - ABNORMAL FINDINGS ON DX IMAGING OF OTH BODY STRUCTURES (4) History of stroke Current Visit: Yes Status: Acute Code(s): Z86.73 - PRSNL HX OF TIA (TIA), AND CEREB INFRC W/O RESID DEFICITS (5) CAD (coronary artery disease) Current Visit: No Status: Chronic Qualifiers: Coronary Disease-Associated Artery/Lesion type: [place] artery [place] vs. transplanted heart: [place] heart Associated angina: without angina Qualified Code(s): I25.10 - Atherosclerotic heart disease of [place] coronary artery without angina pectoris Code(s): I25.10 - ATHSCL HEART DISEASE OF [place] CORONARY ARTERY W/O ANG PCTRS (6) Chronic a-fib Current Visit: No Status: Chronic Code(s): I48.20 - CHRONIC ATRIAL FIBRILLATION, UNSPECIFIED (7) Failure to thrive Current Visit: No Status: Chronic Code(s): [id number] - (8) Type 2 diabetes mellitus Current Visit: No Status: Chronic Qualifiers: Diabetes mellitus long term care phlebotomist insulin use: with long term care phlebotomist use Diabetes mellitus complication status: with hyperglycemia Qualified Code(s): E11.65 - Type 2 diabetes mellitus with hyperglycemia; Z79.4 - care home (current) use of insulin (9) Hypoglycemia Current Visit: No Status: Resolved Code(s): E16.2 - HYPOGLYCEMIA, UNSPECIFIED (10) Chest pain Current Visit: Yes Status: Acute Code(s): R07.9 - CHEST PAIN, UNSPECIFIED (11) Elevated troponin Current Visit: Yes Status: Acute Code(s): R79.89 - OTHER SPECIFIED ABNORMAL FINDINGS OF BLOOD CHEMISTRY
[2023-03-19 05:28] LABS: ANION GAP 6.2 MEQ/L (5-15); BILIRUBIN,TOTAL 0.6 mg/dL (0.2-1.3); Calcium 8.9 mg/dL (8.4-10.2); Creatinine 1 0.4 mg/dL (0.66-1.25); EST GLOMERULAR FILTRATION RATE 117.4 ML/MIN; Potassium 4.3 mmol/L (3.5-5.1); Total Protein 5.5 g/dL (6.3-8.2)
[2023-03-19] MEDS ORDERED: Dextrose 5%/Water IV Soln. 1000 ML 1,000 ML IV ONE (06:21)
[2023-03-19] MEDS: Dextrose 5%-NS IV Solution 1000 ML 1,000 ML IV SCH (06:22)
[2023-03-19] MEDS: VENTOLIN COMMON CANISTER IH SCH ×4 (06:55→18:25)
[2023-03-19] MEDS: ROCEPHIN 2 Gm-D5w 50ML BAG** 2 G/50 ML IVPB IV SCH (09:32)
[2023-03-19] MEDS: PROAMATINE PO SCH ×3 (09:37→17:23)
[2023-03-19] MEDS ORDERED: NON-FORMULARY ITEM (Budesonide [Budesonide Dr] 3 MG Capdr...Er) PO SCH (10:00)
[2023-03-19 11:36] LABS: Absolute Neutrophil Ct (ANC) 7.64 x10^3/uL (1.4-6.9); BASOPHIL % 0.4 % (0.0-0.4); Basophil (Absolute #) 0.04 x10^3/uL (0-0.4); Eosinophil % 1.7 % (0.00-5.0); Eosinophil (Absolute #) 0.15 x10^3/uL (0-0.5); Hematocrit 33.5 % (42-50); Hemoglobin 10.3 g/dL (12.5-18.0); IMMATURE GRAN # 0.07 x10^3u/L (0.00-0.03); IMMATURE GRAN % 0.8 % (0.00-0.4); Lymphocyte (Absolute #) 0.74 x10^3/uL (1.0-4.6); Lymphocytes % 8.1 % (24.0-44.0); Mean Cell Volume 97.1 fL (78-100); Mean Corpuscular Hemoglobin 29.9 pg (26-32); Mean Corpuscular Hgb Concent. 30.7 g/dL (32-36); Mean Platelet Volume 12.5 fL (7.5-11.0); Monocyte (Absolute #) 0.45 x10^3/uL (0.0-1.3); Platelet Count 203 x10^3/uL (150-450); Red Blood Count 3.45 x10^6/uL (4.1-5.6); Red Cell Distribution Width 13.2 % (11.5-14.0); White Blood Count 9.1 x10^3/uL (4.0-10.5)
[2023-03-19] MEDS: Zithromax 500 MG/ 250 ML NaCl Premix 500 MG/250 ML IVPB IV SCH (11:40)
[2023-03-19] MEDS ORDERED: Ativan 2 MG/1 ML VIAL IV PRN (12:10)
[2023-03-19] MEDS: ELIQUIS 2.5 MG TABLET PO SCH ×3 (14:42→21:41)
[2023-03-19] MEDS: ECOTRIN 81 MG PO SCH ×2 (14:42→17:22)
[2023-03-19] MEDS: FEOSOL 325 MG PO SCH (14:43)
[2023-03-19] MEDS: MAG-OX 400 PO SCH (14:43)
[2023-03-19] MEDS: Protonix 40MG Tablet PO SCH ×2 (14:43→17:24)
[2023-03-19] MEDS: Proscar 5 MG PO SCH (14:43)
[2023-03-19] MEDS: Metamucil PACKET PO SCH (14:43)
[2023-03-19] MEDS: FISH OIL 1,000 MG CAPSULE PO SCH (14:43)
[2023-03-19] MEDS ORDERED: Sodium Chloride 0.9% 1000 ML 1,000 ML IV SCH ×2 (17:00→18:00)
[2023-03-19] MEDS: HUMALOG SQ PRN ×2 (18:00→21:40)
[2023-03-19] MEDS: Flomax 0.4 MG PO SCH (21:40)
[2023-03-19] MEDS: Zocor 10MG PO SCH (21:41)
[2023-03-19] MEDS: MYRBETRIQ PO SCH (21:41)
[2023-03-19] MEDS ORDERED: ENOXAPARIN SODIUM SQ SCH (22:00)
[2023-03-20 04:59] LABS: Absolute Neutrophil Ct (ANC) 10.08 x10^3/uL (1.4-6.9); BASOPHIL % 0.7 % (0.0-0.4); Basophil (Absolute #) 0.08 x10^3/uL (0-0.4); Eosinophil (Absolute #) 0.12 x10^3/uL (0-0.5); Hematocrit 33.6 % (42-50); Hemoglobin 10.8 g/dL (12.5-18.0); IMMATURE GRAN # 0.08 x10^3u/L (0.00-0.03); IMMATURE GRAN % 0.7 % (0.00-0.4); Lymphocyte (Absolute #) 0.54 x10^3/uL (1.0-4.6); Lymphocytes % 4.7 % (24.0-44.0); Mean Cell Volume 93.9 fL (78-100); Mean Corpuscular Hemoglobin 30.2 pg (26-32); Mean Corpuscular Hgb Concent. 32.1 g/dL (32-36); Mean Platelet Volume 11.3 fL (7.5-11.0); Monocytes % 5.2 % (0.0-12.0); Neutrophil % 87.7 % (36.0-66.0); Platelet Count 192 x10^3/uL (150-450); Red Blood Count 3.58 x10^6/uL (4.1-5.6); Red Cell Distribution Width 12.7 % (11.5-14.0); White Blood Count 11.5 x10^3/uL (4.0-10.5)
[2023-03-20 05:12] LABS: ALBUMIN 3.3 g/dL (3.5-5.0); ANION GAP 11.6 MEQ/L (5-15); Calcium 8.8 mg/dL (8.4-10.2); Creatinine 1 0.51 mg/dL (0.66-1.25); EST GLOMERULAR FILTRATION RATE 109.1 ML/MIN; Potassium 4.3 mmol/L (3.5-5.1); Total Protein 6.3 g/dL (6.3-8.2)
--- NOTE | 2023-03-20 05:29 | PCM.NOTE ---
Date and Time: 03/20/23 0527 Subjective Assessment: HPI: 03/18 is a 68 year old male with a pmhx of DM, CAD, CO (s/p CABG/stent) , TIA, Crohns, AFIB (eliquis), GERD, and HTN who presents from the NH with confusion. No family present at time of interview, patient poor historian but from ED documentation it appears patient's mental status has been deteriorating, and he has not been eating drinking. Family reported to ED that they requested several times for urine to be checked. He has been receiving full dose of insulin despite poor appetite. In ED vitals unremarkable. CT of head demonstrating non-acute senile brain with mulitfocal remote lucunar infarct. CXR with bibasilar infiltrates vs atelectasis. EKG NS RBBB. Labs unremarkable with the exception of his urinalysis which shows positive nitrites and leuks suspicious for infection. Patient also had a low blood glucose level on arrival of 64. He was given a dose of Merrem, ceftriaxone, and dextrose. 03/19: Met with patient bedside. Patient more alert, orientated to self/place/president, unsure of year. RN reported that patient was complaining of CP this morning. EKG did not show acute ischemic changes. Trops are uptrending, patient refusing additional labs. Cardiology has been consulted Patient currently at NPO status due to risk of aspiration. Spoke with María Phillip regarding swallow status. Patient did have MBS 35 days ago as IP with recs for NPO and w/alternative feedings. Discussed with patient as well as dual POA David Hall/Grace Kaplan (witness Shyla Moe RN) concerns aspiration with a regular diet leading to more severe issues such as pneumonia, chronic lung scaring, and potentially . Options for alternative nutrition were provided including TPN, NG, and PEG. Patient as well as family states patient consumes normal diet at his nursing facility which has been confirmed and they would like patient to have diet. Additionally, they have decline any alternative methods of nutrition and they do not wish to change code status to DNR at this time. OBJECTIVE DATA Vital Signs: Vital Signs - 24 hr Temp Pulse Resp BP Pulse Ox 03/20/23 03:00 97.9 F 95 H 16 165/75 93 L 03/19/23 23:00 89 18 97 03/19/23 19:00 98.2 F 94 H 19 170/70 97 03/19/23 18:26 89 18 95 03/19/23 15:14 77 16 94 L 03/19/23 15:00 97.6 F 81 16 166/73 94 L 03/19/23 11:00 97.8 F 60 16 139/63 92 L 03/19/23 07:00 97.8 F 77 16 170/76 92 L 03/19/23 06:57 77 16 95 Pain Assessment - Last Documented Pain Intensity 2 Intake and Output: Intake & Output 03/17/23 03/18/23 03/19/23 03/20/23 11:59 11:59 11:59 11:59 Intake Total 0 1623 Output Total 50 1750 Balance -50 -127 Weight 49 kg 50.4 kg Lab Results: Lab Results-Last 24 Hours 03/19/23 03/19/23 03/19/23 Range/Units 04:56 04:56 06:19 WBC 9.1 (4.0-10.5) x10^3/uL RBC 3.45 L (4.1-5.6) x10^6/uL Hgb 10.3 L (12.5-18.0) g/dL Hct 33.5 L (42-50) % MCV 97.1 (78-100) fL MCH 29.9 (26-32) pg MCHC 30.7 L (32-36) g/dL RDW 13.2 (11.5-14.0) % Plt Count 203 (150-450) x10^3/uL MPV 12.5 H (7.5-11.0) fL Gran % 84.0 H (36.0-66.0) % Immature Gran % (Auto) 0.8 H (0.00-0.4) % Nucleat RBC Rel Count 0.0 (0.00-0.1) % Eos # (Auto) 0.15 (0-0.5) x10^3/uL Immature Gran # (Auto) 0.07 H (0.00-0.03) x10^3u/L Absolute Lymphs (auto) 0.74 L (1.0-4.6) x10^3/uL Absolute Monos (auto) 0.45 (0.0-1.3) x10^3/uL Absolute Nucleated RBC 0.00 (0.00-0.01) x10^3u/L Lymphocytes % 8.1 L (24.0-44.0) % Monocytes % 5.0 (0.0-12.0) % Eosinophils % 1.7 (0.00-5.0) % Basophils % 0.4 (0.0-0.4) % Absolute Granulocytes 7.64 H (1.4-6.9) x10^3/uL Basophils # 0.04 (0-0.4) x10^3/uL Sodium 131 L (137-145) mmol/L Potassium 4.3 (3.5-5.1) mmol/L Chloride 100 (98-107) mmol/L Carbon Dioxide 30 (22-30) mmol/L Anion Gap 6.2 (5-15) MEQ/L BUN 12 (9-20) mg/dL Creatinine 0.40 L (0.66-1.25) mg/dL Estimated GFR 117.4 ML/MIN Glucose 169 H (74-106) mg/dL POC Glucometer 174 H (74 to 106) mg/dL Calcium 8.9 (8.4-10.2) mg/dL Total Bilirubin 0.60 (0.2-1.3) mg/dL AST 22 (17-59) U/L ALT 23 (0-50) U/L Alkaline Phosphatase 167 H (38-126) U/L Troponin I (0.000-0.034) ng/mL Serum Total Protein 5.5 L (6.3-8.2) g/dL Albumin 3.0 L (3.5-5.0) g/dL 03/19/23 03/19/23 03/19/23 Range/Units 09:45 11:04 15:00 WBC (4.0-10.5) x10^3/uL RBC (4.1-5.6) x10^6/uL Hgb (12.5-18.0) g/dL Hct (42-50) % MCV (78-100) fL MCH (26-32) pg MCHC (32-36) g/dL RDW (11.5-14.0) % Plt Count (150-450) x10^3/uL MPV (7.5-11.0) fL Gran % (36.0-66.0) % Immature Gran % (Auto) (0.00-0.4) % Nucleat RBC Rel Count (0.00-0.1) % Eos # (Auto) (0-0.5) x10^3/uL Immature Gran # (Auto) (0.00-0.03) x10^3u/L Absolute Lymphs (auto) (1.0-4.6) x10^3/uL Absolute Monos (auto) (0.0-1.3) x10^3/uL Absolute Nucleated RBC (0.00-0.01) x10^3u/L Lymphocytes % (24.0-44.0) % Monocytes % (0.0-12.0) % Eosinophils % (0.00-5.0) % Basophils % (0.0-0.4) % Absolute Granulocytes (1.4-6.9) x10^3/uL Basophils # (0-0.4) x10^3/uL Sodium (137-145) mmol/L Potassium (3.5-5.1) mmol/L Chloride (98-107) mmol/L Carbon Dioxide (22-30) mmol/L Anion Gap (5-15) MEQ/L BUN (9-20) mg/dL Creatinine (0.66-1.25) mg/dL Estimated GFR ML/MIN Glucose (74-106) mg/dL POC Glucometer 261 H (74 to 106) mg/dL Calcium (8.4-10.2) mg/dL Total Bilirubin (0.2-1.3) mg/dL AST (17-59) U/L ALT (0-50) U/L Alkaline Phosphatase (38-126) U/L Troponin I 0.188 H* 0.141 H* (0.000-0.034) ng/mL Serum Total Protein (6.3-8.2) g/dL Albumin (3.5-5.0) g/dL 03/19/23 03/19/23 03/20/23 Range/Units 16:31 20:55 04:50 WBC 11.5 H (4.0-10.5) x10^3/uL RBC 3.58 L (4.1-5.6) x10^6/uL Hgb 10.8 L (12.5-18.0) g/dL Hct 33.6 L (42-50) % MCV 93.9 (78-100) fL MCH 30.2 (26-32) pg MCHC 32.1 (32-36) g/dL RDW 12.7 (11.5-14.0) % Plt Count 192 (150-450) x10^3/uL MPV 11.3 H (7.5-11.0) fL Gran % 87.7 H (36.0-66.0) % Immature Gran % (Auto) 0.7 H (0.00-0.4) % Nucleat RBC Rel Count 0.0 (0.00-0.1) % Eos # (Auto) 0.12 (0-0.5) x10^3/uL Immature Gran # (Auto) 0.08 H (0.00-0.03) x10^3u/L Absolute Lymphs (auto) 0.54 L (1.0-4.6) x10^3/uL Absolute Monos (auto) 0.60 (0.0-1.3) x10^3/uL Absolute Nucleated RBC 0.00 (0.00-0.01) x10^3u/L Lymphocytes % 4.7 L (24.0-44.0) % Monocytes % 5.2 (0.0-12.0) % Eosinophils % 1.0 (0.00-5.0) % Basophils % 0.7 (0.0-0.4) % Absolute Granulocytes 10.08 H (1.4-6.9) x10^3/uL Basophils # 0.08 (0-0.4) x10^3/uL Sodium (137-145) mmol/L Potassium (3.5-5.1) mmol/L Chloride (98-107) mmol/L Carbon Dioxide (22-30) mmol/L Anion Gap (5-15) MEQ/L BUN (9-20) mg/dL Creatinine (0.66-1.25) mg/dL Estimated GFR ML/MIN Glucose (74-106) mg/dL POC Glucometer 284 H 269 H (74 to 106) mg/dL Calcium (8.4-10.2) mg/dL Total Bilirubin (0.2-1.3) mg/dL AST (17-59) U/L ALT (0-50) U/L Alkaline Phosphatase (38-126) U/L Troponin I (0.000-0.034) ng/mL Serum Total Protein (6.3-8.2) g/dL Albumin (3.5-5.0) g/dL 03/20/23 Range/Units 04:50 WBC (4.0-10.5) x10^3/uL RBC (4.1-5.6) x10^6/uL Hgb (12.5-18.0) g/dL Hct (42-50) % MCV (78-100) fL MCH (26-32) pg MCHC (32-36) g/dL RDW (11.5-14.0) % Plt Count (150-450) x10^3/uL MPV (7.5-11.0) fL Gran % (36.0-66.0) % Immature Gran % (Auto) (0.00-0.4) % Nucleat RBC Rel Count (0.00-0.1) % Eos # (Auto) (0-0.5) x10^3/uL Immature Gran # (Auto) (0.00-0.03) x10^3u/L Absolute Lymphs (auto) (1.0-4.6) x10^3/uL Absolute Monos (auto) (0.0-1.3) x10^3/uL Absolute Nucleated RBC (0.00-0.01) x10^3u/L Lymphocytes % (24.0-44.0) % Monocytes % (0.0-12.0) % Eosinophils % (0.00-5.0) % Basophils % (0.0-0.4) % Absolute Granulocytes (1.4-6.9) x10^3/uL Basophils # (0-0.4) x10^3/uL Sodium 130 L (137-145) mmol/L Potassium 4.3 (3.5-5.1) mmol/L Chloride 97 L (98-107) mmol/L Carbon Dioxide 25 (22-30) mmol/L Anion Gap 11.6 (5-15) MEQ/L BUN 13 (9-20) mg/dL Creatinine 0.51 L (0.66-1.25) mg/dL Estimated GFR 109.1 ML/MIN Glucose 222 H (74-106) mg/dL POC Glucometer (74 to 106) mg/dL Calcium 8.8 (8.4-10.2) mg/dL Total Bilirubin 1.00 (0.2-1.3) mg/dL AST 23 (17-59) U/L ALT 23 (0-50) U/L Alkaline Phosphatase 197 H (38-126) U/L Troponin I (0.000-0.034) ng/mL Serum Total Protein 6.3 (6.3-8.2) g/dL Albumin 3.3 L (3.5-5.0) g/dL Radiology Exams: Radiology Procedures Category Date Time Status CHEST 1 VIEW (PORTABLE) Stat Exams 03/18/23 10:27 Completed ECHO W/2D AND DOPPLER [US] Stat Exams 03/19/23 13:09 Taken HEAD WITHOUT CONTRAST [CT] Stat Exams 03/18/23 10:27 Completed Multi-Disciplinary Progress Notes: Multi-Disciplinary Progress Notes 03/19/23 16:45 Occupational Therapy Note by Davide([id number])[facility] Occupational Therapy Note Nursing and [place] going into patient room at time OTR approached for OT Eval. Hold OT Evaluation at this time secondary to medical consult occurring at this time and patient/family/staff coordination on feeding status and method. OTR will coordinate with IDT and attempt OT Evaluation again tomorrow. Initialized on 03/19/23 16:45 - END OF NOTE 03/19/23 10:17 Physical Therapy Note by Sowmya(L#[id number]),Grace PHILLIP, TENT ASSEMBLER NOT AVAILABLE THIS DATE SHE IS OUT OF STATE. MARÍA DISCUSSED PT'S SWALLOW STATUS VIA CELL PHONE W/ GHASSAN HANEY NP. PT. HAD MBS 35 DAYS AGO AND MARÍA RECOMMENDED NPO W/ ALTERNATIVE FEEDING AFTER MBS. FAMILY AND PT. REFUSED ALTERNATIVE FEEDING AT THAT TIME DESPITE BEING MADE AWARE OF THE RISKS OF ASPIRATION. MARÍA WILL BE IN TOMORROW 03/20 AND WILL REVIEW THESE CONCERNS W/ PT. AND FAMILY AT LENGTH TOMORROW. Initialized on 03/19/23 10:17 - END OF NOTE Assessment/Plan (1) UTI (urinary tract infection) Current Visit: Yes Status: Acute Assessment & Plan: -infiltrate vs atelectasis, on ceftriaxone for UTI, will add azithromycin -crackles noted on auscultation -on RA, supplemental oxygen as needed to maintain spo2>92% -RT consult 03/19: -Crackles noted on exam -On RA -Continue azith/ceftriax Code(s): R93.89 - ABNORMAL FINDINGS ON DX IMAGING OF OTH BODY STRUCTURES (4) History of stroke Current Visit: Yes Status: Acute Assessment & Plan: -noted, continue home meds 03/19: -Concern for aspiration/ previous MBS with recs for NPO/alternative feeding, patient/family refusing Code(s): Z86.73 - PRSNL HX OF TIA (TIA), AND CEREB INFRC W/O RESID DEFICITS (5) CAD (coronary artery disease) Current Visit: No Status: Chronic Qualifiers: Coronary Disease-Associated Artery/Lesion type: [place] artery [place] vs. transplanted heart: [place] heart Associated angina: without angina Qualified Code(s): I25.10 - Atherosclerotic heart disease of [place] coronary artery without angina pectoris Assessment & Plan: -continue home meds Code(s): I25.10 - ATHSCL HEART DISEASE OF [place] CORONARY ARTERY W/O ANG PCTRS (6) Chronic a-fib Current Visit: No Status: Chronic Assessment & Plan: -continue eliquis -EKG with NS Code(s): I48.20 - CHRONIC ATRIAL FIBRILLATION, UNSPECIFIED (7) Failure to thrive Current Visit: No Status: Chronic Assessment & Plan: -Nutrition consult, patient refused peg placement on previous admission, will discuss again with family Code(s): NUI5378 - (8) Type 2 diabetes mellitus Current Visit: No Status: Chronic Qualifiers: Diabetes mellitus terminal clerk insulin use: with terminal clerk use Diabetes mellitus complication status: with hyperglycemia Qualified Code(s): E11.65 - Type 2 diabetes mellitus with hyperglycemia; Z79.4 - group home (current) use of insulin Assessment & Plan: -will add ssi, low dose, patient has not been eating/drinking, will hold all ot her meds (9) Hypoglycemia Current Visit: No Status: Resolved Assessment & Plan: -see above 03/19: -IVF changed to D5 to maintain glucose levels #Chest pain -EKG with no acute ischemic changes -trops elevated, will consults cards --echo Code(s): N39.0 - URINARY TRACT INFECTION, SITE NOT SPECIFIED (2) Altered mental status Current Visit: Yes Status: Chronic Code(s): R41.82 - ALTERED MENTAL STATUS, UNSPECIFIED (3) Infiltrate noted on imaging study Current Visit: Yes Status: Acute Code(s): R93.89 - ABNORMAL FINDINGS ON DX IMAGING OF [facility] BODY STRUCTURES (4) History of stroke Current Visit: Yes Status: Acute Code(s): Z86.73 - PRSNL HX OF TIA (TIA), AND CEREB INFRC W/O RESID DEFICITS (5) CAD (coronary artery disease) Current Visit: No Status: Chronic Qualifiers: Coronary Disease-Associated Artery/Lesion type: [place] artery [place] vs. transplanted heart: [place] heart Associated angina: without angina Qualified Code(s): I25.10 - Atherosclerotic heart disease of [place] coronary artery without angina pectoris Code(s): I25.10 - ATHSCL HEART DISEASE OF [place] CORONARY ARTERY W/O ANG PCTRS (6) Chronic a-fib Current Visit: No Status: Chronic Code(s): I48.20 - CHRONIC ATRIAL FIBRILLATION, UNSPECIFIED (7) Failure to thrive Current Visit: No Status: Chronic Code(s): USE5516 - (8) Type 2 diabetes mellitus Current Visit: No Status: Chronic Qualifiers: Diabetes mellitus terminal clerk insulin use: with custodial use Diabetes mellitus complication status: with hyperglycemia Qualified Code(s): E11.65 - Type 2 diabetes mellitus with hyperglycemia; Z79.4 - group home (current) use of insulin (9) Hypoglycemia Current Visit: No Status: Resolved Code(s): E16.2 - HYPOGLYCEMIA, UNSPECIFIED (10) Chest pain Current Visit: Yes Status: Acute Code(s): R07.9 - CHEST PAIN, UNSPECIFIED (11) Elevated troponin Current Visit: Yes Status: Acute Code(s): R79.89 - OTHER SPECIFIED ABNORMAL FINDINGS OF BLOOD CHEMISTRY
[2023-03-20 07:16] LABS: Slide Review 1 YES
[2023-03-20] MEDS: VENTOLIN COMMON CANISTER IH SCH ×2 (07:18→11:20)
[2023-03-20] MEDS: ROCEPHIN 2 Gm-D5w 50ML BAG** 2 G/50 ML IVPB IV SCH (09:13)
[2023-03-20] MEDS: FEOSOL 325 MG PO SCH (10:31)
[2023-03-20] MEDS: ECOTRIN 81 MG PO SCH (10:31)
[2023-03-20] MEDS: Zithromax 500 MG/ 250 ML NaCl Premix 500 MG/250 ML IVPB IV SCH (10:31)
[2023-03-20] MEDS: ELIQUIS 2.5 MG TABLET PO SCH (10:32)
[2023-03-20] MEDS: Protonix 40MG Tablet PO SCH (10:32)
[2023-03-20] MEDS: MAG-OX 400 PO SCH (10:32)
[2023-03-20] MEDS: FISH OIL 1,000 MG CAPSULE PO SCH (10:37)
[2023-03-20] MEDS: Proscar 5 MG PO SCH (10:41)
[2023-03-20] MEDS: PROAMATINE PO SCH ×2 (10:41→10:42)
[2023-03-20 10:57] VITALS: BP 117/60; TEMP 100.1
[2023-03-20 11:24] VITALS: PULSE 58; RESP 16; O2SAT 94
--- NOTE | 2023-03-20 11:43 | PCM.DS ---
Discharge Summary Date of Admission: 03/18/23 14:42 Date of Discharge: 03/20/23 Admitting Physician: ELISEO BANG MD Consults: Consults on Case 03/19/23 13:10 Consult Cardiology ROUTINE Primary Care Provider: JOSE ALBERTO GRAJEDA Allergies Allergies acetaminophen [From Percocet] Adverse Reaction (Verified 02/09/23 20:12) confusion hydromorphone [From Dilaudid] Adverse Reaction (Verified 02/09/23 20:12) confusion morphine Adverse Reaction (Verified 02/09/23 20:12) confusion oxycodone [From Percocet] Adverse Reaction (Verified 02/09/23 20:12) confusion Hospital Summary - Hospital Course Hospital Course: is a 68 year old male with a pmhx of DM, CAD, LA (s/p CABG/stent) , T IA, Crohns, AFIB (eliquis), GERD, and HTN who presented from the [place] with confusion diagnosed with UTI ucult with enterobacter sensitive to levaquin which he will discharge on. During hospital course RN reported that patient was complaining of CP this morning. EKG did not show acute ischemic changes. Trops are uptrending, patient refusing additional labs. Cardiology evaluated patient and added midodrine. Patient advised NPO status due to risk of aspiration. Spoke with Janice Phillip regarding swallow status. Patient did have MBS 35 days ago as IP with recs for NPO and w/alternative feedings. Discussed with patient as well as dual POA David Hall/Grace Kaplan (witness Shyla Moe, LIDA) concerns aspiration with a regular diet leading to more severe issues such as pneumonia, chronic lung scaring, and potentially . Options for alternative nutrition were provided including TPN, NG, and PEG. Patient as well as family states patient consumes normal diet and takes medications by mouth at his nursing facility which has been confirmed and they would like patient to have diet and take meds by mouth. Additionally, they have decline any alternative methods of nutrition and they do not wish to change code status to DNR at this time or any Hospice services. Reiterated to POA this morning the risk of aspiration and continued cycle of illness and potential fatality with consuming a normal diet, patient and family again decline any additional feeding/hospice services. Patient is a high risk for readmission. Patient does have a chronic de guzman, under the care of urology. New Diagnosis: UTI New Medications: Levaquin Follow Up: pcp/urology Latest Assessment & Plan -infiltrate vs atelectasis, on ceftriaxone for UTI, will add azithromycin -crackles noted on auscultation -on RA, supplemental oxygen as needed to maintain spo2>92% -RT consult 03/19: -Crackles noted on exam -On RA -Continue azith/ceftriax Code(s): R93.89 - ABNORMAL FINDINGS ON DX IMAGING OF OTH BODY STRUCTURES (4) History of stroke Current Visit: Yes Status: Acute Assessment & Plan: -noted, continue home meds 03/19: -Concern for aspiration/ previous MBS with recs for NPO/alternative feeding, patient/family refusing Code(s): Z86.73 - PRSNL HX OF TIA (TIA), AND CEREB INFRC W/O RESID DEFICITS (5) CAD (coronary artery disease) Current Visit: No Status: Chronic Qualifiers: Coronary Disease-Associated Artery/Lesion type: [place] artery [place] vs. transplanted heart: [place] heart Associated angina: without angina Qualified Code(s): I25.10 - Atherosclerotic heart disease of [place] coronary artery without angina pectoris Assessment & Plan: -continue home meds Code(s): I25.10 - ATHSCL HEART DISEASE OF [place] CORONARY ARTERY W/O ANG PCTRS (6) Chronic a-fib Current Visit: No Status: Chronic Assessment & Plan: -continue eliquis -EKG with NS Code(s): I48.20 - CHRONIC ATRIAL FIBRILLATION, UNSPECIFIED (7) Failure to thrive Current Visit: No Status: Chronic Assessment & Plan: -Nutrition consult, patient refused peg placement on previous admission, will discuss again with family Code(s): UNZ7500 - (8) Type 2 diabetes mellitus Current Visit: No Status: Chronic Qualifiers: Diabetes mellitus terminal block assembler insulin use: with retirement use Diabetes mellitus complication status: with hyperglycemia Qualified Code(s): E11.65 - Type 2 diabetes mellitus with hyperglycemia; Z79.4 - FDC (current) use of insulin Assessment & Plan: -will add ssi, low dose, patient has not been eating/drinking, will hold all other meds (9) Hypoglycemia Current Visit: No Status: Resolved Assessment & Plan: -see above 03/19: -IVF changed to D5 to maintain glucose levels #Chest pain -EKG with no acute ischemic changes -trops elevated, will consults cards --echo I spent 35 minutes [id number] with the patient on the day of discharge performing discharge exam, discussing hospital stay and discharge instructions with patient and caregivers, preparation of discharge records, prescriptions & referral forms and addressing any questions/concerns the patient had as documented above. - Vitals & Intake/Output Vital Signs: Vital Signs Temperature 100.1 F 03/20/23 10:35 Pulse Rate 95 H 03/20/23 10:35 Respiratory Rate 18 03/20/23 10:35 Blood Pressure 117/60 03/20/23 10:35 O2 Sat by Pulse Oximetry 90 L 03/20/23 10:35 Intake & Output: Intake & Output 03/17/23 03/18/23 03/19/23 03/20/23 11:59 11:59 11:59 11:59 Intake Total 0 1698 Output Total 50 1750 Balance -50 -52 Weight 49 kg 50.4 kg - Lab Result Diagrams: 03/20/23 04:50 03/20/23 04:50 Lab Results-Last 24 Hrs: Lab Results-Last 24 Hours 03/19/23 03/19/23 03/19/23 Range/Units 04:56 15:00 16:31 WBC 9.1 (4.0-10.5) x10^3/uL RBC 3.45 L (4.1-5.6) x10^6/uL Hgb 10.3 L (12.5-18.0) g/dL Hct 33.5 L (42-50) % MCV 97.1 (78-100) fL MCH 29.9 (26-32) pg MCHC 30.7 L (32-36) g/dL RDW 13.2 (11.5-14.0) % Plt Count 203 (150-450) x10^3/uL MPV 12.5 H (7.5-11.0) fL Gran % 84.0 H (36.0-66.0) % Immature Gran % (Auto) 0.8 H (0.00-0.4) % Nucleat RBC Rel Count 0.0 (0.00-0.1) % Eos # (Auto) 0.15 (0-0.5) x10^3/uL Immature Gran # (Auto) 0.07 H (0.00-0.03) x10^3u/L Absolute Lymphs (auto) 0.74 L (1.0-4.6) x10^3/uL Absolute Monos (auto) 0.45 (0.0-1.3) x10^3/uL Absolute Nucleated RBC 0.00 (0.00-0.01) x10^3u/L Lymphocytes % 8.1 L (24.0-44.0) % Monocytes % 5.0 (0.0-12.0) % Eosinophils % 1.7 (0.00-5.0) % Basophils % 0.4 (0.0-0.4) % Absolute Granulocytes 7.64 H (1.4-6.9) x10^3/uL Basophils # 0.04 (0-0.4) x10^3/uL Sodium (137-145) mmol/L Potassium (3.5-5.1) mmol/L Chloride (98-107) mmol/L Carbon Dioxide (22-30) mmol/L Anion Gap (5-15) MEQ/L BUN (9-20) mg/dL Creatinine (0.66-1.25) mg/dL Estimated GFR ML/MIN Glucose (74-106) mg/dL POC Glucometer 284 H (74 to 106) mg/dL Calcium (8.4-10.2) mg/dL Total Bilirubin (0.2-1.3) mg/dL AST (17-59) U/L ALT (0-50) U/L Alkaline Phosphatase (38-126) U/L Troponin I 0.141 H* (0.000-0.034) ng/mL Serum Total Protein (6.3-8.2) g/dL Albumin (3.5-5.0) g/dL Slides for Path Review 03/19/23 03/20/23 03/20/23 Range/Units 20:55 04:50 04:50 WBC 11.5 H (4.0-10.5) x10^3/uL RBC 3.58 L (4.1-5.6) x10^6/uL Hgb 10.8 L (12.5-18.0) g/dL Hct 33.6 L (42-50) % MCV 93.9 (78-100) fL MCH 30.2 (26-32) pg MCHC 32.1 (32-36) g/dL RDW 12.7 (11.5-14.0) % Plt Count 192 (150-450) x10^3/uL MPV 11.3 H (7.5-11.0) fL Gran % 87.7 H (36.0-66.0) % Immature Gran % (Auto) 0.7 H (0.00-0.4) % Nucleat RBC Rel Count 0.0 (0.00-0.1) % Eos # (Auto) 0.12 (0-0.5) x10^3/uL Immature Gran # (Auto) 0.08 H (0.00-0.03) x10^3u/L Absolute Lymphs (auto) 0.54 L (1.0-4.6) x10^3/uL Absolute Monos (auto) 0.60 (0.0-1.3) x10^3/uL Absolute Nucleated RBC 0.00 (0.00-0.01) x10^3u/L Lymphocytes % 4.7 L (24.0-44.0) % Monocytes % 5.2 (0.0-12.0) % Eosinophils % 1.0 (0.00-5.0) % Basophils % 0.7 (0.0-0.4) % Absolute Granulocytes 10.08 H (1.4-6.9) x10^3/uL Basophils # 0.08 (0-0.4) x10^3/uL Sodium 130 L (137-145) mmol/L Potassium 4.3 (3.5-5.1) mmol/L Chloride 97 L (98-107) mmol/L Carbon Dioxide 25 (22-30) mmol/L Anion Gap 11.6 (5-15) MEQ/L BUN 13 (9-20) mg/dL Creatinine 0.51 L (0.66-1.25) mg/dL Estimated GFR 109.1 ML/MIN Glucose 222 H (74-106) mg/dL POC Glucometer 269 H (74 to 106) mg/dL Calcium 8.8 (8.4-10.2) mg/dL Total Bilirubin 1.00 (0.2-1.3) mg/dL AST 23 (17-59) U/L ALT 23 (0-50) U/L Alkaline Phosphatase 197 H (38-126) U/L Troponin I (0.000-0.034) ng/mL Serum Total Protein 6.3 (6.3-8.2) g/dL Albumin 3.3 L (3.5-5.0) g/dL Slides for Path Review YES 03/20/23 Range/Units 07:48 WBC (4.0-10.5) x10^3/uL RBC (4.1-5.6) x10^6/uL Hgb (12.5-18.0) g/dL Hct (42-50) % MCV (78-100) fL MCH (26-32) pg MCHC (32-36) g/dL RDW (11.5-14.0) % Plt Count (150-450) x10^3/uL MPV (7.5-11.0) fL Gran % (36.0-66.0) % Immature Gran % (Auto) (0.00-0.4) % Nucleat RBC Rel Count (0.00-0.1) % Eos # (Auto) (0-0.5) x10^3/uL Immature Gran # (Auto) (0.00-0.03) x10^3u/L Absolute Lymphs (auto) (1.0-4.6) x10^3/uL Absolute Monos (auto) (0.0-1.3) x10^3/uL Absolute Nucleated RBC (0.00-0.01) x10^3u/L Lymphocytes % (24.0-44.0) % Monocytes % (0.0-12.0) % Eosinophils % (0.00-5.0) % Basophils % (0.0-0.4) % Absolute Granulocytes (1.4-6.9) x10^3/uL Basophils # (0-0.4) x10^3/uL Sodium (137-145) mmol/L Potassium (3.5-5.1) mmol/L Chloride (98-107) mmol/L Carbon Dioxide (22-30) mmol/L Anion Gap (5-15) MEQ/L BUN (9-20) mg/dL Creatinine (0.66-1.25) mg/dL Estimated GFR ML/MIN Glucose (74-106) mg/dL POC Glucometer 236 H (74 to 106) mg/dL Calcium (8.4-10.2) mg/dL Total Bilirubin (0.2-1.3) mg/dL AST (17-59) U/L ALT (0-50) U/L Alkaline Phosphatase (38-126) U/L Troponin I (0.000-0.034) ng/mL Serum Total Protein (6.3-8.2) g/dL Albumin (3.5-5.0) g/dL Slides for Path Review Micro Results-Entire Visit: Microbiology 03/18/23 11:37 Urine Culture - Final Catherized Enterobacter Clocae Complex Accuchecks Date 03/20/23 Date 03/19/23 Date 03/19/23 Date 03/19/23 Time 07:50 Time 20:45 Time 17:06 Time 11:23 - Radiology Exams Ordered Rad Exams-Entire Visit: Radiology Procedures Category Date Time Status CHEST 1 VIEW (PORTABLE) Stat Exams 03/18/23 10:27 Completed ECHO W/2D AND DOPPLER [US] Stat Exams 03/19/23 13:09 Taken HEAD WITHOUT CONTRAST [CT] Stat Exams 03/18/23 10:27 Completed - Procedures and Test Procedures and Tests throughout Hospitalization: Therapy Orders & Screens 03/18/23 15:22 PT Eval & Treat (MD Order) ONCE Reason for Eval:: failure to thrive Diagnosis: Urinary tract infection OT Eval and Treat (MD Order) ONCE Comment: Physician Instructions: Reason For Exam: Diagnosis: Urinary tract infection 03/18/23 15:24 ST Eval & Treat (MD Order) ROUTINE Comment: Physician Instructions: Reason For Exam: Evaluate: aspiration Treat: Yes Reason for Eval: aspiration Diagnosis: Urinary tract infection 03/18/23 18:56 Respiratory Therapy Assessment DAILY Comment: Diagnosis: Urinary tract infection 03/19/23 08:53 EKG STAT Comment: Diagnosis: Urinary tract infection Discharge Exam General Appearance: no apparent distress Neurologic Exam: alert, disoriented, confusion Eye Exam: PERRL Ears, Nose, Throat Exam: normal ENT inspection Neck Exam: normal inspection Respiratory Exam: crackles/rales Cardiovascular Exam: regular rate/rhythm, normal heart sounds Gastrointestinal/Abdomen Exam: soft, normal bowel sounds Male Genitalia Exam: other (FC chronic urology following) Rectal Exam: deferred Back Exam: normal inspection Extremity Exam: normal inspection Skin Exam: pale Final Diagnosis/Problem List - Final Discharge Diagnosis/Problem (1) UTI (urinary tract infection) Current Visit: Yes Status: Acute Code(s): N39.0 - URINARY TRACT INFECTION, SITE NOT SPECIFIED (2) Altered mental status Current Visit: Yes Status: Chronic Code(s): R41.82 - ALTERED MENTAL STATUS, UNSPECIFIED (3) Infiltrate noted on imaging study Current Visit: Yes Status: Acute Code(s): R93.89 - ABNORMAL FINDINGS ON DX IMAGING OF OTH BODY STRUCTURES (4) History of stroke Current Visit: Yes Status: Acute Code(s): Z86.73 - PRSNL HX OF TIA (TIA), AND CEREB INFRC W/O RESID DEFICITS (5) CAD (coronary artery disease) Current Visit: No Status: Chronic Code(s): I25.10 - ATHSCL HEART DISEASE OF [place] CORONARY ARTERY W/O ANG PCTRS (6) Chronic a-fib Current Visit: No Status: Chronic Code(s): I48.20 - CHRONIC ATRIAL FIBRILLATION, UNSPECIFIED (7) Failure to thrive Current Visit: No Status: Chronic Code(s): [id number] - (8) Type 2 diabetes mellitus Current Visit: No Status: Chronic (9) Hypoglycemia Current Visit: No Status: Resolved Code(s): E16.2 - HYPOGLYCEMIA, UNSPEC IFIED (10) Chest pain Current Visit: Yes Status: Acute Code(s): R07.9 - CHEST PAIN, UNSPECIFIED (11) Elevated troponin Current Visit: Yes Status: Acute Code(s): R79.89 - OTHER SPECIFIED ABNORMAL FINDINGS OF BLOOD CHEMISTRY - Discharge Disposition: DC TO ANY "OTHER" CARE HOME Condition: Fair Prescriptions: New Levofloxacin [Levofloxacin 750Mg/150Ml D5w] 750 mg IV DAILY 5 Days Continue Budesonide [Budesonide Dr] 9 mg PO DAILY Albuterol Sulfate [Albuterol Sulfate Hfa] 2 puff IH QID Dronedarone Hydrochloride 400* [Multaq 400 MG] 200 mg PO BID Tamsulosin HCl 0.4 mg [Flomax 0.4 MG] 0.8 mg PO HS Atorvastatin Calcium 40 mg PO QHS Apixaban [Eliquis] 5 mg PO BID Psyllium Packet [Metamucil PACKET] 1 packet PO DAILY Midodrine HCl [Proamatine] 10 mg PO TID [place]-3 Fatty Acids [[place]-3] 1 cap PO DAILY Cholecalciferol (Vitamin D3) [Vitamin D3] 1 each PO WEEKLY Alpha Lipoic Acid 300 mg PO BID Magnesium Oxide 400 mg [Mag-Ox 400] 400 mg PO DAILY Ferrous Sulfate 325 mg [Feosol 325 mg] 1 tab PO DAILY Aspirin EC 81 mg [Ecotrin 81 mg] 81 mg PO DAILY Finasteride 5 mg [Proscar 5 MG] 5 mg PO DAILY PANTOPRAZOLE 40 mg Tablet [Protonix 40MG Tablet] 40 mg PO DAILY Insulin Aspart (Niacinamide) [Fiasp 100 Unit/ml Flextouch] 1 unit SQ UD PRN PRN Reason: dm Acetaminophen 325 mg [Tylenol 325 mg] 2 tab PO Q4H PRN PRN Reason: pain/fever Tramadol HCl 50 mg [Ultram 50 mg] 50 mg PO Q6H PRN PRN Reason: Pain Insulin Detemir [Levemir] 10 units SQ DAILY #0 Mirabegron [Myrbetriq] 25 mg PO HS Follow up with: JOSE ALBERTO GRAJEDA [Primary Care Provider] - RUTH ELLIOTT [CONSULTING PHYSICIAN] - 5 Days
[2023-03-20] MEDS: HUMALOG SQ PRN (11:57)
[2023-03-20] MEDS: Metamucil PACKET PO SCH (13:08)
--- NOTE | 2023-03-20 13:22 | PCM.DCORD ---
- Discharge Disposition: DC TO ANY "OTHER" [facility] Condition: Fair Prescriptions: New Levofloxacin [Levofloxacin 750Mg/150Ml D5w] 750 mg IV DAILY 5 Days Metoprolol Succinate 12.5 mg PO DAILY 30 Days #15 tablet Continue Budesonide [Budesonide Dr] 9 mg PO DAILY Albuterol Sulfate [Albuterol Sulfate Hfa] 2 puff IH QID Dronedarone Hydrochloride 400* [Multaq 400 MG] 200 mg PO BID Tamsulosin HCl 0.4 mg [Flomax 0.4 MG] 0.8 mg PO HS Atorvastatin Calcium 40 mg PO QHS Apixaban [Eliquis] 5 mg PO BID Psyllium Packet [Metamucil PACKET] 1 packet PO DAILY [place]-3 Fatty Acids [[place]-3] 1 cap PO DAILY Cholecalciferol (Vitamin D3) [Vitamin D3] 1 each PO WEEKLY Alpha Lipoic Acid 300 mg PO BID Magnesium Oxide 400 mg [Mag-Ox 400] 400 mg PO DAILY Ferrous Sulfate 325 mg [Feosol 325 mg] 1 tab PO DAILY Aspirin EC 81 mg [Ecotrin 81 mg] 81 mg PO DAILY Finasteride 5 mg [Proscar 5 MG] 5 mg PO DAILY PANTOPRAZOLE 40 mg Tablet [Protonix 40MG Tablet] 40 mg PO DAILY Insulin Aspart (Niacinamide) [Fiasp 100 Unit/ml Flextouch] 1 unit SQ UD PRN PRN Reason: dm Acetaminophen 325 mg [Tylenol 325 mg] 2 tab PO Q4H PRN PRN Reason: pain/fever Tramadol HCl 50 mg [Ultram 50 mg] 50 mg PO Q6H PRN PRN Reason: Pain Insulin Detemir [Levemir] 10 units SQ DAILY #0 Mirabegron [Myrbetriq] 25 mg PO HS Changed Midodrine HCl [Proamatine] 5 mg PO TID #0 Additional Instructions: RESUME PREVIOUS [facility] ORDERS REAFFIRM DIET ORDER WITH [facility] PHYSICIAN Follow up with: JOSE ALBERTO GRAJEDA [Primary Care Provider] - RUTH ELLIOTT [CONSULTING PHYSICIAN] - 5 Days
[2023-03-25] MEDS ORDERED: VITAMIN D2 PO SCH (10:00)
== END 2023-03-20 14:13 ==
LOC: ED 10:09 → MED SURG 14:42
PROVIDERS: ADMIT Internal Medicine; ATTEND Internal Medicine
DX: N39.0 Urinary tract infection, site not specified (principal); R41.82 Altered mental status, unspecified; R93.89 Abnormal findings on diagnostic imaging of other specified body structures; I25.10 Atherosclerotic heart disease of native coronary artery without angina pectoris; I48.20 Chronic atrial fibrillation, unspecified; R62.7 Adult failure to thrive; E11.9 Type 2 diabetes mellitus without complications; E16.2 Hypoglycemia, unspecified; R07.9 Chest pain, unspecified; I25.2 Old myocardial infarction; I10 Essential (primary) hypertension; Z79.4 Long term (current) use of insulin; Z86.73 Personal history of transient ischemic attack (TIA), and cerebral infarction without residual deficits; Z79.01 Long term (current) use of anticoagulants; Z79.899 Other long term (current) drug therapy; Z20.828 Contact with and (suspected) exposure to other viral communicable diseases; Z95.0 Presence of cardiac pacemaker
CPT/HCPCS: 36000; 36415; 51702; 70450; 71045; 80053; 80307; 81001; 82077; 82947; 84484; 85025; 85730; 87077; 87086; 87186; 92610; 93005; 93306; 94640; 94760; 96365; 97161; 99285; Q3014; G0378; J0456; J0696; J1817; A9270-GY

== ENCOUNTER 2023-04-06 12:54 | Emergency (ER) | payer MEDICARE ==
--- NOTE | 2023-04-06 12:57 | ERPHSYRPT ---
- History of Present Illness Time Seen by Provider: 04/06/23 12:57 Source: patient, family Exam Limitations: no limitations Physician History: This is a 68-year-old white male patient of Dr. Cameron well-known to me in the emergency department. Patient was recently discharged from [facility] where he stayed in the hospital for 2 days between 03/18 and 03/20/2023. He was discharged to a shelter on 03/20/2023. Today is the first day the patient was home. The patient's daughter, who knows his clinical and medical condition well felt that he was a little more altered today than the other days in the shelter. She wanted to make sure that we performed a urinalysis and obtain a urine culture. Patient's complaint is then a pain in his central back. Patient was seen in our emergency department 03/18/2023. He was diagnosed with altered mental status and urinary tract infection. He was discharged to the shelter on prescription for Levaquin. A CT scan of the head was performed on 03/18/2023 which showed nonacute senile brain and multiple remote lacunar infarcts. Patient has multiple medical issues and including gastroesophageal reflux disease, orthostatic hypotension, insulin-dependent diabetes, atrial fibrillation on Eliquis, hyperlipidemia, hypertension, TIAs and coronary artery disease (CABG and stents). Patient has no complaints of chest pain or shortness of breath. He denies abdominal pain. Timing/Duration: today Method of Injury: other (No injury) Severity of Pain-Max: mild Severity of Pain-Current: mild Modifying Factors: Improves With: nothing Associated Symptoms: denies symptoms Previous symptoms: same symptoms as today, recently seen, recent hospitalization, recently treated Allergies/Adverse Reactions: acetaminophen [From Percocet] Adverse Reaction (Verified 04/06/23 13:51) confusion hydromorphone [From Dilaudid] Adverse Reaction (Verified 04/06/23 13:51) confusion morphine Adverse Reaction (Verified 04/06/23 13:51) confusion oxycodone [From Percocet] Adverse Reaction (Verified 04/06/23 13:51) confusion Home Medications: Albuterol Sulfate [Albuterol Sulfate Hfa] 2 puff IH QID 10/24/20 [History] Budesonide [Budesonide Dr] 9 mg PO DAILY 10/24/20 [History] Dronedarone Hydrochloride 400* [Multaq 400 MG] 200 mg PO BID 09/16/21 [History] Atorvastatin Calcium 40 mg PO QHS 01/01/22 [History] Tamsulosin HCl 0.4 mg [Flomax 0.4 MG] 0.8 mg PO HS 01/01/22 [History] Alpha Lipoic Acid 300 mg PO BID 10/12/22 [History] Apixaban [Eliquis] 5 mg PO BID 10/12/22 [History] Cholecalciferol (Vitamin D3) [Vitamin D3] 1 each PO WEEKLY 10/12/22 [History] Bode-3 Fatty Acids [Bode-3] 1 cap PO DAILY 10/12/22 [History] Psyllium Packet [Metamucil PACKET] 1 packet PO DAILY 10/12/22 [History] Aspirin EC 81 mg [Ecotrin 81 mg] 81 mg PO DAILY 12/01/22 [History] Ferrous Sulfate 325 mg [Feosol 325 mg] 1 tab PO DAILY 12/01/22 [History] Magnesium Oxide 400 mg [Mag-Ox 400] 400 mg PO DAILY 12/01/22 [History] Finasteride 5 mg [Proscar 5 MG] 5 mg PO DAILY 12/28/22 [History] PANTOPRAZOLE 40 mg Tablet [Protonix 40MG Tablet] 40 mg PO DAILY 02/09/23 [History] Insulin Aspart (Niacinamide) [Fiasp 100 Unit/ml Flextouch] 1 unit SQ UD PRN 02/10/23 [History] Acetaminophen 325 mg [Tylenol 325 mg] 2 tab PO Q4H PRN 02/23/23 [History] Tramadol HCl 50 mg [Ultram 50 mg] 50 mg PO Q6H PRN 02/23/23 [History] Mirabegron [Myrbetriq] 25 mg PO HS 03/18/23 [History] Hx Tetanus, Diphtheria Vaccination/Date Given: No Hx Influenza Vaccination/Date Given: No Hx Pneumococcal Vaccination/Date Given: No Travel Risk - International Travel Have you traveled outside of the country in past 3 weeks: No - Coronavirus Screening Are you exhibiting any of the following symptoms?: No Close contact with a COVID-19 positive Pt in past 14-21 Days: No - Vaccine Status Have you recieved a Covid-19 vaccination: Yes 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 - Vaccination Dates Date of 2cond Vaccination (if applicable): 2019 if Unknown: unknown - Review of Systems Constitutional: No Symptoms Eyes: No Symptoms Ears, Nose, & Throat: No Symptoms Respiratory: No Symptoms Cardiac: No Symptoms Abdominal/Gastrointestinal: No Symptoms Genitourinary Symptoms: Flank Pain Musculoskeletal: Back Pain Skin: No Symptoms Neurological: No Symptoms Psychological: No Symptoms Endocrine: No Symptoms Hematologic/Lymphatic: No Symptoms Immunological/Allergic: No Symptoms All Other Systems: Reviewed and Negative - Past Medical History Pertinent Past Medical History: Yes Neurological History: Stroke, TIA ENT History: Other Cardiac History: Coronary Artery Disease, Hypertension, Myocardial Infarction (CA) Respiratory History: No Pertinent History Endocrine Medical History: Diabetes Type II Musculoskeletal History: Arthritis, Fractures GI Medical History: Crohns Disease, GERD History: No Pertinent History Psycho-Social History: No Pertinent History Male Reproductive Disorders: Prostate Problems Other Medical History: ANEMIA, ATAXIA, A-FIB, ATROPHY OF PANCREAS, 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, LUNG NODULES, MALNOURISHED, ORTHOSTATIC HYPOTENSION, SENSORY NEUROPATHY, VASCULAR INSUFFICIENCY OF EXTREMITIY - Past Surgical History Past Surgical History: Yes Neuro Surgical History: No Pertinent History Cardiac: CABG, Cardiac Catheterization, Cardiac Stent, Other Respiratory: No Pertinent History Gastrointestinal: Appendectomy, Other Genitourinary: No Pertinent History Musculoskeletal: Orthopedic Surgery Male Surgical History: No Pertinent History Other Surgical History: 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, intestinal resection, triple bypass - Social History Smoking Status: Former smoker How long have you smoked: years Exposure to second hand smoke: Yes Drug Use: none Patient Lives Alone: No Significant Family History: no pertinent family hx - Nursing Vital Signs Nursing Vital Signs: Initial Vital Signs Temperature 98.3 F 04/06/23 13:53 Pulse Rate 77 04/06/23 13:53 Respiratory Rate 18 04/06/23 13:53 Blood Pressure 134/68 04/06/23 13:53 O2 Sat by Pulse Oximetry 95 04/06/23 13:53 Pain Scale Pain Intensity 5 - Physical Exam General Appearance: no apparent distress, alert Eye Exam: PERRL/EOMI, eyes nml inspection Ears, Nose, Throat Exam: normal ENT inspection, moist mucous membranes Neck Exam: normal inspection, non-tender, supple, full range of motion Respiratory Exam: normal breath sounds, lungs clear, airway intact, No chest tenderness, No respiratory distress Cardiovascular Exam: regular rate/rhythm, normal heart sounds, normal peripheral pulses Gastrointestinal Exam: soft, normal bowel sounds, No tenderness, No pulsatile mass Rectal Exam: not done Back Exam: normal inspection, normal range of motion, CVA tenderness, vertebral tenderness (Lumbar level) Extremity Exam: normal inspection, normal range of motion, pelvis stable Neurologic Exam: alert, oriented x 3, cooperative, 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 as tested, normal mood/affect, nml cerebellar function, nml station & gait, sensation nml Skin Exam: normal color, warm, dry Lymphatic Exam: No adenopathy SpO2 Interpretation: normal O2 Delivery: Room Air - Course Nursing assessment & vital signs reviewed: Yes Ordered Tests: Active Orders 24 hr Category Date Time Status IV Insertion STAT Care 04/06/23 13:58 Active ABDOMEN AND PELVIS W/0 CONTRAS [CT] Stat Exams 04/06/23 13:58 Completed CULTURE,URINE Stat Lab 04/06/23 14:10 Received UA W/RFX UR CULTURE Stat Lab 04/06/23 14:10 Completed Medication Summary Discontinued Medications Generic Name Dose Route Start Last Admin Trade Name Daphne PRN Reason Stop Dose Admin Acetaminophen 650 mg 04/06/23 15:59 Acetaminophen 325 Mg Tablet PO 04/06/23 16:00 STAT ONE Sodium Chloride 500 mls @ 500 mls/hr 04/06/23 14:00 04/06/23 15:16 Sodium Chloride 0.9% 500 Ml IV 04/06/23 14:59 Infused .Q1H ONE Infusion Sodium Chloride Confirm 04/06/23 14:10 Sodium Chloride 0.9% 500 Ml Administered 04/06/23 14:11 Dose 500 mls @ ud IV .STK-MED ONE Piperacillin Sod/Tazobactam 100 mls @ 200 mls/hr 04/06/23 14:57 04/06/23 15:06 Sod 3.375 gm/ Sodium Chloride IV 04/06/23 15:26 200 mls/hr STAT ONE Administration Sodium Chloride Confirm 04/06/23 15:01 Sodium Chloride 100ml Mini-Bag Plus Administered 04/06/23 15:02 Dose 100 mls @ ud IV .STK-MED ONE Piperacillin Sod/Tazobactam Sod Confirm 04/06/23 15:01 Piperacillin/Tazobactam Sodium 3.375 Gm Vial Administered 04/06/23 15:02 Dose 3.375 gm IV .STK-MED ONE Lab/Rad Data: Laboratory Results 04/06/23 Range/Units 14:10 Urine Color Dark Yellow (Yellow) Urine Appearance Turbid A (Clear) Urine pH 5.5 (4.6-8.0) Ur Specific Lynch 1.025 (1.005-1.030) Urine Protein 300 A (Negative) Urine Glucose (UA) Negative (Negative) mg/dL Urine Ketones Trace A (Negative) Urine Blood Moderate A (Negative) Urine Nitrite Negative (Negative) Urine Bilirubin Negative (Negative) Urine Urobilinogen 1.0 A (0.2) mg/dL Ur Leukocyte Esterase Large A (Negative) U Hyaline Cast (Auto) 11-20 (0-2) /LPF Urine Microscopic RBC 21-50 A (0-5) /HPF Urine Microscopic WBC >100 A (0-5) /HPF Ur Epithelial Cells None Seen (None Seen) /HPF Urine Bacteria Few A (None Seen) /HPF Urine Culture Reflexed ORDERED SEPARATELY (NO) - Progress Progress: unchanged Progress Note: 04/06/23 14:14 This patient's medical issue is 1 of low to moderate complexity. The level complexity in the workup performed is based on the review of the patient's past medical history, review the patient's drug allergy list, review of the patient's medication list, history present illness and physical findings on examination. Workup in this patient that the patient, patient's daughter and myself agreed upon is to change out the patient's Willams catheter, send a fresh urine specimen and make sure we obtain a urine culture, and perform a CT scan of the abdomen pelvis to evaluate his aorta to make sure there is no abnormality in the aorta that is causing his back pain. It is my clinical opinion that the patient, today, looks better than I have seen him in a long time. I have seen him multiple times in the emergency department he is much more awake alert and oriented. He is hard of hearing but he does not appear to be in any distress. His vital signs are adequate. 04/06/23 15:31 I reviewed the urinalysis study. The patient has a significant urinary tract infection. We will provide him with an IV dose of Zosyn 3.375 mg. We will remotely send a prescription for ampicillin to his pharmacy. 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 The daughter and I had this discussion and this is what we decided and agreed upon. We are awaiting the CT scan results. Patient is awake alert oriented and eating on his own. 04/06/23 15:38 04/06/23 15:58 Patient requested some pain medicine. He is medication allergy list states acetaminophen is an allergy. We double checked. Patient and his daughter state that this patient is not allergic to acetaminophen. In fact the patient usually takes acetaminophen first. If this does not work he will take half a Elmo 5/325. His systolic blood pressure is in the high 90s to low 100s and therefore we will not be giving him any narcotics at this time. 04/06/23 16:[address] scan of the abdomen pelvis without contrast was interpreted by the radiologist and I reviewed the body report and the impression. There is no evidence for any acute intra-abdominal or intrapelvic abnormalities. There is no evidence for aortic rupture. There is atherosclerotic disease of the aorta. Counseled pt/family regarding: lab results, diagnosis, need for follow-up, rad results Medical Desision Making - Independent Historian Additional History obtained from: Child (Daughter) - Diagnostic Testing Diagnostic test were ordered, analyzed, and reviewed by me: Yes Radiological Interpretation: Reviewed by me, Teleradiologist Report - Risk of complications The pt has a mod risk of morbidity or mortality based on: Need for prescription drug management - Departure Departure Disposition: Home Clinical Impression: Back pain, UTI (urinary tract infection) Condition: Stable Critical Care Time: No Referrals: JOSE ALBERTO CAMERON [Primary Care Provider] - Follow up/PCP as directed Additional Instructions: Drink plenty of fluids. Take your medication as prescribed. Follow-up with your primary care provider for further evaluation and management. Prescriptions: Ampicillin Trihydrate 500 mg PO QID #28 cap
[2023-04-06] MEDS ORDERED: Sodium Chloride 0.9% 500 ML 500 ML IV ONE ×2 (14:00→14:10)
[2023-04-06 14:01] VITALS: TEMP 98.3
[2023-04-06 14:51] LABS: Appearance Turbid (Clear); Bacteria Few /HPF (None Seen); Bilirubin Negative (Negative); Blood Moderate (Negative); Epithelial Cells None Seen /HPF (None Seen); Glucose, Urine Negative (Negative); Ketones Trace (Negative); Leukocyte Esterase Large (Negative); Nitrite Negative (Negative); Ph 5.5 (4.6-8.0); Protein,Urine Dip 300 (Negative); RBC 21-50 /HPF (0-5); Specific Gravity 1.025 (1.005-1.030); WBC >100 /HPF (0-5)
[2023-04-06 14:52] LABS: ADD URINE CULTURE? ORDERED SEPARATELY (NO)
[2023-04-06] MEDS ORDERED: PIPERACILLIN/TAZOBACTAM 3.375 GM in Sodium Chloride 100ML MINI-BAG PLUS 100 ML IV ONE (14:57)
[2023-04-06] MEDS ORDERED: Sodium Chloride 100ML MINI-BAG PLUS 100 ML IV ONE (15:01)
[2023-04-06] MEDS ORDERED: PIPERACILLIN/TAZOBACTAM IV ONE (15:01)
[2023-04-06 15:17] VITALS: O2SAT 93
[2023-04-06 15:56] VITALS: PULSE 76; RESP 20
[2023-04-06] MEDS ORDERED: TYLENOL 325 MG PO ONE (15:59)
--- NOTE | 2023-04-06 16:15 | XRAY ---
CLINICAL HISTORY:Flank/back pain COMPARISON:None. TECHNIQUE:A contiguous, multislice, nonenhanced CT scan of the abdomen and pelvis was performed in the axial plane with multiplanar reconstructions. FINDINGS: Average-sized liver measuring about 14.8 cm in craniocaudal axis showing homogeneous attenuation with no obvious focal mass lesion within the limitations of non-contrast study. No intrahepatic biliary dilatation. The gallbladder is not clearly visualized and probably collapsed. Needs ultrasound correlation. Atrophied pancreas showing multiple calcifications probably related to prior pancreatic insult [chronic pancreatitis]. Average sized spleen showing linear calcific densities within it mostly vascular calcifications. Splenic vascular calcifications and common hepatic artery calcifications noted No adrenal mass. Both kidneys appear normal in size, and show normal contour and attenuation. Right renal calculi noted measuring about 2.8 mm and 2.2 mm. Calcifications were also seen in left kidney probably renal calculi vs renal sinus calcifications. No hydronephrosis in either kidney. No ascites. No para-aortic lymphadenopathy. Atherosclerotic calcifications of the abdominal aorta and iliac vessels. Rectum is distended with fecal matter, shows apparent thickening of the rectal wall with mild adjacent fat stranding concerning for stercoral colitis. No significant bowel dilatation. Appendix is not clearly visualized. No pneumoperitoneum. The urinary bladder is empty, Willams's bulb in situ showing air densities within it, probably iatrogenic. Metallic densities seen in the anterior abdominal wall in the midline lower abdomen representing prior surgical intervention Average-sized prostate. Multiple calcific densities in the pelvis suggest pelvic phleboliths Degenerative changes seen in the visualized spine. Osteoporotic bones. Narrowing of L5-S1 intervertebral disc space showing vacuum phenomenon at multiple levels. Anterior wedging of the T11, T12 vertebrae. Left-sided femoral neck internal fixation plates are seen in place with possible fragmentation of the tip of greater trochenter. Visualized sections of lower chest shows reticulonodular opacities in both lower lobes showing tree-in-bud appearance could represent post-inflammatory/infective changes. Calcified granulomas seen in both lower lobes and emphysematous changes predominantly in the visualized upper lobes. Normal cardiac size IMPRESSION: Limited organ parenchymal evaluation within the limitations of noncontrasted study. The gallbladder is not clearly visualized, probably collapsed. Needs ultrasound correlation. Atrophied pancreas showing multiple calcifications probably related to prior pancreatic insult [chronic pancreatitis]. Small Right nonobstructing renal calculi. Calcifications in the left kidney are probably renal calculi vs renal sinus calcifications. Rectum is distended with fecal matter and shows apparent thickening of the rectal wall with mild adjacent fat stranding concerning stercoral colitis. The rest of the findings as detailed above. Electronically Signed by: Brad Mccurdy MD. (04/06/2023 16:10:22 EST)
[2023-04-06] MEDS ORDERED: TYLENOL 325 MG ONE (16:24)
[2023-04-06 16:44] VITALS: BP 144/85
== END 2023-04-06 16:53 | disposition home or self-care (01) ==
LOC: ED 12:54
DX: N39.0 Urinary tract infection, site not specified (principal); M54.6 Pain in thoracic spine; E11.9 Type 2 diabetes mellitus without complications; E78.5 Hyperlipidemia, unspecified; I10 Essential (primary) hypertension; Z79.01 Long term (current) use of anticoagulants; Z79.4 Long term (current) use of insulin; Z79.891 Long term (current) use of opiate analgesic; Z79.899 Other long term (current) drug therapy
CPT/HCPCS: 36000; 51702; 74176; 81001; 87086; 96365; 99284; A9270-GY